=== PATIENT | male | born 1950 | race Caucasian/White ===

== ENCOUNTER 2022-10-10 13:31 | Outpatient (OUT) | payer MEDICARE, OTHER, SELFPAY ==
--- NOTE | 2022-10-10 13:36 | MR_ITS ---
The [address] [address] Patient Name: LISA LUGO MRN: [id number] date: 1950 Sex: M Assigned Patient Location: MRI Current Patient Location: MRI Accession/Order Number: [id number] Exam Date: 10/10/2022 13:50 Report Date: 10/10/2022 17:05 At the request of: JUANA GUTIERREZ Procedure: MR knee RT wo con EXAMINATION: MR knee RT wo con HISTORY: M23.91 ; chronic medial right knee pain and swelling COMPARISON: No relevant comparison available. TECHNIQUE: A complete multi-planar MRI was performed. FINDINGS: MEDIAL COMPARTMENT MEDIAL MENISCUS: No visible tear or significant degeneration. CARTILAGE: No visible defect. BONES: No marrow pathology, fracture, or significant arthropathy. MCL AND MEDIAL CAPSULE: Grade II sprain of the medial collateral ligament. LATERAL COMPARTMENT LATERAL MENISCUS: No visible tear or significant degeneration. CARTILAGE: No visible defect. BONES: No marrow pathology, fracture, or significant arthropathy. LCL/POSTEROLAT COMPLEX: Normal lateral collateral ligament, fascicles, lateral capsule and ligaments. ANTERIOR COMPARTMENT PATELLA: No marrow pathology, fracture, or significant arthropathy. CARTILAGE: Marked thinning of cartilage overlying the lateral facet. TENDONS: Normal. EFFUSION: Large joint effusion. ACL: Normal appearing ligament. PCL: Normal appearing ligament. MENISCOFEMORAL: Normal meniscofemoral ligaments. OTHER: Small Manning's cyst. IMPRESSION: 1. Grade 2-3 strain of the medial collateral ligament. 2. Large joint effusion. 3. No appreciable meniscal tear. 4. Marked thinning of the patella articular cartilage overlying the lateral facet. 5. Small Manning's cyst. Electronically authenticated by: HEBER ALMONTE Date: 10/10/2022 17:05
== END 2022-10-10 13:32 ==
LOC: MRI 13:31
PROVIDERS: PCP Internal Medicine; Visit Provider Internal Medicine
DX: M23.91 Unspecified internal derangement of right knee (principal); M71.21 Synovial cyst of popliteal space [Baker], right knee
CPT/HCPCS: 73721

== ENCOUNTER 2022-10-29 07:28 | Outpatient (OUT) | payer MEDICARE, OTHER, SELFPAY ==
[2022-10-29 07:54] LABS: Basophils Percent Auto 0.4 % (0.2-2.0); Eosinophils Percent Auto 1.2 % (0.9-7.0); Hematocrit 38.7 % (42.0-54.0); Hemoglobin 12.5 g/dL (14.0-18.0); Immature Granulocytes Abs Auto 0.01 10^3/uL (0.00-0.03); Immature Granulocytes Pct Auto 0.4 % (0.0-0.5); Lymphocytes Absolute Auto 0.9 10^3/uL (1.2-3.8); Lymphocytes Percent Auto 34.9 % (20.5-60.0); Mean Corpuscular HGB Conc 32.3 g/dL (29.9-35.2); Mean Corpuscular Hemoglobin 28.7 pg (25.9-34.0); Mean Corpuscular Volume 88.8 fL (80.0-94.0); Mean Platelet Volume 10.3 fL (9.5-13.5); Monocytes Absolute Auto 0.2 10^3/uL (0.3-0.8); Monocytes Percent Auto 8.7 % (1.7-12.0); Neutrophils Absolute Auto 1.4 10^3/uL (1.4-6.5); Neutrophils Percent Auto 54.4 % (43.0-75.0); Platelet Count 162 10^3/uL (150-450); Red Blood Count 4.36 10^6/uL (4.70-6.10); Red Cell Distribution Width 13.7 % (11.0-15.0); White Blood Count 2.5 10^3/uL (4.0-11.0)
[2022-10-29 08:10] LABS: Estimated Average Glucose 151 mg/dL; Glycohemoglobin A1C 6.9 % (4.5-6.2)
[2022-10-29 08:12] LABS: Alanine Aminotransferase 50 U/L (16-63); Anion Gap 13.1; BUN Creatinine Ratio 17.7; Carbon Dioxide 27.7 mmol/L (21.0-32.0); Chloride 105 mmol/L (98-107); Chol HDL Ratio 2.9; Cholesterol 123 mg/dL (<=200); Estimated GFR (African America >60 (>=60); Estimated GFR (Non-African Ame >60 (>=60); Glucose 112 mg/dL (74-106); HDL Cholesterol 43 mg/dL (40-60); Potassium 3.8 mmol/L (3.5-5.1); Sodium 142 mmol/L (136-145); Triglycerides 154 mg/dL (<=150); VLDL CHOLESTEROL 30.8 mg/dL
[2022-10-29 10:32] LABS: Microalbumin Urine Random 1.6 mg/dL (<=30.0)
== END 2022-10-29 07:29 | disposition home or self-care (01) ==
LOC: LAB 07:30
PROVIDERS: PCP Internal Medicine; Visit Provider Internal Medicine
DX: E11.65 Type 2 diabetes mellitus with hyperglycemia (principal); Z79.899 Other long term (current) drug therapy; I10 Essential (primary) hypertension; E78.2 Mixed hyperlipidemia
CPT/HCPCS: 36415; 80048; 80061; 82043; 83036; 84460; 85025

== ENCOUNTER 2023-04-02 07:25 | Outpatient (OUT) | payer MEDICARE, OTHER, SELFPAY ==
[2023-04-02 07:45] LABS: Basophils Percent Auto 0.6 % (0.2-2.0); Eosinophils Percent Auto 0.3 % (0.9-7.0); Hematocrit 39.5 % (42.0-54.0); Hemoglobin 12.7 g/dL (14.0-18.0); Immature Granulocytes Abs Auto 0.01 10^3/uL (0.00-0.03); Immature Granulocytes Pct Auto 0.3 % (0.0-0.5); Lymphocytes Absolute Auto 0.9 10^3/uL (1.2-3.8); Lymphocytes Percent Auto 26.9 % (20.5-60.0); Mean Corpuscular HGB Conc 32.2 g/dL (29.9-35.2); Mean Corpuscular Hemoglobin 28.8 pg (25.9-34.0); Mean Corpuscular Volume 89.6 fL (80.0-94.0); Mean Platelet Volume 10.4 fL (9.5-13.5); Monocytes Absolute Auto 0.3 10^3/uL (0.3-0.8); Monocytes Percent Auto 7.9 % (1.7-12.0); Neutrophils Absolute Auto 2.2 10^3/uL (1.4-6.5); Platelet Count 187 10^3/uL (150-450); Red Blood Count 4.41 10^6/uL (4.70-6.10); Red Cell Distribution Width 13.8 % (11.0-15.0); White Blood Count 3.4 10^3/uL (4.0-11.0)
[2023-04-02 08:33] LABS: Alanine Aminotransferase 52 U/L (16-63); BUN Creatinine Ratio 17.4; Calcium 8.9 mg/dL (8.5-10.1); Carbon Dioxide 29.9 mmol/L (21.0-32.0); Chloride 104 mmol/L (98-107); Chol HDL Ratio 2.7; Cholesterol 118 mg/dL (<=200); Estimated GFR (African America >60 (>=60); Estimated GFR (Non-African Ame >60 (>=60); Glucose 154 mg/dL (74-106); HDL Cholesterol 43 mg/dL (40-60); Potassium 3.9 mmol/L (3.5-5.1); Sodium 142 mmol/L (136-145); Triglycerides 176 mg/dL (<=150); VLDL CHOLESTEROL 35.2 mg/dL
[2023-04-02 08:54] LABS: Estimated Average Glucose 160 mg/dL; Glycohemoglobin A1C 7.2 % (4.5-6.2)
[2023-04-02 09:18] LABS: Microalbumin Urine Random 6.4 mg/dL (<=30.0)
== END 2023-04-02 07:26 | disposition home or self-care (01) ==
PROVIDERS: PCP Internal Medicine; Visit Provider Internal Medicine
DX: E78.2 Mixed hyperlipidemia (principal); Z79.899 Other long term (current) drug therapy; E11.65 Type 2 diabetes mellitus with hyperglycemia; I25.10 Atherosclerotic heart disease of native coronary artery without angina pectoris
CPT/HCPCS: 36415; 80048; 80061; 82043; 83036; 84460; 85025

== ENCOUNTER 2023-09-17 09:30 | Outpatient (OUT) | payer MEDICARE, OTHER, SELFPAY ==
--- NOTE | 2023-09-17 09:47 | US_ITS ---
[place] [id number] Patient Name: LISA LUGO MRN: [id number] date: 1950 Sex: M Assigned Patient Location: US Current Patient Location: Accession/Order Number: [id number] Exam Date: 09/17/2023 09:49 Report Date: 09/18/2023 06:06 At the request of: FRANCOISE BARONE Procedure: US renal BI EXAMINATION: US renal BI HISTORY: Gross hematuria COMPARISON: CT abdomen pelvis 11/25/2021 TECHNIQUE: Ultrasound examination was performed of the kidneys and urinary bladder. FINDINGS: RIGHT KIDNEY: No evidence of pelvocaliectasis, mass, or calculi. Slight cortical thinning, 9 mm. Normal renal cortical parenchymal echogenicity. Color Doppler demonstrates blood flow within the kidney. Kidney: 11.9 x 5.9 x 4.9 cm LEFT KIDNEY: No evidence of pelvocaliectasis, mass, or calculi. No significant cortical thinning. Normal renal cortical parenchymal echogenicity. Color Doppler demonstrates blood flow within the kidney. Kidney: 11.1 x 4.90 4.8 cm BLADDER: No visible wall thickening, mass, or calculi. Slightly heterogeneous prostate, 4.9 x 3.6 x 2.3 cm in size. US/US renal BI IMPRESSION: 1. Unremarkable kidneys and urinary bladder. 2. Slightly heterogeneous prostate. Electronically authenticated by: HEBER ALMONTE Date: 09/18/2023 06:06
--- OUTSIDE RECORDS SUMMARY | 2023-09-17 10:09 | XMS_ITS | CCD ---
Author Organization [facility] Care Team Providers Care Car Hiker Name Role Phone THERON MENDOZA Unavailable Unavailable TINO GUNDERSON Unavailable Unavailable RACHELL, MO GREGORIO Unavailable Unavailable RACHELL, MO AM Unavailable Unavailable IN Unavailable Unavailable UNKNOWN, PROVIDER Unavailable Unavailable UNKNOWN, PROVIDER Unavailable Unavailable UNKNOWN, PROVIDER Unavailable Unavailable GUIDO, THERON Unavailable Unavailable GUIDO, THERON Unavailable Unavailable PHYSICIAN, DEFAULT Unavailable Unavailable PHYSICIAN, DEFAULT Unavailable Unavailable GUIDO, THERON Unavailable Unavailable GUIDO, THERON Primary Care Physician [phone] GUIDO, DR ARIAS Primary Care Unavailable ELLIE, DR OWUSU Admitting Unavailable ARGUETA, DR OWUSU Attending Unavailable ARGUETA, DR OWUSU Consulting Unavailable SCHNEBLE, PARAS Consulting Unavailable BALL, DR ARIAS Attending Unavailable BALL, DR ARIAS Primary Care Unavailable BALL, DR ARIAS Admitting Unavailable BALL, DR ARIAS Attending Unavailable BALL, DR ARIAS Consulting Unavailable BALL, DR ARIAS Primary Care Unavailable BALL, DR ARIAS Admitting Unavailable BALL, DR ARIAS Referring Unavailable BALL, DR ARIAS Attending Unavailable BALL, DR ARIAS Consulting Unavailable BALL, DR ARIAS Primary Care Unavailable BALL, DR ARIAS Admitting Unavailable BALL, DR ARIAS Attending Unavailable BALL, DR ARIAS Consulting Unavailable BALL, DR ARIAS Primary Care Unavailable BALL, DR ARIAS Admitting Unavailable Ball, Theron Unavailable Tom ARGUETA Attending Unavailable Tom ARGUETA Attending Unavailable Allergies Allergy Classification Reported Allergen(s) Allergy Type Date of Onset Reaction(s) Facility (1 source) 71694,00; Translations: [03852,00] Propensity to adverse reactions (disorder) 9 [facility] Repository (11 sources) [facility] Drug Allergy diarrhea, Unknown [email or web address] Other (3 sources) patient allergy list reviewed by nurse or physicia Propensity to adverse reactions 8 Comment:Done [email or web address] Other (1 source) No Known Medication Allergies; Translations: [No Known Medication Allergies] Propensity to adverse reactions (disorder) [facility] Repository Medications Current Medications Medication Drug Class(es) Dates Sig (Normalized) Sig (Original) aspirin 81 mg oral tablet (9 sources) Platelet Aggregation Inhibitor, Nonsteroidal Anti-inflammatory Drug Start: 12-15-2018 take 1 tablet by mouth once daily aspirin 81 mg oral tablet 81 mg = 1 tab(s), Oral, Daily Start Date: 12/15/18 Status: Ordered take 1 tablet by luis felipe th every twenty-four hours Aspirin 81 MG 1 tablet Orally Once a day Active Aspirin Active atenolol 25 mg oral tablet (9 sources) beta-Adrenergic Cesar Start: 12-15-2018 take 1 tablet by mouth once daily atenolol 25 mg Tab 25 mg = 1 tab(s), Oral, Daily Start Date: 12/15/18 Status: Ordered atorvastatin 80 mg oral tablet (9 sources) HMG-CoA Reductase Inhibitor Start: 12-16-2018 take 1 tablet by mouth once daily atorvastatin 80 mg Tab 80 mg = 1 tab(s), Oral, Daily Start Date: 12/16/18 Status: Ordered celecoxib (8 sources) Nonsteroidal Anti-inflammatory Drug CeleBREX Not-Taking CeleBREX Active clopidogrel 75 mg oral tablet (7 sources) P2Y12 Platelet Inhibitor Start: 12-16-2018 take 1 tablet by mouth once daily Plavix 75 mg Tab 75 mg = 1 tab(s), Oral, Daily Start Date: 12/16/18 Status: Ordered glimepiride 1 mg oral tablet (1 source) Sulfonylurea Start: 03-21-2020 take 2 tablets by mouth once daily glimepiride 1 mg Tab 2 mg = 2 tab(s), Oral, Daily, Refills(s) 0 Start Date: 03/21/20 Status: Ordered 3 ml insulin glargine 100 unt/ml pen injector (6 sources) Insulin Analog Lantus SoloStar 100 UNIT/ML INJECT 50 UNITS UNDER THE SKIN DAILY Active Lantus Solostar Pen (1 source) Start: 12-15-2018 inject 50 [IU] by subcutaneous injection once daily Lantus Solostar Pen 50 unit(s), SubCutaneous, Daily Start Date: 12/15/18 Status: Ordered pantoprazole 40 mg delayed release oral tablet (9 sources) Proton Pump Inhibitor Start: 12-16-2018 take 1 tablet by mouth once daily Pantoprazole [address] Tab 40 mg = 1 tab(s), Oral, Daily Start Date: 12/16/18 Status: Ordered pioglitazone 15 mg oral tablet (7 sources) Peroxisome Proliferator Receptor alpha Agonist, Peroxisome Proliferator Receptor gamma Agonist, Thiazolidinedione Start: 04-10-2021 take 1 mg by mouth twice daily pioglitazone 15 mg Tab mg tab(s), Oral, BID, Refills(s) 0 Start Date: 04/10/21 Status: Ordered Pioglitazone HCl 15 mg TAKE 1 TABLET DAILY Active Completed/Discontinued Medications Medication Drug Class(es) Dates Sig (Normalized) Sig (Original) cephalexin 500 mg oral capsule (1 source) Cephalosporin Antibacterial Start: 11-20-2021 take 1 capsule by mouth once daily Keflex 500 mg Cap 500 mg = 1 cap(s), Oral, Daily, Take 1 tab day before procedure and 1 after procedure, # 2 cap(s), Refills(s) 0, Pharmacy: [facility]/pharmacy #[id number], 177, cm, 11/20/21 12:47:00 EDT, Height/Length Dosing, 90.3, kg, 11/20/21 12:47:00 EDT, Weight Dosing Start Date: 11/20/21 Status: Ordered Metformin & Diet Manage Prod (8 sources) Metformin & Diet Manage Prod Not-Taking Metformin & Diet Manage Prod Active Suprep Bowel Prep . (8 sources) Start: 09-18-2013 Suprep Bowel P rep . as directed Orally 1 for 1 August, Not-Taking Start: 09-18-2013 Suprep Bowel P rep . as directed Orally 1 for August, Active Problems Active Problems Problem Classification Problem Date Documented Date Episodic/Chronic Allergic reactions (3 sources) Allergic contact dermatitis due to plants, except food; Translations: [Allergic contact dermatitis due to plants, except food] Episodic Calculus of urinary tract (4 sources) History of calculus of kidney; Translations: [H/O: urinary stone] 03-21-2020 Episodic Cardiac dysrhythmias (3 sources) Palpitations; Translations: [Palpitations] Episodic Chronic kidney disease (1 source) Chronic kidney disease; Translations: [CHRONIC KIDNEY DISEASE STAGE 3A] Onset: 09-20-2021 Chronic obstructive pulmonary disease and bronchiectasis (3 sources) Simple chronic bronchitis; Translations: [Simple chronic bronchitis] Chronic Coronary atherosclerosis and other heart disease (20 sources) Atherosclerotic heart disease of [place] coronary artery with unstable angina pectoris; Translations: [Atherosclerotic heart disease of [place] coronary artery without angina pectoris] Onset: 08-25-2013 03-20-2019 Chronic Deficiency and other anemia (4 sources) Anemia; Translations: [Anemia, unspecified] 03-21-2020 Episodic Deficiency and other anemia (6 sources) Iron deficiency anemia; Translations: [Iron deficiency anemia, unspecified] Episodic Deficiency and other anemia (1 source) Anemia, unspecified Episodic Diabetes mellitus with complications (20 sources) Type 2 diabetes mellitus with hyperglycemia; Translations: [Type 2 diabetes mellitus with diabetic chronic kidney disease] Onset: 06-26-2016 Chronic Diabetes mellitus without complication (9 sources) Type 2 diabetes mellitus without complications; Translations: [Type 2 diabetes mellitus] Onset: 08-25-2013 12-15-2018 Chronic Diabetes mellitus without complication (1 source) Glycosuria 04-06-2019 Episodic Diseases of white blood cells (8 sources) Lymphocytopenia; Translations: [Lymphocytopenia] Onset: 11-30-2021 03-21-2020 Chronic Disorders of lipid metabolism (18 sources) Hyperlipidemia, unspecified; Translations: [Hyperlipidemia] Onset: 08-25-2013 12-15-2018 Chronic Esophageal disorders (8 sources) Gastro-esophageal reflux disease without esophagitis; Translations: [Gastroesophageal reflux disease] Onset: 08-25-2013 Resolved: 09-16-2019 03-20-2019 Chronic Essential hypertension (20 sources) Essential (primary) hypertension; Translations: [Benign hypertension] Onset: 08-25-2013 12-15-2018 Chronic Genitourinary symptoms and ill-defined conditions (11 sources) Blood in urine; Translations: [Gross hematuria] Onset: 11-20-2021 Episodic Hyperplasia of prostate (17 sources) Benign prostatic hypertrophy with outflow obstruction; Translations: [Benign prostatic hyperplasia with lower urinary tract symptoms] Onset: 08-25-2013 Chronic Immunizations and screening for infectious disease (3 sources) Vaccination given; Translations: [Encounter for immunization] Episodic Inflammatory conditions of male genital organs (1 source) Chronic prostatitis 03-20-2019 Chronic Joint disorders and dislocations; trauma-related (9 sources) Derangement of right knee; Translations: [Unspecified internal derangement of right knee] Chronic Osteoarthritis (3 sources) Osteoarthritis; Translations: [Polyosteoarthritis, unspecified] Onset: 09-18-2013 Chronic Other aftercare (6 sources) 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; Translations: [snf (current) use of antithrombotics/antip latelets] Onset: 04-15-2017 Episodic Other aftercare (8 sources) Long-term current use of insulin; Translations: [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] Episodic Other aftercare (1 source) Other senior living (current) drug therapy Episodic Other injuries and conditions due to external causes (3 sources) History of fall; Translations: [History of falling] Episodic Other liver diseases (6 sources) Abnormal liver function; Translations: [Abnormal liver function study] Chronic Other lower respiratory disease (1 source) Shortness of breath Episodic Other male genital disorders (1 source) Pain in testicle 03-20-2019 Episodic Other male genital disorders (1 source) Testicular mass 03-20-2019 Episodic Other nervous system disorders (2 sources) Chronic pain; Translations: [Other chronic pain] Chronic Other nervous system disorders (1 source) Other chronic pain Chronic Other non-traumatic joint disorders (1 source) Pain in right knee Episodic Other nutritional; endocrine; and metabolic disorders (3 sources) Obesity; Translations: [Obesity, unspecified] Onset: 08-25-2013 Chronic Other screening for suspected conditions (not mental disorders or infectious disease) (1 source) Encounter for screening for malignant neoplasm of prostate Episodic Other skin disorders (1 source) Actinic keratosis 12-16-2018 Episodic Other skin disorders (1 source) Epidermoid cyst of skin 03-22-2020 Episodic Other skin disorders (1 source) Epidermoid cyst of skin of neck 12-16-2018 Episodic Other skin disorders (1 source) Senile hyperkeratosis 01-30-2019 Episodic Other skin disorders (6 sources) Sebaceous cyst; Translations: [Sebaceous cyst] Onset: 11-21-2018 Episodic Substance-related disorders (3 sources) Tobacco user; Translations: [Nicotine dependence, cigarettes, in remission] Chronic Unclassified (1 source) Stenosis of coronary artery stent, initial encounter; Translations: [STENOSIS OF CORONARY ARTERY STENT, INITIAL ENCOUNTER] Onset: 04-15-2017 Unclassified (2 sources) Unknown / UNK(Unknown) Onset: 04-15-2017 Unclassified (1 source) Drug therapy finding 04-06-2019 Unclassified (1 source) Finding of sensation of bladder 03-20-2019 Past or Other Problems Problem Classification Problem Date Documented Date Episodic/Chronic Abdominal pain (3 sources) Right upper quadrant pain; Translations: [Right upper quadrant pain] Onset: 06-26-2016 Episodic Acute posthemorrhagic anemia (3 sources) Acute posthemorrhagic anemia; Translations: [Acute posthemorrhagic anemia] Onset: 04-20-2018 Episodic Bacterial infection; unspecified site (6 sources) Bacterial infectious disease; Translations: [Other bacterial infections of unspecified site] Onset: 01-27-2016 Episodic Coronary atherosclerosis and other heart disease (1 source) Presence of coronary angioplasty implant and graft; Translations: [PRESENCE OF CORONARY ANGIOPLASTY IMPLANT AND GRAFT] Onset: 04-15-2017 Episodic Inflammatory conditions of male genital organs (3 sources) Acute prostatitis; Translations: [Acute prostatitis] Onset: 04-02-2018 Episodic Joint disorders and dislocations; trauma-related (3 sources) Current tear of medial cartilage AND/OR meniscus of knee; Translations: [Other tear of cartilage or meniscus of knee, current] Onset: 02-23-2014 Episodic Malaise and fatigue (6 sources) Malaise; Translations: [Other malaise] Onset: 08-25-2013 Episodic Nausea and vomiting (3 sources) Nausea; Translations: [Nausea] Onset: 09-25-2016 Episodic Nonspecific chest pain (4 sources) Chest pain, unspecified; Translations: [CHEST PAIN, UNSPECIFIED] Onset: 04-15-2017 Episodic Other non-traumatic joint disorders (3 sources) Arthralgia of the pelvic region and thigh; Translations: [Pain in joint, pelvic region and thigh] Onset: 04-23-2018 Episodic Other non-traumatic joint disorders (3 sources) Arthralgia of the lower leg; Translations: [Pain in joint, lower leg] Onset: 02-23-2014 Episodic Screening or history of mental health and substance abuse (4 sources) Personal history of nicotine dependence; Translations: [History of tobacco use] Onset: 06-26-2016 Episodic Spondylosis; intervertebral disc disorders; other back problems (6 sources) Sciatica; Translations: [Lumbago with sciatica, left side] Onset: 09-18-2013 Episodic Unclassified (3 sources) Long-term current use of drug therapy; Translations: [Long-term (current) use of other medications] Onset: 09-25-2016 Results Test Name Value Interpretation Reference Range Facility Reminderson 08-22-2023 Reminders - From: Sade Kilgore To: [facility] - Recalls Ellie; Sent: 05/02/2022 10:13:25 EST Show up: 10/27/2022 10:13:00 EDT Subject: renal US and fu Due Date/Time: 11/19/2022 10:13:00 EDT Reminder/Recall Patient is due in November 2022 for 1 year fu with renal US From: Tonja Valadez MA ([facility] - Recalls Ellie) To: [facility] - Recalls Ellie; Sent: 11/13/2022 13:34:49 EDT Show up: 08/12/2023 13:34:00 EDT Subject: RE: renal US and fu Due Date/Time: 09/13/2023 13:34:00 EDT Pt has 1yr f/u w/PSA 09/20/23. Will schedule MINESH prior to that appt. LM on informing pt that [facility] will be reaching out to get MINESH scheduled. Appt 09/20/23 to review results. Order & demo's faxed to the [facility] CS. MINESH scheduled 09/17/23 @ [facility] Ambulatory Visit Summaryon 0 09-17-2022 Ambulatory Visit Summary LISA LUGO :1950 Visit Date:09/17/2022 Ambulatory Visit Instructions Your Diagnosis BPH with urinary obstruction Gross hematuria Tests Performed Urnls Dip Stick Auto w/o Microscopy POC 47564 Your Care Team Attending Physician - ELLIE NUÑEZ, Tom Cohen Primary Care Physician - THERON MENDOZA DO This Is Your Medications List Contact prescribing physician if questions or concerns aspirin (aspirin 81 mg oral tablet) atenolol (atenolol 25 mg Tab) atorvastatin (atorvastatin 80 mg Tab) clopidogrel (Plavix 75 mg Tab) glimepiride (glimepiride 1 mg Tab) insulin glargine (Lantus Solostar Pen) pantoprazole (Pantoprazole [address] Tab) pioglitazone (pioglitazone 15 mg Tab) Procedures Performed Cystoscopy (04/08/2018), Colonoscopy normal (04/29/2013), TURP - Transurethral resection of prostate (10/11/2011), Cystoscopy (09/14/2011), Cystoscopy (05/02/2010), Cystoscopy (04/18/2010), Laser ablation of prostate (09/07/2008), Cystoscopy (08/31/2008), Urodynamics (08/25/2008), Transrectal biopsy of prostate using ultrasound (US) guidance (08/03/2008), Arthroscopy of knee, Cardiac surgery procedure, Patient has a coronary artery stent (Peri2), Placement of stent in cardiac conduit. Discharge Vitals Heart Rate (Peripheral) 72 Respiratory Rate 16 Blood Pressure 129/81 Height 177 cm Height 70 in Weight 90 kg Weight 198 lb BMI 28.73 What to do next You Need to Schedule the Following Appointments Follow Up with ELLIE NUÑEZ, SANDRA Masters When: Where: [facility] [address], [place] [address]- Medications What How Much When Instructions Unchanged aspirin (aspirin 81 mg oral tablet) 1 Tablets By Mouth Every day Contact prescribing physician if questions or concerns Unchanged atenolol (atenolol 25 mg Tab) 1 Tablets By Mouth Every day Contact prescribing physician if questions or concerns Unchanged atorvastatin (atorvastatin 80 mg Tab) 1 Tablets By Mouth Every day Contact prescribing physician if questions or concerns Unchanged clopidogrel (Plavix 75 mg Tab) 1 Tablets By Mouth Every day Contact prescribing physician if questions or concerns Unchanged glimepiride (glimepiride 1 mg Tab) 2 Tablets By Mouth Every day Contact prescribing physician if questions or concerns Unchanged insulin glargine (Lantus Solostar Pen) 50 Units Subcutaneous Every day Contact prescribing physician if questions or concerns Unchanged pantoprazole (Pantoprazole [address] Tab) 1 Tablets By Mouth Every day Contact prescribing physician if questions or concerns Unchanged pioglitazone (pioglitazone 15 mg Tab) By Mouth 2 times a day Contact prescribing physician if questions or concerns Test Results Urnls Dip Stick Auto w/o Microscopy POC 88157 (09/17/2022) Bilirubin Urine Dipstick - Negative Blood Urine Dipstick - Negative Glucose Urine Dipstick - 2+ 500 mg/dl Ketones Urine Dipstick - Negative Leukocytes Urine Dipstick - Negative Nitrite Urine Dipstick - Negative Protein Urine Dipstick - Negative Specific [place] Urine Dipstick - 1.015 Urine Appearance Urine Dipstick - Clear Urine Color Urine Dipstick - Yellow Urobilinogen Urine Dipstick - Normal 0.2-1 EU/dl pH Urine Dipstick - 5.5 Allergies No Known Allergies No Known Medication Allergies Problems Ongoing - Any problem that you are currently receiving treatment for. Anemia Anticoagulated ASHD (arteriosclerotic heart disease) BPH - benign prostatic hyperplasia BPH with urinary obstruction CAD (coronary artery disease) Chronic prostatitis Epidermal cyst Epidermal cyst of neck Esophageal reflux Feeling of incomplete bladder emptying Glycosuria Gross hematuria History of nephrolithiasis Hyperlipidemia Hypertension Lymphocytopenia Mass of testicle Nocturia Seborrheic keratosis Solar keratosis Testicle pain Type 2 diabetes mellitus Urinary retention Historical - Any problem that you are no longer receiving treatment for. Benign hypertension BPH - benign prostatic hyperplasia Diabetes mellitus type 2 Hyperlipidemia Education Materials Benign Prostatic Hyperplasia Benign prostatic hyperplasia (BPH) is an enlarged prostate gland that is caused by the normal aging process. The prostate may get bigger as a man gets older. The condition is not caused by cancer. The prostate is a walnut-sized gland that is involved in the production of semen. It is located in front of the rectum and below the bladder. The bladder stores urine. The urethra carries stored urine out of the body. An enlarged prostate can press on the urethra. This can make it harder to pass urine. The buildup of urine in the bladder can cause infection. Back pressure and infection may progress to bladder damage and kidney (renal) failure. What are the causes? This condition is part of the normal aging process. However, not all men develop problems from this condition (more content not included)... Normal [facility] Patient Educationon 09-18-19 Patient Education Urology Benign Prostatic Hyperplasia Benign prostatic hyperplasia (BPH) is an enlarged prostate gland that is caused by the normal aging process. The prostate may get bigger as a man gets older. The condition is not caused by cancer. The prostate is a walnut-sized gland that is involved in the production of semen. It is located in front of the rectum and below the bladder. The bladder stores urine. The urethra carries stored urine out of the body. An enlarged prostate can press on the urethra. This can make it harder to pass urine. The buildup of urine in the bladder can cause infection. Back pressure and infection may progress to bladder damage and kidney (renal) failure. What are the causes? This condition is part of the normal aging process. However, not all men develop problems from this condition. If the prostate enlarges away from the urethra, urine flow will not be blocked. If it enlarges toward the urethra and compresses it, there will be problems passing urine. What increases the risk? This condition is more likely to develop in men older than 50 years. What are the signs or symptoms? Symptoms of this condition include: ? Getting up often during the night to urinate. ? Needing to urinate frequently during the day. ? Difficulty starting urine flow. ? Decrease in size and strength of your urine stream. ? Leaking (dribbling) after urinating. ? Inability to pass urine. This needs immediate treatment. ? Inability to completely empty your bladder. ? Pain when you pass urine. This is more common if there is also an infection. ? Urinary tract infection (UTI). How is this diagnosed? This condition is diagnosed based on your medical history, a physical exam, and your symptoms. Tests will also be done, such as: ? A post-void bladder scan. This measures any amount of urine that may remain in your bladder after you finish urinating. ? A digital rectal exam. In a rectal exam, your health care provider checks your prostate by putting a lubricated, gloved finger into your rectum to feel the back of your prostate gland. This exam detects the size of your gland and any abnormal lumps or growths. ? An exam of your urine (urinalysis). ? A prostate specific antigen (PSA) screening. This is a blood test used to screen for prostate cancer. ? An ultrasound. This test uses sound waves to electronically produce a picture of your prostate gland. Your health care provider may refer you to a specialist in kidney and prostate diseases (urologist). How is this treated? Once symptoms begin, your health care provider will monitor your condition (active surveillance or watchful waiting). Treatment for this condition will depend on the severity of your condition. Treatment may include: ? Observation and yearly exams. This may be the only treatment needed if your condition and symptoms are mild. ? Medicines to relieve your symptoms, including: ? Medicines to shrink the prostate. ? Medicines to relax the muscle of the prostate. ? Surgery in severe cases. Surgery may include: ? Prostatectomy. In this procedure, the prostate tissue is removed completely through an open incision or with a laparoscope or robotics. ? Transurethral resection of the prostate (TURP). In this procedure, a tool is inserted through the opening at the tip of the penis (urethra). It is used to cut away tissue of the inner core of the prostate. The pieces are removed through the same opening of the penis. This removes the blockage. ? Transurethral incision (TUIP). In this procedure, small cuts are made in the prostate. This lessens the prostate's pressure on the urethra. ? Transurethral microwave thermotherapy (TUMT). This procedure uses microwaves to create heat. The heat destroys and removes a small amount of prostate tissue. ? Transurethral needle ablation (TUNA). This procedure uses radio frequencies to destroy and remove a small amount of prostate tissue. ? Interstitial laser coagulation (ILC). This procedure uses a laser to destroy and remove a small amount of prostate tissue. ? Transurethral electrovaporization (TUVP). This procedure uses electrodes to destroy and remove a small amount of prostate tissue. ? Prostatic urethral lift. This procedure inserts an implant to push the lobes of the prostate away from the urethra. Follow these instructions at home: ? Take [id number] and prescription medicines only as told by your health care provider. ? Monitor your symptoms for any changes. Contact your health care provider with any changes. ? Avoid drinking large amounts of liquid before going to bed or out in public. ? Avoid or reduce how much caffeine or alcohol you drink. ? Give yourself time when you urinate. ? Keep all follow-up visits. This is important. Contact a health care provider if: ? You have unexplained back pain. ? Your symptoms do not get better with treatment. ? You develop side effects from the medicine (more content not included)... Normal [facility] Urology Office/Clinic Noteon 09-17-2022 Urology Office/Clinic Note Chief Complaint 10 month f/u with PSA HPI Staff 1yr PSA (scheduled from encounter on 04/10/21, then rescheduled) DX: BPH *No Urology Medications. Pt has since then been seen in our office on 11/20/21 due to gross hematuria. Cysto done 12/12/21 NEG FISH/Inconclusive Cytology done at that time. CT a/p done 11/25/21 There is a reminder in pt's chart for Renal US in November. Current PSA done 09/12/22 is 2.0 and 36.5%. Previous done 03/20/21 was 2.64. Dysuria: no Incomplete bladder emptying: no Hematuria: no Frequency: no Urgency: no Nocturia: 2x Stream: no straining or intermittency Leaking: n Post void dripping: no Wearing pads/ Depends: no Urge incontinence: no Stress incontinence: no Incontinence without Sensory Awareness: no Abdominal pain: no Flank pain: no Sexual complaints: no History of Present Illness Tests reviewed: reviewed UA, PSA. I have reviewed the previous health record information and history for this patient from Dr. Argueta. I have reviewed and verified the staff HPI to be accurate for this encounter. There have been no associated fever, chills, flank pain, or blood in the urine. Denies any urinary infections since last encounter. Review of Systems PHQ Score Initial Depression Screen Score: 0 ROS - Provider Constitutional: denies weight loss, denies hot flashes. Eyes: denies eye problems. Gastrointestinal: denies nausea, denies vomiting. Cardiovascular: denies chest pain or angina. Integumentary: no dryness Musculoskeletal: denies musculoskeletal symptoms. ENMT: denies otolaryngeal symptoms. Respiratory: no shortness of breath. Heme/Lymph: denies easy bleeding tendency, denies easy bruising tendency. Psychiatric: no confusion, no anxiety. Genitourinary: See HPI. Physical Exam Vitals & Measurements HR: 72(Peripheral) RR: 16 BP: 129/81 HT: 70 in HT: 177 cm WT: 90 kg WT: 198 lb BMI: 28.73 General Appearance: alert, no distress, well nourished, well developed male. Genitourinary: normal scrotum, normal testes, normal urethra, normal epididymis, normal vas deferens/spermatic cord. Flank Pain: none. Bladder: nonpalpable. Prostate: normal prostate, estimated weight 45 gms, no hard nodule observed. Assessment/Plan 1. BPH with urinary obstruction (N40.1: Benign prostatic hyperplasia with lower urinary tract symptoms) PSA: 03/20/21 - 2.64 09/12/22 - 2.00 & 37% UA today negative for blood and infection. PSA decreased fro prior. Will continue to monitor. Not taking any prostate meds. No urinary complaints. AYO today 45 gm, benign. Follow up 1 yr PSA or sooner if needed. Pt understands and agrees with plan. 2. Gross hematuria (R31.0: Gross hematuria) CT AP w con 11/25/21 [facility] - Enlarged, heterogeneous prostate. Circumferential bladder wall thickening is nonspecific in the setting of underdistention. Subcentimeter L superior pole hypoattenuating lesion is too small to accurately characterize, although statistically favored to represent a renal cyst. No hydro or stones. Fat-containing umbilical hernia measuring 9 mm. Cysto, FISH, cytol 12/12/21 - Cytol showed atypia, inconclusive. Cysto and FISH both neg. Reviewed neg hematuria workup with pt. Has not seen gross hematuria since prior encounter. -Reminder in chart for MINESH in Nov 2022. Follow-up With When Contact Information ELLIE NUÑZE, Tom Cohen, [facility] [address], [place] [address]- Additional Instructions: 1 yr PSA Patient Education Benign Prostatic Hyperplasia I, Trish Marcus, personally scribed for Dr. Argueta on 09/17/2022 11:36:09. . Documentation recorded by the scribe, Trish Marcus, accurately reflects the services(s) I performed and decisions made by me. Authenticated by Dr. Argueta on 09/17/2022 11:36:57. Problem List/Past Medical History Ongoing Anemia Anticoagulated ASHD (arteriosclerotic heart disease) BPH - benign prostatic hyperplasia BPH with urinary obstruction CAD (coronary artery disease) Chronic prostatitis Epidermal cyst Epidermal cyst of neck Esophageal reflux Feeling of incomplete bladder emptying Glycosuria Gross hematuria History of nephrolithiasis Hyperlipidemia Hypertension Lymphocytopenia Mass of testicle Nocturia Seborrheic keratosis Solar keratosis Testicle pain Type 2 diabetes mellitus Urinary retention Historical Benign hypertension BPH - benign prostatic hyperplasia Diabetes mellitus type 2 Hyperlipidemia Procedure/Surgical History Cystoscopy (04/08/2018), Colonoscopy normal (04/29/2013), TURP - Transurethral resection of prostate (10/11/2011), Cystoscopy (09/14/2011), Cystoscopy (05/02/2010), Cystoscopy (04/18/2010), Laser ablation of prostate (09/07/2008), Cystoscopy (08/31/2008), Urodynamics (08/25/2008), Transrectal biopsy of prostate using ultrasound (US) guidance (08/03/2008), Arthroscopy of knee, Cardiac surgery procedu (more content not included)... Normal [facility] Comment on above: Result Comment: Electronically Signed By : Tom ARGUETA MD\.br\Date and Time Signed: 09/17/22 11:37 EDT\.br\Electronically Co-Signed By: Trish Marcus\.br\Date and Time Co-Signed: 09/17/22 11:36 EDT Lab Reportson 09-13-2022 Lab Reports [id number] Normal [facility] GLYCOHEMOGLOBIN A1Con 2021 ADA RECOMMENDATION SEE BELOW Normal [facility] Comment on above: Result Comment: ADA RECOMMENDED LIMIT 4. 0 - 6.0 ADA THERAPEUTIC TARGET < 7.0 ACTION SUGGESTED > 7.0 Performed By: #### A 1C #### [facility] [address] [address] [address] Yara Chavez Glucose [Mass/Vol] 166 mg/dL Normal [facility] Comment on above: Performed By: #### A1C #### [facility] [address] [address] [address] Yara Chavez HbA1c (Bld) [Mass fraction] 7.4 % Critically high 4.5-6.2 [facility] Comment on above: Performed By: #### A1C #### [facility] [address] [address] ABD/PELV W CONon 11-27-19 CT ABD/PELV W CON EXAM: CT ABD/PELV W CON STUDY DATE: 11/25/2021 5:02 AM MDT COMPARISONS: None. INDICATION: Leonardo hematuria TECHNIQUE: Helically acquired multidetector CT of the abdomen and pelvis with the administration of 100 mL intravenous contrast. Oral contrast was also administered. Images were reconstructed in the axial plane and reformatted in coronal and sagittal planes. Dose reduction technique used: Automatic exposure control and/or adjustment of the mA and/or kV according to patient size and/or use of degenerative reconstruction technique. COMPARISON: None available. FINDINGS: Chest: Partially visualized coronary artery atherosclerotic calcifications. No pleural effusion or suspicious nodule/mass at the lung bases. Mild bibasilar atelectasis. Liver: Normal. Gallbladder and Bile Ducts: Normal. Kidney: Subcentimeter left superior pole hypoattenuating lesions. No hydronephrosis. No nephrolithiasis Adrenals: Normal. Spleen: Normal. Pancreas: Normal. Bowel and stomach: There has been transit of enteric contrast to the colon. No bowel dilation. Appendix: Incidental note is made of a normal appearing appendix. Pelvis: The prostate is enlarged and heterogeneous. Several phleboliths are noted at the pelvis. There is intramural bladder wall fat. Thickening of the bladder wall is nonspecific in the setting of underdistention. Delayed excretory phase of the bladder without evidence of intraluminal bladder mass. Mesentery/peritoneum: Unremarkable. Nodes: No pathologic lymphadenopathy. Vasculature: There is calcified and noncalcified atherosclerotic plaque of the aorta and branch vessels; no aneurysmal dilation. Bone: Multilevel degenerative changes throughout the visualized spine. Spinal canal stenosis suspected at L4-L5. Soft tissues: Fat-containing umbilical hernia measures up to 9 mm in transverse diameter. IMPRESSION: 1. Enlarged, heterogeneous prostate. Circumferential bladder wall thickening is nonspecific in the setting of underdistention. 2. Subcentimeter left superior pole hypoattenuating lesion is too small to accurately characterize, although statistically favored to represent a renal cyst. 3. No hydronephrosis or nephrolithiasis 4. Multilevel degenerative changes of the visualized spine with likely spinal canal stenosis at L4-L5. 5. Fat-containing umbilical hernia measuring 9 mm. 6. Partially visualized coronary artery atherosclerotic calcifications. Electronically authenticated by: PARAS SOMMERS Date: 2021-11-26 02:01 Normal [facility] CBC AUTO DIFFon 11-24-2021 BASO # 0.0 103/ul Normal 0.0-0.1 [facility] Comment on above: Performed By: #### CBC #### [facility] [address] [place] [address] Dr. Yara Chavez Basophils/100 WBC (Bld) 0.7 % Normal 0.2-2.0 [facility] Comment on above: Performed By: #### CBC #### [facility] [address] [place] [address] Dr. Yara hCavez EO # 0.0 103/ul Normal 0.0-0.7 [facility] Comment on above: Performed By: #### CBC #### [facility] [address] [place] [address] Dr. Yara Chavez Eosinophils/100 WBC (Bld) 1.0 % Normal 0.9-7.0 [facility] Comment on above: Performed By: #### CBC #### [facility] [address] [place] [address] Dr. Yara Chavez Erythrocyte distribution width (RBC) [Ratio] 14.7 % Normal 11.0-15.0 [facility] Comment on above: Performed By: #### CBC #### [facility] [address] [place] [address] Dr. Yraa Chavez Hematocrit (Bld) [Volume fraction] 38.7 % Critically low 42.0-54.0 [facility] Comment on above: Performed By: #### CBC #### [facility] [address] [place] [address] Dr. Yara Chavez Hemoglobin (Bld) [Mass/Vol] 12.3 g/dL Critically low 14.0-18.0 [facility] Comment on above: Performed By: #### CBC #### [facility] [address] [place] [address] Dr. Yara Chavez IG # 0.01 10e3/ul Normal 0.00-0.03 [facility] Comment on above: Performed By: #### CBC #### [facility] [address] [place] [address] Dr. Yara Chavez IG % 0.3 % Normal 0.0-0.5 [facility] Comment on above: Performed By: #### CBC #### [facility] [address] [place] [address] Dr. Yara Chavez LYMPH # 1.1 103/ul Critically low 1.2-3.8 [facility] Comment on above: Performed By: #### CBC #### [facility] [address] [place] [address] Dr. Yara Chavez Lymphocytes/100 WBC (Bld) 36.1 % Normal 20.5-60.0 [facility] Comment on above: Performed By: #### CBC #### [facility] [address] [place] [address] Dr. Yara Chavez MANUAL DIFF REQ NO Normal [facility] Comment on above: Performed By: #### CBC #### [facility] [address] [place] [address] Dr. Yara Chavez MCH (RBC) [Entitic mass] 28.0 pg Normal 25.9-34.0 [facility] Comment on above: Performed By: #### CBC #### [facility] [address] [place] [address] Dr. Yara Chavez MCHC (RBC) [Mass/Vol] 31.8 g/dL Normal 29.9-35.2 [facility] Comment on above: Performed By: #### CBC #### [facility] [address] [place] [address] Dr. Yara Chavez MCV (RBC) [Entitic vol] 88.2 fL Normal 80.0-94.0 [facility] Comment on above: Performed By: #### CBC #### [facility] [address] [place] [address] Dr. Yara Chavez MONO # 0.3 103/ul Normal 0.3-0.8 [facility] Comment on above: Performed By: #### CBC #### [facility] [address] [place] [address] Dr. Yara Chavez Monocytes/100 WBC (Bld) 9.5 % Normal 1.7-12.0 [facility] Comment on above: Performed By: #### CBC #### [facility] [address] [place] [address] Dr. Yara Chavez NEUT # 1.5 103/ul Normal 1.4-6.5 [facility] Comment on above: Performed By: #### CBC #### [facility] [address] [address] [address] Yara Chavez Neutrophils/100 WBC (Bld) 52.4 % Normal 43.0-75.0 [facility] Comment on above: Performed By: #### CBC #### [facility] [address] [address] [address] Yara Chavez Platelet mean volume (Bld) [Entitic vol] 10.1 fL Normal 9.5-13.5 [facility] Comment on above: Performed By: #### CBC #### [facility] [address] [address] [address] Yara Chavez PLT 195 103/ul Normal 150-450 [facility] Comment on above: Performed By: #### CBC #### [facility] [address] [place] [address] Dr. Yara Chavez RBC 4.39 106/ul Critically low 4.70-6.10 [facility] Comment on above: Performed By: #### CBC #### [facility] [address] [place] [address] Dr. Yara Chavez WBC 2.9 103/ul Critically low 4.0-11.0 [facility] Comment on above: Performed By: #### CBC #### [facility] [address] [place] [address] Dr. Yara Chavez LIPID PROFILEon 11-24-2021 CHOL-HDL RATIO NORM SEE BELOW Normal [facility] Comment on above: Result Comment: 3.3 - 4.4 LOW RISK 4.4 - 7.1 AVERAGE RISK 7.1 - 11.0 MODERATE RISK >11.0 HIGH RISK Performed By: #### A LT, BMP, LIPID #### [facility] [address] [place] [address] Dr. Yara Chavez Cholesterol [Mass/Vol] 124 mg/dL Normal <=200 [facility] Comment on above: Performed By: #### ALT, BMP, LIPID #### [facility] [address] [place] [address] Dr. Yara Chavez Cholesterol in HDL [Mass/Vol] 41 mg/dL Normal 40-60 [facility] Comment on above: Performed By: #### ALT, BMP, LIPID #### [facility] [address] [address] [address] Yara Chavez Cholesterol in LDL [Mass/Vol] 56.8 mg/dL Normal [facility] Comment on above: Performed By: #### ALT, BMP, LIPID #### [facility] [address] [address] [address] Yara Chavez Cholesterol.tota l/Cholesterol in HDL [Mass ratio] 3.0 {ratio} Normal [facility] Comment on above: Performed By: #### ALT, BMP, LIPID #### [facility] [address] [address] [address] Yara Chavez HDL NORMAL > or = 60 mg/dl - LO W CARDIOVASCULAR RISK <40 mg/dl - HIGH CARDIOVASCULAR RISK Normal [facility] Comment on above: Performed By: #### ALT, BMP, LIPID #### [facility] [address] [address] [address] Yara Chavez LDL CALC NORMAL SEE BELOW Normal [facility] Comment on above: Result Comment: <100 mg/dl OPTIMAL 100 - 129 mg/dl NEAR OR ABOVE OPTIMAL 130 - 159 mg/dl BORDERLINE HIGH 160 - 189 mg/dl HIGH >190 mg/dl VERY HIGH Performed By: #### A LT, BMP, LIPID #### [facility] [address] [address] [address] Yara Chavez Triglyceride [Mass/Vol] 131 mg/dL Normal <=150 [facility] Comment on above: Performed By: #### ALT, BMP, LIPID #### [facility] [address] [address] [address] Yara Chavez VLDL CALC 26.2 mg/dL Normal [facility] Comment on above: Performed By: #### ALT, BMP, LIPID #### [facility] [address] [place] [address] Dr. Yara Chavez MICROALBUMIN, RAND URon 07-2 mALB 1.4 mg/L Normal <=30.0 [facility] Comment on above: Performed By: #### MALBR #### [facility] [address] [address] [address] Yara Chavez PROF CHEM 8 (BAS METB)on Anion gap [Moles/Vol] 10.1 mmol/L Normal [facility] Comment on above: Performed By: #### ALT, BMP, LIPID #### [facility] [address] [address] [address] Yara Chavez Calcium [Mass/Vol] 9.0 mg/dL Normal 8.5-10.1 [facility] Comment on above: Performed By: #### ALT, BMP, LIPID #### [facility] [address] [address] [address] Yara Chavez Chloride [Moles/Vol] 105 mmol/L Normal 98-107 [facility] Comment on above: Performed By: #### ALT, BMP, LIPID #### [facility] [address] [address] [address] Yara Chavez CO2 [Moles/Vol] 31.3 mmol/L Normal 21.0-32.0 [facility] Comment on above: Performed By: #### ALT, BMP, LIPID #### [facility] [address] [address] [address] Yara Chavez Creatinine [Mass/Vol] 1.24 mg/dL Normal 0.70-1.30 [facility] Comment on above: Performed By: #### ALT, BMP, LIPID #### [facility] [address] [address] [address] Yara Chavez EGFR-AF GEORGIAN >60 Normal >=60 [facility] Comment on above: Performed By: #### ALT, BMP, LIPID #### [facility] [address] [address] [address] Yara Chavez EGFR-NON AF GEORGIAN 58 mL/min/1.73m2 Critically low >=60 [facility] Comment on above: Performed By: #### ALT, BMP, LIPID #### [facility] [address] [address] [address] Yara Chavez Glucose [Mass/Vol] 102 mg/dL Normal 74-106 [facility] Comment on above: Performed By: #### ALT, BMP, LIPID #### [facility] [address] [address] [address] Yara Chavez Potassium [Moles/Vol] 4.4 mmol/L Normal 3.5-5.1 [facility] Comment on above: Performed By: #### ALT, BMP, LIPID #### [facility] [address] [place] [address] Dr. Yara Chavez Sodium [Moles/Vol] 142 mmol/L Normal 136-145 [facility] Comment on above: Performed By: #### ALT, BMP, LIPID #### [facility] [address] [place] [address] Dr. Yara Chavez Urea nitrogen [Mass/Vol] 22.0 mg/dL Critically high 7.0-18.0 [facility] Comment on above: Performed By: #### ALT, BMP, LIPID #### [facility] [address] [place] [address] Dr. Yara Chavez Urea nitrogen/Creatin ine [Mass ratio] 17.7 mg/mg Normal [facility] Comment on above: Performed By: #### ALT, BMP, LIPID #### [facility] [address] [place] [address] Dr[facility] ALT [Catalytic activity/Vol] 48 U/L Normal 16-63 [facility] Comment on above: Performed By: #### ALT, BMP, LIPID #### [facility] [address] [place] [address] Dr. Yara Chavez GLYCOHEMOGLOBIN A1Con 2021 ADA RECOMMENDATION SEE BELOW Normal [facility] Comment on above: Result Comment: ADA RECOMMENDED LIMIT 4. 0 - 6.0 ADA THERAPEUTIC TARGET < 7.0 ACTION SUGGESTED > 7.0 Performed By: #### A 1C #### [facility] [address] [place] [address] Dr. Yara Chavez Glucose [Mass/Vol] 169 mg/dL Normal [facility] Comment on above: Performed By: #### A1C #### [facility] [address] [place] [address] Dr. Yara Chavez HbA1c (Bld) [Mass fraction] 7.5 % Critically high 4.5-6.2 [facility] Comment on above: Performed By: #### A1C #### [facility] [address] [address] [address] Yara Chavez PROF CHEM 8 (BAS METB)on Anion gap [Moles/Vol] 12.0 mmol/L Normal [facility] Comment on above: Performed By: #### BMP #### [facility] [address] [address] [address] Yara Chavez Calcium [Mass/Vol] 8.7 mg/dL Normal 8.5-10.1 [facility] Comment on above: Performed By: #### BMP #### [facility] [address] [place] [address] Dr. Yara Chavez Chloride [Moles/Vol] 103 mmol/L Normal 98-107 [facility] Comment on above: Performed By: #### BMP #### [facility] [address] [place] [address] Dr. Yara Chavez CO2 [Moles/Vol] 29.1 mmol/L Normal 21.0-32.0 [facility] Comment on above: Performed By: #### BMP #### [facility] [address] [place] [address] Dr. Yara Chavze Creatinine [Mass/Vol] 1.17 mg/dL Normal 0.70-1.30 [facility] Comment on above: Performed By: #### BMP #### [facility] [address] [place] [address] Dr. Yara Chavez EGFR-AF GEORGIAN >60 Normal >=60 [facility] Comment on above: Performed By: #### BMP #### [facility] [address] [address] [address] Yara Chavez EGFR-NON AF GEORGIAN >60 Normal >=60 [facility] Comment on above: Performed By: #### BMP #### [facility] [address] [address] [address] Yara Chavez Glucose [Mass/Vol] 144 mg/dL Critically high 74-106 [facility] Comment on above: Performed By: #### BMP #### [facility] [address] [address] [address] Yara Chavez Potassium [Moles/Vol] 4.1 mmol/L Normal 3.5-5.1 [facility] Comment on above: Performed By: #### BMP #### [facility] [address] [address] [address] Yara Chavez Sodium [Moles/Vol] 140 mmol/L Normal 136-145 [facility] Comment on above: Performed By: #### BMP #### [facility] [address] [address] [address] Yara Chavez Urea nitrogen [Mass/Vol] 18.0 mg/dL Normal 7.0-18.0 [facility] Comment on above: Performed By: #### BMP #### [facility] [address] [address] [address] Yara Chavez Urea nitrogen/Creatin ine [Mass ratio] 15.4 mg/mg Normal [facility] Comment on above: Performed By: #### BMP #### [facility] [address] [place] [address] Dr. Yara Gerber 04-02-2019 OVS Visit (SP) Office ([facility]) KIMBERLEELISA ROMO ([id number]) 1950 M Date Time Provider Department 04/02/19 11:15 AM FRANCIS HEBERT During your visit today, we recorded the following information about you: Temperature Pulse Respiration Blood pressure 98.1 degrees 72/minute 16/minute 131/69 Weight Height 80.5 kg 1.778 m Francis Hebert DO 04/03/2019 1:15 PM Signed PATIENT NAME: Lisa Lugo REFERRING PHYSICIAN: Theron Mendoza MD ([facility]) [address] [address] PRIMARY CARE PHYSICIAN: Theron Mendoza MD CHIEF COMPLAINT: Leukopenia, unspecified type (primary encounter diagnosis) Abnormal finding of blood chemistry, unspecified ASSESSMENT/PLAN: (D72.819) Leukopenia, unspecified type (primary encounter diagnosis) (R79.9) Abnormal finding of blood chemistry, unspecified Chronic neutropenia We have laboratory evidence that he has been mildly neutropenic since at least 2014. Most recent value was slightly lower than his baseline I will perform a cursory workup but likely we'll monitor him as he does not have any other cell line abnormalities and no systemic symptoms of hematologic malignancies such as fevers, sweats, chills, adenopathy, recurrent infections or otherwise. Visit (SP) Office on 04/02/19 - PROTEIN ELECTROPHORESIS W/INTERP - MONOCLONAL PROTEIN, SERUM (BLOOD) - KAPPA/SCHROEDER,FREE,SER *Canceled* - IMMUNOGLOBULINS SHANIA - LD LACTATE DEHYDRO - COMP METABOLIC PANEL - CBC + DIFF (FOR REMOTE [facility] USE) - IRON + TIBC - FERRITIN BLD - VITAMIN B12 BLOOD - FOLATE SERUM - METHYLMALONIC ACID - HEP REMOTE PANEL BL - SED [facility] Return labs today. f/u 6 mos. . ------ HISTORY OF PRESENT ILLNESS: This is a 68 year old male current outpatient medications include tramadol, aspirin, Plavix, atorvastatin, Lantus insulins, Flonase, atenolol, Protonix. Primary medical history includes type 2 diabetes, hyperlipidemia, BPH, elevated BMI, hypertension, COPD, recurrent renal stones. Primary patient of Dr. Mendoza. He was referred for persistent leukopenia and anemia. He also had transient thrombocytopenia about 1 year prior to initial referral in March [address] mendoza's notes. He denies any signs of recurrent infection or lymphadenopathy. A vitamin B-12 and ferritin were within normal limits in February 2019 We will we did have CBC from 03/17/19 which showed white blood cells of 2.8 with an absolute neutrophil count of 1.8. Hemoglobin of 12.7 with an MCV of 86.8 and a platelet count of 158. Previous CBC from February 2018 showed also slightly low white blood cell count of 3.7 with a hemoglobin of 9.5 and an MCV of 84.1 and platelet count 149. In 04/23/18 and again white blood cells were 3.2 and in October 2018 white blood cells were 3.6 but the hemoglobin had improved to 12.9 and the platelets have improved 151. Throughout 2014 through 2016 also white blood cells were a little bit low in the 3.2-4.0 range. At this time he was not anemic and his platelet counts were within normal limits. A single laboratory tests from 2013 also shows white blood cells were 3.5 at the time. April 02, 2019 Fighting a headcold for a few weeks but otherwise no issues. He has some fatigue but not too bad. No wt loss. He had a prostatitis and a pseudomonas last year. Vitals: BP 131/69 Pulse 72 Temp 36.7 ?C (98.1 ?F) (Oral) Resp 16 Ht 177.8 cm (5' 10 ) Wt 80.5 kg (177 lb 6.4 oz) SpO2 97% BMI 25.45 kg/m? Body mass index is 25.45 kg/m?. Body surface area is 1.99 meters squared. REVIEW OF SYSTEMS PHYSICAL EXAM ECOG PS: 0 NEGATIVES POSITIVES NEGATIVES POSITIVES GEN: fevers, sweats, chills. Overall feels well. GEN: Well appearing, alert, in no acute distress, appears stated age SKIN: lesions, rash, itching. SKIN: Normal color, texture, turgor, no rashes or lesions HEENT: significant headaches, changes in hearing, changes in vision, nose bleeds. ENT: No scleral icterus. NECK: Supple, no thyromegaly, no JVD. : dysuria, frequency or incontinence. LYMPH: No cervical, supraclavicular, axillary, inguinal adenopathy. RESP: dyspnea, cough, wheezing. LUNG: Clear to auscultation, no wheezing rales or rhonchi CARD: chest pain, leg swelling, palpitations. HEART: Regular. No murmurs, gallop, or rubs. No ectopy. GI: abdominal pain, nausea, vomiting, diarrhea, constipation, melena, hematochezia. ABDM: Soft. Non-tender. Non-distended. Bowel sounds normal. No masses. No hepatosplenomegaly. HEME: prolonged bleeding, bruising, adenopathy. EXT: No clubbing, cyanosis or edema. MUSC: joint pain or swelling. MUSC: No joint swelling, deformity, or tenderness. NEURO: syncope, seizures, peripheral numbness or tingling. BACK: No tenderness to palpation. No flank tenderness. MEDICATIONS: aspirin, enteric coated (ASPIRIN, ENTERIC COATED) 81 mg EC tablet Take 81 mg by mouth once daily. clopidogrel (PLAVIX) 75 mg tablet Take 75 mg by mouth once daily. atorvastatin (LIPITOR) 80 mg tablet Take 80 mg by mouth once daily. insulin glargine,hum.rec.anlog (LANTUS SOLOSTAR U-100 INSULIN SUBCUTANEOUS) Inject subcutaneously as directed. atenolol (TENORMIN) 25 mg tablet Take 25 mg by mouth once daily. pantoprazole DR (PROTONIX) 40 mg tablet Take 40 mg by mouth once daily. traMADol (ULTRAM) 50 mg tablet Take 50 mg by mouth twice daily. fluticasone (FLONASE ALLERGY RELIEF) 50 mcg/actuation nasal spray Use 2 Sprays in each nostril once daily. ALLERGIES: ALLERGIES No Known Allergies PAST MEDICAL HISTORY Diagnosis Date - Anemia - ASHD (arteriosclerotic heart disease) - COPD (chronic obstructive pulmonary disease) (HCC) - HTN (hypertension) - Hyperlipidemia - Leukopenia - T2DM (type 2 diabetes mellitus) (HCC) PAST SURGICAL HISTORY Procedure Laterality Date - COLONOSCOPY - SECOND STAGE TURP No family history on file. SOCIAL HISTORY: Social History Tobacco Use - Smoking status: Former Smoker - Smokeless tobacco: Never Used Substance Use Topics - Alcohol use: Yes Frequency: Monthly or less - Drug use: Not on file COUNSELING: I discussed with Lisa the natural history, treated course, and prognosis of Leukopenia, unspecified type (primary encounter diagnosis) Abnormal finding of blood chemistry, unspecified ; my impression as well as the rationale, logistics, risks, benefits, and alternatives to the management options noted above; and my recommendations listed below. The patient Lisa Lugo verbalized understanding and agreed with these recommendations and plan. I answered all questions satisfactorily.. Francois Hebert D.O. Medical Oncologist [facility] [place], [place] Referring Provider: THERON MENDOZA [[id number]] Allergies As of Date: 04/02/2019 (No Known Allergies) Date Reviewed: 04/02/2019 Reviewed by: Dorene Germain - Fully Assessed Reason for Visit: abdnormal lab [Other] Cmt: new patient consultation Primary Visit Diagnosis:Leukopenia, unspecified type [D72.819] Other Visit Diagnosis:Abnormal finding of blood chemistry, unspecified [R79.9] Order(s):PROTEIN ELECTROPHORESIS W/INTERP [SQSEPG] Order #: [id number] FUTURE MONOCLONAL PROTEIN, SERUM (BLOOD) [SQSERMPA] Order #: [id number] FUTURE IMMUNOGLOBULINS SHANIA [SQSERIMM] Order #: [id number] FUTURE LD LACTATE DEHYDRO [SQLD6] Order #: [id number] FUTURE COMP METABOLIC PANEL [SQCMP] Order #: [id number] FUTURE CBC + DIFF (FOR REMOTE [facility] USE) [SQRCBCDF] Order #: [id number] FUTURE IRON + TIBC [SQIRON] Order #: [id number] FUTURE FERRITIN BLD [SQFERR] Order #: [id number] FUTURE VITAMIN B12 BLOOD [SQB12] Order #: [id number] FUTURE FOLATE SERUM [SQSERFOL] Order #: [id number] FUTURE METHYLMALONIC ACID [SQMMA] Order #: [id number] FUTURE HEP REMOTE PANEL BL [SQHREMOP] Order #: [id number] FUTURE SED RATE WESTERGREN [SQWSR] Order #: [id number] FUTURE Disposition: Return labs today. f/u 6 mos. . Follow-up and Disposition History Recorded Prescriptions as of 04/02/2019 Sig: ASPIRIN 81 MG TABLET,DELAYED * Take 81 mg by mouth once kaity* CLOPIDOGREL 75 MG TABLET Take 75 mg by mouth once kaity* ATORVASTATIN 80 MG TABLET Take 80 mg by mouth once kaity* LANTUS SOLOSTAR U-100 INSULIN* Inject subcutaneously as dire* ATENOLOL 25 MG TABLET Take 25 mg by mouth once kaity* PANTOPRAZOLE 40 MG TABLET,DEL* Take 40 mg by mouth once kaity* TRAMADOL 50 MG TABLET Take 50 mg by mouth twice lluvia* FLUTICASONE PROPIONATE 50 MCG* Use 2 Sprays in each nostril * Problem List As Of Date: 04/02/2019 (None) Encounter Status:Closed by FRANCIS HEBERT DO on 04/03/19 Normal [facility] Comp Metabolic Panelon 04-02 Albumin [Mass/Vol] 4.4 g/dL Normal 3.9-4.9 [facility] ALP [Catalytic activity/Vol] 102 U/L Normal 38-113 [facility] ALT [Catalytic activity/Vol] 53 U/L Normal 10-54 [facility] Anion gap [Moles/Vol] 13 mmol/L Normal 9-18 [facility] AST [Catalytic activity/Vol] 31 U/L Normal 14-40 [facility] Bilirubin [Mass/Vol] 0.6 mg/dL Normal 0.2-1.3 [facility] Calcium [Mass/Vol] 9.6 mg/dL Normal 8.5-10.2 [facility] Chloride [Moles/Vol] 98 mmol/L Normal 97-105 [facility] CO2 [Moles/Vol] 24 mmol/L Normal 22-30 [facility] Creatinine [Mass/Vol] 0.94 mg/dL Normal 0.73-1.22 [facility] eGFR- Amer. >60 Normal [facility] GFR/1.73 sq M predicted among non-blacks MDRD (S/P/Bld) [Vol rate/Area] mL/min/{1.73_m2} Normal [facility] Comment on above: Result Comment: eGFR (Estimated GFR) Uni ts of measure: mL/min/1.73 meters squared eGFR is derived from the reexpressed MDRD Study equation using the following parameters: serum creatinine, age, gender and race. The creatinine assay has been calibrated to be traceable to [employer]. An eGFR <60 mL/min/1.73m2 for >3 months is consistent with chronic kidney disease. Refer to KDOQI guidelines for clinical interpretation. In patients with unstable renal function, e.g. those with acute kidney injury, the eGFR may not accurately reflect actual GFR. Glucose [Mass/Vol] 257 mg/dL High 74-99 [facility] Comment on above: Result Comment: The [place] Diabetes As sociation (ADA) provides guidance for cutoff values for fasting glucose and random glucose. The ADA defines fasting as no caloric intake for at least 8 hours. Fasting plasma glucose results between 100 to 125 mg/dL indicate increased risk for diabetes (prediabetes). Fasting plasma glucose results greater than or equal to 126 mg/dL meet the criteria for diagnosis of diabetes. In the absence of unequivocal hyperglycemia, results should be confirmed by repeat testing. In a patient with classic symptoms of hyperglycemia or hyperglycemic crisis, random plasma glucose results greater than or equal to 200 mg/dL meet the criteria for diagnosis of diabetes. Reference: Standards of Medical Care in Diabetes 2016, [place] [employer] Association. Diabetes Care. 2016.39(Suppl 1). Potassium [Moles/Vol] 4.8 mmol/L Normal 3.7-5.1 [facility] Protein [Mass/Vol] 7.4 g/dL Normal 6.3-8.0 [facility] Sodium [Moles/Vol] 135 mmol/L Low 136-144 [facility] Urea nitrogen [Mass/Vol] 19 mg/dL Normal 9-24 [facility] Ferritinon 04-02-2019 Ferritin [Mass/Vol] 279.0 ng/mL Normal 30.3-565.7 [facility] Comment on above: Performed By: #### WSR, B12, SERFOL, IRO N, FERR, SERIMM, HREMOP, SERMPA, SEPG, MMA #### [facility] [address] [address] Folate, Serumon 04-02-2019 Folate [Mass/Vol] ng/mL Normal >4.7 [facility] Comment on above: Result Comment: A result of > 20 ng/mL i s not necessarily indicative of a pathologic or treatable condition: it reflects a limitation of the test methodology. Assay reference range: 4.8 to 24.2 ng/mL. Suitable for detection of folate deficiency. Reference: Folate III (Folate III) [package insert V 2.0 Indian]. [facility], [place], [place]: February 2015. Performed By: #### W SR, B12, SERFOL, IRON, FERR, SERIMM, HREMOP, SERMPA, SEPG, MMA #### [place] [address] Hepatitis Remote Panelon HBsAg Negative Normal Negative [facility] Comment on above: Performed By: #### WSR, B12, SERFOL, IRO N, FERR, SERIMM, HREMOP, SERMPA, SEPG, MMA #### [place] [phone] Hep B Core Ab,Total Negative Normal Negative [facility] Comment on above: Performed By: #### WSR, B12, SERFOL, IRO N, FERR, SERIMM, HREMOP, SERMPA, SEPG, MMA #### [place] [phone] Hepatitis C Ab IA Negative Normal Negative [facility] Comment on above: Performed By: #### WSR, B12, SERFOL, IRO N, FERR, SERIMM, HREMOP, SERMPA, SEPG, MMA #### [place] [phone] HepB Surface Ab,Qual Negative Normal Negative [facility] Comment on above: Result Comment: NEGATIVE Performed By: #### W SR, B12, SERFOL, IRON, FERR, SERIMM, HREMOP, SERMPA, SEPG, MMA #### [place] [address] Immunoglobulins GAMon 2018 IgA [Mass/Vol] 323 mg/dL Normal 78-391 [facility] Comment on above: Performed By: #### WSR, B12, SERFOL, IRO N, FERR, SERIMM, HREMOP, SERMPA, SEPG, MMA #### [place] [address] IgG [Mass/Vol] 981 mg/dL Normal 717-1411 [facility] Comment on above: Performed By: #### WSR, B12, SERFOL, IRO N, FERR, SERIMM, HREMOP, SERMPA, SEPG, MMA #### [place] [id number] [place] [phone] IgM [Mass/Vol] 133 mg/dL Normal 53-334 [facility] Comment on above: Performed By: #### WSR, B12, SERFOL, IRO N, FERR, SERIMM, HREMOP, SERMPA, SEPG, MMA #### [place] [phone] Iron and TIBCon 04-02-2019 Iron [Mass/Vol] 80 ug/dL Normal 41-186 [facility] Comment on above: Performed By: #### WSR, B12, SERFOL, IRO N, FERR, SERIMM, HREMOP, SERMPA, SEPG, MMA #### [place] [phone] TIBC 247 ug/dL Normal 232-386 [facility] Comment on above: Performed By: #### WSR, B12, SERFOL, IRO N, FERR, SERIMM, HREMOP, SERMPA, SEPG, MMA #### [place] [phone] Transferrin Saturatn 32 % Normal 15-57 [facility] Comment on above: Performed By: #### WSR, B12, SERFOL, IRO N, FERR, SERIMM, HREMOP, SERMPA, SEPG, MMA #### [place] [id number] [place] [phone] LDon 04-02-2019 LD 131 U/L Low 135-225 [facility] Comment on above: Performed By: #### WSR, B12, SERFOL, IRO N, FERR, SERIMM, HREMOP, SERMPA, SEPG, MMA #### [facility] [address] [place], [place] [address] Methylmalonic Acidon 019 Methylmalonic Acid 232 nmol/L Normal 79-376 [facility] Comment on above: Result Comment: This test was developed and its performance characteristics determined by [facility]'s Sigifredo Mitchell [facility] [place] ([facility]). It has not been cleared or approved by the FDA. [facility] is regulated under CLIA as qualified to perform high complexity testing. This test is used for clinical purposes. It should not be regarded as investigational or for research. Performed By: #### W SR, B12, SERFOL, IRON, FERR, SERIMM, HREMOP, SERMPA, SEPG, MMA ####[facility], [place] [phone] Monclnl Protein, Seron 04-02 K/L Ratio, Serum 1.88 High 0.26-1.65 [facility] [place] Comment on above: Performed By: #### WSR, B12, SERFOL, IRO N, FERR, SERIMM, HREMOP, SERMPA, SEPG, MMA ####[facility] [place], [place] [phone] Burton, Free, Serum 47.1 mg/L High 3.30-19.40 [facility] Comment on above: Result Comment: Test performed by an imm unoturbidimetric assay on Optilite instrument from [facility]. Immunoglobulin free light chain assay results should be interpreted in conjunction with other tests and in correlation with clinical picture. Performed By: #### W SR, B12, SERFOL, IRON, FERR, SERIMM, HREMOP, SERMPA, SEPG, MMA ####[address] [address] [id number] [place], [place] [phone] Lambda, Free, Serum 25.0 mg/L Normal 5.7-26.3 [facility] Comment on above: Result Comment: Test performed by an imm unoturbidimetric assay on Optilite instrument from [facility]. Immunoglobulin free light chain assay results should be interpreted in conjunction with other tests and in correlation with clinical picture. Performed By: #### W SR, B12, SERFOL, IRON, FERR, SERIMM, HREMOP, SERMPA, SEPG, MMA ####[place] [phone] [place] [phone] MPA Serum IgA 336 mg/dL Normal 78-391 [facility] Comment on above: Performed By: #### WSR, B12, SERFOL, IRO N, FERR, SERIMM, HREMOP, SERMPA, SEPG, MMA ####[place] [address] [address] [phone] MPA Serum IgG 950 mg/dL Normal 717-1411 [facility] Comment on above: Performed By: #### WSR, B12, SERFOL, IRO N, FERR, SERIMM, HREMOP, SERMPA, SEPG, MMA ####[place] [address] [address] [phone] MPA Serum IgM 136 mg/dL Normal 53-334 [facility] Comment on above: Performed By: #### WSR, B12, SERFOL, IRO N, FERR, SERIMM, HREMOP, SERMPA, SEPG, MMA ####[place] [address] [address] [phone] Protein [Mass/Vol] No M protein is identified. Normal No M protein is identified . [facility] Comment on above: Performed By: #### WSR, B12, SERFOL, IRO N, FERR, SERIMM, HREMOP, SERMPA, SEPG, MMA ####[place] [phone] [place] [phone] Staff Review Reviewed by Chadd Ackerman MD ([id number]) Normal [facility] Comment on above: Performed By: #### WSR, B12, SERFOL, IRO N, FERR, SERIMM, HREMOP, SERMPA, SEPG, MMA ####[facility] [address] [place], [place] [phone] PROGRESSon 04-02-2019 PROGRESS HNO ID: [id number] Author: Francis Cherryame Service: ? Author Type: Physician Type: Progress Notes Filed: 04/03/2019 1:15 PM Note Text: PATIENT NAME: Lisa Lugo REFERRING PHYSICIAN: Theron Mendoza MD ([facility]) [address] [address] PRIMARY CARE PHYSICIAN: Theron Mendoza MD CHIEF COMPLAINT: Leukopenia, unspecified type (primary encounter diagnosis) Abnormal finding of blood chemistry, unspecified ASSESSMENT/PLAN: (D72.819) Leukopenia, unspecified type (primary encounter diagnosis) (R79.9) Abnormal finding of blood chemistry, unspecified Chronic neutropenia We have laboratory evidence that he has been mildly neutropenic since at least 2014. Most recent value was slightly lower than his baseline I will perform a cursory workup but likely we'll monitor him as he does not have any other cell line abnormalities and no systemic symptoms of hematologic malignancies such as fevers, sweats, chills, adenopathy, recurrent infections or otherwise. Visit (SP) Office on 04/02/19 - PROTEIN ELECTROPHORESIS W/INTERP - MONOCLONAL PROTEIN, SERUM (BLOOD) - KAPPA/SCHROEDER,FREE,SER *Canceled* - IMMUNOGLOBULINS SHNAIA - LD LACTATE DEHYDRO - COMP METABOLIC PANEL - CBC + DIFF (FOR REMOTE [facility] USE) - IRON + TIBC - FERRITIN BLD - VITAMIN B12 BLOOD - FOLATE SERUM - METHYLMALONIC ACID - HEP REMOTE PANEL BL - [facility] Return labs today. f/u 6 mos. . --------- HISTORY OF PRESENT ILLNESS: This is a 68 year old male current outpatient medications include tramadol, aspirin, Plavix, atorvastatin, Lantus insulins, Flonase, atenolol, Protonix. Primary medical history includes type 2 diabetes, hyperlipidemia, BPH, elevated BMI, hypertension, COPD, recurrent renal stones. Primary patient of Dr. Mendoza. He was referred for persistent leukopenia and anemia. He also had transient thrombocytopenia about 1 year prior to initial referral in March [address] mendoza's notes. He denies any signs of recurrent infection or lymphadenopathy. A vitamin B-12 and ferritin were within normal limits in February 2019 We will we did have CBC from 03/17/19 which showed white blood cells of 2.8 with an absolute neutrophil count of 1.8. Hemoglobin of 12.7 with an MCV of 86.8 and a platelet count of 158. Previous CBC from February 2018 showed also slightly low white blood cell count of 3.7 with a hemoglobin of 9.5 and an MCV of 84.1 and platelet count 149. In 04/23/18 and again white blood cells were 3.2 and in October 2018 white blood cells were 3.6 but the hemoglobin had improved to 12.9 and the platelets have improved 151. Throughout 2014 through 2016 also white blood cells were a little bit low in the 3.2-4.0 range. At this time he was not anemic and his platelet counts were within normal limits. A single laboratory tests from 2013 also shows white blood cells were 3.5 at the time. April 02, 2019 Fighting a headcold for a few weeks but otherwise no issues. He has some fatigue but not too bad. No wt loss. He had a prostatitis and a pseudomonas last year. Vitals: BP 131/69 Pulse 72 Temp 36.7 ?C (98.1 ?F) (Oral) Resp 16 Ht 177.8 cm (5' 10 ) Wt 80.5 kg (177 lb 6.4 oz) SpO2 97% BMI 25.45 kg/m? Body mass index is 25.45 kg/m?. Body surface area is 1.99 meters squared. REVIEW OF SYSTEMS PHYSICAL EXAM ECOG PS: 0 NEGATIVES POSITIVES NEGATIVES POSITIVES GEN: fevers, sweats, chills. Overall feels well. GEN: Well appearing, alert, in no acute distress, appears stated age SKIN: lesions, rash, itching. SKIN: Normal color, texture, turgor, no rashes or lesions HEENT: significant headaches, changes in hearing, changes in vision, nose bleeds. ENT: No scleral icterus. NECK: Supple, no thyromegaly, no JVD. : dysuria, frequency or incontinence. LYMPH: No cervical, supraclavicular, axillary, inguinal adenopathy. RESP: dyspnea, cough, wheezing. LUNG: Clear to auscultation, no wheezing rales or rhonchi CARD: chest pain, leg swelling, palpitations. HEART: Regular. No murmurs, gallop, or rubs. No ectopy. GI: abdominal pain, nausea, vomiting, diarrhea, constipation, melena, hematochezia. ABDM: Soft. Non-tender. Non-distended. Bowel sounds normal. No masses. No hepatosplenomegaly. HEME: prolonged bleeding, bruising, adenopathy. EXT: No clubbing, cyanosis or edema. MUSC: joint pain or swelling. MUSC: No joint swelling, deformity, or tenderness. NEURO: syncope, seizures, peripheral numbness or tingling. BACK: No tenderness to palpation. No flank tenderness. MEDICATIONS: aspirin, enteric coated (ASPIRIN, ENTERIC COATED) 81 mg EC tablet Take 81 mg by mouth once daily. clopidogrel (PLAVIX) 75 mg tablet Take 75 mg by mouth once daily. atorvastatin (LIPITOR) 80 mg tablet Take 80 mg by mouth once daily. insulin glargine,hum.rec.anlog (LANTUS SOLOSTAR U-100 INSULIN SUBCUTANEOUS) Inject subcutaneously as directed. atenolol (TENORMIN) 25 mg tablet Take 25 mg by mouth once daily. pantoprazole DR (PROTONIX) 40 mg tablet Take 40 mg by mouth once daily. traMADol (ULTRAM) 50 mg tablet Take 50 mg by mouth twice daily. fluticasone (FLONASE ALLERGY RELIEF) 50 mcg/actuation nasal spray Use 2 Sprays in each nostril once daily. ALLERGIES: ALLERGIES No Known Allergies PAST MEDICAL HISTORY Diagnosis Date - Anemia - ASHD (arteriosclerotic heart disease) - COPD (chronic obstructive pulmonary disease) (HCC) - HTN (hypertension) - Hyperlipidemia - Leukopenia - T2DM (type 2 diabetes mellitus) (HCC) PAST SURGICAL HISTORY Procedure Laterality Date - COLONOSCOPY - SECOND STAGE TURP No family history on file. SOCIAL HISTORY: Social History Tobacco Use - Smoking status: Former Smoker - Smokeless tobacco: Never Used Substance Use Topics - Alcohol use: Yes Frequency: Monthly or less - Drug use: Not on file COUNSELING: I discussed with Lisa the natural history, treated course, and prognosis of Leukopenia, unspecified type (primary encounter diagnosis) Abnormal finding of blood chemistry, unspecified ; my impression as well as the rationale, logistics, risks, benefits, and alternatives to the management options noted above; and my recommendations listed below. The patient Lisa Lugo verbalized understanding and agreed with these recommendations and plan. I answered all questions satisfactorily.. Francois Hebert D.O. Medical Oncologist [place], [place] Normal [facility] Protein Electrophor.on 04-02 Albumin [Mass/Vol] 3.79 g/dL Normal 3.37-4.23 [facility] Comment on above: Performed By: #### WSR, B12, SERFOL, IRO N, FERR, SERIMM, HREMOP, SERMPA, SEPG, MMA ####[address] [place], [place] [phone] Alpha 1 Globulin 0.31 gm/dL Normal 0.18-0.31 [facility] Comment on above: Performed By: #### WSR, B12, SERFOL, IRO N, FERR, SERIMM, HREMOP, SERMPA, SEPG, MMA ####[facility] [place] [address] [phone] Alpha 2 Globulin 0.96 gm/dL Normal 0.52-0.97 [facility] [place] Comment on above: Performed By: #### WSR, B12, SERFOL, IRO N, FERR, SERIMM, HREMOP, SERMPA, SEPG, MMA ####[place] [address] [place], [place] [phone] Beta Globulin 1.17 gm/dL Normal 0.84-1.36 [facility] Comment on above: Performed By: #### WSR, B12, SERFOL, IRO N, FERR, SERIMM, HREMOP, SERMPA, SEPG, MMA ####[place] [address] [address] [phone] Gamma Globulin 0.97 gm/dL Normal 0.70-1.44 [facility] Comment on above: Performed By: #### WSR, B12, SERFOL, IRO N, FERR, SERIMM, HREMOP, SERMPA, SEPG, MMA ####[place] [address] [address] [phone] Interpretation SEE COMMENT Normal [facility] Comment on above: Result Comment: No definitive M protein is identified on protein electrophoresis. Performed By: #### W SR, B12, SERFOL, IRON, FERR, SERIMM, HREMOP, SERMPA, SEPG, MMA ####[address] [phone] M Guy Concentratn 0.00 gm/dL Normal 0.00 [facility] Comment on above: Performed By: #### WSR, B12, SERFOL, IRO N, FERR, SERIMM, HREMOP, SERMPA, SEPG, MMA ####[place] [phone] Protein [Mass/Vol] 7.2 g/dL Normal 6.0-8.4 [facility] Comment on above: Performed By: #### WSR, B12, SERFOL, IRO N, FERR, SERIMM, HREMOP, SERMPA, SEPG, MMA ####[place] [address] [address] [place] [phone] Protein [Mass/Vol] N/A Normal [facility] Comment on above: Performed By: #### WSR, B12, SERFOL, IRO N, FERR, SERIMM, HREMOP, SERMPA, SEPG, MMA ####[place] [address] [address] [place] [phone] SPE Staff Review Reviewed by Chadd Ackerman MD ([id number]) Normal [facility] Comment on above: Performed By: #### WSR, B12, SERFOL, IRO N, FERR, SERIMM, HREMOP, SERMPA, SEPG, MMA ####[facility] [address] [place], [place] [phone] Remote CBCDIF (for [facility] use o nly)on 04-02-2019 Abs Baso <0.03 Normal 0.00-0.10 [facility] Abs [place] 0.48 k/uL Normal 0.00-0.86 [facility] Abs Neut 4.30 k/uL Normal 1.45-7.50 [facility] Basophils/100 WBC (Bld) 0.2 % Normal [facility] Eosinophils (Bld) [#/Vol] 0.04 10*3/uL Normal 0.00-0.45 [facility] Eosinophils/100 WBC (Bld) 0.7 % Normal [facility] Erythrocyte distribution width (RBC) [Ratio] 13.9 % Normal 11.5-15.0 [facility] Hematocrit (Bld) [Volume fraction] 39.6 % Normal 39.0-51.0 [facility] Hemoglobin (Bld) [Mass/Vol] 12.6 g/dL Low 13.0-17.0 [facility] Lymphocytes (Bld) [#/Vol] 0.84 10*3/uL Low 1.00-4.00 [facility] Lymphocytes/100 WBC (Bld) 14.8 % Normal [facility] MCH (RBC) [Entitic mass] 27.4 pG Normal 26.0-34.0 [facility] MCHC (RBC) [Mass/Vol] 31.8 g/dL Normal 30.5-36.0 [facility] MCV (RBC) [Entitic vol] 86.1 fL Normal 80.0-100.0 [facility] Monocytes/100 WBC (Bld) 8.5 % Normal [facility] Neutrophils/100 WBC (Bld) 75.8 % Normal [facility] Platelet mean volume (Bld) [Entitic vol] 9.7 fL Normal 9.0-12.7 [facility] Platelets (Bld) [#/Vol] 243 10*3/uL Normal 150-400 [facility] RBC (Bld) [#/Vol] 4.60 10*6/uL Normal 4.20-6.00 [facility] WBC (Bld) [#/Vol] 5.67 10*3/uL Normal 3.70-11.00 [facility] Sed Rate Westergrenon 2018 Sed Rate Westergren 41 mm/hr High 0-15 [facility] Comment on above: Performed By: #### WSR, B12, SERFOL, IRO N, FERR, SERIMM, HREMOP, SERMPA, SEPG, MMA #### [facility] [address] [address] Vitamin B12on 04-02-2019 Cobalamin (Vitamin B12) [Mass/Vol] 595 pg/mL Normal 232-1245 [facility] Comment on above: Performed By: #### WSR, B12, SERFOL, IRO N, FERR, SERIMM, HREMOP, SERMPA, SEPG, MMA #### [facility] [address] [address] Cardiovascular Lab Reporton 04-26-2017 Cardiovascular Lab Report [facility] Patient Name: Lisa Lugo [facility] MR #: [id number] Physician: Jenny Parsons M.D.Medicine Service Date: 04/25/2017Division of Birthdate: 2Cardiology Room #: 3CD [id number] [address] Fax Cardiovascular Laboratory ReportINDICATION: Mr. Lisa Lugo is a 66-year-old man, known to havecoronary artery disease status post multiple stenting procedures in [facility]. Recently, he presented with transient ST-segment elevation in thesetting of ongoing chest pain. He underwent cardiac catheterization anddrug-eluting stenting of the distal right coronary artery de rachel stenosisas well as drug-eluting stenting of the proximal right coronary arteryin-stent restenosis. At that time, he was found to have cwzh-jqhahcg-bggtc restenosis in the mid LAD. He is brought today for stagedpercutaneous intervention to the LAD.PROCEDURES:1. Successful rotational atherectomy and balloon angioplasty of 80% mid LAD in-stent restenoses with reduction of the stenosis to 5%.2. Administration of intracoronary nitroglycerin.3. Limited right femoral angiography.DESCRIPTION OF PROCEDURE: Procedure was explained to the patient withrisks and benefits. He signed informed consent. He was brought to cathlab in a fasting state. The right groin area was prepped and draped inusual fashion. Using micropuncture technique and ultrasound guidance, theright common femoral artery was accessed. The inner cannula of themicropuncture was advanced. Limited femoral angiography was performedfollowed by upsizing to a 6-Spanish x 11 cm sheath. Heparin wasadministered intravenously and therapeutic ACT confirmed during theprocedure. A 6-Spanish XB 3.5 guiding catheter was advanced and used toengage left main coronary ostium. Initial setup angiography was performed.An exchange length Prowater wire was advanced into the distal LAD. AFinecross catheter was used to exchange that wire to a Rota Floppy wire. A1.25 mm rotational atherectomy roland was advanced and platforming wasperformed outside of the guiding catheter at 160,000 revolutions perminute. The rotational atherectomy bur was advanced into the mid LAD andmultiple passes were performed in the mid LAD in-stent restenosis. Therotational atherectomy roland was then retracted. The Finecross catheter wasthen used to exchange the Rota Floppy wire to the Prowater wire.Angiography was performed. NC Quantum Wayne 2.5 x 15 mm noncompliantballoon was then advanced into the mid LAD and used to perform inflationsat 20 atmospheres throughout the length of the lesion. The balloon wasretracted, angiography was performed. Intracoronary nitroglycerin 50 mcgwas administered. The wire was removed. Final angiography was performedshowing reduction of the stenosis to 5%, no evidence of dissection orperforation and VILMA-3 flow in the LAD and diagonal branch. The guidingcatheter was removed. The procedure was concluded. The patient was loadedwith 300 mg of Plavix as he was maintained previously on aspirin andPlavix. He was transferred to the Cardiovascular Recovery Area. Theaccess sheath will be removed and manual compression will be applied forhemostasis when the ACT is subtherapeutic. He will be admitted forovernight observation.TOTAL FLUORO TIME: 11.05 minutes. Total air kerma 871 mGy. Totalcontrast volume 80 mL.HEMODYNAMICS: AO 105/60, mean 78.CORONARY ANGIOGRAPHY:The left anterior descending artery is a large vessel that tapers distally.It has a previously placed stent in the mid segment right after the seconddiagonal branch. There was at baseline 80% diffuse in-stent restenosis.This was reduced to 5% by rotational atherectomy and balloon angioplasty.The distal LAD has mild diffuse disease. The second diagonal branch hasmild stenosis at the ostium.RECOMMENDATIONS:1. Continue aspirin and statin therapy for life.2. Plavix therapy for a minimum of 1 year after recent ACS presentation and drug-eluting stenting and current percutaneous intervention procedure, preferably longer given his aggressive disease.3. Follow up in Cardiology Clinic.Electronically Signed by:Jenny Coppola M.D. 05/04/2017 03:22 A Jenny Coppola M.D.Date Dict: 04/25/2017/09:47 A/Jenny Coppola M.D.Date Trans: 04/26/2017 02:28 Nisha/Kehinde_JN:[id number]: Theron Mnedoza D.O. [address] [place] [id number] Normal [facility] POC GLUCOSE LABon 04-26-2017 Glucose mass conc 99 mg/dL Normal 70-100 [facility] Comment on above: Performed By: #### [id number] ####[address] [address] [place] [address], [facility] CBC COMPLETE BLOOD COUNTon 1 06-26-2016 Erythrocyte distribution width Auto Ratio (RBC) 14.3 % Normal 11.5-16.9 [facility] Comment on above: Order Comment: Yes: Add to Previous draw if able Performed By: #### 5 [id number] ####[facility] Erythrocytes (RBC) 4.16 mill/mm3 Low 4.30-5.90 [facility] Comment on above: Order Comment: Yes: Add to Previous draw if able Performed By: #### 5 [id number] ####[facility] [facility].[address] Hematocrit (HCT) 34.8 % Low 39.0-55.0 [facility] Comment on above: Order Comment: Yes: Add to Previous draw if able Performed By: #### 5 [id number] ####[facility] [facility].[address] Hemoglobin mass conc (Bld) 11.8 g/dL Low 13.9-16.3 [facility] Comment on above: Order Comment: Yes: Add to Previous draw if able Performed By: #### 5 [id number] ####[facility] [facility].[address] MCH 28.2 pg Normal 24.0-32.0 [facility] Comment on above: Order Comment: Yes: Add to Previous draw if able Performed By: #### 5 [id number] ####[facility] [facility].[address] MCHC mass conc (RBC) 33.8 g/dL Normal 32.0-36.0 [facility] Comment on above: Order Comment: Yes: Add to Previous draw if able Performed By: #### 5 [id number] ####[facility] [place] [address] MCV 83.6 fL Normal 80.0-100.0 [facility] Comment on above: Order Comment: Yes: Add to Previous draw if able Performed By: #### 5 [id number] ####[facility] [facility] [place] [address], [facility] PLAT CNT 198 Thou/mm3 Normal 100-400 [facility] Comment on above: Order Comment: Yes: Add to Previous draw if able Performed By: #### 5 0608 ####[facility] [facility].[address] WBC (Leukocytes) 3.9 Thou/mm3 Low 4.0-10.0 [facility] Comment on above: Order Comment: Yes: Add to Previous draw if able Performed By: #### 5 0608 ####[facility] [facility].[address] POC GLUCOSE LABon 04-25-2017 Glucose mass conc 232 mg/dL High 70-100 [facility] Comment on above: Performed By: #### [id number] ####[facility] [facility].[address] Glucose mass conc 281 mg/dL High 70-100 [facility] Comment on above: Performed By: #### [id number] ####[address] [facility].[address] Discharge Summaryon 04-20-20 Discharge Summary MR#: [id number] [facility] Admitted: 04/15/2017 Discharged: 04/16/2017 Date of : 1950 Physician: Mo Sanchez M.D. DISCHARGE SUMMARYDISCHARGING SERVICE: CCU.PRIMARY DIAGNOSIS: Unstable angina, status post PCI with 2 drug-elutingstents placed.SECONDARY DIAGNOSES:1. History of coronary artery disease with history of multiple stents.2. Insulin-dependent diabetes mellitus, type 2.3. Hypertension.CONSULTS: None.PROCEDURES: Left heart catheterization demonstrating severe 2-vesseldisease, 99% stenosis in the distal RCA, and 70% in-stent restenosis in theproximal RCA. For both of these lesions, the patient underwent successfulballoon dilatation and drug-eluting stenting. Other findings include apatent mid RCA stent, 50% to 60% stenosis in the ostium of the right-sidedPDA, patent previously placed mid and distal circumflex stents and 60%stenosis in the mid circumflex.HOSPITAL COURSE: A 66-year-old male with CAD history, requiring stentingin the past, presented to [facility] initially with complaints ofrecurrent chest pain at rest. Initial EKG showed minor ST-segment elevationin the inferior leads, which resolved after administration of IV heparinand nitroglycerin. [facility] and intervention. Heunderwent left heart catheterization with successful balloon dilatation andstenting of 2 lesions. The patient recovered well postprocedure with nofurther recurrence of chest pain. Right femoral access site healed well.DISCHARGE CONDITION: Stable.DISCHARGE DISPOSITION: Home.DISCHARGE MEDICATIONS: Aspirin 81 mg daily, atenolol 25 mg daily, Tbwjyjqq227 mg daily, Clopidogrel 75 mg daily, Lantus 45 units in the evening,Lipitor 40 mg daily, pantoprazole 40 mg daily.Electronically Signed by:Mo Sanchez M.D. 05/14/2017 12:05 P ____Mo Sanchez M.D. I personally saw this patient on the day of the encounter, performed thekey portion(s) of the service and participated in the management andconfirm the resident's documentation. Please note there may be anadditional personal documentation from me. Date Dict: 04/19/2017/06:17 Malick/ANIVAL Pinzonate Trans: 04/20/2017 07:36 A/samariaoDN_JN:[id number]: Theron Menodza D.O. [address] [place] [phone] Tino Gunderson M.D. [address] [facility] [address] Normal [facility] BASIC METABOLIC PANELon 12-1 Calcium 9.0 mg/dL Normal 8.6-10.3 [facility] Comment on above: Order Comment: No: Do not add to previou s draw Performed By: #### 1 69, [id number] ####[facility] [place] [address], [facility] Chloride 104 mmol/L Normal 98-107 [facility] Comment on above: Order Comment: No: Do not add to previou s draw Performed By: #### 1 69, 316[address] ####[facility] [place] [address], [facility] CO2 24 mmol/L Normal 21-31 [facility] Comment on above: Order Comment: No: Do not add to previou s draw Performed By: #### 1 69, [id number] ####[facility] [place] [address], [facility] Creatinine 0.94 mg/dL Normal 0.70-1.30 [facility] Comment on above: Order Comment: No: Do not add to previou s draw Performed By: #### 1 69, [address] ####[facility] eGFR (black) mL/min/{1.73_m2} Normal >60 [facility] Comment on above: Order Comment: No: Do not add to previou s draw Performed By: #### 1 69, [address] ####[facility] [place] [address], [facility] eGFR (non-black) mL/min/{1.73_m2} Normal >60 [facility] Comment on above: Order Comment: No: Do not add to previou s draw Performed By: #### 1 69, 994[address] ####[facility] [place] [address], [facility] Glucose mass conc 182 mg/dL High 70-100 [facility] Comment on above: Order Comment: No: Do not add to previou s draw Performed By: #### 1 69, 62539 ####[facility] [place] [address], [facility] Potassium molar conc 3.9 mmol/L Normal 3.5-5.1 [facility] Comment on above: Order Comment: No: Do not add to previou s draw Performed By: #### 1 69, 615[address] ####[facility] Sodium 138 mmol/L Normal 136-145 [facility] Comment on above: Order Comment: No: Do not add to previou s draw Performed By: #### 1 69, 00959 ####[facility] Urea nitrogen 18 mg/dL Normal 7-25 [facility] Comment on above: Order Comment: No: Do not add to previou s draw Performed By: #### 1 69, 20561 ####[facility] CBC COMPLETE BLOOD COUNTon 06-17-2016 Erythrocyte distribution width Auto Ratio (RBC) 14.7 % Normal 11.5-16.9 [facility] Comment on above: Order Comment: No: Do not add to previou s draw Performed By: #### 5 0608 ####[facility] Erythrocytes (RBC) 4.37 mill/mm3 Normal 4.30-5.90 [facility] Comment on above: Order Comment: No: Do not add to previou s draw Performed By: #### 5 0608 ####[facility] [place] [address], [facility] Hematocrit (HCT) 36.5 % Low 39.0-55.0 [facility] Comment on above: Order Comment: No: Do not add to previou s draw Performed By: #### 5 0608 ####[facility] Hemoglobin mass conc (Bld) 12.3 g/dL Low 13.9-16.3 [facility] Comment on above: Order Comment: No: Do not add to previou s draw Performed By: #### 5 0608 ####[facility] MCH 28.0 pg Normal 24.0-32.0 [facility] Comment on above: Order Comment: No: Do not add to previou s draw Performed By: #### 5 0608 ####[facility] MCHC mass conc (RBC) 33.5 g/dL Normal 32.0-36.0 [facility] Comment on above: Order Comment: No: Do not add to previou s draw Performed By: #### 5 0608 ####[facility] [facility].[address] MCV 83.5 fL Normal 80.0-100.0 [facility] Comment on above: Order Comment: No: Do not add to previou s draw Performed By: #### 5 0608 ####[facility] [facility] [address], [facility] PLAT CNT 167 Thou/mm3 Normal 100-400 [facility] Comment on above: Order Comment: No: Do not add to previou s draw Performed By: #### 5 0608 ####[facility] [facility].[address] WBC (Leukocytes) 4.7 Thou/mm3 Normal 4.0-10.0 [facility] Comment on above: Order Comment: No: Do not add to previou s draw Performed By: #### 5 0608 ####[facility] [place], [place] [address]RUST Cardiovascular Lab Reporton 04-16-2017 Cardiovascular Lab Report [facility] Patient Name: Lisa Lugo [facility] MR #: [id number] Physician: Jenny Parsons M.D.Medicine Service Date: 04/15/2017Division of Birthdate: 2Cardiology Room #: [id number] [facility]Services[facility] [place], [place] [address]Ywpqf Fax Cardiovascular Laboratory ReportINDICATION: Lisa Lugo is a 66-year-old man, known to have coronaryartery disease, status post multiple stenting procedures in the past, [facility] recurrent chest pain at rest. Heinitially had minor ST elevations in the inferior leads that resolved afteradministration of intravenous heparin and nitroglycerin. Because ofrecurrent chest pain, he was transferred emergently to our laboratory animal care veterinarian fordiagnostic angiography and intervention.PROCEDURE:1. Bilateral selective coronary angiography.2. Successful balloon dilatation and drug-eluting stenting of 99% stenosis in the distal right coronary artery, reduced to 0% by deployment of a PROMUS Premier 2.5 x 16 mm drug-eluting stent post dilated to 2.5 mm at high pressures.3. Successful balloon dilatation and drug-eluting stenting of 70% in-stent restenosis in the proximal right coronary artery using a PROMUS Premier 3.0 x 28 mm drug-eluting stent post dilated to 3.25 mm at high pressures.4. Administration of intracoronary nitroglycerin.5. Limited right femoral angiography.6. Deployment of vascular access closure device.METHODS: Procedure was explained to the patient with risks and benefits.He agreed to the procedure. An informed consent was not signed due to theemergency nature of the procedure. The patient was admitted to our cathlab, transferred via EMS services. He was placed on the laboratory animal care veterinarian table.Both groin areas were prepped and draped in usual fashion. Usingmicropuncture technique, access in the right common femoral artery wasobtained and the inner cannula was advanced. Limited femoral angiographywas performed followed by upsizing to a 6-Spanish x 11 cm sheath. Bilateralselective coronary angiography was then performed using 6-Spanish JL4 andJR4 diagnostic catheters.Heparin was administered intravenously and therapeutic ACT confirmed duringthe procedure. A 6-Spanish JR4 guiding catheter was advanced and used toengage the right coronary ostium. A Prowater wire was advanced into thedistal RCA. Balloon dilatation in the distal RCA was performed usingEmerge 2.0 x 12 mm balloon and inflated at 12 atmospheres. Angiographyrevealed suboptimal results. This was treated using a PROMUS Premier 2.5 x16 mm drug-eluting stent, deployed at 11 atmospheres and post dilated usingNC Quantum Wayne 2.5 x 8 mm noncompliant balloon inflated at 20 atmospheresthroughout the length of the stent. Angiography after administration ofintracoronary nitroglycerin showed excellent result with reduction of thestenosis to 0%. No evidence of dissection or perforation. The guidingwire was removed. Angiography of the right coronary artery was performedin multiple views. This showed evidence of a 70% proximal stenosis. Thewire was advanced into the distal RCA and balloon angioplasty in theproximal RCA in-stent restenosis was performed using NC Quantum Wayne 3.0 x8 mm noncompliant balloon inflated at 14 atmospheres followed by additionaldilatation using NC Quantum Wayne 3.0 x 12 mm noncompliant balloon inflatedat 20 atmospheres. Angiography after balloon dilatation showed evidence ofa filling defect just distal to the site of balloon dilatation. This wasthought to be possibly a thrombus related to the balloon dilatation;therefore, a suction thrombectomy Priority ONE catheter was advanced andused to perform multiple passes of suction thrombectomy. Angiographyrevealed near resolution of the filling defect. It was decided to proceedwith stenting. A PROMUS Premier 3.0 x 28 mm drug-eluting stent wasadvanced and deployed across the area of the proximal to mid stenosis at 14atmospheres and post dilated using NC Quantum Wayne 3.25 x 20 mmnoncompliant balloon inflated at 20 atmospheres throughout the length ofthe stent. Final angiography after administration of intracoronarynitroglycerin showed excellent result with reduction of the stenosis to 0%.No evidence of dissection or perforation. The guiding catheter wasremoved. The procedure was concluded. The right femoral arteriotomy wasmanaged with a 6-Spanish Perclose device with good hemostasis. The patientwas loaded with 600 mg of Plavix at the end of the procedure. He will beadmitted for further management.TOTAL FLUORO TIME: 17.41 minutes.TOTAL AIR KARMA: 1789 mGy.TOTAL CONTRAST VOLUME: 190 mL.HEMODYNAMICS: AO 122/65, mean 88.CORONARY ANGIOGRAPHY: This is a right dominant circulation.Left main: This arises from left coronary cusp. It bifurcates into leftanterior descending and circumflex vessels. Left main is free of disease.Left anterior descending: This is a large vessel, it has a previouslyplaced stent in the mid segment, that stent has 70% in-stent restenosisjust at the bifurcation of a second diagonal branch, which itself appearedto be free of disease.Circumflex vessel: This is large and nondominant vessel. It has apreviously placed stent in the mid segment, that stent is patent. Thestent location is right after the first obtuse marginal branch. Beyondthat stent, there is an area of diffuse 60% stenosis and beyond that area,there is a previously placed stent, that stent is widely patent. It jailsa second large obtuse marginal branch. The ostium of that obtuse marginalbranch appears to have 50% to 60% stenosis.Right coronary artery: This arises from the right coronary cusp. It is alarge and dominant vessel. It has a previously placed stent in theproximal segment. There is 70% stenosis in the proximal edge of the stentrepresenting in-stent restenosis. This was reduced to 0% by balloonangioplasty and drug-eluting stenting as above. The mid segment of the RCAhas a previously placed stent, that stent is widely patent. Distally,there is a 99% hazy stenosis, which was reduced to 0% by balloonangioplasty and drug-eluting stenting as above. More distally, the RCAbifurcates into PDA and PLV branches. The PLV branch has mild diffusedisease. The PDA branch has 50% stenosis at the ostium, but no obstructivelesions.LIMITED RIGHT FEMORAL ANGIOGRAPHY:This showed access to be in the right common femoral artery with noobstructive lesions noted in the femoral artery or its proximal branches.SUMMARY OF THE FINDINGS:1. Severe 2-vessel coronary artery disease.2. 70% in-stent restenosis in the proximal right coronary artery, reduced to 0% by balloon angioplasty and drug-eluting stenting with a PROMUS Premier stent.3. Patent mid right coronary artery stent.4. 99% stenosis in the distal RCA, reduced to 0% by drug-eluting stenting with a PROMUS Premier stent.5. 50% to 60% stenosis in the ostium of the right-sided PDA.6. 70% in-stent restenosis in the mid LAD.7. Patent previously placed mid and distal circumflex stents and 60% stenosis in the mid circumflex, and 50-60% stenosis in the ostium of a second obtuse marginal branch.RECOMMENDATIONS:1. Continue aspirin therapy for life.2. Statin therapy for life (the patient's current statin therapy will be intensified from atorvastatin 40 mg daily to 80 mg daily).3. Maximum control of risk factors.4. Plavix therapy for minimum of 1 year after drug-eluting stenting, preferably long-term given his aggressive disease.5. The patient will come back for a staged intervention of the mid LAD in-stent restenosis at a later date.Electronically Signed by:Jenny Coppola M.D. 04/21/2017 01:07 P Jenny Coppola M.D.Date Dict: 04/15/2017/06:14 P/Jenny Coppola M.D.Date Trans: 04/16/2017 07:04 A/OctaviaN_JN:[id number]: Theron Mendoza D.O. [address] [place] [phone] Tino Gunderson M.D. [address] [place] [address] Normal [facility] MAGNESIUM BLOODon 04-16-2017 Magnesium 1.9 mg/dL Normal 1.9-2.7 [facility] Comment on above: Order Comment: No: Do not add to previou s draw Performed By: #### 1 [id number], [id number] ####[facility] [place] [address], [facility] POC GLUCOSE LABon 04-16-2017 Glucose mass conc 173 mg/dL High 70-100 [facility] Comment on above: Performed By: #### [id number] ####[facility] [place], [place] [id number] [place] [address] Glucose mass conc 228 mg/dL High 70-100 [facility] Comment on above: Performed By: #### [id number] ####[facility] [place], [place] [address] POC GLUCOSE LABon 04-15-2017 Glucose mass conc 214 mg/dL High 70-100 [facility] Comment on above: Performed By: #### [id number] ####[facility] Vital Signs Date Time Vital Sign Value Performing Clinician Facility 04-02-2023 09:30-0500 Body height 177.8 cm Theron Ball Other [email or web address] Other 04-02-2023 09:30-0500 Body mass index (BMI) [Ratio] 25.97 kg/m2 Theorn Ball Other [facility] Other 04-02-2023 09:30-0500 Body weight 82.1 kg Theron Ball Other [email or web address] Other 04-02-2023 09:30-0500 Diastolic blood pressure 85 mm[Hg] Theron Ball Other [facility] Other 04-02-2023 09:30-0500 Respiratory rate 12 /min Theron Ball Other [email or web address] Other 04-02-2023 09:30-0500 Systolic blood pressure 135 mm[Hg] Theron Ball Other [facility] Other 11-01-2022 10:00-0400 Body height 177.8 cm Theron Ball Other [facility] Other 11-01-2022 10:00-0400 Body mass index (BMI) [Ratio] 25.77 kg/m2 Theron Ball Other [facility] Other 11-01-2022 10:00-0400 Body weight 81.47 kg Theron Ball Other [facility] Other 11-01-2022 10:00-0400 Diastolic blood pressure 71 mm[Hg] Theron Ball Other [facility] Other 11-01-2022 10:00-0400 Respiratory rate 12 /min Theron Ball Other [facility] Other 11-01-2022 10:00-0400 Systolic blood pressure 124 mm[Hg] Theron Ball Other [facility] Other 10-03-2022 13:45-0400 Body height 177.8 cm Theron Ball Other [email or web address] Other 10-03-2022 13:45-0400 Body mass index (BMI) [Ratio] 26.23 kg/m2 Theron Ball Other [facility] Other 10-03-2022 13:45-0400 Body weight 82.92 kg Theron Ball Other [facility] Other 10-03-2022 13:45-0400 Diastolic blood pressure 76 mm[Hg] Theron Ball Other [facility] Other 10-03-2022 13:45-0400 Respiratory rate 12 /min Theron Ball Other [facility] Other 10-03-2022 13:45-0400 Systolic blood pressure 160 mm[Hg] Theron Ball Other [facility] Other 11-20-2021 12:31-0400 Blood Pressure Location Tom ARGUETA [facility] 11-20-2021 12:31-0400 Diastolic blood pressure 80 mm[Hg] Tom ARGUETA [facility] 11-20-2021 12:31-0400 Heart rate 74 /min Tom ARGUETA [facility] 11-20-2021 12:31-0400 Respiratory rate 16 /min Tom ARGUETA [facility] 11-20-2021 12:31-0400 Systolic blood pressure 133 mm[Hg] Tom ARGUETA [facility] Encounters Encounter Date Encounter Type Care Provider Facility Start: 09-20-2023 ambulatory Tom ARGUETA Facili ty:[facility] Start: 04-03-2023 End: 04-03-2023 ambulatory Theron Mendoza Other [email or web address] Other Start: 04-03-2023 Telephone encounter Theron Mendoza [facility] Start: 04-02-2023 End: 04-02-2023 ambulatory Theron Guido Other [email or web address] Other Start: 04-02-2023 Office outpatient vi sit 25 minutes Theron Mendoza [facility] Start: 04-01-2023 End: 04-01-2023 ambulatory Theron Guido Other [email or web address] Other Start: 04-01-2023 Telephone encounter Theron Mendoza [facility] Start: 01-07-2023 End: 01-07-2023 ambulatory Theron Mendoza Other [email or web address] Other Start: 01-07-2023 Telephone encounter Theron Mendoza [facility] Start: 11-01-2022 End: 11-01-2022 ambulatory Theron Mendoza Other [email or web address] Other Start: 11-01-2022 Patient encounter procedure Theron Mendoza [facility] Start: 10-03-2022 End: 10-03-2022 ambulatory Theron Mendoza Other [email or web address] Other Start: 10-03-2022 Office outpatient vi sit 15 minutes Theron Mendoza [facility] Start: 10-03-2022 Telephone encounter Theron Mendoza [facility] Start: 09-17-2022 End: 09-18-2022 ambulatory Tom ARGUETA Facility:[facility] Start: 04-30-[address] THERON MENDOZA Facili ty:[facility] Start: 03-29-2022 End: 03-30-[address] THERON MENDOZA Facility:[facility] Start: 11-25-2021 End: 11-26-[address] THERON MENDOZA Facility:[facility] Start: 11-24-2021 End: 11-25-[address] THERON MENDOZA Facility:[facility] Start: 11-22-2021 Adult health examination Theron Mendoza Other [email or web address] Other Start: 11-20-2021 End: 11-20-2021 Patient encounter procedure Tom ARGUETA [facility] Start: 09-14-2021 End: 09-15-[address] THERON MENDOZA Facility:[facility] Start: 09-10-2017 End: 09-11-2017 Ambulatory DEFAULT PHYSICIAN Facility:[facility] Start: 04-25-2017 End: 04-26-2017 Ambulatory PROVIDER UNKNOWN Facility:[facility] Start: 04-15-2017 End: 04-16-2017 Evaluation and management of inpatient THERON MENDOZA Facility:[facility] Procedures Date Procedure Procedure Detail Performing Clinician Start: 04-08-2018 Cystoscopy Tom STUART Start: 04-15-2017 DILATION OF 2 COR AR T WITH 2 DRUG-ELUT, PERC APPROACH JENNY COPPOLA Start: 10-14-2015 General examination of patient Theron Mendoza Other Start: 10-14-2015 Screening for malign ant neoplasm of colon Theron Mendoza Other Start: 10-14-2015 Screening for malign ant neoplasm of prostate Theron Mendoza Other Start: 06-11-2014 Pre-surgery evaluation Theron Mendoza Other Start: 06-11-2014 Preoperative cardiov ascular examination Theron Mendoza Other Start: 04-29-2013 Colonoscopy normal (finding) Tomgiuliana ARGUETA Start: 10-11-2011 Transurethral prostatectomy Tomgiuliana ARGUETA Start: 09-14-2011 Cystoscopy Tom STUART Start: 05-02-2010 Cystoscopy Tom STUART Start: 04-18-2010 Cystoscopy Tom STUART Start: 09-07-2008 Laser ablation of prostate Tomgiuliana ARGUETA Start: 08-31-2008 Cystoscopy Tom STUART Start: 08-25-2008 Urodynamic studies Mary gusmanzak ARGUETA Start: 08-03-2008 Transrectal biopsy o f prostate using ultrasound guidance Tom ARGUETA Arthroscopy of knee Tom ARGUETA Depression screening Rasheed Mendoza Other Operation on heart Tom MARTINEZ Placement of stent i n cardiac conduit Tom ARGUETA Immunizations Immunization Date Immunization Notes Care Provider Kaden rueda 04-03-2022 influenza virus vaccine, split virus (incl. purified surface antigen) Theron Mendoza Other [email or web address] Other 04-03-2022 Prevnar 20 Theron Mendoza Other [facility] Other 03-28-2021 influenza virus vaccine, split virus (incl. purified surface antigen) Theron Mendoza Other [email or web address] Other 04-03-2018 diphtheria, tetanus toxoids and acellular pertussis vaccine, unspecified formulation Theron Mendoza Other [facility] Other pneumococcal Conjuga te, unspecified formulation; Translations: [Need for prophylactic vaccination against Streptococcus pneumoniae (pneumococcus)] Theron Mendoza Other [facility] Other Payers Date Payer Category Payer Medicare [id number] 1958 Private Health Insurance [id number] 1958 Self-pay [id number] 1950 Unknown [id number] 2.16.84 [id number] 1950 Unknown [id number] 2.16.84 [id number] 1950 Unknown [id number] 2.16.84 [id number] 1950 Unknown [id number] 2.16.84 [id number] 1950 Unknown [id number] 2.16.84 [id number] 1950 Unknown [id number] 2.16.8 [id number] 1950 Unknown [id number] 2.16.8 [id number] Medicare [id number] Unknown Social History Date Type Detail Facility Start: 04-10-2021 Tobacco smoking status Ex-smoker (fi nding) [facility] Sex Assigned At Male [facility] Medical Equipment Procedure Code Equipment Code Equipment Origin al Text Equipment Identifier Dates BD Pen Needle Sh ort U/F 31G X 8 MM Start: 01-07-2023 Functional Status Date Assessment Result Facility 11-20-2021 Functional Status N/A [facility] Clinical Notes 11-20-2021 to 04-02-2023 Note Date & Type Note Facility 04-02-2023 Evaluation note Encounter Date Diagnosis Assessment Notes Mar, ASHD (arterioscleroti c heart disease) (ICD-10 - I25.10) This patient is stable without activity related CP, dyspnea or lightheadedness. They are instructed to continue exercise and AHA diet plan. Continue secondary prevention measures. Mar, Type 2 diabetes mellitus with hyperglycemia (ICD-10 - E11.65) This patient is following a comprehensive diabetic treatment plan. They are checking their feet daily for calluses and nonhealing ulcers. They are being seen for yearly dilated eye examinations. Goals: SBP less than 130, LDL less than 100, FBS less than 140, A1C less than 7%. They are checking their BS daily, will which are reviewed at the office visit. Continue regular routine monitoring of A1C,] Microalbumin, Dilated eye exam and Foot exam Mar, Primary hypertension (ICD-10 - I10) This patient is instructed to consume a healthy, low-fat, low-salt diet. They are also encouraged to continue exercise to achieve/maintain a normal BMI. Mar, Mixed hyperlipidemia (ICD-10 - E78.2) Instructed on diet and exercise with continued statin therapy.Discussed the beneficial effects of lowering cholesterol in reducing the risk for cerebrovascular and cardiovascular disease. 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 He remains on antiplatelet therapy. He denies change in appetite or bowel habits He denies heartburn, dysphagia, melena or hematochezia Mar, Other chronic pain (ICD-10 - G89.29) Mar, Pain in right knee (ICD-10 - M25.561) Persisted since September. - examination unremarkable - no swelling, erythema or warmth: unlikely inflammatory - likely arthritic but not a TKA candidate per Orthopedics Quad exercises, ice/heat and Tylenol. Avoid squatting and kneeling. Mar, Shortness of breath (ICD-10 - R06.02) Feels shaky and dyspneic this morning. Week long cold like symptoms. Denies CP, palpitations, diaphoresis or lightheadedness He worked in yard yesterday w/o problems. Psat 98% VSS afebrile Monitor for now Home and rest, push fluids ER for increased dyspnea, CP or lightheadedness _update office tomorrow [email or web address] Other 12-04-2023 Evaluation note* Encounter Date Diagnosis Assessment Notes Treatment Notes Treatment Clinical Notes Mar, Primary hypertension (ICD-10 - I10) Mar, Type 2 diabetes mellitus with hyperglycemia (ICD-10 - E11.65) Mar, Mixed hyperlipidemia (ICD-10 - E78.2) Mar, ASHD (arteriosclerotic heart disease) (ICD-10 - I25.10) Mar, High risk medication use (ICD-10 - Z79.899) [facility] Other 09-11-2023 Evaluation note* Encounter Date Diagnosis Assessment Notes Treatment Notes Treatment Clinical Notes Dec, Type 2 diabetes mellitus with hyperglycemia (ICD-10 - E11.65) [email or web address] Other 07-06-2023 Evaluation note* Encounter Date Diagnosis Assessment Notes Treatment Notes Treatment Clinical Notes Oct, Medicare annual wellness visit, subsequent (ICD-10 - Z00.00) Personalized health advice was given to the beneficiary including a written plan for screenings discussed and provided. Advanced care planning reviewed and/or information given as requested. Additional counseling was provided here today in regards to, [ ]. The above visit was performed by [ ], under direct supervision of [ ]. Document reviewed and amended by provider signed below. Oct, ASHD (arteriosclerotic heart disease) (ICD-10 - I25.10) This patient is stable without activity related CP, dyspnea or lightheadedness. They are instructed to continue exercise and AHA diet plan. Oct, Type 2 diabetes mellitus with hyperglycemia (ICD-10 - E11.65) This patient is following a comprehensive diabetic treatment plan. They are checking their feet daily for calluses and nonhealing ulcers. They are being seen for yearly dilated eye examinations. Goals: SBP less than 130, LDL less than 100, FBS less than 140, AC and A1C less than 7%. They are checking their BS daily, will which are reviewed at the office visit. Continue regular routine monitoring of A1C,] Microalbumin, Dilated eye exam and Foot exam Oct, Mixed hyperlipidemia (ICD-10 - E78.2) Instructed on diet and exercise with continued statin therapy.Discussed the beneficial effects of lowering cholesterol in reducing the risk for cerebrovascular and cardiovascular disease. Oct, snf (current) use of insulin (ICD-10 - Z79.4) Oct, Primary hypertension (ICD-10 - I10) This patient is instructed to consume a healthy, low-fat, low-salt diet. They are also encouraged to continue exercise to achieve/maintain a normal BMI. Oct, Screening PSA (prostate specific antigen) (ICD-10 - Z12.5) Completed w/ , normal [email or web address] Other 06-07-2023 Evaluation note* Encounter Date Diagnosis Assessment Notes Treatment Notes Treatment Clinical Notes Sep, Internal derangement of right knee (ICD-10 - M23.91) Gentle ROM exercises, ice/heat and Tylenol as needed. Avoid NSAIDs due to CAD and CKD. Voltaren Gel saft to use qid. MRI and referral to Orthopedics for acute swelling and pain of right knee. Sep, Primary hypertension (ICD-10 - I10) This patient is instructed to consume a healthy, low-fat, low-salt diet. They are also encouraged to continue exercise to achieve/maintain a normal BMI. Avoid NSAIDs [facility] Other 07-25-2022 Hospital Discharge instructions Patient Education 11/20/2021 13:13:21 Hematuria, Adult Hematuria, Adult Hematuria is blood in the urine. Blood may be visible in the urine, or it may be identified with a test. This condition can be caused by infections of the bladder, urethra, kidney, or prostate. Otherpossible causes include: Kidney stones. Cancer of the urinary tract. Too much calcium in the urine. Conditions that are passed from parent to child (inherited conditions). Exercise that requires a lot of energy. Infections can usually be treated with medicine, and a kidney stone usually will pass through your urine. If neither of these is the cause of your hematuria, more tests may be needed to identify the cause of your symptoms. It is very important to tell your health care provider about any blood in your urine, even if it ispainless or the blood stops without treatment. Blood in the urine, when it happens and then stops and then happens again, can be a symptom of a very serious condition, including cancer. There is no pain in the initial stages of many urinary cancers. Follow these instructions at home: Medicines Take dmin-pax-alnpyfo and prescription medicines only as told by your health care provider. If you were prescribed an antibiotic medicine, take it as told by your health care provider. Do notstop taking the antibiotic even if you start to feel better. Eating and drinking Drink enough fluid to keep your urine clear or pale yellow. It is recommended that you drink 3 4 quarts (2.8 3.8 L) a day. If you have been diagnosed with an infection, it is recommended that you drink cranberry juice in addition to large amounts of water. Avoid caffeine, tea, and carbonated beverages. These tend to irritate the bladder. Avoid alcohol because it may irritate the prostate (men). General instructions If you have been diagnosed with a kidney stone, follow your health care provider's instructions about straining your urine to catch the stone. Empty your bladder often. Avoid holding urine for long periods of time. If you are female: ?After a bowel movement, wipe from front to back and use each piece of toilet paper only once. ?Empty your bladder before and after sex. Pay attention to any changes in your symptoms. Tell your health care provider about any changes or any new symptoms. It is your responsibility to get your test results. Ask your health care provider, or the department performing the test, when your results will be ready. Keep all follow-up visits as told by your health care provider. This is important. Contact a health care provider if: You develop back pain. You have a fever. You have nausea or vomiting. Your symptoms do not improve after 3 days. Your symptoms get worse. Get help right away if: You develop severe vomiting and are unable take medicine without vomiting. You develop severe pain in your back or abdomen even though you are taking medicine. You pass a large amount of blood in your urine. You pass blood clots in your urine. You feel very weak or like you might faint. You faint. Summary Hematuria is blood in the urine. It has many possible causes. It is very important that you tell your health care provider about any blood in your urine, even ifit is painless or the blood stops without treatment. Take cxyb-fep-ixjwmne and prescription medicines only as told by your health care provider. Drink enough fluid to keep your urine clear or pale yellow. This information is not intended to replace advice given to you by your health care provider. Make sure you discuss any questions you have with your health care provider. Document Released: 04/15/2006 Document Revised: 09/09/2019 Document Reviewed: 05/18/2017 [employer] Patient Education 2020 [employer] Follow Up Care 09/21/2021 10:23:43 With:Tom ARGUETA MD, URL Address: [facility] [address] [place] [address]- [phone] When: Unknown [facility] evaluation + Plan note Future Appointments Appointment Date:11/28/2021 08:45:00 AM Scheduled Provider: Location:[facility] Appointment Type:Urology CALL PAT Appointment Date:12/12/2021 10:30:00 AM Scheduled Provider: Location:[facility] Appointment Type:Urology FT Appointment Date:04/13/2022 10:45:00 AM Scheduled Provider:Tom ARGUETA MD Location:[facility] Appointment Type:URO Office Visit [facility] evaluation noteNo InformationNort All [employer] Other History general Narrative - Reported* Type Description Date Medical History ASHD Medical History HTN Medical History Hyperlipidemia Medical History T2DM Medical History GERD Surgical History ANGIOPLASTY Surgical History [facility] PCI/stent RCA and LAD 2007 Surgical History C PCI/stent RCA 2016 Surgical History [facility] PCI/stent OM and LCx 2016 Surgical History C PCI/stent RCA x 2 2017 Surgical History [facility] PCI/stent LAD 2017 Surgical History TURP, TRUS/bx 2009 Surgical History Arthroscopy right knee 2004, 20 14 Surgical History Arthroscopy left knee 2003 Hospitalization History see surgical history [email or web address] Other Hospital course Narrative No data available for this section [facility] [employer] progress note No data available for this section [facility] [employer] reason for referral (narrative)* Reason Referral for interna l derangement right knee Diagnosis 1 Internal derangement of right knee (M23.91) Referral Organization [facility] bhargav Referring Provider First Name Theron Referring Provider Last Name Guido Referring Provider Specialty Internal Me dicine Referred Organization Unknown Facility Referred Provider Jenny Mccabe Jr Referred Provider Specialty Orthopedic S urgery Referral Priority Routine General Notes Patient being referr ed for persistent swelling and pain of the right knee. He has undergone arthroscopy x 2 in the past. He has pain w/ any weight bearing activity. He is unable to fully extend or flex his knee. Medial joint line tenderness. Clinical Notes MRI right knee to be included [email or web address] Other Summary Purpose Family History No Family History Records FoundNo Family History Records FoundNo Family History Records FoundNo Family History Records Found Advance Directives No Advanced Directives Records FoundNo Advanced Directives Records FoundNo Advanced Directives Records FoundNo Advanced Directives Records Found Additional Source Comments (unrecognized sect ion and content) No Status Records FoundNo Status Records FoundNo Status Records FoundNo Status Records Found INFORMATION SOURCE (unrecogn ized section and content) DATE CREATED AUTHOR 10/16/[address] [facility] DATE CREATED AUTHOR AUTHOR'S ORGANIZ ATION 04/04/2019 [facility] DATE CREATED AUTHOR AUTHOR'S ORGANIZ ATION [facility]20[facility] DATE CREATED AUTHOR AUTHOR'S ORGANIZ ATION 08/24/2023 Daniel Mora [facility] Care Team (unrecognized sect ion and content) Personnel Name: THERON MENDOZA DO Address: [address] [facility] [address]- REASON FOR VISIT (unrecogniz ed section and content) Wants in [facility] InformationNo InformationBlood Work?Check UpUpdate FOR RECORDS PERTAINING TO PATIENTS WHO ARE OR HAVE BEEN ENROLLED IN A CHEMICAL DEPENDENCY/SUBSTANCEABUSE PROGRAM, SOME INFORMATION MAY BE OMITTED. This clinical summary was aggregated from multiple sources. Caution should be exercised in using it in the provision of clinical care. This summary normalizes information from multiple sources, and as a consequence, information in this document may materially change the coding, format and clinical context of patient data. In addition, data may be omitted in some cases. CLINICAL DECISIONS SHOULD BE BASED ON THE PRIMARY CLINICAL RECORDS. [employer] provides no warranty or guarantee of the accuracy or completeness of information in this document.
[2023-09-18 04:09] LABS: PSA, Free 0.78 ng/mL; Prostate Specific Ag 1.9 ng/mL (0.0-4.0)
== END 2023-09-17 09:31 | disposition home or self-care (01) ==
LOC: US 09:30
PROVIDERS: PCP Internal Medicine; Visit Provider Urology
DX: R31.0 Gross hematuria (principal); Z12.5 Encounter for screening for malignant neoplasm of prostate; N40.1 Benign prostatic hyperplasia with lower urinary tract symptoms
CPT/HCPCS: 36415; 76775; 84153; 84154

== ENCOUNTER 2023-11-05 07:18 | Outpatient (OUT) | payer MEDICARE, OTHER, SELFPAY ==
[2023-11-05 08:15] LABS: Microalbumin Urine Random 3.4 mg/dL (<=30.0)
[2023-11-05 08:18] LABS: Estimated Average Glucose 143 mg/dL; Glycohemoglobin A1C 6.6 % (4.5-6.2)
[2023-11-05 08:45] LABS: Alanine Aminotransferase 48 U/L (16-63); Albumin Globulin Ratio 1.2; Alkaline Phosphatase 74 U/L (46-116); Anion Gap 13.8; Aspartate Amino Transferase 34 U/L (15-37); BUN Creatinine Ratio 19.1; Bilirubin Total 0.9 mg/dL (0.2-1.0); Calcium 8.6 mg/dL (8.5-10.1); Carbon Dioxide 28.3 mmol/L (21.0-32.0); Chloride 103 mmol/L (98-107); Chol HDL Ratio 2.8; Cholesterol 119 mg/dL (<=200); Estimated GFR (African America >60 (>=60); Estimated GFR (Non-African Ame >60 (>=60); Globulin 3.3 g/dL; Glucose 139 mg/dL (74-106); HDL Cholesterol 42 mg/dL (40-60); Potassium 4.1 mmol/L (3.5-5.1); Sodium 141 mmol/L (136-145); Total Protein 7.3 g/dL (6.4-8.2); Triglycerides 178 mg/dL (<=150); VLDL CHOLESTEROL 35.6 mg/dL
--- NOTE | 2023-11-05 14:46 | XR_ITS ---
[place] [id number] Patient Name: LISA LUGO MRN: [id number] date: 1950 Sex: M Assigned Patient Location: LAB Current Patient Location: Accession/Order Number: [id number] Exam Date: 11/05/2023 14:50 Report Date: 11/06/2023 07:21 At the request of: JUANA GUTIERREZ Procedure: XR pelvis 1-2V EXAMINATION: XR pelvis 1-2V HISTORY: Low Back Pain COMPARISON: No relevant comparison available. FINDINGS: BOWEL GAS PATTERN: No abnormal dilation or deviation. CALCIFICATIONS: Multiple pelvic calcifications, vascular phleboliths are favored OTHER: Moderate bilateral hip osteoarthropathy with joint space narrowing and marginal osteophyte formation. Degenerative spondylosis of the spine XR/XR pelvis 1-2V IMPRESSION: Moderate bilateral hip osteoarthritis Electronically authenticated by: LISA RONQUILLO Date: 11/06/2023 07:21
--- NOTE | 2023-11-05 15:00 | XR_ITS ---
[facility] [place] [address] Patient Name: LISA LUGO MRN: [id number] date: 1950 Sex: M Assigned Patient Location: LAB Current Patient Location: Accession/Order Number: [id number] Exam Date: 11/05/2023 14:50 Report Date: 11/06/2023 07:20 At the request of: JUANA GUTIERREZ Procedure: XR lumbar spine 6V w bending EXAMINATION: XR lumbar spine 6V w bending HISTORY: Low Back Pain COMPARISON: No relevant comparison available. FINDINGS: BONES: Normal alignment with no acute fracture or spondylolisthesis. Moderate diffuse degenerative spondylosis and facet osteoarthropathy DISC SPACES: Moderate multilevel disc space narrowing most significant at L5-S1 with endplate sclerosis PARASPINOUS: Negative. No paraspinous abnormality is seen. OTHER: No transient spondylolisthesis with flexion or extension. Vascular calcifications XR/XR lumbar spine 6V w bending IMPRESSION: Moderate degenerative changes with no dynamic instability Electronically authenticated by: LISA RONQUILLO Date: 11/06/2023 07:20
[2023-11-05 15:07] LABS: Basophils Percent Auto 0.7 % (0.2-2.0); Eosinophils Percent Auto 1.4 % (0.9-7.0); Hematocrit 38.8 % (42.0-54.0); Hemoglobin 12.6 g/dL (14.0-18.0); Lymphocytes Percent Auto 35.4 % (20.5-60.0); Mean Corpuscular HGB Conc 32.5 g/dL (29.9-35.2); Mean Corpuscular Hemoglobin 29.4 pg (25.9-34.0); Mean Corpuscular Volume 90.7 fL (80.0-94.0); Mean Platelet Volume 10.7 fL (9.5-13.5); Monocytes Absolute Auto 0.3 10^3/uL (0.3-0.8); Monocytes Percent Auto 10.2 % (1.7-12.0); Neutrophils Absolute Auto 1.5 10^3/uL (1.4-6.5); Neutrophils Percent Auto 52.3 % (43.0-75.0); Platelet Count 188 10^3/uL (150-450); Red Blood Count 4.28 10^6/uL (4.70-6.10); Red Cell Distribution Width 14.3 % (11.0-15.0); White Blood Count 2.9 10^3/uL (4.0-11.0)
[2023-11-05 15:38] LABS: Percent Iron Saturation 22.2 %
== END 2023-11-05 07:19 | disposition home or self-care (01) ==
LOC: LAB 07:20
PROVIDERS: PCP Internal Medicine; Visit Provider Internal Medicine
DX: D64.9 Anemia, unspecified (principal); E11.65 Type 2 diabetes mellitus with hyperglycemia; Z79.4 Long term (current) use of insulin; E78.00 Pure hypercholesterolemia, unspecified; I10 Essential (primary) hypertension; I25.10 Atherosclerotic heart disease of native coronary artery without angina pectoris; M54.50 Low back pain, unspecified; M16.0 Bilateral primary osteoarthritis of hip
CPT/HCPCS: 36415; 72114; 72170; 80053; 80061; 82043; 82607; 82728; 83036; 83540; 83550; 85025

== ENCOUNTER 2023-11-15 09:56 | Outpatient (RCR) | payer MEDICARE, OTHER, SELFPAY | END 2023-12-18 17:06 | disposition home or self-care (01) | LOC: PT 09:56 | PROVIDERS: PCP Internal Medicine; Visit Provider Internal Medicine | DX: M54.50 Low back pain, unspecified (principal); M25.551 Pain in right hip | CPT/HCPCS: 97010; 97110; 97140; 97161; G0283 ==

== ENCOUNTER 2023-11-18 12:00 | Outpatient (OUT) | payer MEDICARE, OTHER, SELFPAY ==
--- NOTE | 2023-11-18 14:18 | P.CN_ITS ---
Consult Note: HPI Data of Consult Patient: new to practice Consult date: 11/18/23 Requesting Physician: Natali Weir MD Primary Care Provider: Theron Lora DO Consult Narrative Reason for consult: low back, bilateral lower extremity pain Narrative: 73yom who presents for evaluation. notes longstanding right hip, bilateral lower extremity pain. imaging reviewed, significant for bilateral hip osteoarthritis, as well as lumbar facet arthropathy throughout lumbar spine. no advanced imaging available. has engaged in physical therapy in past 3 months and continues in provider directed home exercises, which do not provide longstanding relief. uses primarily tylenol and OTC NSAIDs. denies adverse med side effects. cc:: CC: Natali Weir MD Review of Systems ROS Status of ROS 10 or more systems reviewed and unremark able except as noted in history and below Exam Narrative Exam Narrative: Psych-alert and oriented x 3. Attentive and appropriate, constitutionally normal, displays normal mood and affect per situation. There are no obvious deficits in memory, reasoning, or intellect.? Skin-no obvious rashes, bruising, erythema noted to the patient's area of pain.? Extremities- extremities are warm with minimal edema and palpable pulses. Lumbar-tenderness to palpation noted in the lumbar spine and paraspinal musculature. Pain is elicited with flexion, extension, and lateral rotation of the lumbar spine. Range of motion is diminished with these motions. Facet loading maneuvers are positive. Strength-noted to be unremarkable with the exception of decreased strength rated at 4 out of 5 in bilateral quadriceps femoris, anterior tibialis. Sensory-no notable sensory deficits in the bilateral lower extremities to touch or pinprick in all dermatomal distributions with the exception to decreased sensation to the bilateral L5, S1 dermatomal distribution Coordination remains intact.? Gait remains non-antalgic. Assessment and Plan Assessment and Plan (1) Lumbar stenosis with neurogenic claudication: (2) Osteoarthritis, hip, bilateral: Qualifiers: Osteoarthritis type: primary Qualified Code(s): M16.0 - Bilateral primary osteoarthritis of hip (3) Lumbar spondylosis: Plan 73yom who presents for evaluation. failed conservative measures, as noted. imaging reviewed, as noted. given symptoms and imaging, prudent to obtain lumbar mri without contrast. he is in agreement. meds reviewed, no changes. follow up after imaging.
== END 2023-11-18 12:01 | disposition home or self-care (01) ==
LOC: PM 12:02
PROVIDERS: PCP Internal Medicine; Visit Provider Anesthesiology
DX: M48.062 Spinal stenosis, lumbar region with neurogenic claudication (principal); M16.0 Bilateral primary osteoarthritis of hip; M47.816 Spondylosis without myelopathy or radiculopathy, lumbar region
CPT/HCPCS: G0463

== ENCOUNTER 2023-11-20 09:18 | Outpatient (OUT) | payer MEDICARE, OTHER, SELFPAY ==
--- NOTE | 2023-11-20 09:25 | MR_ITS ---
[address] [address] Patient Name: LISA LUGO MRN: [id number] date: 1950 Sex: M Assigned Patient Location: MRI Current Patient Location: MRI Accession/Order Number: [id number] Exam Date: 11/20/2023 10:00 Report Date: 11/20/2023 12:37 At the request of: JONO MANZANARES Procedure: MR lumbar spine wo con EXAMINATION: MR lumbar spine wo con HISTORY: Lumbar Stenosis With Neuroclaudication COMPARISON: No relevant comparison available. TECHNIQUE: A variety of imaging planes and parameters were utilized for visualization of suspected pathology. FINDINGS: For the purposes of numbering, sagittal T2 image # 8 extends from the T11 vertebral body superiorly to the S3 level inferiorly. PARASPINAL AREA: Normal with no visible mass. BONES: Normal alignment with no acute fracture or spondylolisthesis . Moderate degenerative spondylosis CORD/CAUDA EQUINA: Normal caliber, contour, and signal intensity. DISC LEVELS: 12-L1: No significant disc/facet abnormality, spinal stenosis, or foraminal stenosis. L1-L2: Early degenerative disc disease is present without focal protrusion or neural impingement. L2-L3: Mild to moderate degenerative disc disease is present without visible neural impingement. L3-L4: Mild to moderate degenerative disc disease is present without visible neural impingement. L4-L5: Disc desiccation with mild disc space narrowing. Mild diffuse disc bulge. Severe ligamentum flavum hypertrophy and facet osteoarthropathy. Severe narrowing of the central canal axial image #8 measuring 6 mm in AP dimension. No foraminal stenosis L5-S1: Moderate disc space narrowing and disc desiccation. Broad-based posterior disc herniation the protrusion type extending posteriorly up to 3.6 mm. Moderate ligamentum flavum hypertrophy and facet osteoarthropathy. Mild trefoil narrowing of the central canal. Moderate bilateral foraminal stenosis MR/MR lumbar spine wo con IMPRESSION: Degenerative changes Severe central canal stenosis at L4-L5 Bilateral foraminal stenosis at L5-S1 Electronically authenticated by: LISA RONQUILLO Date: 11/20/2023 12:37
--- OUTSIDE RECORDS SUMMARY | 2023-11-20 09:27 | XMS_ITS | CCD ---
Author Organization [facility] Care Team Providers Care Social Contact Worker Name Role Phone THERON MENDOZA Unavailable Unavailable TINO GUNDERSON Unavailable Unavailable MO SANCHEZ AM Unavailable Unavailable MO SANCHEZ AM Unavailable Unavailable [place] Unavailable Unavailable UNKNOWN, PROVIDER Unavailable Unavailable UNKNOWN, PROVIDER Unavailable Unavailable UNKNOWN, PROVIDER Unavailable Unavailable GUIDO, THERON Unavailable Unavailable GUDIO, THERON Unavailable Unavailable PHYSICIAN, DEFAULT Unavailable Unavailable PHYSICIAN, DEFAULT Unavailable Unavailable GUIDO, THERON Unavailable Unavailable GUIDO, THERON Primary Care Physician GUIDO, DR CRUMP Primary Care Unavailable LIZABETH, DR OWUSU Admitting Unavailable LIZABETH, DR OWUSU Attending Unavailable LIZABETH, DR OWUSU Consulting Unavailable SCHNEBLE, PARAS Consulting Unavailable BALL, DR CRUMP Attending Unavailable BALL, DR CRUMP Primary Care Unavailable BALL, DR CRUMP Admitting Unavailable BALL, DR CRUMP Attending Unavailable BALL, DR CRUMP Consulting Unavailable BALL, DR CRUMP Primary Care Unavailable BALL, DR CRUMP Admitting Unavailable BALL, DR CRUMP Referring Unavailable BALL, DR CRUMP Attending Unavailable BALL, DR CRUMP Consulting Unavailable BALL, DR CRUMP Primary Care Unavailable BALL, DR CRUMP Admitting Unavailable BALL, DR CRUMP Attending Unavailable BALL, DR CRUMP Consulting Unavailable BALL, DR CRUMP Primary Care Unavailable BALL, DR CRUMP Admitting Unavailable Ball, Theron Unavailable Tom ARGUETA Attending Unavailable DOMINGA PRESLEY Attending Unavailable Allergies Allergy Classification Reported Allergen(s) Allergy Type Date of Onset Reaction(s) Facility (1 source) 08292,00; Translations: [73626,00] Propensity to adverse reactions (disorder) 9 [facility] Repository (11 sources) metFORMIN Drug Allergy diarrhea, Unknown Exhbit Other (3 sources) patient allergy list reviewed by nurse or physicia Propensity to adverse reactions 8 Comment:Done Exhbit Other (1 source) No Known Medication Allergies; Translations: [No Known Medication Allergies] Propensity to adverse reactions (disorder) [facility] Repository Medications Current Medications Medication Drug Class(es) Dates Sig (Normalized) Sig (Original) aspirin 81 mg chewable tablet (11 sources) Platelet Aggregation Inhibitor, Nonsteroidal Anti-inflammatory Drug Start: 11-05-2023 take 1 tablet by mouth once daily Aspirin Active 1 TAB PO Daily November 05, 2023 12:00am FreeTextSi tablet Orally Once a day; Note: Source Status: Continue; Provider: Guido Crump ( ) Start: 12-15-2018 take 1 tablet by mouth once da colette aspirin 81 mg oral tablet 81 mg = 1 tab(s), Oral, Daily Start Date: 12/15/18 Status: Ordered take 1 tablet by luis felipe th every twenty-four hours Aspirin 81 MG 1 tablet Orally Once a day Active Aspirin Active atenolol 25 mg oral tablet (12 sources) beta-Adrenergic Cesar Start: 09-16-2023 Atenol ol Active 0 .ROUTE .COMPLEX 90 September 16, 2023 12:45pm TAKE 1 TABLET DAILY Start: 12-15-2018 End: 09-16-2023 take 25 mg by mouth once daily Atenolol Discontinued 2 5 MG PO Daily September 16, 2023 12:00am September 16, 2023 12:45pm atorvastatin 80 mg oral tablet (11 sources) HMG-CoA Reductase Inhibitor Start: 11-05-2023 take 80 mg by mouth once daily in the evening Atorvastatin Active 80 MG PO Every evening November 05, 2023 12:00am Start: 12-16-2018 take 1 tablet by luis felipe th once daily atorvastatin 80 mg Tab 80 mg = 1 tab(s), Oral, Daily Start Date: 12/16/18 Status: Ordered celecoxib 200 mg oral capsule (9 sources) Nonsteroidal Anti-inflammatory Drug Start: 11-05-2023 take 1 capsule by mouth once daily Celecoxib (Celebrex) 200 mg capsule Active 200 MG PO Daily November 05, 2023 12:00am CeleBREX Not-Jamar ing CeleBREX Active clopidogrel 75 mg oral tablet (9 sources) P2Y12 Platelet Inhibitor Start: 11-05-2023 take 75 mg by mouth once daily Clopidogrel Active 75 MG PO Daily November 05, 2023 12:00am Start: 12-16-2018 take 1 tablet by mouth once da colette Plavix 75 mg Tab 75 mg = 1 tab(s), Oral, Daily Start Date: 12/16/18 Status: Ordered glimepiride 1 mg oral tablet (1 source) Sulfonylurea Start: 03-21-2020 take 2 tablets by mouth once daily glimepiride 1 mg Tab 2 mg = 2 tab(s), Oral, Daily, Refills(s) 0 Start Date: 03/21/20 Status: Ordered 3 ml insulin glargine 100 unt/ml pen injector (7 sources) Insulin Analog Start: 11-05-2023 Insulin Glargi ne (Lantus Solostar U-100 Insulin) 100 unit/mL (3 mL) insulin pen Active 50 UNIT SUBCUT Daily November 05, 2023 12:00am Lantus SoloStar 100 UNIT/ML INJECT 50 UNITS UNDER THE SKIN DAILY Active Lantus Solostar Pen (2 sources) Start: 12-15-2018 inject 50 [IU] by subcutaneous injection once daily Lantus Solostar Pen 50 unit(s), SubCutaneous, Daily Start Date: 12/15/18 Status: Ordered pantoprazole (12 sources) Proton Pump Inhibitor Start: 07-03-2023 Pantoprazole Active 0 .ROUTE .COMPLEX 90 July 03, 2023 10:55pm TAKE 1 TABLET DAILY ON AN EMPTY STOMACH FOLLOWED IN 30 MINUTES BY BREAKFAST Start: 12-16-2018 End: 07-03-2023 take 40 mg by mouth once daily Pantoprazole Discontinu ed 40 MG PO Daily July 03, 2023 1:00am July 03, 2023 10:55pm pioglitazone 15 mg oral tablet (9 sources) Peroxisome Proliferator Receptor alpha Agonist, Peroxisome Proliferator Receptor gamma Agonist, Thiazolidinedione Start: 11-05-2023 take 15 mg by mouth once daily Pioglitazone Active 15 MG PO Daily November 05, 2023 12:00am Start: 04-10-2021 take 1 mg by mouth [...] procedure, # 2 cap(s), Refills(s) 0, Pharmacy: [facility]/pharmacy #[id number], 177, cm, 11/20/21 12:47:00 EDT, Height/Length Dosing, 90.3, kg, 11/20/21 12:47:00 EDT, Weight Dosing Start Date: 11/20/21 Status: Ordered Metformin & Diet Manage Prod (8 sources) Metformin & Diet Manage Prod Not-Taking Metformin & Diet Manage Prod Active Suprep Bowel Prep . (8 sources) Start: 09-18-2013 Suprep Bowel P rep . as directed Orally 1 for August, Not-Taking Start: 09-18-2013 Suprep Bowel P rep . as directed Orally 1 for August, Active Problems Active Problems Problem Classification Problem Date Documented Date Episodic/Chronic Allergic reactions (3 sources) Allergic contact dermatitis due to plants, except food; Translations: [Allergic contact dermatitis due to plants, except food] Episodic Calculus of urinary tract (5 sources) History of calculus of kidney; Translations: [...] disease (20 sources) Atherosclerotic heart disease of [place] coronary artery with unstable angina pectoris; Translations: [Atherosclerotic heart disease of [place] coronary artery without angina pectoris] Onset: 08-25-2013 03-20-2019 Chronic Deficiency and other anemia (6 sources) Anemia; Translations: [Anemia, unspecified] 03-21-2020 Episodic Deficiency and other anemia (6 sources) Iron deficiency anemia; Translations: [Iron deficiency anemia, unspecified] Episodic Deficiency and other anemia (2 sources) Anemia, unspecified; Translations: [Anemia, unspecified] Episodic Diabetes mellitus with complications (20 sources) Type 2 diabetes mellitus with hyperglycemia; Translations: [Type 2 diabetes mellitus with diabetic chronic kidney disease] Onset: 06-26-2016 Chronic Diabetes mellitus without complication (11 sources) Type 2 diabetes mellitus without complications; Translations: [Type 2 diabetes mellitus] Onset: 08-25-2013 12-15-2018 Chronic Diabetes mellitus without complication (4 sources) Glycosuria; Translations: [Glycosuria] Onset: 10-01-2023 04-06-2019 Episodic Diseases of white blood cells (9 sources) Lymphocytopenia; Translations: [Lymphocytopenia] Onset: 11-30-2021 03-21-2020 Chronic Disorders of lipid metabolism (20 sources) Hyperlipidemia, unspecified; Translations: [Hyperlipidemia] Onset: 08-25-2013 12-15-2018 Chronic Esophageal disorders (11 sources) Gastro-esophageal reflux disease without esophagitis; Translations: [Gastroesophageal reflux disease] Onset: 08-25-2013 Resolved: 09-16-2019 03-20-2019 Chronic Essential hypertension (20 sources) Essential (primary) hypertension; Translations: [Benign hypertension] Onset: 08-25-2013 12-15-2018 Chronic Genitourinary symptoms and ill-defined conditions (15 sources) Blood in urine; Translations: [Gross hematuria] Onset: 11-20-2021 Episodic Hyperplasia of prostate (20 sources) Benign prostatic hypertrophy with outflow obstruction; Translations: [Benign prostatic hyperplasia with lower urinary tract symptoms] Onset: 08-25-2013 Chronic Immunizations and screening for infectious disease (3 sources) Vaccination given; Translations: [Encounter for immunization] Episodic Inflammatory conditions of male genital organs (2 sources) Chronic prostatitis 03-20-2019 Chronic Joint disorders and dislocations; trauma-related (9 sources) Derangement of right knee; Translations: [Unspecified internal derangement of right knee] Chronic Osteoarthritis (3 sources) Osteoarthritis; Translations: [Polyosteoarthritis, unspecified] Onset: 09-18-2013 Chronic Other aftercare (6 sources) long-term (current) use of insulin; Translations: [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 of antithrombotics/antip latelets] Onset: 04-15-2017 Episodic Other aftercare (8 sources) Long-term current use of insulin; Translations: [long-term (current) use of insulin] Episodic Other aftercare (1 source) Other mcc (current) drug therapy Episodic Other injuries and conditions due to external causes (3 sources) History of fall; Translations: [History of falling] Episodic Other liver diseases (6 sources) Abnormal liver function; Translations: [Abnormal liver function study] Chronic Other lower respiratory disease (1 source) Shortness of breath Episodic Other male genital disorders (2 sources) Pain in testicle 03-20-2019 Episodic Other male genital disorders (2 sources) Testicular mass 03-20-2019 Episodic Other nervous system [...] conditions (not mental disorders or infectious disease) (3 sources) Encounter for screening for malignant neoplasm of prostate; Translations: [Patient encounter status] Episodic Other skin disorders (2 sources) Actinic keratosis 12-16-2018 Episodic Other skin disorders (2 sources) Epidermoid cyst of skin 03-22-2020 Episodic Other skin disorders (2 sources) Epidermoid cyst of skin of neck 12-16-2018 Episodic Other skin disorders (2 sources) Senile hyperkeratosis 01-30-2019 Episodic Other skin disorders (6 sources) Sebaceous cyst; Translations: [Sebaceous cyst] Onset: 11-21-2018 Episodic Residual codes; unclassified (1 source) H/O: Disorder; Translations: [Personal history of other specified conditions] Onset: 10-01-2023 Episodic Spondylosis; intervertebral disc disorders; other back problems (7 sources) Sciatica; Translations: [Lumbago with sciatica, left side] Onset: 09-18-2013 11-05-2023 Episodic Substance-related disorders (3 sources) Tobacco user; Translations: [Nicotine dependence, cigarettes, in remission] Chronic Unclassified (1 source) Stenosis of coronary artery stent, initial encounter; Translations: [STENOSIS OF CORONARY ARTERY STENT, INITIAL ENCOUNTER] Onset: 04-15-2017 Unclassified (2 sources) Unknown / UNK(Unknown) Onset: 04-15-2017 Unclassified (2 sources) Drug therapy finding 04-06-2019 Unclassified (2 sources) Finding of sensation of bladder 03-20-2019 Past [...] [History of tobacco use] Onset: 06-26-2016 Episodic Unclassified (3 sources) Long-term current use of drug therapy; Translations: [Long-term (current) use of other medications] Onset: 09-25-2016 Results Test Name Value Interpretation Reference Range Facility Cholesterol in LDL Calc [Mas s/Vol]on 11-05-2023 Cholesterol in LDL [Mass/Vol] 42.0 mg/dL [facility] Comment on above: <100 mg/dl [id number] mg/dl NEAR OR ABOVE [id number] mg/dl BORDERLINE [id number] mg/dl HIGH>190 mg/dl VERY HIGH Cholesterol in VLDL Calc [Ma ss/Vol]on 11-05-2023 Cholesterol in VLDL [Mass/Vol] 35.6 mg/dL [facility] Estimated glomerular filtrat ion rate (GFR) non- Americanon 11-05-2023 GFR/1.73 sq M.predicted among non-blacks MDRD (S/P/Bld) [Vol rate/Area] mL/min/{1.73_m2} >=60 [facility] Globulin Calc (S) [Mass/Vol] on 11-05-2023 Globulin (S) [Mass/Vol] 3.3 g/dL [facility] Glucose mean value [Mass/vol ume] in Blood Estimated from glycated hemoglobinon 11-05-2023 Average glucose Estimated from glycated hemoglobin (Bld) [Mass/Vol] 143 mg/dL [facility] Laboratory - Chemistry and C hemistry - challengeon 11-05-2023 Albumin [Mass/Vol] 4.0 g/dL 3.4-5.0 [facility] ALP [Catalytic activity/Vol] 74 U/L 46-116 [facility] ALT [Catalytic activity/Vol] 48 U/L 16-63 [facility] AST [Catalytic activity/Vol] 34 U/L 15-37 [facility] Bilirubin [Mass/Vol] 0.9 mg/dL 0.2-1.0 [facility] Calcium [Mass/Vol] 8.6 mg/dL 8.5-10.1 [facility] Chloride [Moles/Vol] 103 mmol/L 98-107 [facility] Cholesterol [Mass/Vol] 119 mg/dL <=200 [facility] Cholesterol in HDL [Mass/Vol] 42 mg/dL 40-60 [facility] Comment on above: > or =60 mg/dl - LOW CARDIOVASCULAR RISK <40 mg/dl - HIGH CARDIOVASCULAR RISK CO2 [Moles/Vol] 28.3 mmol/L 21.0-32.0 [facility] Creatinine [Mass/Vol] 1.10 mg/dL 0.70-1.30 [facility] GFR/1.73 sq M.predicted MDRD (S/P/Bld) [Vol rate/Area] mL/min/{1.73_m2} >=60 [facility] Glucose [Mass/Vol] 139 mg/dL High 74-106 [facility] Potassium [Moles/Vol] 4.1 mmol/L 3.5-5.1 [facility] Protein [Mass/Vol] 7.3 g/dL 6.4-8.2 [facility] Sodium [Moles/Vol] 141 mmol/L 136-145 [facility] Triglyceride [Mass/Vol] 178 mg/dL High <=150 [facility] Urea nitrogen [Mass/Vol] 21.0 mg/dL High 7.0-18.0 [facility] Urea nitrogen/Creatin ine [Mass ratio] 19.1 mg/mg [facility] Laboratory - Hematology and Cell countson 11-05-2023 HbA1c (Bld) [Mass fraction] 6.6 % High 4.5-6.2 [facility] Comment on above: ADA RECOMMENDED LIMIT 4.0 - 6.0ADA THERA PEUTIC TARGET < 7.0ACTION SUGGESTED> 7.0 Microalbumin [Mass/volume] i n Urineon 11-05-2023 Albumin DL <= 20 mg/L (U) [Mass/Vol] 3.4 mg/dL <=30.0 [facility] Serum or plasma albumin/glob ulin mass ratioon 11-05-2023 Albumin/Globulin [Mass ratio] 1.2 {ratio} [facility] Serum or plasma anion gap de terminationon 11-05-2023 Anion gap [Moles/Vol] 13.8 mmol/L [facility] Serum or plasma total choles terol/high density lipoprotein (HDL) cholesterol mass aqiules 11-05-2023 Cholesterol.tota l/Cholesterol in HDL [Mass ratio] 2.8 {ratio} [facility] Comment on above: 3.3 - 4.4 LOW RISK4.4 - 7.1 AVERAGE RISK 7.1 - 11.0 MODERATE RISK>11.0 HIGH RISK [place] 10-02-2023 Screens [id number]#[id number] Normal [facility] Screens [id number]#[id number] Normal [facility] Ambulatory Visit Summaryon 0 10-01-2023 Ambulatory Visit Summary LISA LUGO :1950 Visit Date:10/01/2023 Ambulatory Visit Instructions Your Diagnosis BPH with urinary obstruction History of gross hematuria Glucosuria Your Care Team Attending Physician - DOMINGA PRESLEY PA-C Primary Care Physician - THERON MENDOZA DO This Is Your Medications List Contact prescribing physician if questions or concerns aspirin (aspirin 81 mg oral tablet) atenolol (atenolol 25 mg Tab) atorvastatin (atorvastatin 80 mg Tab) clopidogrel (Plavix 75 mg Tab) insulin glargine (Lantus Solostar Pen) [...] (Peripheral) 72 Respiratory Rate 16 Blood Pressure 137/78 Height 177 cm Height 70 in Weight 80 kg Weight 176 lb BMI 25.54 What to do next Scheduled Follow-Up Appointments Saturday 10:15 AM EDT With: Tom ARGUETA MD Where: [facility] Patient Educationon 10-01-19 24 Patient Education Urology Benign Prostatic Hyperplasia Benign [...] Follow these instructions at home: ? Take [id number] and prescription medicines only as told by [...] the medicine (more content not included)... Normal [facility] Urology Office/Clinic Noteon 10-01-2023 Urology Office/Clinic Note Chief Complaint 1yr PSA HPI Staff 1 yr f/u w/ PSA Dx: BPH, Gross hematuria No urology meds PSA F/T 09/17/23 1.9 & 41.1% MINESH 09/17/23 *Unremarkable kidneys & bladder. Slightly heterogeneous prostate. Denies pain/burning and visible blood in urine. Denies all urinary complaints. No concerns at this time. History of Present Illness staff HPI reviewed and agree. Tests Reviewed: Reviewed UA, PSA, MINESH Review of Systems PHQ Score Initial Depression Screen Score: 0 SCORE no fever, chills, malaise, myalgia. no rash/lesions. no chest pain, palpitations, or SOB. no abdominal pain, nausea, vomiting. no unilateral calf swelling, redness, pain Physical Exam Vitals & Measurements HR: 72(Peripheral) RR: 16 BP: 137/78 HT: 70 in HT: 177 cm WT: 80 kg WT: 176 lb BMI: 25.54 General: nontoxic, NAD Mouth: moist mucosa Lungs: normal respiratory effort Cardio: regular rate, good distal perfusion Abdomen: nondistended, no suprapubic distention or tenderness, no CVA tenderness Neurologic: Grossly normal Skin: No rashes or suspicious lesions Assessment/Plan ENRIQUE 21. UA today negative for blood and infection. 1. BPH with urinary obstruction (N40.1: Benign prostatic hyperplasia with lower urinary tract symptoms) PSA: 03/20/21 - 2.64 09/12/22 - 2.00 & 37% 09/17/23 - 1.9 & 41% Not taking any BPH meds. IPSS 5. Pleased w current urinary habits. No major urologic changes in past year. PSA remains low and stable. Will cont to monitor. Follow up 1 yr with PSA or sooner if needed. Pt understands and agrees with plan. 2. History of gross hematuria (Z87.898: Personal history of other specified conditions) Hematuria workup 11/2021 neg for malignancy. MINESH 09/17/23 - Unremarkable kidneys & bladder. Slightly heterogeneous prostate. No gross hematuria since prior OV. Reviewed MINESH with pt. No additional imaging indicated at this time. 3. Glucosuria (R81: Glycosuria) UA shows 100 glucose. Pt shares A1C was a little over 7 last year. He was recommended dietary changes, he is gradually implementing these but volunteers that he could improve on his diet. Counseled pt on diet and exercise for DM management. -Tighter DM control. Exercise. Follow-up With When Contact Information SAKINA RANDALL, DOMINGA Multani, URL [address] [place] [address] Additional Instructions: 1 yr PSA Patient Education Benign Prostatic Hyperplasia Documentation recorded by the scribcourtney Marcus accurately reflects the services(s) I performed and decisions made by me. Authenticated by Dominga Presley PA-C on 10/01/2023 13:07:16. I, Trish Marcus, personally scribed for RIGO Dodge on 10/01/2023 13:03:07. . Problem List/Past Medical History Ongoing Anemia Anticoagulated ASHD (arteriosclerotic heart disease) BPH with urinary obstruction CAD (coronary artery disease) Chronic prostatitis Epidermal cyst Epidermal cyst of neck Esophageal reflux Feeling of incomplete bladder emptying Glucosuria Glycosuria Gross hematuria History of gross hematuria History of nephrolithiasis Hyperlipidemia Hypertension Lymphocytopenia [...] (Peri2), Placement of stent in cardiac conduit. Medications aspirin 81 mg oral tablet, 81 mg= 1 tab(s), Oral, Daily atenolol 25 mg Tab, 25 mg= 1 tab(s), Oral, Daily atorvastatin 80 mg Tab, 80 mg= 1 tab(s), Oral, Daily Lantus Solostar Pen, 50 unit(s), SubCutaneous, Daily Pantoprazole [address] Tab, 40 mg= 1 tab(s), Oral, Daily pioglitazone 15 mg Tab, Oral, BID Plavix 75 mg Tab, 75 mg= 1 tab(s), Oral, Daily Allergies No Known Allergies No Known Medication Allergies Social History Alcohol - Denies Alcohol Use, 12/15/2018 Substance Abuse - Denies Substance Abuse, 12/15/2018 Tobacco Former smoker, quit more than 30 days ago Tobacco Use:. Never Smokeless Tobacco Use:. Cigarettes, Household tobacco concerns: No. Yes, 10/01/2023 Former smoker, quit more than 30 days ago Tobacco Use:. Never Smokeless Tobacco Use:. Cigarettes, Stopped age [age] Years., 04/04/2020 Family History Heart disease: Father. Hyperlipidemia: Father. Hypertension: Father. Immunizations Vaccine Date Status influenza virus vaccine (more content not included)... Normal [facility] Comment on above: Result Comment: Electronically Signed By : DOMINGA PRESLEY PA-C\.br\Date and Time Signed: 10/01/23 13:08 EDT\.br\Electronically Co-Signed By: Trish Marcus\.br\Date and Time Co-Signed: 10/01/23 13:03 EDT Lab Reportson 09-18-2023 Lab Reports [id number]#[id number] [facility] RAD - Ultrasound Reporton RAD - Ultrasound Report [id number]#1.00TIFF [facility] No Panel Informationon 09-16 Free Prostate Specific Antigen 0.78 ng/mL N/A [facility] Comment on above: [place] ECLIA methodology. Prostate Specific Antigen Total 1.9 ng/mL 0.0-4.0 [facility] Comment on above: [place] ECLIA methodology.According to the [employer], Serum PSAshould decrease and remain at undetectable levels afterradical prostatectomy. The AUA defines biochemicalrecurrence as an initial PSA value 0.2 ng/mL or greaterfollowed by a subsequent confirmatory PSA value 0.2 ng/mLor greater. Values obtained with different assay methods orkits cannot be used interchangeably. Results cannot beinterpreted as absolute evidence of the presence or absenceof malignant disease. Serum or plasma free prostat e specific antigen (PSA)/total PSA ratioon 09-17-2023 Free PSA/Total PSA [Mass fraction] 41.1 % . [facility] Comment on above: The table below lists the probability of prostate cancer formen with non-suspicious AYO results and total PSA between4 and 10 ng/mL, by patient age (Luanne et al, JULISSA 1998,279:1542). % Free PSA 50-64 yr 65-75 yr 0.00-10.00% 56% 55% 10.01-15.00% 24% 35% 15.01-20.00% 17% 23% 20.01-25.00% 10% 20% >25.00% 5% 9%Please note: Luanne et al did not make specific recommendations regarding the use of percent free PSA for any other population of men.Performed at: [facility] Lab[address] [id number] Director: Guanakito Cota PhD, Phone: [phone] Reminderson 08-22-2023 Reminders - From: Sade Kilgore To: EU - Recalls Argueta; Sent: 05/02/2022 10:13:25 EST Show up: 10/27/2022 10:13:00 EDT Subject: renal US and fu Due Date/Time: 11/19/2022 10:13:00 EDT Reminder/Recall Patient is due in November 2022 for 1 year fu with renal US From: Tonja Valadez MA (EU - Recalls Argueta) To: EU - Recalls Argueta; Sent: 11/13/2022 13:34:49 EDT Show up: 08/12/2023 13:34:00 EDT Subject: RE: renal US and fu Due Date/Time: 09/13/2023 13:34:00 EDT Pt has 1yr f/u w/PSA 09/20/23. Will schedule MINESH prior to that appt. LM on VM informing pt that [facility] will be reaching out to get MINESH scheduled. Appt 09/20/23 to review results. Order & demo's faxed to the [facility] CS. MINESH scheduled 09/17/23 @ [facility] Normal [facility] GLYCOHEMOGLOBIN A1Con 2021 ADA RECOMMENDATION SEE BELOW Normal [facility] Comment on above: Result Comment: ADA RECOMMENDED LIMIT 4. 0 - 6.0 ADA THERAPEUTIC TARGET < 7.0 ACTION SUGGESTED > 7.0 Performed By: #### A 1C #### [facility] [address] [address] [address] Yara Chavez Glucose [Mass/Vol] 166 mg/dL Normal [facility] Comment on above: Performed By: #### A1C #### [facility] [address] [address] [address] Yara Chavez HbA1c (Bld) [Mass fraction] 7.4 % Critically high 4.5-6.2 [facility] Comment on above: Performed By: #### A1C #### [facility] [address] [place] [address] ABD/PELV W CONon 11-27-[address] ABD/PELV W CON EXAM: CT ABD/PELV [...] PARAS SOMMERS Date: 2021-11-26 02:01 Normal [facility] CBC AUTO DIFFon 11-24-2021 BASO # 0.0 103/ul Normal 0.0-0.1 [facility] Comment on above: Performed By: #### CBC #### [facility] [address] [place] [address] Dr. Yara Chavez Basophils/100 WBC (Bld) 0.7 % Normal 0.2-2.0 [facility] Comment on above: Performed By: #### CBC #### [facility] [address] [place] [address] Dr. Yara Chavez EO # 0.0 103/ul Normal 0.0-0.7 [facility] Comment on above: Performed By: #### CBC #### [facility] [address] [place] [address] Dr. Yara Chavez Eosinophils/100 WBC (Bld) 1.0 % Normal 0.9-7.0 [facility] Comment on above: Performed By: #### CBC #### [facility] [address] [place] [address] Dr. Yara Chavez Erythrocyte distribution width (RBC) [Ratio] 14.7 % Normal 11.0-15.0 [facility] Comment on above: Performed By: #### CBC #### [facility] [address] [place] [address] Dr. Yara Chavez Hematocrit (Bld) [Volume fraction] 38.7 % Critically low 42.0-54.0 [facility] Comment on above: Performed By: #### CBC #### [facility] [address] [place] [address] Dr. Yara Chavez Hemoglobin (Bld) [Mass/Vol] 12.3 g/dL Critically low 14.0-18.0 [facility] Comment on above: Performed By: #### CBC #### [facility] [address] [place] [address] Dr. Yara Chavez IG # 0.01 10e3/ul Normal 0.00-0.03 [facility] Comment on above: Performed By: #### CBC #### [facility] [address] [place] [address] Dr. Yara Chavez IG % 0.3 % Normal 0.0-0.5 [facility] Comment on above: Performed By: #### CBC #### [facility] [address] [place] [address] Dr. Yara Chavez LYMPH # 1.1 103/ul Critically low 1.2-3.8 [facility] Comment on above: Performed By: #### CBC #### [facility] [address] [place] [address] Dr. Yara Chavez Lymphocytes/100 WBC (Bld) 36.1 % Normal 20.5-60.0 [facility] Comment on above: Performed By: #### CBC #### [facility] [address] [place] [address] Dr. Yara Chavez MANUAL DIFF REQ NO Normal [facility] Comment on above: Performed By: #### CBC #### [facility] [address] [place] [address] Dr. Yara Chavez MCH (RBC) [Entitic mass] 28.0 pg Normal 25.9-34.0 [facility] Comment on above: Performed By: #### CBC #### [facility] [address] [address] [address] Yara Chavez MCHC (RBC) [Mass/Vol] 31.8 g/dL Normal 29.9-35.2 [facility] Comment on above: Performed By: #### CBC #### [facility] [address] [address] [address] Yara Chavez MCV (RBC) [Entitic vol] 88.2 fL Normal 80.0-94.0 [facility] Comment on above: Performed By: #### CBC #### [facility] [address] [address] [address] Yara Chavez MONO # 0.3 103/ul Normal 0.3-0.8 [facility] Comment on above: Performed By: #### CBC #### [facility] [address] [place] [address] Dr. Yara Chavez Monocytes/100 WBC (Bld) 9.5 % Normal 1.7-12.0 [facility] Comment on above: Performed By: #### CBC #### [facility] [address] [place] [address] Dr. Yara Chavez NEUT # 1.5 103/ul Normal 1.4-6.5 [facility] Comment on above: Performed By: #### CBC #### [facility] [address] [place] [address] Dr. Yara Chavez Neutrophils/100 WBC (Bld) 52.4 % Normal 43.0-75.0 [facility] Comment on above: Performed By: #### CBC #### [facility] [address] [address] [address] Yara Chavez Platelet mean volume (Bld) [Entitic vol] 10.1 fL Normal 9.5-13.5 [facility] Comment on above: Performed By: #### CBC #### [facility] [address] [place] [address] Dr. Yara Chavez PLT 195 103/ul Normal 150-450 [facility] Comment on above: Performed By: #### CBC #### [facility] [address] [address] [address] Yara Chavez RBC 4.39 106/ul Critically low 4.70-6.10 [facility] Comment on above: Performed By: #### CBC #### [facility] [address] [address] [address] Yara Chavez WBC 2.9 103/ul Critically low 4.0-11.0 [facility] Comment on above: Performed By: #### CBC #### [facility] [address] [address] [address] Yara Chvaez LIPID PROFILEon 11-24-2021 CHOL-HDL RATIO NORM SEE BELOW Normal [facility] Comment on above: Result Comment: 3.3 - 4.4 LOW RISK 4.4 - 7.1 AVERAGE RISK 7.1 - 11.0 MODERATE RISK >11.0 HIGH RISK Performed By: #### A LT, BMP, LIPID #### [facility] [address] [place] [address] Dr. Yara Chavez Cholesterol [Mass/Vol] 124 mg/dL Normal <=200 [facility] Comment on above: Performed By: #### ALT, BMP, LIPID #### [facility] [address] [place] [address] Dr. Yara Chavez Cholesterol in HDL [Mass/Vol] 41 mg/dL Normal 40-60 [facility] Comment on above: Performed By: #### ALT, BMP, LIPID #### [facility] [address] [address] [address] Yara Chavez Cholesterol in LDL [Mass/Vol] 56.8 mg/dL Normal [facility] Comment on above: Performed By: #### ALT, BMP, LIPID #### [facility] [address] [address] [address] Yara Chavez Cholesterol.tota l/Cholesterol in HDL [Mass ratio] 3.0 {ratio} Normal [facility] Comment on above: Performed By: #### ALT, BMP, LIPID #### [facility] [address] [address] [address] Yara Chavez HDL NORMAL > or = 60 mg/dl - LO W CARDIOVASCULAR RISK <40 mg/dl - HIGH CARDIOVASCULAR RISK Normal [facility] Comment on above: Performed By: #### ALT, BMP, LIPID #### [facility] [address] [address] [address] Yara Chavez LDL CALC NORMAL SEE BELOW Normal [facility] Comment on above: Result Comment: <100 mg/dl OPTIMAL 100 - 129 mg/dl NEAR OR ABOVE OPTIMAL 130 - 159 mg/dl BORDERLINE HIGH 160 - 189 mg/dl HIGH >190 mg/dl VERY HIGH Performed By: #### A LT, BMP, LIPID #### [facility] [address] [address] [address] Yara Chavez Triglyceride [Mass/Vol] 131 mg/dL Normal <=150 [facility] Comment on above: Performed By: #### ALT, BMP, LIPID #### [facility] [address] [address] [address] Yara Chavez VLDL CALC 26.2 mg/dL Normal [facility] Comment on above: Performed By: #### ALT, BMP, LIPID #### [facility] [address] [address] [address] Yara Chavez MICROALBUMIN, RAND URon 07-2 mALB 1.4 mg/L Normal <=30.0 [facility] Comment on above: Performed By: #### MALBR #### [facility] [address] [address] [address] Yara Chavez PROF CHEM 8 (BAS METB)on Anion gap [Moles/Vol] 10.1 mmol/L Normal [facility] Comment on above: Performed By: #### ALT, BMP, LIPID #### [facility] [address] [address] [address] Yara Chavez Calcium [Mass/Vol] 9.0 mg/dL Normal 8.5-10.1 [facility] Comment on above: Performed By: #### ALT, BMP, LIPID #### [facility] [address] [address] [address] Yara Chavez Chloride [Moles/Vol] 105 mmol/L Normal 98-107 [facility] Comment on above: Performed By: #### ALT, BMP, LIPID #### [facility] [address] [address] [address] Yara Chavez CO2 [Moles/Vol] 31.3 mmol/L Normal 21.0-32.0 [facility] Comment on above: Performed By: #### ALT, BMP, LIPID #### [facility] [address] [address] [address] Yara Cahvez Creatinine [Mass/Vol] 1.24 mg/dL Normal 0.70-1.30 [facility] Comment on above: Performed By: #### ALT, BMP, LIPID #### [facility] [address] [address] [address] Yara Chavez EGFR-AF WALLISIAN >60 Normal >=60 [facility] Comment on above: Performed By: #### ALT, BMP, LIPID #### [facility] [address] [address] [address] Yara Chavez EGFR-NON AF WALLISIAN 58 mL/min/1.73m2 Critically low >=60 [facility] Comment on above: Performed By: #### ALT, BMP, LIPID #### [facility] [address] [address] [address] Yara Chavez Glucose [Mass/Vol] 102 mg/dL Normal 74-106 [facility] Comment on above: Performed By: #### ALT, BMP, LIPID #### [facility] [address] [address] [address] Yara Chavez Potassium [Moles/Vol] 4.4 mmol/L Normal 3.5-5.1 [facility] Comment on above: Performed By: #### ALT, BMP, LIPID #### [facility] [address] [address] [address] Yara Chavez Sodium [Moles/Vol] 142 mmol/L Normal 136-145 [facility] Comment on above: Performed By: #### ALT, BMP, LIPID #### [facility] [address] [address] [address] Yara Chavez Urea nitrogen [Mass/Vol] 22.0 mg/dL Critically high 7.0-18.0 [facility] Comment on above: Performed By: #### ALT, BMP, LIPID #### [facility] [address] [place] [address] Dr. Yara Chavez Urea nitrogen/Creatin ine [Mass ratio] 17.7 mg/mg Normal [facility] Comment on above: Performed By: #### ALT, BMP, LIPID #### [facility] [address] [place] [address] Dr. Yara Chavez SGPTon 11-24-2021 ALT [Catalytic activity/Vol] 48 U/L Normal 16-63 [facility] Comment on above: Performed By: #### ALT, BMP, LIPID #### [facility] [address] [place] [address] Dr. Yara Chavez GLYCOHEMOGLOBIN A1Con 2021 ADA RECOMMENDATION SEE BELOW Normal [facility] Comment on above: Result Comment: ADA RECOMMENDED LIMIT 4. 0 - 6.0 ADA THERAPEUTIC TARGET < 7.0 ACTION SUGGESTED > 7.0 Performed By: #### A 1C #### [facility] [address] [place] [address] Dr. Yara Chavez Glucose [Mass/Vol] 169 mg/dL Normal [facility] Comment on above: Performed By: #### A1C #### [facility] [address] [place] [address] Dr. Yara Chavez HbA1c (Bld) [Mass fraction] 7.5 % Critically high 4.5-6.2 [facility] Comment on above: Performed By: #### A1C #### [facility] [address] [place] [address] Dr. Yara Chavez PROF CHEM 8 (BAS METB)on Anion gap [Moles/Vol] 12.0 mmol/L Normal [facility] Comment on above: Performed By: #### BMP #### [facility] [address] [place] [address] Dr. Yara Chavez Calcium [Mass/Vol] 8.7 mg/dL Normal 8.5-10.1 [facility] Comment on above: Performed By: #### BMP #### [facility] [address] [address] [address] Yara Chavez Chloride [Moles/Vol] 103 mmol/L Normal 98-107 [facility] Comment on above: Performed By: #### BMP #### [facility] [address] [address] [address] Yara Chavez CO2 [Moles/Vol] 29.1 mmol/L Normal 21.0-32.0 [facility] Comment on above: Performed By: #### BMP #### [facility] [address] [address] [address] Yara Chavez Creatinine [Mass/Vol] 1.17 mg/dL Normal 0.70-1.30 [facility] Comment on above: Performed By: #### BMP #### [facility] [address] [place] [address] Dr. Yara Chavez EGFR-AF WALLISIAN >60 Normal >=60 [facility] Comment on above: Performed By: #### BMP #### [facility] [address] [place] [address] Dr. Yara Chavez EGFR-NON AF WALLISIAN >60 Normal >=60 [facility] Comment on above: Performed By: #### BMP #### [facility] [address] [address] [address] Yara Chavez Glucose [Mass/Vol] 144 mg/dL Critically high 74-106 [facility] Comment on above: Performed By: #### BMP #### [facility] [address] [address] [address] Yara Chavez Potassium [Moles/Vol] 4.1 mmol/L Normal 3.5-5.1 [facility] Comment on above: Performed By: #### BMP #### [facility] [address] [place] [address] Dr. Yara Chavez Sodium [Moles/Vol] 140 mmol/L Normal 136-145 [facility] Comment on above: Performed By: #### BMP #### [facility] [address] [address] [address] Yara Chavez Urea nitrogen [Mass/Vol] 18.0 mg/dL Normal 7.0-18.0 [facility] Comment on above: Performed By: #### BMP #### [facility] [address] [address] [address] Yara Chavez Urea nitrogen/Creatin ine [Mass ratio] 15.4 mg/mg Normal [facility] Comment on above: Performed By: #### BMP #### [facility] [address] [address] [address] Yara Chavez CNOVSPon 04-02-2019 CNOVSP Visit (SP) Office ( [facility]) BRITTNEYLISA ([id number]) 1950 M Date Time Provider Department 04/02/19 11:15 AM FRANCIS HEBERT During your visit today, we recorded the following information about you: Temperature Pulse Respiration Blood pressure 98.1 degrees 72/minute 16/minute 131/69 Weight Height 80.5 kg 1.778 m Francis Hebert DO 04/03/2019 1:15 PM Signed PATIENT NAME: Lisa Lugo REFERRING PHYSICIAN: Theron Mendoza MD ([facility]) [address] [address] PRIMARY CARE PHYSICIAN: Theron Mendoza MD CHIEF [...] PANEL - CBC + DIFF (FOR REMOTE [facility] USE) - IRON + TIBC - FERRITIN BLD - VITAMIN B12 BLOOD - FOLATE SERUM - METHYLMALONIC ACID - HEP REMOTE PANEL BL - SED RATE WESTERGREN Return labs today. f/u 6 mos. . [...] normal limits. A single laboratory tests from 2014 also shows white blood cells were 3.5 [...] questions satisfactorily.. Francois Hebert D.O. Medical Oncologist [facility] [place], [place] Referring Provider: THERON MENDOZA [[id number]] Allergies As of Date: 04/02/2019 (No Known Allergies) Date Reviewed: 04/02/2019 Reviewed by: Dorene Germain - Fully Assessed Reason for Visit: abdnormal lab [Other] Cmt: new patient consultation Primary Visit Diagnosis:Leukopenia, unspecified type [D72.819] Other Visit Diagnosis:Abnormal finding of blood chemistry, unspecified [R79.9] Order(s):PROTEIN ELECTROPHORESIS W/INTERP [SQSEPG] Order #: [id number] FUTURE MONOCLONAL PROTEIN, SERUM (BLOOD) [SQSERMPA] Order #: [id number] FUTURE IMMUNOGLOBULINS SHANIA [SQSERIMM] Order #: [id number] FUTURE LD LACTATE DEHYDRO [SQLD6] Order #: [id number] FUTURE COMP METABOLIC PANEL [SQCMP] Order #: [id number] FUTURE CBC + DIFF (FOR REMOTE [facility] USE) [SQRCBCDF] Order #: [id number] FUTURE IRON + TIBC [SQIRON] Order #: [id number] FUTURE FERRITIN BLD [SQFERR] Order #: [id number] FUTURE VITAMIN B12 BLOOD [SQB12] Order #: [id number] FUTURE FOLATE SERUM [SQSERFOL] Order #: [id number] FUTURE METHYLMALONIC ACID [SQMMA] Order #: [id number] FUTURE HEP REMOTE PANEL BL [SQHREMOP] Order #: [id number] FUTURE SED RATE WESTERGREN [SQWSR] Order #: [id number] FUTURE Disposition: Return labs today. f/u 6 [...] by FRANCIS HEBERT DO on 04/03/19 Normal [facility] Comp Metabolic Panelon 04-02 Albumin [Mass/Vol] 4.4 g/dL Normal 3.9-4.9 [facility] ALP [Catalytic activity/Vol] 102 U/L Normal 38-113 [facility] ALT [Catalytic activity/Vol] 53 U/L Normal 10-54 [facility] Anion gap [Moles/Vol] 13 mmol/L Normal 9-18 [facility] AST [Catalytic activity/Vol] 31 U/L Normal 14-40 [facility] Bilirubin [Mass/Vol] 0.6 mg/dL Normal 0.2-1.3 [facility] Calcium [Mass/Vol] 9.6 mg/dL Normal 8.5-10.2 [facility] Chloride [Moles/Vol] 98 mmol/L Normal 97-105 [facility] CO2 [Moles/Vol] 24 mmol/L Normal 22-30 [facility] Creatinine [Mass/Vol] 0.94 mg/dL Normal 0.73-1.22 [facility] eGFR- Amer. >60 Normal [facility] GFR/1.73 sq M predicted among non-blacks MDRD (S/P/Bld) [Vol rate/Area] mL/min/{1.73_m2} Normal [facility] Comment on above: Result Comment: eGFR (Estimated GFR) Uni ts of measure: mL/min/1.73 meters squared eGFR is derived from the reexpressed MDRD Study equation using the following parameters: serum creatinine, age, gender and race. The creatinine assay has been calibrated to be traceable to IDMS. An eGFR <60 mL/min/1.73m2 for >3 months is consistent with chronic kidney disease. Refer to KDOQI guidelines for clinical interpretation. In patients with unstable renal function, e.g. those with acute kidney injury, the eGFR may not accurately reflect actual GFR. Glucose [Mass/Vol] 257 mg/dL High 74-99 [facility] Comment on above: Result Comment: The [place] Diabetes As sociation (ADA) provides guidance for [...] Standards of Medical Care in Diabetes 2016, [place] [employer] Association. Diabetes Care. 2016.39(Suppl 1). Potassium [Moles/Vol] 4.8 mmol/L Normal 3.7-5.1 [facility] Protein [Mass/Vol] 7.4 g/dL Normal 6.3-8.0 [facility] Sodium [Moles/Vol] 135 mmol/L Low 136-144 [facility] Urea nitrogen [Mass/Vol] 19 mg/dL Normal 9-24 [facility] Ferritinon 04-02-2019 Ferritin [Mass/Vol] 279.0 ng/mL Normal 30.3-565.7 [facility] Comment on above: Performed By: #### WSR, B12, SERFOL, IRO N, FERR, SERIMM, HREMOP, SERMPA, SEPG, MMA #### [facility] [address] [address] Folate, Serumon 04-02-2019 Folate [Mass/Vol] ng/mL Normal >4.7 [facility] Comment on above: Result Comment: A result of > 20 ng/mL i s not necessarily indicative of a pathologic or treatable condition: it reflects a limitation of the test methodology. Assay reference range: 4.8 to 24.2 ng/mL. Suitable for detection of folate deficiency. Reference: Folate III (Folate III) [package insert V 2.0 [place] Citizen]. [facility], [place], [place]: February 2015. Performed By: #### W SR, B12, SERFOL, IRON, FERR, SERIMM, HREMOP, SERMPA, SEPG, MMA #### [facility] [employer] [address] [address] Hepatitis Remote Panelon HBsAg Negative Normal Negative [facility] Comment on above: Performed By: #### WSR, B12, SERFOL, IRO N, FERR, SERIMM, HREMOP, SERMPA, SEPG, MMA #### [facility] [employer] [address] [address] Hep B Core Ab,Total Negative Normal Negative [facility] Comment on above: Performed By: #### WSR, B12, SERFOL, IRO N, FERR, SERIMM, HREMOP, SERMPA, SEPG, MMA #### [id number] [phone] Hepatitis C Ab IA Negative Normal Negative [facility] Comment on above: Performed By: #### WSR, B12, SERFOL, IRO N, FERR, SERIMM, HREMOP, SERMPA, SEPG, MMA #### [id number] [phone] HepB Surface Ab,Qual Negative Normal Negative [facility] Comment on above: Result Comment: NEGATIVE Performed By: #### W SR, B12, SERFOL, IRON, FERR, SERIMM, HREMOP, SERMPA, SEPG, MMA #### [address] [phone] Immunoglobulins GAMon 2018 IgA [Mass/Vol] 323 mg/dL Normal 78-391 [facility] Comment on above: Performed By: #### WSR, B12, SERFOL, IRO N, FERR, SERIMM, HREMOP, SERMPA, SEPG, MMA #### [address] [phone] IgG [Mass/Vol] 981 mg/dL Normal 717-1411 [facility] Comment on above: Performed By: #### WSR, B12, SERFOL, IRO N, FERR, SERIMM, HREMOP, SERMPA, SEPG, MMA #### [id number] [phone] IgM [Mass/Vol] 133 mg/dL Normal 53-334 [facility] Comment on above: Performed By: #### WSR, B12, SERFOL, IRO N, FERR, SERIMM, HREMOP, SERMPA, SEPG, MMA #### [id number] [phone] Iron and TIBCon 04-02-2019 Iron [Mass/Vol] 80 ug/dL Normal 41-186 [facility] Comment on above: Performed By: #### WSR, B12, SERFOL, IRO N, FERR, SERIMM, HREMOP, SERMPA, SEPG, MMA #### [id number] [phone] TIBC 247 ug/dL Normal 232-386 [facility] Comment on above: Performed By: #### WSR, B12, SERFOL, IRO N, FERR, SERIMM, HREMOP, SERMPA, SEPG, MMA #### [id number] [phone] Transferrin Saturatn 32 % Normal 15-57 [facility] Comment on above: Performed By: #### WSR, B12, SERFOL, IRO N, FERR, SERIMM, HREMOP, SERMPA, SEPG, MMA #### [address] [address] LDon 04-02-2019 LD 131 U/L Low 135-225 [facility] Comment on above: Performed By: #### WSR, B12, SERFOL, IRO N, FERR, SERIMM, HREMOP, SERMPA, SEPG, MMA #### [address] [address] Methylmalonic Acidon 019 Methylmalonic Acid 232 nmol/L Normal 79-376 [facility] Comment on above: Result Comment: This test was developed and its performance characteristics determined by [facility]'s [employer] Stephen [facility] [place] ( [facility]). It has not been cleared or approved by the FDA. [facility] is regulated under CLIA as qualified to perform high complexity testing. This test is used for clinical purposes. It should not be regarded as investigational or for research. Performed By: #### W SR, B12, SERFOL, IRON, FERR, SERIMM, HREMOP, SERMPA, SEPG, MMA ####[facility] AveCDelaplane, [place] [phone] Monclnl Protein, Seron 04-02 K/L Ratio, Serum 1.88 High 0.26-1.65 [facility] Comment on above: Performed By: #### WSR, B12, SERFOL, IRO N, FERR, SERIMM, HREMOP, SERMPA, SEPG, MMA ####[address] [address] [address] AveClevelGlenm[place], [place] [phone] [place], Free, Serum 47.1 mg/L High 3.30-19.40 [facility] Comment on above: Result Comment: Test performed by an imm unoturbidimetric assay on Optilite instrument from [employer]. Immunoglobulin free light chain assay results should be interpreted in conjunction with other tests and in correlation with clinical picture. Performed By: #### W SR, B12, SERFOL, IRON, FERR, SERIMM, HREMOP, SERMPA, SEPG, MMA ####[place] [address] [address], [place] [phone] Lambda, Free, Serum 25.0 mg/L Normal 5.7-26.3 [facility] Comment on above: Result Comment: Test performed by an imm unoturbidimetric assay on Optilite instrument from [facility]. Immunoglobulin free light chain assay results should be interpreted in conjunction with other tests and in correlation with clinical picture. Performed By: #### W SR, B12, SERFOL, IRON, FERR, SERIMM, HREMOP, SERMPA, SEPG, MMA ####[place] [id number], [place] [phone] MPA Serum IgA 336 mg/dL Normal 78-391 [facility] Comment on above: Performed By: #### WSR, B12, SERFOL, IRO N, FERR, SERIMM, HREMOP, SERMPA, SEPG, MMA ####[place] [address] AveClevelG[place], [place] [phone] MPA Serum IgG 950 mg/dL Normal 717-1411 [facility] Comment on above: Performed By: #### WSR, B12, SERFOL, IRO N, FERR, SERIMM, HREMOP, SERMPA, SEPG, MMA ####[place] [id number] [place] [address], [place] [phone] MPA Serum IgM 136 mg/dL Normal 53-334 [facility] Comment on above: Performed By: #### WSR, B12, SERFOL, IRO N, FERR, SERIMM, HREMOP, SERMPA, SEPG, MMA ####[place] [address], [place] [phone] Protein [Mass/Vol] No M protein is identified. Normal No M protein is identified . [facility] Comment on above: Performed By: #### WSR, B12, SERFOL, IRO N, FERR, SERIMM, HREMOP, SERMPA, SEPG, MMA ####[place] [address] [place], [place] [phone] Staff Review Reviewed by Chadd Ackerman MD ([id number]) Normal [facility] Comment on above: Performed By: #### WSR, B12, SERFOL, IRO N, FERR, SERIMM, HREMOP, SERMPA, SEPG, MMA ####[address] [phone] PROGRESSon 04-02-2019 PROGRESS HNO ID: [id number] Author: Francis Hebert Service: ? Author Type: Physician Type: Progress Notes Filed: 04/03/2019 1:15 PM Note Text: PATIENT NAME: Lisa Lugo REFERRING PHYSICIAN: Theron Mendoza MD ([facility]) [address] [facility] [address] PRIMARY CARE PHYSICIAN: Theron Mendoza MD CHIEF [...] PANEL - CBC + DIFF (FOR REMOTE [facility] USE) - IRON + TIBC - FERRITIN BLD - VITAMIN B12 BLOOD - FOLATE SERUM - METHYLMALONIC ACID - HEP REMOTE PANEL BL - SED RATE [facility] Return labs today. f/u 6 mos. . [...] questions satisfactorily.. Francois Hebert D.O. Medical Oncologist [place], [place] Normal [facility] Protein Electrophor.on 04-02 Albumin [Mass/Vol] 3.79 g/dL Normal 3.37-4.23 [facility] Comment on above: Performed By: #### WSR, B12, SERFOL, IRO N, FERR, SERIMM, HREMOP, SERMPA, SEPG, MMA ####[place] [id number] [place] [address]C[place] [phone] Alpha 1 Globulin 0.31 gm/dL Normal 0.18-0.31 [facility] Comment on above: Performed By: #### WSR, B12, SERFOL, IRO N, FERR, SERIMM, HREMOP, SERMPA, SEPG, MMA ####[place] [address] [address] [address] Alpha 2 Globulin 0.96 gm/dL Normal 0.52-0.97 [facility] Comment on above: Performed By: #### WSR, B12, SERFOL, IRO N, FERR, SERIMM, HREMOP, SERMPA, SEPG, MMA ####[place] [address] [address] [place] [phone] Beta Globulin 1.17 gm/dL Normal 0.84-1.36 [facility] Comment on above: Performed By: #### WSR, B12, SERFOL, IRO N, FERR, SERIMM, HREMOP, SERMPA, SEPG, MMA ####[place] [address] [address] [place] [phone] Gamma Globulin 0.97 gm/dL Normal 0.70-1.44 [facility] Comment on above: Performed By: #### WSR, B12, SERFOL, IRO N, FERR, SERIMM, HREMOP, SERMPA, SEPG, MMA ####[place] [phone]C[place] [phone] Interpretation SEE COMMENT Normal [facility] Comment on above: Result Comment: No definitive M protein is identified on protein electrophoresis. Performed By: #### W SR, B12, SERFOL, IRON, FERR, SERIMM, HREMOP, SERMPA, SEPG, MMA ####[place] [address] [address], [place] [phone] M Guy Concentratn 0.00 gm/dL Normal 0.00 [facility] Comment on above: Performed By: #### WSR, B12, SERFOL, IRO N, FERR, SERIMM, HREMOP, SERMPA, SEPG, MMA ####[place] [address] [place] [phone] Protein [Mass/Vol] 7.2 g/dL Normal 6.0-8.4 [facility] Comment on above: Performed By: #### WSR, B12, SERFOL, IRO N, FERR, SERIMM, HREMOP, SERMPA, SEPG, MMA ####[place] [address] [address] [place] [phone] Protein [Mass/Vol] N/A Normal [facility] Comment on above: Performed By: #### WSR, B12, SERFOL, IRO N, FERR, SERIMM, HREMOP, SERMPA, SEPG, MMA ####[place] [address] [place] [phone] SPE Staff Review Reviewed by Chadd Ackerman MD ([id number]) Normal [facility] Comment on above: Performed By: #### WSR, B12, SERFOL, IRO N, FERR, SERIMM, HREMOP, SERMPA, SEPG, MMA ####[place] [address] [place] [phone] Remote CBCDIF (for [facility] use o nly)on 04-02-2019 Abs Baso <0.03 Normal 0.00-0.10 [facility] Abs [place] 0.48 k/uL Normal 0.00-0.86 [facility] Abs Neut 4.30 k/uL Normal 1.45-7.50 [facility] Basophils/100 WBC (Bld) 0.2 % Normal [facility] Eosinophils (Bld) [#/Vol] 0.04 10*3/uL Normal 0.00-0.45 [facility] Eosinophils/100 WBC (Bld) 0.7 % Normal [facility] Erythrocyte distribution width (RBC) [Ratio] 13.9 % Normal 11.5-15.0 [facility] Hematocrit (Bld) [Volume fraction] 39.6 % Normal 39.0-51.0 [facility] Hemoglobin (Bld) [Mass/Vol] 12.6 g/dL Low 13.0-17.0 [facility] Lymphocytes (Bld) [#/Vol] 0.84 10*3/uL Low 1.00-4.00 [facility] Lymphocytes/100 WBC (Bld) 14.8 % Normal [facility] MCH (RBC) [Entitic mass] 27.4 pG Normal 26.0-34.0 [facility] MCHC (RBC) [Mass/Vol] 31.8 g/dL Normal 30.5-36.0 [facility] MCV (RBC) [Entitic vol] 86.1 fL Normal 80.0-100.0 [facility] Monocytes/100 WBC (Bld) 8.5 % Normal [facility] Neutrophils/100 WBC (Bld) 75.8 % Normal [facility] Platelet mean volume (Bld) [Entitic vol] 9.7 fL Normal 9.0-12.7 [facility] Platelets (Bld) [#/Vol] 243 10*3/uL Normal 150-400 [facility] RBC (Bld) [#/Vol] 4.60 10*6/uL Normal 4.20-6.00 [facility] WBC (Bld) [#/Vol] 5.67 10*3/uL Normal 3.70-11.00 [facility] Sed Rate Westergrenon 2018 Sed Rate Westergren 41 mm/hr High 0-15 [facility] Comment on above: Performed By: #### WSR, B12, SERFOL, IRO N, FERR, SERIMM, HREMOP, SERMPA, SEPG, MMA #### [facility] [address] [place], [place] [address] Vitamin B12on 04-02-2019 Cobalamin (Vitamin B12) [Mass/Vol] 595 pg/mL Normal 232-1245 [facility] Comment on above: Performed By: #### WSR, B12, SERFOL, IRO N, FERR, SERIMM, HREMOP, SERMPA, SEPG, MMA #### [facility] [address] [place], [place] [address] Cardiovascular Lab Reporton 04-26-2017 Cardiovascular Lab Report [facility] Patient Name: Lisa Lugo [facility] MR #: [id number] Physician: Jenny Parsons M.D.Medicine Service Date: 04/25/2017Division of Birthdate: 2Cardiology Room #: 3CD [id number] CardiovascularSerMichael [place] [phone] [place], [place] [address]Azjjz Fax Cardiovascular Laboratory ReportINDICATION: Mr. Lisa Lugo is a 66-year-old man, known to havecoronary artery disease status post multiple stenting procedures in [facility]. Recently, he presented with transient ST-segment elevation in thesetting of ongoing chest pain. He underwent cardiac catheterization anddrug-eluting stenting of the distal right coronary artery de rachel stenosisas well as drug-eluting stenting of the proximal right coronary arteryin-stent restenosis. At that time, he was found to have muad-snwhbab-pkrmx restenosis in the mid LAD. He is [...] angiography was performedfollowed by upsizing to a 6-Sammarinese x 11 cm sheath. Heparin wasadministered intravenously and therapeutic ACT confirmed during theprocedure. A 6-Sammarinese XB 3.5 guiding catheter was advanced and [...] to the Prowater wire.Angiography was performed. NC GL 2ours [place] 2.5 x 15 mm noncompliantballoon was then [...] 04/25/2017/09:47 A/Jenny Coppola M.D.Date Trans: 04/26/2017 02:28 A/[id number]: Theron Mendoza D.O. [address] [place] [phone] Normal [facility] POC GLUCOSE LABon 04-26-2017 Glucose mass conc 99 mg/dL Normal 70-100 [facility] Comment on above: Performed By: #### [id number] ####[facility] CBC COMPLETE BLOOD COUNTon 1 06-26-2016 Erythrocyte distribution width Auto Ratio (RBC) 14.3 % Normal 11.5-16.9 [facility] Comment on above: Order Comment: Yes: Add to Previous draw if able Performed By: #### 5 0608 ####[facility] [facility].[address] Erythrocytes (RBC) 4.16 mill/mm3 Low 4.30-5.90 [facility] Comment on above: Order Comment: Yes: Add to Previous draw if able Performed By: #### 5 0608 ####[facility] [facility].[address] Hematocrit (HCT) 34.8 % Low 39.0-55.0 [facility] Comment on above: Order Comment: Yes: Add to Previous draw if able Performed By: #### 5 0608 ####[facility] Hemoglobin mass conc (Bld) 11.8 g/dL Low 13.9-16.3 [facility] Comment on above: Order Comment: Yes: Add to Previous draw if able Performed By: #### 5 0608 ####[facility] MCH 28.2 pg Normal 24.0-32.0 [facility] Comment on above: Order Comment: Yes: Add to Previous draw if able Performed By: #### 5 0608 ####[address] MCHC mass conc (RBC) 33.8 g/dL Normal 32.0-36.0 [facility] Comment on above: Order Comment: Yes: Add to Previous draw if able Performed By: #### 5 0608 ####[address] MCV 83.6 fL Normal 80.0-100.0 [facility] Comment on above: Order Comment: Yes: Add to Previous draw if able Performed By: #### 5 0608 ####[address] PLAT CNT 198 Thou/mm3 Normal 100-400 [facility] Comment on above: Order Comment: Yes: Add to Previous draw if able Performed By: #### 5 0608 ####[address] WBC (Leukocytes) 3.9 Thou/mm3 Low 4.0-10.0 [facility] Comment on above: Order Comment: Yes: Add to Previous draw if able Performed By: #### 5 0608 ####[facility] POC GLUCOSE LABon 04-25-2017 Glucose mass conc 232 mg/dL High 70-100 [facility] Comment on above: Performed By: #### [id number] ####[facility] [place] [address], [facility] Glucose mass conc 281 mg/dL High 70-100 [facility] Comment on above: Performed By: #### 117[address] ####[facility] Discharge Summaryon 04-20-20 17 Discharge Summary MR#: [id number] Admitted: 04/15/2017 Discharged: [...] history, requiring stentingin the past, presented to [facility] [place] initially with complaints ofrecurrent chest pain at rest. Initial EKG showed minor ST-segment elevationin the inferior leads, which resolved after administration of IV heparinand nitroglycerin. [facility]. Heunderwent left heart catheterization with successful balloon dilatation andstenting of 2 lesions. The patient recovered well postprocedure with nofurther recurrence of chest pain. Right femoral access site healed well.DISCHARGE CONDITION: Stable.DISCHARGE DISPOSITION: Home.DISCHARGE MEDICATIONS: Aspirin 81 mg daily, atenolol 25 mg daily, Njzgytiv204 mg daily, Clopidogrel 75 mg daily, Lantus [...] personal documentation from me. Date Dict: 04/19/2017/06:17 P/Arely Campos, ANIVALate Trans: 04/20/2017 07:36 A/Kehinde_[id number]: Theron Mendoza D.O. [address] [place] [phone] Tino Gunderson M.D. [facility]5 [place] [phone] Normal [facility] BASIC METABOLIC PANELon 12- Calcium 9.0 mg/dL Normal 8.6-10.3 [facility] Comment on above: Order Comment: No: Do not add to previou s draw Performed By: #### 1 69, 46525 ####[facility] [place] [address], [facility] Chloride 104 mmol/L Normal 98-107 [facility] Comment on above: Order Comment: No: Do not add to previou s draw Performed By: #### 1 69, 44461 ####[facility] [place] [address], [facility] CO2 24 mmol/L Normal 21-31 [facility] Comment on above: Order Comment: No: Do not add to previou s draw Performed By: #### 1 69, ####[facility] [place] [address], [facility] Creatinine 0.94 mg/dL Normal 0.70-1.30 [facility] Comment on above: Order Comment: No: Do not add to previou s draw Performed By: #### 1 69, 724[address] ####[facility] [place] [address], [facility] eGFR (black) mL/min/{1.73_m2} Normal >60 [facility] Comment on above: Order Comment: No: Do not add to previou s draw Performed By: #### 1 69, ####[facility] [facility] [place] [address], [facility] eGFR (non-black) mL/min/{1.73_m2} Normal >60 [facility] Comment on above: Order Comment: No: Do not add to previou s draw Performed By: #### 1 69, ####[facility] [facility] [address], [facility] Glucose mass conc 182 mg/dL High 70-100 [facility] Comment on above: Order Comment: No: Do not add to previou s draw Performed By: #### 1 69, ####[facility] [facility] [place] [address], [facility] Potassium molar conc 3.9 mmol/L Normal 3.5-5.1 [facility] Comment on above: Order Comment: No: Do not add to previou s draw Performed By: #### 1 69, 31255 ####[facility] [facility] [place] [address], [facility] Sodium 138 mmol/L Normal 136-145 [facility] Comment on above: Order Comment: No: Do not add to previou s draw Performed By: #### 1 69, 82648 ####[facility] Urea nitrogen 18 mg/dL Normal 7-25 [facility] Comment on above: Order Comment: No: Do not add to previou s draw Performed By: #### 1 0070, 23165 ####[facility] CBC COMPLETE BLOOD COUNTon 06-17-2016 Erythrocyte distribution width Auto Ratio (RBC) 14.7 % Normal 11.5-16.9 [facility] Comment on above: Order Comment: No: Do not add to previou s draw Performed By: #### 5 0608 ####[facility] Erythrocytes (RBC) 4.37 mill/mm3 Normal 4.30-5.90 [facility] Comment on above: Order Comment: No: Do not add to previou s draw Performed By: #### 5 0608 ####[facility] Hematocrit (HCT) 36.5 % Low 39.0-55.0 [facility] Comment on above: Order Comment: No: Do not add to previou s draw Performed By: #### 5 0608 ####[facility] Hemoglobin mass conc (Bld) 12.3 g/dL Low 13.9-16.3 [facility] Comment on above: Order Comment: No: Do not add to previou s draw Performed By: #### 5 0608 ####[facility] MCH 28.0 pg Normal 24.0-32.0 [facility] Comment on above: Order Comment: No: Do not add to previou s draw Performed By: #### 5 0608 ####[facility] MCHC mass conc (RBC) 33.5 g/dL Normal 32.0-36.0 [facility] Comment on above: Order Comment: No: Do not add to previou s draw Performed By: #### 5 0608 ####[address] MCV 83.5 fL Normal 80.0-100.0 [facility] Comment on above: Order Comment: No: Do not add to previou s draw Performed By: #### 5 0608 ####[place] [address]70 [address] PLAT CNT 167 Thou/mm3 Normal 100-400 [facility] Comment on above: Order Comment: No: Do not add to previou s draw Performed By: #### 5 0608 ####[address] WBC (Leukocytes) 4.7 Thou/mm3 Normal 4.0-10.0 [facility] Comment on above: Order Comment: No: Do not add to previou s draw Performed By: #### 5 0608 ####[address] Cardiovascular Lab Reporton 04-16-2017 Cardiovascular Lab Report [facility] Patient Name: Lisa Lugo [facility] MR #: [id number] Physician: Jenny Parsons M.D.Medicine Service Date: 04/15/2017Division of Birthdate: 2Cardiology Room #: 3AB [id number] CardiovascularServicesLevi [place] [address]Phone Fax Cardiovascular Laboratory ReportINDICATION: Lisa Lugo is a 66-year-old man, known to have coronaryartery disease, status post multiple stenting procedures in the past, whop[facility]ed to the [facility] [place] with recurrent chest pain at rest. Heinitially had minor ST elevations in the inferior leads that resolved afteradministration of intravenous heparin and nitroglycerin. Because ofrecurrent chest pain, he was transferred emergently to our [facility] fordiagnostic angiography and intervention.PROCEDURE:1. Bilateral selective coronary [...] EMS services. He was placed on the [facility] table.Both groin areas were prepped and draped in usual fashion. Usingmicropuncture technique, access in the right common femoral artery wasobtained and the inner cannula was advanced. Limited femoral angiographywas performed followed by upsizing to a 6-Sammarinese x 11 cm sheath. Bilateralselective coronary angiography was then performed using 6-Sammarinese JL4 andJR4 diagnostic catheters.Heparin was administered intravenously and therapeutic ACT confirmed duringthe procedure. A 6-Sammarinese JR4 guiding catheter was advanced and used toengage the right coronary ostium. A Prowater wire was advanced into thedistal RCA. Balloon dilatation in the distal RCA was performed usingEmerge 2.0 x 12 mm balloon and inflated at 12 atmospheres. Angiographyrevealed suboptimal results. This was treated using a PROMUS Premier 2.5 x16 mm drug-eluting stent, deployed at 11 atmospheres and post dilated usingNC Quantum [place] 2.5 x 8 mm noncompliant balloon inflated [...] in-stent restenosis was performed using NC Quantum [place] 3.0 x8 mm noncompliant balloon inflated at 14 atmospheres followed by additionaldilatation using NC Quantum [place] 3.0 x 12 mm noncompliant balloon inflatedat [...] 14atmospheres and post dilated using NC Quantum [place] 3.25 x 20 mmnoncompliant balloon inflated at 20 atmospheres throughout the length ofthe stent. Final angiography after administration of intracoronarynitroglycerin showed excellent result with reduction of the stenosis to 0%.No evidence of dissection or perforation. The guiding catheter wasremoved. The procedure was concluded. The right femoral arteriotomy wasmanaged with a 6-Sammarinese Perclose device with good hemostasis. The patientwas [...] 04/15/2017/06:14 P/Jenny Coppola M.D.Date Trans: 04/16/2017 07:04 A/[id number]: Theron Mendoza D.O. [address] [place] [phone] Tino Gunderson M.D. [facility]5 [facility] [address] Normal [facility] MAGNESIUM BLOODon 04-16-2017 Magnesium 1.9 mg/dL Normal 1.9-2.7 [facility] Comment on above: Order Comment: No: Do not add to previou s draw Performed By: #### 1 0070, 59175 ####[facility] [place] [address], [facility] POC GLUCOSE LABon 04-16-2017 Glucose mass conc 173 mg/dL High 70-100 [facility] Comment on above: Performed By: #### 677[address] ####[facility]3000 [facility] [place] [address], [facility] Glucose mass conc 228 mg/dL High 70-100 [facility] Comment on above: Performed By: #### 695[address] ####[facility] [facility] [place] [address], [facility] POC GLUCOSE LABon 04-15-2017 Glucose mass conc 214 mg/dL High 70-100 [facility] Comment on above: Performed By: #### 00880 ####[facility] Vital Signs Date Time Vital Sign Value Performing Clinician Facility 11-05-2023 13:43-0400 Body height 177.8 cm [facility] 11-05-2023 13:43-0400 Body mass index (BMI) [Ratio] 25.7 kg/m2 [facility] 11-05-2023 13:43-0400 Body weight 81.24 kg [facility] 11-05-2023 13:43-0400 Diastolic blood pressure 71 mm[Hg] [facility] 11-05-2023 13:43-0400 Heart rate 71 /min [facility] 11-05-2023 13:43-0400 Respiratory rate 12 /min [facility] 11-05-2023 13:43-0400 Systolic blood pressure 121 mm[Hg] [facility] 10-01-2023 12:35-0400 Blood Pressure Location DOMINGA SAK[facility] 10-01-2023 12:35-0400 Diastolic blood pressure 78 mm[Hg] DOMINGA SAKINA [facility] 10-01-2023 12:35-0400 Heart rate 72 /min DOMINGA SAKINA [facility] 10-01-2023 12:35-0400 Respiratory rate 16 /min DOMINGA SAK[facility] 10-01-2023 12:35-0400 Systolic blood pressure 137 mm[Hg] DOMINGA SAKINA [facility] 04-02-2023 09:30-0500 Body height 177.8 cm Theron Mendoza Other [employer] [facility] [employer] Other 04-02-2023 09:30-0500 Body mass index (BMI) [Ratio] 25.97 kg/m2 Theron Mendoza Other [employer] Other 04-02-2023 09:30-0500 Body weight 82.1 kg Theron Ball Other [employer] Other 04-02-2023 09:30-0500 Diastolic blood pressure 85 mm[Hg] Theron Ball Other [employer] Other 04-02-2023 09:30-0500 Respiratory rate 12 /min Theron Ball Other [employer] Other 04-02-2023 09:30-0500 Systolic blood pressure 135 mm[Hg] Theron Ball Other [employer] Other 11-01-2022 10:00-0400 Body height 177.8 cm Theron Ball Other [employer] Other 11-01-2022 10:00-0400 Body mass index (BMI) [Ratio] 25.77 kg/m2 Theron Ball Other [employer] Other 11-01-2022 10:00-0400 Body weight 81.47 kg Theron Ball Other [employer] Other 11-01-2022 10:00-0400 Diastolic blood pressure 71 mm[Hg] Theron Ball Other [facility] Other 11-01-2022 10:00-0400 Respiratory rate 12 /min Theron Ball Other [facility] Other 11-01-2022 10:00-0400 Systolic blood pressure 124 mm[Hg] Theron Ball Other [facility] Other 10-03-2022 13:45-0400 Body height 177.8 cm Theron Ball Other [facility] Other 10-03-2022 13:45-0400 Body mass index (BMI) [Ratio] 26.23 kg/m2 Theron Ball Other [facility] Other 10-03-2022 13:45-0400 Body weight 82.92 kg Theron Ball Other [facility] Other 10-03-2022 13:45-0400 Diastolic blood pressure 76 mm[Hg] Theron Ball Other [facility] Other 10-03-2022 13:45-0400 Respiratory rate 12 /min Theron Ball Other [facility] Other 10-03-2022 13:45-0400 Systolic blood pressure 160 mm[Hg] Theron Ball Other [facility] Other 11-20-2021 12:31-0400 Blood Pressure Location Tom [employer] [facility] 11-20-2021 12:31-0400 Diastolic blood pressure 80 mm[Hg] Tom ARGUETA [facility] 11-20-2021 12:31-0400 Heart rate 74 /min Tom ARGUETA [facility] 11-20-2021 12:31-0400 Respiratory rate 16 /min Tom ARGUETA [facility] 11-20-2021 12:31-0400 Systolic blood pressure 133 mm[Hg] Tom ARGUETA [facility] Encounters Encounter Date Encounter Type Care Provider Facility Start: 10-02-2024 ambulatory Tom ARGUETA Facili ty: [facility] Start: 11-05-2023 End: 11-05-2023 ambulatory [facility] Work Phone: Start: 11-05-2023 End: 11-05-2023 Patient encounter procedure [facility] Work Phone: Start: 11-05-2023 Non-patient / Non-visit [facility] Work Phone: Start: 10-01-2023 End: 10-01-2023 ambulatory DOMINGA PRESLEY Facility:[facility] Start: 10-01-2023 End: 10-01-2023 Patient encounter procedure DOMINGA PRESLEY [facility] Start: 09-17-2023 Non-patient / Non-visit [facility] Work Phone: Start: 04-03-2023 End: 04-03-2023 ambulatory Theron Mendoza Other [facility] Other Start: 04-03-2023 Telephone encounter Theron FERGUSON [facility] Start: 04-02-2023 End: 04-02-2023 ambulatory Theron Ball Other [facility] Other Start: 04-02-2023 Office outpatient vi sit 25 minutes Theron Ball [facility] Start: 04-01-2023 End: 04-01-2023 ambulatory Theron Ball Other [facility] Other Start: 04-01-2023 Telephone encounter Theron Guido FP [facility] Start: 01-07-2023 End: 01-07-2023 ambulatory Theron Ball Other [facility] Other Start: 01-07-2023 Telephone encounter Theron Mendoza [facility] Start: 11-01-2022 End: 11-01-2022 ambulatory Theron Mendoza Other [facility] Other Start: 11-01-2022 Patient encounter procedure Theron Mendoza [facility] Start: 10-03-2022 End: 10-03-2022 ambulatory Theron Mendoza Other [facility] Other Start: 10-03-2022 Office outpatient vi sit 15 minutes Theron Mendoza [facility] Start: 10-03-2022 Telephone encounter Theron FERGUSON [facility] Start: 04-30-[address] THERON MENDOZA Facili ty:[facility] Start: 03-29-2022 End: 03-30-[address] THERON MENDOZA Facility:[facility] Start: 11-25-2021 End: 11-26-[address] THERON MENDOZA Facility:[facility] Start: 11-24-2021 End: 11-25-[address] THERON MENDOZA Facility:[facility] Start: 11-22-2021 Adult health examination Theron Mendoza Other [facility] Other Start: 11-20-2021 End: 11-20-2021 Patient encounter procedure Tom ARGUETA [facility] Start: 09-14-2021 End: 09-15-[address] THERON MENDOZA Facility:[facility] Start: 09-10-2017 End: 09-11-2017 Ambulatory DEFAULT PHYSICIAN Facility:[facility] Start: 04-25-2017 End: 04-26-2017 Ambulatory PROVIDER UNKNOWN Facility:[facility] Start: 04-15-2017 End: 04-16-2017 Evaluation and management of inpatient THERON MENDOZA Facility:[facility] Procedures Date Procedure Procedure Detail Performing [...] Mendoza Other Start: 04-29-2013 Colonoscopy normal (finding) Tom ARGUETA Start: 10-11-2011 Transurethral prostatectomy Tomgiuliana ARGUETA Start: 09-14-2011 Cystoscopy Tom STUART Start: 05-02-2010 Cystoscopy Tom JEFF SANDOVALShahnaz Start: 04-18-2010 Cystoscopy Tom AGUILAR JAIMEShahnaz Start: 09-07-2008 Laser ablation of prostate Tomgiuliana ARGUETA Start: 08-31-2008 Cystoscopy Tom AGUILAR JAIMEShahnaz Start: 08-25-2008 Urodynamic studies Mary ARGUETA Start: 08-03-2008 Transrectal biopsy o f prostate using ultrasound guidance Tom ARGUETA Arthroscopy of knee Tom ARGUETA Depression screening Rasheed Mendoza Other Operation on heart Tom MARTINEZ Placement of stent i n cardiac conduit Tom ARGUETA Plan of Treatment Date Care Activity Detail Author XR Lumbar spine Views [facility] XR Pelvis [address] [facility] Immunizations Immunization Date Immunization Notes Care Provider Kaden rueda 04-03-2022 influenza virus vaccine, split virus (incl. purified surface antigen) Theron Mendoza Other [facility] Other 04-03-2022 influenza virus vaccine, unspecified formulation [facility] 04-03-2022 Prevnar 20 Theron Mendoza Other [facility] 03-28-2021 influenza virus vaccine, split virus (incl. purified surface antigen) Theron Mendoza Other [facility] Other 03-28-2021 influenza virus vaccine, unspecified formulation DOMINGA PRESLEY [facility] 04-03-2018 diphtheria, tetanus toxoids and acellular pertussis vaccine, unspecified formulation Theron Mendoza Other [facility] pneumococcal Conjuga te, unspecified formulation; Translations: [Need for prophylactic vaccination against Streptococcus pneumoniae (pneumococcus)] Theron Mendoza Other [facility] Other Payers Date Payer Category Payer Medicare [id number] 1958 Private Health Insurance [id number] 1958 Self-pay [id number] 1950 Unknown [id number] 2.16.84 [id number] 1950 Unknown [id number] 2.16.84 [id number] 1950 Unknown [id number] 2.16.84 [id number] 1950 Unknown [id number] 2.16.84 [id number] 1950 Unknown [id number] 2.16.84 [id number] 1950 Unknown [id number] 2.16.8 [id number] 1950 Unknown [id number] 2.16.8 [id number] Medicare [id number] Unknown Social History Date Type Detail Facility Start: 04-10-2021 End: 10-01-2023 Tobacco smoking status Ex-smoker (finding) [facility] Sex Assigned At Male [facility] Tobacco smoking status Never [facility] Start: 11-05-2023 Tobacco smoking stat [facility] Never smoked tobacco (finding) [facility] Start: 1950 Sex Assigned At Male [facility] Medical Equipment Procedure Code Equipment Code Equipment Origin al Text Equipment Identifier Dates BD Pen Needle Sh ort U/F 31G X 8 MM Start: 01-07-2023 Functional Status Date Assessment Result Facility 10-01-2023 Functional Status N/A [facility] 11-20-2021 Functional Status N/A [facility] Clinical Notes 11-20-2021 to 10-01-2023 Note Date & Type Note Facility 10-01-2023 Hospital Discharge instructions Patient Education 10/01/2023 11:40:57 Benign Prostatic Hyperplasia Benign Prostatic Hyperplasia Benign prostatic hyperplasia (BPH) [...] or symptoms? Symptoms of this condition include: Getting up often during the night to urinate. Needing to urinate frequently during the day. Difficulty starting urine flow. Decrease in size and strength of your urine stream. Leaking (dribbling) after urinating. Inability to pass urine. This needs immediate treatment. Inability to completely empty your bladder. Pain when you pass urine. This is more common if there is also an infection. Urinary tract infection (UTI). How is this diagnosed? This condition is diagnosed based on your medical history, a physical exam, and your symptoms. Tests will also be done, such as: A post-void bladder scan. This measures any amount of urine that may remain in your bladder after you finish urinating. A digital rectal exam. In a rectal exam, your health care provider checks your prostate by putting a lubricated, gloved finger into your rectum to feel the back of your prostate gland. This exam detects the size of your gland and any abnormal lumps or growths. An exam of your urine (urinalysis). A prostate specific antigen (PSA) screening. This is a blood test used to screen for prostate cancer. An ultrasound. This test uses sound waves [...] severity of your condition. Treatment may include: Observation and yearly exams. This may be the only treatment needed if your condition and symptoms are mild. Medicines to relieve your symptoms, including: ?Medicines to shrink the prostate. ?Medicines to relax the muscle of the prostate. Surgery in severe cases. Surgery may include: ?Prostatectomy. In this procedure, the prostate tissue is removed completely through an open incision or with a laparoscope or robotics. ?Transurethral resection of the prostate (TURP). In this procedure, a tool is inserted through the opening at the tip of the penis (urethra). It is used to cut away tissue of the inner core of the prostate. The pieces are removed through the same opening of the penis. This removes the blockage. ?Transurethral incision (TUIP). In this procedure, small cuts are made in the prostate. This lessens the prostate's pressure on the urethra. ?Transurethral microwave thermotherapy (TUMT). This procedure uses microwaves to create heat. The heat destroys and removes a small amount of prostate tissue. ?Transurethral needle ablation (TUNA). This procedure uses radio frequencies to destroy and remove a small amount of prostate tissue. ?Interstitial laser coagulation (ILC). This procedure uses a laser to destroy and remove a small amount of prostate tissue. ?Transurethral electrovaporization (TUVP). This procedure uses electrodes to destroy and remove a small amount of prostate tissue. ?Prostatic urethral lift. This procedure inserts an implant to push the lobes of the prostate away from the urethra. Follow these instructions at home: Take xgft-zro-jorfzky and prescription medicines only as told by your health care provider. Monitor your symptoms for any changes. Contact your health care provider with any changes. Avoid drinking large amounts of liquid before going to bed or out in public. Avoid or reduce how much caffeine or alcohol you drink. Give yourself time when you urinate. Keep all follow-up visits. This is important. Contact a health care provider if: You have unexplained back pain. Your symptoms do not get better with treatment. You develop side effects from the medicine you are taking. Your urine becomes very dark or has a bad smell. Your lower abdomen becomes distended and you have trouble passing urine. Get help right away if: You have a fever or chills. You suddenly cannot urinate. You feel light-headed or very dizzy, or you faint. There are large amounts of blood or clots in your urine. Your urinary problems become hard to manage. You develop moderate to severe low back or flank pain. The flank is the side of your body between the ribs and the hip. These symptoms may be an emergency. Get help right away. Call 911. Do not wait to see if the symptoms will go away. Do not drive yourself to the hospital. Summary Benign prostatic hyperplasia (BPH) is an enlarged prostate that is caused by the normal aging process. It is not caused by cancer. An enlarged prostate can press on the urethra. This can make it hard to pass urine. This condition is more likely to develop in men older than 50 years. Get help right away if you suddenly cannot urinate. This information is not intended to replace advice given to you by your health care provider. Make sure you discuss any questions you have with your health care provider. Document Revised: 11/01/2021 Document Reviewed: 11/01/2021 Fluid Patient Education 2022 amprice. Follow Up Care 09/17/2022 11:39:15 With:SAKINA RANDALL, DOMINGA Multani, URL Address: [address] [place] [address] When: Unknown [facility] 04-02-2023 Evaluation note Encounter Date Diagnosis Assessment [...] risk for cerebrovascular and cardiovascular disease. 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) [...] dyspnea, CP or lightheadedness _update office tomorrow [facility] Other 12-04-2023 Evaluation note* Encounter Date Diagnosis Assessment Notes Treatment Notes Treatment Clinical Notes Mar, Primary hypertension (ICD-10 - I10) Mar, Type 2 diabetes mellitus with hyperglycemia (ICD-10 - E11.65) Mar, Mixed hyperlipidemia (ICD-10 - E78.2) Mar, ASHD (arteriosclerotic heart disease) (ICD-10 - I25.10) Mar, High risk medication use (ICD-10 - Z79.899) [facility] Other 09-11-2023 Evaluation note* Encounter Date Diagnosis Assessment Notes Treatment Notes Treatment Clinical Notes Dec, Type 2 diabetes mellitus with hyperglycemia (ICD-10 - E11.65) [facility] Other 07-06-2023 Evaluation note* Encounter Date Diagnosis [...] risk for cerebrovascular and cardiovascular disease. 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 They are also encouraged to continue exercise to achieve/maintain a normal BMI. Oct, Screening PSA (prostate specific antigen) (ICD-10 - Z12.5) Completed w/ , normal [facility] Other 06-07-2023 Evaluation note* Encounter Date Diagnosis [...] to achieve/maintain a normal BMI. Avoid NSAIDs [facility] Other 07-25-2022 Hospital Discharge instructions Patient Education [...] Follow these instructions at home: Medicines Take fjeu-uww-xzyiziw and prescription medicines only as told by [...] or the blood stops without treatment. Take kxro-tlk-nhtimnz and prescription medicines only as told by your health care provider. Drink enough fluid to keep your urine clear or pale yellow. This information is not intended to replace advice given to you by your health care provider. Make sure you discuss any questions you have with your health care provider. Document Released: 04/15/2006 Document Revised: 09/09/2019 Document Reviewed: 05/18/2017 Fluid Patient Education 2020 amprice. Follow Up Care 09/21/2021 10:23:43 With:LIZABETH NUÑEZ, Tom Cohen, URL Address: [facility] [address], [place] [phone] When: Unknown [facility] evaluation + Plan note Future Appointments Appointment Date:11/28/2021 08:45:00 AM Scheduled Provider: Location:[facility] Appointment Type:Urology CALL PAT FT Appointment Date:12/12/2021 10:30:00 AM Scheduled Provider: Location:[facility] Appointment Type:Urology FT Appointment Date:04/13/2022 10:45:00 AM Scheduled Provider:Tom ARGUETA MD Location:[facility] Appointment Type:URO Office Visit [facility] evaluation + Plan note Future Appointments Appointment Date:10/02/2024 10:15:00 AM Scheduled Provider:Tom ARGUETA MD Location:[facility] Appointment Type:URO Office Visit Diagnostic Tests Pending * PSA Total 10/01/23 [facility] evaluation noteNo InformationNort [employer] Other Evaluation note* Diagnosis Onset Date Resolution Status Anemia acute ASHD (arteriosclerotic heart disease) acute GERD (gastroesophageal reflux disease) acute Hypercholesterolemia acute Hypertension acute Type 2 diabetes mellitus with hyperglycemia acute Medicare annual wellness visit, subsequent noneactive Screening for colon cancer n oneactive [facility] Work Phone: History general Narrative - Reported* Type Description Date Medical History ASHD Medical History HTN Medical History Hyperlipidemia Medical History T2DM Medical History GERD Surgical History ANGIOPLASTY Surgical History LHC PCI/stent RCA and LAD 2007 Surgical History LHC PCI/stent RCA 2016 Surgical History LHC PCI/stent OM and LCx 2016 Surgical History LHC PCI/stent RCA x 2 2017 Surgical History LHC PCI/stent LAD 2017 Surgical History TURP, TRUS/bx 2009 Surgical History Arthroscopy right knee 2005, 20 14 Surgical History Arthroscopy left knee 2004 Hospitalization History see surgical history [facility] Other Hospital course Narrative No data available for this section [facility] progress note No data available for this section [facility] reason for referral (narrative)* Reason Referral for interna l derangement right knee Diagnosis 1 Internal derangement of right knee (M23.91) Referral Organization [facility] Moustapha durant Referring Provider First Name Theron Referring Provider [...] Notes MRI right knee to be included [facility] Other Summary Purpose Family History Relationship Condition Age at Onset Recorded Date/T [place] father Unknown mother Unknown Advance Directives Advance Directive Response Recorded Date/ Time Advance Directives No November 04 1:27pm Chief Complaint and Reason for Visit Chief Complaint wellness Reason for Visit Anemia ASHD (arteriosclerotic heart disease) GERD (gastroesophageal reflux disease) Hypercholesterolemia Hypertension Type 2 diabetes mellitus with hyperglycemia Medicare annual wellness visit, subsequent Screening for colon cancer Additional Source Comments (unrecognized sect ion and content) No Status Records FoundNo Status Records FoundNo Status Records FoundNo Status Records Found INFORMATION SOURCE (unrecogn ized section and content) DATE CREATED AUTHOR 10/16/2017 [facility] DATE CREATED AUTHOR AUTHOR'S ORGANIZ ATION 04/04/2019 [facility] DATE CREATED AUTHOR AUTHOR'S ORGANIZ ATION 04/30/2022 [facility] DATE CREATED AUTHOR AUTHOR'S ORGANIZ ATION 10/02/2023 [facility] Care Team (unrecognized sect ion and content) Team Status: Active Member Role Status Dates Theron Mendoza , DO Primary Care Provider Active Team Status: Active Member Role Status Dates Theron Mendoza DO Primary Care Provider Active Start: September 17, 2023 Tom Argueta MD Attending Provider Active St art: September 17, 2023 Team Status: Active Member Role Status Dates Theron Mendoza DO Primary Care Provide r, Attending Provider Active Start: November 05, 2023 Team Status: Inactive Member Role Status Dates Theron Mendoza , DO Primary Care Provide r, Attending Provider Active Start: November 05, 2023 End: November 05, 2023 REASON FOR VISIT (unrecogniz ed section and content) Wants in [facility] [place] InformationNo InformationBlood Work?Check UpUpdate Goals (unrecognized section and content) Goals may be documented in a n alternate section FOR RECORDS PERTAINING TO PATIENTS WHO ARE [...] BE BASED ON THE PRIMARY CLINICAL RECORDS. [facility] [employer] [facility]. provides no warranty or guarantee of the accuracy or completeness of information in this document.
== END 2023-11-20 09:19 | disposition home or self-care (01) ==
LOC: MRI 09:19
PROVIDERS: PCP Internal Medicine; Visit Provider Anesthesiology
DX: M48.062 Spinal stenosis, lumbar region with neurogenic claudication (principal); M51.36 Other intervertebral disc degeneration, lumbar region
CPT/HCPCS: 72148

== ENCOUNTER 2023-12-02 13:36 | Outpatient (OUT) | payer MEDICARE, OTHER, SELFPAY ==
--- NOTE | 2023-12-02 15:05 | P.CN_ITS ---
Consult Note: HPI Data of Consult Patient: known to practice within the last 3 years Consult date: 12/02/23 Requesting Physician: Natali Weir MD Primary Care Provider: Theron Lora DO Consult Narrative Reason for consult: low back, bilateral leg pain Narrative: 73yom who presents for assessment. persistent pain that radiates into bilateral lower extremities. imaging reviewed, which is significant for moderate to severe stenosis at l4-5 and l5-s1. continues in physical therapy and provider directed home exercises, without lasting benefit. uses tylenol as needed. denies adverse med side effects. cc:: CC: Natali Weir MD Review of Systems ROS Status of ROS 10 or more systems reviewed and unremark able except as noted in history and below Meds Home Medications and Allergies Home Medications ?Medication ?Instructions ?Recorded ?Confirmed ?Type acetaminophen 650 mg 650 mg PO Q8H PRN pain 11/18/23 11/18/23 History tablet,extended release (8 Hour Pain Reliever) aspirin 81 mg capsule 81 mg PO DAILY 11/18/23 11/18/23 History atenolol 25 mg tablet mg 11/18/23 History atorvastatin 80 mg tablet mg 11/18/23 History clopidogrel 75 mg tablet mg 11/18/23 History insulin glargine 100 unit/mL (3 50 unit subcut 11/18/23 History mL) subcutaneous pen (Lantus Solostar U-100 Insulin) pantoprazole 40 mg tablet,delayed mg PO 11/18/23 History release pioglitazone 15 mg tablet mg 11/18/23 History Allergies Allergy/AdvReac Type Severity Reaction Status Date / Time No Known Drug Allergies Allergy Verified 11/18/23 15:28 Exam Narrative Exam Narrative: Psych-alert and oriented x 3. Attentive and appropriate, constitutionally normal, displays normal mood and affect per situation. There are no obvious deficits in memory, reasoning, or intellect.? Skin-no obvious rashes, bruising, erythema noted to the patient's area of pain.? Extremities- extremities are warm with minimal edema and palpable pulses. Lumbar-tenderness to palpation noted in the lumbar spine and paraspinal musculature. Pain is elicited with flexion, extension, and lateral rotation of the lumbar spine. Range of motion is diminished with these motions. Facet loading maneuvers are positive. Strength-noted to be unremarkable with the exception of decreased strength rated at 4 out of 5 in bilateral quadriceps femoris, anterior tibialis. Sensory-no notable sensory deficits in the bilateral lower extremities to touch or pinprick in all dermatomal distributions with the exception to decreased sensation to the bilateral L4, 5 dermatomal distribution Coordination remains intact.? Gait remains non-antalgic. Assessment and Plan Assessment and Plan (1) Lumbar stenosis with neurogenic claudication: Plan 73yom who presents for assessment. failed conservative measures, as noted. imaging reviewed, as noted. given symptoms and imaging, prudent to attempt bilateral l4-5 tfesi under fluoroscopic guidance. depending on response, may even benefit from bilateral l5-s1 tfesi under fluoroscopic guidance. she is in agreement. meds reviewed, no changes. follow up after procedure.
== END 2023-12-02 13:37 | disposition home or self-care (01) ==
LOC: PM 13:39
PROVIDERS: PCP Internal Medicine; Visit Provider Anesthesiology
DX: M48.062 Spinal stenosis, lumbar region with neurogenic claudication (principal)
CPT/HCPCS: G0463

== ENCOUNTER 2023-12-16 09:06 | Day surgery (SDC) | payer MEDICARE, OTHER, SELFPAY ==
[2023-12-16 09:52] VITALS: BP 134/77; PULSE 63; TEMP 36.3; O2SAT 97
[2023-12-16 10:06] LABS: Glucometer 236 mg/dL (74-106)
[2023-12-16 10:06] LABS: Glucometer 267 mg/dL (74-106)
[2023-12-16 10:28] VITALS: BP 155/71; PULSE 65; O2SAT 98
[2023-12-16] MEDS: IOHEXOL 240 MG/ML - 10 ML VIAL INJ (10:29)
[2023-12-16] MEDS: 0.9 % SODIUM CHLORIDE 10 ML SYRINGE - SALINE FLUSH INJ (10:29)
[2023-12-16] MEDS: BUPIVACAINE HCL 0.25% PF 25 MG/10 ML VIAL 2 ML INJ (10:29)
[2023-12-16] MEDS: LIDOCAINE HCL 2% 400 MG/20 ML MDV 3 ML INJ (10:30)
[2023-12-16] MEDS: TRIAMCINOLONE ACETONIDE 40 MG/ML VIAL 80 MG INJ (10:30)
[2023-12-16 10:33] VITALS: BP 132/63; PULSE 63; O2SAT 98
--- NOTE | 2023-12-16 10:35 | W.PM.PROCNOT ---
Date of procedure: 12/16/23 Pre-op diagnosis: Pain due to lumbar stenosis with neurogenic claudication Post-op diagnosis: same as pre-op Procedure: Procedure: Bilateral L4-5 transforaminal epidural steroid injection Medications: Bupivacaine 0.25% 2cc, lidocaine 2% 1cc, kenalog 80mg The patient was seen and examined in the preoperative holding area.? Informed consent was obtained and placed on the chart.? Patient was brought to the medical procedure unit and placed in the prone position where a timeout was completed verifying the correct patient, procedure site, position, and planned special equipment using sterile aseptic technique.? Under direct fluoroscopic visualization a 25-gauge Quincke tipped spinal needle was advanced at level left L4-5 to the designated neural foramen where contrast dye was injected to show adequate spread.? There was no evidence of vascular or adverse uptake.? Epidural spread was appreciated.? The above-mentioned injectate was then placed in a 1.5 mL aliquot preceded by negative aspiration.? The needle was removed. The same procedure, at the same level, was completed on the opposite side. ? Patient was taken to the postprocedural recovery area and monitored for an appropriate length of time before found suitable for discharge in the accompaniment of a responsible adult. Anesthesia: Local Surgeon: Natali Weir Pathology: none sent Condition: stable Disposition: no change
== END 2023-12-16 10:34 | disposition home or self-care (01) ==
LOC: SURGOUT 09:07
PROVIDERS: PCP Internal Medicine; Visit Provider Anesthesiology
DX: M48.062 Spinal stenosis, lumbar region with neurogenic claudication (principal); Z79.4 Long term (current) use of insulin; Z79.84 Long term (current) use of oral hypoglycemic drugs
CPT/HCPCS: 36415; 64483; 82948; J0665; J3301; Q9966

== ENCOUNTER 2023-12-24 13:10 | Outpatient (OUT) | payer MEDICARE, OTHER, SELFPAY ==
--- OUTSIDE RECORDS SUMMARY | 2023-12-24 13:35 | XMS_ITS | CCD ---
Author Organization [facility] Care Team Providers Care Surveillance Camera Technician Name Role Phone THERON MENDOZA Unavailable Unavailable TINO GUNDERSON Unavailable Unavailable MO SANCHEZ AM Unavailable Unavailable MO SANCHEZ AM Unavailable Unavailable SD Unavailable Unavailable UNKNOWN, PROVIDER Unavailable Unavailable UNKNOWN, PROVIDER Unavailable Unavailable UNKNOWN, PROVIDER Unavailable Unavailable MATT, THERON Unavailable Unavailable MATT, THERON Unavailable Unavailable PHYSICIAN, DEFAULT Unavailable Unavailable PHYSICIAN, DEFAULT Unavailable Unavailable MATT, THERON Unavailable Unavailable MATT, THERON Primary Care Physician [phone] MATT, DR CRUMP Primary Care Unavailable LIZABETH, DR OWUSU Admitting Unavailable ARGUETA, DR OWUSU Attending Unavailable ARGUETA, DR OWUSU Consulting Unavailable SCHNEBLEPARAS Consulting Unavailable BALL, DR CRUMP Attending Unavailable [...] Care Unavailable BALL, DR CRUMP Admitting Unavailable Matt, Theron Unavailable Tom ARGUETA Attending Unavailable DOMINGA PRESLEY Attending Unavailable NILChadd Landeros Attending Unavailable Carmella NUÑEZ, Natali Luo Attending Unavailable Carmella NUÑEZ, Natali Luo Attending Unavailable Allergies Allergy Classification Reported Allergen(s) Allergy Type Date of Onset Reaction(s) Facility (1 source) 18885,00; Translations: [53410,00] Propensity to adverse reactions (disorder) 9 [facility] Repository (12 sources) metFORMIN; Translations: [metFORMIN] Drug Allergy diarrhea, Unknown [facility] Repository (3 sources) patient allergy list reviewed by nurse or physicia Propensity to adverse reactions 8 Comment:Done [facility] Other (1 source) No Known Medication Allergies; Translations: [No Known Medication Allergies] Propensity to adverse reactions (disorder) [facility] Repository Medications Current Medications Medication Drug Class(es) Dates Sig (Normalized) Sig (Original) aspirin 81 mg chewable tablet (12 sources) Platelet Aggregation Inhibitor, Nonsteroidal Anti-inflammatory Drug Start: 11-05-2023 take 1 tablet by mouth once daily Aspirin Active 1 TAB PO Daily November 05, 2023 12:00am FreeTextSi tablet Orally Once a day; Note: Source Status: Continue; Provider: Matt Crump ( ) Start: 12-15-2018 take 1 tablet by mouth once da colette aspirin 81 mg oral tablet 81 mg = 1 tab(s), Oral, Daily Start Date: 12/15/18 Status: Ordered take 1 tablet by luis felipe th every twenty-four hours Aspirin 81 MG 1 tablet Orally Once a day Active Aspirin Active atenolol 25 mg oral tablet (13 sources) beta-Adrenergic Cesar Start: 09-16-2023 Atenol ol Active 0 .ROUTE .COMPLEX 90 September 16, 2023 12:45pm TAKE 1 TABLET DAILY Start: 12-15-2018 End: 09-16-2023 take 1 tablet by mouth once daily atenolol 25 mg Tab 2 5 mg = 1 tab(s), Oral, Daily Start Date: 12/15/18 Status: Ordered atorvastatin 80 mg oral tablet (12 sources) HMG-CoA Reductase Inhibitor Start: 12-16-2018 take 80 mg by mouth once daily in the evening Atorvastatin Active 80 MG PO Every evening November 05, 2023 12:00am celecoxib 200 mg oral capsule (9 sources) Nonsteroidal Anti-inflammatory Drug Start: 11-05-2023 take 1 capsule by mouth once daily Celecoxib (Celebrex) 200 mg capsule Active 200 MG PO Daily November 05, 2023 12:00am CeleBREX Not-Jamar ing CeleBREX Active clopidogrel 75 mg oral tablet (10 sources) P2Y12 Platelet Inhibitor Start: 12-16-2018 take 75 mg by mouth once daily Clopidogrel Active 75 MG PO Daily November 05, 2023 12:00am glimepiride 1 mg oral tablet (1 source) [...] THE SKIN DAILY Active Lantus Solostar Pen (3 sources) Start: 12-15-2018 inject 50 [IU] by subcutaneous injection once daily Lantus Solostar Pen 50 unit(s), SubCutaneous, Daily Start Date: 12/15/18 Status: Ordered pantoprazole (13 sources) Proton Pump Inhibitor Start: 07-03-2023 Pantoprazole Active 0 .ROUTE .COMPLEX 90 July 03, 2023 10:55pm TAKE 1 TABLET DAILY ON AN EMPTY STOMACH FOLLOWED IN 30 MINUTES BY BREAKFAST Start: 12-16-2018 End: 07-03-2023 take 1 tablet by mouth once daily Pantoprazole [address] Tab 40 mg = 1 tab(s), Oral, Daily Start Date: 12/16/18 Status: Ordered pioglitazone 15 mg oral tablet (10 sources) Peroxisome Proliferator Receptor alpha Agonist, Peroxisome Proliferator Receptor gamma Agonist, Thiazolidinedione Start: 04-10-2021 take 15 mg by mouth once daily Pioglitazone Active 15 MG PO Daily November 05, 2023 12:00am Start: 04-10-2021 take 1 mg by mouth twice daily pioglitazone 15 mg Tab mg tab(s), Oral, BID, Refills(s) 0 Start Date: 04/10/21 Status: Ordered Completed/Discontinued Medications Medication Drug Class(es) Dates Sig (Normalized) Sig (Original) cephalexin 500 mg oral capsule (1 source) Cephalosporin Antibacterial Start: 11-20-2021 take 1 capsule by mouth once daily Keflex 500 mg Cap 500 mg = 1 cap(s), Oral, Daily, Take 1 tab day before procedure and 1 after procedure, # 2 cap(s), Refills(s) 0, Pharmacy: [facility]/pharmacy #[id number], 177, cm, 11/20/21 12:47:00 EDT, [...] Active Problems Problem Classification Problem Date Documented Da te Episodic/Chronic Allergic reactions (3 sources) Allergic contact dermatitis due to plants, except food; Translations: [Allergic contact dermatitis due to plants, except food] Episodic Calculus of urinary tract (6 sources) History of calculus of kidney; Translations: [...] disease (20 sources) Atherosclerotic heart disease of [place] coronary artery with unstable angina pectoris; Translations: [Atherosclerotic heart disease of [place] coronary artery without angina pectoris] Onset: 08-25-2013 03-20-2019 Chronic Deficiency and other anemia (7 sources) Anemia; Translations: [Anemia, unspecified] 03-21-2020 Episodic Deficiency and other anemia (6 sources) Iron deficiency anemia; Translations: [Iron deficiency anemia, unspecified] Episodic Deficiency and other anemia (2 sources) Anemia, unspecified; Translations: [Anemia, unspecified] Episodic Diabetes mellitus with complications (20 sources) Type 2 diabetes mellitus with hyperglycemia; Translations: [Type 2 diabetes mellitus with diabetic chronic kidney disease] Onset: 06-26-2016 Chronic Diabetes mellitus without complication (13 sources) Type 2 diabetes mellitus without complications; Translations: [Type 2 diabetes mellitus] Onset: 08-25-2013 12-15-2018 Chronic Diabetes mellitus without complication (5 sources) Glycosuria; Translations: [Glycosuria] Onset: 10-01-2023 04-06-2019 Episodic Diseases of white blood cells (10 sources) Lymphocytopenia; Translations: [Lymphocytopenia] Onset: 11-30-2021 03-21-2020 Chronic Disorders of lipid metabolism (20 sources) Hyperlipidemia, unspecified; Translations: [Hyperlipidemia] Onset: 08-25-2013 12-15-2018 Chronic Esophageal disorders (13 sources) Gastro-esophageal reflux disease without esophagitis; Translations: [Gastroesophageal reflux disease] Onset: 08-25-2013 Resolved: 12-06-2023 03-20-2019 Chronic Essential hypertension (20 sources) Essential (primary) hypertension; Translations: [Benign hypertension] Onset: 08-25-2013 12-15-2018 Chronic Genitourinary symptoms and ill-defined conditions (18 sources) Blood in urine; Translations: [Gross hematuria] Onset: 11-20-2021 Episodic Hyperplasia of prostate (20 sources) Benign prostatic hypertrophy with outflow obstruction; Translations: [Benign prostatic hyperplasia with lower urinary tract symptoms] Onset: 08-25-2013 Chronic Immunizations and screening for infectious disease (3 sources) Vaccination given; Translations: [Encounter for immunization] Episodic Inflammatory conditions of male genital organs (3 sources) Chronic prostatitis 03-20-2019 Chronic Joint disorders and dislocations; trauma-related (9 sources) Derangement of right knee; Translations: [Unspecified internal derangement of right knee] Chronic Osteoarthritis (3 sources) Osteoarthritis; Translations: [Polyosteoarthritis, unspecified] Onset: 09-18-2013 Chronic Other aftercare (6 sources) long-term (current) use of insulin; Translations: [manager long term care (current) use of antithrombotics/antip latelets] Onset: 04-15-2017 Episodic Other aftercare (8 sources) Long-term current use of insulin; Translations: [long-term (current) use of insulin] Episodic Other aftercare (1 source) Other senior living (current) drug therapy Episodic Other gastrointestinal disorders (1 source) Abnormal feces; Translations: [Other fecal abnormalities] Onset: 12-18-2023 Episodic Other injuries and conditions due to external causes (3 sources) History of fall; Translations: [History of falling] Episodic Other liver diseases (6 sources) Abnormal liver function; Translations: [Abnormal liver function study] Chronic Other lower respiratory disease (1 source) Shortness of breath Episodic Other male genital disorders (3 sources) Pain in testicle 03-20-2019 Episodic Other male genital disorders (3 sources) Testicular mass 03-20-2019 Episodic Other nervous system disorders (2 sources) Chronic pain; Translations: [Other chronic pain] Chronic Other nervous system disorders (1 source) Other chronic pain Chronic Other non-traumatic joint disorders (1 source) Pain in right knee Episodic Other nutritional; endocrine; and metabolic disorders (3 sources) Obesity; Translations: [Obesity, unspecified] Onset: 08-25-2013 Chronic Other nutritional; endocrine; and metabolic disorders (1 source) Overweight 12-18-2023 Episodic Other nutritional; endocrine; and metabolic disorders (1 source) Overweight in adulthood with body mass index of 25 or more but less than 30 12-18-2023 Episodic Other screening for suspected conditions (not mental disorders or infectious disease) (4 sources) Encounter for screening for malignant neoplasm of prostate; Translations: [Patient encounter status] Episodic Other skin disorders (3 sources) Actinic keratosis 12-16-2018 Episodic Other skin disorders (3 sources) Epidermoid cyst of skin 03-22-2020 Episodic Other skin disorders (3 sources) Epidermoid cyst of skin of neck 12-16-2018 Episodic Other skin disorders (3 sources) Senile hyperkeratosis 01-30-2019 Episodic Other skin disorders (6 sources) Sebaceous cyst; Translations: [Sebaceous cyst] Onset: 11-21-2018 Episodic Residual codes; unclassified (1 source) H/O: Disorder; Translations: [Personal history of other specified conditions] Onset: 10-01-2023 Episodic Spondylosis; intervertebral disc disorders; other back problems (1 source) Lumbar spondylosis Onset: 11-18-2023 12-06-2023 Chronic Spondylosis; intervertebral disc disorders; other back problems (7 sources) Sciatica; Translations: [Lumbago with sciatica, left side] Onset: 09-18-2013 11-05-2023 Episodic Substance-related disorders (3 sources) Tobacco user; Translations: [Nicotine dependence, cigarettes, in remission] Chronic Unclassified (1 source) Stenosis of coronary artery stent, initial encounter; Translations: [STENOSIS OF CORONARY ARTERY STENT, INITIAL ENCOUNTER] Onset: 04-15-2017 Unclassified (2 sources) Unknown / UNK(Unknown) Onset: 04-15-2017 Unclassified (3 sources) Drug therapy finding 04-06-2019 Unclassified (3 sources) Finding of sensation of bladder 03-20-2019 [...] Test Name Value Interpretation Reference Range Facility Ambulatory Visit Summaryon 0 12-18-2023 Ambulatory Visit Summary Ambulatory Visit Summary LISA LUGO :1950 Visit Date:12/18/2023 Ambulatory Visit Instructions Your Care Team Attending Physician - ANGLE NUÑEZ, Chadd Cohen Primary Care Physician - THERON MENDOZA DO This Is Your Medications List Contact prescribing physician if questions or concerns aspirin (aspirin 81 mg oral tablet) atenolol (atenolol 25 mg Tab) atorvastatin (atorvastatin 80 mg Tab) clopidogrel (Plavix 75 mg Tab) insulin glargine (Lantus Solostar Pen) pantoprazole (Pantoprazole [address] Tab) pioglitazone (pioglitazone 15 mg Tab) Procedures Performed Cystoscopy (04/08/2018), Colonoscopy (10/07/2013), TURP - Transurethral resection of prostate (10/11/2011), Cystoscopy (09/14/2011), Cystoscopy (05/02/2010), Cystoscopy (04/18/2010), Laser ablation of prostate (09/07/2008), Cystoscopy (08/31/2008), Urodynamics (08/25/2008), Transrectal biopsy of prostate using ultrasound (US) guidance (08/03/2008), Arthroscopy of knee, Cardiac catheterization, Patient has a coronary artery stent (Peri2), Placement of stent in coronary artery. Discharge Vitals Heart Rate (Peripheral) 70 Respiratory Rate 16 Blood Pressure 126/74 Height 177 cm Height 70 in Weight 81 kg Weight 178.2 lb BMI 25.85 What to do next Scheduled Follow-Up Appointments Saturday 10:15 AM EDT With: LIZABETH NUÑEZ, Tom Cohen Where: [facility] [id number] Medications What How Much When Instructions Unchanged [...] pioglitazone (pioglitazone 15 mg Tab) By Mouth Every day Contact prescribing physician if questions or concerns Allergies No Known Allergies No Known Medication Allergies metFORMIN (Diarrhea) Problems Ongoing - Any problem that you are currently receiving treatment for. Anemia Anticoagulated ASHD (arteriosclerotic heart disease) BMI 25.0-25.9,adult BPH with urinary obstruction CAD (coronary artery disease) Chronic prostatitis Epidermal cyst Epidermal cyst of neck Feeling of incomplete bladder emptying GERD (gastroesophageal reflux disease) Glycosuria History of gross hematuria History of nephrolithiasis Hyperlipidemia Hypertension Lumbar spondylosis Lymphocytopenia Mass of testicle Nocturia Overweight Positive colorectal cancer screening using Cologuard test Seborrheic keratosis Solar keratosis Testicle pain Type 2 diabetes mellitus Urinary retention Historical - Any problem that you are no longer receiving treatment for. Benign hypertension BPH - benign prostatic hyperplasia Diabetes mellitus type 2 Gastroesophageal reflux disease Hyperlipidemia Patient Survey You may receive a survey via text or e-mail asking about your office visit. Please share your experience with us by completing your survey. We appreciate your feedback and thank you for choosing us for your care. Normal [facility] Cholesterol in LDL Calc [Mas s/Vol]on 11-05-2023 Cholesterol in LDL [Mass/Vol] 42.0 mg/dL [facility] Comment on above: <100 mg/dl [id number] mg/dl NEAR OR ABOVE [id number] mg/dl BORDERLINE [id number] mg/dl HIGH>190 mg/dl VERY HIGH Cholesterol in VLDL Calc [Ma ss/Vol]on 11-05-2023 Cholesterol in VLDL [Mass/Vol] 35.6 mg/dL [facility] Estimated glomerular filtrat ion rate (GFR) non- Americanon 11-05-2023 GFR/1.73 sq M.predicted among non-blacks MDRD (S/P/Bld) [Vol rate/Area] mL/min/{1.73_m2} >=60 [facility] Globulin Calc (S) [Mass/Vol] on 11-05-2023 Globulin (S) [Mass/Vol] 3.3 g/dL [facility] Glucose mean value [Mass/vol ume] in Blood Estimated from glycated hemoglobinon 11-05-2023 Average glucose Estimated from glycated hemoglobin (Bld) [Mass/Vol] 143 mg/dL [facility] Laboratory - Chemistry and C hemistry - challengeon 11-05-2023 Albumin [Mass/Vol] 4.0 g/dL 3.4-5.0 [facility] ALP [Catalytic activity/Vol] 74 U/L 46-116 [facility] ALT [Catalytic activity/Vol] 48 U/L 16-63 [facility] AST [Catalytic activity/Vol] 34 U/L 15-37 [facility] Bilirubin [Mass/Vol] 0.9 mg/dL 0.2-1.0 [facility] Calcium [Mass/Vol] 8.6 mg/dL 8.5-10.1 [facility] Chloride [Moles/Vol] 103 mmol/L 98-107 [facility] Cholesterol [Mass/Vol] 119 mg/dL <=200 [facility] Cholesterol in HDL [Mass/Vol] 42 mg/dL 40-60 [facility] Comment on above: > or =60 mg/dl - LOW CARDIOVASCULAR RISK <40 mg/dl - HIGH CARDIOVASCULAR RISK CO2 [Moles/Vol] 28.3 mmol/L 21.0-32.0 [facility] Creatinine [Mass/Vol] 1.10 mg/dL 0.70-1.30 [facility] GFR/1.73 sq M.predicted MDRD (S/P/Bld) [Vol rate/Area] mL/min/{1.73_m2} >=60 [facility] Glucose [Mass/Vol] 139 mg/dL High 74-106 [facility] Potassium [Moles/Vol] 4.1 mmol/L 3.5-5.1 [facility] Protein [Mass/Vol] 7.3 g/dL 6.4-8.2 [facility] Sodium [Moles/Vol] 141 mmol/L 136-145 [facility] Triglyceride [Mass/Vol] 178 mg/dL High <=150 [facility] Urea nitrogen [Mass/Vol] 21.0 mg/dL High 7.0-18.0 [facility] Urea nitrogen/Creatin ine [Mass ratio] 19.1 mg/mg [facility] Laboratory - Hematology and Cell countson 11-05-2023 HbA1c (Bld) [Mass fraction] 6.6 % High 4.5-6.2 [facility] Comment on above: ADA RECOMMENDED LIMIT 4.0 - 6.0ADA THERA PEUTIC TARGET < 7.0ACTION SUGGESTED> 7.0 Microalbumin [Mass/volume] i n Urineon 11-05-2023 Albumin DL <= 20 mg/L (U) [Mass/Vol] 3.4 mg/dL <=30.0 [facility] Serum or plasma albumin/glob ulin mass ratioon 11-05-2023 Albumin/Globulin [Mass ratio] 1.2 {ratio} [facility] Serum or plasma anion gap de terminationon 11-05-2023 Anion gap [Moles/Vol] 13.8 mmol/L [facility] Serum or plasma total choles terol/high density lipoprotein (HDL) cholesterol mass aquiles 11-05-2023 Cholesterol.tota l/Cholesterol in HDL [Mass ratio] 2.8 {ratio} [facility] Comment on above: 3.3 - 4.4 LOW RISK4.4 - 7.1 AVERAGE RISK 7.1 - 11.0 MODERATE RISK>11.0 HIGH RISK Screenson 10-02-2023 Screens [id number] Normal [facility] Screens [id number]#[id number] Normal [facility] Ambulatory Visit Summaryon 0 10-01-2023 Ambulatory Visit Summary KIMBERLEEDEMETRIUSLISA :1950 Visit Date:10/01/2023 Ambulatory Visit Instructions Your [...] Follow-Up Appointments Saturday 10:15 AM EDT With: LIZABETH NUÑEZ, Tom Cohen Where: [facility] Patient Educationon 10-01-19 Patient Education Urology Benign Prostatic Hyperplasia Benign [...] Follow these instructions at home: ? Take xamc-vbd-nueiigg and prescription medicines only as told by [...] the medicine (more content not included)... Normal [facility] Urology Office/Clinic Noteon 10-01-2023 Urology Office/Clinic Note [...] Contact Information SAKINA RANDALL, DOMINGA Multani, URL [address] [place] [address] Additional Instructions: 1 yr PSA Patient Education Benign Prostatic Hyperplasia Documentation recorded by the scribcourtney Marcus accurately reflects the services(s) I performed and decisions made by me. Authenticated by Dominga Presley PA-C on 10/01/2023 13:07:16. Trish Borden, personally scribed for RIGO Dodge on 10/01/2023 [...] virus vaccine (more content not included)... Normal [facility] Comment on above: Result Comment: Electronically Signed By : DOMINGA PRESLEY PA-C\.br\Date and Time Signed: 10/01/23 13:08 EDT\.br\Electronically Co-Signed By: Trish Marcus\.br\Date and Time Co-Signed: 10/01/23 13:03 EDT Lab Reportson 09-18-2023 Lab Reports [id number]#[id number] Normal [facility] RAD - Ultrasound Reporton RAD - Ultrasound Report [id number]#1.00TIFF Normal [facility] No Panel Informationon 09-16 Free Prostate Specific Antigen 0.78 ng/mL N/A [facility] Comment on above: [place] ECLIA methodology. Prostate Specific Antigen Total 1.9 ng/mL 0.0-4.0 [facility] Comment on above: [place] ECLIA methodology.According to the [place] [employer], Serum PSAshould decrease and remain [...] PSA/Total PSA [Mass fraction] 41.1 % . [facility] Comment on above: The table below lists [...] for any other population of men.Performed at: - [address] [id number] Director: Guanakito Cota PhD, Phone: [phone] Reminderson 08-22-2023 Reminders - From: Sade Kilgore [...] appt. LM on VM informing pt that [facility] will be reaching out to get MINESH scheduled. Appt 09/20/23 to review results. Order & demo's faxed to the [facility] CS. MINESH scheduled 09/17/23 @ [facility] Normal [facility] GLYCOHEMOGLOBIN A1Con 2021 ADA RECOMMENDATION SEE BELOW Normal [facility] Comment on above: Result Comment: ADA RECOMMENDED LIMIT 4. 0 - 6.0 ADA THERAPEUTIC TARGET < 7.0 ACTION SUGGESTED > 7.0 Performed By: #### A 1C #### [facility] [address] [place] [address] Dr. Yara Chavez Glucose [Mass/Vol] 166 mg/dL Normal [facility] Comment on above: Performed By: #### A1C #### [facility] [address] [place], [place] [address] Dr. Yara Chavez HbA1c (Bld) [Mass fraction] 7.4 % Critically high 4.5-6.2 [facility] Comment on above: Performed By: #### A1C #### [facility] [address] [place], [place] [address] ABD/PELV W CONon [...] PARAS SOMMERS Date: 2021-11-26 02:01 Normal [facility] CBC AUTO DIFFon 11-24-2021 BASO # 0.0 103/ul Normal 0.0-0.1 [facility] Comment on above: Performed By: #### CBC #### [facility] [address] [place] [address] [address] Yara Chavez Basophils/100 WBC (Bld) 0.7 % Normal 0.2-2.0 [facility] Comment on above: Performed By: #### CBC #### [facility] [address] [place] [address] [address] Yara Chavez EO # 0.0 103/ul Normal 0.0-0.7 [facility] Comment on above: Performed By: #### CBC #### [facility] [address] [place] [address] [address] Yara Chavez Eosinophils/100 WBC (Bld) 1.0 % Normal 0.9-7.0 [facility] Comment on above: Performed By: #### CBC #### [facility] [address] [place] [address] [address] Yara Chavez Erythrocyte distribution width (RBC) [Ratio] 14.7 % Normal 11.0-15.0 [facility] Comment on above: Performed By: #### CBC #### [facility] [address] [place] [address] [address] Yara Chavez Hematocrit (Bld) [Volume fraction] 38.7 % Critically low 42.0-54.0 [facility] Comment on above: Performed By: #### CBC #### [facility] [address] [place] [address] [address] Yara Chavez Hemoglobin (Bld) [Mass/Vol] 12.3 g/dL Critically low 14.0-18.0 [facility] Comment on above: Performed By: #### CBC #### [facility] [address] [place] [address] Dr. Yara Chavez IG # 0.01 10e3/ul Normal 0.00-0.03 [facility] Comment on above: Performed By: #### CBC #### [facility] [address] [place] [address] Dr. Yara Chavez IG % 0.3 % Normal 0.0-0.5 [facility] Comment on above: Performed By: #### CBC #### [facility] [address] [place] [address] Dr. Yara Chavez LYMPH # 1.1 103/ul Critically low 1.2-3.8 [facility] Comment on above: Performed By: #### CBC #### [facility] [address] [place] [address] Dr. Yara Chavez Lymphocytes/100 WBC (Bld) 36.1 % Normal 20.5-60.0 [facility] Comment on above: Performed By: #### CBC #### [facility] [address] [place] [address] Dr. Yara Chavez MANUAL DIFF REQ NO Normal [facility] Comment on above: Performed By: #### CBC #### [facility] Laboratory [address] [place] [address] Dr. Yara Chavez MCH (RBC) [Entitic mass] 28.0 pg Normal 25.9-34.0 [facility] Comment on above: Performed By: #### CBC #### [facility] [address] [place] [address] Dr. Yara Chavez MCHC (RBC) [Mass/Vol] 31.8 g/dL Normal 29.9-35.2 [facility] Comment on above: Performed By: #### CBC #### [facility] [address] [place] [address] Dr. Yara Chavez MCV (RBC) [Entitic vol] 88.2 fL Normal 80.0-94.0 [facility] Comment on above: Performed By: #### CBC #### [facility] [address] [place] [address] Dr. Yara Chavez MONO # 0.3 103/ul Normal 0.3-0.8 [facility] Comment on above: Performed By: #### CBC #### [facility] [address] [place] [address] Dr. Yara Chavez Monocytes/100 WBC (Bld) 9.5 % Normal 1.7-12.0 [facility] Comment on above: Performed By: #### CBC #### [facility] [address] [place] [address] Dr. Yara Chavez NEUT # 1.5 103/ul Normal 1.4-6.5 [facility] Comment on above: Performed By: #### CBC #### [facility] [address] [place] [address] Dr. Yara Chavez Neutrophils/100 WBC (Bld) 52.4 % Normal 43.0-75.0 [facility] Comment on above: Performed By: #### CBC #### [facility] [address] [place] [address] Dr. Yara Chavez Platelet mean volume (Bld) [Entitic vol] 10.1 fL Normal 9.5-13.5 [facility] Comment on above: Performed By: #### CBC #### [facility] [address] [place] [address] Dr. Yara Chavez PLT 195 103/ul Normal 150-450 [facility] Comment on above: Performed By: #### CBC #### [facility] [address] [place] [address] Dr. Yara Chavez RBC 4.39 106/ul Critically low 4.70-6.10 [facility] Comment on above: Performed By: #### CBC #### [facility] [address] [place] [address] Dr. Yara Chavez WBC 2.9 103/ul Critically low 4.0-11.0 [facility] Comment on above: Performed By: #### CBC #### [facility] [address] [place] [address] Dr. Yara Chavez LIPID PROFILEon 11-24-2021 CHOL-HDL RATIO NORM SEE BELOW Normal [facility] Comment on above: Result Comment: 3.3 - 4.4 LOW RISK 4.4 - 7.1 AVERAGE RISK 7.1 - 11.0 MODERATE RISK >11.0 HIGH RISK Performed By: #### A LT, BMP, LIPID #### [facility] [address] [place], [place] [address] Dr. Yara Chavez Cholesterol [Mass/Vol] 124 mg/dL Normal <=200 [facility] Comment on above: Performed By: #### ALT, BMP, LIPID #### [facility] [address] [place] [address] [address] Yara Chavez Cholesterol in HDL [Mass/Vol] 41 mg/dL Normal 40-60 [facility] Comment on above: Performed By: #### ALT, BMP, LIPID #### [facility] [address] [place] [address] [address] Yara Chavez Cholesterol in LDL [Mass/Vol] 56.8 mg/dL Normal [facility] Comment on above: Performed By: #### ALT, BMP, LIPID #### [facility] [address] [address] [address] Yara Chavez Cholesterol.tota l/Cholesterol in HDL [Mass ratio] 3.0 {ratio} Normal [facility] Comment on above: Performed By: #### ALT, BMP, LIPID #### [facility] [address] [address] [address] Yara Chavez HDL NORMAL > or = 60 mg/dl - LO W CARDIOVASCULAR RISK <40 mg/dl - HIGH CARDIOVASCULAR RISK Normal [facility] Comment on above: Performed By: #### ALT, BMP, LIPID #### [facility] [address] [place] [id number] Yara Chavez LDL CALC NORMAL SEE BELOW Normal [facility] Comment on above: Result Comment: <100 mg/dl OPTIMAL 100 - 129 mg/dl NEAR OR ABOVE OPTIMAL 130 - 159 mg/dl BORDERLINE HIGH 160 - 189 mg/dl HIGH >190 mg/dl VERY HIGH Performed By: #### A LT, BMP, LIPID #### [facility] [address] [place] [address] [address] Yara Chavez Triglyceride [Mass/Vol] 131 mg/dL Normal <=150 [facility] Comment on above: Performed By: #### ALT, BMP, LIPID #### [facility] [address] [place] [address] Dr. Yara Chavez VLDL CALC 26.2 mg/dL Normal [facility] Comment on above: Performed By: #### ALT, BMP, LIPID #### [facility] [address] [place] [address] [address] Yara Chavez MICROALBUMIN, RAND URon 07- mALB 1.4 mg/L Normal <=30.0 [facility] Comment on above: Performed By: #### MALBR #### [facility] [address] [place] [address] Dr. Yara Chavez PROF CHEM 8 (BAS METB)on Anion gap [Moles/Vol] 10.1 mmol/L Normal [facility] Comment on above: Performed By: #### ALT, BMP, LIPID #### [facility] [address] [place] [address] Dr. Yara Chavez Calcium [Mass/Vol] 9.0 mg/dL Normal 8.5-10.1 [facility] Comment on above: Performed By: #### ALT, BMP, LIPID #### [facility] [address] [place] [address] Dr. Yara Chavez Chloride [Moles/Vol] 105 mmol/L Normal 98-107 [facility] Comment on above: Performed By: #### ALT, BMP, LIPID #### [facility] [address] [place] [address] Dr. Yara Chavez CO2 [Moles/Vol] 31.3 mmol/L Normal 21.0-32.0 [facility] Comment on above: Performed By: #### ALT, BMP, LIPID #### [facility] [address] [place] [address] Dr. Yara Chavez Creatinine [Mass/Vol] 1.24 mg/dL Normal 0.70-1.30 [facility] Comment on above: Performed By: #### ALT, BMP, LIPID #### [facility] [address] [place] [address] [address] Yara Chavez EGFR-AF BERMUDIAN >60 Normal >=60 [facility] Comment on above: Performed By: #### ALT, BMP, LIPID #### [facility] [address] [place] [address] [address] Yara Chavez EGFR-NON AF BERMUDIAN 58 mL/min/1.73m2 Critically low >=60 [facility] Comment on above: Performed By: #### ALT, BMP, LIPID #### [facility] [address] [place] [address] [address] Yara Chavez Glucose [Mass/Vol] 102 mg/dL Normal 74-106 [facility] Comment on above: Performed By: #### ALT, BMP, LIPID #### [facility] [address] [place] [address] [address] Yara Chavez Potassium [Moles/Vol] 4.4 mmol/L Normal 3.5-5.1 [facility] Comment on above: Performed By: #### ALT, BMP, LIPID #### [facility] [address] [place] [address] [address] Yara Chavez Sodium [Moles/Vol] 142 mmol/L Normal 136-145 [facility] Comment on above: Performed By: #### ALT, BMP, LIPID #### [facility] [address] [place] [address] [address] Yara Chavez Urea nitrogen [Mass/Vol] 22.0 mg/dL Critically high 7.0-18.0 [facility] Comment on above: Performed By: #### ALT, BMP, LIPID #### [facility] [address] [place] [address] [address] Yara Chavez Urea nitrogen/Creatin ine [Mass ratio] 17.7 mg/mg Normal [facility] Comment on above: Performed By: #### ALT, BMP, LIPID #### [facility] [address] [place] [address] [address] Yara Chavez SGPTon 11-24-2021 ALT [Catalytic activity/Vol] 48 U/L Normal 16-63 [facility] Comment on above: Performed By: #### ALT, BMP, LIPID #### [facility] [address] [address] [address] Yara Chavez GLYCOHEMOGLOBIN A1Con 2021 ADA RECOMMENDATION SEE BELOW Normal [facility] Comment on above: Result Comment: ADA RECOMMENDED LIMIT 4. 0 - 6.0 ADA THERAPEUTIC TARGET < 7.0 ACTION SUGGESTED > 7.0 Performed By: #### A 1C #### [facility] [address] [place] [address] [address] Yara Chavez Glucose [Mass/Vol] 169 mg/dL Normal [facility] Comment on above: Performed By: #### A1C #### [facility] [address] [place] [address] Dr. Yara Chavez HbA1c (Bld) [Mass fraction] 7.5 % Critically high 4.5-6.2 [facility] Comment on above: Performed By: #### A1C #### [facility] [address] [place] [address] Dr. Yara Chavez PROF CHEM 8 (BAS METB)on Anion gap [Moles/Vol] 12.0 mmol/L Normal [facility] Comment on above: Performed By: #### BMP #### [facility] [address] [place] [address] Dr. Yara Chavez Calcium [Mass/Vol] 8.7 mg/dL Normal 8.5-10.1 [facility] Comment on above: Performed By: #### BMP #### [facility] [address] [place] [address] Dr. Yara Chavez Chloride [Moles/Vol] 103 mmol/L Normal 98-107 [facility] Comment on above: Performed By: #### BMP #### [facility] [address] [place] [address] Dr. Yara Chavez CO2 [Moles/Vol] 29.1 mmol/L Normal 21.0-32.0 [facility] Comment on above: Performed By: #### BMP #### [facility] [address] [place] [address] Dr. Yara Chavez Creatinine [Mass/Vol] 1.17 mg/dL Normal 0.70-1.30 [facility] Comment on above: Performed By: #### BMP #### [facility] [address] [place] [address] [address] Yara Chavez EGFR-AF BERMUDIAN >60 Normal >=60 [facility] Comment on above: Performed By: #### BMP #### [facility] [address] [place] [address] [address] Yara Chavez EGFR-NON AF BERMUDIAN >60 Normal >=60 [facility] Comment on above: Performed By: #### BMP #### [facility] [address] [place] [address] [address] Yara Chavez Glucose [Mass/Vol] 144 mg/dL Critically high 74-106 [facility] Comment on above: Performed By: #### BMP #### [facility] [address] [place] [address] Dr. Yara Chavez Potassium [Moles/Vol] 4.1 mmol/L Normal 3.5-5.1 [facility] Comment on above: Performed By: #### BMP #### [facility] [address] [place] [address] [address] Yara Chavez Sodium [Moles/Vol] 140 mmol/L Normal 136-145 [facility] Comment on above: Performed By: #### BMP #### [facility] [address] [place] [address] Dr. Yara Chavez Urea nitrogen [Mass/Vol] 18.0 mg/dL Normal 7.0-18.0 [facility] Comment on above: Performed By: #### BMP #### [facility] [address] [place] [address] Dr. Yara Chavez Urea nitrogen/Creatin ine [Mass ratio] 15.4 mg/mg Normal [facility] Comment on above: Performed By: #### BMP #### [facility] [address] [place] [address] Dr. Yara Chavez CNOVSPon 04-02-2019 CNOVSP Visit (SP) Office ([facility]) LISA LUGO ([id number]) 1950 M Date Time Provider Department 04/02/19 11:15 AM THAIS HEBERT During your visit today, we recorded the following information about you: Temperature Pulse Respiration Blood pressure 98.1 degrees 72/minute 16/minute 131/69 Weight Height 80.5 kg 1.778 m Thais Hebert DO 04/03/2019 1:15 PM Signed PATIENT NAME: Lisa Lugo REFERRING PHYSICIAN: Theron Mendoza MD ([facility]) [address] [address] PRIMARY CARE PHYSICIAN: Theron Mendoza MD CHIEF [...] PANEL - CBC + DIFF (FOR REMOTE [facility] USE) - IRON + TIBC - FERRITIN BLD - VITAMIN B12 BLOOD - FOLATE SERUM - METHYLMALONIC ACID - HEP REMOTE PANEL BL - SED [facility] Return labs today. f/u 6 mos. . [...] questions satisfactorily.. Francois Hebert D.O. Medical Oncologist [place], [place] Referring Provider: THERON MENDOZA [[id number]] Allergies As of Date: 04/02/2019 (No Known Allergies) Date Reviewed: 04/02/2019 Reviewed by: Dorene Germain - Fully Assessed Reason for Visit: abdnormal lab [Other] Cmt: new patient consultation Primary Visit Diagnosis:Leukopenia, unspecified type [D72.819] Other Visit Diagnosis:Abnormal finding of blood chemistry, unspecified [R79.9] Order(s):PROTEIN ELECTROPHORESIS W/INTERP [SQSEPG] Order #: [id number] FUTURE MONOCLONAL PROTEIN, SERUM (BLOOD) [SQSERMPA] Order #: [id number] FUTURE IMMUNOGLOBULINS SHANIA [SQSERIMM] Order #: [id number] FUTURE LD LACTATE DEHYDRO [SQLD6] Order #: [id number] FUTURE COMP METABOLIC PANEL [SQCMP] Order #: [id number] FUTURE CBC + DIFF (FOR REMOTE [facility] USE) [SQRCBCDF] Order #: [id number] FUTURE IRON + TIBC [SQIRON] Order #: [id number] FUTURE FERRITIN BLD [SQFERR] Order #: [id number] FUTURE VITAMIN B12 BLOOD [SQB12] Order #: [id number] FUTURE FOLATE SERUM [SQSERFOL] Order #: [id number] FUTURE METHYLMALONIC ACID [SQMMA] Order #: [id number] FUTURE HEP REMOTE PANEL BL [SQHREMOP] Order #: [id number] FUTURE SED RATE WESTERGREN [SQWSR] Order #: [id number] FUTURE Disposition: Return labs today. f/u 6 [...] Of Date: 04/02/2019 (None) Encounter Status:Closed by THAIS HEBERT DO on 04/03/19 Normal [facility] Comp Metabolic Panelon 04-02 Albumin [Mass/Vol] 4.4 g/dL Normal 3.9-4.9 [facility] ALP [Catalytic activity/Vol] 102 U/L Normal 38-113 [facility] ALT [Catalytic activity/Vol] 53 U/L Normal 10-54 [facility] Anion gap [Moles/Vol] 13 mmol/L Normal 9-18 [facility] AST [Catalytic activity/Vol] 31 U/L Normal 14-40 [facility] Bilirubin [Mass/Vol] 0.6 mg/dL Normal 0.2-1.3 [facility] Calcium [Mass/Vol] 9.6 mg/dL Normal 8.5-10.2 [facility] Chloride [Moles/Vol] 98 mmol/L Normal 97-105 [facility] CO2 [Moles/Vol] 24 mmol/L Normal 22-30 [facility] Creatinine [Mass/Vol] 0.94 mg/dL Normal 0.73-1.22 [facility] eGFR- Amer. >60 Normal [facility] GFR/1.73 sq M predicted among non-blacks MDRD (S/P/Bld) [Vol rate/Area] mL/min/{1.73_m2} Normal [facility] Comment on above: Result Comment: eGFR [...] GFR. Glucose [Mass/Vol] 257 mg/dL High 74-99 [facility] Comment on above: Result Comment: The [place] Diabetes As sociation (ADA) provides guidance for [...] Standards of Medical Care in Diabetes 2016, [place] [employer] Association. Diabetes Care. 2016.39(Suppl 1). Potassium [Moles/Vol] 4.8 mmol/L Normal 3.7-5.1 [facility] Protein [Mass/Vol] 7.4 g/dL Normal 6.3-8.0 [facility] Sodium [Moles/Vol] 135 mmol/L Low 136-144 [facility] Urea nitrogen [Mass/Vol] 19 mg/dL Normal 9-24 [facility] Ferritinon 04-02-2019 Ferritin [Mass/Vol] 279.0 ng/mL Normal 30.3-565.7 [facility] Comment on above: Performed By: #### WSR, B12, SERFOL, IRO N, FERR, SERIMM, HREMOP, SERMPA, SEPG, MMA #### [place] [phone] Folate, Serumon 04-02-2019 Folate [Mass/Vol] ng/mL Normal >4.7 [facility] Comment on above: Result Comment: A result of > 20 ng/mL i s not necessarily indicative of a pathologic or treatable condition: it reflects a limitation of the test methodology. Assay reference range: 4.8 to 24.2 ng/mL. Suitable for detection of folate deficiency. Reference: Folate III (Folate III) [package insert V 2.0 Khmer]. [facility], [place], [place]: February 2015. Performed By: #### W SR, B12, SERFOL, IRON, FERR, SERIMM, HREMOP, SERMPA, SEPG, MMA #### [place] [phone] Hepatitis Remote Panelon HBsAg Negative Normal Negative [facility] Comment on above: Performed By: #### WSR, B12, SERFOL, IRO N, FERR, SERIMM, HREMOP, SERMPA, SEPG, MMA #### [place] [phone] Hep B Core Ab,Total Negative Normal Negative [facility] Comment on above: Performed By: #### WSR, B12, SERFOL, IRO N, FERR, SERIMM, HREMOP, SERMPA, SEPG, MMA #### [place] [phone] Hepatitis C Ab IA Negative Normal Negative [facility] Comment on above: Performed By: #### WSR, B12, SERFOL, IRO N, FERR, SERIMM, HREMOP, SERMPA, SEPG, MMA #### [place] [phone] HepB Surface Ab,Qual Negative Normal Negative [facility] Comment on above: Result Comment: NEGATIVE Performed By: #### W SR, B12, SERFOL, IRON, FERR, SERIMM, HREMOP, SERMPA, SEPG, MMA #### [place] [phone] [place] [address] Immunoglobulins GAMon 2018 IgA [Mass/Vol] 323 mg/dL Normal 78-391 [facility] Comment on above: Performed By: #### WSR, B12, SERFOL, IRO N, FERR, SERIMM, HREMOP, SERMPA, SEPG, MMA #### [place] [phone] IgG [Mass/Vol] 981 mg/dL Normal 717-1411 [facility] Comment on above: Performed By: #### WSR, B12, SERFOL, IRO N, FERR, SERIMM, HREMOP, SERMPA, SEPG, MMA #### [place] [phone] IgM [Mass/Vol] 133 mg/dL Normal 53-334 [facility] Comment on above: Performed By: #### WSR, B12, SERFOL, IRO N, FERR, SERIMM, HREMOP, SERMPA, SEPG, MMA #### [place] [phone] Iron and TIBCon 04-02-2019 Iron [Mass/Vol] 80 ug/dL Normal 41-186 [facility] Comment on above: Performed By: #### WSR, B12, SERFOL, IRO N, FERR, SERIMM, HREMOP, SERMPA, SEPG, MMA #### [place] [phone] [place] [phone] TIBC 247 ug/dL Normal 232-386 [facility] Comment on above: Performed By: #### WSR, B12, SERFOL, IRO N, FERR, SERIMM, HREMOP, SERMPA, SEPG, MMA #### [place] [address] [place] [address] Transferrin Saturatn 32 % Normal 15-57 [facility] Comment on above: Performed By: #### WSR, B12, SERFOL, IRO N, FERR, SERIMM, HREMOP, SERMPA, SEPG, MMA #### [place] [address] [place] [address] LDon 04-02-2019 LD 131 U/L Low 135-225 [facility] Comment on above: Performed By: #### WSR, B12, SERFOL, IRO N, FERR, SERIMM, HREMOP, SERMPA, SEPG, MMA #### [place] [address] [place] [address] Methylmalonic Acidon 019 Methylmalonic Acid 232 nmol/L Normal 79-376 [facility] Comment on above: Result Comment: This test was developed and its performance characteristics determined by [facility]'s [facility] Pathology and Laboratory Medicine Siler ([facility]). It has not been cleared or approved by the FDA. [facility] is regulated under CLIA as qualified to perform high complexity testing. This test is used for clinical purposes. It should not be regarded as investigational or for research. Performed By: #### W SR, B12, SERFOL, IRON, FERR, SERIMM, HREMOP, SERMPA, SEPG, MMA ####[place] [phone] Monclnl Protein, Seron 04-02 K/L Ratio, Serum 1.88 High 0.26-1.[address] [facility] Comment on above: Performed By: #### WSR, B12, SERFOL, IRO N, FERR, SERIMM, HREMOP, SERMPA, SEPG, MMA ####[address] [phone] [place], Free, Serum 47.1 mg/L High 3.30-19.40 [facility] Comment on above: Result Comment: Test performed by an imm unoturbidimetric assay on Optilite instrument from [facility]. Immunoglobulin free light chain assay results should be interpreted in conjunction with other tests and in correlation with clinical picture. Performed By: #### W SR, B12, SERFOL, IRON, FERR, SERIMM, HREMOP, SERMPA, SEPG, MMA ####[place] [address] [phone] Lambda, Free, Serum 25.0 mg/L Normal 5.7-26.3 [facility] Comment on above: Result Comment: Test performed by an imm unoturbidimetric assay on Optilite instrument from [employer]. Immunoglobulin free light chain assay results should be interpreted in conjunction with other tests and in correlation with clinical picture. Performed By: #### W SR, B12, SERFOL, IRON, FERR, SERIMM, HREMOP, SERMPA, SEPG, MMA ####[place] [address] [phone] MPA Serum IgA 336 mg/dL Normal 78-391 [facility] Comment on above: Performed By: #### WSR, B12, SERFOL, IRO N, FERR, SERIMM, HREMOP, SERMPA, SEPG, MMA ####[place] [address] [phone] MPA Serum IgG 950 mg/dL Normal 717-1411 [facility] Comment on above: Performed By: #### WSR, B12, SERFOL, IRO N, FERR, SERIMM, HREMOP, SERMPA, SEPG, MMA ####[place] [address] [phone] MPA Serum IgM 136 mg/dL Normal 53-334 [facility] Comment on above: Performed By: #### WSR, B12, SERFOL, IRO N, FERR, SERIMM, HREMOP, SERMPA, SEPG, MMA ####[place] [address] [place], [place] [phone] Protein [Mass/Vol] No M protein is identified. Normal No M protein is identified . [facility] Comment on above: Performed By: #### WSR, B12, SERFOL, IRO N, FERR, SERIMM, HREMOP, SERMPA, SEPG, MMA ####[facility] [place], [place] [phone] Staff Review Reviewed by Chadd Ackerman MD ([id number]) Normal [facility] Comment on above: Performed By: #### WSR, B12, SERFOL, IRO N, FERR, SERIMM, HREMOP, SERMPA, SEPG, MMA ####[facility] [place], [place] [phone] PROGRESSon 04-02-2019 PROGRESS HNO ID: [id number] Author: Thais Hebert Service: ? Author Type: Physician Type: Progress Notes Filed: 04/03/2019 1:15 PM Note Text: PATIENT NAME: Lisa Lugo REFERRING PHYSICIAN: Theron Mendoza MD ([facility]) [facility] [address] PRIMARY CARE PHYSICIAN: Theron Mendoza MD CHIEF [...] PANEL - CBC + DIFF (FOR REMOTE [facility] USE) - IRON + TIBC - FERRITIN BLD - VITAMIN B12 BLOOD - FOLATE SERUM - METHYLMALONIC ACID - HEP REMOTE PANEL BL - SED RATE DIMASREN Return labs today. f/u 6 mos. . [...] questions satisfactorily.. Francois Hebert D.O. Medical Oncologist [place], [place] Normal [facility] Protein Electrophor.on 04-02 Albumin [Mass/Vol] 3.79 g/dL Normal 3.37-4.23 [facility] Comment on above: Performed By: #### WSR, B12, SERFOL, IRO N, FERR, SERIMM, HREMOP, SERMPA, SEPG, MMA ####[facility] [place], [place] [phone] Alpha 1 Globulin 0.31 gm/dL Normal 0.18-0.[address] [facility] Comment on above: Performed By: #### WSR, B12, SERFOL, IRO N, FERR, SERIMM, HREMOP, SERMPA, SEPG, MMA ####[place] [address] [address] [phone] Alpha 2 Globulin 0.96 gm/dL Normal 0.52-0.[address] [facility] Comment on above: Performed By: #### WSR, B12, SERFOL, IRO N, FERR, SERIMM, HREMOP, SERMPA, SEPG, MMA ####[place] [address] [phone] Beta Globulin 1.17 gm/dL Normal 0.84-1.36 [facility] Comment on above: Performed By: #### WSR, B12, SERFOL, IRO N, FERR, SERIMM, HREMOP, SERMPA, SEPG, MMA ####[place] [address] [phone] Gamma Globulin 0.97 gm/dL Normal 0.70-1.44 [facility] Comment on above: Performed By: #### WSR, B12, SERFOL, IRO N, FERR, SERIMM, HREMOP, SERMPA, SEPG, MMA ####[address] [phone] Interpretation SEE COMMENT Normal [facility] Comment on above: Result Comment: No definitive M protein is identified on protein electrophoresis. Performed By: #### W SR, B12, SERFOL, IRON, FERR, SERIMM, HREMOP, SERMPA, SEPG, MMA ####[place] [address] [phone] M Guy Concentratn 0.00 gm/dL Normal 0.00 [facility] Comment on above: Performed By: #### WSR, B12, SERFOL, IRO N, FERR, SERIMM, HREMOP, SERMPA, SEPG, MMA ####[address]CShannon [place] [phone] Protein [Mass/Vol] 7.2 g/dL Normal 6.0-8.4 [facility] Comment on above: Performed By: #### WSR, B12, SERFOL, IRO N, FERR, SERIMM, HREMOP, SERMPA, SEPG, MMA ####[facility] [address]CWinche[address], [place] [phone] Protein [Mass/Vol] N/A Normal [facility] Comment on above: Performed By: #### WSR, B12, SERFOL, IRO N, FERR, SERIMM, HREMOP, SERMPA, SEPG, MMA ####[facility]CWinche[address], [place] [phone] SPE Staff Review Reviewed by Chadd Ackerman MD ([id number]) Normal [facility] Comment on above: Performed By: #### WSR, B12, SERFOL, IRO N, FERR, SERIMM, HREMOP, SERMPA, SEPG, MMA ####[facility]CW[address], [place] [phone] Remote CBCDIF (for [facility] use o nly)on 04-02-2019 Abs Baso <0.03 Normal 0.00-0.10 [facility] Abs Poquoson 0.48 k/uL Normal 0.00-0.86 [facility] Abs Neut 4.30 k/uL Normal 1.45-7.50 [facility] Basophils/100 WBC (Bld) 0.2 % Normal [facility] Eosinophils (Bld) [#/Vol] 0.04 10*3/uL Normal 0.00-0.45 [facility] Eosinophils/100 WBC (Bld) 0.7 % Normal [facility] Erythrocyte distribution width (RBC) [Ratio] 13.9 % Normal 11.5-15.0 [facility] Hematocrit (Bld) [Volume fraction] 39.6 % Normal 39.0-51.0 [facility] Hemoglobin (Bld) [Mass/Vol] 12.6 g/dL Low 13.0-17.0 [facility] Lymphocytes (Bld) [#/Vol] 0.84 10*3/uL Low 1.00-4.00 [facility] Lymphocytes/100 WBC (Bld) 14.8 % Normal [facility] MCH (RBC) [Entitic mass] 27.4 pG Normal 26.0-34.0 [facility] MCHC (RBC) [Mass/Vol] 31.8 g/dL Normal 30.5-36.0 [facility] MCV (RBC) [Entitic vol] 86.1 fL Normal 80.0-100.0 [facility] Monocytes/100 WBC (Bld) 8.5 % Normal [facility] Neutrophils/100 WBC (Bld) 75.8 % Normal [facility] Platelet mean volume (Bld) [Entitic vol] 9.7 fL Normal 9.0-12.7 [facility] Platelets (Bld) [#/Vol] 243 10*3/uL Normal 150-400 [facility] RBC (Bld) [#/Vol] 4.60 10*6/uL Normal 4.20-6.00 [facility] WBC (Bld) [#/Vol] 5.67 10*3/uL Normal 3.70-11.00 [facility] Sed Rate Westergrenon 2018 Sed Rate Westergren 41 mm/hr High 0-15 [facility] Comment on above: Performed By: #### WSR, B12, SERFOL, IRO N, FERR, SERIMM, HREMOP, SERMPA, SEPG, MMA #### [facility] [address] [place] [address] Vitamin B12on 04-02-2019 Cobalamin (Vitamin B12) [Mass/Vol] 595 pg/mL Normal 232-1245 [facility] Comment on above: Performed By: #### WSR, B12, SERFOL, IRO N, FERR, SERIMM, HREMOP, SERMPA, SEPG, MMA #### [facility] [address] [place] [address] Cardiovascular Lab Reporton 04-26-2017 Cardiovascular Lab Report [facility] Patient Name: Lisa Lugo [facility] MR #: [id number] Physician: Jenny Parsons M.D.Medicine Service Date: 04/25/2017Division of Birthdate: 2Cardiology Room #: 3CD [id number] [place] [phone] Fax Cardiovascular Laboratory ReportINDICATION: Mr. Lisa Lugo is a 66-year-old man, known to havecoronary artery disease status [place]. Recently, he presented with transient ST-segment elevation in thesetting of ongoing chest pain. He underwent cardiac catheterization anddrug-eluting stenting of the distal right coronary artery de rachel stenosisas well as drug-eluting stenting of the proximal right coronary arteryin-stent restenosis. At that time, he was found to have [id number] restenosis in the mid LAD. He is [...] angiography was performedfollowed by upsizing to a 6-[place] Islander x 11 cm sheath. Heparin wasadministered intravenously and therapeutic ACT confirmed during theprocedure. A 6-[place] Islander XB 3.5 guiding catheter was advanced and [...] the [place] wire.Angiography was performed. [place] Quantum [place] 2.5 x 15 mm noncompliantballoon was then [...] 04/25/2017/09:47 A/Jenny Coppola M.D.Date Trans: 04/26/2017 02:28 A/[id number]: Theron Mendoza D.O. [address] [place] [address] A [facility] [phone] Normal [facility] POC GLUCOSE LABon 04-26-2017 Glucose mass conc 99 mg/dL Normal 70-100 [facility] Comment on above: Performed By: #### [id number] ####[facility]3000 [facility].[address] CBC COMPLETE BLOOD COUNTon 1 06-26-2016 Erythrocyte distribution width Auto Ratio (RBC) 14.3 % Normal 11.5-16.9 [facility] Comment on above: Order Comment: Yes: Add to Previous draw if able Performed By: #### 5 [id number] ####[facility]3000 [facility].[address] Erythrocytes (RBC) 4.16 mill/mm3 Low 4.30-5.90 [facility] Comment on above: Order Comment: Yes: Add to Previous draw if able Performed By: #### 5 0608 ####[facility]3000 [facility].[address] Hematocrit (HCT) 34.8 % Low 39.0-55.0 [facility] Comment on above: Order Comment: Yes: Add to Previous draw if able Performed By: #### 5 0608 ####[facility] [facility] [place] [place] [address], [facility] Hemoglobin mass conc (Bld) 11.8 g/dL Low 13.9-16.3 [facility] Comment on above: Order Comment: Yes: Add to Previous draw if able Performed By: #### 5 0608 ####[facility] [facility] [place] [address], [facility] MCH 28.2 pg Normal 24.0-32.0 [facility] Comment on above: Order Comment: Yes: Add to Previous draw if able Performed By: #### 5 0608 ####[facility] [place] [address], [facility] MCHC mass conc (RBC) 33.8 g/dL Normal 32.0-36.0 [facility] Comment on above: Order Comment: Yes: Add to Previous draw if able Performed By: #### 5 0608 ####[facility] [place] [address], [facility] MCV 83.6 fL Normal 80.0-100.0 [facility] Comment on above: Order Comment: Yes: Add to Previous draw if able Performed By: #### 5 0608 ####[facility] [place] [address], [facility] PLAT CNT 198 Thou/mm3 Normal 100-400 [facility] Comment on above: Order Comment: Yes: Add to Previous draw if able Performed By: #### 5 0608 ####[facility] [place] [address], [facility] WBC (Leukocytes) 3.9 Thou/mm3 Low 4.0-10.0 [facility] Comment on above: Order Comment: Yes: Add to Previous draw if able Performed By: #### 5 0608 ####[facility] POC GLUCOSE LABon 04-25-2017 Glucose mass conc 232 mg/dL High 70-100 [facility] Comment on above: Performed By: #### [id number] ####[facility] Glucose mass conc 281 mg/dL High 70-100 [facility] Comment on above: Performed By: #### [id number] ####[facility] [place] [address], [facility] Discharge Summaryon 04-20-20 17 Discharge Summary MR[id number] Admitted: 04/15/2017 [...] history, requiring stentingin the past, presented to [facility] initially with complaints ofrecurrent chest pain at rest. Initial EKG showed minor ST-segment elevationin the inferior leads, which resolved after administration of IV heparinand nitroglycerin. [facility] and intervention. Heunderwent left heart catheterization with successful balloon dilatation andstenting of 2 lesions. The patient recovered well postprocedure with nofurther recurrence of chest pain. Right femoral access site healed well.DISCHARGE CONDITION: Stable.DISCHARGE DISPOSITION: Home.DISCHARGE MEDICATIONS: Aspirin 81 mg daily, atenolol 25 mg daily, Tagvikxc073 mg daily, Clopidogrel 75 mg daily, Lantus [...] personal documentation from me. Date Dict: 04/19/2017/06:17 P/Rosemary Pinzon Trans: 04/20/2017 07:36 A/[id number]: Theron Mendoza D.O. [facility]5 [facility] A [facility] [phone] Tino Gunderson M.D. [address] [facility] [address] Normal [facility] BASIC METABOLIC PANELon 03-29 Calcium 9.0 mg/dL Normal 8.6-10.3 [facility] Comment on above: Order Comment: No: Do not add to previou s draw Performed By: #### 1 0, 70480 ####[facility]3000 [facility].[address] Chloride 104 mmol/L Normal 98-107 [facility] Comment on above: Order Comment: No: Do not add to previou s draw Performed By: #### 1 0070, 60686 ####[facility] [facility] [place] [place] [address], [facility] CO2 24 mmol/L Normal 21-31 [facility] Comment on above: Order Comment: No: Do not add to previou s draw Performed By: #### 1 0070, 56004 ####[facility] [facility] [place] [place] [address], [facility] Creatinine 0.94 mg/dL Normal 0.70-1.30 [facility] Comment on above: Order Comment: No: Do not add to previou s draw Performed By: #### 1 0, 43177 ####[facility] eGFR (black) mL/min/{1.73_m2} Normal >60 [facility] Comment on above: Order Comment: No: Do not add to previou s draw Performed By: #### 1 69, 53474 ####[facility] eGFR (non-black) mL/min/{1.73_m2} Normal >60 [facility] Comment on above: Order Comment: No: Do not add to previou s draw Performed By: #### 1 69, 07755 ####[facility] Glucose mass conc 182 mg/dL High 70-100 [facility] Comment on above: Order Comment: No: Do not add to previou s draw Performed By: #### 1 69, [address] ####[facility]3000 [facility] Potassium molar conc 3.9 mmol/L Normal 3.5-5.1 [facility] Comment on above: Order Comment: No: Do not add to previou s draw Performed By: #### 1 69, 00762 ####[facility] Sodium 138 mmol/L Normal 136-145 [facility] Comment on above: Order Comment: No: Do not add to previou s draw Performed By: #### 1 69, 35389 ####[facility] Urea nitrogen 18 mg/dL Normal 7-25 [facility] Comment on above: Order Comment: No: Do not add to previou s draw Performed By: #### 1 69, 50711 ####[facility] [facility] CBC COMPLETE BLOOD COUNTon 06-17-2016 Erythrocyte distribution width Auto Ratio (RBC) 14.7 % Normal 11.5-16.9 [facility] Comment on above: Order Comment: No: Do not add to previou s draw Performed By: #### 5 0608 ####[facility] Erythrocytes (RBC) 4.37 mill/mm3 Normal 4.30-5.90 [facility] Comment on above: Order Comment: No: Do not add to previou s draw Performed By: #### 5 0608 ####[facility]3000 [facility].[address] Hematocrit (HCT) 36.5 % Low 39.0-55.0 [facility] Comment on above: Order Comment: No: Do not add to previou s draw Performed By: #### 5 0608 ####[facility]3000 [facility].[address] Hemoglobin mass conc (Bld) 12.3 g/dL Low 13.9-16.3 [facility] Comment on above: Order Comment: No: Do not add to previou s draw Performed By: #### 5 0608 ####[facility] [facility].[address] MCH 28.0 pg Normal 24.0-32.0 [facility] Comment on above: Order Comment: No: Do not add to previou s draw Performed By: #### 5 0608 ####[facility]3000 [facility].[address] MCHC mass conc (RBC) 33.5 g/dL Normal 32.0-36.0 [facility] Comment on above: Order Comment: No: Do not add to previou s draw Performed By: #### 5 0608 ####[facility] MCV 83.5 fL Normal 80.0-100.0 [facility] Comment on above: Order Comment: No: Do not add to previou s draw Performed By: #### 5 0608 ####[facility] PLAT CNT 167 Thou/mm3 Normal 100-400 [facility] Comment on above: Order Comment: No: Do not add to previou s draw Performed By: #### 5 0608 ####[place] [id number] [address] WBC (Leukocytes) 4.7 Thou/mm3 Normal 4.0-10.0 [facility] Comment on above: Order Comment: No: Do not add to previou s draw Performed By: #### 5 0608 ####[facility] Cardiovascular Lab Reporton 04-16-2017 Cardiovascular Lab Report [facility] Patient Name: Lisa Lugo [facility] MR #: [id number] Physician: Jenny Parsons M.D.Medicine Service Date: 04/15/2017Division of Birthdate: 2Cardiology Room #: 3AB [id number] CardiovascularServicCatherine [place] [phone] Fax Cardiovascular Laboratory ReportINDICATION: Lisa Lugo is a 66-year-old man, known to have coronaryartery disease, status post multiple stenting procedures in the past, [facility] with recurrent chest pain at rest. Heinitially had minor ST elevations in the inferior leads that resolved afteradministration of intravenous heparin and nitroglycerin. Because ofrecurrent chest pain, he was transferred emergently to our [facility] course laborer fordiagnostic angiography and intervention.PROCEDURE:1. Bilateral selective coronary [...] EMS services. He was placed on the golf course laborer table.Both groin areas were prepped and draped in usual fashion. Usingmicropuncture technique, access in the right common femoral artery wasobtained and the inner cannula was advanced. Limited femoral angiographywas performed followed by upsizing to a 6-[place]er x 11 cm sheath. Bilateralselective coronary angiography was then performed using 6-[place]er JL4 andJR4 diagnostic catheters.Heparin was administered intravenously and therapeutic ACT confirmed duringthe procedure. A 6-[place] JR4 guiding catheter was advanced and used toengage the right coronary ostium. A Sentence Labwater wire was advanced into thedistal RCA. Balloon dilatation in the distal RCA was performed usingEmerge 2.0 x 12 mm balloon and inflated at 12 atmospheres. Angiographyrevealed suboptimal results. This was treated using a PROMUS Premier 2.5 x16 mm drug-eluting stent, deployed at 11 atmospheres and post dilated usingNC Quantum [place] 2.5 x 8 mm noncompliant balloon inflated [...] in-stent restenosis was performed using [place] Quantum [place] 3.0 x8 mm noncompliant balloon inflated at 14 atmospheres followed by additionaldilatation using [place] Quantum [place] 3.0 x 12 mm noncompliant balloon inflatedat [...] 14atmospheres and post dilated using [place] Quantum [place] 3.25 x 20 mmnoncompliant balloon inflated at 20 atmospheres throughout the length ofthe stent. Final angiography after administration of intracoronarynitroglycerin showed excellent result with reduction of the stenosis to 0%.No evidence of dissection or perforation. The guiding catheter wasremoved. The procedure was concluded. The right femoral arteriotomy wasmanaged with a 6-[place] Islander Perclose device with good hemostasis. The patientwas [...] 04/15/2017/06:14 P/Jenny Coppola M.D.Date Trans: 04/16/2017 07:04 A/Kehinde_[id number]: Theron Mendoza D.O. [address] [place] [address] A [facility] [address] Tino Gunderson M.D. [facility]5 [facility] [address] Normal [facility] MAGNESIUM BLOODon 04-16-2017 Magnesium 1.9 mg/dL Normal 1.9-2.7 [facility] Comment on above: Order Comment: No: Do not add to previou s draw Performed By: #### 1 0070, [id number] ####[facility] [place] [address], [facility] POC GLUCOSE LABon 04-16-2017 Glucose mass conc 173 mg/dL High 70-100 [facility] Comment on above: Performed By: #### [id number] ####[facility] Glucose mass conc 228 mg/dL High 70-100 [facility] Comment on above: Performed By: #### [id number] ####[facility] [place] [address], [facility] POC GLUCOSE LABon 04-15-2017 Glucose mass conc 214 mg/dL High 70-100 [facility] Comment on above: Performed By: #### [id number] ####[facility] Vital Signs Date Time Vital Sign Value Performing Clinician Facility 12-18-2023 13:53-0400 Blood Pressure Location Chadd BARBOUR [facility] 12-18-2023 13:53-0400 Diastolic blood pressure 74 mm[Hg] Chadd BARBOUR [facility] 12-18-2023 13:53-0400 Heart rate 70 /min Chadd BARBOUR [facility] 12-18-2023 13:53-0400 Respiratory rate 16 /min Chadd GUERRALeti [facility] 12-18-2023 13:53-0400 Systolic blood pressure 126 mm[Hg] Chadd GUERRAL [facility] 11-05-2023 13:43-0400 Body height 177.[address] [facility] 11-05-2023 13:43-0400 Body mass index (BMI) [Ratio] 25.7 kg/m2 [facility] 11-05-2023 13:43-0400 Body weight 81.[address] [facility] 11-05-2023 13:43-0400 Diastolic blood pressure 71 mm[Hg] [facility] 11-05-2023 13:43-0400 Heart rate 71 /min [facility] 11-05-2023 13:43-0400 Respiratory rate 12 /min [facility] 11-05-2023 13:43-0400 Systolic blood pressure 121 mm[Hg] [facility] 10-01-2023 12:35-0400 Blood Pressure Location DOMINGA SAKINA [facility] 10-01-2023 12:35-0400 Diastolic blood pressure 78 mm[Hg] DOMINGA SAKINA [facility] 10-01-2023 12:35-0400 Heart rate 72 /min DOMINGA SAKINA [facility] 10-01-2023 12:35-0400 Respiratory rate 16 /min DOMINGA SAKINA [facility] 10-01-2023 12:35-0400 Systolic blood pressure 137 mm[Hg] DOMINGA SAKINA [facility] 04-02-2023 09:30-0500 Body height 177.8 cm Theron Ball Other [facility] Other 04-02-2023 09:30-0500 Body mass index (BMI) [Ratio] 25.97 kg/m2 Theron Ball Other [facility] Other 04-02-2023 09:30-0500 Body weight 82.1 kg Theron Ball Other [facility] Other 04-02-2023 09:30-0500 Diastolic blood pressure 85 mm[Hg] Theron Ball Other [facility] Other 04-02-2023 09:30-0500 Respiratory rate 12 /min Theron Ball Other [facility] Other 04-02-2023 09:30-0500 Systolic blood pressure 135 mm[Hg] Theron Ball Other [facility] Other 11-01-2022 10:00-0400 Body height 177.8 cm Theron Ball Other [facility] Other 11-01-2022 10:00-0400 Body mass index (BMI) [Ratio] 25.77 kg/m2 Theron Ball Other [facility] Other 11-01-2022 10:00-0400 Body weight 81.47 kg Theron Ball Other [facility] Other 11-01-2022 10:00-0400 Diastolic blood pressure 71 mm[Hg] Theron Ball Other [facility] Other 11-01-2022 10:00-0400 Respiratory rate 12 /min Theron Ball Other [facility] Other 11-01-2022 10:00-0400 Systolic blood pressure 124 mm[Hg] Theron Ball Other [facility] Other 10-03-2022 13:45-0400 Body height 177.8 cm Theron Ball Other [facility] Other 10-03-2022 13:45-0400 Body mass index (BMI) [Ratio] 26.23 kg/m2 Theron Ball Other [facility] Other 10-03-2022 13:45-0400 Body weight 82.92 kg Theron Ball Other [facility] Other 10-03-2022 13:45-0400 Diastolic blood pressure 76 mm[Hg] Theron Ball Other [facility] Other 10-03-2022 13:45-0400 Respiratory rate 12 /min Theron Ball Other [facility] Other 10-03-2022 13:45-0400 Systolic blood pressure 160 mm[Hg] Theron Ball Other [facility] Other 11-20-2021 12:31-0400 Blood Pressure Location Tom [id number]-labs [facility] 11-20-2021 12:31-0400 Diastolic blood pressure 80 mm[Hg] Tom ARGUETA [facility] 11-20-2021 12:31-0400 Heart rate 74 /min Tom ARGUETA [facility] 11-20-2021 12:31-0400 Respiratory rate 16 /min Tom LIZABETH [facility] 11-20-2021 12:31-0400 Systolic blood pressure 133 mm[Hg] [facility] Encounter Date Encounter Type Care Provider Facility Start: 12-18-2023 End: 12-18-2023 ambulatory Chadd BARBOUR Facility: [facility] Start: 12-18-2023 End: 12-18-2023 Patient encounter procedure [facility]add [facility] Start: 12-02-2023 End: 12-02-2023 ambulatory Natali Weir MD Facility:[facility] Start: 11-18-2023 End: 11-18-2023 ambulatory Natali Weir MD Facility: [facility] Start: 11-05-2023 End: 11-05-2023 ambulatory [facility] Work Phone: Start: 11-05-2023 End: 11-05-2023 Patient encounter procedure [facility] Physician [facility] Work Phone: Start: 11-05-2023 Non-patient / Non-visit [facility] Physician [facility] Work Phone: Start: 10-01-2023 End: 10-01-2023 ambulatory DOMINGA PRESLEY Facility:[facility] Start: 10-01-2023 End: 10-01-2023 Patient encounter procedure DOMINGA PRESLEY [facility] Start: 09-17-2023 Non-patient / Non-visit [facility] Physician [facility] Work Phone: Start: 04-03-2023 End: 04-03-2023 ambulatory [facility] Other [facility] Other Start: 04-03-2023 Telephone encounter Theron Mendoza [facility] Start: 04-02-2023 End: 04-02-2023 ambulatory Theron Matt Other [facility] Other Start: 04-02-2023 Office outpatient vi sit 25 minutes Theron Mendoza [facility] Start: 04-01-2023 End: 04-01-2023 ambulatory Theron Mendoza Other [facility] Other Start: 04-01-2023 Telephone encounter Theron Mendoza [facility] Start: 01-07-2023 End: 01-07-2023 ambulatory Theron Mendoza Other [facility] Other Start: 01-07-2023 Telephone encounter Theron Mendoza [facility] Start: 11-01-2022 End: 11-01-2022 ambulatory Theron Mendoza Other [facility] Other Start: 11-01-2022 Patient encounter procedure Theron Mendoza [facility] Start: 10-03-2022 End: 10-03-2022 ambulatory Theron Mendoza Other [facility] Other Start: 10-03-2022 Office outpatient vi sit 15 minutes Theron Mendoza [facility] Start: 10-03-2022 Telephone encounter Theron Mendoza [facility] Start: 04-30-[address] THERON MENDOZA Facili ty:[facility]1 Start: 03-29-2022 End: 03-30-[address] THERON MENDOZA Facility:[facility] Start: 11-25-2021 End: 11-26-[address] THERON MENDOZA Facility:[facility] Start: 11-24-2021 End: 11-25-[address] THERON MENDOZA Facility:[facility] Start: 11-22-2021 Adult health examination Theron Mendoza Other [facility] Other Start: 11-20-2021 End: 11-20-2021 Patient encounter procedure Tom ARGUETA [facility] Start: 09-14-2021 End: 09-15-2021 ambulatory THERON MENDOZA Facility: Start: 09-10-2017 End: 09-11-2017 Ambulatory DEFAULT PHYSICIAN Facility:[facility] Start: 04-25-2017 End: 04-26-2017 Ambulatory PROVIDER UNKNOWN Facility:[facility] Start: 04-15-2017 End: 04-16-2017 Evaluation and management of inpatient THERON MENDOZA Facility:[facility] Procedures Date Procedure Procedure Detail Performing Clinician [...] cardiov ascular examination Theron Mendoza Other Start: 10-07-2013 Colonoscopy Chadd BENITEZ Start: 04-29-2013 Colonoscopy normal (finding) Tom ARGUETA Start: 10-11-2011 Transurethral prostatectomy Tom ARGUETA Start: 09-14-2011 Cystoscopy Tom STUART Start: 05-02-2010 Cystoscopy Tom STUART Start: 04-18-2010 Cystoscopy Tom STUART Start: 09-07-2008 Laser ablation of prostate Tom ARGUETA Start: 08-31-2008 Cystoscopy Tom STUART Start: 08-25-2008 Urodynamic studies Mary ARGUETA Start: 08-03-2008 Transrectal biopsy o f prostate using ultrasound guidance Tom ARGUETA Arthroscopy of knee Tom ARGUETA Cardiac catheterization Andrew BARBOUR Depression screening Rebeccaeh dandre Mendoza Other Operation on heart Tom MARTINEZ Placement of stent i n cardiac conduit Tom ARGUETA Placement of stent i n coronary artery Chadd BARBOUR Plan of Treatment Date Care Activity Detail Author Start: 10-02-2024 ambulatory Ambulatory Facility:[facility] [place] XR Lumbar spine Views [facility] XR Pelvis 1 or 2 Views [facility] Immunizations Immunization Date Immunization Notes Care Provider Fa [facility] 04-03-2022 influenza virus vaccine, split virus (incl. purified surface antigen) Theron Mendoza Other [facility] Other 04-03-2022 influenza virus vaccine, unspecified formulation [facility] 04-03-2022 Prevnar 20 Theron Mendoza Other [facility] 03-28-2021 influenza virus vaccine, split virus (incl. purified surface antigen) Theron Mendoza Other [facility] [employer] Other 03-28-2021 influenza virus vaccine, unspecified formulation DOMINGA PRESLEY [facility] 04-03-2018 diphtheria, tetanus toxoids and acellular pertussis vaccine, unspecified formulation Theron Mendoza Other [facility] pneumococcal Conjuga te, unspecified formulation; Translations: [Need for prophylactic vaccination against Streptococcus pneumoniae (pneumococcus)] Theron Mendoza Other [facility] [employer] Other Payers Date Payer Category Payer Private Health Insurance 2016 Unknown 1958 Medicare [id number] 1959 Private Health Insurance [id number] 1959 Self-pay [id number] 1950 Unknown [id number] 2.16.84 [id number] 1950 Unknown [id number] 2.16.84 [id number] 1950 Unknown [id number] 2.16.84 [id number] 1950 Unknown [id number] 2.16.84 [id number] 1950 Unknown [id number] 2.16.84 [id number] 1950 Unknown [id number] 2.16.8 [id number] 1950 Unknown [id number] 2.16.8 [id number] 1950 Unknown [id number] 2.16.8 [id number] 1950 Unknown [id number] 2.16. [id number] 1950 Unknown [id number] 2.16. [id number] Medicare [id number] Social History Date Type Detail Facility Start: 04-10-2021 End: 12-18-2023 Tobacco smoking status Ex-smoker (finding) [facility] [employer] Sex Assigned At Male [facility] Tobacco smoking status Never [facility] Start: 11-05-2023 Tobacco smoking stat us NHIS Never smoked tobacco (finding) [facility] Start: 1950 Sex Assigned At Male [facility] Medical Equipment Procedure Code Equipment Code Equipment Origin al Text Equipment Identifier Dates BD Pen Needle Sh ort U/F 31G X 8 MM Start: 01-07-2023 Functional Status Date Assessment Result Facility 12-18-2023 Functional Status N/A [facility] General [facility] [place] 10-01-2023 Functional Status N/A [facility] 11-20-2021 Functional Status N/A [facility] Clinical Notes 11-20-2021 to 12-18-2023 Note Date & Type Note Facility 12-18-2023 Note General Surgery Offi ce/Clinic Note Chief Complaint consultation for positive Cologuard HPI Staff 73 year old male presents on consultation from Dr. Mendoza for positive Cologuard. Denies abdominal or rectal pain. No rectal bleeding or change in bowel habits. Denies nausea or vomiting. No unexplained weight loss. Last colonoscopy completed 09/2013- normal. No known family history of colon cancer. On Plavix. History of Present Illness 73 yo male with h/o CAD, DMII, htn, hyperlipidemia, GERD, BPH, referred for positive Cologuard; denies change in bms or blood in stools, no abd complaints; no abd operations, last colonoscopy 2013, wnl; on Plavix and baby asa, no NSAID use; no tobacco use; no fmhx of GI malignancy or IBD. Review of Systems PHQ Score Initial Depression Screen Score: 0 SCORE ROS - Provider Constitutional: no fever, no sweats, no weight loss. Eyes: yes glasses, no blurred vision, no visual loss. ENMT: no dentures, no hoarseness, no swallowing difficulties, no hearing loss, no ear infection(s), no nose bleeds. Cardiovascular: normal blood pressure, no chest pain, regular heartbeat, no heart murmur. Respiratory: no shortness of breath, no cough, no asthma, no wheezing. Gastrointestinal: no nausea, no vomiting, no diarrhea, no constipation, no blood in stool, no change in bowel habits, no abdominal pain, no hepatitis. Genitourinary: no kidney stones, no urine infection, no dysuria. Musculoskeletal: no pain, no weakness. Skin: no changing moles, no rash, no skin lumps. Neurologic: no seizures, no epilepsy, no headache. Psychiatric: no emotional or psychiatric problem. Heme/Lymph: no bleeding problems, no anemia, no blood clots, no transfusions. Allergy/Immunologic: no swollen lymph nodes/glands, no IV drug abuse. Other: Additional ROS info: Except as noted in the above Review of Systems and in the History of Present Illness, all other systems have been reviewed and are negative or noncontributory. Physical Exam Vitals & Measurements HR: 70(Peripheral) RR: 16 BP: 126/74 HT: 70 in HT: 177 cm WT: 81 kg WT: 178.2 lb BMI: 25.85 HEENT: normal conjunctiva, sclera clear, no scleral icterus, EOM intact, PERRLA, oral mucosa moist without lesions. Neck: trachea midline, no mass, symmetric, no thyromegaly or nodules, no adenopathy Respiratory: lungs CTA, respirations non labored. Cardiovascular: regular rate and rhythm, no murmur, no pedal edema or varicosities. Gastrointestinal: soft, non distended, no tenderness, no masses, no palpable hernias, diastasis recti no, no hepatosplenomegaly; normal bs Lymphatic: no cervical adenopathy, no supraclavicular adenopathy. Musculoskeletal: normal gait, digits and nails without infection, nodes, cyanosis, clubbing. Skin: no rashes, no lesions, no ulcers, no subcutaneous nodules, induration. Psychiatric/Neuro: oriented to time, place, person, judgement normal, affect appropriate for age, insight intact, no focal deficits. Tests: labs reviewed, review of old records completed , Discussed surgical options, risks, and possible complications with patient. Assessment/Plan 1. Positive colorectal cancer screening using Cologuard test (R19.5: Other fecal abnormalities) plan colonoscopy under anesthesia, informed consent obtained. Follow-up No qualifying data available Problem List/Past Medical History Ongoing Anemia Anticoagulated ASHD (arteriosclerotic heart disease) BMI 25.0-25.9,adult BPH with urinary obstruction CAD (coronary artery disease) Chronic prostatitis Epidermal cyst Epidermal cyst of neck Feeling of incomplete bladder emptying GERD (gastroesophageal reflux disease) Glycosuria History of gross hematuria History of nephrolithiasis Hyperlipidemia Hypertension Lumbar spondylosis Lymphocytopenia Mass of testicle Nocturia Overweight Positive colorectal cancer screening using Cologuard test Seborrheic keratosis Solar keratosis Testicle pain Type 2 diabetes mellitus Urinary retention Historical Benign hypertension BPH - benign prostatic hyperplasia Diabetes mellitus type 2 Gastroesophageal reflux disease Hyperlipidemia Procedure/Surgical History Cystoscopy (04/08/2018), Colonoscopy (10/07/2013), TURP - Transurethral resection of prostate (10/11/2011), Cystoscopy (09/14/2011), Cystoscopy (05/02/2010), Cystoscopy (04/18/2010), Laser ablation of prostate (09/07/2008), Cystoscopy (08/31/2008), Urodynamics (08/25/2008), Transrectal biopsy of prostate using ultrasound (US) guidance (08/03/2008), Arthroscopy of knee, Cardiac catheterization, Patient has a coronary artery stent (Peri2), Placement of stent in coronary artery. Medications aspirin 81 mg oral tablet, 81 mg= 1 tab(s), Oral, Daily atenolol 25 mg Tab, 25 mg= 1 tab(s), Oral, Daily atorvastatin 80 mg Tab, 80 mg= 1 tab(s), Oral, Daily Lantus Solostar Pen, 50 unit(s), SubCutaneous, Daily Pantoprazole [address] Tab, 40 mg= 1 tab(s), Oral, Daily pioglitazone 1 (more content not included)... [facility] Comment on above: Result Comment: Elec tronically Signed By: ANGLE NUÑEZ, Chadd Turner\Date and Time Signed: 12/18/23 16:28 EDT 10-01-2023 Hospital Discharge instructions Patient Education 10/01/2023 [...] urethra. Follow these instructions at home: Take rild-keq-fydxegi and prescription medicines only as told by [...] provider. Document Revised: 11/01/2021 Document Reviewed: 11/01/2021 [email or web address] Patient Education 2022 [employer]. Follow Up Care 09/17/2022 11:39:15 With:DOMINGA PRESLEY PA-C, URL Address: [address] [place] [address] [place] [address] When: Unknown [facility] 04-02-2023 Evaluation note Encounter Date Diagnosis Assessment [...] risk for cerebrovascular and cardiovascular disease. Mar, manager long term care (current) use of insulin (ICD-10 - Z79.4) [...] dyspnea, CP or lightheadedness _update office tomorrow [facility] Other 12-04-2023 Evaluation note* Encounter Date Diagnosis Assessment Notes Treatment Notes Treatment Clinical Notes Mar, Primary hypertension (ICD-10 - I10) Mar, Type 2 diabetes mellitus with hyperglycemia (ICD-10 - E11.65) Mar, Mixed hyperlipidemia (ICD-10 - E78.2) Mar, ASHD (arteriosclerotic heart disease) (ICD-10 - I25.10) Mar, High risk medication use (ICD-10 - Z79.899) [facility] Other 09-11-2023 Evaluation note* Encounter Date Diagnosis Assessment Notes Treatment Notes Treatment Clinical Notes Dec, Type 2 diabetes mellitus with hyperglycemia (ICD-10 - E11.65) [facility] Other 07-06-2023 Evaluation note* Encounter Date Diagnosis [...] risk for cerebrovascular and cardiovascular disease. Oct, long-term (current) use of insulin (ICD-10 - Z79.4) Oct, Primary hypertension (ICD-10 - I10) This patient is instructed to consume a healthy, low-fat, low-salt diet. They are also encouraged to continue exercise to achieve/maintain a normal BMI. Oct, Screening PSA (prostate specific antigen) (ICD-10 - Z12.5) Completed w/ , normal [facility] Other 06-07-2023 Evaluation note* Encounter Date Diagnosis [...] to achieve/maintain a normal BMI. Avoid NSAIDs [facility] Other 07-25-2022 Hospital Discharge instructions Patient Education [...] Follow these instructions at home: Medicines Take hifk-kam-urscwjh and prescription medicines only as told by [...] or the blood stops without treatment. Take avfu-ekh-mpztjzj and prescription medicines only as told by your health care provider. Drink enough fluid to keep your urine clear or pale yellow. This information is not intended to replace advice given to you by your health care provider. Make sure you discuss any questions you have with your health care provider. Document Released: 04/15/2006 Document Revised: 09/09/2019 Document Reviewed: 05/18/2017 [email or web address] Patient Education 2019 [employer]. Follow Up Care 09/21/2021 10:23:43 With:LIZABETH NUÑEZ, Tom Cohen, URL Address: [facility] [address] [place] [address]- [phone] When: Unknown [facility] evaluation + Plan note Future Appointments Appointment Date:11/28/2021 08:45:00 AM Scheduled Provider: Location:[facility] Appointment Type:Urology CALL PAT FT Appointment Date:12/12/2021 10:30:00 AM Scheduled Provider: Location:[facility] Appointment Type:Urology FT Appointment Date:04/13/2022 10:45:00 AM Scheduled Provider:Tom ARGUETA MD Location:[facility] Appointment Type:URO Office Visit [facility] evaluation + Plan note Future Appointments Appointment Date:10/02/2024 10:15:00 AM Scheduled Provider:Tom ARGUETA MD Location:[facility] Appointment Type:URO Office Visit Diagnostic Tests Pending * PSA Total 10/01/23 [facility] evaluation + Plan note Future Appointments Appointment Date:10/02/2024 10:15:00 AM Scheduled Provider:Tom ARGUETA MD Location:[facility] Appointment Type:URO Office Visit [facility] Evaluation noteNo InformationHouston [employer] Other Evaluation note* Diagnosis Onset Date Resolution Status Anemia acute ASHD (arteriosclerotic heart disease) acute GERD (gastroesophageal reflux disease) acute Hypercholesterolemia acute Hypertension acute Type 2 diabetes mellitus with hyperglycemia acute Medicare annual wellness visit, subsequent noneactive Screening for colon cancer n oneactive [facility] Work Phone: [employer] general Narrative - Reported* Type Description Date Medical History ASHD Medical History HTN Medical History Hyperlipidemia Medical History T2DM Medical History GERD Surgical History ANGIOPLASTY Surgical History [facility] PCI/stent RCA and LAD 2006 Surgical History [facility] PCI/stent RCA 2016 Surgical History [facility] PCI/stent OM and LCx 2016 Surgical History C PCI/stent RCA x 2 2017 Surgical History [facility] PCI/stent LAD 2017 Surgical History TURP, TRUS/bx 2009 Surgical History Arthroscopy right knee 2005, 20 14 Surgical History Arthroscopy left knee 2004 Hospitalization History see surgical history [facility] Other Hospital course Narrative No data available for this section [facility] Hospital Discharge instructions No data available for this section [facility] Progress note No data available for this section [facility] [place] reason for referral (narrative)* Reason Referral for interna l derangement right knee Diagnosis 1 Internal derangement of right knee (M23.91) Referral Organization [facility] bhargav Referring Provider First Name Theron Referring Provider Last Name Matt Referring Provider Specialty Internal Me dicine Referred [...] Notes MRI right knee to be included [facility] Other Summary Purpose Family History No Family History Records Found Relationship Condition Age at Onset Recorded Date/T [place] father Unknown mother Unknown Advance Directives No Advanced Directives Records Found Advance Directive Response Recorded Date/ Time Advance [...] section and content) DATE CREATED AUTHOR 10/16/2017 [facility] DATE CREATED AUTHOR AUTHOR'S ORGANIZ ATION 04/04/2019 [facility] DATE CREATED AUTHOR AUTHOR'S ORGANIZ ATION 04/30/2022 [facility] DATE CREATED AUTHOR AUTHOR'S ORGANIZ ATION 12/20/2023 [facility] DATE CREATED AUTHOR AUTHOR'S ORGANIZ ATION 12/21/2023 [facility] Care Team (unrecognized sect ion and content) Team Status: Active Member Role Status Dates Theron Mendoza DO Primary Care Provider Active Team Status: [...] (unrecogniz ed section and content) Wants in Todayjemison Daria MACHADOTwyla InformationNo InformationBlood Work?Check UpUpdate Goals (unrecognized section [...] BE BASED ON THE PRIMARY CLINICAL RECORDS. [employer] provides no warranty or guarantee of the accuracy or completeness of information in this document.
== END 2023-12-24 13:11 | disposition home or self-care (01) ==
LOC: PST 13:11
PROVIDERS: PCP Internal Medicine; Visit Provider Surgery
DX: Z01.818 Encounter for other preprocedural examination (principal); R19.5 Other fecal abnormalities

== ENCOUNTER 2024-01-01 07:22 | Day surgery (SDC) | payer MEDICARE, OTHER, SELFPAY ==
--- NOTE | 2024-01-01 | OP_ITS ---
OPERATION DATE: 01/01/2024 PREOPERATIVE DIAGNOSIS: Positive Cologuard. POSTOPERATIVE DIAGNOSIS: Normal colonoscopy to cecum. PROCEDURE: Colonoscopy to cecum. SURGEON: Chadd Russell M.D. ANESTHESIA: Monitored anesthesia care. ESTIMATED BLOOD LOSS: Zero. INDICATIONS AND CONSENT: Patient is a 73-year-old male presents for evaluation of positive Cologuard. Indications, risks, benefits, alternatives of proceeding with colonoscopy were explained extensively to the patient, including the risks of bleeding, colon perforation or anesthetic complications. All of his questions were answered. Informed consent was obtained. PROCEDURE: Patient was brought to the operating room, placed in the left lateral decubitus position. Monitored anesthesia care was provided. Rectal exam was performed which showed no masses or blood. The scope was inserted into the anal canal. Under direct visualization was advanced. It was advanced to the cecum where cecal markings were clearly identified. Upon withdrawal of the scope, mucosal surfaces were carefully examined. There were no mass lesions or polyps. No inflammatory changes or ulcerations. There were rare sigmoid diverticula without inflammatory changes or scarring. The scope was retroflexed in the anal canal. There was no significant hemorrhoidal disease. Scope was then withdrawn. Patient tolerated procedure well, was sent to recovery room in good condition.f/u screening colonoscopy should be in 10 years. CC: Dr. Tommy MOON
--- OUTSIDE RECORDS SUMMARY | 2024-01-01 07:26 | XMS_ITS | CCD ---
Author Organization [facility] Care Team Providers Care Talent Development Specialist Name Role Phone THERON MENDOZA Unavailable Unavailable TINO GUNDERSON Unavailable Unavailable MO SANCHEZ AM Unavailable Unavailable MO SANCHEZ AM Unavailable Unavailable [place] Unavailable Unavailable UNKNOWN, PROVIDER Unavailable Unavailable UNKNOWN, PROVIDER Unavailable Unavailable UNKNOWN, PROVIDER Unavailable Unavailable GUIDO, THERON Unavailable Unavailable GUIDO, THERON Unavailable Unavailable PHYSICIAN, DEFAULT Unavailable Unavailable PHYSICIAN, DEFAULT Unavailable Unavailable GUIDO, THERON Unavailable Unavailable GUIDO, THERON Primary Care Physician GUIDO, DR CRUMP Primary Care Unavailable LIZABETH, DR OWUSU Admitting Unavailable LIZABETH, DR OWUSU Attending Unavailable ARGUETA, DR OWUSU [...] Care Unavailable BALL, DR CRUMP Admitting Unavailable Guido, Theron Unavailable Tom ARGUETA Attending Unavailable DOMINGA PRESLEY Attending Unavailable NILChadd Landeros Attending Unavailable Carmella NUÑEZ, Natali Luo Attending Unavailable Carmella NUÑEZ, Natali Luo Attending Unavailable Carmella NUÑEZ, Natali Luo Attending Unavailable Allergies Allergy Classification Reported Allergen(s) Allergy Type Date of Onset Reaction(s) Facility (1 source) 85520,00; Translations: [12309,00] Propensity to adverse reactions (disorder) 11200 9 [facility] Repository (12 sources) metFORMIN; Translations: [metFORMIN] Drug Allergy diarrhea, Unknown [facility] Repository (3 sources) patient allergy list reviewed by nurse or physicia Propensity to adverse reactions 8 Comment:Done [employer] Other (1 source) No Known Medication Allergies; Translations: [No Known Medication Allergies] Propensity to adverse reactions (disorder) [facility] Repository Medications Current Medications Medication [...] Ordered take 1 tablet by luis felipe every twenty-four hours Aspirin 81 MG 1 [...] procedure, # 2 cap(s), Refills(s) 0, Pharmacy: [facility]/pharmacy #[id number], 177, cm, 11/20/21 12:47:00 EDT, Height/Length [...] as directed Orally 1 for 1 August, Active Problems Active Problems Problem Classification [...] disease (20 sources) Atherosclerotic heart disease of [place] coronary artery with unstable angina pectoris; Translations: [Atherosclerotic heart disease of [place] coronary artery without angina pectoris] Onset: 08-25-2013 [...] Onset: 09-18-2013 Chronic Other aftercare (6 sources) 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; Translations: [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 Normal [facility] Cholesterol in LDL Calc [Mas s/Vol]on 11-05-2023 Cholesterol in LDL [Mass/Vol] 42.0 mg/dL [facility] Comment on above: <100 mg/dl [id number] mg/dl NEAR OR ABOVE [id number] mg/dl BORDERLINE [id number] mg/dl HIGH>190 mg/dl VERY HIGH Cholesterol in VLDL Calc [Ma ss/Vol]on 11-05-2023 Cholesterol in VLDL [Mass/Vol] 35.6 mg/dL [facility] Estimated glomerular filtrat ion rate (GFR) non- Americanon 11-05-2023 GFR/1.73 sq M.predicted among non-blacks MDRD (S/P/Bld) [Vol rate/Area] mL/min/{1.73_m2} >=60 [facility] Globulin Calc (S) [Mass/Vol] on 11-05-2023 Globulin (S) [Mass/Vol] 3.3 g/dL [facility] Glucose mean value [Mass/vol ume] in Blood Estimated from glycated hemoglobinon 11-05-2023 Average glucose Estimated from glycated hemoglobin (Bld) [Mass/Vol] 143 mg/dL [facility] Laboratory - Chemistry and C hemistry - challengeon 11-05-2023 Albumin [Mass/Vol] 4.0 g/dL 3.4-5.0 [facility] ALP [Catalytic activity/Vol] 74 U/L 46-116 [facility] ALT [Catalytic activity/Vol] 48 U/L 16-63 [facility] AST [Catalytic activity/Vol] 34 U/L 15-37 [facility] Bilirubin [Mass/Vol] 0.9 mg/dL 0.2-1.0 [facility] Calcium [Mass/Vol] 8.6 mg/dL 8.5-10.1 [facility] Chloride [Moles/Vol] 103 mmol/L 98-107 [facility] Cholesterol [Mass/Vol] 119 mg/dL <=200 [facility] Cholesterol in HDL [Mass/Vol] 42 mg/dL 40-60 [facility] Comment on above: > or =60 mg/dl - LOW CARDIOVASCULAR RISK <40 mg/dl - HIGH CARDIOVASCULAR RISK CO2 [Moles/Vol] 28.3 mmol/L 21.0-32.0 [facility] Creatinine [Mass/Vol] 1.10 mg/dL 0.70-1.30 [facility] GFR/1.73 sq M.predicted MDRD (S/P/Bld) [Vol rate/Area] mL/min/{1.73_m2} >=60 [facility] Glucose [Mass/Vol] 139 mg/dL High 74-106 [facility] Potassium [Moles/Vol] 4.1 mmol/L 3.5-5.1 [facility] Protein [Mass/Vol] 7.3 g/dL 6.4-8.2 [facility] Sodium [Moles/Vol] 141 mmol/L 136-145 [facility] Triglyceride [Mass/Vol] 178 mg/dL High <=150 [facility] Urea nitrogen [Mass/Vol] 21.0 mg/dL High 7.0-18.0 [facility] Urea nitrogen/Creatin ine [Mass ratio] 19.1 mg/mg [facility] Laboratory - Hematology and Cell countson 11-05-2023 HbA1c (Bld) [Mass fraction] 6.6 % High 4.5-6.2 [facility] Comment on above: ADA RECOMMENDED LIMIT 4.0 - 6.0ADA THERA PEUTIC TARGET < 7.0ACTION SUGGESTED> 7.0 Microalbumin [Mass/volume] i n Urineon 11-05-2023 Albumin DL <= 20 mg/L (U) [Mass/Vol] 3.4 mg/dL <=30.0 [facility] Serum or plasma albumin/glob ulin mass ratioon 11-05-2023 Albumin/Globulin [Mass ratio] 1.2 {ratio} [facility] Serum or plasma anion gap de terminationon 11-05-2023 Anion gap [Moles/Vol] 13.8 mmol/L [facility] Serum or plasma total choles terol/high density lipoprotein (HDL) cholesterol mass aquiles 11-05-2023 Cholesterol.tota l/Cholesterol in HDL [Mass ratio] 2.8 {ratio} [facility] Comment on above: 3.3 - 4.4 LOW RISK4.4 - 7.1 AVERAGE RISK 7.1 - 11.0 MODERATE RISK>11.0 HIGH RISK Screenson 10-02-2023 Screens [id number] Normal [facility] Screens [id number] Normal [facility] Ambulatory Visit Summaryon 0 10-01-2023 Ambulatory Visit [...] NUÑEZ, Tom Cohen Where: [facility] Patient Educationon 10-01-19 Patient Education Urology Benign [...] Follow these instructions at home: ? Take iwol-oej-iefritj and prescription medicines only as told by [...] the medicine (more content not included)... Normal [facility] Urology Office/Clinic Noteon 10-01-2023 Urology Office/Clinic Note [...] Contact Information SAKINA RANDALL, DOMINGA Multani, URL [address] [place] [address] Additional Instructions: 1 yr PSA Patient Education Benign Prostatic Hyperplasia Documentation recorded by the scrnatasha Marcus accurately reflects the services(s) I performed [...] virus vaccine (more content not included)... Normal [facility] Comment on above: Result Comment: Electronically Signed By : DOMINGA PRESLEY PA-C\.br\Date and Time Signed: 10/01/23 13:08 EDT\.br\Electronically Co-Signed By: Trish Marcus\.br\Date and Time Co-Signed: 10/01/23 13:03 EDT Lab Reportson 09-18-2023 Lab Reports [id number] Normal [facility] RAD - Ultrasound Reporton RAD - Ultrasound Report [id number]#[id number] Normal [facility] No Panel Informationon 09-16 Free Prostate Specific Antigen 0.78 ng/mL N/A [facility] Comment on above: Augustina ECLIA methodology. Prostate Specific Antigen Total 1.9 ng/mL 0.0-4.0 [facility] Comment on above: Augustina ECLIA methodology.According to the [employer] [employer], Serum PSAshould decrease and remain [...] PSA/Total PSA [Mass fraction] 41.1 % . [facility] Comment on above: The table below [...] any other population of men.Performed at: - [facility] [place], [place] [id number] Director: Guanakito Cota PhD, Phone: [phone] Reminderson 08-22-2023 Reminders - From: Sade Kilgore [...] that appt. LM on informing pt that [facility] will be reaching out to get MINESH scheduled. Appt 09/20/23 to review results. Order & demo's faxed to the [facility] CS. MINESH scheduled 09/17/23 @ [facility] Normal [facility] GLYCOHEMOGLOBIN A1Con 2021 ADA RECOMMENDATION SEE BELOW Normal [facility] Comment on above: Result Comment: ADA RECOMMENDED LIMIT 4. 0 - 6.0 ADA THERAPEUTIC TARGET < 7.0 ACTION SUGGESTED > 7.0 Performed By: #### A 1C #### [facility] [address] [place] [address] Dr. Yara Chavez Glucose [Mass/Vol] 166 mg/dL Normal [facility] Comment on above: Performed By: #### A1C #### [facility] [address] [place], [place] [address] Dr. Yara Chavez HbA1c (Bld) [Mass fraction] 7.4 % Critically high 4.5-6.2 [facility] Comment on above: Performed By: #### A1C #### [facility] [address] [place], [place] [address] ABD/PELV W CONon [...] PARAS SOMMERS Date: 2021-11-26 02:01 Normal [facility] CBC AUTO DIFFon 11-24-2021 BASO # 0.0 103/ul Normal 0.0-0.1 [facility] Comment on above: Performed By: #### CBC #### [facility] [address] [place] [address] Dr. Yara Chavez Basophils/100 WBC (Bld) 0.7 % Normal 0.2-2.0 [facility] Comment on above: Performed By: #### CBC #### [facility] [address] [place] [address] Dr. Yara Chavez EO # 0.0 103/ul Normal 0.0-0.7 [facility] Comment on above: Performed By: #### CBC #### [facility] [address] [place] [address] Dr. Yara Chavez Eosinophils/100 WBC (Bld) 1.0 % Normal 0.9-7.0 [facility] Comment on above: Performed By: #### CBC #### [facility] [address] [place] [address] [address] Yara Chavez Erythrocyte distribution width (RBC) [Ratio] 14.7 % Normal 11.0-15.0 [facility] Comment on above: Performed By: #### CBC #### [facility] [address] [place] [address] Dr. Yara Chavez Hematocrit (Bld) [Volume fraction] 38.7 % Critically low 42.0-54.0 [facility] Comment on above: Performed By: #### CBC #### [facility] [address] [place] [address] Dr. Yara Chavez Hemoglobin (Bld) [Mass/Vol] 12.3 g/dL Critically low 14.0-18.0 [facility] Comment on above: Performed By: #### CBC #### [facility] [address] [place] [address] Dr. Yara Chavez IG # 0.01 10e3/ul Normal 0.00-0.03 [facility] Comment on above: Performed By: #### CBC #### [facility] [address] [place] [address] Dr. Yara Chavez IG % 0.3 % Normal 0.0-0.5 [facility] Comment on above: Performed By: #### CBC #### [facility] [address] [place] [address] Dr. Yara Chavez LYMPH # 1.1 103/ul Critically low 1.2-3.8 [facility] Comment on above: Performed By: #### CBC #### [facility] [address] [place] [address] Dr. Yara Chavez Lymphocytes/100 WBC (Bld) 36.1 % Normal 20.5-60.0 [facility] Comment on above: Performed By: #### CBC #### [facility] [address] [place] [address] Dr. Yara Chavez MANUAL DIFF REQ NO Normal [facility] Comment on above: Performed By: #### CBC #### [facility] [address] [place] [address] Dr. Yara Chavez MCH (RBC) [Entitic mass] 28.0 pg Normal 25.9-34.0 [facility] Comment on above: Performed By: #### CBC #### [facility] [address] [place] [address] Dr. Yara Chavez MCHC (RBC) [Mass/Vol] 31.8 g/dL Normal 29.9-35.2 [facility] Comment on above: Performed By: #### CBC #### [facility] [address] [place] [address] Dr. Yara Chavez MCV (RBC) [Entitic vol] 88.2 fL Normal 80.0-94.0 [facility] Comment on above: Performed By: #### CBC #### [facility] [address] [place] [address] Dr. Yara Chavez MONO # 0.3 103/ul Normal 0.3-0.8 [facility] Comment on above: Performed By: #### CBC #### [facility] [address] [place] [address] Dr. Yara Chavez Monocytes/100 WBC (Bld) 9.5 % Normal 1.7-12.0 [facility] Comment on above: Performed By: #### CBC #### [facility] [address] [place] [address] Dr. Yara Chavez NEUT # 1.5 103/ul Normal 1.4-6.5 [facility] Comment on above: Performed By: #### CBC #### [facility] [address] [place] [address] Dr. Yara Chavez Neutrophils/100 WBC (Bld) 52.4 % Normal 43.0-75.0 [facility] Comment on above: Performed By: #### CBC #### [facility] [address] [place] [address] Dr. Yara Chavez Platelet mean volume (Bld) [Entitic vol] 10.1 fL Normal 9.5-13.5 [facility] Comment on above: Performed By: #### CBC #### [facility] [address] [place] [address] Dr. Yara Chavez PLT 195 103/ul Normal 150-450 [facility] Comment on above: Performed By: #### CBC #### [facility] [address] [place] [address] Dr. Yara Chavez RBC 4.39 106/ul Critically low 4.70-6.10 [facility] Comment on above: Performed By: #### CBC #### [facility] [address] [place] [address] Dr. Yara Chavez WBC 2.9 103/ul Critically low 4.0-11.0 [facility] Comment on above: Performed By: #### CBC #### [facility] [address] [address] [address] Yara Chavez LIPID PROFILEon 11-24-2021 CHOL-HDL RATIO NORM SEE BELOW Normal [facility] Comment on above: Result Comment: 3.3 - 4.4 LOW RISK 4.4 - 7.1 AVERAGE RISK 7.1 - 11.0 MODERATE RISK >11.0 HIGH RISK Performed By: #### A LT, BMP, LIPID #### [facility] [address] [address] [address] Yara Chavez Cholesterol [Mass/Vol] 124 mg/dL Normal <=200 [facility] Comment on above: Performed By: #### ALT, BMP, LIPID #### [facility] [address] [address] [address] Yara Chavez Cholesterol in HDL [Mass/Vol] 41 mg/dL Normal 40-60 [facility] Comment on above: Performed By: #### ALT, BMP, LIPID #### [facility] [address] [address] [address] Yara Chavez Cholesterol in LDL [Mass/Vol] 56.8 mg/dL Normal [facility] Comment on above: Performed By: #### ALT, BMP, LIPID #### [facility] [address] [place] [address] Dr. Yara Chavez Cholesterol.tota l/Cholesterol in HDL [Mass ratio] 3.0 {ratio} Normal [facility] Comment on above: Performed By: #### ALT, BMP, LIPID #### [facility] [address] [address] [address] Yara Chavez HDL NORMAL > or = 60 mg/dl - LO W CARDIOVASCULAR RISK <40 mg/dl - HIGH CARDIOVASCULAR RISK Normal [facility] Comment on above: Performed By: #### ALT, BMP, LIPID #### [facility] [address] [place] [address] Dr. Yara Chavez LDL CALC NORMAL SEE BELOW Normal [facility] Comment on above: Result Comment: <100 mg/dl OPTIMAL 100 - 129 mg/dl NEAR OR ABOVE OPTIMAL 130 - 159 mg/dl BORDERLINE HIGH 160 - 189 mg/dl HIGH >190 mg/dl VERY HIGH Performed By: #### A LT, BMP, LIPID #### [facility] [address] [address] [address] Yara Chavez Triglyceride [Mass/Vol] 131 mg/dL Normal <=150 [facility] Comment on above: Performed By: #### ALT, BMP, LIPID #### [facility] [address] [address] [address] Yara Chavez VLDL CALC 26.2 mg/dL Normal [facility] Comment on above: Performed By: #### ALT, BMP, LIPID #### [facility] [address] [address] [address] Yara Chavez MICROALBUMIN, RAND URon 10-28 mALB 1.4 mg/L Normal <=30.0 [facility] Comment on above: Performed By: #### MALBR #### [facility] [address] [place] [address] Dr. Yara Chavez PROF CHEM 8 (BAS METB)on Anion gap [Moles/Vol] 10.1 mmol/L Normal [facility] Comment on above: Performed By: #### ALT, BMP, LIPID #### [facility] [address] [address] [address] Yara Chavez Calcium [Mass/Vol] 9.0 mg/dL Normal 8.5-10.1 [facility] Comment on above: Performed By: #### ALT, BMP, LIPID #### [facility] [address] [address] [address] Yara Chavez Chloride [Moles/Vol] 105 mmol/L Normal 98-107 [facility] Comment on above: Performed By: #### ALT, BMP, LIPID #### [facility] [address] [address] [address] Yara Chavez CO2 [Moles/Vol] 31.3 mmol/L Normal 21.0-32.0 [facility] Comment on above: Performed By: #### ALT, BMP, LIPID #### [facility] [address] [address] [address] Yara Chavez Creatinine [Mass/Vol] 1.24 mg/dL Normal 0.70-1.30 [facility] Comment on above: Performed By: #### ALT, BMP, LIPID #### [facility] [address] [address] [address] Yara Chavez EGFR-AF KYRGYZ >60 Normal >=60 [facility] Comment on above: Performed By: #### ALT, BMP, LIPID #### [facility] [address] [address] [address] Yara Chavez EGFR-NON AF KYRGYZ 58 mL/min/1.73m2 Critically low >=60 [facility] Comment on above: Performed By: #### ALT, BMP, LIPID #### [facility] [address] [address] [address] Yara Chavez Glucose [Mass/Vol] 102 mg/dL Normal 74-106 [facility] Comment on above: Performed By: #### ALT, BMP, LIPID #### [facility] [address] [address] [address] Yara Chavez Potassium [Moles/Vol] 4.4 mmol/L Normal 3.5-5.1 [facility] Comment on above: Performed By: #### ALT, BMP, LIPID #### [facility] [address] [address] [address] Yara Chavez Sodium [Moles/Vol] 142 mmol/L Normal 136-145 [facility] Comment on above: Performed By: #### ALT, BMP, LIPID #### [facility] [address] [address] [address] Yara Chavez Urea nitrogen [Mass/Vol] 22.0 mg/dL Critically high 7.0-18.0 [facility] Comment on above: Performed By: #### ALT, BMP, LIPID #### [facility] [address] [address] [address] Yara Chavez Urea nitrogen/Creatin ine [Mass ratio] 17.7 mg/mg Normal [facility] Comment on above: Performed By: #### ALT, BMP, LIPID #### [facility] [address] [address] [address] Yara Chavez [facility] 11-24-2021 ALT [Catalytic activity/Vol] 48 U/L Normal 16-63 [facility] Comment on above: Performed By: #### ALT, BMP, LIPID #### [facility] [address] [address] [address] Yara Chavez GLYCOHEMOGLOBIN A1Con 2021 ADA RECOMMENDATION SEE BELOW Normal [facility] Comment on above: Result Comment: ADA RECOMMENDED LIMIT 4. 0 - 6.0 ADA THERAPEUTIC TARGET < 7.0 ACTION SUGGESTED > 7.0 Performed By: #### A 1C #### [facility] [address] [address] [address] Yara Chavez Glucose [Mass/Vol] 169 mg/dL Normal [facility] Comment on above: Performed By: #### A1C #### [facility] [address] [place] [address] Dr. Yara Chavez HbA1c (Bld) [Mass fraction] 7.5 % Critically high 4.5-6.2 [facility] Comment on above: Performed By: #### A1C #### [facility] [address] [place] [address] Dr. Yara Chavez PROF CHEM 8 (BAS METB)on Anion gap [Moles/Vol] 12.0 mmol/L Normal [facility] Comment on above: Performed By: #### BMP #### [facility] [address] [place] [address] Dr. Yara Chavez Calcium [Mass/Vol] 8.7 mg/dL Normal 8.5-10.1 [facility] Comment on above: Performed By: #### BMP #### [facility] [address] [place] [address] Dr. Yara Chavez Chloride [Moles/Vol] 103 mmol/L Normal 98-107 [facility] Comment on above: Performed By: #### BMP #### [facility] [address] [address] [address] Yara Chavez CO2 [Moles/Vol] 29.1 mmol/L Normal 21.0-32.0 [facility] Comment on above: Performed By: #### BMP #### [facility] [address] [place] [address] Dr. Yara Chavez Creatinine [Mass/Vol] 1.17 mg/dL Normal 0.70-1.30 [facility] Comment on above: Performed By: #### BMP #### [facility] [address] [place] [address] Dr. Yara Chavez EGFR-AF KYRGYZ >60 Normal >=60 [facility] Comment on above: Performed By: #### BMP #### [facility] [address] [place] [address] Dr. Yara Chavez EGFR-NON AF KYRGYZ >60 Normal >=60 [facility] Comment on above: Performed By: #### BMP #### [facility] [address] [place] [address] Dr. Yara Chavez Glucose [Mass/Vol] 144 mg/dL Critically high 74-106 [facility] Comment on above: Performed By: #### BMP #### [facility] [address] [place] [address] Dr. Yara Chavez Potassium [Moles/Vol] 4.1 mmol/L Normal 3.5-5.1 [facility] Comment on above: Performed By: #### BMP #### [facility] [address] [place] [address] Dr. Yara Chavez Sodium [Moles/Vol] 140 mmol/L Normal 136-145 [facility] Comment on above: Performed By: #### BMP #### [facility] [address] [place] [address] Dr. Yara Chavez Urea nitrogen [Mass/Vol] 18.0 mg/dL Normal 7.0-18.0 [facility] Comment on above: Performed By: #### BMP #### [facility] [address] [place] [address] Dr. Yara Chavez Urea nitrogen/Creatin ine [Mass ratio] 15.4 mg/mg Normal [facility] Comment on above: Performed By: #### BMP #### [facility] [address] [place] [address] Dr. Yara Chavez CNOVSPon 04-02-2019 CNOVSP Visit (SP) Office (H EMASA) LISA LUGO ([id number]) 1950 M Date Time Provider Department 04/02/19 11:15 AM FRANCIS HEBERT During your visit today, we recorded the following information about you: Temperature Pulse Respiration Blood pressure 98.1 degrees 72/minute 16/minute 131/69 Weight Height 80.5 kg 1.778 m Francis Hebert DO 04/03/2019 1:15 PM Signed PATIENT NAME: Lisa Lugo REFERRING PHYSICIAN: Theron Mendoza MD ([facility]) [address] [place] [address] PRIMARY CARE PHYSICIAN: Theron Mendoza MD CHIEF [...] PANEL - CBC + DIFF (FOR REMOTE [facility] USE) - IRON + TIBC - FERRITIN [...] questions satisfactorily.. Francois Hebert D.O. Medical Oncologist [place], [place] Referring Provider: THERON MENDOZA [[id number]] Allergies As of Date: 04/02/2019 (No Known Allergies) Date Reviewed: 04/02/2019 Reviewed by: Dorene Germain - Fully Assessed Reason for Visit: abdnormal lab [Other] Cmt: new patient consultation Primary Visit Diagnosis:Leukopenia, unspecified type [D72.819] Other Visit Diagnosis:Abnormal finding of blood chemistry, unspecified [R79.9] Order(s):PROTEIN ELECTROPHORESIS W/INTERP [SQSEPG] Order #: [id number] FUTURE MONOCLONAL PROTEIN, SERUM (BLOOD) [SQSERMPA] Order #: [id number] FUTURE IMMUNOGLOBULINS SHANIA [SQSERIMM] Order #: [id number] FUTURE LD LACTATE DEHYDRO [SQLD6] Order #: [id number] FUTURE COMP METABOLIC PANEL [SQCMP] Order #: [id number] FUTURE CBC + DIFF (FOR REMOTE [facility] USE) [SQRCBCDF] Order #: [id number] FUTURE IRON + TIBC [SQIRON] Order #: [id number] FUTURE FERRITIN BLD [SQFERR] Order #: [id number] FUTURE VITAMIN B12 BLOOD [SQB12] Order #: [id number] FUTURE FOLATE SERUM [SQSERFOL] Order #: [id number] FUTURE METHYLMALONIC ACID [SQMMA] Order #: [id number] FUTURE HEP REMOTE PANEL BL [SQHREMOP] Order #: [id number] FUTURE SED RATE WESTERGREN [SQWSR] Order #: [id number] FUTURE Disposition: Return labs today. f/u 6 [...] by FRANCIS HEBERT DO on 04/03/19 Normal [facility] Comp Metabolic Panelon 04-02 Albumin [Mass/Vol] 4.4 g/dL Normal 3.9-4.9 [facility] ALP [Catalytic activity/Vol] 102 U/L Normal 38-113 [facility] ALT [Catalytic activity/Vol] 53 U/L Normal 10-54 [facility] Anion gap [Moles/Vol] 13 mmol/L Normal 9-18 [facility] AST [Catalytic activity/Vol] 31 U/L Normal 14-40 [facility] Bilirubin [Mass/Vol] 0.6 mg/dL Normal 0.2-1.3 [facility] Calcium [Mass/Vol] 9.6 mg/dL Normal 8.5-10.2 [facility] Chloride [Moles/Vol] 98 mmol/L Normal 97-105 [facility] CO2 [Moles/Vol] 24 mmol/L Normal 22-30 [facility] Creatinine [Mass/Vol] 0.94 mg/dL Normal 0.73-1.22 [facility] eGFR- Amer. >60 Normal [facility] GFR/1.73 sq M predicted among non-blacks MDRD (S/P/Bld) [Vol rate/Area] mL/min/{1.73_m2} Normal [facility] Comment on above: Result Comment: eGFR [...] GFR. Glucose [Mass/Vol] 257 mg/dL High 74-99 [facility] Comment on above: Result Comment: The [place] Diabetes As sociation (ADA) provides guidance for [...] Standards of Medical Care in Diabetes 2016, [place] [employer]. Diabetes Care. 2016.39(Suppl 1). Potassium [Moles/Vol] 4.8 mmol/L Normal 3.7-5.1 [facility] Protein [Mass/Vol] 7.4 g/dL Normal 6.3-8.0 [facility] Sodium [Moles/Vol] 135 mmol/L Low 136-144 [facility] Urea nitrogen [Mass/Vol] 19 mg/dL Normal 9-24 [facility] Ferritinon 04-02-2019 Ferritin [Mass/Vol] 279.0 ng/mL Normal 30.3-565.7 [facility] Comment on above: Performed By: #### WSR, B12, SERFOL, IRO N, FERR, SERIMM, HREMOP, SERMPA, SEPG, MMA #### [place] [phone] Folate, Serumon 04-02-2019 Folate [Mass/Vol] ng/mL Normal >4.7 [facility] Comment on above: Result Comment: A result of > 20 ng/mL i s not necessarily indicative of a pathologic or treatable condition: it reflects a limitation of the test methodology. Assay reference range: 4.8 to 24.2 ng/mL. Suitable for detection of folate deficiency. Reference: Folate III (Folate III) [package insert V 2.0 Bangladeshi]. [facility], [place], [place]: February 2015. Performed By: #### W SR, B12, SERFOL, IRON, FERR, SERIMM, HREMOP, SERMPA, SEPG, MMA #### [place] [phone] Hepatitis Remote Panelon HBsAg Negative Normal Negative [facility] Comment on above: Performed By: #### WSR, B12, SERFOL, IRO N, FERR, SERIMM, HREMOP, SERMPA, SEPG, MMA #### [place] [phone] Hep B Core Ab,Total Negative Normal Negative [facility] Comment on above: Performed By: #### WSR, B12, SERFOL, IRO N, FERR, SERIMM, HREMOP, SERMPA, SEPG, MMA #### [place] [phone] Hepatitis C Ab [place] Negative Normal Negative [facility] Comment on above: Performed By: #### WSR, B12, SERFOL, IRO N, FERR, SERIMM, HREMOP, SERMPA, SEPG, MMA #### [place] [phone] HepB Surface Ab,Qual Negative Normal Negative [facility] Comment on above: Result Comment: NEGATIVE Performed By: #### W SR, B12, SERFOL, IRON, FERR, SERIMM, HREMOP, SERMPA, SEPG, MMA #### [place] [address] [place] [address] Immunoglobulins GAMon 2018 IgA [Mass/Vol] 323 mg/dL Normal 78-391 [facility] Comment on above: Performed By: #### WSR, B12, SERFOL, IRO N, FERR, SERIMM, HREMOP, SERMPA, SEPG, MMA #### [place] [phone] IgG [Mass/Vol] 981 mg/dL Normal 717-1411 [facility] Comment on above: Performed By: #### WSR, B12, SERFOL, IRO N, FERR, SERIMM, HREMOP, SERMPA, SEPG, MMA #### [place] [phone] IgM [Mass/Vol] 133 mg/dL Normal 53-334 [facility] Comment on above: Performed By: #### WSR, B12, SERFOL, IRO N, FERR, SERIMM, HREMOP, SERMPA, SEPG, MMA #### [place] [phone] Iron and TIBCon 04-02-2019 Iron [Mass/Vol] 80 ug/dL Normal 41-186 [facility] Comment on above: Performed By: #### WSR, B12, SERFOL, IRO N, FERR, SERIMM, HREMOP, SERMPA, SEPG, MMA #### [place] [phone] TIBC 247 ug/dL Normal 232-386 [facility] Comment on above: Performed By: #### WSR, B12, SERFOL, IRO N, FERR, SERIMM, HREMOP, SERMPA, SEPG, MMA #### [place] [address] [place] [address] Transferrin Saturatn 32 % Normal 15-57 [facility] Comment on above: Performed By: #### WSR, B12, SERFOL, IRO N, FERR, SERIMM, HREMOP, SERMPA, SEPG, MMA #### [place] [address] [place] [address] LDon 04-02-2019 LD 131 U/L Low 135-225 [facility] Comment on above: Performed By: #### WSR, B12, SERFOL, IRO N, FERR, SERIMM, HREMOP, SERMPA, SEPG, MMA #### [place] [address] [place] [address] Methylmalonic Acidon 019 Methylmalonic Acid 232 nmol/L Normal 79-376 [facility] Comment on above: Result Comment: This test was developed and its performance characteristics determined by [facility] ([facility]). It has not been cleared or approved by the FDA. [facility] is regulated under CLIA as qualified to perform high complexity testing. This test is used for clinical purposes. It should not be regarded as investigational or for research. Performed By: #### W SR, B12, SERFOL, IRON, FERR, SERIMM, HREMOP, SERMPA, SEPG, MMA ####[address] [phone] Monclnl Protein, Seron 04-02 K/L Ratio, Serum 1.88 High 0.26-1.65 [facility] Comment on above: Performed By: #### WSR, B12, SERFOL, IRO N, FERR, SERIMM, HREMOP, SERMPA, SEPG, MMA ####[address] [phone] Rembert, Free, Serum 47.1 mg/L High 3.30-19.40 [facility] Comment on above: Result Comment: Test performed by an imm unoturbidimetric assay on Optilite instrument from [facility]. Immunoglobulin free light chain assay results should be interpreted in conjunction with other tests and in correlation with clinical picture. Performed By: #### W SR, B12, SERFOL, IRON, FERR, SERIMM, HREMOP, SERMPA, SEPG, MMA ####[place] [address] [address] [place] [phone] Lambda, Free, Serum 25.0 mg/L Normal 5.7-26.3 [facility] Comment on above: Result Comment: Test performed by an imm unoturbidimetric assay on Optilite instrument from [employer]. Immunoglobulin free light chain assay results should be interpreted in conjunction with other tests and in correlation with clinical picture. Performed By: #### W SR, B12, SERFOL, IRON, FERR, SERIMM, HREMOP, SERMPA, SEPG, MMA ####[place] [address] [address]ich[address] [place] [phone] MPA Serum IgA 336 mg/dL Normal 78-391 [facility] Comment on above: Performed By: #### WSR, B12, SERFOL, IRO N, FERR, SERIMM, HREMOP, SERMPA, SEPG, MMA ####[address]ich[address] [place] [phone] MPA Serum IgG 950 mg/dL Normal 717-1411 [facility] Comment on above: Performed By: #### WSR, B12, SERFOL, IRO N, FERR, SERIMM, HREMOP, SERMPA, SEPG, MMA ####[place] [address] [address] [phone] MPA Serum IgM 136 mg/dL Normal 53-334 [facility] Comment on above: Performed By: #### WSR, B12, SERFOL, IRO N, FERR, SERIMM, HREMOP, SERMPA, SEPG, MMA ####[facility] [place], [place] [phone] Protein [Mass/Vol] No M protein is identified. Normal No M protein is identified . [facility] Comment on above: Performed By: #### WSR, B12, SERFOL, IRO N, FERR, SERIMM, HREMOP, SERMPA, SEPG, MMA ####[facility] [place], [place] [phone] Staff Review Reviewed by Chadd Ackerman MD ([id number]) Normal [facility] Comment on above: Performed By: #### WSR, B12, SERFOL, IRO N, FERR, SERIMM, HREMOP, SERMPA, SEPG, MMA ####[place] [address] [place], [place] [phone] PROGRESSon 04-02-2019 PROGRESS HNO ID: [id number] Author: Francis Hebert Service: ? Author Type: Physician Type: Progress Notes Filed: 04/03/2019 1:15 PM Note Text: PATIENT NAME: Lisa Lugo REFERRING PHYSICIAN: Theron Mendoza MD ([facility]) [facility] [place] [address] PRIMARY CARE PHYSICIAN: Theron Mendoza MD CHIEF [...] PANEL - CBC + DIFF (FOR REMOTE [facility] USE) - IRON + TIBC - FERRITIN [...] initial referral in March [address] mendoaz's notes. He denies any signs of recurrent [...] questions satisfactorily.. Francois Hebert D.O. Medical Oncologist [place], [place] Normal [facility] Protein Electrophor.on 04-02 Albumin [Mass/Vol] 3.79 g/dL Normal 3.37-4.23 [facility] Comment on above: Performed By: #### WSR, B12, SERFOL, IRO N, FERR, SERIMM, HREMOP, SERMPA, SEPG, MMA ####[facility] [place], [place] [phone] Alpha 1 Globulin 0.31 gm/dL Normal 0.18-0.31 [facility] Comment on above: Performed By: #### WSR, B12, SERFOL, IRO N, FERR, SERIMM, HREMOP, SERMPA, SEPG, MMA ####[place] [address] [address]leveland[address] [place] [phone] Alpha 2 Globulin 0.96 gm/dL Normal 0.52-0.97 [facility] Comment on above: Performed By: #### WSR, B12, SERFOL, IRO N, FERR, SERIMM, HREMOP, SERMPA, SEPG, MMA ####[place] [address] [address] [place] [phone] Beta Globulin 1.17 gm/dL Normal 0.84-1.36 [facility] Comment on above: Performed By: #### WSR, B12, SERFOL, IRO N, FERR, SERIMM, HREMOP, SERMPA, SEPG, MMA ####[address] AveCRichard Ville [phone] Gamma Globulin 0.97 gm/dL Normal 0.70-1.44 [facility] Comment on above: Performed By: #### WSR, B12, SERFOL, IRO N, FERR, SERIMM, HREMOP, SERMPA, SEPG, MMA ####[address] AveCLaura [place]ille [phone] Interpretation SEE COMMENT Normal [facility] Comment on above: Result Comment: No definitive M protein is identified on protein electrophoresis. Performed By: #### W SR, B12, SERFOL, IRON, FERR, SERIMM, HREMOP, SERMPA, SEPG, MMA ####[place] [address] [address] AveCLinda [place] [phone] M Guy Concentratn 0.00 gm/dL Normal 0.00 [facility] Comment on above: Performed By: #### WSR, B12, SERFOL, IRO N, FERR, SERIMM, HREMOP, SERMPA, SEPG, MMA ####[address]CJess[address] [place] [phone] Protein [Mass/Vol] 7.2 g/dL Normal 6.0-8.4 [facility] Comment on above: Performed By: #### WSR, B12, SERFOL, IRO N, FERR, SERIMM, HREMOP, SERMPA, SEPG, MMA ####[facility] [place], [place] [phone] Protein [Mass/Vol] N/A Normal [facility] Comment on above: Performed By: #### WSR, B12, SERFOL, IRO N, FERR, SERIMM, HREMOP, SERMPA, SEPG, MMA ####[facility] [place], [place] [phone] SPE Staff Review Reviewed by Chadd Ackerman MD ([id number]) Normal [facility] Comment on above: Performed By: #### WSR, B12, SERFOL, IRO N, FERR, SERIMM, HREMOP, SERMPA, SEPG, MMA ####[place] [address] [place], [place] [phone] Remote CBCDIF (for [facility] use only)on 04-02-2019 Abs Baso <0.03 Normal 0.00-0.10 [facility] Abs Mariposa 0.48 k/uL Normal 0.00-0.86 [facility] Abs Neut 4.30 k/uL Normal 1.45-7.50 [facility] Basophils/100 WBC (Bld) 0.2 % Normal [facility] Eosinophils (Bld) [#/Vol] 0.04 10*3/uL Normal 0.00-0.45 [facility] Eosinophils/100 WBC (Bld) 0.7 % Normal [facility] Erythrocyte distribution width (RBC) [Ratio] 13.9 % Normal 11.5-15.0 [facility] Hematocrit (Bld) [Volume fraction] 39.6 % Normal 39.0-51.0 [facility] Hemoglobin (Bld) [Mass/Vol] 12.6 g/dL Low 13.0-17.0 [facility] Lymphocytes (Bld) [#/Vol] 0.84 10*3/uL Low 1.00-4.00 [facility] Lymphocytes/100 WBC (Bld) 14.8 % Normal [facility] MCH (RBC) [Entitic mass] 27.4 pG Normal 26.0-34.0 [facility] MCHC (RBC) [Mass/Vol] 31.8 g/dL Normal 30.5-36.0 [facility] MCV (RBC) [Entitic vol] 86.1 fL Normal 80.0-100.0 [facility] Monocytes/100 WBC (Bld) 8.5 % Normal [facility] Neutrophils/100 WBC (Bld) 75.8 % Normal [facility] Platelet mean volume (Bld) [Entitic vol] 9.7 fL Normal 9.0-12.7 [facility] Platelets (Bld) [#/Vol] 243 10*3/uL Normal 150-400 [facility] RBC (Bld) [#/Vol] 4.60 10*6/uL Normal 4.20-6.00 [facility] WBC (Bld) [#/Vol] 5.67 10*3/uL Normal 3.70-11.00 [facility] Sed Rate Westergrenon 2018 Sed Rate Westergren 41 mm/hr High 0-15 [facility] Comment on above: Performed By: #### WSR, B12, SERFOL, IRO N, FERR, SERIMM, HREMOP, SERMPA, SEPG, MMA #### [facility] [employer] [address] [place] [address] Vitamin B12on 04-02-2019 Cobalamin (Vitamin B12) [Mass/Vol] 595 pg/mL Normal 232-1245 [facility] Comment on above: Performed By: #### WSR, B12, SERFOL, IRO N, FERR, SERIMM, HREMOP, SERMPA, SEPG, MMA #### [facility] [employer] [address] [place] [address] Cardiovascular Lab Reporton 04-26-2017 Cardiovascular Lab Report [facility] Patient Name: Lisa Lugo [facility] MR #: [id number] Physician: Jenny Parsons M.D.Medicine Service Date: 04/25/2017Division of Birthdate: 2Cardiology Room #: 3CD [id number] CardiovascularJamie [place] [address] [place] [phone] Fax Cardiovascular Laboratory ReportINDICATION: Mr. Lisa Lugo is a 66-year-old man, known to havecoronary artery disease status [facility] Recently, he presented with transient ST-segment elevation in thesetting of ongoing chest pain. He underwent cardiac catheterization anddrug-eluting stenting of the distal right coronary artery de rachel stenosisas well as drug-eluting stenting of the proximal right coronary arteryin-stent restenosis. At that time, he was found to have brvv-qxelnsr-otlsf restenosis in the mid LAD. He is [...] angiography was performedfollowed by upsizing to a 6-Maldivian x 11 cm sheath. Heparin wasadministered intravenously and therapeutic ACT confirmed during theprocedure. A 6-Maldivian XB 3.5 guiding catheter was advanced and [...] the Prowater wire.Angiography was performed. [place] [employer] [place] 2.5 x 15 mm noncompliantballoon was then [...] Follow up in Cardiology Clinic.Electronically Signed by:Jenny Foster M.D. 05/04/2017 03:22 A Jenny Foster M.D.Date Dict: 04/25/2017/09:47 A/Jenny Foster M.D.Date Trans: 04/26/2017 02:28 A/Kehinde_JN:[id number]: Theron Mendoza D.O. [address] [place] [phone] Normal [facility] POC GLUCOSE LABon 04-26-2017 Glucose mass conc 99 mg/dL Normal 70-100 [facility] Comment on above: Performed By: #### [id number] ####[facility] [place] [address], [facility] CBC COMPLETE BLOOD COUNTon 1 06-26-2016 Erythrocyte distribution width Auto Ratio (RBC) 14.3 % Normal 11.5-16.9 [facility] Comment on above: Order Comment: Yes: Add to Previous draw if able Performed By: #### 5 0608 ####[facility] [place] [address], [facility] Erythrocytes (RBC) 4.16 mill/mm3 Low 4.30-5.90 [facility] Comment on above: Order Comment: Yes: Add to Previous draw if able Performed By: #### 5 0608 ####[facility] [place] [address], [facility] Hematocrit (HCT) 34.8 % Low 39.0-55.0 [facility] Comment on above: Order Comment: Yes: Add to Previous draw if able Performed By: #### 5 0608 ####[facility] [place] [address], [facility] Hemoglobin mass conc (Bld) 11.8 g/dL Low 13.9-16.3 [facility] Comment on above: Order Comment: Yes: Add to Previous draw if able Performed By: #### 5 0608 ####[facility] [place] [address], [facility] MCH 28.2 pg Normal 24.0-32.0 [facility] Comment on above: Order Comment: Yes: Add to Previous draw if able Performed By: #### 5 0608 ####[facility] MCHC mass conc (RBC) 33.8 g/dL Normal 32.0-36.0 [facility] Comment on above: Order Comment: Yes: Add to Previous draw if able Performed By: #### 5 0608 ####[facility] [place] [address], [facility] MCV 83.6 fL Normal 80.0-100.0 [facility] Comment on above: Order Comment: Yes: Add to Previous draw if able Performed By: #### 5 0608 ####[facility] PLAT CNT 198 Thou/mm3 Normal 100-400 [facility] Comment on above: Order Comment: Yes: Add to Previous draw if able Performed By: #### 5 0608 ####[facility] WBC (Leukocytes) 3.9 Thou/mm3 Low 4.0-10.0 [facility] Comment on above: Order Comment: Yes: Add to Previous draw if able Performed By: #### 5 0608 ####[facility] POC GLUCOSE LABon 04-25-2017 Glucose mass conc 232 mg/dL High 70-100 [facility] Comment on above: Performed By: #### [id number] ####[facility] [place] [address], [facility] Glucose mass conc 281 mg/dL High 70-100 [facility] Comment on above: Performed By: #### 976[address] ####[facility] [place] [address], [facility] Discharge Summaryon 04-20-20 Discharge Summary MR#: [id number] [facility] Pt. Name: Lisa Lugo Admitted: 04/15/2017 [...] history, requiring stentingin the past, presented to [facility] initially with complaints ofrecurrent chest pain at rest. Initial EKG showed minor ST-segment elevationin the inferior leads, which resolved after administration of IV heparinand nitroglycerin. [facility] and intervention. Heunderwent left heart catheterization with successful balloon dilatation andstenting of 2 lesions. The patient recovered well postprocedure with nofurther recurrence of chest pain. Right femoral access site healed well.DISCHARGE CONDITION: Stable.DISCHARGE DISPOSITION: Home.DISCHARGE MEDICATIONS: Aspirin 81 mg daily, atenolol 25 mg daily, Iwzmjwtr175 mg daily, Clopidogrel 75 mg daily, Lantus [...] personal documentation from me. Date Dict: 04/19/2017/06:17 P/ANIVAL Pinzonate Trans: 04/20/2017 07:36 A/[id number]: Theron Mendoza D.O. [address] [place] [phone] Tino Gunderson M.D. [address] [facility] [address] Normal [facility] BASIC METABOLIC PANELon 12- Calcium 9.0 mg/dL Normal 8.6-10.3 [facility] Comment on above: Order Comment: No: Do not add to previou s draw Performed By: #### 1 0070, [id number] ####[facility] [facility] [place] [address], [facility] Chloride 104 mmol/L Normal 98-107 [facility] Comment on above: Order Comment: No: Do not add to previou s draw Performed By: #### 1 69, 72784 ####[facility] [place] [address], [facility] CO2 24 mmol/L Normal 21-31 [facility] Comment on above: Order Comment: No: Do not add to previou s draw Performed By: #### 1 69, 22470 ####[facility] [place] [address], [facility] Creatinine 0.94 mg/dL Normal 0.70-1.30 [facility] Comment on above: Order Comment: No: Do not add to previou s draw Performed By: #### 1 69, 78972 ####[facility] [place] [address], [facility] eGFR (black) mL/min/{1.73_m2} Normal >60 [facility] Comment on above: Order Comment: No: Do not add to previou s draw Performed By: #### 1 69, 59377 ####[facility] eGFR (non-black) mL/min/{1.73_m2} Normal >60 [facility] Comment on above: Order Comment: No: Do not add to previou s draw Performed By: #### 1 69, 67683 ####[facility] Glucose mass conc 182 mg/dL High 70-100 [facility] Comment on above: Order Comment: No: Do not add to previou s draw Performed By: #### 1 69, 04251 ####[facility] Potassium molar conc 3.9 mmol/L Normal 3.5-5.1 [facility] Comment on above: Order Comment: No: Do not add to previou s draw Performed By: #### 1 69, 77264 ####[facility] Sodium 138 mmol/L Normal 136-145 [facility] Comment on above: Order Comment: No: Do not add to previou s draw Performed By: #### 1 69, 29062 ####[facility] [place] [address], [facility] Urea nitrogen 18 mg/dL Normal 7-25 [facility] Comment on above: Order Comment: No: Do not add to previou s draw Performed By: #### 1 69, [address] ####[facility] CBC COMPLETE BLOOD COUNTon 06-17-2016 Erythrocyte distribution width Auto Ratio (RBC) 14.7 % Normal 11.5-16.9 [facility] Comment on above: Order Comment: No: Do not add to previou s draw Performed By: #### 5 0608 ####[facility] Erythrocytes (RBC) 4.37 mill/mm3 Normal 4.30-5.90 [facility] Comment on above: Order Comment: No: Do not add to previou s draw Performed By: #### 5 [id number] ####[facility] Hematocrit (HCT) 36.5 % Low 39.0-55.0 [facility] Comment on above: Order Comment: No: Do not add to previou s draw Performed By: #### 5 [id number] ####[facility] Hemoglobin mass conc (Bld) 12.3 g/dL Low 13.9-16.3 [facility] Comment on above: Order Comment: No: Do not add to previou s draw Performed By: #### 5 [id number] ####[facility] MCH 28.0 pg Normal 24.0-32.0 [facility] Comment on above: Order Comment: No: Do not add to previou s draw Performed By: #### 5 [id number] ####[facility] MCHC mass conc (RBC) 33.5 g/dL Normal 32.0-36.0 [facility] Comment on above: Order Comment: No: Do not add to previou s draw Performed By: #### 5 [id number] ####[facility] MCV 83.5 fL Normal 80.0-100.0 [facility] Comment on above: Order Comment: No: Do not add to previou s draw Performed By: #### 5 [id number] ####[place] [id number] [address] PLAT CNT 167 Thou/mm3 Normal 100-400 [facility] Comment on above: Order Comment: No: Do not add to previou s draw Performed By: #### 5 [id number] ####[address] WBC (Leukocytes) 4.7 Thou/mm3 Normal 4.0-10.0 [facility] Comment on above: Order Comment: No: Do not add to previou s draw Performed By: #### 5 [id number] ####[address] Cardiovascular Lab Reporton 04-16-2017 Cardiovascular Lab Report [facility] Patient Name: Lisa Lugo [facility] MR #: [id number] Physician: Jenny Parsons M.D.Medicine Service Date: 04/15/2017Division of Birthdate: 2Cardiology Room #: 3AB [id number] CardiovascularServices[place] [address]Phone Fax Cardiovascular Laboratory ReportINDICATION: Lisa Lugo is a 66-year-old man, known to have coronaryartery disease, status post multiple stenting procedures in the past, [facility] with recurrent chest pain at rest. Heinitially had minor ST elevations in the inferior leads that resolved afteradministration of intravenous heparin and nitroglycerin. Because ofrecurrent chest pain, he was transferred emergently to our pharmacy laboratory technician fordiagnostic angiography and intervention.PROCEDURE:1. Bilateral selective coronary [...] EMS services. He was placed on the pharmacy laboratory technician table.Both groin areas were prepped and draped in usual fashion. Usingmicropuncture technique, access in the right common femoral artery wasobtained and the inner cannula was advanced. Limited femoral angiographywas performed followed by upsizing to a 6-Maldivian x 11 cm sheath. Bilateralselective coronary angiography was then performed using 6-Maldivian JL4 andJR4 diagnostic catheters.Heparin was administered intravenously and therapeutic ACT confirmed duringthe procedure. A 6-Maldivian JR4 guiding catheter was advanced and used toengage the right coronary ostium. A Prowater wire was advanced into thedistal RCA. Balloon dilatation in the distal RCA was performed usingEmerge 2.0 x 12 mm balloon and inflated at 12 atmospheres. Angiographyrevealed suboptimal results. This was treated using a PROMUS Premier 2.5 x16 mm drug-eluting stent, deployed at 11 atmospheres and post dilated usingNC Quantum Secaucus 2.5 x 8 mm noncompliant balloon inflated [...] in-stent restenosis was performed using NC Quantum Secaucus 3.0 x8 mm noncompliant balloon inflated at 14 atmospheres followed by additionaldilatation using NC Quantum Secaucus 3.0 x 12 mm noncompliant balloon inflatedat [...] 14atmospheres and post dilated using NC Quantum Secaucus 3.25 x 20 mmnoncompliant balloon inflated at 20 atmospheres throughout the length ofthe stent. Final angiography after administration of intracoronarynitroglycerin showed excellent result with reduction of the stenosis to 0%.No evidence of dissection or perforation. The guiding catheter wasremoved. The procedure was concluded. The right femoral arteriotomy wasmanaged with a 6-Maldivian Perclose device with good hemostasis. The patientwas [...] restenosis at a later date.Electronically Signed by:Jenny Foster M.D. 04/21/2017 01:07 P Jenny Foster M.D.Date Dict: 04/15/2017/06:14 P/Jenny Fostre M.D.Date Trans: 04/16/2017 07:04 A/[id number]: Theron Mendoza D.O. [address] [place] [id number] Tino Gunderson M.D. [address] [facility] [address] Normal [facility] MAGNESIUM BLOODon 04-16-2017 Magnesium 1.9 mg/dL Normal 1.9-2.7 [facility] Comment on above: Order Comment: No: Do not add to previou s draw Performed By: #### 1 0070, [id number] ####[facility] POC GLUCOSE LABon 04-16-2017 Glucose mass conc 173 mg/dL High 70-100 [facility] Comment on above: Performed By: #### [id number] ####[facility] Glucose mass conc 228 mg/dL High 70-100 [facility] Comment on above: Performed By: #### [id number] ####[facility] POC GLUCOSE LABon 04-15-2017 Glucose mass conc 214 mg/dL High 70-100 [facility] Comment on above: Performed By: #### [id number] ####[facility] Vital Signs Date Time Vital Sign Value Performing Clinician Facility 12-18-2023 13:53-0400 Blood Pressure Location Chadd BARBOUR [facility] 12-18-2023 13:53-0400 Diastolic blood pressure 74 mm[Hg] Chadd BARBOUR [facility] 12-18-2023 13:53-0400 Heart rate 70 /min Chadd BARBOUR [facility] 12-18-2023 13:53-0400 Respiratory rate 16 /min Chadd GUERRALeti [facility] 12-18-2023 13:53-0400 Systolic blood pressure 126 mm[Hg] Chadd GUERRALeti [facility] 11-05-2023 13:43-0400 Body height 177.8 cm [facility] 11-05-2023 13:43-0400 Body mass index (BMI) [Ratio] 25.7 kg/m2 [facility] 11-05-2023 13:43-0400 Body weight 81.24 kg [facility] 11-05-2023 13:43-0400 Diastolic blood pressure 71 mm[Hg] [facility] 11-05-2023 13:43-0400 Heart rate 71 /min [facility] 11-05-2023 13:43-0400 Respiratory rate 12 /min [facility] 11-05-2023 13:43-0400 Systolic blood pressure 121 mm[Hg] [facility] 10-01-2023 12:35-0400 Blood Pressure Location DOMINGA SAKINA [facility] 10-01-2023 12:35-0400 Diastolic blood pressure 78 mm[Hg] DOMINGA SAKINA [facility] 10-01-2023 12:35-0400 Heart rate 72 /min DOMINGA SAKINA [facility] 10-01-2023 12:35-0400 Respiratory rate 16 /min DOMINGA SAKINA [facility] 10-01-2023 12:35-0400 Systolic blood pressure 137 mm[Hg] DOMINGA SAKINA [facility] 04-02-2023 09:30-0500 Body height 177.8 cm Theron Ball Other [facility] Other 04-02-2023 09:30-0500 Body mass index (BMI) [Ratio] 25.97 kg/m2 Theron Ball Other [facility] Other 04-02-2023 09:30-0500 Body weight 82.1 kg Theron Ball Other [facility] Other 04-02-2023 09:30-0500 Diastolic blood pressure 85 mm[Hg] Theron Ball Other [facility] Other 04-02-2023 09:30-0500 Respiratory rate 12 /min Theron Ball Other [facility] Other 04-02-2023 09:30-0500 Systolic blood pressure 135 mm[Hg] Theron Ball Other [facility] Other 11-01-2022 10:00-0400 Body height 177.8 cm Theron Ball Other [facility] Other 11-01-2022 10:00-0400 Body mass index (BMI) [Ratio] 25.77 kg/m2 Theron Ball Other [facility] Other 11-01-2022 10:00-0400 Body weight 81.47 kg Theron Ball Other [facility] Other 11-01-2022 10:00-0400 Diastolic blood pressure 71 mm[Hg] Theron Ball Other [facility] Other 11-01-2022 10:00-0400 Respiratory rate 12 /min Theron Ball Other [facility] Other 11-01-2022 10:00-0400 Systolic blood pressure 124 mm[Hg] Theron Ball Other [facility] Other 10-03-2022 13:45-0400 Body height 177.8 cm Theron Ball Other [facility] Other 10-03-2022 13:45-0400 Body mass index (BMI) [Ratio] 26.23 kg/m2 Theron Ball Other [facility] Other 10-03-2022 13:45-0400 Body weight 82.92 kg Theron Ball Other [facility] Other 10-03-2022 13:45-0400 Diastolic blood pressure 76 mm[Hg] Theron Ball Other [facility] Other 10-03-2022 13:45-0400 Respiratory rate 12 /min Theron Ball Other [facility] Other 10-03-2022 13:45-0400 Systolic blood pressure 160 mm[Hg] Theron Ball Other [facility] Other 11-20-2021 12:31-0400 Blood Pressure Location Tom ARGUETA [facility] 11-20-2021 12:31-0400 Diastolic blood pressure 80 mm[Hg] Tom ARGUETA [facility] 11-20-2021 12:31-0400 Heart rate 74 /min Tom ARGUETA [facility] 11-20-2021 12:31-0400 Respiratory rate 16 /min Tom [facility] 11-20-2021 12:31-0400 Systolic blood pressure 133 mm[Hg] Tom ARGUETA [facility] Encounters Encounter Date Encounter Type Care Provider Facility Start: 12-18-2023 End: 12-18-2023 ambulatory Chadd BARBOUR Facility: Ann Start: 12-18-2023 End: 12-18-2023 Patient encounter procedure Chadd BARBOUR [facility] Start: 12-16-2023 End: 12-16-2023 ambulatory Natali Weir MD Facility: [facility] Start: 12-02-2023 End: 12-02-2023 ambulatory Natali Weir MD Facility: [facility] Start: 11-18-2023 End: 11-18-2023 ambulatory Natali Weir MD Facility: [facility] Start: 11-05-2023 End: 11-05-2023 ambulatory [facility] Work Phone: Start: 11-05-2023 End: 11-05-2023 Patient encounter procedure [facility] Physician [facility] Work Phone: Start: 11-05-2023 Non-patient / Non-visit [facility] Physician [facility] Work Phone: Start: 10-01-2023 End: 10-01-2023 ambulatory DOMINGA PRESLEY Facility: Ann Start: 10-01-2023 End: 10-01-2023 Patient encounter procedure DOMINGA PRESLEY [facility] Start: 09-17-2023 Non-patient / Non-visit [facility] Work Phone: Start: 04-03-2023 End: 04-03-2023 ambulatory Theron Mendoza Other [facility] Other Start: 04-03-2023 Telephone encounter Theron Mendoza [facility] Start: 04-02-2023 End: 04-02-2023 ambulatory Theron Mendoza Other [facility] Other Start: 04-02-2023 Office outpatient vi sit 25 minutes Theron Mendoza [facility] Start: 04-01-2023 End: 04-01-2023 ambulatory Theron Mendoza Other [facility] Other Start: 04-01-2023 Telephone encounter Theron Mendoza [facility] Start: 01-07-2023 End: 01-07-2023 ambulatory Theron Mendoza Other [facility] Other Start: 01-07-2023 Telephone encounter Theron Mendoza [facility] Start: 11-01-2022 End: 11-01-2022 ambulatory Theron Mendoza Other [facility] Other Start: 11-01-2022 Patient encounter procedure Theron Mendoza [facility] Start: 10-03-2022 End: 10-03-2022 ambulatory Theron Mendoza Other [facility] Other Start: 10-03-2022 Office outpatient vi sit 15 minutes Theron Mendoza [facility] Start: 10-03-2022 Telephone encounter Theron Mendoza [facility] Start: 04-30-[address] THERON MENDOZA Facili ty:H1 Start: 03-29-2022 End: 03-30-[address] THERON MENDOZA Facility:[facility] Start: 11-25-2021 End: 11-26-[address] THERON MENDOZA Facility:[facility] Start: 11-24-2021 End: 07-30-[address] THERON MENDOZA Facility:[facility] Start: 11-22-2021 Adult health examination Theron Mendoza Other [facility] Other Start: 11-20-2021 End: 11-20-2021 Patient encounter procedure Tom ARGUETA [facility] Start: 09-14-2021 End: 09-15-[address] THERON MENDOZA Facility: Start: 09-10-2017 End: 09-11-2017 Ambulatory DEFAULT PHYSICIAN Facility:[facility] Start: 04-25-2017 End: 04-26-2017 Ambulatory PROVIDER UNKNOWN Facility:[facility] Start: 04-15-2017 End: 04-16-2017 Evaluation and management of inpatient THERON MENDOZA Facility:[facility] Procedures Date Procedure Procedure Detail Performing Clinician Start: 04-08-2018 Cystoscopy Tom STUART Start: 04-15-2017 DILATION OF 2 COR AR T WITH 2 DRUG-ELUT, PERC APPROACH JENNY V ABDON Start: 10-14-2015 General examination of patient Theron [...] of knee Tom ARGUETA Cardiac catheterization Andrew magaly BARBOUR Depression screening Rasheed Mendoza Other Operation on heart Tom MARTINEZ Placement of stent i n cardiac conduit Tom ARGUETA Placement of stent i n coronary artery Chadd ANGLE Plan of Treatment Date Care Activity Detail Author Start: 10-02-2024 ambulatory Ambulatory Facility:[facility] XR Lumbar spine Views [facility] XR Pelvis 1 or 2 Views [facility] Immunizations Immunization Date Immunization Notes Care Provider Kaden rueda 04-03-2022 influenza virus vaccine, split virus (incl. purified surface antigen) Theron Mendoza Other [facility] [employer] Other 04-03-2022 influenza virus vaccine, unspecified formulation [facility] 04-03-2022 Prevnar 20 Theron Mendoza Other [facility] 03-28-2021 influenza virus vaccine, split virus (incl. purified surface antigen) Theron Mendoza Other [facility] [employer] Other 03-28-2021 influenza virus vaccine, unspecified formulation DOMINGA PRESLEY [facility] 04-03-2018 diphtheria, tetanus toxoids and acellular pertussis vaccine, unspecified formulation Theron Mendoza Other [facility] pneumococcal Conjuga te, unspecified formulation; Translations: [Need for prophylactic vaccination against Streptococcus pneumoniae (pneumococcus)] Theron Mendoza Other [place] [employer] Other Payers Date Payer Category Payer Private Health Insurance 2016 Unknown 1959 Medicare [id number] 1959 Private Health Insurance [id number] 1959 Self-pay [id number] 1950 Unknown [id number] 2.16.84 [id number] 1950 Unknown [id number] 2.16.84 [id number] 1950 Unknown [id number] 2.16.84 [id number] 1950 Unknown [id number] 2.16.84 [id number] 1951 Unknown [id number] 2.16.84 [id number] 1950 Unknown [id number] 2.16.8 [id number] 1950 Unknown [id number] 2.16.8 [id number] 1951 Unknown [id number] 2.16.8 [id number] 1951 Unknown [id number] 2.16. [id number] 1950 Unknown [id number] 2.16. [id number] 1950 Unknown [id number] 2.16. [id number] Medicare [id number] Social History Date Type Detail Facility Start: 04-10-2021 End: 12-18-2023 Tobacco smoking status Ex-smoker (finding) [facility] Sex Assigned At Male [facility] Tobacco smoking status Never [facility] Start: 11-05-2023 Tobacco smoking stat us NEIS Never smoked tobacco (finding) [facility] Start: 1950 Sex Assigned At Male F [facility] Medical Equipment Procedure Code Equipment Code Equipment Origin al Text Equipment Identifier Dates BD Pen Needle Sh ort U/F 31G X 8 MM Start: 01-07-2023 Functional Status Date Assessment Result Facility 12-18-2023 Functional Status N/A [facility] 10-01-2023 Functional Status N/A [facility] 11-20-2021 Functional Status N/A [facility] Clinical Notes 11-20-2021 to 12-18-2023 Note Date [...] Daily pioglitazone 1 (more content not included)... [facility] Comment on above: Result Comment: Elec tronically [...] urethra. Follow these instructions at home: Take twuu-lbd-gdigonm and prescription medicines only as told by [...] provider. Document Revised: 11/01/2021 Document Reviewed: 11/01/2021 [employer] Patient Education 2022 [employer]. Follow Up Care 09/17/2022 11:39:15 With:DOMINGA PRESLEY PA-C, URL Address: [address] [place] [address] When: Unknown [facility] 04-02-2023 Evaluation note Encounter Date Diagnosis Assessment [...] risk for cerebrovascular and cardiovascular disease. Mar, senior living (current) use of insulin (ICD-10 - Z79.4) [...] dyspnea, CP or lightheadedness _update office tomorrow [facility] Other 12-04-2023 Evaluation note* Encounter Date Diagnosis Assessment Notes Treatment Notes Treatment Clinical Notes Mar, Primary hypertension (ICD-10 - I10) Mar, Type 2 diabetes mellitus with hyperglycemia (ICD-10 - E11.65) Mar, Mixed hyperlipidemia (ICD-10 - E78.2) Mar, ASHD (arteriosclerotic heart disease) (ICD-10 - I25.10) Mar, High risk medication use (ICD-10 - Z79.899) [facility] Other 09-11-2023 Evaluation note* Encounter Date Diagnosis Assessment Notes Treatment Notes Treatment Clinical Notes Dec, Type 2 diabetes mellitus with hyperglycemia (ICD-10 - E11.65) [facility] Other 07-06-2023 Evaluation note* Encounter Date Diagnosis [...] risk for cerebrovascular and cardiovascular disease. 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 They are also encouraged to continue exercise to achieve/maintain a normal BMI. Oct, Screening PSA (prostate specific antigen) (ICD-10 - Z12.5) Completed w/ , normal [facility] Other 06-07-2023 Evaluation note* Encounter Date Diagnosis [...] to achieve/maintain a normal BMI. Avoid NSAIDs [facility] Other 07-25-2022 Hospital Discharge instructions Patient Education [...] Follow these instructions at home: Medicines Take yjke-tjy-dqczjmz and prescription medicines only as told by [...] or the blood stops without treatment. Take zngr-jae-cdczosc and prescription medicines only as told by your health care provider. Drink enough fluid to keep your urine clear or pale yellow. This information is not intended to replace advice given to you by your health care provider. Make sure you discuss any questions you have with your health care provider. Document Released: 04/15/2006 Document Revised: 09/09/2019 Document Reviewed: 05/18/2017 [employer] Patient Education 2020 [employer] Follow Up Care 09/21/2021 10:23:43 With:LIZABETH NUÑEZ, Tom Cohen, URL Address: [facility] [address] , [place] [phone] When: Unknown [facility] evaluation + Plan note Future Appointments Appointment Date:11/28/2021 08:45:00 AM Scheduled Provider: Location:[facility] Appointment Type:Urology CALL PAT FT Appointment Date:12/12/2021 10:30:00 AM Scheduled Provider: Location:[facility] Appointment Type:Urology FT Appointment Date:04/13/2022 10:45:00 AM Scheduled Provider:Tom ARGUETA MD Location:[facility] Appointment Type:URO Office Visit [facility] evaluation + Plan note Future Appointments Appointment Date:10/02/2024 10:15:00 AM Scheduled Provider:Tom ARGUETA MD Location:[facility] Appointment Type:URO Office Visit Diagnostic Tests Pending * PSA Total 10/01/23 [facility] evaluation + Plan note Future Appointments Appointment Date:10/02/2024 10:15:00 AM Scheduled Provider:Tom ARGUETA MD Location:[facility] Appointment Type:URO Office Visit [facility] Evaluation [facility] [employer] Other Evaluation note* Diagnosis Onset Date Resolution Status Anemia acute ASHD (arteriosclerotic heart disease) acute GERD (gastroesophageal reflux disease) acute Hypercholesterolemia acute Hypertension acute Type 2 diabetes mellitus with hyperglycemia acute Medicare annual wellness visit, subsequent noneactive Screening for colon cancer n [facility] Work Phone: [employer]ish[employer] general Narrative - Reported* Type Description Date Medical History ASHD Medical History HTN Medical History Hyperlipidemia Medical History T2DM Medical History GERD Surgical History ANGIOPLASTY Surgical History LHC PCI/stent RCA and LAD 2006 Surgical History LHC PCI/stent RCA 2016 Surgical History LHC PCI/stent OM and LCx 2016 Surgical History C PCI/stent RCA x 2 2017 Surgical History C PCI/stent LAD 2017 Surgical History TURP, TRUS/bx 2009 Surgical History Arthroscopy right knee 2005, 20 14 Surgical History Arthroscopy left knee 2004 Hospitalization History see surgical history [facility] Other Hospital course Narrative No data available for this section [facility] Dis[facility] instructions No data available for this section [facility] Surgery [place] note No data available for this section [facility] [employer] reason for referral (narrative)* Reason Referral for interna l derangement right knee Diagnosis 1 Internal derangement of right knee (M23.91) Referral Organization [facility] bhargav Referring Provider [...] Notes MRI right knee to be included [facility] Other Summary Purpose Family History No Family [...] section and content) DATE CREATED AUTHOR 10/16/2017 [facility] DATE CREATED AUTHOR AUTHOR'S ORGANIZ ATION 04/04/2019 [facility] DATE CREATED AUTHOR AUTHOR'S ORGANIZ ATION 04/30/2022 [facility] DATE CREATED AUTHOR AUTHOR'S ORGANIZ ATION 12/20/2023 [facility] DATE CREATED AUTHOR AUTHOR'S ORGANOBI ATION 12/27/2023 [facility] Care Team (unrecognized sect ion and content) Team Status: Active Member Role Status Dates Theron Mendoza , DO Primary Care Provider Active Team Status: Active Member Role Status Dates Theron Mendoza , DO Primary Care Provider Active Start: September [...] (unrecogniz ed section and content) Wants in [facility] [place] InformationNo InformationBlood Work?Check UpUpdate Goals [...] BE BASED ON THE PRIMARY CLINICAL RECORDS. [employer] provides no warranty or guarantee of the accuracy or completeness of information in this document.
[2024-01-01 07:30] VITALS: BP 144/85; PULSE 75; TEMP 36.2; O2SAT 99; BMI 24.3
[2024-01-01 07:35] LABS: Glucometer 142 mg/dL (74-106)
[2024-01-01] MEDS: LACTATED RINGER'S SOLUTION 1,000 ML 50 ML IV (07:47)
[2024-01-01 09:02] VITALS: BP 118/68; PULSE 65; TEMP 36.8; O2SAT 96
[2024-01-01 09:17] VITALS: BP 141/81; PULSE 64; O2SAT 100
[2024-01-01 09:31] VITALS: BP 158/93; PULSE 61; O2SAT 99
== END 2024-01-01 09:32 | disposition home or self-care (01) ==
PROVIDERS: PCP Internal Medicine; Visit Provider Surgery
PROC: (CPT 45378; principal; 2024-01-01 08:30)
DX: R19.5 Other fecal abnormalities (principal); I25.10 Atherosclerotic heart disease of native coronary artery without angina pectoris; E11.9 Type 2 diabetes mellitus without complications; I10 Essential (primary) hypertension; E78.5 Hyperlipidemia, unspecified; K21.9 Gastro-esophageal reflux disease without esophagitis; N40.0 Benign prostatic hyperplasia without lower urinary tract symptoms; Z79.02 Long term (current) use of antithrombotics/antiplatelets; Z79.82 Long term (current) use of aspirin; Z87.891 Personal history of nicotine dependence; Z95.5 Presence of coronary angioplasty implant and graft; Z79.4 Long term (current) use of insulin
CPT/HCPCS: 45378; 36415; 82948; J2704

== ENCOUNTER 2024-01-06 07:42 | Day surgery (SDC) | payer MEDICARE, OTHER, SELFPAY ==
[2024-01-06 08:18] VITALS: BP 119/71; PULSE 68; TEMP 36.8; O2SAT 97
[2024-01-06 08:33] LABS: Glucometer 249 mg/dL (74-106)
[2024-01-06 08:51] VITALS: BP 151/72; BP 155/72; PULSE 65; PULSE 68; O2SAT 97; O2SAT 98
--- NOTE | 2024-01-06 08:55 | W.PM.PROCNOT ---
Date of procedure: 01/06/24 Pre-op diagnosis: Pain due to lumbar stenosis with neurogenic claudication Post-op diagnosis: same as pre-op Procedure: Procedure: Bilateral L5-S1 transforaminal epidural steroid injection Medications: Bupivacaine 0.25% 2cc, lidocaine 2% 1cc, kenalog 80mg The patient was seen and examined in the preoperative holding area.? Informed consent was obtained and placed on the chart.? Patient was brought to the medical procedure unit and placed in the prone position where a timeout was completed verifying the correct patient, procedure site, position, and planned special equipment using sterile aseptic technique.? Under direct fluoroscopic visualization a 25-gauge Quincke tipped spinal needle was advanced at level left L5-S1 to the designated neural foramen where contrast dye was injected to show adequate spread.? There was no evidence of vascular or adverse uptake.? Epidural spread was appreciated.? The above-mentioned injectate was then placed in a 1.5 mL aliquot preceded by negative aspiration.? The needle was removed. The same procedure, at the same level, was completed on the opposite side. ? Patient was taken to the postprocedural recovery area and monitored for an appropriate length of time before found suitable for discharge in the accompaniment of a responsible adult. Anesthesia: Local Surgeon: Natali Weir Pathology: none sent Condition: stable Disposition: no change
[2024-01-06] MEDS: 0.9 % SODIUM CHLORIDE 10 ML SYRINGE - SALINE FLUSH INJ (08:56)
[2024-01-06] MEDS: LIDOCAINE HCL 2% 400 MG/20 ML MDV INJ (08:56)
[2024-01-06] MEDS: IOHEXOL 240 MG/ML - 10 ML VIAL 12 MG INJ (08:56)
[2024-01-06] MEDS: BUPIVACAINE HCL 0.25% PF 25 MG/10 ML VIAL INJ (08:56)
[2024-01-06] MEDS: TRIAMCINOLONE ACETONIDE 40 MG/ML VIAL 80 MG INJ (08:57)
== END 2024-01-06 09:00 | disposition home or self-care (01) ==
LOC: SURGOUT 07:42
PROVIDERS: PCP Internal Medicine; Visit Provider Anesthesiology
DX: M48.062 Spinal stenosis, lumbar region with neurogenic claudication (principal); Z79.4 Long term (current) use of insulin; Z79.84 Long term (current) use of oral hypoglycemic drugs
CPT/HCPCS: 36415; 64483; 82948; J0665; J3301; Q9966

== ENCOUNTER 2024-03-18 08:58 | Outpatient (OUT) | payer MEDICARE, OTHER, SELFPAY ==
--- OUTSIDE RECORDS SUMMARY | 2024-03-18 09:05 | XMS_ITS | CCD ---
Author Organization [facility] Care Team Providers Care Sample Maker Hand Name Role Phone THERON MENDOZA Unavailable Unavailable TINO GUNDERSON Unavailable Unavailable RACHELL, MO GREGORIO Unavailable Unavailable RACHELL, MO AM Unavailable Unavailable MO Unavailable Unavailable UNKNOWN, PROVIDER Unavailable Unavailable UNKNOWN, PROVIDER Unavailable Unavailable UNKNOWN, PROVIDER Unavailable Unavailable MATT, THERON Unavailable Unavailable MATT, THERON Unavailable Unavailable PHYSICIAN, DEFAULT Unavailable Unavailable PHYSICIAN, DEFAULT Unavailable Unavailable MATT, THERON Unavailable Unavailable MATT, THERON Primary Care Physician [phone] MATT, DR CRUMP Primary Care Unavailable LIZABETH, [...] DR CRUMP Admitting Unavailable Matt, Theron Unavailable DOMINGA PRESLEY Attending Unavailable NILL, Chadd Cohen Attending Unavailable NILL, Chadd Cohen Attending Unavailable NILL, Chadd Cohen Attending Unavailable ARGUETA, Tom Cohen Attending Unavailable Giedmackenzie NUÑEZ, Natali Luo Attending Unavailable Gijojo NUÑEZ, Natali Luo Attending Unavailable Gijojo NUÑEZ, Andrius Valerio Attending Unavailable Gijojo NUÑEZ, Andbishnu Luo Attending Unavailable Allergies Allergy Classification Reported Allergen(s) Allergy Type Date of Onset Reaction(s) Facility (1 source) 89539,00; Translations: [09433,00] Propensity to adverse reactions (disorder) 9 [facility] Repository (12 sources) metFORMIN; Translations: [metFORMIN] Drug Allergy diarrhea, Unknown [facility] Repository (3 sources) patient allergy list reviewed by nurse or physicia Propensity to adverse reactions 8 Comment:Done [employer] Other (1 source) No Known Medication Allergies; Translations: [No Known Medication Allergies] Propensity to adverse reactions (disorder) [facility] Repository Medications Current Medications Medication Drug [...] procedure, # 2 cap(s), Refills(s) 0, Pharmacy: [facility]/pharmacy #[id number], 177, cm, 11/20/21 12:47:00 EDT, [...] disease (20 sources) Atherosclerotic heart disease of [place] coronary artery with unstable angina pectoris; Translations: [Atherosclerotic heart disease of [place] coronary artery without angina pectoris] Onset: 08-25-2013 [...] Onset: 09-18-2013 Chronic Other aftercare (6 sources) correction (current) use of insulin; Translations: [correction (current) use of antithrombotics/antip latelets] Onset: 04-15-2017 Episodic Other aftercare (8 sources) Long-term current use of insulin; Translations: [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 Normal [facility] Cholesterol in LDL Calc [Mas s/Vol]on 11-05-2023 Cholesterol in LDL [Mass/Vol] 42.0 mg/dL [facility] Comment on above: <100 mg/dl [id number] mg/dl NEAR OR ABOVE [id number] mg/dl BORDERLINE [id number] mg/dl HIGH>190 mg/dl VERY HIGH Cholesterol in VLDL Calc [Ma ss/Vol]on 11-05-2023 Cholesterol in VLDL [Mass/Vol] 35.6 mg/dL [facility] Estimated glomerular filtrat ion rate (GFR) non- Americanon 11-05-2023 GFR/1.73 sq M.predicted among non-blacks MDRD (S/P/Bld) [Vol rate/Area] mL/min/{1.73_m2} >=60 [facility] Globulin Calc (S) [Mass/Vol] on 11-05-2023 Globulin (S) [Mass/Vol] 3.3 g/dL [facility] Glucose mean value [Mass/vol ume] in Blood Estimated from glycated hemoglobinon 11-05-2023 Average glucose Estimated from glycated hemoglobin (Bld) [Mass/Vol] 143 mg/dL [facility] Laboratory - Chemistry and C hemistry - challengeon 11-05-2023 Albumin [Mass/Vol] 4.0 g/dL 3.4-5.0 [facility] ALP [Catalytic activity/Vol] 74 U/L 46-116 [facility] ALT [Catalytic activity/Vol] 48 U/L 16-63 [facility] AST [Catalytic activity/Vol] 34 U/L 15-37 [facility] Bilirubin [Mass/Vol] 0.9 mg/dL 0.2-1.0 [facility] Calcium [Mass/Vol] 8.6 mg/dL 8.5-10.1 [facility] Chloride [Moles/Vol] 103 mmol/L 98-107 [facility] Cholesterol [Mass/Vol] 119 mg/dL <=200 [facility] Cholesterol in HDL [Mass/Vol] 42 mg/dL 40-60 [facility] Comment on above: > or =60 mg/dl - LOW CARDIOVASCULAR RISK <40 mg/dl - HIGH CARDIOVASCULAR RISK CO2 [Moles/Vol] 28.3 mmol/L 21.0-32.0 [facility] Creatinine [Mass/Vol] 1.10 mg/dL 0.70-1.30 [facility] GFR/1.73 sq M.predicted MDRD (S/P/Bld) [Vol rate/Area] mL/min/{1.73_m2} >=60 [facility] Glucose [Mass/Vol] 139 mg/dL High 74-106 [facility] Potassium [Moles/Vol] 4.1 mmol/L 3.5-5.1 [facility] Protein [Mass/Vol] 7.3 g/dL 6.4-8.2 [facility] Sodium [Moles/Vol] 141 mmol/L 136-145 [facility] Triglyceride [Mass/Vol] 178 mg/dL High <=150 [facility] Urea nitrogen [Mass/Vol] 21.0 mg/dL High 7.0-18.0 [facility] Urea nitrogen/Creatin ine [Mass ratio] 19.1 mg/mg [facility] Laboratory - Hematology and Cell countson 11-05-2023 HbA1c (Bld) [Mass fraction] 6.6 % High 4.5-6.2 [facility] Comment on above: ADA RECOMMENDED LIMIT 4.0 - 6.0ADA THERA PEUTIC TARGET < 7.0ACTION SUGGESTED> 7.0 Microalbumin [Mass/volume] i n Urineon 11-05-2023 Albumin DL <= 20 mg/L (U) [Mass/Vol] 3.4 mg/dL <=30.0 [facility] Serum or plasma albumin/glob ulin mass ratioon 11-05-2023 Albumin/Globulin [Mass ratio] 1.2 {ratio} [facility] Serum or plasma anion gap de terminationon 11-05-2023 Anion gap [Moles/Vol] 13.8 mmol/L [facility] Serum or plasma total choles terol/high density lipoprotein (HDL) cholesterol mass aquiles 11-05-2023 Cholesterol.tota l/Cholesterol in HDL [Mass ratio] 2.8 {ratio} [facility] Comment on above: 3.3 - 4.4 LOW RISK4.4 - 7.1 AVERAGE RISK 7.1 - 11.0 MODERATE RISK>11.0 HIGH RISK Screenson 10-02-2023 Screens [id number] Normal [facility] Screens [id number] Normal [facility] Ambulatory Visit Summaryon 0 10-01-2023 Ambulatory Visit Summary LISA LUGO :1950 Visit Date:10/01/2023 Ambulatory Visit Instructions Your Diagnosis BPH with urinary obstruction History of gross hematuria Glucosuria Your Care Team Attending Physician - SAKINA RANDALL, DOMINGA Multani Primary Care Physician - THERON MENDOZA DO [...] NUÑEZ, Tom Cohen Where: [facility] Patient Educationon 10-01-19 Patient Education [...] Follow these instructions at home: ? Take nysb-xht-bolducp and prescription medicines only as told by [...] the medicine (more content not included)... Normal [facility] Urology Office/Clinic Noteon 10-01-2023 Urology Office/Clinic [...] Contact Information SAKINA RANDALL, DOMINGA Multani, URL [address] [place] [address] Additional Instructions: 1 yr PSA Patient Education [...] virus vaccine (more content not included)... Normal [facility] Comment on above: Result Comment: Electronically Signed By : DOMINGA PRESLEY PA-C\.br\Date and Time Signed: 10/01/23 13:08 EDT\.br\Electronically Co-Signed By: Trish Marcus\.br\Date and Time Co-Signed: 10/01/23 13:03 EDT Lab Reportson 09-18-2023 Lab Reports [id number]#[id number] [facility] RAD - Ultrasound Reporton RAD - Ultrasound Report [id number]#[id number] [facility] No Panel Informationon 09-16 Free Prostate Specific Antigen 0.78 ng/mL N/A [facility] Comment on above: [facility] ECLIA methodology. Prostate Specific Antigen Total 1.9 ng/mL 0.0-4.0 [facility] Comment on above: [facility] ECLIA methodology.According [...] PSA/Total PSA [Mass fraction] 41.1 % . [facility] Comment on above: The table below [...] any other population of men.Performed at: - [facility] [id number] Director: Guanakito Cota PhD, Phone: [phone] Reminderson 08-22-2023 Reminders - From: Sade Kilgore To: EU - Recalls Lizabeth; Sent: 05/02/2022 10:13:25 EST Show up: 10/27/2022 10:13:00 EDT Subject: renal US and fu Due Date/Time: 11/19/2022 10:13:00 EDT Reminder/Recall Patient is due in November 2022 for 1 year fu with renal US From: Tonja Valadez MA (EU - Recalls Lizabeth) To: EU - Recalls Lizabeth; Sent: 11/13/2022 13:34:49 EDT Show up: 08/12/2023 13:34:00 EDT Subject: RE: renal US and fu Due Date/Time: 09/13/2023 13:34:00 EDT Pt has 1yr f/u w/PSA 09/20/23. Will schedule MINESH prior to that appt. LM on VM informing pt that [facility] will be reaching out to get MINESH scheduled. Appt 09/20/23 to review results. Order & demo's faxed to the [facility] CS. MINESH scheduled 09/17/23 @ [facility] Normal [facility] GLYCOHEMOGLOBIN A1Con 2021 ADA RECOMMENDATION SEE BELOW Normal [facility] Comment on above: Result Comment: ADA RECOMMENDED LIMIT 4. 0 - 6.0 ADA THERAPEUTIC TARGET < 7.0 ACTION SUGGESTED > 7.0 Performed By: #### A 1C #### [facility] [address], [place] [address] Dr. Yara Chavez Glucose [Mass/Vol] 166 mg/dL Normal [facility] Comment on above: Performed By: #### A1C #### [facility] [address] [place], [place] [address] Dr. Yara Chavez HbA1c (Bld) [Mass fraction] 7.4 % Critically high 4.5-6.2 [facility] Comment on above: Performed By: #### A1C #### [facility] [address] [place], [place] [address] ABD/PELV W CONon [...] PARAS SOMMERS Date: 2021-11-26 02:01 Normal [facility] CBC AUTO DIFFon 11-24-2021 BASO # 0.0 103/ul Normal 0.0-0.1 [facility] Comment on above: Performed By: #### CBC #### [facility] [address] [place] [address] Dr. Yara Chavez Basophils/100 WBC (Bld) 0.7 % Normal 0.2-2.0 [facility] Comment on above: Performed By: #### CBC #### [facility] [address] [place] [address] [address] Yara Chavez EO # 0.0 103/ul Normal 0.0-0.7 [facility] Comment on above: Performed By: #### CBC #### [facility] [address] [address] [address] Yara Chavez Eosinophils/100 WBC (Bld) 1.0 % Normal 0.9-7.0 [facility] Comment on above: Performed By: #### CBC #### [facility] [address] [address] [address] Yara Chavez Erythrocyte distribution width (RBC) [Ratio] 14.7 % Normal 11.0-15.0 [facility] Comment on above: Performed By: #### CBC #### [facility] [address] [address] [address] Yara Chavez Hematocrit (Bld) [Volume fraction] 38.7 % Critically low 42.0-54.0 [facility] Comment on above: Performed By: #### CBC #### [facility] [address] [place] [address] Dr. Yara Chavez Hemoglobin (Bld) [Mass/Vol] 12.3 g/dL Critically low 14.0-18.0 [facility] Comment on above: Performed By: #### CBC #### [facility] [address] [place] [address] Dr. Yara Chavez IG # 0.01 10e3/ul Normal 0.00-0.03 [facility] Comment on above: Performed By: #### CBC #### [facility] [address] [place] [address] Dr. Yara Chavez IG % 0.3 % Normal 0.0-0.5 [facility] Comment on above: Performed By: #### CBC #### [facility] [address] [place] [address] Dr. Yara Chavez LYMPH # 1.1 103/ul Critically low 1.2-3.8 [facility] Comment on above: Performed By: #### CBC #### [facility] [address] [place] [address] Dr. Yara Chavez Lymphocytes/100 WBC (Bld) 36.1 % Normal 20.5-60.0 [facility] Comment on above: Performed By: #### CBC #### [facility] [address] [place] [address] Dr. Yara Chavez MANUAL DIFF REQ NO Normal [facility] Comment on above: Performed By: #### CBC #### [facility] [address] [place] [address] Dr. aYra Chavez MCH (RBC) [Entitic mass] 28.0 pg Normal 25.9-34.0 [facility] Comment on above: Performed By: #### CBC #### [facility] [address] [place] [address] Dr. Yara Chavez MCHC (RBC) [Mass/Vol] 31.8 g/dL Normal 29.9-35.2 [facility] Comment on above: Performed By: #### CBC #### [facility] [address] [place] [address] Dr. Yara Chavez MCV (RBC) [Entitic vol] 88.2 fL Normal 80.0-94.0 [facility] Comment on above: Performed By: #### CBC #### [facility] [address] [place] [address] Dr. Yara Chavez MONO # 0.3 103/ul Normal 0.3-0.8 [facility] Comment on above: Performed By: #### CBC #### [facility] [address] [place] [address] Dr. Yara Chavez Monocytes/100 WBC (Bld) 9.5 % Normal 1.7-12.0 [facility] Comment on above: Performed By: #### CBC #### [facility] [address] [place] [address] Dr. Yara Chavez NEUT # 1.5 103/ul Normal 1.4-6.5 [facility] Comment on above: Performed By: #### CBC #### [facility] [address] [place] [address] Dr. Yara Chavez Neutrophils/100 WBC (Bld) 52.4 % Normal 43.0-75.0 [facility] Comment on above: Performed By: #### CBC #### [facility] [address] [place] [address] Dr. Yara Chavez Platelet mean volume (Bld) [Entitic vol] 10.1 fL Normal 9.5-13.5 [facility] Comment on above: Performed By: #### CBC #### [facility] [address] [place] [address] Dr. Yara Chavez PLT 195 103/ul Normal 150-450 [facility] Comment on above: Performed By: #### CBC #### [facility] [address] [place] [address] Dr. Yara Chavez RBC 4.39 106/ul Critically low 4.70-6.10 [facility] Comment on above: Performed By: #### CBC #### [facility] [address] [place] [address] Dr. Yara Chavez WBC 2.9 103/ul Critically low 4.0-11.0 [facility] Comment on above: Performed By: #### CBC #### [facility] [address] [address] [address] Yara Chavez LIPID PROFILEon 11-24-2021 CHOL-HDL RATIO NORM SEE BELOW Normal [facility] Comment on above: Result Comment: 3.3 - 4.4 LOW RISK 4.4 - 7.1 AVERAGE RISK 7.1 - 11.0 MODERATE RISK >11.0 HIGH RISK Performed By: #### A LT, BMP, LIPID #### [facility] [address] [place], [place] [address] Dr. Yara Chavez Cholesterol [Mass/Vol] 124 mg/dL Normal <=200 [facility] Comment on above: Performed By: #### ALT, BMP, LIPID #### [facility] [address] [address] [address] Yara Chavez Cholesterol in HDL [Mass/Vol] 41 mg/dL Normal 40-60 [facility] Comment on above: Performed By: #### ALT, BMP, LIPID #### [facility] [address] [address] [address] Yara Chavez Cholesterol in LDL [Mass/Vol] 56.8 mg/dL Normal [facility] Comment on above: Performed By: #### ALT, BMP, LIPID #### [facility] [address] [place], [place] [address] Dr. Yara Chavez Cholesterol.tota l/Cholesterol in HDL [Mass ratio] 3.0 {ratio} Normal [facility] Comment on above: Performed By: #### ALT, BMP, LIPID #### [facility] [address] [place], [place] [address] Dr. Yara Chavez HDL NORMAL > or = 60 mg/dl - LO W CARDIOVASCULAR RISK <40 mg/dl - HIGH CARDIOVASCULAR RISK Normal [facility] Comment on above: Performed By: #### ALT, BMP, LIPID #### [facility] [address] [place], [place] [address] Dr. Yara Chavez LDL CALC NORMAL SEE BELOW Normal [facility] Comment on above: Result Comment: <100 mg/dl OPTIMAL 100 - 129 mg/dl NEAR OR ABOVE OPTIMAL 130 - 159 mg/dl BORDERLINE HIGH 160 - 189 mg/dl HIGH >190 mg/dl VERY HIGH Performed By: #### A LT, BMP, LIPID #### [facility] [address] [address] [address] Yara Chavez Triglyceride [Mass/Vol] 131 mg/dL Normal <=150 [facility] Comment on above: Performed By: #### ALT, BMP, LIPID #### [facility] [address] [address] [address] Yara Chavez VLDL CALC 26.2 mg/dL Normal [facility] Comment on above: Performed By: #### ALT, BMP, LIPID #### [facility] [address] [place] [address] Dr. Yara Chavez MICROALBUMIN, RAND URon 07- mALB 1.4 mg/L Normal <=30.0 [facility] Comment on above: Performed By: #### MALBR #### [facility] [address] [place] [address] Dr. Yara Chavez PROF CHEM 8 (BAS METB)on Anion gap [Moles/Vol] 10.1 mmol/L Normal [facility] Comment on above: Performed By: #### ALT, BMP, LIPID #### [facility] [address] [place] [address] Dr. Yara Chavez Calcium [Mass/Vol] 9.0 mg/dL Normal 8.5-10.1 [facility] Comment on above: Performed By: #### ALT, BMP, LIPID #### [facility] [address] [place] [address] Dr. Yara Chavez Chloride [Moles/Vol] 105 mmol/L Normal 98-107 [facility] Comment on above: Performed By: #### ALT, BMP, LIPID #### [facility] [address] [place] [address] Dr. Yara Chavez CO2 [Moles/Vol] 31.3 mmol/L Normal 21.0-32.0 [facility] Comment on above: Performed By: #### ALT, BMP, LIPID #### [facility] [address] [address] [address] Yara Chavez Creatinine [Mass/Vol] 1.24 mg/dL Normal 0.70-1.30 [facility] Comment on above: Performed By: #### ALT, BMP, LIPID #### [facility] [address] [address] [address] Yara Chavez EGFR-AF UGANDAN >60 Normal >=60 [facility] Comment on above: Performed By: #### ALT, BMP, LIPID #### [facility] [address] [address] [address] Yara Chavez EGFR-NON AF UGANDAN 58 mL/min/1.73m2 Critically low >=60 [facility] Comment on above: Performed By: #### ALT, BMP, LIPID #### [facility] [address] [address] [address] Yara Chavez Glucose [Mass/Vol] 102 mg/dL Normal 74-106 [facility] Comment on above: Performed By: #### ALT, BMP, LIPID #### [facility] [address] [address] [address] Yara Chavez Potassium [Moles/Vol] 4.4 mmol/L Normal 3.5-5.1 [facility] Comment on above: Performed By: #### ALT, BMP, LIPID #### [facility] [address] [address] [address] Yara Chavez Sodium [Moles/Vol] 142 mmol/L Normal 136-145 [facility] Comment on above: Performed By: #### ALT, BMP, LIPID #### [facility] [address] [address] [address] Yara Chavez Urea nitrogen [Mass/Vol] 22.0 mg/dL Critically high 7.0-18.0 [facility] Comment on above: Performed By: #### ALT, BMP, LIPID #### [facility] [address] [address] [address] Yara Chavez Urea nitrogen/Creatin ine [Mass ratio] 17.7 mg/mg Normal [facility] Comment on above: Performed By: #### ALT, BMP, LIPID #### [facility] [address] [address] [address] Yara Chavez SGPTon 11-24-2021 ALT [Catalytic activity/Vol] 48 U/L Normal 16-63 [facility] Comment on above: Performed By: #### ALT, BMP, LIPID #### [facility] [address] [place] [address] Dr. Yara Chavez GLYCOHEMOGLOBIN A1Con 2021 ADA RECOMMENDATION SEE BELOW Normal [facility] Comment on above: Result Comment: ADA RECOMMENDED LIMIT 4. 0 - 6.0 ADA THERAPEUTIC TARGET < 7.0 ACTION SUGGESTED > 7.0 Performed By: #### A 1C #### [facility] [address] [place] [address] Dr. Yara Chavez Glucose [Mass/Vol] 169 mg/dL Normal [facility] Comment on above: Performed By: #### A1C #### [facility] [address] [place] [address] Dr. Yara Chavez HbA1c (Bld) [Mass fraction] 7.5 % Critically high 4.5-6.2 [facility] Comment on above: Performed By: #### A1C #### [facility] [address] [place] [address] Dr. Yara Chavez PROF CHEM 8 (BAS METB)on Anion gap [Moles/Vol] 12.0 mmol/L Normal [facility] Comment on above: Performed By: #### BMP #### [facility] [address] [place] [address] Dr. Yara Chavez Calcium [Mass/Vol] 8.7 mg/dL Normal 8.5-10.1 [facility] Comment on above: Performed By: #### BMP #### [facility] [address] [place] [address] Dr. Yara Chavez Chloride [Moles/Vol] 103 mmol/L Normal 98-107 [facility] Comment on above: Performed By: #### BMP #### [facility] [address] [place] [address] Dr. Yara Chavez CO2 [Moles/Vol] 29.1 mmol/L Normal 21.0-32.0 [facility] Comment on above: Performed By: #### BMP #### [facility] [address] [address] [address] Yara Chavez Creatinine [Mass/Vol] 1.17 mg/dL Normal 0.70-1.30 [facility] Comment on above: Performed By: #### BMP #### [facility] [address] [address] [address] Yara Chavez EGFR-AF UGANDAN >60 Normal >=60 [facility] Comment on above: Performed By: #### BMP #### [facility] [address] [address] [address] Yara Chavez EGFR-NON AF UGANDAN >60 Normal >=60 [facility] Comment on above: Performed By: #### BMP #### [facility] [address] [place] [address] Dr. Yara Chavez Glucose [Mass/Vol] 144 mg/dL Critically high 74-106 [facility] Comment on above: Performed By: #### BMP #### [facility] [address] [place] [address] Dr. Yara Chavez Potassium [Moles/Vol] 4.1 mmol/L Normal 3.5-5.1 [facility] Comment on above: Performed By: #### BMP #### [facility] [address] [place] [address] Dr. Yara Chavez Sodium [Moles/Vol] 140 mmol/L Normal 136-145 [facility] Comment on above: Performed By: #### BMP #### [facility] [address] [place] [address] Dr. Yara Chavez Urea nitrogen [Mass/Vol] 18.0 mg/dL Normal 7.0-18.0 [facility] Comment on above: Performed By: #### BMP #### [facility] [address] [place] [address] Dr. Yara Chavez Urea nitrogen/Creatin ine [Mass ratio] 15.4 mg/mg Normal [facility] Comment on above: Performed By: #### BMP #### [facility] [address] [address] [address] Yara Chavez CNOVSPon 04-02-2019 CNOVSP Visit (SP) Office (H EMASA) KIMBERLEELISA ROMO ([id number]) 1950 M Date Time Provider Department 04/02/19 11:15 AM THAIS HEBERT During your visit today, we recorded the following information about you: Temperature Pulse Respiration Blood pressure 98.1 degrees 72/minute 16/minute 131/69 Weight Height 80.5 kg 1.778 m Thais Hebert DO 04/03/2019 1:15 PM Signed PATIENT NAME: Lisa Lugo REFERRING PHYSICIAN: Theron Mendoza MD ([facility]) [address] [place] [address] PRIMARY CARE PHYSICIAN: Theron Mendoza MD CHIEF [...] PANEL - CBC + DIFF (FOR REMOTE [facility] USE) - IRON + TIBC - FERRITIN BLD - VITAMIN B12 BLOOD - FOLATE SERUM - METHYLMALONIC ACID - HEP REMOTE PANEL BL - SED RATE [facility] Return labs today. f/u 6 mos. [...] questions satisfactorily.. Francois Hebert D.O. Medical Oncologist [facility] [place], [place] Referring Provider: THERON MENDOZA [[id number]] Allergies As of Date: 04/02/2019 (No Known Allergies) Date Reviewed: 04/02/2019 Reviewed by: Dorene Germain - Fully Assessed Reason for Visit: abdnormal lab [Other] Cmt: new patient consultation Primary Visit Diagnosis:Leukopenia, unspecified type [D72.819] Other Visit Diagnosis:Abnormal finding of blood chemistry, unspecified [R79.9] Order(s):PROTEIN ELECTROPHORESIS W/INTERP [SQSEPG] Order #: [id number] FUTURE MONOCLONAL PROTEIN, SERUM (BLOOD) [SQSERMPA] Order #: [id number] FUTURE IMMUNOGLOBULINS SHANIA [SQSERIMM] Order #: [id number] FUTURE LD LACTATE DEHYDRO [SQLD6] Order #: [id number] FUTURE COMP METABOLIC PANEL [SQCMP] Order #: [id number] FUTURE CBC + DIFF (FOR REMOTE [facility] USE) [SQRCBCDF] Order #: [id number] FUTURE IRON + TIBC [SQIRON] Order #: [id number] FUTURE FERRITIN BLD [SQFERR] Order #: [id number] FUTURE VITAMIN B12 BLOOD [SQB12] Order #: [id number] FUTURE FOLATE SERUM [SQSERFOL] Order #: [id number] FUTURE METHYLMALONIC ACID [SQMMA] Order #: [id number] FUTURE HEP REMOTE PANEL BL [SQHREMOP] Order #: [id number] FUTURE SED RATE WESTERGREN [SQWSR] Order #: [id number] FUTURE Disposition: Return labs today. f/u 6 [...] by THAIS HEBERT DO on 04/03/19 Normal [facility] Comp Metabolic Panelon 04-02 Albumin [Mass/Vol] 4.4 g/dL Normal 3.9-4.9 [facility] ALP [Catalytic activity/Vol] 102 U/L Normal 38-113 [facility] ALT [Catalytic activity/Vol] 53 U/L Normal 10-54 [facility] Anion gap [Moles/Vol] 13 mmol/L Normal 9-18 [facility] AST [Catalytic activity/Vol] 31 U/L Normal 14-40 [facility] Bilirubin [Mass/Vol] 0.6 mg/dL Normal 0.2-1.3 [facility] Calcium [Mass/Vol] 9.6 mg/dL Normal 8.5-10.2 [facility] Chloride [Moles/Vol] 98 mmol/L Normal 97-105 [facility] CO2 [Moles/Vol] 24 mmol/L Normal 22-30 [facility] Creatinine [Mass/Vol] 0.94 mg/dL Normal 0.73-1.22 [facility] eGFR- Amer. >60 Normal [facility] GFR/1.73 sq M predicted among non-blacks MDRD (S/P/Bld) [Vol rate/Area] mL/min/{1.73_m2} Normal [facility] Comment on above: Result Comment: eGFR (Estimated [...] GFR. Glucose [Mass/Vol] 257 mg/dL High 74-99 [facility] Comment on above: Result Comment: The Taiwanese [...] 1). Potassium [Moles/Vol] 4.8 mmol/L Normal 3.7-5.1 [facility] Protein [Mass/Vol] 7.4 g/dL Normal 6.3-8.0 [facility] Sodium [Moles/Vol] 135 mmol/L Low 136-144 [facility] Urea nitrogen [Mass/Vol] 19 mg/dL Normal 9-24 [facility] Ferritinon 04-02-2019 Ferritin [Mass/Vol] 279.0 ng/mL Normal 30.3-565.7 [facility] Comment on above: Performed By: #### WSR, B12, SERFOL, IRO N, FERR, SERIMM, HREMOP, SERMPA, SEPG, MMA #### [place] [phone] Folate, Serumon 04-02-2019 Folate [Mass/Vol] ng/mL Normal >4.7 [facility] Comment on above: Result Comment: A result of > 20 ng/mL i s not necessarily indicative of a pathologic or treatable condition: it reflects a limitation of the test methodology. Assay reference range: 4.8 to 24.2 ng/mL. Suitable for detection of folate deficiency. Reference: Folate III (Folate III) [package insert V 2.0 Norwegian]. Augustina Valcon, [place], [place]: February 2015. Performed By: #### W SR, B12, SERFOL, IRON, FERR, SERIMM, HREMOP, SERMPA, SEPG, MMA #### [place] [phone] Hepatitis Remote Panelon HBsAg Negative Normal Negative [facility] Comment on above: Performed By: #### WSR, B12, SERFOL, IRO N, FERR, SERIMM, HREMOP, SERMPA, SEPG, MMA #### [place] [phone] Hep B Core Ab,Total Negative Normal Negative [facility] Comment on above: Performed By: #### WSR, B12, SERFOL, IRO N, FERR, SERIMM, HREMOP, SERMPA, SEPG, MMA #### [place] [phone] Hepatitis C Ab IA Negative Normal Negative [facility] Comment on above: Performed By: #### WSR, B12, SERFOL, IRO N, FERR, SERIMM, HREMOP, SERMPA, SEPG, MMA #### [place] [address] HepB Surface Ab,Qual Negative Normal Negative [facility] Comment on above: Result Comment: NEGATIVE Performed By: #### W SR, B12, SERFOL, IRON, FERR, SERIMM, HREMOP, SERMPA, SEPG, MMA #### [place] [address] Immunoglobulins GAMon 2018 IgA [Mass/Vol] 323 mg/dL Normal 78-391 [facility] Comment on above: Performed By: #### WSR, B12, SERFOL, IRO N, FERR, SERIMM, HREMOP, SERMPA, SEPG, MMA #### [place] [address] IgG [Mass/Vol] 981 mg/dL Normal 717-1411 [facility] Comment on above: Performed By: #### WSR, B12, SERFOL, IRO N, FERR, SERIMM, HREMOP, SERMPA, SEPG, MMA #### [place] [address] IgM [Mass/Vol] 133 mg/dL Normal 53-334 [facility] Comment on above: Performed By: #### WSR, B12, SERFOL, IRO N, FERR, SERIMM, HREMOP, SERMPA, SEPG, MMA #### [place] [address] Iron and TIBCon 04-02-2019 Iron [Mass/Vol] 80 ug/dL Normal 41-186 [facility] Comment on above: Performed By: #### WSR, B12, SERFOL, IRO N, FERR, SERIMM, HREMOP, SERMPA, SEPG, MMA #### [place] [address] TIBC 247 ug/dL Normal 232-386 [facility] Comment on above: Performed By: #### WSR, B12, SERFOL, IRO N, FERR, SERIMM, HREMOP, SERMPA, SEPG, MMA #### [place] [phone] [place] [address] Transferrin Saturatn 32 % Normal 15-57 [facility] Comment on above: Performed By: #### WSR, B12, SERFOL, IRO N, FERR, SERIMM, HREMOP, SERMPA, SEPG, MMA #### [place] [address] LDon 04-02-2019 LD 131 U/L Low 135-225 [facility] Comment on above: Performed By: #### WSR, B12, SERFOL, IRO N, FERR, SERIMM, HREMOP, SERMPA, SEPG, MMA #### [place] [address] Methylmalonic Acidon 019 Methylmalonic Acid 232 nmol/L Normal 79-376 [facility] Comment on above: Result Comment: This test was developed and its performance characteristics determined by [facility] [place] [facility] It has not been cleared or approved by the FDA. [facility] is regulated under CLIA as qualified to perform high complexity testing. This test is used for clinical purposes. It should not be regarded as investigational or for research. Performed By: #### W SR, B12, SERFOL, IRON, FERR, SERIMM, HREMOP, SERMPA, SEPG, MMA ####[place] [phone] Monclnl Protein, Seron 04-02 K/L Ratio, Serum 1.88 High 0.26-1.65 [facility] [place] [facility] Comment on above: Performed By: #### WSR, B12, SERFOL, IRO N, FERR, SERIMM, HREMOP, SERMPA, SEPG, MMA ####[facility]ClevelandKaylee [place] [phone] [place], Free, Serum 47.1 mg/L High 3.30-19.40 [facility] Comment on above: Result Comment: Test performed by an imm unoturbidimetric assay on Optilite instrument from [facility]. Immunoglobulin free light chain assay results should be interpreted in conjunction with other tests and in correlation with clinical picture. Performed By: #### W SR, B12, SERFOL, IRON, FERR, SERIMM, HREMOP, SERMPA, SEPG, MMA ####[place] [id number] AveClevelChad [place]ille [phone] Lambda, Free, Serum 25.0 mg/L Normal 5.7-26.3 [facility] Comment on above: Result Comment: Test performed by an imm unoturbidimetric assay on Optilite instrument from [facility]. Immunoglobulin free light chain assay results should be interpreted in conjunction with other tests and in correlation with clinical picture. Performed By: #### W SR, B12, SERFOL, IRON, FERR, SERIMM, HREMOP, SERMPA, SEPG, MMA ####[place] [id number] AveClevelChad [place]ille [phone] MPA Serum IgA 336 mg/dL Normal 78-391 [facility] Comment on above: Performed By: #### WSR, B12, SERFOL, IRO N, FERR, SERIMM, HREMOP, SERMPA, SEPG, MMA ####[facility] AveClevelandKaylee [place] [phone] MPA Serum IgG 950 mg/dL Normal 717-1411 [facility] Comment on above: Performed By: #### WSR, B12, SERFOL, IRO N, FERR, SERIMM, HREMOP, SERMPA, SEPG, MMA ####[facility]ClevelandKaylee [place] [phone] MPA Serum IgM 136 mg/dL Normal 53-334 [facility] Comment on above: Performed By: #### WSR, B12, SERFOL, IRO N, FERR, SERIMM, HREMOP, SERMPA, SEPG, MMA ####[place] [id number] [place], [place] [phone] Protein [Mass/Vol] No M protein is identified. Normal No M protein is identified . [facility] Comment on above: Performed By: #### WSR, B12, SERFOL, IRO N, FERR, SERIMM, HREMOP, SERMPA, SEPG, MMA ####[place] [id number] [place], [place] [phone] Staff Review Reviewed by Chadd Ackerman MD ([id number]) Normal [facility] Comment on above: Performed By: #### WSR, B12, SERFOL, IRO N, FERR, SERIMM, HREMOP, SERMPA, SEPG, MMA ####[place] [address] [place], [place] [phone] PROGRESSon 04-02-2019 PROGRESS HNO ID: [id number] Author: Thais Hebert Service: ? Author Type: Physician Type: Progress Notes Filed: 04/03/2019 1:15 PM Note Text: PATIENT NAME: Lisa Lugo REFERRING PHYSICIAN: Theron Mendoza MD ([facility]) [address] [place] [address] PRIMARY CARE PHYSICIAN: Theron Mendoza MD CHIEF [...] PANEL - CBC + DIFF (FOR REMOTE [facility] USE) - IRON + TIBC - FERRITIN [...] questions satisfactorily.. Francois Hebert D.O. Medical Oncologist [place], [place] Normal [facility] Protein Electrophor.on 04-02 Albumin [Mass/Vol] 3.79 g/dL Normal 3.37-4.23 [facility] Comment on above: Performed By: #### WSR, B12, SERFOL, IRO N, FERR, SERIMM, HREMOP, SERMPA, SEPG, MMA ####[facility] [place], [place] [phone] Alpha 1 Globulin 0.31 gm/dL Normal 0.18-0.31 [facility] [place] [facility] Comment on above: Performed By: #### WSR, B12, SERFOL, IRO N, FERR, SERIMM, HREMOP, SERMPA, SEPG, MMA ####[place] [id number] AveCAaron [place] [phone] Alpha 2 Globulin 0.96 gm/dL Normal 0.52-0.97 [facility] [place] [facility] Comment on above: Performed By: #### WSR, B12, SERFOL, IRO N, FERR, SERIMM, HREMOP, SERMPA, SEPG, MMA ####[place] [address] [address] Ave[address] [place] [address] Beta Globulin 1.17 gm/dL Normal 0.84-1.36 [facility] Comment on above: Performed By: #### WSR, B12, SERFOL, IRO N, FERR, SERIMM, HREMOP, SERMPA, SEPG, MMA ####[place] [address] [address] [place] [phone] Gamma Globulin 0.97 gm/dL Normal 0.70-1.44 [facility] Comment on above: Performed By: #### WSR, B12, SERFOL, IRO N, FERR, SERIMM, HREMOP, SERMPA, SEPG, MMA ####[address] [place]ille [phone] Interpretation SEE COMMENT Normal [facility] Comment on above: Result Comment: No definitive M protein is identified on protein electrophoresis. Performed By: #### W SR, B12, SERFOL, IRON, FERR, SERIMM, HREMOP, SERMPA, SEPG, MMA ####[place] [address] [address] AveCEddie [place] [phone] M Guy Concentratn 0.00 gm/dL Normal 0.00 [facility] Comment on above: Performed By: #### WSR, B12, SERFOL, IRO N, FERR, SERIMM, HREMOP, SERMPA, SEPG, MMA ####[place] [address] [address] AveCHenryetta, [place] [phone] Protein [Mass/Vol] 7.2 g/dL Normal 6.0-8.4 [facility] Comment on above: Performed By: #### WSR, B12, SERFOL, IRO N, FERR, SERIMM, HREMOP, SERMPA, SEPG, MMA ####[place] [address] AveCHenryetta, [place] [phone] Protein [Mass/Vol] N/A Normal [facility] Comment on above: Performed By: #### WSR, B12, SERFOL, IRO N, FERR, SERIMM, HREMOP, SERMPA, SEPG, MMA ####[place] [address] AveCHenryetta, [place] [phone] SPE Staff Review Reviewed by Chadd Ackerman MD ([id number]) Normal [facility] Comment on above: Performed By: #### WSR, B12, SERFOL, IRO N, FERR, SERIMM, HREMOP, SERMPA, SEPG, MMA ####[place] [address] AveCHenryetta, [place] [phone] Remote CBCDIF (for [facility] use o nly)on 04-02-2019 Abs Baso <0.03 Normal 0.00-0.10 [facility] Abs Grand 0.48 k/uL Normal 0.00-0.86 [facility] Abs Neut 4.30 k/uL Normal 1.45-7.50 [facility] Basophils/100 WBC (Bld) 0.2 % Normal [facility] Eosinophils (Bld) [#/Vol] 0.04 10*3/uL Normal 0.00-0.45 [facility] Eosinophils/100 WBC (Bld) 0.7 % Normal [facility] Erythrocyte distribution width (RBC) [Ratio] 13.9 % Normal 11.5-15.0 [facility] Hematocrit (Bld) [Volume fraction] 39.6 % Normal 39.0-51.0 [facility] Hemoglobin (Bld) [Mass/Vol] 12.6 g/dL Low 13.0-17.0 [facility] Lymphocytes (Bld) [#/Vol] 0.84 10*3/uL Low 1.00-4.00 [facility] Lymphocytes/100 WBC (Bld) 14.8 % Normal [facility] MCH (RBC) [Entitic mass] 27.4 pG Normal 26.0-34.0 [facility] MCHC (RBC) [Mass/Vol] 31.8 g/dL Normal 30.5-36.0 [facility] MCV (RBC) [Entitic vol] 86.1 fL Normal 80.0-100.0 [facility] Monocytes/100 WBC (Bld) 8.5 % Normal [facility] Neutrophils/100 WBC (Bld) 75.8 % Normal [facility] Platelet mean volume (Bld) [Entitic vol] 9.7 fL Normal 9.0-12.7 [facility] Platelets (Bld) [#/Vol] 243 10*3/uL Normal 150-400 [facility] RBC (Bld) [#/Vol] 4.60 10*6/uL Normal 4.20-6.00 [facility] WBC (Bld) [#/Vol] 5.67 10*3/uL Normal 3.70-11.00 [facility] Sed Rate Westergrenon 2018 Sed Rate Westergren 41 mm/hr High 0-15 [facility] Comment on above: Performed By: #### WSR, B12, SERFOL, IRO N, FERR, SERIMM, HREMOP, SERMPA, SEPG, MMA #### [facility] [address] [place], [place] [address] Vitamin B12on 04-02-2019 Cobalamin (Vitamin B12) [Mass/Vol] 595 pg/mL Normal 232-1245 [facility] Comment on above: Performed By: #### WSR, B12, SERFOL, IRO N, FERR, SERIMM, HREMOP, SERMPA, SEPG, MMA #### [facility] [address] [place], [place] [address] Cardiovascular Lab Reporton 04-26-[address] [facility] Patient Name: Lisa Lugo [facility] MR #: [id number] Physician: Jenny Parsons M.D.Medicine Service Date: 04/25/2017Division of Birthdate: 2Cardiology Room #: 3CD [id number] [facility] [facility].[place], [place] [address]Hjcfp Fax Cardiovascular Laboratory ReportINDICATION: Mr. Lisa Lugo is a 66-year-old man, known to havecoronary artery disease status post multiple stenting procedures [place] [facility]. Recently, he presented with transient ST-segment elevation in thesetting of ongoing chest pain. He underwent cardiac catheterization anddrug-eluting stenting of the distal right coronary artery de rachel stenosisas well as drug-eluting stenting of the proximal right coronary arteryin-stent restenosis. At that time, he was found to have dsml-vygexht-qzxdz restenosis in the mid LAD. He is [...] angiography was performedfollowed by upsizing to a 6-Egyptian x 11 cm sheath. Heparin wasadministered intravenously and therapeutic ACT confirmed during theprocedure. A 6-Egyptian XB 3.5 guiding catheter was advanced and [...] to the Prowater wire.Angiography was performed. [place] MePlease Belcher 2.5 x 15 mm noncompliantballoon was then [...] 04/25/2017/09:47 A/Jenny Coppola M.D.Date Trans: 04/26/2017 02:28 A/[id number]: Theron Mendoza D.O. [address] [place] [phone] Normal [facility] POC GLUCOSE LABon 04-26-2017 Glucose mass conc 99 mg/dL Normal 70-100 [facility] Comment on above: Performed By: #### [id number] ####[facility] [facility] CBC COMPLETE BLOOD COUNTon 1 06-26-2016 Erythrocyte distribution width Auto Ratio (RBC) 14.3 % Normal 11.5-16.9 [facility] Comment on above: Order Comment: Yes: Add to Previous draw if able Performed By: #### 5 0608 ####[facility] Erythrocytes (RBC) 4.16 mill/mm3 Low 4.30-5.90 [facility] Comment on above: Order Comment: Yes: Add to Previous draw if able Performed By: #### 5 0608 ####[facility] Hematocrit (HCT) 34.8 % Low 39.0-55.0 [facility] Comment on above: Order Comment: Yes: Add to Previous draw if able Performed By: #### 5 0608 ####[facility] Hemoglobin mass conc (Bld) 11.8 g/dL Low 13.9-16.3 [facility] Comment on above: Order Comment: Yes: Add to Previous draw if able Performed By: #### 5 0608 ####[facility] [place] [address], [facility] MCH 28.2 pg Normal 24.0-32.0 [facility] Comment on above: Order Comment: Yes: Add to Previous draw if able Performed By: #### 5 0608 ####[facility] [place] [address], [facility] MCHC mass conc (RBC) 33.8 g/dL Normal 32.0-36.0 [facility] Comment on above: Order Comment: Yes: Add to Previous draw if able Performed By: #### 5 0608 ####[facility] [facility] [place] [address], [facility] MCV 83.6 fL Normal 80.0-100.0 [facility] Comment on above: Order Comment: Yes: Add to Previous draw if able Performed By: #### 5 0608 ####[facility] [place] [address], [facility] PLAT CNT 198 Thou/mm3 Normal 100-400 [facility] Comment on above: Order Comment: Yes: Add to Previous draw if able Performed By: #### 5 0608 ####[facility] [place], [place] [address]E.[place] [address], [facility] WBC (Leukocytes) 3.9 Thou/mm3 Low 4.0-10.0 [facility] Comment on above: Order Comment: Yes: Add to Previous draw if able Performed By: #### 5 0608 ####[facility] [place] [address], [facility] POC GLUCOSE LABon 04-25-2017 Glucose mass conc 232 mg/dL High 70-100 [facility] Comment on above: Performed By: #### [address] ####[facility] [place] [address], [facility] Glucose mass conc 281 mg/dL High 70-100 [facility] Comment on above: Performed By: #### [address] ####[facility] Discharge Summaryon 04-20-20 Discharge Summary MR#: [id number] Admitted: 04/15/2017 Discharged: [...] history, requiring stentingin the past, presented to [facility] initially with complaints ofrecurrent chest pain at rest. Initial EKG showed minor ST-segment elevationin the inferior leads, which resolved after administration of IV heparinand nitroglycerin. [facility] and [facility]. Heunderwent left heart catheterization with successful balloon dilatation andstenting of 2 lesions. The patient recovered well postprocedure with nofurther recurrence of chest pain. Right femoral access site healed well.DISCHARGE CONDITION: Stable.DISCHARGE DISPOSITION: Home.DISCHARGE MEDICATIONS: Aspirin 81 mg daily, atenolol 25 mg daily, Enymtomd845 mg daily, Clopidogrel 75 mg daily, Lantus [...] from me. Date Dict: 04/19/2017/06:17 P/Arely Campos, MDDate Trans: 04/20/2017 07:36 A/[id number]: Theron Mendoza D.O. [address] [place] [phone] Tino Gunderson M.D. [facility]5 [facility] [address] Normal [facility] BASIC METABOLIC PANELon 12- Calcium 9.0 mg/dL Normal 8.6-10.3 [facility] Comment on above: Order Comment: No: Do not add to previou s draw Performed By: #### 1 69, [id number] ####[facility] [place] [address], [facility] Chloride 104 mmol/L Normal 98-107 [facility] Comment on above: Order Comment: No: Do not add to previou s draw Performed By: #### 1 69, [address] ####[facility] [place] [address], [facility] CO2 24 mmol/L Normal 21-31 [facility] Comment on above: Order Comment: No: Do not add to previou s draw Performed By: #### 1 0, 17[address] ####[facility] [place] [address], [facility] Creatinine 0.94 mg/dL Normal 0.70-1.30 [facility] Comment on above: Order Comment: No: Do not add to previou s draw Performed By: #### 1 007, [id number] ####[facility] [place] [address], [facility] eGFR (black) mL/min/{1.73_m2} Normal >60 [facility] Comment on above: Order Comment: No: Do not add to previou s draw Performed By: #### 1 69, 88721 ####[facility] [place] [address], [facility] eGFR (non-black) mL/min/{1.73_m2} Normal >60 [facility] Comment on above: Order Comment: No: Do not add to previou s draw Performed By: #### 1 69, 11159 ####[facility] [place] [address], [facility] Glucose mass conc 182 mg/dL High 70-100 [facility] Comment on above: Order Comment: No: Do not add to previou s draw Performed By: #### 1 69, 22567 ####[facility] [place] [address], [facility] Potassium molar conc 3.9 mmol/L Normal 3.5-5.1 [facility] Comment on above: Order Comment: No: Do not add to previou s draw Performed By: #### 1 69, 54749 ####[facility] [place] [address], [facility] Sodium 138 mmol/L Normal 136-145 [facility] Comment on above: Order Comment: No: Do not add to previou s draw Performed By: #### 1 69, 84205 ####[facility] [place] [address], [facility] Urea nitrogen 18 mg/dL Normal 7-25 [facility] Comment on above: Order Comment: No: Do not add to previou s draw Performed By: #### 1 69, 92878 ####[facility] CBC COMPLETE BLOOD COUNTon 1 06-17-2016 Erythrocyte distribution width Auto Ratio (RBC) 14.7 % Normal 11.5-16.9 [facility] Comment on above: Order Comment: No: Do not add to previou s draw Performed By: #### 5 0608 ####[facility] Erythrocytes (RBC) 4.37 mill/mm3 Normal 4.30-5.90 [facility] Comment on above: Order Comment: No: Do not add to previou s draw Performed By: #### 5 0608 ####[facility] Hematocrit (HCT) 36.5 % Low 39.0-55.0 [facility] Comment on above: Order Comment: No: Do not add to previou s draw Performed By: #### 5 0608 ####[facility] Hemoglobin mass conc (Bld) 12.3 g/dL Low 13.9-16.3 [facility] Comment on above: Order Comment: No: Do not add to previou s draw Performed By: #### 5 0608 ####[facility] MCH 28.0 pg Normal 24.0-32.0 [facility] Comment on above: Order Comment: No: Do not add to previou s draw Performed By: #### 5 0608 ####[facility] MCHC mass conc (RBC) 33.5 g/dL Normal 32.0-36.0 [facility] Comment on above: Order Comment: No: Do not add to previou s draw Performed By: #### 5 0608 ####[facility] MCV 83.5 fL Normal 80.0-100.0 [facility] Comment on above: Order Comment: No: Do not add to previou s draw Performed By: #### 5 0608 ####[address] PLAT CNT 167 Thou/mm3 Normal 100-400 [facility] Comment on above: Order Comment: No: Do not add to previou s draw Performed By: #### 5 0608 ####[address] WBC (Leukocytes) 4.7 Thou/mm3 Normal 4.0-10.0 [facility] Comment on above: Order Comment: No: Do not add to previou s draw Performed By: #### 5 0608 ####[address] Cardiovascular Lab Reporton 04-16-[address] [facility] Patient Name: Lisa Lugo [facility] MR #: [id number] Physician: Jenny Parsons M.D.Medicine Service Date: 04/15/2017Division of Birthdate: 2Cardiology Room #: 3AB [id number] CardiovascularServices[place] [address]Phone Fax Cardiovascular Laboratory ReportINDICATION: Lisa Lugo is a 66-year-old man, known to have coronaryartery disease, status post multiple stenting procedures in the past, [facility] with recurrent chest pain at rest. Heinitially had minor ST elevations in the inferior leads that resolved afteradministration of intravenous heparin and nitroglycerin. Because ofrecurrent chest pain, he was transferred emergently to our general labor fordiagnostic angiography and intervention.PROCEDURE:1. Bilateral selective coronary [...] EMS services. He was placed on the general labor table.Both groin areas were prepped and draped in usual fashion. Usingmicropuncture technique, access in the right common femoral artery wasobtained and the inner cannula was advanced. Limited femoral angiographywas performed followed by upsizing to a 6-Egyptian x 11 cm sheath. Bilateralselective coronary angiography was then performed using 6-Egyptian JL4 andJR4 diagnostic catheters.Heparin was administered intravenously and therapeutic ACT confirmed duringthe procedure. A 6-Egyptian JR4 guiding catheter was advanced and used toengage the right coronary ostium. A Get Me Listedwater wire was advanced into thedistal RCA. Balloon dilatation in the distal RCA was performed usingEmerge 2.0 x 12 mm balloon and inflated at 12 atmospheres. Angiographyrevealed suboptimal results. This was treated using a PROMUS Premier 2.5 x16 mm drug-eluting stent, deployed at 11 atmospheres and post dilated usingNC Quantum Belcher 2.5 x 8 mm noncompliant balloon inflated [...] in-stent restenosis was performed using NC Quantum Belcher 3.0 x8 mm noncompliant balloon inflated at 14 atmospheres followed by additionaldilatation using NC Quantum Belcher 3.0 x 12 mm noncompliant balloon inflatedat [...] 14atmospheres and post dilated using NC Quantum Belcher 3.25 x 20 mmnoncompliant balloon inflated at 20 atmospheres throughout the length ofthe stent. Final angiography after administration of intracoronarynitroglycerin showed excellent result with reduction of the stenosis to 0%.No evidence of dissection or perforation. The guiding catheter wasremoved. The procedure was concluded. The right femoral arteriotomy wasmanaged with a 6-Egyptian Perclose device with good hemostasis. The patientwas [...] in-stent restenosis at a later date.Electronically Signed by:eJnny Coppola M.D. 04/21/2017 01:07 P Jenny Coppola M.D.Date Dict: 04/15/2017/06:14 P/Jneny Coppola M.D.Date Trans: 04/16/2017 07:04 [id number]: Theron Mendoza D.O. [address] [place] [address] A [facility] [id number] Tino Gunderson M.D. [address] [place] [address] Normal [facility] MAGNESIUM BLOODon 04-16-2017 Magnesium 1.9 mg/dL Normal 1.9-2.7 [facility] Comment on above: Order Comment: No: Do not add to previou s draw Performed By: #### 1 0070, 58991 ####[facility] [place] [address], [facility] POC GLUCOSE LABon 04-16-2017 Glucose mass conc 173 mg/dL High 70-100 [facility] Comment on above: Performed By: #### [id number] ####[facility] [facility] [place] [address], [facility] Glucose mass conc 228 mg/dL High 70-100 [facility] Comment on above: Performed By: #### [id number] ####[facility] [facility] [place] [address], [facility] POC GLUCOSE LABon 04-15-2017 Glucose mass conc 214 mg/dL High 70-100 [facility] Comment on above: Performed By: #### [id number] ####[facility] [place] [address], [facility] Vital Signs Date Time Vital Sign Value Performing Clinician Facility 12-18-2023 13:53-0400 Blood Pressure Location Chadd BARBOUR [facility] 12-18-2023 13:53-0400 Diastolic blood pressure 74 mm[Hg] Chadd BARBOUR [facility] 12-18-2023 13:53-0400 Heart rate 70 /min Chadd GUERRAL [facility] 12-18-2023 13:53-0400 Respiratory rate 16 /min Chadd GUERRAL [facility] 12-18-2023 13:53-0400 Systolic blood pressure 126 mm[Hg] Chadd GUERRAL [facility] 11-05-2023 13:43-0400 Body height 177.8 cm [facility] 11-05-2023 13:43-0400 Body mass index (BMI) [Ratio] 25.7 kg/m2 [facility] 11-05-2023 13:43-0400 Body weight 81.24 kg [facility] 11-05-2023 13:43-0400 Diastolic blood pressure 71 mm[Hg] [facility] 11-05-2023 13:43-0400 Heart rate 71 /min [facility] 11-05-2023 13:43-0400 Respiratory rate 12 /min [facility] 11-05-2023 13:43-0400 Systolic blood pressure 121 mm[Hg] [facility] 10-01-2023 12:35-0400 Blood Pressure Location DOMINGA PRESLEY [facility] 10-01-2023 12:35-0400 Diastolic blood pressure 78 mm[Hg] DOMINGA SAKINA [facility] 10-01-2023 12:35-0400 Heart rate 72 /min DOMINGA SAKINA [facility] 10-01-2023 12:35-0400 Respiratory rate 16 /min DOMINGA SAKINA [facility] 10-01-2023 12:35-0400 Systolic blood pressure 137 mm[Hg] DOMINGA PRESLEY [facility] 04-02-2023 09:30-0500 Body height 177.8 cm Theron Ball Other [facility] Other 04-02-2023 09:30-0500 Body mass index (BMI) [Ratio] 25.97 kg/m2 Theron Ball Other [facility] Other 04-02-2023 09:30-0500 Body weight 82.1 kg Theron Ball Other [facility] Other 04-02-2023 09:30-0500 Diastolic blood pressure 85 mm[Hg] Theron Ball Other [facility] Other 04-02-2023 09:30-0500 Respiratory rate 12 /min Theron Ball Other [facility] Other 04-02-2023 09:30-0500 Systolic blood pressure 135 mm[Hg] Theron Ball Other [facility] Other 11-01-2022 10:00-0400 Body height 177.8 cm Theron Ball Other [facility] Other 11-01-2022 10:00-0400 Body mass index (BMI) [Ratio] 25.77 kg/m2 Theron Ball Other [facility] Other 11-01-2022 10:00-0400 Body weight 81.47 kg Theron Ball Other [facility] Other 11-01-2022 10:00-0400 Diastolic blood pressure 71 mm[Hg] Theron Ball Other [facility] Other 11-01-2022 10:00-0400 Respiratory rate 12 /min Theron Ball Other [facility] Other 11-01-2022 10:00-0400 Systolic blood pressure 124 mm[Hg] Theron Ball Other [facility] Other 10-03-2022 13:45-0400 Body height 177.8 cm Theron Ball Other [facility] Other 10-03-2022 13:45-0400 Body mass index (BMI) [Ratio] 26.23 kg/m2 Theron Ball Other [facility] Other 10-03-2022 13:45-0400 Body weight 82.92 kg Theron Ball Other [facility] Other 10-03-2022 13:45-0400 Diastolic blood pressure 76 mm[Hg] Theron Ball Other [facility] Other 10-03-2022 13:45-0400 Respiratory rate 12 /min Theron Ball Other [facility] Other 10-03-2022 13:45-0400 Systolic blood pressure 160 mm[Hg] Theron Ball Other [facility] Other 11-20-2021 12:31-0400 Blood Pressure Location Tom ARGUETA [facility] 11-20-2021 12:31-0400 Diastolic blood pressure 80 mm[Hg] Tom ARGUETA [facility] 11-20-2021 12:31-0400 Heart rate 74 /min Tom ARGUETA [facility] 11-20-2021 12:31-0400 Respiratory rate 16 /min Tom LIZABETH [facility] 11-20-2021 12:31-0400 Systolic blood pressure 133 mm[Hg] [facility] En[facility]ters Encounter Date Encounter Type Care Provider Facility Start: 01-08-2024 ambulatory Chadd BARBOUR Facility : [facility] Start: 01-06-2024 End: 01-06-2024 ambulatory Natali Weir MD Facility: [facility] Start: 01-01-2024 End: 01-01-2024 ambulatory Chadd BARBOUR Facility:CD:[id number] Start: 12-18-2023 End: 12-18-2023 ambulatory Chadd BARBOUR Facility: [facility] Start: 12-18-2023 End: 12-18-2023 [facility] Start: 12-16-2023 End: 12-16-2023 ambulatory Natali Weir MD Facility: [facility] Start: 12-02-2023 End: 12-02-2023 ambulatory Natali Weir MD Facility: [facility] Start: 11-18-2023 End: 11-18-2023 ambulatory Natali Weir MD Facility:[facility] Start: 11-05-2023 End: 11-05-2023 ambulatory [facility] Work Phone: Start: 11-05-2023 End: 11-05-2023 Patient encounter procedure [facility] Work Phone: Start: 11-05-2023 Non-patient / Non-visit [facility] Work Phone: Start: 10-01-2023 End: 10-01-2023 ambulatory DOMINGAJEANNETTE PRESLEY Facility:[facility] Start: 10-01-2023 End: 10-01-2023 Patient encounter procedure DOMINGA PRESLEY [facility] Start: 09-17-2023 Non-patient / Non-visit [facility] Work Phone: Start: 04-03-2023 End: 04-03-2023 ambulatory Theron Ball Other [facility] Other Start: 04-03-2023 Telephone encounter Theron Ball [facility] Start: 04-02-2023 End: 04-02-2023 ambulatory Theron Ball Other [facility] Other Start: 04-02-2023 Office outpatient vi sit 25 minutes Theron Ball [facility] Start: 04-01-2023 End: 04-01-2023 ambulatory Theron Ball Other [facility] Other Start: 04-01-2023 Telephone encounter Theron Ball [facility] Start: 01-07-2023 End: 01-07-2023 ambulatory Theron Ball Other [facility] Other Start: 01-07-2023 Telephone encounter Theron Ball [facility] Start: 11-01-2022 End: 11-01-2022 ambulatory Theron Ball Other [facility] Other Start: 11-01-2022 Patient encounter procedure Theron Ball [facility] Start: 10-03-2022 End: 10-03-2022 ambulatory Theron Ball Other [facility] Other Start: 10-03-2022 Office outpatient vi sit 15 minutes Theron Mendoza [facility] Start: 10-03-2022 Telephone encounter Theron Matt [facility] Start: 04-30-[address] THERON MENDOZA Facili ty:[facility] Start: 03-29-2022 End: 03-30-[address] THERON MENDOZA Facility:[facility] Start: 11-25-2021 End: 11-26-[address] THERON MENDOZA Facility:[facility] Start: 11-24-2021 End: 11-25-[address] THERON MENDOZA Facility:[facility] Start: 11-22-2021 Adult health examination Theron Matt Other [facility] Other Start: 11-20-2021 End: 11-20-2021 Patient encounter procedure Tom ARGUETA [facility] Start: 09-14-2021 End: 09-15-[address] THERON MENDOZA Facility:[facility] Start: 09-10-2017 End: 09-11-2017 Ambulatory DEFAULT PHYSICIAN Facility:[facility] Start: 04-25-2017 End: 04-26-2017 Ambulatory PROVIDER UNKNOWN Facility:[facility] Start: 04-15-2017 End: 04-16-2017 Evaluation and management of inpatient THERON MENDOZA Facility:[facility] Procedures Date Procedure Procedure Detail Performing [...] Theron Mendoza Other Start: 10-07-2013 Colonoscopy Chadd BANUELOS EMMANUEL Start: 04-29-2013 Colonoscopy normal (finding) Tom ARGUETA [...] of knee Tom ARGUETA Cardiac catheterization Andrew mckenzie ANGLE Depression screening Rasheed Mendoza Other Operation on heart Tom MARTINEZ Placement of stent i n cardiac conduit Tom ARGUETA Placement of stent i n coronary artery Chadd GUERRALeti Plan of Treatment Date Care Activity Detail Author Start: 10-02-2024 ambulatory Ambulatory Facility:[facility]R Lumbar spine Views [facility] XR Pelvis 1 or 2 Views [facility] Immunizations Immunization Date Immunization Notes Care Provider Kaden rueda 04-03-2022 influenza virus vaccine, split virus (incl. purified surface antigen) Theron Mendoza Other [facility] Other 04-03-2022 influenza virus vaccine, unspecified formulation [facility] 04-03-2022 Prevnar 20 Theron Mendoza Other [facility] 03-28-2021 influenza virus vaccine, split virus (incl. purified surface antigen) Theron Mendoza Other [facility] Other 03-28-2021 influenza virus vaccine, unspecified formulation DOMINGA PRESLEY [facility] 04-03-2018 diphtheria, tetanus toxoids and acellular pertussis vaccine, unspecified formulation Theron Matt Other [facility] pneumococcal Conjuga te, unspecified formulation; Translations: [Need for prophylactic vaccination against Streptococcus pneumoniae (pneumococcus)] Theron Mendoza Other [facility] Other Payers Date Payer Category Payer Private Health Insurance 2016 Unknown 1959 Medicare [id number] 1959 Private Health Insurance [id number] 1959 Self-pay [id number] 1950 Unknown [id number] 2.16.84 [id number] 1951 Unknown [id number] 2.16.84 [id number] 1951 Unknown [id number] 2.16.84 [id number] 1951 Unknown [id number] 2.16.84 0.1.104932.3.579.2.593 1951 Unknown [id number] 2.16.84 0.1.634129.3.579.2.593 1951 Unknown [id number] 2.16.8 40.1.561253.3.579.2.727 1951 Unknown [id number] 2.16.8 40.1.022980.3.579.2.727 1951 Unknown [id number] 2.16.8 40.1.362400.3.579.2.727 1951 Unknown [id number] 2.16.8 40.1.426508.3.579.2.727 1951 Unknown [id number] 2.16.8 40.1.375877.3.579.2.727 1951 Unknown [id number] 2.16. [id number] 1950 Unknown [id number] 2.16. 840.1.753930.3.579.2.196 1950 Unknown [id number] 2.16. [id number] 1950 Unknown [id number] 2.16. [id number] Medicare [id number] Social History Date Type Detail Facility Start: 04-10-2021 End: 12-18-2023 Tobacco smoking status Ex-smoker (finding) [facility] Sex Assigned At Male [facility] Tobacco smoking status Never [facility] Start: 11-05-2023 Tobacco smoking stat [facility] Never smoked tobacco (finding) [facility] Start: 1950 Sex Assigned At Male [facility] Medical Equipment Procedure Code Equipment Code Equipment Origin al Text Equipment Identifier Dates BD Pen Needle Sh ort U/F 31G X 8 MM Start: 01-07-2023 Functional Status Date Assessment Result Facility 12-18-2023 Functional Status N/A [facility] 10-01-2023 Functional Status N/A [facility] 11-20-2021 Functional Status N/A [facility] Clinical Notes 11-20-2021 to 12-18-2023 Note Date [...] Daily pioglitazone 1 (more content not included)... [facility] Comment on above: Result Comment: Elec [...] urethra. Follow these instructions at home: Take yxlk-kvx-vmdmqeb and prescription medicines only as told by [...] provider. Document Revised: 11/01/2021 Document Reviewed: 11/01/2021 [employer] Patient Education 2022 [employer]apest[employer]. Follow Up Care 09/17/2022 11:39:15 With:DOMINGA PRESLEY PA-C, URL Address: [address] [place] [address] When: Unknown [facility] 04-02-2023 Evaluation note Encounter Date Diagnosis Assessment [...] risk for cerebrovascular and cardiovascular disease. Mar, correction (current) use of insulin (ICD-10 - Z79.4) [...] dyspnea, CP or lightheadedness _update office tomorrow [facility] Other 12-04-2023 Evaluation note* Encounter Date Diagnosis Assessment Notes Treatment Notes Treatment Clinical Notes Mar, Primary hypertension (ICD-10 - I10) Mar, Type 2 diabetes mellitus with hyperglycemia (ICD-10 - E11.65) Mar, Mixed hyperlipidemia (ICD-10 - E78.2) Mar, ASHD (arteriosclerotic heart disease) (ICD-10 - I25.10) Mar, High risk medication use (ICD-10 - Z79.899) [facility] Other 09-11-2023 Evaluation note* Encounter Date Diagnosis Assessment Notes Treatment Notes Treatment Clinical Notes Dec, Type 2 diabetes mellitus with hyperglycemia (ICD-10 - E11.65) [facility] Other 07-06-2023 Evaluation note* Encounter Date Diagnosis [...] risk for cerebrovascular and cardiovascular disease. 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 They are also encouraged to continue exercise to achieve/maintain a normal BMI. Oct, Screening PSA (prostate specific antigen) (ICD-10 - Z12.5) Completed w/ , normal [facility] Other 06-07-2023 Evaluation note* Encounter Date Diagnosis [...] to achieve/maintain a normal BMI. Avoid NSAIDs [facility] Other 07-25-2022 Hospital Discharge instructions Patient Education [...] Follow these instructions at home: Medicines Take oqmf-fjm-wybssuv and prescription medicines only as told by [...] or the blood stops without treatment. Take ghls-tls-wrsbcwr and prescription medicines only as told by your health care provider. Drink enough fluid to keep your urine clear or pale yellow. This information is not intended to replace advice given to you by your health care provider. Make sure you discuss any questions you have with your health care provider. Document Released: 04/15/2006 Document Revised: 09/09/2019 Document Reviewed: 05/18/2017 [employer] Patient Education 2020 eTapestry. Follow Up Care 09/21/2021 10:23:43 With:Tom ARGUETA MD, URL Address: [facility] [address], [place] [address] [phone] When: Unknown [facility] evaluation + Plan note Future Appointments Appointment Date:11/28/2021 08:45:00 AM Scheduled Provider: Location:[facility] Appointment Type:Urology CALL PAT FT Appointment Date:12/12/2021 10:30:00 AM Scheduled Provider: Location:[facility] Appointment Type:Urology FT Appointment Date:04/13/2022 10:45:00 AM Scheduled Provider:Tom ARGUETA MD Location:[facility] Appointment Type:URO Office Visit [facility] evaluation + Plan note Future Appointments Appointment Date:10/02/2024 10:15:00 AM Scheduled Provider:Tom ARGUETA MD Location:[facility] Appointment Type:URO Office Visit Diagnostic Tests Pending * PSA Total 10/01/23 [facility] evaluation + Plan note Future Appointments Appointment Date:10/02/2024 10:15:00 AM Scheduled Provider:Tom ARGUETA MD Location:[facility] Appointment Type:URO Office Visit [facility] Evaluation noteNo InformationNort [employer] Other Evaluation note* Diagnosis Onset Date Resolution Status Anemia acute ASHD (arteriosclerotic heart disease) acute GERD (gastroesophageal reflux disease) acute Hypercholesterolemia acute Hypertension acute Type 2 diabetes mellitus with hyperglycemia acute Medicare annual wellness visit, subsequent noneactive Screening for colon cancer n oneactive [facility] Work Phone: History general Narrative - Reported* Type Description Date Medical History ASHD Medical History HTN Medical History Hyperlipidemia Medical History T2DM Medical History GERD Surgical History ANGIOPLASTY Surgical History [facility] PCI/stent RCA and LAD [address] [facility] PCI/stent RCA [address] [facility] PCI/stent OM and LCx [address] [facility] PCI/stent RCA x [address] [facility] PCI/stent LAD 2017 Surgical History TURP, TRUS/bx 2009 Surgical History Arthroscopy right knee 2005, 20 14 Surgical History Arthroscopy left knee 2003 Hospitalization History see surgical history [facility] Other Hospital course Narrative No data available for this section [facility] Hospital Discharge instructions No data available for this section [facility] [employer] Progress note No data available for this section [facility] reason for referral (narrative)* Reason Referral for interna l derangement right knee Diagnosis 1 Internal derangement of right knee (M23.91) Referral Organization [facility] Margy durant Referring Provider First Name Theron Referring [...] Notes MRI right knee to be included [employer] Other Summary Purpose Family History No Family [...] section and content) DATE CREATED AUTHOR 10/16/2017 [facility] DATE CREATED AUTHOR AUTHOR'S ORGANIZ ATION 04/04/2019 [facility] DATE CREATED AUTHOR AUTHOR'S ORGANIZ ATION 04/30/2022 [facility] DATE CREATED AUTHOR AUTHOR'S ORGANIZ ATION 01/08/2024 [facility] DATE CREATED AUTHOR AUTHOR'S ORGANIZ ATION 01/12/2024 [facility] Care Team (unrecognized sect ion and content) [...] (unrecogniz ed section and content) Wants in [place] InformationNo InformationBlood Work?Check UpUpdate Goals (unrecognized [...] BE BASED ON THE PRIMARY CLINICAL RECORDS. [facility] [employer] [facility] provides no warranty or guarantee of the accuracy or completeness of information in this document.
--- NOTE | 2024-03-18 09:26 | P.CN_ITS ---
Consult Note: HPI Data of Consult Patient: known to practice within the last 3 years Consult date: 12/02/23 Requesting Physician: Lisa Barcenas NP Primary Care Provider: Theron Lora DO Consult Narrative Reason for consult: low back pain Narrative: 73yom who presents for assessment. persistent pain that radiates into bilateral lower extremities. imaging reviewed, which is significant for moderate to severe spondylosis and stenosis at l4-5 and l5-s1. continues in physical therapy and provider directed home exercises, without lasting benefit. uses tylenol as needed. denies adverse med side effects. previous bilateral l4-5 TFESI and L5-S1 TFESI providing >50% improvement ongoing, noticing increase in bilateral low back hip pain, feels like a deep ache and stiffness. cc:: CC: Lisa Barcenas NP Review of Systems ROS Status of ROS 10 or more systems reviewed and unremark able except as noted in history and below Musculoskeletal Reports: back pain and joint pain; Denies: extremity pain or extremity swelling PFSH [facility] Medical History (Updated 03/18/24 @ 09:27 by Lisa Barcenas NP) Lymphocytopenia ?D72.810 - Lymphocytopenia (ICD-10) Lumbar spondylolysis ?M43.06 - Spondylolysis, lumbar region (ICD-10) History of nephrolithiasis ?Z87.442 - Personal history of urinary calculi (ICD-10) Epidermal cyst of neck ?L72.0 - Epidermal cyst (ICD-10) Chronic prostatitis ?N41.1 - Chronic prostatitis (ICD-10) BPH with urinary obstruction ?N40.1 - Benign prostatic hyperplasia with lower urinary tract symptoms (ICD- 10) ?N13.8 - Other obstructive and reflux uropathy (ICD-10) Anemia ?D64.9 - Anemia, unspecified (ICD-10) Coronary artery disease ?I25.10 - Atherosclerotic heart disease of [place] coronary artery without angina pectoris (ICD-10) Osteoarthritis ?M19.90 - Unspecified osteoarthritis, unspecified site (ICD-10) Acid reflux ?K21.9 - Gastro-esophageal reflux disease without esophagitis (ICD-10) Diabetes ?E11.9 - Type 2 diabetes mellitus without complications (ICD-10) High cholesterol ?E78.00 - Pure hypercholesterolemia, unspecified (ICD-10) HTN (hypertension) ?I10 - Essential (primary) hypertension (ICD-10) Myocardial infarct ?I21.9 - Acute myocardial infarction, unspecified (ICD-10) Surgical History History of arthroscopy of knee ?Z98.890 - Other specified postprocedural states (ICD-10) History of cardiac catheterization ?Z98.890 - Other specified postprocedural states (ICD-10) History of prostate biopsy ?Z98.890 - Other specified postprocedural states (ICD-10) History of transurethral resection of prostate ?Z98.890 - Other specified postprocedural states (ICD-10) ?Z90.79 - Acquired absence of other genital organ(s) (ICD-10) History of colonoscopy ?Z98.890 - Other specified postprocedural states (ICD-10) History of cystoscopy ?Z98.890 - Other specified postprocedural states (ICD-10) History of heart artery stent ?Z95.5 - Presence of coronary angioplasty implant and graft (ICD-10) Family History Other Family history of hypertension Heart disease Social History Within the past year, how often did you have a drink containing alcohol: monthly or less Smoking status: Former smoker Non-prescribed substance use: denies use 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 Highest level of school completed/degree received: some college, no degree Meds Home Medications and Allergies Home Medications ?Medication ?Instructions ?Recorded ?Confirmed ?Type aspirin 81 mg capsule 81 mg PO DAILY 11/18/23 01/06/24 History atenolol 25 mg tablet 25 mg PO Q24H 11/18/23 01/06/24 History atorvastatin 80 mg tablet 80 mg PO DAILY 11/18/23 01/06/24 History clopidogrel 75 mg tablet 75 mg PO DAILY 11/18/23 01/06/24 History insulin glargine 100 unit/mL (3 50 unit subcut DAILY 11/18/23 01/06/24 History mL) subcutaneous pen (Lantus Solostar U-100 Insulin) pantoprazole 40 mg tablet,delayed 40 mg PO DAILY 11/18/23 01/06/24 History release pioglitazone 15 mg tablet 15 mg PO DAILY 11/18/23 01/06/24 History Allergies Allergy/AdvReac Type Severity Reaction Status Date / Time metformin AdvReac Diarrhea Verified 12/24/23 13:00 Exam Narrative Exam Narrative: Psych-alert and oriented x 3. Attentive and appropriate, constitutionally normal, displays normal mood and affect per situation. There are no obvious deficits in memory, reasoning, or intellect.? Skin-no obvious rashes, bruising, erythema noted to the patient's area of pain.? Extremities- extremities are warm with minimal edema and palpable pulses. Lumbar-tenderness to palpation noted in the lumbar spine and paraspinal musculature. Pain is elicited with flexion, extension, and lateral rotation of the lumbar spine. Range of motion is diminished with these motions. Facet loading maneuvers are positive. Strength-noted to be unremarkable Sensory-no notable sensory deficits in the bilateral lower extremities to touch or pinprick in all dermatomal distributions Coordination remains intact.? Gait remains non-antalgic. Assessment and Plan Assessment and Plan (1) Lumbar spondylosis: (2) Lumbar stenosis with neurogenic claudication: (3) Myalgia: Plan bilateral L4-5 L5-S1 MBB x2 working towards RFA continue HEP as tolerated start baclofen 5-10mg TID PRN pain/spasms f/u after each injection
== END 2024-03-18 08:59 | disposition home or self-care (01) ==
LOC: PM 08:58
PROVIDERS: PCP Internal Medicine; Visit Provider Nurse Practitioner
DX: M47.816 Spondylosis without myelopathy or radiculopathy, lumbar region (principal); M48.062 Spinal stenosis, lumbar region with neurogenic claudication; M79.18 Myalgia, other site
CPT/HCPCS: G0463

== ENCOUNTER 2024-03-23 10:05 | Day surgery (SDC) | payer MEDICARE, OTHER, SELFPAY ==
--- OUTSIDE RECORDS SUMMARY | 2024-03-23 10:26 | XMS_ITS | CCD ---
Author Organization [facility] Care Team Providers Care Affiliate Manager Name Role Phone THERON MENDOZA Unavailable Unavailable TINO GUNDERSON Unavailable Unavailable RACHELL, [place] GREGORIO Unavailable Unavailable RACHELL, MO AM Unavailable Unavailable NM Unavailable Unavailable UNKNOWN, PROVIDER Unavailable Unavailable UNKNOWN, PROVIDER Unavailable Unavailable UNKNOWN, PROVIDER Unavailable Unavailable MATT, THERON Unavailable Unavailable MATT, THERON Unavailable Unavailable PHYSICIAN, DEFAULT Unavailable Unavailable PHYSICIAN, DEFAULT Unavailable Unavailable MATT, THERON Unavailable Unavailable MATT, THERON Primary Care Physician MATT, DR CRUMP Primary Care Unavailable LIZABETH, [...] Date of Onset Reaction(s) Facility (1 source) 41130,00; Translations: [90763,00] Propensity to adverse reactions (disorder) 9 [facility] Repository (12 sources) metFORMIN; Translations: [metFORMIN] Drug Allergy diarrhea, Unknown [facility] Repository (3 sources) patient allergy list reviewed by nurse or physicia Propensity to adverse reactions 8 Comment:Done [employer] Other (1 source) No Known Medication Allergies; Translations: [No Known Medication Allergies] Propensity to adverse reactions (disorder) [facility] Repository Medications Current Medications Medication [...] procedure, # 2 cap(s), Refills(s) 0, Pharmacy: [facility]/pharmacy #[id number], 177, cm, 11/20/21 12:47:00 EDT, [...] disease (20 sources) 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; Translations: [Atherosclerotic heart disease of false pass coronary artery without angina pectoris] Onset: 08-25-2013 [...] Onset: 09-18-2013 Chronic Other aftercare (6 sources) group home (current) use of insulin; Translations: [group home (current) use of antithrombotics/antip latelets] Onset: 04-15-2017 Episodic Other aftercare (8 sources) Long-term current use of insulin; 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 Normal [facility] Cholesterol in LDL Calc [Mas s/Vol]on 11-05-2023 Cholesterol in LDL [Mass/Vol] 42.0 mg/dL [facility] Comment on above: <100 mg/dl [id number] mg/dl NEAR OR ABOVE [id number] mg/dl BORDERLINE [id number] mg/dl HIGH>190 mg/dl VERY HIGH Cholesterol in VLDL Calc [Ma ss/Vol]on 11-05-2023 Cholesterol in VLDL [Mass/Vol] 35.6 mg/dL [facility] Estimated glomerular filtrat ion rate (GFR) non- Americanon 11-05-2023 GFR/1.73 sq M.predicted among non-blacks MDRD (S/P/Bld) [Vol rate/Area] mL/min/{1.73_m2} >=60 [facility] Globulin Calc (S) [Mass/Vol] on 11-05-2023 Globulin (S) [Mass/Vol] 3.3 g/dL [facility] Glucose mean value [Mass/vol ume] in Blood Estimated from glycated hemoglobinon 11-05-2023 Average glucose Estimated from glycated hemoglobin (Bld) [Mass/Vol] 143 mg/dL [facility] Laboratory - Chemistry and C hemistry - challengeon 11-05-2023 Albumin [Mass/Vol] 4.0 g/dL 3.4-5.0 [facility] ALP [Catalytic activity/Vol] 74 U/L 46-116 [facility] ALT [Catalytic activity/Vol] 48 U/L 16-63 [facility] AST [Catalytic activity/Vol] 34 U/L 15-37 [facility] Bilirubin [Mass/Vol] 0.9 mg/dL 0.2-1.0 [facility] Calcium [Mass/Vol] 8.6 mg/dL 8.5-10.1 [facility] Chloride [Moles/Vol] 103 mmol/L 98-107 [facility] Cholesterol [Mass/Vol] 119 mg/dL <=200 [facility] Cholesterol in HDL [Mass/Vol] 42 mg/dL 40-60 [facility] Comment on above: > or =60 mg/dl - LOW CARDIOVASCULAR RISK <40 mg/dl - HIGH CARDIOVASCULAR RISK CO2 [Moles/Vol] 28.3 mmol/L 21.0-32.0 [facility] Creatinine [Mass/Vol] 1.10 mg/dL 0.70-1.30 [facility] GFR/1.73 sq M.predicted MDRD (S/P/Bld) [Vol rate/Area] mL/min/{1.73_m2} >=60 [facility] Glucose [Mass/Vol] 139 mg/dL High 74-106 [facility] Potassium [Moles/Vol] 4.1 mmol/L 3.5-5.1 [facility] Protein [Mass/Vol] 7.3 g/dL 6.4-8.2 [facility] Sodium [Moles/Vol] 141 mmol/L 136-145 [facility] Triglyceride [Mass/Vol] 178 mg/dL High <=150 [facility] Urea nitrogen [Mass/Vol] 21.0 mg/dL High 7.0-18.0 [facility] Urea nitrogen/Creatin ine [Mass ratio] 19.1 mg/mg [facility] Laboratory - Hematology and Cell countson 11-05-2023 HbA1c (Bld) [Mass fraction] 6.6 % High 4.5-6.2 [facility] Comment on above: ADA RECOMMENDED LIMIT 4.0 - 6.0ADA THERA PEUTIC TARGET < 7.0ACTION SUGGESTED> 7.0 Microalbumin [Mass/volume] i n Urineon 11-05-2023 Albumin DL <= 20 mg/L (U) [Mass/Vol] 3.4 mg/dL <=30.0 [facility] Serum or plasma albumin/glob ulin mass ratioon 11-05-2023 Albumin/Globulin [Mass ratio] 1.2 {ratio} [facility] Serum or plasma anion gap de terminationon 11-05-2023 Anion gap [Moles/Vol] 13.8 mmol/L [facility] Serum or plasma total choles terol/high density lipoprotein (HDL) cholesterol mass aquiles 11-05-2023 Cholesterol.tota l/Cholesterol in HDL [Mass ratio] 2.8 {ratio} [facility] Comment on above: 3.3 - 4.4 LOW RISK4.4 - 7.1 AVERAGE RISK 7.1 - 11.0 MODERATE RISK>11.0 HIGH RISK Screenson 10-02-2023 Screens [id number] Normal [facility] Screens [id number] Normal [facility] Ambulatory Visit Summaryon 0 10-01-2023 [...] NUÑEZ, Tom Cohen Where: [facility] Patient Educationon 10-01-19 Patient Education Urology [...] Follow these instructions at home: ? Take xmrb-ncy-nyvqigh and prescription medicines only as told by [...] the medicine (more content not included)... Normal [facility] Urology Office/Clinic Noteon 10-01-2023 Urology [...] Contact Information SAKINA RANDALL, DOMINGA Multani, URL [address] [place] [address] Additional Instructions: 1 yr PSA Patient Education Benign Prostatic Hyperplasia Documentation recorded by the scribcourtney Marcus accurately reflects the services(s) I performed and decisions made by me. Authenticated by Dominga Presley PA-C on 10/01/2023 13:07:16. Trish Bordne, personally scribed for RIGO [employer] on 10/01/2023 [...] virus vaccine (more content not included)... Normal [facility] Comment on above: Result Comment: Electronically Signed By : DOMINGA PRESLEY PA-C\.br\Date and Time Signed: 10/01/23 13:08 EDT\.br\Electronically Co-Signed By: Trish Marcus\.br\Date and Time Co-Signed: 10/01/23 13:03 EDT Lab Reportson 09-18-2023 Lab Reports [id number]#[id number] [facility] RAD - Ultrasound Reporton RAD - Ultrasound Report [id number] [facility] No Panel Informationon 09-16 Free Prostate Specific Antigen 0.78 ng/mL N/A [facility] Comment on above: Augustina ECLIA methodology. Prostate Specific Antigen Total 1.9 ng/mL 0.0-4.0 [facility] Comment on above: Augustina ECLIA methodology.According to the [place] [employer], Serum PSAshould decrease and remain [...] PSA/Total PSA [Mass fraction] 41.1 % . [facility] Comment on above: The table below lists [...] any other population of men.Performed at: - [address] [id number] Director: Guanakito Cota PhD, Phone: [phone] Reminderson 08-22-2023 Reminders - From: Sade Kilgore [...] appt. LM on VM informing pt that [facility] will be reaching out to get MINESH scheduled. Appt 09/20/23 to review results. Order & demo's faxed to the [facility] CS. MINESH scheduled 09/17/23 @ [facility] Normal [facility] GLYCOHEMOGLOBIN A1Con 2021 ADA RECOMMENDATION SEE BELOW Normal [facility] Comment on above: Result Comment: ADA RECOMMENDED LIMIT 4. 0 - 6.0 ADA THERAPEUTIC TARGET < 7.0 ACTION SUGGESTED > 7.0 Performed By: #### A 1C #### [facility] [address], [place] [address] Dr. Yara Chavez Glucose [Mass/Vol] 166 mg/dL Normal [facility] Comment on above: Performed By: #### A1C #### [facility] [address] [place], [place] [address] Dr. Yara Chavez HbA1c (Bld) [Mass fraction] 7.4 % Critically high 4.5-6.2 [facility] Comment on above: Performed By: #### A1C #### [facility] [address] [place], [place] [address] ABD/PELV W CONon [...] PARAS SOMMERS Date: 2021-11-26 02:01 Normal [facility] CBC AUTO DIFFon 11-24-2021 BASO # 0.0 103/ul Normal 0.0-0.1 [facility] Comment on above: Performed By: #### CBC #### [facility] [address] [place] [address] Dr. Yara Chavez Basophils/100 WBC (Bld) 0.7 % Normal 0.2-2.0 [facility] Comment on above: Performed By: #### CBC #### [facility] [address] [place] [address] [address] Yara Chavez EO # 0.0 103/ul Normal 0.0-0.7 [facility] Comment on above: Performed By: #### CBC #### [facility] [address] [address] [address] Yara Chavez Eosinophils/100 WBC (Bld) 1.0 % Normal 0.9-7.0 [facility] Comment on above: Performed By: #### CBC #### [facility] [address] [address] [address] Yara Chavez Erythrocyte distribution width (RBC) [Ratio] 14.7 % Normal 11.0-15.0 [facility] Comment on above: Performed By: #### CBC #### [facility] [address] [address] [address] Yara Chavez Hematocrit (Bld) [Volume fraction] 38.7 % Critically low 42.0-54.0 [facility] Comment on above: Performed By: #### CBC #### [facility] [address] [place] [address] Dr. Yara Chavez Hemoglobin (Bld) [Mass/Vol] 12.3 g/dL Critically low 14.0-18.0 [facility] Comment on above: Performed By: #### CBC #### [facility] [address] [place] [address] Dr. Yara Chavez IG # 0.01 10e3/ul Normal 0.00-0.03 [facility] Comment on above: Performed By: #### CBC #### [facility] [address] [place] [address] Dr. Yara Chavez IG % 0.3 % Normal 0.0-0.5 [facility] Comment on above: Performed By: #### CBC #### [facility] [address] [place] [address] Dr. Yara Chavez LYMPH # 1.1 103/ul Critically low 1.2-3.8 [facility] Comment on above: Performed By: #### CBC #### [facility] [address] [place] [address] Dr. Yara Chavez Lymphocytes/100 WBC (Bld) 36.1 % Normal 20.5-60.0 [facility] Comment on above: Performed By: #### CBC #### [facility] [address] [place] [address] Dr. Yara Chavez MANUAL DIFF REQ NO Normal [facility] Comment on above: Performed By: #### CBC #### [facility] [address] [place] [address] Dr. Yara Chavez MCH (RBC) [Entitic mass] 28.0 pg Normal 25.9-34.0 [facility] Comment on above: Performed By: #### CBC #### [facility] [address] [place] [address] Dr. Yara Chavez MCHC (RBC) [Mass/Vol] 31.8 g/dL Normal 29.9-35.2 [facility] Comment on above: Performed By: #### CBC #### [facility] [address] [place] [address] Dr. Yara Chavez MCV (RBC) [Entitic vol] 88.2 fL Normal 80.0-94.0 [facility] Comment on above: Performed By: #### CBC #### [facility] [address] [place] [address] Dr. Yara Chavez MONO # 0.3 103/ul Normal 0.3-0.8 [facility] Comment on above: Performed By: #### CBC #### [facility] [address] [place] [address] Dr. Yara Chavez Monocytes/100 WBC (Bld) 9.5 % Normal 1.7-12.0 [facility] Comment on above: Performed By: #### CBC #### [facility] [address] [place] [address] Dr. Yara Chavez NEUT # 1.5 103/ul Normal 1.4-6.5 [facility] Comment on above: Performed By: #### CBC #### [facility] [address] [place] [address] Dr. Yara Chavez Neutrophils/100 WBC (Bld) 52.4 % Normal 43.0-75.0 [facility] Comment on above: Performed By: #### CBC #### [facility] [address] [place] [address] Dr. Yara Chavez Platelet mean volume (Bld) [Entitic vol] 10.1 fL Normal 9.5-13.5 [facility] Comment on above: Performed By: #### CBC #### [facility] [address] [place] [address] Dr. Yara Chavez PLT 195 103/ul Normal 150-450 [facility] Comment on above: Performed By: #### CBC #### [facility] [address] [place] [address] Dr. Yara Chavez RBC 4.39 106/ul Critically low 4.70-6.10 [facility] Comment on above: Performed By: #### CBC #### [facility] [address] [place] [address] Dr. Yara Chavez WBC 2.9 103/ul Critically low 4.0-11.0 [facility] Comment on above: Performed By: #### CBC #### [facility] [address] [place] [address] [address] Yara Chavez LIPID PROFILEon 11-24-2021 CHOL-HDL RATIO NORM SEE BELOW Normal [facility] Comment on above: Result Comment: 3.3 - 4.4 LOW RISK 4.4 - 7.1 AVERAGE RISK 7.1 - 11.0 MODERATE RISK >11.0 HIGH RISK Performed By: #### A LT, BMP, LIPID #### [facility] [address] [place], [place] [address] Dr. Yara Chavez Cholesterol [Mass/Vol] 124 mg/dL Normal <=200 [facility] Comment on above: Performed By: #### ALT, BMP, LIPID #### [facility] [address] [address] [address] Yara Chavez Cholesterol in HDL [Mass/Vol] 41 mg/dL Normal 40-60 [facility] Comment on above: Performed By: #### ALT, BMP, LIPID #### [facility] [address] [address] [address] Yara Chavez Cholesterol in LDL [Mass/Vol] 56.8 mg/dL Normal [facility] Comment on above: Performed By: #### ALT, BMP, LIPID #### [facility] [address] [place], [place] [address] Dr. Yara Chavez Cholesterol.tota l/Cholesterol in HDL [Mass ratio] 3.0 {ratio} Normal [facility] Comment on above: Performed By: #### ALT, BMP, LIPID #### [facility] [address] [place], [place] [address] Dr. Yara Chavez HDL NORMAL > or = 60 mg/dl - LO W CARDIOVASCULAR RISK <40 mg/dl - HIGH CARDIOVASCULAR RISK Normal [facility] Comment on above: Performed By: #### ALT, BMP, LIPID #### [facility] [address] [place], [place] [address] Dr. Yara Chavez LDL CALC NORMAL SEE BELOW Normal [facility] Comment on above: Result Comment: <100 mg/dl OPTIMAL 100 - 129 mg/dl NEAR OR ABOVE OPTIMAL 130 - 159 mg/dl BORDERLINE HIGH 160 - 189 mg/dl HIGH >190 mg/dl VERY HIGH Performed By: #### A LT, BMP, LIPID #### [facility] [address] [address] [address] Yara Chavez Triglyceride [Mass/Vol] 131 mg/dL Normal <=150 [facility] Comment on above: Performed By: #### ALT, BMP, LIPID #### [facility] [address] [address] [address] Yara Chavez VLDL CALC 26.2 mg/dL Normal [facility] Comment on above: Performed By: #### ALT, BMP, LIPID #### [facility] [address] [place] [address] Dr. Yara Chavez MICROALBUMIN, RAND URon 07- mALB 1.4 mg/L Normal <=30.0 [facility] Comment on above: Performed By: #### MALBR #### [facility] [address] [place] [address] Dr. Yara Chavez PROF CHEM 8 (BAS METB)on Anion gap [Moles/Vol] 10.1 mmol/L Normal [facility] Comment on above: Performed By: #### ALT, BMP, LIPID #### [facility] [address] [place] [address] Dr. Yara Chavez Calcium [Mass/Vol] 9.0 mg/dL Normal 8.5-10.1 [facility] Comment on above: Performed By: #### ALT, BMP, LIPID #### [facility] [address] [place] [address] Dr. Yara Chavez Chloride [Moles/Vol] 105 mmol/L Normal 98-107 [facility] Comment on above: Performed By: #### ALT, BMP, LIPID #### [facility] [address] [place] [address] Dr. Yara Chavez CO2 [Moles/Vol] 31.3 mmol/L Normal 21.0-32.0 [facility] Comment on above: Performed By: #### ALT, BMP, LIPID #### [facility] [address] [address] [address] Yara Chavez Creatinine [Mass/Vol] 1.24 mg/dL Normal 0.70-1.30 [facility] Comment on above: Performed By: #### ALT, BMP, LIPID #### [facility] [address] [address] [address] Yara Chavez EGFR-AF CHILEAN >60 Normal >=60 [facility] Comment on above: Performed By: #### ALT, BMP, LIPID #### [facility] [address] [address] [address] Yara Chavez EGFR-NON AF CHILEAN 58 mL/min/1.73m2 Critically low >=60 [facility] Comment on above: Performed By: #### ALT, BMP, LIPID #### [facility] [address] [address] [address] Yara Chavez Glucose [Mass/Vol] 102 mg/dL Normal 74-106 [facility] Comment on above: Performed By: #### ALT, BMP, LIPID #### [facility] [address] [address] [address] Yara Chavez Potassium [Moles/Vol] 4.4 mmol/L Normal 3.5-5.1 [facility] Comment on above: Performed By: #### ALT, BMP, LIPID #### [facility] [address] [address] [address] Yara Chavez Sodium [Moles/Vol] 142 mmol/L Normal 136-145 [facility] Comment on above: Performed By: #### ALT, BMP, LIPID #### [facility] [address] [address] [address] Yara Chavez Urea nitrogen [Mass/Vol] 22.0 mg/dL Critically high 7.0-18.0 [facility] Comment on above: Performed By: #### ALT, BMP, LIPID #### [facility] [address] [address] [address] Yara Chavez Urea nitrogen/Creatin ine [Mass ratio] 17.7 mg/mg Normal [facility] Comment on above: Performed By: #### ALT, BMP, LIPID #### [facility] [address] [address] [address] Yara Chavez SGPTon 11-24-2021 ALT [Catalytic activity/Vol] 48 U/L Normal 16-63 [facility] Comment on above: Performed By: #### ALT, BMP, LIPID #### [facility] [address] [place] [address] Dr. Yara Chavez GLYCOHEMOGLOBIN A1Con 2021 ADA RECOMMENDATION SEE BELOW Normal [facility] Comment on above: Result Comment: ADA RECOMMENDED LIMIT 4. 0 - 6.0 ADA THERAPEUTIC TARGET < 7.0 ACTION SUGGESTED > 7.0 Performed By: #### A 1C #### [facility] [address] [place] [address] Dr. Yara Chavez Glucose [Mass/Vol] 169 mg/dL Normal [facility] Comment on above: Performed By: #### A1C #### [facility] [address] [place] [address] Dr. Yara Chavez HbA1c (Bld) [Mass fraction] 7.5 % Critically high 4.5-6.2 [facility] Comment on above: Performed By: #### A1C #### [facility] [address] [place] [address] Dr. Yara Chavez PROF CHEM 8 (BAS METB)on Anion gap [Moles/Vol] 12.0 mmol/L Normal [facility] Comment on above: Performed By: #### BMP #### [facility] [address] [place] [address] Dr. Yara Chavez Calcium [Mass/Vol] 8.7 mg/dL Normal 8.5-10.1 [facility] Comment on above: Performed By: #### BMP #### [facility] [address] [place] [address] Dr. Yraa Chavez Chloride [Moles/Vol] 103 mmol/L Normal 98-107 [facility] Comment on above: Performed By: #### BMP #### [facility] [address] [place] [address] Dr. Yara Chavez CO2 [Moles/Vol] 29.1 mmol/L Normal 21.0-32.0 [facility] Comment on above: Performed By: #### BMP #### [facility] [address] [place] [address] [address] Yara Chavez Creatinine [Mass/Vol] 1.17 mg/dL Normal 0.70-1.30 [facility] Comment on above: Performed By: #### BMP #### [facility] [address] [address] [address] Yara Chavez EGFR-AF CHILEAN >60 Normal >=60 [facility] Comment on above: Performed By: #### BMP #### [facility] [address] [address] [address] Yara Chavez EGFR-NON AF CHILEAN >60 Normal >=60 [facility] Comment on above: Performed By: #### BMP #### [facility] [address] [place] [address] Dr. Yara Chavez Glucose [Mass/Vol] 144 mg/dL Critically high 74-106 [facility] Comment on above: Performed By: #### BMP #### [facility] [address] [place] [address] Dr. Yara Chavez Potassium [Moles/Vol] 4.1 mmol/L Normal 3.5-5.1 [facility] Comment on above: Performed By: #### BMP #### [facility] [address] [place] [address] Dr. Yara Chavez Sodium [Moles/Vol] 140 mmol/L Normal 136-145 [facility] Comment on above: Performed By: #### BMP #### [facility] [address] [place] [address] Dr. Yara Chavez Urea nitrogen [Mass/Vol] 18.0 mg/dL Normal 7.0-18.0 [facility] Comment on above: Performed By: #### BMP #### [facility] [address] [place] [address] Dr. Yara Chavez Urea nitrogen/Creatin ine [Mass ratio] 15.4 mg/mg Normal [facility] Comment on above: Performed By: #### BMP #### [facility] [address] [address] [address] Yara Chavez CNOVSPon 04-02-2019 CNOVSP Visit (SP) Office (H EMASA) KIMBERLEELISA ROMO ([id number]) 1950 M Date Time Provider Department 04/02/19 11:15 AM THAIS HEBERT During your visit today, we recorded the following information about you: Temperature Pulse Respiration Blood pressure 98.1 degrees 72/minute 16/minute 131/69 Weight Height 80.5 kg 1.778 m Thais Hebert DO 04/03/2019 1:15 PM Signed PATIENT NAME: Lisa Lugo REFERRING PHYSICIAN: Theron Mendoza MD ([facility]) [address] [place] [address] PRIMARY CARE PHYSICIAN: Theron Mendoza MD CHIEF [...] - CBC + DIFF (FOR REMOTE [facility] USE) - IRON + TIBC - FERRITIN BLD - VITAMIN B12 BLOOD - FOLATE SERUM - METHYLMALONIC ACID - HEP REMOTE PANEL BL - SED RATE [facility] Return labs today. f/u 6 mos. . [...] questions satisfactorily.. Francois Hebert D.O. Medical Oncologist [facility] [place], [place] Referring Provider: THERON MENDOZA [[id number]] Allergies As of Date: 04/02/2019 (No Known Allergies) Date Reviewed: 04/02/2019 Reviewed by: Dorene Germain - Fully Assessed Reason for Visit: abdnormal lab [Other] Cmt: new patient consultation Primary Visit Diagnosis:Leukopenia, unspecified type [D72.819] Other Visit Diagnosis:Abnormal finding of blood chemistry, unspecified [R79.9] Order(s):PROTEIN ELECTROPHORESIS W/INTERP [SQSEPG] Order #: [id number] FUTURE MONOCLONAL PROTEIN, SERUM (BLOOD) [SQSERMPA] Order #: [id number] FUTURE IMMUNOGLOBULINS SHANIA [SQSERIMM] Order #: [id number] FUTURE LD LACTATE DEHYDRO [SQLD6] Order #: [id number] FUTURE COMP METABOLIC PANEL [SQCMP] Order #: [id number] FUTURE CBC + DIFF (FOR REMOTE [facility] USE) [SQRCBCDF] Order #: [id number] FUTURE IRON + TIBC [SQIRON] Order #: [id number] FUTURE FERRITIN BLD [SQFERR] Order #: [id number] FUTURE VITAMIN B12 BLOOD [SQB12] Order #: [id number] FUTURE FOLATE SERUM [SQSERFOL] Order #: [id number] FUTURE METHYLMALONIC ACID [SQMMA] Order #: [id number] FUTURE HEP REMOTE PANEL BL [SQHREMOP] Order #: [id number] FUTURE SED RATE WESTERGREN [SQWSR] Order #: [id number] FUTURE Disposition: Return labs today. f/u 6 [...] by THAIS HEBERT DO on 04/03/19 Normal [facility] Comp Metabolic Panelon 04-02 Albumin [Mass/Vol] 4.4 g/dL Normal 3.9-4.9 [facility] ALP [Catalytic activity/Vol] 102 U/L Normal 38-113 [facility] ALT [Catalytic activity/Vol] 53 U/L Normal 10-54 [facility] Anion gap [Moles/Vol] 13 mmol/L Normal 9-18 [facility] AST [Catalytic activity/Vol] 31 U/L Normal 14-40 [facility] Bilirubin [Mass/Vol] 0.6 mg/dL Normal 0.2-1.3 [facility] Calcium [Mass/Vol] 9.6 mg/dL Normal 8.5-10.2 [facility] Chloride [Moles/Vol] 98 mmol/L Normal 97-105 [facility] CO2 [Moles/Vol] 24 mmol/L Normal 22-30 [facility] Creatinine [Mass/Vol] 0.94 mg/dL Normal 0.73-1.22 [facility] eGFR- Amer. >60 Normal [facility] GFR/1.73 sq M predicted among non-blacks MDRD (S/P/Bld) [Vol rate/Area] mL/min/{1.73_m2} Normal [facility] Comment on above: Result Comment: [...] GFR. Glucose [Mass/Vol] 257 mg/dL High 74-99 [facility] Comment on above: Result Comment: The [place] Diabetes As sociation (ADA) provides guidance for [...] Standards of Medical Care in Diabetes 2016, [place] [employer] Association. Diabetes Care. 2016.39(Suppl 1). Potassium [Moles/Vol] 4.8 mmol/L Normal 3.7-5.1 [facility] Protein [Mass/Vol] 7.4 g/dL Normal 6.3-8.0 [facility] Sodium [Moles/Vol] 135 mmol/L Low 136-144 [facility] Urea nitrogen [Mass/Vol] 19 mg/dL Normal 9-24 [facility] Ferritinon 04-02-2019 Ferritin [Mass/Vol] 279.0 ng/mL Normal 30.3-565.7 [facility] Comment on above: Performed By: #### WSR, B12, SERFOL, IRO N, FERR, SERIMM, HREMOP, SERMPA, SEPG, MMA #### [place] [phone] Folate, Serumon 04-02-2019 Folate [Mass/Vol] ng/mL Normal >4.7 [facility] Comment on above: Result Comment: A result of > 20 ng/mL i s not necessarily indicative of a pathologic or treatable condition: it reflects a limitation of the test methodology. Assay reference range: 4.8 to 24.2 ng/mL. Suitable for detection of folate deficiency. Reference: Folate III (Folate III) [package insert V 2.0 [place]]. [employer], [place], [place]: February 2015. Performed By: #### W SR, B12, SERFOL, IRON, FERR, SERIMM, HREMOP, SERMPA, SEPG, MMA #### [place] [phone] Hepatitis Remote Panelon HBsAg Negative Normal Negative [facility] Comment on above: Performed By: #### WSR, B12, SERFOL, IRO N, FERR, SERIMM, HREMOP, SERMPA, SEPG, MMA #### [place] [phone] Hep B Core Ab,Total Negative Normal Negative [facility] Comment on above: Performed By: #### WSR, B12, SERFOL, IRO N, FERR, SERIMM, HREMOP, SERMPA, SEPG, MMA #### [place] [phone] Hepatitis C Ab [place] Negative Normal Negative [facility] Comment on above: Performed By: #### WSR, B12, SERFOL, IRO N, FERR, SERIMM, HREMOP, SERMPA, SEPG, MMA #### [place] [address] HepB Surface Ab,Qual Negative Normal Negative [facility] Comment on above: Result Comment: NEGATIVE Performed By: #### W SR, B12, SERFOL, IRON, FERR, SERIMM, HREMOP, SERMPA, SEPG, MMA #### [place] [address] Immunoglobulins GAMon 2018 IgA [Mass/Vol] 323 mg/dL Normal 78-391 [facility] Comment on above: Performed By: #### WSR, B12, SERFOL, IRO N, FERR, SERIMM, HREMOP, SERMPA, SEPG, MMA #### [place] [address] IgG [Mass/Vol] 981 mg/dL Normal 717-1411 [facility] Comment on above: Performed By: #### WSR, B12, SERFOL, IRO N, FERR, SERIMM, HREMOP, SERMPA, SEPG, MMA #### [place] [address] IgM [Mass/Vol] 133 mg/dL Normal 53-334 [facility] Comment on above: Performed By: #### WSR, B12, SERFOL, IRO N, FERR, SERIMM, HREMOP, SERMPA, SEPG, MMA #### [place] [address] Iron and TIBCon 04-02-2019 Iron [Mass/Vol] 80 ug/dL Normal 41-186 [facility] Comment on above: Performed By: #### WSR, B12, SERFOL, IRO N, FERR, SERIMM, HREMOP, SERMPA, SEPG, MMA #### [place] [address] TIBC 247 ug/dL Normal 232-386 [facility] Comment on above: Performed By: #### WSR, B12, SERFOL, IRO N, FERR, SERIMM, HREMOP, SERMPA, SEPG, MMA #### [place] [phone] [place] [address] Transferrin Saturatn 32 % Normal 15-57 [facility] Comment on above: Performed By: #### WSR, B12, SERFOL, IRO N, FERR, SERIMM, HREMOP, SERMPA, SEPG, MMA #### [place] [address] LDon 04-02-2019 LD 131 U/L Low 135-225 [facility] Comment on above: Performed By: #### WSR, B12, SERFOL, IRO N, FERR, SERIMM, HREMOP, SERMPA, SEPG, MMA #### [place] [address] Methylmalonic Acidon 019 Methylmalonic Acid 232 nmol/L Normal 79-376 [facility] Comment on above: Result Comment: This test was developed and its performance characteristics determined by [facility]'s [facility] [place] ([facility]). It has not been cleared or approved by the FDA. [facility] is regulated under CLIA as qualified to perform high complexity testing. This test is used for clinical purposes. It should not be regarded as investigational or for research. Performed By: #### W SR, B12, SERFOL, IRON, FERR, SERIMM, HREMOP, SERMPA, SEPG, MMA ####[place] [phone] Monclnl Protein, Seron 04-02 K/L Ratio, Serum 1.88 High 0.26-1.65 [facility] Comment on above: Performed By: #### WSR, B12, SERFOL, IRO N, FERR, SERIMM, HREMOP, SERMPA, SEPG, MMA ####[facility]ClevelandBrian [place] [phone] [place], Free, Serum 47.1 mg/L High 3.30-19.40 [facility] Comment on above: Result Comment: Test performed by an imm unoturbidimetric assay on Optilite instrument from [facility]. Immunoglobulin free light chain assay results should be interpreted in conjunction with other tests and in correlation with clinical picture. Performed By: #### W SR, B12, SERFOL, IRON, FERR, SERIMM, HREMOP, SERMPA, SEPG, MMA ####[place] [address] AveClevelHannah [place] [phone] Lambda, Free, Serum 25.0 mg/L Normal 5.7-26.3 [facility] Comment on above: Result Comment: Test performed by an imm unoturbidimetric assay on Optilite instrument from [facility]. Immunoglobulin free light chain assay results should be interpreted in conjunction with other tests and in correlation with clinical picture. Performed By: #### W SR, B12, SERFOL, IRON, FERR, SERIMM, HREMOP, SERMPA, SEPG, MMA ####[place] [address] AveClevelHannah [place] [phone] MPA Serum IgA 336 mg/dL Normal 78-391 [facility] Comment on above: Performed By: #### WSR, B12, SERFOL, IRO N, FERR, SERIMM, HREMOP, SERMPA, SEPG, MMA ####[facility]ClevelandBrian [place] [phone] MPA Serum IgG 950 mg/dL Normal 717-1411 [facility] Comment on above: Performed By: #### WSR, B12, SERFOL, IRO N, FERR, SERIMM, HREMOP, SERMPA, SEPG, MMA ####[facility]ClevelandBrian [place] [phone] MPA Serum IgM 136 mg/dL Normal 53-334 [facility] Comment on above: Performed By: #### WSR, B12, SERFOL, IRO N, FERR, SERIMM, HREMOP, SERMPA, SEPG, MMA ####[place] [address] [place], [place] [phone] Protein [Mass/Vol] No M protein is identified. Normal No M protein is identified . [facility] Comment on above: Performed By: #### WSR, B12, SERFOL, IRO N, FERR, SERIMM, HREMOP, SERMPA, SEPG, MMA ####[place] [address] [place], [place] [phone] Staff Review Reviewed by Chadd Ackerman MD ([id number]) Normal [facility] Comment on above: Performed By: #### WSR, B12, SERFOL, IRO N, FERR, SERIMM, HREMOP, SERMPA, SEPG, MMA ####[place] [address] [place], [place] [phone] PROGRESSon 04-02-2019 PROGRESS HNO ID: [id number] Author: Thais Hebert Service: ? Author Type: Physician Type: Progress Notes Filed: 04/03/2019 1:15 PM Note Text: PATIENT NAME: Lisa Lugo REFERRING PHYSICIAN: Theron Mendoza MD ([facility]) [address] [place] [address] PRIMARY CARE PHYSICIAN: Theron Mendoza MD CHIEF [...] - CBC + DIFF (FOR REMOTE [facility] USE) - IRON + TIBC - FERRITIN [...] questions satisfactorily.. Francois Hebert D.O. Medical Oncologist [place], [place] Normal [facility] Protein Electrophor.on 04-02 Albumin [Mass/Vol] 3.79 g/dL Normal 3.37-4.23 [facility] Comment on above: Performed By: #### WSR, B12, SERFOL, IRO N, FERR, SERIMM, HREMOP, SERMPA, SEPG, MMA ####[facility] [place], [place] [phone] Alpha 1 Globulin 0.31 gm/dL Normal 0.18-0.31 [facility] Comment on above: Performed By: #### WSR, B12, SERFOL, IRO N, FERR, SERIMM, HREMOP, SERMPA, SEPG, MMA ####[place] [address] AveCBobby [place] [phone] Alpha 2 Globulin 0.96 gm/dL Normal 0.52-0.97 [facility] Comment on above: Performed By: #### WSR, B12, SERFOL, IRO N, FERR, SERIMM, HREMOP, SERMPA, SEPG, MMA ####[place] [address] AveCSarah [place] [address] Beta Globulin 1.17 gm/dL Normal 0.84-1.36 [facility] Comment on above: Performed By: #### WSR, B12, SERFOL, IRO N, FERR, SERIMM, HREMOP, SERMPA, SEPG, MMA ####[place] [address] AveCBobby [place] [phone] Gamma Globulin 0.97 gm/dL Normal 0.70-1.44 [facility] Comment on above: Performed By: #### WSR, B12, SERFOL, IRO N, FERR, SERIMM, HREMOP, SERMPA, SEPG, MMA ####[address]CBobby Ville [phone] Interpretation SEE COMMENT Normal [facility] Comment on above: Result Comment: No definitive M protein is identified on protein electrophoresis. Performed By: #### W SR, B12, SERFOL, IRON, FERR, SERIMM, HREMOP, SERMPA, SEPG, MMA ####[place] [address] [address] AveCHannah [place] [phone] M Guy Concentratn 0.00 gm/dL Normal 0.00 [facility] Comment on above: Performed By: #### WSR, B12, SERFOL, IRO N, FERR, SERIMM, HREMOP, SERMPA, SEPG, MMA ####[place] [address] AveCChign[place], [place] [phone] Protein [Mass/Vol] 7.2 g/dL Normal 6.0-8.4 [facility] Comment on above: Performed By: #### WSR, B12, SERFOL, IRO N, FERR, SERIMM, HREMOP, SERMPA, SEPG, MMA ####[place] [address]CCh[address], [place] [phone] Protein [Mass/Vol] N/A Normal [facility] Comment on above: Performed By: #### WSR, B12, SERFOL, IRO N, FERR, SERIMM, HREMOP, SERMPA, SEPG, MMA ####[place] [address], [place] [phone] SPE Staff Review Reviewed by Chadd Ackerman MD ([id number]) Normal [facility] Comment on above: Performed By: #### WSR, B12, SERFOL, IRO N, FERR, SERIMM, HREMOP, SERMPA, SEPG, MMA ####[place] [address]CCh[address], [place] [phone] Remote CBCDIF (for [facility] use o nly)on 04-02-2019 Abs Baso <0.03 Normal 0.00-0.10 [facility] Abs Burt 0.48 k/uL Normal 0.00-0.86 [facility] Abs Neut 4.30 k/uL Normal 1.45-7.50 [facility] Basophils/100 WBC (Bld) 0.2 % Normal [facility] Eosinophils (Bld) [#/Vol] 0.04 10*3/uL Normal 0.00-0.45 [facility] Eosinophils/100 WBC (Bld) 0.7 % Normal [facility] Erythrocyte distribution width (RBC) [Ratio] 13.9 % Normal 11.5-15.0 [facility] Hematocrit (Bld) [Volume fraction] 39.6 % Normal 39.0-51.0 [facility] Hemoglobin (Bld) [Mass/Vol] 12.6 g/dL Low 13.0-17.0 [facility] Lymphocytes (Bld) [#/Vol] 0.84 10*3/uL Low 1.00-4.00 [facility] Lymphocytes/100 WBC (Bld) 14.8 % Normal [facility] MCH (RBC) [Entitic mass] 27.4 pG Normal 26.0-34.0 [facility] MCHC (RBC) [Mass/Vol] 31.8 g/dL Normal 30.5-36.0 [facility] MCV (RBC) [Entitic vol] 86.1 fL Normal 80.0-100.0 [facility] Monocytes/100 WBC (Bld) 8.5 % Normal [facility] Neutrophils/100 WBC (Bld) 75.8 % Normal [facility] Platelet mean volume (Bld) [Entitic vol] 9.7 fL Normal 9.0-12.7 [facility] Platelets (Bld) [#/Vol] 243 10*3/uL Normal 150-400 [facility] RBC (Bld) [#/Vol] 4.60 10*6/uL Normal 4.20-6.00 [facility] WBC (Bld) [#/Vol] 5.67 10*3/uL Normal 3.70-11.00 [facility] Sed Rate Westergrenon 2018 Sed Rate Westergren 41 mm/hr High 0-15 [facility] Comment on above: Performed By: #### WSR, B12, SERFOL, IRO N, FERR, SERIMM, HREMOP, SERMPA, SEPG, MMA #### [facility] [address] [place], [place] [address] Vitamin B12on 04-02-2019 Cobalamin (Vitamin B12) [Mass/Vol] 595 pg/mL Normal 232-1245 [facility] Comment on above: Performed By: #### WSR, B12, SERFOL, IRO N, FERR, SERIMM, HREMOP, SERMPA, SEPG, MMA #### [facility] [address] [place], [place] [address] Cardiovascular Lab Reporton 04-26-2017 Cardiovascular Lab Report [facility] Patient Name: [facility] MR #: [id number] Physician: Jenny Parsons M.D.Medicine Service Date: 04/25/2017Division of Birthdate: 2Cardiology Room #: 3CD [id number] [facility].[place], [place] [address]Sxthy Fax Cardiovascular Laboratory ReportINDICATION: Mr. Lisa Lugo is a 66-year-old man, known to havecoronary artery disease status post multiple stenting procedures in [facility]. Recently, he presented with transient ST-segment elevation in thesetting of ongoing chest pain. He underwent cardiac catheterization anddrug-eluting stenting of the distal right coronary artery de rachel stenosisas well as drug-eluting stenting of the proximal right coronary arteryin-stent restenosis. At that time, he was found to have zvyw-npbuuib-kaeom restenosis in the mid LAD. He is [...] angiography was performedfollowed by upsizing to a 6-Canadian x 11 cm sheath. Heparin wasadministered intravenously and therapeutic ACT confirmed during theprocedure. A 6-Canadian XB 3.5 guiding catheter was advanced and [...] to the [place] wire.Angiography was performed. [place] 2.5 x 15 mm noncompliantballoon was then [...] 04/25/2017/09:47 A/Jenny Coppola M.D.Date Trans: 04/26/2017 02:28 A/mmoDN_JN:[id number]: Theron Mendoza D.O. [address] [place] [phone] Normal [facility] POC GLUCOSE LABon 04-26-2017 Glucose mass conc 99 mg/dL Normal 70-100 [facility] Comment on above: Performed By: #### [id number] ####[facility] [facility].[address] CBC COMPLETE BLOOD COUNTon 1 06-26-2016 Erythrocyte distribution width Auto Ratio (RBC) 14.3 % Normal 11.5-16.9 [facility] Comment on above: Order Comment: Yes: Add to Previous draw if able Performed By: #### 5 0608 ####[facility] Erythrocytes (RBC) 4.16 mill/mm3 Low 4.30-5.90 [facility] Comment on above: Order Comment: Yes: Add to Previous draw if able Performed By: #### 5 0608 ####[facility] Hematocrit (HCT) 34.8 % Low 39.0-55.0 [facility] Comment on above: Order Comment: Yes: Add to Previous draw if able Performed By: #### 5 0608 ####[facility] Hemoglobin mass conc (Bld) 11.8 g/dL Low 13.9-16.3 [facility] Comment on above: Order Comment: Yes: Add to Previous draw if able Performed By: #### 5 0608 ####[facility] [place] [address], [facility] MCH 28.2 pg Normal 24.0-32.0 [facility] Comment on above: Order Comment: Yes: Add to Previous draw if able Performed By: #### 5 0608 ####[facility] [place] [address], [facility] MCHC mass conc (RBC) 33.8 g/dL Normal 32.0-36.0 [facility] Comment on above: Order Comment: Yes: Add to Previous draw if able Performed By: #### 5 0608 ####[facility] [facility] [place] [address], [facility] MCV 83.6 fL Normal 80.0-100.0 [facility] Comment on above: Order Comment: Yes: Add to Previous draw if able Performed By: #### 5 0608 ####[facility] [place] [address], [facility] PLAT CNT 198 Thou/mm3 Normal 100-400 [facility] Comment on above: Order Comment: Yes: Add to Previous draw if able Performed By: #### 5 0608 ####[facility] [place], [place] [address]E.[place] [address], [facility] WBC (Leukocytes) 3.9 Thou/mm3 Low 4.0-10.0 [facility] Comment on above: Order Comment: Yes: Add to Previous draw if able Performed By: #### 5 0608 ####[facility] [place] [address], [facility] POC GLUCOSE LABon 04-25-2017 Glucose mass conc 232 mg/dL High 70-100 [facility] Comment on above: Performed By: #### [id number] ####[facility] [place] [address], [facility] Glucose mass conc 281 mg/dL High 70-100 [facility] Comment on above: Performed By: #### 147[address] ####[facility] Discharge Summaryon 04-20-20 Discharge Summary MR#: [id number] Admitted: 04/15/2017 [...] history, requiring stentingin the past, presented to [facility] initially with complaints ofrecurrent chest pain at rest. Initial EKG showed minor ST-segment elevationin the inferior leads, which resolved after administration of IV heparinand nitroglycerin. The patient [facility] angiography and intervention. Heunderwent left heart catheterization with successful balloon dilatation andstenting of 2 lesions. The patient recovered well postprocedure with nofurther recurrence of chest pain. Right femoral access site healed well.DISCHARGE CONDITION: Stable.DISCHARGE DISPOSITION: Home.DISCHARGE MEDICATIONS: Aspirin 81 mg daily, atenolol 25 mg daily, Qayzdgao730 mg daily, Clopidogrel 75 mg daily, Lantus [...] 04/19/2017/06:17 P/Arely Campos, MDDate Trans: 04/20/2017 07:36 A/mmoDN_JN:[id number]: Theron Mendoza D.O. [address] [place] [phone] Tino Gunderson M.D. [facility]5 [facility] [address] Normal [facility] BASIC METABOLIC PANELon 12- Calcium 9.0 mg/dL Normal 8.6-10.3 [facility] Comment on above: Order Comment: No: Do not add to previou s draw Performed By: #### 1 69, 07469 ####[facility] [place] [address], [facility] Chloride 104 mmol/L Normal 98-107 [facility] Comment on above: Order Comment: No: Do not add to previou s draw Performed By: #### 1 69, 44774 ####[facility] [place] [address], [facility] CO2 24 mmol/L Normal 21-31 [facility] Comment on above: Order Comment: No: Do not add to previou s draw Performed By: #### 1 0, 81301 ####[facility] [place] [address], [facility] Creatinine 0.94 mg/dL Normal 0.70-1.30 [facility] Comment on above: Order Comment: No: Do not add to previou s draw Performed By: #### 1 007, 45505 ####[facility] [place] [address], [facility] eGFR (black) mL/min/{1.73_m2} Normal >60 [facility] Comment on above: Order Comment: No: Do not add to previou s draw Performed By: #### 1 69, 94128 ####[facility] [place] [address], [facility] eGFR (non-black) mL/min/{1.73_m2} Normal >60 Th e [facility] Comment on above: Order Comment: No: Do not add to previou s draw Performed By: #### 1 69, 86688 ####[facility] [place] [address], [facility] Glucose mass conc 182 mg/dL High 70-100 [facility] Comment on above: Order Comment: No: Do not add to previou s draw Performed By: #### 1 69, 42126 ####[facility] [place] [address], [facility] Potassium molar conc 3.9 mmol/L Normal 3.5-5.1 [facility] Comment on above: Order Comment: No: Do not add to previou s draw Performed By: #### 1 69, 24124 ####[facility] [place] [address], [facility] Sodium 138 mmol/L Normal 136-145 [facility] Comment on above: Order Comment: No: Do not add to previou s draw Performed By: #### 1 69, 23721 ####[facility] [place] [address], [facility] Urea nitrogen 18 mg/dL Normal 7-25 [facility] Comment on above: Order Comment: No: Do not add to previou s draw Performed By: #### 1 69, 55653 ####[facility] CBC COMPLETE BLOOD COUNTon 1 06-17-2016 Erythrocyte distribution width Auto Ratio (RBC) 14.7 % Normal 11.5-16.9 [facility] Comment on above: Order Comment: No: Do not add to previou s draw Performed By: #### 5 0608 ####[facility] Erythrocytes (RBC) 4.37 mill/mm3 Normal 4.30-5.90 [facility] Comment on above: Order Comment: No: Do not add to previou s draw Performed By: #### 5 0608 ####[facility] Hematocrit (HCT) 36.5 % Low 39.0-55.0 [facility] Comment on above: Order Comment: No: Do not add to previou s draw Performed By: #### 5 0608 ####[facility] Hemoglobin mass conc (Bld) 12.3 g/dL Low 13.9-16.3 [facility] Comment on above: Order Comment: No: Do not add to previou s draw Performed By: #### 5 0608 ####[facility] MCH 28.0 pg Normal 24.0-32.0 [facility] Comment on above: Order Comment: No: Do not add to previou s draw Performed By: #### 5 0608 ####[facility] MCHC mass conc (RBC) 33.5 g/dL Normal 32.0-36.0 [facility] [facility] Comment on above: Order Comment: No: Do not add to previou s draw Performed By: #### 5 [id number] ####[facility] MCV 83.5 fL Normal 80.0-100.0 [facility] Comment on above: Order Comment: No: Do not add to previou s draw Performed By: #### 5 [id number] ####[address] PLAT CNT 167 Thou/mm3 Normal 100-400 [facility] Comment on above: Order Comment: No: Do not add to previou s draw Performed By: #### 5 [id number] ####[address] WBC (Leukocytes) 4.7 Thou/mm3 Normal 4.0-10.0 [facility] Comment on above: Order Comment: No: Do not add to previou s draw Performed By: #### 5 [id number] ####[address] Cardiovascular Lab Reporton 04-16-2017 Cardiovascular Lab Report [facility] Patient Name: Lisa Lugo [facility] MR #: [id number] Physician: eJnny Parsons M.D.Medicine Service Date: 04/15/2017Division of Birthdate: 2Cardiology Room #: 3AB [id number] CardiovascularServices[place] [address]Phone Fax Cardiovascular Laboratory ReportINDICATION: Lisa Lugo is a 66-year-old man, known to have coronaryartery disease, status post multiple stenting procedures in the past, [facility] with recurrent chest pain at rest. Heinitially had minor ST elevations in the inferior leads that resolved afteradministration of intravenous heparin and nitroglycerin. Because ofrecurrent chest pain, he was transferred emergently to our foundry laborer coreroom fordiagnostic angiography and intervention.PROCEDURE:1. Bilateral selective coronary [...] EMS services. He was placed on the foundry laborer coreroom table.Both groin areas were prepped and draped in usual fashion. Usingmicropuncture technique, access in the right common femoral artery wasobtained and the inner cannula was advanced. Limited femoral angiographywas performed followed by upsizing to a 6-Canadian x 11 cm sheath. Bilateralselective coronary angiography was then performed using 6-Canadian JL4 andJR4 diagnostic catheters.Heparin was administered intravenously and therapeutic ACT confirmed duringthe procedure. A 6-Canadian JR4 guiding catheter was advanced and used toengage the right coronary ostium. A optionsXpresswater wire was advanced into thedistal RCA. Balloon dilatation in the distal RCA was performed usingEmerge 2.0 x 12 mm balloon and inflated at 12 atmospheres. Angiographyrevealed suboptimal results. This was treated using a PROMUS Premier 2.5 x16 mm drug-eluting stent, deployed at 11 atmospheres and post dilated usingNC Quantum [place] 2.5 x 8 mm noncompliant balloon inflated [...] in-stent restenosis was performed using NC [employer] [place] 3.0 x8 mm noncompliant balloon inflated at 14 atmospheres followed by additionaldilatation using NC Quantum [place] 3.0 x 12 mm noncompliant balloon inflatedat [...] 14atmospheres and post dilated using NC Quantum [place] 3.25 x 20 mmnoncompliant balloon inflated at 20 atmospheres throughout the length ofthe stent. Final angiography after administration of intracoronarynitroglycerin showed excellent result with reduction of the stenosis to 0%.No evidence of dissection or perforation. The guiding catheter wasremoved. The procedure was concluded. The right femoral arteriotomy wasmanaged with a 6-Canadian Perclose device with good hemostasis. The patientwas [...] 04/15/2017/06:14 P/Jenny Coppola M.D.Date Trans: 04/16/2017 07:04 A/[id number]: Theron Mendoza D.O. [address] [place] [address] A [facility] [id number] Tino Gunderson M.D. [address] [place] [address] Normal [facility] MAGNESIUM BLOODon 04-16-2017 Magnesium 1.9 mg/dL Normal 1.9-2.7 [facility] Comment on above: Order Comment: No: Do not add to previou s draw Performed By: #### 1 [id number], [id number] ####[facility] [place] [address], [facility] POC GLUCOSE LABon 04-16-2017 Glucose mass conc 173 mg/dL High 70-100 [facility] Comment on above: Performed By: #### [id number] ####[facility] [place] [address], [facility] Glucose mass conc 228 mg/dL High 70-100 [facility] Comment on above: Performed By: #### [id number] ####[facility] [place] [address], [facility] POC GLUCOSE LABon 04-15-2017 Glucose mass conc 214 mg/dL High 70-100 [facility] Comment on above: Performed By: #### [id number] ####[facility] [place] [address], [facility] Vital Signs Date Time Vital Sign Value Performing Clinician Facility 12-18-2023 13:53-0400 Blood Pressure Location Chadd BARBOUR [facility] 12-18-2023 13:53-0400 Diastolic blood pressure 74 mm[Hg] Chadd BARBOUR [facility] 12-18-2023 13:53-0400 Heart rate 70 /min Chadd GUERRAL [facility] 12-18-2023 13:53-0400 Respiratory rate 16 /min Chadd GUERRAL [facility] 12-18-2023 13:53-0400 Systolic blood pressure 126 mm[Hg] Chadd GUERRAL [facility] 11-05-2023 13:43-0400 Body height 177.8 cm [facility] 11-05-2023 13:43-0400 Body mass index (BMI) [Ratio] 25.7 kg/m2 [facility] 11-05-2023 13:43-0400 Body weight 81.24 kg [facility] 11-05-2023 13:43-0400 Diastolic blood pressure 71 mm[Hg] [facility] 11-05-2023 13:43-0400 Heart rate 71 /min [facility] 11-05-2023 13:43-0400 Respiratory rate 12 /min [facility] 11-05-2023 13:43-0400 Systolic blood pressure 121 mm[Hg] [facility] 10-01-2023 12:35-0400 Blood Pressure Location DOMINGA PRESLEY [facility] 10-01-2023 12:35-0400 Diastolic blood pressure 78 mm[Hg] DOMINGA SAKINA [facility] 10-01-2023 12:35-0400 Heart rate 72 /min DOMINGA SAKINA [facility] 10-01-2023 12:35-0400 Respiratory rate 16 /min DOMINGA SAKINA [facility] 10-01-2023 12:35-0400 Systolic blood pressure 137 mm[Hg] DOMINGA PRESLEY [facility] 04-02-2023 09:30-0500 Body height 177.8 cm Theron Ball Other [employer] Other 04-02-2023 09:30-0500 Body mass index (BMI) [Ratio] 25.97 kg/m2 Theron Ball Other [employer] Other 04-02-2023 09:30-0500 Body weight 82.1 kg Theron Ball Other [employer] Other 04-02-2023 09:30-0500 Diastolic blood pressure 85 mm[Hg] Theron Ball Other [employer] Other 04-02-2023 09:30-0500 Respiratory rate 12 /min Theron Ball Other [employer] Other 04-02-2023 09:30-0500 Systolic blood pressure 135 mm[Hg] Theron Ball Other [employer] Other 11-01-2022 10:00-0400 Body height 177.8 cm Theron Ball Other [employer] Other 11-01-2022 10:00-0400 Body mass index (BMI) [Ratio] 25.77 kg/m2 Theron Ball Other [employer] Other 11-01-2022 10:00-0400 Body weight 81.47 kg Theron Ball Other [employer] Other 11-01-2022 10:00-0400 Diastolic blood pressure 71 mm[Hg] Theron Ball Other [employer] Other 11-01-2022 10:00-0400 Respiratory rate 12 /min Theron Ball Other [employer] Other 11-01-2022 10:00-0400 Systolic blood pressure 124 mm[Hg] Theron Ball Other [employer] Other 10-03-2022 13:45-0400 Body height 177.8 cm Theron Ball Other [employer] Other 10-03-2022 13:45-0400 Body mass index (BMI) [Ratio] 26.23 kg/m2 Theron Ball Other [employer] Other 10-03-2022 13:45-0400 Body weight 82.92 kg Theron Ball Other [employer] Other 10-03-2022 13:45-0400 Diastolic blood pressure 76 mm[Hg] Theron Ball Other [employer] Other 10-03-2022 13:45-0400 Respiratory rate 12 /min Theron Ball Other [employer] Other 10-03-2022 13:45-0400 Systolic blood pressure 160 mm[Hg] Theron Ball Other [employer] Other 11-20-2021 12:31-0400 Blood Pressure Location Tom ARGUETA [facility] 11-20-2021 12:31-0400 Diastolic blood pressure 80 mm[Hg] Tom ARGUETA [facility] 11-20-2021 12:31-0400 Heart rate 74 /min Tom ARGUETA [facility] [place] 11-20-2021 12:31-0400 Respiratory rate 16 /min Tom LIZABETH [facility] [place] 11-20-2021 12:31-0400 Systolic blood pressure 133 mm[Hg] Tom [facility]ETA [facility] En[facility]ters Encounter Date Encounter Type Care Provider Facility Start: 01-08-2024 ambulatory Chadd BARBOUR Facility : [facility] Start: 01-06-2024 End: 01-06-2024 ambulatory Natali Weir MD Facility: [place] Start: 01-01-2024 End: 01-01-2024 ambulatory Chadd BARBOUR Facility:CD:[id number] Start: 12-18-2023 End: 12-18-2023 ambulatory Chadd BARBOUR Facility: [place] Start: 12-18-2023 End: 12-18-2023 [facility] Start: 12-16-2023 End: 12-16-2023 ambulatory Natali Weir MD Facility: [place] Start: 12-02-2023 End: 12-02-2023 ambulatory Natali Weir MD Facility: [facility] Start: 11-18-2023 End: 11-18-2023 ambulatory Natali Weir MD Facility:[facility] [place] Start: 11-05-2023 End: 11-05-2023 ambulatory [facility] Work Phone: Start: 11-05-2023 End: 11-05-2023 Patient encounter procedure [facility] Work Phone: Start: 11-05-2023 Non-patient / [facility]-visit [facility] Work Phone: Start: 10-01-2023 End: 10-01-2023 ambulatory DOMINGAJEANNETTE PRESLEY Facility:[facility] Start: 10-01-2023 End: 10-01-2023 Patient encounter procedure DOMINGA PRESLEY [facility] Start: 09-17-2023 Non-patient / Non-visit [facility] Work Phone: Start: 04-03-2023 End: 04-03-2023 ambulatory Theron Ball Other [employer] Other Start: 04-03-2023 Telephone encounter Theron Ball [facility] Start: 04-02-2023 End: 04-02-2023 ambulatory Theron Ball Other [employer] Other Start: 04-02-2023 Office outpatient vi sit 25 minutes Theron Ball [facility] Start: 04-01-2023 End: 04-01-2023 ambulatory Theron Ball Other [employer] Other Start: 04-01-2023 Telephone encounter Theron Ball [facility] Start: 01-07-2023 End: 01-07-2023 ambulatory Theron Ball Other [employer] Other Start: 01-07-2023 Telephone encounter Theron Ball [facility] Start: 11-01-2022 End: 11-01-2022 ambulatory Theron Ball Other [employer] Other Start: 11-01-2022 Patient encounter procedure Theron Ball [facility] Start: 10-03-2022 End: 10-03-2022 ambulatory Theron Ball Other [employer] Other Start: 10-03-2022 Office outpatient vi sit 15 minutes Theron Mendoza [facility] Start: 10-03-2022 Telephone encounter Theron Matt [facility] Start: 04-30-[address] THERON MENDOZA Facili ty:[facility] Start: 03-29-2022 End: 03-30-[address] THERON MENDOZA Facility:[facility] Start: 11-25-2021 End: 11-26-[address] THERON MENDOZA Facility:[facility] Start: 11-24-2021 End: 11-25-[address] THERON MENDOZA Facility:[facility] Start: 11-22-2021 Adult health examination Theron Matt Other [employer] Other Start: 11-20-2021 End: 11-20-2021 Patient encounter procedure Tom ARGUETA [facility] Start: 09-14-2021 End: 09-15-[address] THERON MEDNOZA Facility:[facility] Start: 09-10-2017 End: 09-11-2017 Ambulatory DEFAULT PHYSICIAN Facility:[facility] Start: 04-25-2017 End: 04-26-2017 Ambulatory PROVIDER UNKNOWN Facility:[facility] Start: 04-15-2017 End: 04-16-2017 Evaluation and management of inpatient THERON MENDOZA Facility:[facility] Procedures Date Procedure Procedure Detail [...] Facility:[facility] XR Lumbar spine Views [facility] XR Pelvis 1 or 2 Views [facility] Immunizations Immunization Date Immunization Notes Care Provider Kaden rueda 04-03-2022 influenza virus vaccine, split virus (incl. purified surface antigen) Therno Mendoza Other [employer] Other 04-03-2022 influenza virus vaccine, unspecified formulation [facility] 04-03-2022 Prevnar 20 Theron Mendoza Other [facility] 03-28-2021 influenza virus vaccine, split virus (incl. purified surface antigen) Theron Mendoza Other [employer] Other 03-28-2021 influenza virus vaccine, unspecified formulation DOMINGA PRESLEY [facility] 04-03-2018 diphtheria, tetanus toxoids and acellular pertussis vaccine, unspecified formulation Theron Matt Other [facility] pneumococcal Conjuga te, unspecified formulation; Translations: [Need for prophylactic vaccination against Streptococcus pneumoniae (pneumococcus)] Theron Mendoza Other [employer] Other Payers Date Payer Category Payer Private Health Insurance 2016 Unknown 1958 Medicare [id number] 1959 Private Health Insurance [id number] 1959 Self-pay [id number] 1950 Unknown [id number] 2.16.84 [id number] 1950 Unknown [id number] 2.16.84 [id number] 1951 Unknown [id number] 2.16.84 [id number] 1951 Unknown [id number] 2.16.84 0.1.256723.3.579.2.593 1951 Unknown [id number] 2.16.84 0.1.757295.3.579.2.593 1951 Unknown [id number] 2.16.8 40.1.336823.3.579.2.727 1950 Unknown [id number] 2.16.8 40.1.746587.3.579.2.727 1951 Unknown [id number] 2.16.8 40.1.062790.3.579.2.727 1951 Unknown [id number] 2.16.8 40.1.063376.3.579.2.727 1951 Unknown [id number] 2.16.8 40.1.830781.3.579.2.727 1951 Unknown [id number] 2.16. 840.1.239601.3.579.2.196 1951 Unknown [id number] 2.16. 840.1.375640.3.579.2.196 1950 Unknown [id number] 2.16. [id number] 1950 Unknown [id number] 2.16. [id number] Medicare [id number] Social History Date Type Detail Facility Start: 04-10-2021 End: 12-18-2023 Tobacco smoking status Ex-smoker (finding) [facility] Sex Assigned At Male [facility] Tobacco smoking status Never [facility] Start: 11-05-[address] [facility] Never smoked tobacco (finding) [facility] Start: 1950 Sex Assigned At Male [facility] Medical Equipment Procedure Code Equipment Code Equipment Origin al Text Equipment Identifier Dates BD Pen Needle Sh ort U/F 31G X 8 MM Start: 01-07-2023 Functional Status Date Assessment Result Facility 12-18-2023 Functional Status N/A [facility] [place] 10-01-2023 Functional Status N/A [facility] 11-20-2021 Functional Status N/A [facility] Clinical Notes 11-20-2021 to 12-18-2023 Note [...] Daily pioglitazone 1 (more content not included)... [facility] Comment on above: Result [...] urethra. Follow these instructions at home: Take eewy-uda-jfbxvry and prescription medicines only as told by [...] provider. Document Revised: 11/01/2021 Document Reviewed: 11/01/2021 [employer] Patient Education 2022 [employer]. Follow Up Care 09/17/2022 11:39:15 With:DOMINGA PRESLEY PA-C, URL Address: [address] [place] [place] [address] When: Unknown [facility] [place] 04-02-2023 Evaluation note Encounter Date Diagnosis Assessment [...] risk for cerebrovascular and cardiovascular disease. Mar, group home (current) use of insulin (ICD-10 - Z79.4) [...] dyspnea, CP or lightheadedness _update office tomorrow [employer] Other 12-04-2023 Evaluation note* Encounter Date Diagnosis Assessment Notes Treatment Notes Treatment Clinical Notes Mar, Primary hypertension (ICD-10 - I10) Mar, Type 2 diabetes mellitus with hyperglycemia (ICD-10 - E11.65) Mar, Mixed hyperlipidemia (ICD-10 - E78.2) Mar, ASHD (arteriosclerotic heart disease) (ICD-10 - I25.10) Mar, High risk medication use (ICD-10 - Z79.899) [employer] Other 09-11-2023 Evaluation note* Encounter Date Diagnosis Assessment Notes Treatment Notes Treatment Clinical Notes Dec, Type 2 diabetes mellitus with hyperglycemia (ICD-10 - E11.65) [employer] Other 07-06-2023 Evaluation note* Encounter Date Diagnosis [...] risk for cerebrovascular and cardiovascular disease. 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 They are also encouraged to continue exercise to achieve/maintain a normal BMI. Oct, Screening PSA (prostate specific antigen) (ICD-10 - Z12.5) Completed w/ , normal [employer] Other 06-07-2023 Evaluation note* Encounter Date Diagnosis [...] to achieve/maintain a normal BMI. Avoid NSAIDs [employer] Other 07-25-2022 Hospital Discharge instructions Patient Education [...] Follow these instructions at home: Medicines Take kbco-bap-lkpdbez and prescription medicines only as told by [...] or the blood stops without treatment. Take jxmm-cak-obuxyfe and prescription medicines only as told by your health care provider. Drink enough fluid to keep your urine clear or pale yellow. This information is not intended to replace advice given to you by your health care provider. Make sure you discuss any questions you have with your health care provider. Document Released: 04/15/2006 Document Revised: 09/09/2019 Document Reviewed: 05/18/2017 [employer] Patient Education 2020 [employer]. Follow Up Care 09/21/2021 10:23:43 With:Tom ARGUETA MD, URL Address: [facility] [address], [place] [address]- [phone] When: Unknown [facility] evaluation + Plan note Future Appointments Appointment Date:11/28/2021 08:45:00 AM Scheduled Provider: Location:[facility] Appointment Type:Urology CALL PAT FT Appointment Date:12/12/2021 10:30:00 AM Scheduled Provider: Location:[facility] Appointment Type:Urology FT Appointment Date:04/13/2022 10:45:00 AM Scheduled Provider:Tom ARGUETA MD Location:[facility] Appointment Type:URO Office Visit [facility] evaluation + Plan note Future Appointments Appointment Date:10/02/2024 10:15:00 AM Scheduled Provider:Tom ARGUETA MD Location:[facility] Appointment Type:URO Office Visit Diagnostic Tests Pending * PSA Total 10/01/23 [facility] evaluation + Plan note Future Appointments Appointment Date:10/02/2024 10:15:00 AM Scheduled Provider:Tom ARGUETA MD Location:[facility] Appointment Type:URO Office Visit [facility] Evaluation noteNo InformationNort [employer] Other Evaluation note* Diagnosis Onset Date Resolution Status Anemia acute ASHD (arteriosclerotic heart disease) acute GERD (gastroesophageal reflux disease) acute Hypercholesterolemia acute Hypertension acute Type 2 diabetes mellitus with hyperglycemia acute Medicare annual wellness visit, subsequent noneactive Screening for colon cancer n oneactive [facility] Work Phone: History general Narrative - Reported* Type Description Date Medical History ASHD Medical History HTN Medical History Hyperlipidemia Medical History T2DM Medical History GERD Surgical History ANGIOPLASTY Surgical History [facility] PCI/stent RCA and LAD 2006 Surgical History [facility] PCI/stent RCA 2016 Surgical History [facility] PCI/stent OM and LCx 2016 Surgical History [facility] PCI/stent RCA x 2 2017 Surgical History [facility] PCI/stent LAD 2017 Surgical History TURP, TRUS/bx 2009 Surgical History Arthroscopy right knee 2005, 20 14 Surgical History Arthroscopy left knee 2003 Hospitalization History see surgical history [employer] Other Hospital course Narrative No data available for this section [facility] Hospital Discharge instructions No data available for this section [facility] [employer] Progress note No data available for this section [facility] reason for referral (narrative)* Reason Referral for interna l derangement right knee Diagnosis 1 Internal derangement of right knee (M23.91) Referral Organization [facility] Margy durant Referring Provider First Name [...] Notes MRI right knee to be included [employer] Other Summary Purpose Family History No Family [...] DATE CREATED AUTHOR 10/16/[address] [facility] DATE CREATED AUTHOR AUTHOR'S ORGANIZ ATION 04/04/2019 [facility] DATE CREATED AUTHOR AUTHOR'S ORGANIZ ATION 04/30/2022 [facility] DATE CREATED AUTHOR AUTHOR'S ORGANIZ ATION 01/08/2024 [facility] DATE CREATED AUTHOR AUTHOR'S ORGANIZ ATION 01/12/2024 [facility] Care Team (unrecognized sect ion and content) [...] BE BASED ON THE PRIMARY CLINICAL RECORDS. [facility] [employer] [facility]. provides no warranty or guarantee of the accuracy or completeness of information in this document.
[2024-03-23 10:41] VITALS: BP 134/81; PULSE 66; TEMP 36.8; O2SAT 98
[2024-03-23 10:43] LABS: Glucometer 300 mg/dL (74-106)
[2024-03-23 11:16] VITALS: BP 163/77; BP 174/79; PULSE 70; O2SAT 98
--- NOTE | 2024-03-23 11:16 | W.PM.PROCNOT ---
Date of procedure: 03/23/24 Pre-op diagnosis: Pain due to lumbar spondylosis without myelopathy Post-op diagnosis: same as pre-op Procedure: Procedure: Bilateral L4-5, L5-S1 medial branch block Medications: Bupivacaine 0.25% 6cc The patient was seen and examined in the preoperative holding area.? An informed consent was obtained and placed on the chart.? The patient was brought to the medical procedure unit and placed in the prone position.? A timeout was completed verifying correct patient, procedure site, positioning, plan, and special equipment.? Using aseptic technique, the needle was placed at left L4. Under direct fluoroscopic visualization a Quincke-tipped spinal needle was advanced to the junction of the superior articulating process with the transverse process at the designated medial branch segment.? Preceded by negative aspiration, the above-mentioned injectate was placed in 1 mL aliquots.? The procedure was repeated at left L5, S1.? The needle was removed and insertion site was covered. The same procedure, at the same levels, was completed on the right side. The patient was taken to the postprocedural recovery area and monitored for an appropriate length of time before found suitable for discharge in the company of a responsible adult. Anesthesia: Local Surgeon: Natali Weir Pathology: none sent Condition: stable Disposition: no change
[2024-03-23] MEDS: LIDOCAINE HCL 2% 400 MG/20 ML MDV INJ (11:18)
[2024-03-23] MEDS: BUPIVACAINE HCL 0.25% PF 25 MG/10 ML VIAL 8 ML INJ (11:18)
== END 2024-03-23 11:19 | disposition home or self-care (01) ==
LOC: SURGOUT 10:06
PROVIDERS: PCP Internal Medicine; Visit Provider Anesthesiology
DX: M47.816 Spondylosis without myelopathy or radiculopathy, lumbar region (principal); E11.9 Type 2 diabetes mellitus without complications
CPT/HCPCS: 36415; 64635; 64636; 82948; J0665

== ENCOUNTER 2024-04-02 09:59 | Outpatient (OUT) | payer MEDICARE, OTHER, SELFPAY ==
--- OUTSIDE RECORDS SUMMARY | 2024-04-02 10:06 | XMS_ITS | CCD ---
Author Organization [facility] Care Team Providers Care Desk Officer Name Role Phone THERON MENDOZA Unavailable Unavailable TINO GUNDERSON Unavailable Unavailable RACHELL, [place] GREGORIO Unavailable Unavailable RACHELL, [place] AM Unavailable Unavailable [place] Unavailable Unavailable UNKNOWN, PROVIDER Unavailable Unavailable UNKNOWN, [...] Attending Unavailable ARGUETA, Tom Cohen Attending Unavailable Gieditis , Natali Luo Attending Unavailable Giedmackenzie NUÑEZ, Andrius Vmurphy Attending Unavailable Gijojo NUÑEZ, Andrius Vytlisa Attending Unavailable Giedmackenzie NUÑEZ, Andrius Vytautas Attending Unavailable Gieditis , Andrius Vytlisa Attending Unavailable Allergies Allergy Classification Reported Allergen(s) Allergy Type Date of Onset Reaction(s) Facility (1 source) 71615,00; Translations: [31506,00] Propensity to adverse reactions (disorder) 9 [facility] Repository (12 sources) metFORMIN; Translations: [metFORMIN] Drug Allergy diarrhea, Unknown [facility] Repository (3 sources) patient allergy list reviewed by nurse or physicia Propensity to adverse reactions Comment:Done [email or web address] Other (1 source) No Known Medication Allergies; Translations: [No Known Medication Allergies] Propensity to adverse reactions (disorder) [facility] Repository Medications Current Medications Medication Drug [...] disease (20 sources) Atherosclerotic heart disease of [place] coronary artery with unstable angina pectoris; Translations: [Atherosclerotic heart disease of [place] coronary artery without angina pectoris] Onset: 08-25-2013 [...] Onset: 09-18-2013 Chronic Other aftercare (6 sources) care home (current) use of insulin; Translations: [care home (current) use of antithrombotics/antip latelets] Onset: 04-15-2017 Episodic Other aftercare (8 sources) Long-term current use of insulin; Translations: [intermediate manager (current) use of insulin] Episodic Other aftercare (1 source) Other fpc (current) drug therapy Episodic Other gastrointestinal disorders [...] NUÑEZ, Tom Cohen Where: [facility] [address] [address]- Medications What How Much When Instructions Unchanged [...] us for your care. Normal [facility] Cholesterol in LDL Calc [Mas s/Vol]on 11-05-2023 Cholesterol in LDL [Mass/Vol] 42.0 mg/dL [facility] Comment on above: <100 mg/dl [id number] mg/dl NEAR OR ABOVE [id number] mg/dl BORDERLINE [id number] mg/dl HIGH>190 mg/dl VERY HIGH Cholesterol in VLDL Calc [Ma ss/Vol]on 11-05-2023 Cholesterol in VLDL [Mass/Vol] 35.6 mg/dL [facility] Estimated glomerular filtrat ion rate (GFR) non- Americanon 11-05-2023 GFR/1.73 sq M.predicted among non-blacks MDRD (S/P/Bld) [Vol rate/Area] mL/min/{1.73_m2} >=60 [facility] Globulin Calc (S) [Mass/Vol] on 11-05-2023 Globulin (S) [Mass/Vol] 3.3 g/dL [facility] Glucose mean value [Mass/vol ume] in Blood Estimated from glycated hemoglobinon 11-05-2023 Average glucose Estimated from glycated hemoglobin (Bld) [Mass/Vol] 143 mg/dL [facility] Laboratory - Chemistry and C hemistry - challengeon 11-05-2023 Albumin [Mass/Vol] 4.0 g/dL 3.4-5.0 [facility] ALP [Catalytic activity/Vol] 74 U/L 46-116 [facility] ALT [Catalytic activity/Vol] 48 U/L 16-63 [facility] AST [Catalytic activity/Vol] 34 U/L 15-37 [facility] Bilirubin [Mass/Vol] 0.9 mg/dL 0.2-1.0 [facility] Calcium [Mass/Vol] 8.6 mg/dL 8.5-10.1 [facility] Chloride [Moles/Vol] 103 mmol/L 98-107 [facility] Cholesterol [Mass/Vol] 119 mg/dL <=200 [facility] Cholesterol in HDL [Mass/Vol] 42 mg/dL 40-60 [facility] Comment on above: > or =60 mg/dl - LOW CARDIOVASCULAR RISK <40 mg/dl - HIGH CARDIOVASCULAR RISK CO2 [Moles/Vol] 28.3 mmol/L 21.0-32.0 [facility] Creatinine [Mass/Vol] 1.10 mg/dL 0.70-1.30 [facility] GFR/1.73 sq M.predicted MDRD (S/P/Bld) [Vol rate/Area] mL/min/{1.73_m2} >=60 [facility] Glucose [Mass/Vol] 139 mg/dL High 74-106 [facility] Potassium [Moles/Vol] 4.1 mmol/L 3.5-5.1 [facility] Protein [Mass/Vol] 7.3 g/dL 6.4-8.2 [facility] Sodium [Moles/Vol] 141 mmol/L 136-145 [facility] Triglyceride [Mass/Vol] 178 mg/dL High <=150 [facility] Urea nitrogen [Mass/Vol] 21.0 mg/dL High 7.0-18.0 [facility] Urea nitrogen/Creatin ine [Mass ratio] 19.1 mg/mg [facility] Laboratory - Hematology and Cell countson 11-05-2023 HbA1c (Bld) [Mass fraction] 6.6 % High 4.5-6.2 [facility] Comment on above: ADA RECOMMENDED LIMIT 4.0 - 6.0ADA THERA PEUTIC TARGET < 7.0ACTION SUGGESTED> 7.0 Microalbumin [Mass/volume] i n Urineon 11-05-2023 Albumin DL <= 20 mg/L (U) [Mass/Vol] 3.4 mg/dL <=30.0 [facility] Serum or plasma albumin/glob ulin mass ratioon 11-05-2023 Albumin/Globulin [Mass ratio] 1.2 {ratio} [facility] Serum or plasma anion gap de terminationon 11-05-2023 Anion gap [Moles/Vol] 13.8 mmol/L [facility] Serum or plasma total choles terol/high density lipoprotein (HDL) cholesterol mass aquiles 11-05-2023 Cholesterol.tota l/Cholesterol in HDL [Mass ratio] 2.8 {ratio} [facility] Comment on above: 3.3 - 4.4 LOW RISK4.4 - 7.1 AVERAGE RISK 7.1 - 11.0 MODERATE RISK>11.0 HIGH RISK Screenson 10-02-2023 Screens [id number] Normal [facility] Screens [id number] Normal [facility] Ambulatory Visit Summaryon 0 10-01-2023 Ambulatory [...] NUÑEZ, Tom Cohen Where: [facility] Patient Educationon 10-01-19 Patient Education Urology Benign [...] Follow these instructions at home: ? Take cqhy-xhl-bmwlioz and prescription medicines only as told by [...] (more content not included)... Normal [facility] Urology Office/Clinic Noteon 10-01-2023 Urology Office/Clinic [...] Contact Information SAKINA RANDALL, DOMINGA Multani, URL [address] [place] [address] Additional Instructions: 1 yr PSA Patient Education Benign Prostatic Hyperplasia Documentation recorded by the scribe Trish Marcus accurately reflects the services(s) I performed [...] (more content not included)... Normal [facility] Comment on above: Result Comment: Electronically Signed By : DOMINGA PRESLEY PA-C\.br\Date and Time Signed: 10/01/23 13:08 EDT\.br\Electronically Co-Signed By: Trish Marcus\.br\Date and Time Co-Signed: 10/01/23 13:03 EDT Lab Reportson 09-18-2023 Lab Reports [id number] [facility] RAD - Ultrasound Reporton RAD - Ultrasound Report [id number] Normal [facility] No Panel Informationon 09-16 Free Prostate Specific Antigen 0.78 ng/mL N/A [facility] Comment on above: Augustina ECLIA methodology. Prostate Specific Antigen Total 1.9 ng/mL 0.0-4.0 [facility] Comment on above: Augustina ECLIA methodology.According to the [place] [employer], Serum PSAshould decrease and remain [...] PSA/Total PSA [Mass fraction] 41.1 % . [facility] Comment on above: The table below lists [...] any other population of men.Performed at: - Lab[address] [id number] Director: Guanakito Cota PhD, Phone: [phone] Reminderson 08-22-2023 Reminders - From: Sade Kilgore [...] appt. LM on VM informing pt that [facility] will be reaching out to get MINESH scheduled. Appt 09/20/23 to review results. Order & demo's faxed to the [facility] CS. MINESH scheduled 09/17/23 @ [facility] Normal [facility] GLYCOHEMOGLOBIN A1Con 2021 ADA RECOMMENDATION SEE BELOW Normal [facility] Comment on above: Result Comment: ADA RECOMMENDED LIMIT 4. 0 - 6.0 ADA THERAPEUTIC TARGET < 7.0 ACTION SUGGESTED > 7.0 Performed By: #### A 1C #### [facility] [address] [place], [place] [address] Dr. Yara Chavez Glucose [Mass/Vol] 166 mg/dL Normal [facility] Comment on above: Performed By: #### A1C #### [facility] [address] [place], [place] [address] Dr. Yara Chavez HbA1c (Bld) [Mass fraction] 7.4 % Critically high 4.5-6.2 [facility] Comment on above: Performed By: #### A1C #### [facility] [address] [place], [place] [address] ABD/PELV W CONon [...] PARAS SOMMERS Date: 2021-11-26 02:01 Normal [facility] CBC AUTO DIFFon 11-24-2021 BASO # 0.0 103/ul Normal 0.0-0.1 [facility] Comment on above: Performed By: #### CBC #### [facility] [address] [place] [address] Dr. Yara Chavez Basophils/100 WBC (Bld) 0.7 % Normal 0.2-2.0 [facility] Comment on above: Performed By: #### CBC #### [facility] [address] [place] [address] Dr. Yara Chavez EO # 0.0 103/ul Normal 0.0-0.7 [facility] Comment on above: Performed By: #### CBC #### [facility] [address] [place] [address] [address] Yara Chavez Eosinophils/100 WBC (Bld) 1.0 % Normal 0.9-7.0 [facility] Comment on above: Performed By: #### CBC #### [facility] [address] [place] [address] [address] Yara Chavez Erythrocyte distribution width (RBC) [Ratio] 14.7 % Normal 11.0-15.0 [facility] Comment on above: Performed By: #### CBC #### [facility] [address] [place] [address] Dr. Yara Chavez Hematocrit (Bld) [Volume fraction] 38.7 % Critically low 42.0-54.0 [facility] Comment on above: Performed By: #### CBC #### [facility] [address] [place] [address] Dr. Yara Chavez Hemoglobin (Bld) [Mass/Vol] 12.3 g/dL Critically low 14.0-18.0 [facility] Comment on above: Performed By: #### CBC #### [facility] [address] [place] [address] Dr. Yara Chavez IG # 0.01 10e3/ul Normal 0.00-0.03 [facility] Comment on above: Performed By: #### CBC #### [facility] [address] [place] [address] Dr. Yara Chavez IG % 0.3 % Normal 0.0-0.5 [facility] Comment on above: Performed By: #### CBC #### [facility] [address] [place] [address] Dr. Yara Chavez LYMPH # 1.1 103/ul Critically low 1.2-3.8 [facility] Comment on above: Performed By: #### CBC #### [facility] [address] [place] [address] Dr. Yara Chavez Lymphocytes/100 WBC (Bld) 36.1 % Normal 20.5-60.0 [facility] Comment on above: Performed By: #### CBC #### [facility] [address] [place] [address] Dr. Yara Chavez MANUAL DIFF REQ NO Normal [facility] Comment on above: Performed By: #### CBC #### [facility] [address] [place] [address] Dr. Yara Chavez MCH (RBC) [Entitic mass] 28.0 pg Normal 25.9-34.0 [facility] Comment on above: Performed By: #### CBC #### [facility] [address] [place] [address] Dr. Yara Chavez MCHC (RBC) [Mass/Vol] 31.8 g/dL Normal 29.9-35.2 [facility] Comment on above: Performed By: #### CBC #### [facility] [address] [place] [address] [address] Yara Chavez MCV (RBC) [Entitic vol] 88.2 fL Normal 80.0-94.0 [facility] Comment on above: Performed By: #### CBC #### [facility] [address] [place] [address] [address] Yara Chavez MONO # 0.3 103/ul Normal 0.3-0.8 [facility] Comment on above: Performed By: #### CBC #### [facility] [address] [place] [address] [address] Yara Chavez Monocytes/100 WBC (Bld) 9.5 % Normal 1.7-12.0 [facility] Comment on above: Performed By: #### CBC #### [facility] [address] [place] [address] Dr. Yara Chavez NEUT # 1.5 103/ul Normal 1.4-6.5 [facility] Comment on above: Performed By: #### CBC #### [facility] [address] [place] [address] Dr. Yara Chavez Neutrophils/100 WBC (Bld) 52.4 % Normal 43.0-75.0 [facility] Comment on above: Performed By: #### CBC #### [facility] [address] [place] [address] Dr. Yara Chavez Platelet mean volume (Bld) [Entitic vol] 10.1 fL Normal 9.5-13.5 [facility] Comment on above: Performed By: #### CBC #### [facility] [address] [place] [address] Dr. Yara Chavez PLT 195 103/ul Normal 150-450 [facility] Comment on above: Performed By: #### CBC #### [facility] [address] [place] [address] Dr. Yara Chavez RBC 4.39 106/ul Critically low 4.70-6.10 [facility] Comment on above: Performed By: #### CBC #### [facility] [address] [place] [address] Dr. Yara Chavez WBC 2.9 103/ul Critically low 4.0-11.0 [facility] Comment on above: Performed By: #### CBC #### [facility] [address] [place] [address] [address] Yara Chavez LIPID PROFILEon 11-24-2021 CHOL-HDL RATIO NORM SEE BELOW Normal [facility] Comment on above: Result Comment: 3.3 - 4.4 LOW RISK 4.4 - 7.1 AVERAGE RISK 7.1 - 11.0 MODERATE RISK >11.0 HIGH RISK Performed By: #### A LT, BMP, LIPID #### [facility] [address] [place] [address] [address] Yara Chavez Cholesterol [Mass/Vol] 124 mg/dL Normal <=200 [facility] Comment on above: Performed By: #### ALT, BMP, LIPID #### [facility] [address] [place] [address] [address] Yara Chavez Cholesterol in HDL [Mass/Vol] 41 mg/dL Normal 40-60 [facility] Comment on above: Performed By: #### ALT, BMP, LIPID #### [facility] [address] [place] [address] [address] Yara Chavez Cholesterol in LDL [Mass/Vol] 56.8 mg/dL Normal [facility] Comment on above: Performed By: #### ALT, BMP, LIPID #### [facility] [address] [place] [address] [address] Yara Chavez Cholesterol.tota l/Cholesterol in HDL [Mass ratio] 3.0 {ratio} Normal [facility] Comment on above: Performed By: #### ALT, BMP, LIPID #### [facility] [address] [place] [address] [address] Yara Chavez HDL NORMAL > or = 60 mg/dl - LO W CARDIOVASCULAR RISK <40 mg/dl - HIGH CARDIOVASCULAR RISK Normal [facility] Comment on above: Performed By: #### ALT, BMP, LIPID #### [facility] [address] [place] [address] [address] Yara Chavez LDL CALC NORMAL SEE BELOW Normal [facility] Comment on above: Result Comment: <100 mg/dl OPTIMAL 100 - 129 mg/dl NEAR OR ABOVE OPTIMAL 130 - 159 mg/dl BORDERLINE HIGH 160 - 189 mg/dl HIGH >190 mg/dl VERY HIGH Performed By: #### A LT, BMP, LIPID #### [facility] [address] [place] [address] Dr. Yara Chavez Triglyceride [Mass/Vol] 131 mg/dL Normal <=150 [facility] Comment on above: Performed By: #### ALT, BMP, LIPID #### [facility] [address] [place] [address] Dr. Yara Chaevz VLDL CALC 26.2 mg/dL Normal [facility] Comment on above: Performed By: #### ALT, BMP, LIPID #### [facility] [address] [place] [address] Dr. Yara Chavez MICROALBUMIN, RAND URon 07- mALB 1.4 mg/L Normal <=30.0 [facility] Comment on above: Performed By: #### MALBR #### [facility] [address] [place] [address] Dr. Yara Chavez PROF CHEM 8 (BAS METB)on Anion gap [Moles/Vol] 10.1 mmol/L Normal [facility] Comment on above: Performed By: #### ALT, BMP, LIPID #### [facility] [address] [place] [address] Dr. Yara Chavez Calcium [Mass/Vol] 9.0 mg/dL Normal 8.5-10.1 [facility] Comment on above: Performed By: #### ALT, BMP, LIPID #### [facility] [address] [place] [address] Dr. Yara Chavez Chloride [Moles/Vol] 105 mmol/L Normal 98-107 [facility] Comment on above: Performed By: #### ALT, BMP, LIPID #### [facility] [address] [place] [address] Dr. Yara Chavez CO2 [Moles/Vol] 31.3 mmol/L Normal 21.0-32.0 [facility] Comment on above: Performed By: #### ALT, BMP, LIPID #### [facility] [address] [place] [address] [address] Yara Chavez Creatinine [Mass/Vol] 1.24 mg/dL Normal 0.70-1.30 [facility] Comment on above: Performed By: #### ALT, BMP, LIPID #### [facility] [address] [place] [address] [address] Yara Chavez EGFR-AF GHANAIAN >60 Normal >=60 [facility] Comment on above: Performed By: #### ALT, BMP, LIPID #### [facility] [address] [place] [address] [address] Yara Chavez EGFR-NON AF GHANAIAN 58 mL/min/1.73m2 Critically low >=60 [facility] Comment on above: Performed By: #### ALT, BMP, LIPID #### [facility] [address] [place] [address] [address] Yara Chavez Glucose [Mass/Vol] 102 mg/dL Normal 74-106 [facility] Comment on above: Performed By: #### ALT, BMP, LIPID #### [facility] [address] [place] [address] [address] Yara Chavez Potassium [Moles/Vol] 4.4 mmol/L Normal 3.5-5.1 [facility] Comment on above: Performed By: #### ALT, BMP, LIPID #### [facility] [address] [place] [address] [address] Yara Chavez Sodium [Moles/Vol] 142 mmol/L Normal 136-145 [facility] Comment on above: Performed By: #### ALT, BMP, LIPID #### [facility] [address] [place] [address] [address] Yara Chavez Urea nitrogen [Mass/Vol] 22.0 mg/dL Critically high 7.0-18.0 [facility] Comment on above: Performed By: #### ALT, BMP, LIPID #### [facility] [address] [place] [address] [address] Yara Chavez Urea nitrogen/Creatin ine [Mass ratio] 17.7 mg/mg Normal [facility] Comment on above: Performed By: #### ALT, BMP, LIPID #### [facility] [address] [place] [address] Dr. Yara Chavez SGPTon 11-24-2021 ALT [Catalytic activity/Vol] 48 U/L Normal 16-63 [facility] Comment on above: Performed By: #### ALT, BMP, LIPID #### [facility] [address] [place] [address] Dr. Yara Chavez GLYCOHEMOGLOBIN A1Con 2021 ADA RECOMMENDATION SEE BELOW Normal [facility] Comment on above: Result Comment: ADA RECOMMENDED LIMIT 4. 0 - 6.0 ADA THERAPEUTIC TARGET < 7.0 ACTION SUGGESTED > 7.0 Performed By: #### A 1C #### [facility] [address] [place] [address] Dr. Yara Chavez Glucose [Mass/Vol] 169 mg/dL Normal [facility] Comment on above: Performed By: #### A1C #### [facility] [address] [place] [address] Dr. Yara Chavez HbA1c (Bld) [Mass fraction] 7.5 % Critically high 4.5-6.2 [facility] Comment on above: Performed By: #### A1C #### [facility] [address] [place] [address] Dr. Yara Chavez PROF CHEM 8 (BAS METB)on Anion gap [Moles/Vol] 12.0 mmol/L Normal [facility] Comment on above: Performed By: #### BMP #### [facility] [address] [place] [address] Dr. Yara Chavez Calcium [Mass/Vol] 8.7 mg/dL Normal 8.5-10.1 [facility] Comment on above: Performed By: #### BMP #### [facility] [address] [place] [address] Dr. Yara Chavez Chloride [Moles/Vol] 103 mmol/L Normal 98-107 [facility] Comment on above: Performed By: #### BMP #### [facility] [address] [place] [address] Dr. Yara Chavez CO2 [Moles/Vol] 29.1 mmol/L Normal 21.0-32.0 [facility] Comment on above: Performed By: #### BMP #### [facility] [address] [place] [address] [address] Yara Chavez Creatinine [Mass/Vol] 1.17 mg/dL Normal 0.70-1.30 [facility] Comment on above: Performed By: #### BMP #### [facility] [address] [place] [address] [address] Yara Chavez EGFR-AF GHANAIAN >60 Normal >=60 [facility] Comment on above: Performed By: #### BMP #### [facility] [address] [place] [address] Dr. Yara Chavez EGFR-NON AF GHANAIAN >60 Normal >=60 [facility] Comment on above: Performed By: #### BMP #### [facility] [address] [place] [address] Dr. Yara Chavez Glucose [Mass/Vol] 144 mg/dL Critically high 74-106 [facility] Comment on above: Performed By: #### BMP #### [facility] [address] [place] [address] [address] Yara Chavez Potassium [Moles/Vol] 4.1 mmol/L Normal 3.5-5.1 [facility] Comment on above: Performed By: #### BMP #### [facility] [address] [place] [address] Dr. Yara Chavez Sodium [Moles/Vol] 140 mmol/L Normal 136-145 [facility] Comment on above: Performed By: #### BMP #### [facility] [address] [place] [address] Dr. Yara Chavez Urea nitrogen [Mass/Vol] 18.0 mg/dL Normal 7.0-18.0 [facility] Comment on above: Performed By: #### BMP #### [facility] [address] [place] [address] [address] Yara Chavez Urea nitrogen/Creatin ine [Mass ratio] 15.4 mg/mg Normal [facility] Comment on above: Performed By: #### BMP #### [facility] [address] [place] [address] Dr. Yara Chavez CNOVSPon 04-02-2019 CNOVSP Visit (SP) Office ( [facility]) DUKELISA CORONA ([id number]) 1950 M Date Time Provider Department 04/02/19 11:15 AM THAIS HEBERT During your visit today, we recorded the following information about you: Temperature Pulse Respiration Blood pressure 98.1 degrees 72/minute 16/minute 131/69 Weight Height 80.5 kg 1.778 m Thais Hebert DO 04/03/2019 1:15 PM Signed PATIENT NAME: Lisa Lugo REFERRING PHYSICIAN: Theron Mendoza MD ([facility]) [address] [place] [address] PRIMARY CARE PHYSICIAN: Theron Mendoza MD CHIEF [...] - CBC + DIFF (FOR REMOTE [facility] [facility] USE) - IRON + TIBC - FERRITIN BLD - VITAMIN B12 BLOOD - FOLATE SERUM - METHYLMALONIC ACID - HEP REMOTE PANEL BL - SED RATE [facility] Return labs today. f/u 6 mos. . [...] mg by mouth once daily. pantoprazole DR AveryPROTONIX) 40 mg tablet Take 40 mg by [...] questions satisfactorily.. Francois Hebert D.O. Medical Oncologist [facility] [place], [place] Referring Provider: THERON MENDOZA [[id number]] Allergies As of Date: 04/02/2019 (No Known Allergies) Date Reviewed: 04/02/2019 Reviewed by: Dorene Germain - Fully Assessed Reason for Visit: abdnormal lab [Other] Cmt: new patient consultation Primary Visit Diagnosis:Leukopenia, unspecified type [D72.819] Other Visit Diagnosis:Abnormal finding of blood chemistry, unspecified [R79.9] Order(s):PROTEIN ELECTROPHORESIS W/INTERP [SQSEPG] Order #: [id number] FUTURE MONOCLONAL PROTEIN, SERUM (BLOOD) [SQSERMPA] Order #: [id number] FUTURE IMMUNOGLOBULINS SHANIA [SQSERIMM] Order #: [id number] FUTURE LD LACTATE DEHYDRO [SQLD6] Order #: [id number] FUTURE COMP METABOLIC PANEL [SQCMP] Order #: [id number] FUTURE CBC + DIFF (FOR REMOTE C USE) [SQRCBCDF] Order #: [id number] FUTURE IRON + TIBC [SQIRON] Order #: [id number] FUTURE FERRITIN BLD [SQFERR] Order #: [id number] FUTURE VITAMIN B12 BLOOD [SQB12] Order #: [id number] FUTURE FOLATE SERUM [SQSERFOL] Order #: [id number] FUTURE METHYLMALONIC ACID [SQMMA] Order #: [id number] FUTURE HEP REMOTE PANEL BL [SQHREMOP] Order #: [id number] FUTURE SED RATE WESTERGREN [SQWSR] Order #: [id number] FUTURE Disposition: Return labs today. f/u 6 [...] by THAIS HEBERT DO on 04/03/19 Normal [facility] Comp Metabolic Panelon 04-02 Albumin [Mass/Vol] 4.4 g/dL Normal 3.9-4.9 [facility] ALP [Catalytic activity/Vol] 102 U/L Normal 38-113 [facility] ALT [Catalytic activity/Vol] 53 U/L Normal 10-54 [facility] Anion gap [Moles/Vol] 13 mmol/L Normal 9-18 [facility] AST [Catalytic activity/Vol] 31 U/L Normal 14-40 [facility] Bilirubin [Mass/Vol] 0.6 mg/dL Normal 0.2-1.3 [facility] Calcium [Mass/Vol] 9.6 mg/dL Normal 8.5-10.2 [facility] Chloride [Moles/Vol] 98 mmol/L Normal 97-105 [facility] CO2 [Moles/Vol] 24 mmol/L Normal 22-30 [facility] Creatinine [Mass/Vol] 0.94 mg/dL Normal 0.73-1.22 [facility] eGFR- Amer. >60 Normal [facility] GFR/1.73 sq M predicted among non-blacks MDRD (S/P/Bld) [Vol rate/Area] mL/min/{1.73_m2} Normal [facility] Comment on above: Result Comment: eGFR (Estimated [...] GFR. Glucose [Mass/Vol] 257 mg/dL High 74-99 [facility] Comment on above: Result Comment: The [place] Diabetes As sociation (ADA) provides guidance for [...] Standards of Medical Care in Diabetes 2016, [place] [employer] Association. Diabetes Care. 2016.39(Suppl 1). Potassium [Moles/Vol] 4.8 mmol/L Normal 3.7-5.1 [facility] Protein [Mass/Vol] 7.4 g/dL Normal 6.3-8.0 [facility] Sodium [Moles/Vol] 135 mmol/L Low 136-144 [facility] Urea nitrogen [Mass/Vol] 19 mg/dL Normal 9-24 [facility] Ferritinon 04-02-2019 Ferritin [Mass/Vol] 279.0 ng/mL Normal 30.3-565.7 [facility] Comment on above: Performed By: #### WSR, B12, SERFOL, IRO N, FERR, SERIMM, HREMOP, SERMPA, SEPG, MMA #### [place] [phone] Folate, Serumon 04-02-2019 Folate [Mass/Vol] ng/mL Normal >4.7 [facility] Comment on above: Result Comment: A result of > 20 ng/mL i s not necessarily indicative of a pathologic or treatable condition: it reflects a limitation of the test methodology. Assay reference range: 4.8 to 24.2 ng/mL. Suitable for detection of folate deficiency. Reference: Folate III (Folate III) [package insert V 2.0 Kazakh]. [facility], [place], [place]: February 2015. Performed By: #### W SR, B12, SERFOL, IRON, FERR, SERIMM, HREMOP, SERMPA, SEPG, MMA #### [place] [phone] Hepatitis Remote Panelon HBsAg Negative Normal Negative [facility] Comment on above: Performed By: #### WSR, B12, SERFOL, IRO N, FERR, SERIMM, HREMOP, SERMPA, SEPG, MMA #### [place] [phone] Hep B Core Ab,Total Negative Normal Negative [facility] Comment on above: Performed By: #### WSR, B12, SERFOL, IRO N, FERR, SERIMM, HREMOP, SERMPA, SEPG, MMA #### [place] [phone] Hepatitis C Ab IA Negative Normal Negative [facility] Comment on above: Performed By: #### WSR, B12, SERFOL, IRO N, FERR, SERIMM, HREMOP, SERMPA, SEPG, MMA #### [place] [phone] HepB Surface Ab,Qual Negative Normal Negative [facility] Comment on above: Result Comment: NEGATIVE Performed By: #### W SR, B12, SERFOL, IRON, FERR, SERIMM, HREMOP, SERMPA, SEPG, MMA #### [place] [phone] Immunoglobulins GAMon 2018 IgA [Mass/Vol] 323 mg/dL Normal 78-391 [facility] Comment on above: Performed By: #### WSR, B12, SERFOL, IRO N, FERR, SERIMM, HREMOP, SERMPA, SEPG, MMA #### [place] [phone] IgG [Mass/Vol] 981 mg/dL Normal 717-1411 [facility] Comment on above: Performed By: #### WSR, B12, SERFOL, IRO N, FERR, SERIMM, HREMOP, SERMPA, SEPG, MMA #### [place] [phone] IgM [Mass/Vol] 133 mg/dL Normal 53-334 [facility] Comment on above: Performed By: #### WSR, B12, SERFOL, IRO N, FERR, SERIMM, HREMOP, SERMPA, SEPG, MMA #### [place] [phone] Iron and TIBCon 04-02-2019 Iron [Mass/Vol] 80 ug/dL Normal 41-186 [facility] Comment on above: Performed By: #### WSR, B12, SERFOL, IRO N, FERR, SERIMM, HREMOP, SERMPA, SEPG, MMA #### [place] [phone] TIBC 247 ug/dL Normal 232-386 [facility] Comment on above: Performed By: #### WSR, B12, SERFOL, IRO N, FERR, SERIMM, HREMOP, SERMPA, SEPG, MMA #### [facility] [address] [place] [address] Transferrin Saturatn 32 % Normal 15-57 [facility] Comment on above: Performed By: #### WSR, B12, SERFOL, IRO N, FERR, SERIMM, HREMOP, SERMPA, SEPG, MMA #### [place] [address] LDon 04-02-2019 LD 131 U/L Low 135-225 [facility] Comment on above: Performed By: #### WSR, B12, SERFOL, IRO N, FERR, SERIMM, HREMOP, SERMPA, SEPG, MMA #### [place] [address] Methylmalonic Acidon 019 Methylmalonic Acid 232 nmol/L Normal 79-376 [facility] Comment on above: Result Comment: This test was developed and its performance characteristics determined by [facility] [place] ([facility]). It has not been cleared or approved by the FDA. [facility] is regulated under CLIA as qualified to perform high complexity testing. This test is used for clinical purposes. It should not be regarded as investigational or for research. Performed By: #### W SR, B12, SERFOL, IRON, FERR, SERIMM, HREMOP, SERMPA, SEPG, MMA ####[place] [phone] Monclnl Protein, Seron 04-02 K/L Ratio, Serum 1.88 High 0.26-1.65 [facility] Comment on above: Performed By: #### WSR, B12, SERFOL, IRO N, FERR, SERIMM, HREMOP, SERMPA, SEPG, MMA ####[place] [address] [address] [phone] [place], Free, Serum 47.1 mg/L High 3.30-19.40 [facility] Comment on above: Result Comment: Test performed by an imm unoturbidimetric assay on Optilite instrument from [facility]. Immunoglobulin free light chain assay results should be interpreted in conjunction with other tests and in correlation with clinical picture. Performed By: #### W SR, B12, SERFOL, IRON, FERR, SERIMM, HREMOP, SERMPA, SEPG, MMA ####[place] [address] [address] [place] [phone] Lambda, Free, Serum 25.0 mg/L Normal 5.7-26.3 [facility] Comment on above: Result Comment: Test performed by an imm unoturbidimetric assay on Optilite instrument from [facility]. Immunoglobulin free light chain assay results should be interpreted in conjunction with other tests and in correlation with clinical picture. Performed By: #### W SR, B12, SERFOL, IRON, FERR, SERIMM, HREMOP, SERMPA, SEPG, MMA ####[place] [address] [address] [place] [phone] MPA Serum IgA 336 mg/dL Normal 78-391 [facility] Comment on above: Performed By: #### WSR, B12, SERFOL, IRO N, FERR, SERIMM, HREMOP, SERMPA, SEPG, MMA ####[place] [phone] Ave[place] [phone] MPA Serum IgG 950 mg/dL Normal 717-1411 [facility] Comment on above: Performed By: #### WSR, B12, SERFOL, IRO N, FERR, SERIMM, HREMOP, SERMPA, SEPG, MMA ####[place] [address] [address] [place] [phone] MPA Serum IgM 136 mg/dL Normal 53-334 [facility] Comment on above: Performed By: #### WSR, B12, SERFOL, IRO N, FERR, SERIMM, HREMOP, SERMPA, SEPG, MMA ####[facility] [place], [place] [phone] Protein [Mass/Vol] No M protein is identified. Normal No M protein is identified . [facility] Comment on above: Performed By: #### WSR, B12, SERFOL, IRO N, FERR, SERIMM, HREMOP, SERMPA, SEPG, MMA ####[place] [phone] [place], [place] [phone] Staff Review Reviewed by Chadd Ackerman MD ([id number]) Normal [facility] Comment on above: Performed By: #### WSR, B12, SERFOL, IRO N, FERR, SERIMM, HREMOP, SERMPA, SEPG, MMA ####[address] [phone] PROGRESSon 04-02-2019 PROGRESS HNO ID: [id number] Author: Thais Hebert Service: ? Author Type: Physician Type: Progress Notes Filed: 04/03/2019 1:15 PM Note Text: PATIENT NAME: Lisa Lugo REFERRING PHYSICIAN: Theron Mendoza MD ([facility]) [address] [facility] [place] [facility] [address] PRIMARY CARE PHYSICIAN: Theron Mendoza MD CHIEF [...] - CBC + DIFF (FOR REMOTE [facility] USE) - IRON + TIBC [...] questions satisfactorily.. Francois Hebert D.O. Medical Oncologist [facility] [place], [place] Normal [facility] Protein Electrophor.on 04-02 Albumin [Mass/Vol] 3.79 g/dL Normal 3.37-4.23 [facility] Comment on above: Performed By: #### WSR, B12, SERFOL, IRO N, FERR, SERIMM, HREMOP, SERMPA, SEPG, MMA ####[facility] [address] [place], [place] [phone] Alpha 1 Globulin 0.31 gm/dL Normal 0.18-0.31 [facility] Comment on above: Performed By: #### WSR, B12, SERFOL, IRO N, FERR, SERIMM, HREMOP, SERMPA, SEPG, MMA ####[place] [phone] [place] [phone] Alpha 2 Globulin 0.96 gm/dL Normal 0.52-0.97 [facility] Comment on above: Performed By: #### WSR, B12, SERFOL, IRO N, FERR, SERIMM, HREMOP, SERMPA, SEPG, MMA ####[place] [address] [address] [place] [phone] Beta Globulin 1.17 gm/dL Normal 0.84-1.36 [facility] Comment on above: Performed By: #### WSR, B12, SERFOL, IRO N, FERR, SERIMM, HREMOP, SERMPA, SEPG, MMA ####[place] [address] [address] [place] [phone] Gamma Globulin 0.97 gm/dL Normal 0.70-1.44 [facility] Comment on above: Performed By: #### WSR, B12, SERFOL, IRO N, FERR, SERIMM, HREMOP, SERMPA, SEPG, MMA ####[place] [address] [address] [place] [phone] Interpretation SEE COMMENT Normal [facility] Comment on above: Result Comment: No definitive M protein is identified on protein electrophoresis. Performed By: #### W SR, B12, SERFOL, IRON, FERR, SERIMM, HREMOP, SERMPA, SEPG, MMA ####[place] [address] [place] [phone] M Guy Concentratn 0.00 gm/dL Normal 0.00 [facility] Comment on above: Performed By: #### WSR, B12, SERFOL, IRO N, FERR, SERIMM, HREMOP, SERMPA, SEPG, MMA ####[place] [address] [place], [place] [phone] Protein [Mass/Vol] 7.2 g/dL Normal 6.0-8.4 [facility] Comment on above: Performed By: #### WSR, B12, SERFOL, IRO N, FERR, SERIMM, HREMOP, SERMPA, SEPG, MMA ####[place] [address] Ave[address]ugar [place], [place] [phone] Protein [Mass/Vol] N/A Normal [facility] Comment on above: Performed By: #### WSR, B12, SERFOL, IRO N, FERR, SERIMM, HREMOP, SERMPA, SEPG, MMA ####[place] [address] [address] [place], [place] [phone] SPE Staff Review Reviewed by Chadd Ackerman MD ([id number]) Normal [facility] Comment on above: Performed By: #### WSR, B12, SERFOL, IRO N, FERR, SERIMM, HREMOP, SERMPA, SEPG, MMA ####[place] [address] [address] [place], [place] [phone] Remote CBCDIF (for [facility] use o nly)on 04-02-2019 Abs Baso <0.03 Normal 0.00-0.10 [facility] Abs [place] 0.48 k/uL Normal 0.00-0.86 [facility] Abs Neut 4.30 k/uL Normal 1.45-7.50 [facility] Basophils/100 WBC (Bld) 0.2 % Normal [facility] Eosinophils (Bld) [#/Vol] 0.04 10*3/uL Normal 0.00-0.45 [facility] Eosinophils/100 WBC (Bld) 0.7 % Normal [facility] Erythrocyte distribution width (RBC) [Ratio] 13.9 % Normal 11.5-15.0 [facility] Hematocrit (Bld) [Volume fraction] 39.6 % Normal 39.0-51.0 [facility] Hemoglobin (Bld) [Mass/Vol] 12.6 g/dL Low 13.0-17.0 [facility] Lymphocytes (Bld) [#/Vol] 0.84 10*3/uL Low 1.00-4.00 [facility] Lymphocytes/100 WBC (Bld) 14.8 % Normal [facility] MCH (RBC) [Entitic mass] 27.4 pG Normal 26.0-34.0 [facility] MCHC (RBC) [Mass/Vol] 31.8 g/dL Normal 30.5-36.0 [facility] MCV (RBC) [Entitic vol] 86.1 fL Normal 80.0-100.0 [facility] Monocytes/100 WBC (Bld) 8.5 % Normal [facility] Neutrophils/100 WBC (Bld) 75.8 % Normal [facility] Platelet mean volume (Bld) [Entitic vol] 9.7 fL Normal 9.0-12.7 [facility] Platelets (Bld) [#/Vol] 243 10*3/uL Normal 150-400 [facility] RBC (Bld) [#/Vol] 4.60 10*6/uL Normal 4.20-6.00 [facility] WBC (Bld) [#/Vol] 5.67 10*3/uL Normal 3.70-11.00 [facility] Sed Rate Westergrenon 2018 Sed Rate Westergren 41 mm/hr High 0-15 [facility] Comment on above: Performed By: #### WSR, B12, SERFOL, IRO N, FERR, SERIMM, HREMOP, SERMPA, SEPG, MMA #### [facility] [address] [place], [place] [address] Vitamin B12on 04-02-2019 Cobalamin (Vitamin B12) [Mass/Vol] 595 pg/mL Normal 232-1245 [facility] Comment on above: Performed By: #### WSR, B12, SERFOL, IRO N, FERR, SERIMM, HREMOP, SERMPA, SEPG, MMA #### [facility] [address] [place], [place] [address] Cardiovascular Lab Reporton 04-26-2017 Cardiovascular Lab Report [facility] Patient Name: Lisa Lugo [facility] MR #: [id number] Physician: Jenny Parsons M.D.Medicine Service Date: 04/25/2017Division of Birthdate: 2Cardiology Room #: 3CD [id number] [facility]ovascularServicMem[facility] [place], [place] [address]Gmvnt Fax Cardiovascular Laboratory ReportINDICATION: Mr. Lisa Lugo is a 66-year-old man, known to havecoronary artery disease status post multiple stenting procedures in [facility]. Recently, he presented with transient ST-segment elevation in thesetting of ongoing chest pain. He underwent cardiac catheterization anddrug-eluting stenting of the distal right coronary artery de rachel stenosisas well as drug-eluting stenting of the proximal right coronary arteryin-stent restenosis. At that time, he was found to have ycln-olwyrhi-trpao restenosis in the mid LAD. He is [...] angiography was performedfollowed by upsizing to a 6-Chilean x 11 cm sheath. Heparin wasadministered intravenously and therapeutic ACT confirmed during theprocedure. A 6-Chilean XB 3.5 guiding catheter was advanced and [...] to the [place] wire.Angiography was performed. [place] [email or web address] [place] 2.5 x 15 mm noncompliantballoon was then [...] 04/25/2017/09:47 A/Jenny Coppola M.D.Date Trans: 04/26/2017 02:28 A/[id number]_[id number]: Theron Mendoza D.O. [address] [place] [address] A [facility] [phone] Normal [facility] POC GLUCOSE LABon 04-26-2017 Glucose mass conc 99 mg/dL Normal 70-100 [facility] Comment on above: Performed By: #### [address] ####[facility] [facility].[address] CBC COMPLETE BLOOD COUNTon 1 06-26-2016 Erythrocyte distribution width Auto Ratio (RBC) 14.3 % Normal 11.5-16.9 [facility] Comment on above: Order Comment: Yes: Add to Previous draw if able Performed By: #### 5 0608 ####[facility] [facility].[address] Erythrocytes (RBC) 4.16 mill/mm3 Low 4.30-5.90 [facility] Comment on above: Order Comment: Yes: Add to Previous draw if able Performed By: #### 5 0608 ####[facility] [facility].[address] Hematocrit (HCT) 34.8 % Low 39.0-55.0 [facility] Comment on above: Order Comment: Yes: Add to Previous draw if able Performed By: #### 5 0608 ####[place] [id number] [facility].[address] Hemoglobin mass conc (Bld) 11.8 g/dL Low 13.9-16.3 [facility] Comment on above: Order Comment: Yes: Add to Previous draw if able Performed By: #### 5 0608 ####[facility] MCH 28.2 pg Normal 24.0-32.0 [facility] Comment on above: Order Comment: Yes: Add to Previous draw if able Performed By: #### 5 0608 ####[facility] MCHC mass conc (RBC) 33.8 g/dL Normal 32.0-36.0 [facility] Comment on above: Order Comment: Yes: Add to Previous draw if able Performed By: #### 5 0608 ####[facility] [facility].[address] MCV 83.6 fL Normal 80.0-100.0 [facility] Comment on above: Order Comment: Yes: Add to Previous draw if able Performed By: #### 5 0608 ####[facility] [facility].[address] PLAT CNT 198 Thou/mm3 Normal 100-400 [facility] Comment on above: Order Comment: Yes: Add to Previous draw if able Performed By: #### 5 0608 ####[facility] [facility].[address] WBC (Leukocytes) 3.9 Thou/mm3 Low 4.0-10.0 [facility] Comment on above: Order Comment: Yes: Add to Previous draw if able Performed By: #### 5 0608 ####[facility] [facility].[address] POC GLUCOSE LABon 04-25-2017 Glucose mass conc 232 mg/dL High 70-100 [facility] Comment on above: Performed By: #### [address] ####[facility] Glucose mass conc 281 mg/dL High 70-100 [facility] Comment on above: Performed By: #### [address] ####[facility] Discharge Summaryon 04-20-20 Discharge Summary MR#: [id number] [facility]o Admitted: 04/15/2017 [...] history, requiring stentingin the past, presented to [facility] initially with complaints ofrecurrent chest pain at rest. Initial EKG showed minor ST-segment elevationin the inferior leads, which resolved after administration of IV heparinand nitroglycerin. [facility] and intervention. Heunderwent left heart catheterization with successful balloon dilatation andstenting of 2 lesions. The patient recovered well postprocedure with nofurther recurrence of chest pain. Right femoral access site healed well.DISCHARGE CONDITION: Stable.DISCHARGE DISPOSITION: Home.DISCHARGE MEDICATIONS: Aspirin 81 mg daily, atenolol 25 mg daily, Jamqaszu965 mg daily, Clopidogrel 75 mg daily, Lantus [...] 04/19/2017/06:17 P/Arely Campos, MDDate Trans: 04/20/2017 07:36 A/[id number]: Theron Mendoza D.O. [address] [place] [phone] Tino Gunderson M.D. [address] [facility] [address] Normal [facility] BASIC METABOLIC PANELon 12- Calcium 9.0 mg/dL Normal 8.6-10.3 [facility] Comment on above: Order Comment: No: Do not add to previou s draw Performed By: #### 1 69, [address] ####[facility] [place] [address], [facility] Chloride 104 mmol/L Normal 98-107 [facility] Comment on above: Order Comment: No: Do not add to previou s draw Performed By: #### 1 0, [address] ####[facility] [place] [address], [facility] CO2 24 mmol/L Normal 21-31 [facility] Comment on above: Order Comment: No: Do not add to previou s draw Performed By: #### 1 0, [address] ####[facility] [place] [address], [facility] Creatinine 0.94 mg/dL Normal 0.70-1.30 [facility] Comment on above: Order Comment: No: Do not add to previou s draw Performed By: #### 1 69, [address] ####[facility] [place] [address], [facility] eGFR (black) mL/min/{1.73_m2} Normal >60 [facility] Comment on above: Order Comment: No: Do not add to previou s draw Performed By: #### 1 69, 21367 ####[facility] [place] [address], [facility] eGFR (non-black) mL/min/{1.73_m2} Normal >60 Th e [facility] Comment on above: Order Comment: No: Do not add to previou s draw Performed By: #### 1 69, [address] ####[facility] [place] [address], [facility] Glucose mass conc 182 mg/dL High 70-100 [facility] Comment on above: Order Comment: No: Do not add to previou s draw Performed By: #### 1 69, ####[facility] [place] [address], [facility] Potassium molar conc 3.9 mmol/L Normal 3.5-5.1 [facility] Comment on above: Order Comment: No: Do not add to previou s draw Performed By: #### 1 69, ####[facility] [place] [address], [facility] Sodium 138 mmol/L Normal 136-145 [facility] Comment on above: Order Comment: No: Do not add to previou s draw Performed By: #### 1 69, 55550 ####[facility] [place] [address], [facility] Urea nitrogen 18 mg/dL Normal 7-25 [facility] Comment on above: Order Comment: No: Do not add to previou s draw Performed By: #### 1 69, [address] ####[facility] [facility].[address] CBC COMPLETE BLOOD COUNTon 06-17-2016 Erythrocyte distribution width Auto Ratio (RBC) 14.7 % Normal 11.5-16.9 [facility] Comment on above: Order Comment: No: Do not add to previou s draw Performed By: #### 5 0608 ####[facility] Erythrocytes (RBC) 4.37 mill/mm3 Normal 4.30-5.90 [facility] Comment on above: Order Comment: No: Do not add to previou s draw Performed By: #### 5 0608 ####[facility] Hematocrit (HCT) 36.5 % Low 39.0-55.0 [facility] [facility] Comment on above: Order Comment: No: Do not add to previou s draw Performed By: #### 5 [id number] ####[facility].[address] Hemoglobin mass conc (Bld) 12.3 g/dL Low 13.9-16.3 [facility] Comment on above: Order Comment: No: Do not add to previou s draw Performed By: #### 5 [id number] ####[facility].[address] MCH 28.0 pg Normal 24.0-32.0 [facility] Comment on above: Order Comment: No: Do not add to previou s draw Performed By: #### 5 [id number] ####[facility].[address] MCHC mass conc (RBC) 33.5 g/dL Normal 32.0-36.0 [facility] Comment on above: Order Comment: No: Do not add to previou s draw Performed By: #### 5 [id number] ####[facility].[address] MCV 83.5 fL Normal 80.0-100.0 [facility] Comment on above: Order Comment: No: Do not add to previou s draw Performed By: #### 5 [id number] ####[facility].[place], [place] [id number] [place] [address] PLAT CNT 167 Thou/mm3 Normal 100-400 [facility] Comment on above: Order Comment: No: Do not add to previou s draw Performed By: #### 5 [id number] ####[facility] WBC (Leukocytes) 4.7 Thou/mm3 Normal 4.0-10.0 [facility] Comment on above: Order Comment: No: Do not add to previou s draw Performed By: #### 5 [id number] ####[facility] [address] Cardiovascular Lab Reporton 04-16-2017 Cardiovascular Lab Report [facility] Patient Name: Lisa Lugo [facility] MR #: [id number] Physician: Jenny Parsons M.D.Medicine Service Date: 04/15/2017Division of Birthdate: 2Cardiology Room #: 3AB [id number] [place] [address]Phone Fax Cardiovascular Laboratory ReportINDICATION: Lisa Lugo is a 66-year-old man, known to have coronaryartery disease, status post multiple stenting procedures in the past, [facility] with recurrent chest pain at rest. Heinitially had minor ST elevations in the inferior leads that resolved afteradministration of intravenous heparin and nitroglycerin. Because ofrecurrent chest pain, he was transferred emergently to our helper animal laboratory fordiagnostic angiography and intervention.PROCEDURE:1. Bilateral selective coronary [...] EMS services. He was placed on the helper animal laboratory table.Both groin areas were prepped and draped in usual fashion. Usingmicropuncture technique, access in the right common femoral artery wasobtained and the inner cannula was advanced. Limited femoral angiographywas performed followed by upsizing to a 6-Chilean x 11 cm sheath. Bilateralselective coronary angiography was then performed using 6-Chilean JL4 andJR4 diagnostic catheters.Heparin was administered intravenously and therapeutic ACT confirmed duringthe procedure. A 6-Chilean JR4 guiding catheter was advanced and used toengage the right coronary ostium. A Prowater wire was advanced into thedistal RCA. Balloon dilatation in the distal RCA was performed usingEmerge 2.0 x 12 mm balloon and inflated at 12 atmospheres. Angiographyrevealed suboptimal results. This was treated using a PROMUS Premier 2.5 x16 mm drug-eluting stent, deployed at 11 atmospheres and post dilated usingNC Quantum [place] 2.5 x 8 mm noncompliant balloon inflated [...] in-stent restenosis was performed using NC [employer] [place] 3.0 x8 mm noncompliant balloon inflated at 14 atmospheres followed by additionaldilatation using NC [employer] [place] 3.0 x 12 mm noncompliant balloon inflatedat [...] 14atmospheres and post dilated using NC [employer] [place] 3.25 x 20 mmnoncompliant balloon inflated at 20 atmospheres throughout the length ofthe stent. Final angiography after administration of intracoronarynitroglycerin showed excellent result with reduction of the stenosis to 0%.No evidence of dissection or perforation. The guiding catheter wasremoved. The procedure was concluded. The right femoral arteriotomy wasmanaged with a 6-Chilean Perclose device with good hemostasis. The patientwas [...] 04/15/2017/06:14 P/Jenny Coppola M.D.Date Trans: 04/16/2017 07:04 A/[id number]: Theron Mendoza D.O. [address] [place] [id number] Tino Gunderson M.D. [address] [place] [id number] Normal [facility] MAGNESIUM BLOODon 04-16-2017 Magnesium 1.9 mg/dL Normal 1.9-2.7 [facility] Comment on above: Order Comment: No: Do not add to previou s draw Performed By: #### 1 0070, [id number] ####[facility] [address] POC GLUCOSE LABon 04-16-2017 Glucose mass conc 173 mg/dL High 70-100 [facility] Comment on above: Performed By: #### [id number] ####[facility] Glucose mass conc 228 mg/dL High 70-100 [facility] Comment on above: Performed By: #### [id number] ####[facility].[address] POC GLUCOSE LABon 04-15-2017 Glucose mass conc 214 mg/dL High 70-100 [facility] Comment on above: Performed By: #### [id number] ####[facility] [address] Vital Signs Date Time Vital Sign Value Performing Clinician Facility 12-18-2023 13:53-0400 Blood Pressure Location Chadd BARBOUR [facility] 12-18-2023 13:53-0400 Diastolic blood pressure 74 mm[Hg] Chadd NILL [facility] 12-18-2023 13:53-0400 Heart rate 70 /min Chadd NILL [facility] 12-18-2023 13:53-0400 Respiratory rate 16 /min Chadd NILL [facility] 12-18-2023 13:53-0400 Systolic blood pressure 126 mm[Hg] Chadd NILL [facility] 11-05-2023 13:43-0400 Body height 177.8 cm [facility] 11-05-2023 13:43-0400 Body mass index (BMI) [Ratio] 25.7 kg/m2 [facility] 11-05-2023 13:43-0400 Body weight 81.24 kg [facility] 11-05-2023 13:43-0400 Diastolic blood pressure 71 mm[Hg] [facility] 11-05-2023 13:43-0400 Heart rate 71 /min [facility] 11-05-2023 13:43-0400 Respiratory rate 12 /min [facility] 11-05-2023 13:43-0400 Systolic blood pressure 121 mm[Hg] [facility] 10-01-2023 12:35-0400 Blood Pressure Location DOMINGA PRESLEY [facility] 10-01-2023 12:35-0400 Diastolic blood pressure 78 mm[Hg] DOMINGA SAKINA [facility] 10-01-2023 12:35-0400 Heart rate 72 /min DOMINGA SAKINA [facility] 10-01-2023 12:35-0400 Respiratory rate 16 /min DOMINGA SAKINA [facility] 10-01-2023 12:35-0400 Systolic blood pressure 137 mm[Hg] DOMINGA PRESLEY [facility] 04-02-2023 09:30-0500 Body height 177.8 cm Theron Ball Other [email or web address] Other 04-02-2023 09:30-0500 Body mass index (BMI) [Ratio] 25.97 kg/m2 Theron Ball Other [email or web address] Other 04-02-2023 09:30-0500 Body weight 82.1 kg Theron Ball Other [email or web address] Other 04-02-2023 09:30-0500 Diastolic blood pressure 85 mm[Hg] Theron Ball Other [email or web address] Other 04-02-2023 09:30-0500 Respiratory rate 12 /min Theron Ball Other [email or web address] Other 04-02-2023 09:30-0500 Systolic blood pressure 135 mm[Hg] Theron Ball Other [email or web address] Other 11-01-2022 10:00-0400 Body height 177.8 cm Theron Ball Other [email or web address] Other 11-01-2022 10:00-0400 Body mass index (BMI) [Ratio] 25.77 kg/m2 Theron Ball Other [email or web address] Other 11-01-2022 10:00-0400 Body weight 81.47 kg Theron Ball Other [email or web address] Other 11-01-2022 10:00-0400 Diastolic blood pressure 71 mm[Hg] Theron Ball Other [email or web address] Other 11-01-2022 10:00-0400 Respiratory rate 12 /min Theron Ball Other [email or web address] Other 11-01-2022 10:00-0400 Systolic blood pressure 124 mm[Hg] Theron Ball Other [email or web address] Other 10-03-2022 13:45-0400 Body height 177.8 cm Theron Ball Other [email or web address] Other 10-03-2022 13:45-0400 Body mass index (BMI) [Ratio] 26.23 kg/m2 Theron Ball Other [email or web address] Other 10-03-2022 13:45-0400 Body weight 82.92 kg Theron Ball Other [email or web address] Other 10-03-2022 13:45-0400 Diastolic blood pressure 76 mm[Hg] Theron Ball Other [email or web address] Other 10-03-2022 13:45-0400 Respiratory rate 12 /min Theron Ball Other [email or web address] Other 10-03-2022 13:45-0400 Systolic blood pressure 160 mm[Hg] Theron Ball Other [email or web address] Other 11-20-2021 12:31-0400 Blood Pressure Location Tom ARGUETA [facility] 11-20-2021 12:31-0400 Diastolic blood pressure 80 mm[Hg] Tom ARGUETA [facility] 11-20-2021 12:31-0400 Heart rate 74 /min Tom ARGUETA [facility] 11-20-2021 12:31-0400 Respiratory rate 16 /min Tom ARGUETA [facility] 11-20-2021 12:31-0400 Systolic blood pressure 133 mm[Hg] Tom ARGUETA [facility] Encounters Encounter Date Encounter Type Care Provider Facility Start: 03-23-2024 End: 03-23-2024 ambulatory Natali Weir MD Facility: [facility] Start: 01-08-2024 ambulatory Chadd BARBOUR Facility : [facility] Start: 01-06-2024 End: 01-06-2024 ambulatory Natali Weir MD Facility: [facility] Start: 01-01-2024 End: 01-01-2024 ambulatory Chadd BARBOUR Facility:CD:[id number] Start: 12-18-2023 End: 12-18-2023 ambulatory Chadd BARBOUR Facility: [facility] Start: 12-18-2023 End: 12-18-2023 Patient encounter procedure Chadd BARBOUR [facility] Start: 12-16-2023 End: 12-16-2023 ambulatory Natali Weir MD Facility: [facility] Start: 12-02-2023 End: 12-02-2023 ambulatory Natali Weir MD Facility: [facility] Start: 11-18-2023 End: 11-18-2023 ambulatory Natali Weir MD Facility: [facility] Start: 11-05-2023 End: 11-05-2023 ambulatory [facility] Work Phone: Start: 11-05-2023 End: 11-05-2023 Patient encounter procedure [facility] Physician [facility] Work Phone: Start: 11-05-2023 Non-patient / Non-visit [facility] Work Phone: Start: 10-01-2023 End: 10-01-2023 ambulatory DOMINGAJEN PRESLEY Facility:[facility] Start: 10-01-2023 End: 10-01-2023 Patient encounter procedure DOMINGA PRESLEY [facility] Start: 09-17-2023 Non-patient / Non-visit [facility] Physician [facility] Work Phone: Start: 04-03-2023 End: 04-03-2023 ambulatory Theron Mendoza Other [email or web address] Other Start: 04-03-2023 Telephone encounter Theron Ball [facility] Start: 04-02-2023 End: 04-02-2023 ambulatory Theron Matt Other [email or web address] Other Start: 04-02-2023 Office outpatient vi sit 25 minutes Theron Matt [facility] Start: 04-01-2023 End: 04-01-2023 ambulatory Theron Ball Other [email or web address] Other Start: 04-01-2023 Telephone encounter Theron Ball [facility] Start: 01-07-2023 End: 01-07-2023 ambulatory Theron Ball Other [email or web address] Other Start: 01-07-2023 Telephone encounter Theron Ball [facility] Start: 11-01-2022 End: 11-01-2022 ambulatory Theron Ball Other [email or web address] Other Start: 11-01-2022 Patient encounter procedure Theron Mendoza [facility] Start: 10-03-2022 End: 10-03-2022 ambulatory Theron Mendoza Other [email or web address] Other Start: 10-03-2022 Office outpatient vi sit 15 minutes Theron Matt [facility] Start: 10-03-2022 Telephone encounter Theron Mendoza [facility] Start: 04-30-[address] THERON MENDOZA Facili ty:[facility] Start: 03-29-2022 End: 03-30-[address] THERON MENDOZA Facility:[facility] Start: 11-25-2021 End: 11-26-[address] THERON MENDOZA Facility:[facility] Start: 11-24-2021 End: 11-25-[address] THERON MENDOZA Facility:[facility] Start: 11-22-2021 Adult health examination Theron Matt Other [email or web address] Other Start: 11-20-2021 End: 11-20-2021 Patient encounter procedure Tom ARGUETA [facility] Start: 09-14-2021 End: 09-15-[address] THERON MENDOZA Facility:[facility] Start: 09-10-2017 End: 09-11-2017 Ambulatory DEFAULT PHYSICIAN Facility:[facility] Start: 04-25-2017 End: 04-26-2017 Ambulatory PROVIDER UNKNOWN Facility:[facility] Start: 04-15-2017 End: 04-16-2017 Evaluation and management of inpatient THERON MENDOZA Facility:[facility] Procedures Date Procedure Procedure Detail [...] of knee Tom ARGUETA Cardiac catheterization Andrew leilasantosh CHARLIESantosh Depression screening Rasheed Mendoza Other Operation on heart Tom Kianna MARTINEZ Placement of stent i n cardiac conduit Tom ARGUETA Placement of stent i n coronary artery Chadd BARBOUR Plan of Treatment Date Care Activity Detail Author Start: 10-02-2024 ambulatory Ambulatory Facility:[facility] X[facility] Lumbar spine Views [facility] XR Pelvis 1 or 2 Views [facility] Immunizations Immunization Date Immunization Notes Care Provider Fa marybeth 04-03-2022 influenza virus vaccine, split virus (incl. purified surface antigen) Theron Mendoza Other [facility] [employer] Other 04-03-2022 influenza virus vaccine, unspecified formulation [facility] 04-03-2022 Prevnar 20 Theron Mendoza Other [facility] 03-28-2021 influenza virus vaccine, split virus (incl. purified surface antigen) Theron Mendoza Other [facility] [employer] Other 03-28-2021 influenza virus vaccine, unspecified formulation DOMINGA PRESLEY [facility] 04-03-2018 diphtheria, tetanus toxoids and acellular pertussis vaccine, unspecified formulation Theron Mendoza Other [facility] pneumococcal Conjuga te, unspecified formulation; Translations: [Need for prophylactic vaccination against Streptococcus pneumoniae (pneumococcus)] Theron Mendoza Other [facility] [employer] Other Payers Date Payer Category Payer Private Health Insurance 2016 Unknown 1959 Medicare [id number] 1959 Private Health Insurance [id number] 1959 Self-pay [id number] 1950 Unknown [id number] 2.16.84 [id number] 1950 Unknown [id number] 2.16.84 0.1.480470.3.579.2.593 1951 Unknown [id number] 2.16.84 0.1.351217.3.579.2.593 1951 Unknown [id number] 2.16.84 0.1.421965.3.579.2.593 1951 Unknown [id number] 2.16.84 0.1.331138.3.579.2.593 1951 Unknown [id number] 2.16.8 40.1.845927.3.579.2.727 1950 Unknown [id number] 2.16.8 40.1.370855.3.579.2.727 1951 Unknown [id number] 2.16.8 40.1.133148.3.579.2.727 1951 Unknown [id number] 2.16.8 40.1.984738.3.579.2.727 1951 Unknown [id number] 2.16.8 40.1.808436.3.579.2.727 1951 Unknown [id number] 2.16. 840.1.962250.3.579.2.196 1950 Unknown [id number] 2.16. 840.1.357585.3.579.2.196 1951 Unknown [id number] 2.16. 840.1.987399.3.579.2.196 1950 Unknown [id number] 2.16. 840.1.230903.3.579.2.196 1950 Unknown [id number] 2.16. [id number] Medicare [id number] Social History Date Type Detail Facility Start: 04-10-2021 End: 12-18-2023 Tobacco smoking status Ex-smoker (finding) [facility] Sex Assigned At Male [facility] Tobacco smoking status Never [facility] Start: 11-05-2023 Tobacco smoking stat us WAIS Never smoked tobacco (finding) [facility] Start: 1950 Sex Assigned At Male F [facility] Medical Equipment Procedure Code Equipment Code Equipment Origin al Text Equipment Identifier Dates BD Pen Needle Sh ort U/F 31G X 8 MM Start: 01-07-2023 Functional Status Date Assessment Result Facility 12-18-2023 Functional Status N/A [facility] 10-01-2023 Functional Status N/A [facility] 11-20-2021 Functional Status N/A [facility] Clinical Notes 11-20-2021 to 12-18-2023 Note [...] 1 (more content not included)... [facility] Comment on above: Result Comment: Elec tronically Signed By: ANGLE NUÑEZ, Chadd Flor.br\Date and Time Signed: 12/18/23 16:28 EDT 10-01-2023 [...] urethra. Follow these instructions at home: Take ceav-irs-zeexzlk and prescription medicines only as told by [...] provider. Document Revised: 11/01/2021 Document Reviewed: 11/01/2021 [employer] Patient Education 2022 reMail. Follow Up Care 09/17/2022 11:39:15 With:DOMINGA PRESLEY PA-C, URL Address: [address] [place] [address] When: Unknown [facility] Evaluation note Encounter Date Diagnosis Assessment [...] risk for cerebrovascular and cardiovascular disease. 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 (ICD-10 - [...] dyspnea, CP or lightheadedness _update office tomorrow [email or web address] Other 12-04-2023 Evaluation note* Encounter Date Diagnosis Assessment Notes Treatment Notes Treatment Clinical Notes Mar, Primary hypertension (ICD-10 - I10) Mar, Type 2 diabetes mellitus with hyperglycemia (ICD-10 - E11.65) Mar, Mixed hyperlipidemia (ICD-10 - E78.2) Mar, ASHD (arteriosclerotic heart disease) (ICD-10 - I25.10) Mar, High risk medication use (ICD-10 - Z79.899) [email or web address] Other 09-11-2023 Evaluation note* Encounter Date Diagnosis Assessment Notes Treatment Notes Treatment Clinical Notes Dec, Type 2 diabetes mellitus with hyperglycemia (ICD-10 - E11.65) [email or web address] Other 07-06-2023 Evaluation note* Encounter Date Diagnosis [...] risk for cerebrovascular and cardiovascular disease. Oct, care home (current) use of insulin (ICD-10 - Z79.4) Oct, Primary hypertension (ICD-10 - I10) This patient is instructed to consume a healthy, low-fat, low-salt diet. They are also encouraged to continue exercise to achieve/maintain a normal BMI. Oct, Screening PSA (prostate specific antigen) (ICD-10 - Z12.5) Completed w/ , normal [email or web address] Other 06-07-2023 Evaluation note* Encounter Date Diagnosis [...] to achieve/maintain a normal BMI. Avoid NSAIDs [email or web address] Other 07-25-2022 Hospital Discharge instructions Patient Education [...] Follow these instructions at home: Medicines Take vxdi-mhq-yhqqeys and prescription medicines only as told by [...] or the blood stops without treatment. Take tykc-tag-muvthxx and prescription medicines only as told by your health care provider. Drink enough fluid to keep your urine clear or pale yellow. This information is not intended to replace advice given to you by your health care provider. Make sure you discuss any questions you have with your health care provider. Document Released: 04/15/2006 Document Revised: 09/09/2019 Document Reviewed: 05/18/2017 [employer] Patient Education 2020 reMail. Follow Up Care 09/21/2021 10:23:43 With:Tom ARGUETA MD, URL Address: [facility] [address], [place] [address]- [phone] When: Unknown [facility] evaluation + Plan note Future Appointments Appointment Date:11/28/2021 08:45:00 AM Scheduled Provider: Location:[facility] Appointment Type:Urology CALL PAT FT Appointment Date:12/12/2021 10:30:00 AM Scheduled Provider: Location:[facility] Appointment Type:Urology FT Appointment Date:04/13/2022 10:45:00 AM Scheduled Provider:Tom ARGUETA MD Location:[facility] Appointment Type:URO Office Visit [facility] evaluation + Plan note Future Appointments Appointment Date:10/02/2024 10:15:00 AM Scheduled Provider:Tom ARGUETA MD Location:[facility] Appointment Type:URO Office Visit Diagnostic Tests Pending * PSA Total 10/01/23 [facility] evaluation + Plan note Future Appointments Appointment Date:10/02/2024 10:15:00 AM Scheduled Provider:Tom ARGUETA MD Location:[facility] Appointment Type:URO Office Visit [facility] [employer] Other Evaluation note* Diagnosis Onset Date Resolution Status Anemia acute ASHD (arteriosclerotic heart disease) acute GERD (gastroesophageal reflux disease) acute Hypercholesterolemia acute Hypertension acute Type 2 diabetes mellitus with hyperglycemia acute Medicare annual wellness visit, subsequent noneactive Screening for colon cancer n oneactive [facility] Work Phone: History general Narrative - Reported* Type Description Date Medical History ASHD Medical History HTN Medical History Hyperlipidemia Medical History T2DM Medical History GERD Surgical History ANGIOPLASTY Surgical History [facility] PCI/stent RCA and LAD 2007 Surgical History [facility] PCI/stent RCA 2016 Surgical History C PCI/stent OM and LCx 2016 Surgical History C PCI/stent RCA x 2 2017 Surgical History [facility] PCI/stent LAD 2017 Surgical History TURP, TRUS/bx 2009 Surgical History Arthroscopy right knee 2005, 20 14 Surgical History Arthroscopy left knee 2004 Hospitalization History see surgical history [place] [facility] Other Hospital course Narrative No data available for this section [facility] Hospital Discharge instructions No data available for this section [facility] Progress note No data available for this section [facility] reason for referral (narrative)* Reason Referral for interna l derangement right knee Diagnosis 1 Internal derangement of right knee (M23.91) Referral Organization [facility] bhargav Referring Provider First Name Theron Referring [...] Notes MRI right knee to be included [email or web address] Other Summary Purpose Family History No Family [...] content) DATE CREATED AUTHOR 10/16/2017 [facility] DATE CREATED AUTHOR AUTHOR'S ORGANIZ ATION 04/04/2019 [facility] DATE CREATED AUTHOR AUTHOR'S ORGANIZ ATION 04/30/2022 [facility] DATE CREATED AUTHOR AUTHOR'S ORGANIZ ATION 01/08/2024 [facility] DATE CREATED AUTHOR AUTHOR'S ORGANIZ ATION 03/29/2024 [facility] Care Team (unrecognized sect ion and content) [...] Inactive Member Role Status Dates Theron Mendoza DO Primary Care Provide r, Attending Provider Active Start: November 05, 2023 End: November 05, 2023 REASON FOR VISIT (unrecogniz ed section and content) Wants in [facility] [place] InformationNo InformationBlood Work?Check UpUpdate Goals [...] BE BASED ON THE PRIMARY CLINICAL RECORDS. [facility] [employer] [facility]. provides no warranty or guarantee of the accuracy or completeness of information in this document.
--- NOTE | 2024-04-02 10:20 | P.CN_ITS ---
Consult Note: HPI Data of Consult Patient: known to practice within the last 3 years Consult date: 12/02/23 Requesting Physician: Lisa Barcenas NP Primary Care Provider: Theron Lora DO Consult Narrative Reason for consult: low back pain Narrative: 73yom who presents for assessment. persistent pain that radiates into bilateral lower extremities. imaging reviewed, which is significant for moderate to severe spondylosis and stenosis at l4-5 and l5-s1. continues in physical therapy and provider directed home exercises, without lasting benefit. uses tylenol as needed. denies adverse med side effects. previous bilateral l4-5 TFESI and L5-S1 TFESI providing >50% improvement ongoing, noticing increase in bilateral low back hip pain, feels like a deep ache and stiffness. recently underwent bilateral L4/5 L5/S1 MBB #1 with 90% improvement in pain and functional ability immediately following and hours after. cc:: CC: Lisa Barcenas NP Review of Systems ROS Status of ROS 10 or more systems reviewed and unremark able except as noted in history and below Musculoskeletal Reports: back pain PFSH PFSH Medical History (Updated 03/18/24 @ 09:27 by Lisa Barcenas NP) Lymphocytopenia ?D72.810 - Lymphocytopenia (ICD-10) Lumbar spondylolysis ?M43.06 - Spondylolysis, lumbar region (ICD-10) History of nephrolithiasis ?Z87.442 - Personal history of urinary calculi (ICD-10) Epidermal cyst of neck ?L72.0 - Epidermal cyst (ICD-10) Chronic prostatitis ?N41.1 - Chronic prostatitis (ICD-10) BPH with urinary obstruction ?N40.1 - Benign prostatic hyperplasia with lower urinary tract symptoms (ICD- 10) ?N13.8 - Other obstructive and reflux uropathy (ICD-10) Anemia ?D64.9 - Anemia, unspecified (ICD-10) Coronary artery disease ?I25.10 - Atherosclerotic heart disease of [place] coronary artery without angina pectoris (ICD-10) Osteoarthritis ?M19.90 - Unspecified osteoarthritis, unspecified site (ICD-10) Acid reflux ?K21.9 - Gastro-esophageal reflux disease without esophagitis (ICD-10) Diabetes ?E11.9 - Type 2 diabetes mellitus without complications (ICD-10) High cholesterol ?E78.00 - Pure hypercholesterolemia, unspecified (ICD-10) HTN (hypertension) ?I10 - Essential (primary) hypertension (ICD-10) Myocardial infarct ?I21.9 - Acute myocardial infarction, unspecified (ICD-10) Surgical History History of arthroscopy of knee ?Z98.890 - Other specified postprocedural states (ICD-10) History of cardiac catheterization ?Z98.890 - Other specified postprocedural states (ICD-10) History of prostate biopsy ?Z98.890 - Other specified postprocedural states (ICD-10) History of transurethral resection of prostate ?Z98.890 - Other specified postprocedural states (ICD-10) ?Z90.79 - Acquired absence of other genital organ(s) (ICD-10) History of colonoscopy ?Z98.890 - Other specified postprocedural states (ICD-10) History of cystoscopy ?Z98.890 - Other specified postprocedural states (ICD-10) History of heart artery stent ?Z95.5 - Presence of coronary angioplasty implant and graft (ICD-10) Family History Other Family history of hypertension Heart disease Social History Within the past year, how often did you have a drink containing alcohol: monthly or less Smoking status: Former smoker Non-prescribed substance use: denies use 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 Highest level of school completed/degree received: some college, no degree Meds Home Medications and Allergies Home Medications ?Medication ?Instructions ?Recorded ?Confirmed ?Type aspirin 81 mg capsule 81 mg PO DAILY 11/18/23 03/23/24 History atenolol 25 mg tablet 25 mg PO Q24H 11/18/23 03/23/24 History atorvastatin 80 mg tablet 80 mg PO DAILY 11/18/23 03/23/24 History clopidogrel 75 mg tablet 75 mg PO DAILY 11/18/23 03/23/24 History insulin glargine 100 unit/mL (3 50 unit subcut DAILY 11/18/23 03/23/24 History mL) subcutaneous pen (Lantus Solostar U-100 Insulin) pantoprazole 40 mg tablet,delayed 40 mg PO DAILY 11/18/23 03/23/24 History release pioglitazone 15 mg tablet 15 mg PO DAILY 11/18/23 03/23/24 History baclofen 10 mg tablet 10 mg PO TID 03/18/24 03/23/24 History Allergies Allergy/AdvReac Type Severity Reaction Status Date / Time metformin AdvReac Diarrhea Verified 03/23/24 10:42 Exam Narrative Exam Narrative: Psych-alert and oriented x 3. Attentive and appropriate, constitutionally normal, displays normal mood and affect per situation. There are no obvious deficits in memory, reasoning, or intellect.? Skin-no obvious rashes, bruising, erythema noted to the patient's area of pain.? Extremities- extremities are warm with minimal edema and palpable pulses. Lumbar-tenderness to palpation noted in the lumbar spine and paraspinal musculature. Pain is elicited with flexion, extension, and lateral rotation of the lumbar spine. Range of motion is diminished with these motions. Facet loading maneuvers are positive. Strength-noted to be unremarkable Sensory-no notable sensory deficits in the bilateral lower extremities to touch or pinprick in all dermatomal distributions Coordination remains intact.? Gait remains non-antalgic. Results Additional Findings Additional findings: If on a controlled substance or opioids, I have checked an [place] report on this patient and there are no aberrancies noted in the prescribing history.??If on a controlled substance or opioid a drug screen was completed and reviewed within the last year, and if there has not been a drug screen completed we ordered one today to monitor higher risk, state monitored pain medication use. As part of providing excellent, safe, comprehensive care, the following was completed at our patient's visit: 1. A medication reconciliation and review to ensure accurate knowledge of current/active medications, including asking our patients to inform us about any [id number] medications or herbal remedies/nutritional suppleme nts/alternative remedies. 2. A review to specifically ensure our patients have had annual screening for screening for depression, screening for tobacco use, and screening for unhealthy alcohol use. For concerning screenings had a discussion with the patient, provided patient education, and recommended follow-up with primary care provider when appropriate. If patient noted with a risk of falling, they received education on strength, gait, and balance training to prevent future risk of falling. Assessment and Plan Assessment and Plan (1) Lumbar spondylosis: (2) Lumbar stenosis with neurogenic claudication: (3) Myalgia: Plan bilateral L4-5 L5-S1 MBB x2 working towards RFA continue HEP as tolerated continue baclofen 5-10mg TID PRN pain/spasms f/u after each injection
== END 2024-04-02 10:00 | disposition home or self-care (01) ==
LOC: PM 09:59
PROVIDERS: PCP Internal Medicine; Visit Provider Nurse Practitioner
DX: M47.816 Spondylosis without myelopathy or radiculopathy, lumbar region (principal); M48.062 Spinal stenosis, lumbar region with neurogenic claudication; M79.18 Myalgia, other site
CPT/HCPCS: G0463

== ENCOUNTER 2024-04-08 07:13 | Outpatient (OUT) | payer MEDICARE, OTHER, SELFPAY ==
--- OUTSIDE RECORDS SUMMARY | 2024-04-08 07:17 | XMS_ITS | CCD ---
Author Organization [facility] Care Team Providers Care Interactive Producer Name Role Phone THERON MENDOZA Unavailable Unavailable TINO GUNDERSON Unavailable Unavailable RACHELL, [place] GREGORIO Unavailable Unavailable [place], [place] AM Unavailable Unavailable [facility] Unavailable Unavailable UNKNOWN, PROVIDER Unavailable Unavailable UNKNOWN, [...] Date of Onset Reaction(s) Facility (1 source) 26039,00; Translations: [98032,00] Propensity to adverse reactions (disorder) 9 [facility] Repository (12 sources) metFORMIN; Translations: [metFORMIN] Drug Allergy diarrhea, Unknown [facility] Repository (3 sources) patient allergy list reviewed by nurse or physicia Propensity to adverse reactions Comment:Done XDC Other (1 source) No Known Medication Allergies; Translations: [No Known Medication Allergies] Propensity to adverse reactions (disorder) [facility] Repository Medications Current Medications Medication Drug Class(es) [...] procedure, # 2 cap(s), Refills(s) 0, Pharmacy: [facility]/pharmacy #[id number], 177, cm, 11/20/21 [...] disease (20 sources) Atherosclerotic heart disease of [place] coronary artery with unstable angina pectoris; Translations: [Atherosclerotic heart disease of [place] coronary artery without angina pectoris] Onset: 08-25-2013 [...] Onset: 09-18-2013 Chronic Other aftercare (6 sources) senior care (current) use of insulin; Translations: [senior care (current) use of antithrombotics/antip latelets] Onset: 04-15-2017 Episodic Other aftercare (8 sources) Long-term current use of insulin; Translations: [senior care (current) use of insulin] Episodic Other aftercare (1 source) Other family resource specialist (current) drug therapy Episodic Other gastrointestinal disorders [...] NUÑEZ, Tom Cohen Where: [facility] [address] [address]- Medications What How Much When Instructions Unchanged [...] us for your care. Normal [facility] Cholesterol in LDL Calc [Mas s/Vol]on 11-05-2023 Cholesterol in LDL [Mass/Vol] 42.0 mg/dL [facility] Comment on above: <100 mg/dl [id number] mg/dl NEAR OR ABOVE [id number] mg/dl BORDERLINE [id number] mg/dl HIGH>190 mg/dl VERY HIGH Cholesterol in VLDL Calc [Ma ss/Vol]on 11-05-2023 Cholesterol in VLDL [Mass/Vol] 35.6 mg/dL [facility] Estimated glomerular filtrat ion rate (GFR) non- Americanon 11-05-2023 GFR/1.73 sq M.predicted among non-blacks MDRD (S/P/Bld) [Vol rate/Area] mL/min/{1.73_m2} >=60 [facility] Globulin Calc (S) [Mass/Vol] on 11-05-2023 Globulin (S) [Mass/Vol] 3.3 g/dL [facility] Glucose mean value [Mass/vol ume] in Blood Estimated from glycated hemoglobinon 11-05-2023 Average glucose Estimated from glycated hemoglobin (Bld) [Mass/Vol] 143 mg/dL [facility] Laboratory - Chemistry and C hemistry - challengeon 11-05-2023 Albumin [Mass/Vol] 4.0 g/dL 3.4-5.0 [facility] ALP [Catalytic activity/Vol] 74 U/L 46-116 [facility] ALT [Catalytic activity/Vol] 48 U/L 16-63 [facility] AST [Catalytic activity/Vol] 34 U/L 15-37 [facility] Bilirubin [Mass/Vol] 0.9 mg/dL 0.2-1.0 [facility] Calcium [Mass/Vol] 8.6 mg/dL 8.5-10.1 [facility] Chloride [Moles/Vol] 103 mmol/L 98-107 [facility] Cholesterol [Mass/Vol] 119 mg/dL <=200 [facility] Cholesterol in HDL [Mass/Vol] 42 mg/dL 40-60 [facility] Comment on above: > or =60 mg/dl - LOW CARDIOVASCULAR RISK <40 mg/dl - HIGH CARDIOVASCULAR RISK CO2 [Moles/Vol] 28.3 mmol/L 21.0-32.0 [facility] Creatinine [Mass/Vol] 1.10 mg/dL 0.70-1.30 [facility] GFR/1.73 sq M.predicted MDRD (S/P/Bld) [Vol rate/Area] mL/min/{1.73_m2} >=60 [facility] Glucose [Mass/Vol] 139 mg/dL High 74-106 [facility] Potassium [Moles/Vol] 4.1 mmol/L 3.5-5.1 [facility] Protein [Mass/Vol] 7.3 g/dL 6.4-8.2 [facility] Sodium [Moles/Vol] 141 mmol/L 136-145 [facility] Triglyceride [Mass/Vol] 178 mg/dL High <=150 [facility] Urea nitrogen [Mass/Vol] 21.0 mg/dL High 7.0-18.0 [facility] Urea nitrogen/Creatin ine [Mass ratio] 19.1 mg/mg [facility] Laboratory - Hematology and Cell countson 11-05-2023 HbA1c (Bld) [Mass fraction] 6.6 % High 4.5-6.2 [facility] Comment on above: ADA RECOMMENDED LIMIT 4.0 - 6.0ADA THERA PEUTIC TARGET < 7.0ACTION SUGGESTED> 7.0 Microalbumin [Mass/volume] i n Urineon 11-05-2023 Albumin DL <= 20 mg/L (U) [Mass/Vol] 3.4 mg/dL <=30.0 [facility] Serum or plasma albumin/glob ulin mass ratioon 11-05-2023 Albumin/Globulin [Mass ratio] 1.2 {ratio} [facility] Serum or plasma anion gap de terminationon 11-05-2023 Anion gap [Moles/Vol] 13.8 mmol/L [facility] Serum or plasma total choles terol/high density lipoprotein (HDL) cholesterol mass aquiles 11-05-2023 Cholesterol.tota l/Cholesterol in HDL [Mass ratio] 2.8 {ratio} [facility] Comment on above: 3.3 - 4.4 LOW RISK4.4 - 7.1 AVERAGE RISK 7.1 - 11.0 MODERATE RISK>11.0 HIGH RISK Screenson 10-02-2023 Screens [id number]#1.00TIFF Normal [facility] Screens [id number]#[id number] Normal [facility] Ambulatory Visit Summaryon 0 10-01-2023 Ambulatory Visit [...] NUÑEZ, Tom Cohen Where: [facility] Patient Educationon 10-01-19 Patient Education [...] Follow these instructions at home: ? Take qzmm-zpy-oejbzhc and prescription medicines only as told by [...] (more content not included)... Normal [facility] Urology Office/Clinic Noteon 10-01-2023 Urology Office/Clinic Note [...] Contact Information SAKINA RANDALL, DOMINGA Multani, URL [address] [place] [address] Additional Instructions: 1 yr PSA Patient Education [...] (more content not included)... Normal [facility] Comment on above: Result Comment: Electronically Signed By : DOMINGA PRESLEY PA-C\.br\Date and Time Signed: 10/01/23 13:08 EDT\.br\Electronically Co-Signed By: Trish Marcus\.br\Date and Time Co-Signed: 10/01/23 13:03 EDT Lab Reportson 09-18-2023 Lab Reports [id number]#1.00TIFF [facility] RAD - Ultrasound Reporton RAD - Ultrasound Report [id number]#1.00TIFF Normal [facility] No Panel Informationon 09-16 Free Prostate Specific Antigen 0.78 ng/mL N/A [facility] Comment on above: [place] ECLIA methodology. Prostate Specific Antigen Total 1.9 ng/mL 0.0-4.0 [facility] Comment on above: [place] ECLIA methodology.According to the [place] [employer], Serum PSAshould decrease and remain [...] PSA/Total PSA [Mass fraction] 41.1 % . [facility] Comment on above: The table [...] any other population of men.Performed at: - Lab[address] [id number] Director: Guanakito Cota PhD, Phone: [phone] Reminderson 08-22-2023 Reminders - From: Sade Kilgore [...] appt. LM on VM informing pt that [facility] will be reaching out to get MINESH scheduled. Appt 09/20/23 to review results. Order & demo's faxed to the [facility] CS. MINESH scheduled 09/17/23 @ [facility] Normal [facility] GLYCOHEMOGLOBIN A1Con 2021 ADA RECOMMENDATION SEE BELOW Normal [facility] Comment on above: Result Comment: ADA RECOMMENDED LIMIT 4. 0 - 6.0 ADA THERAPEUTIC TARGET < 7.0 ACTION SUGGESTED > 7.0 Performed By: #### A 1C #### [facility] [address] [place], [place] [address] Dr. Yara Chavez Glucose [Mass/Vol] 166 mg/dL Normal [facility] Comment on above: Performed By: #### A1C #### [facility] [address] [place], [place] [address] Dr. Yara Chavez HbA1c (Bld) [Mass fraction] 7.4 % Critically high 4.5-6.2 [facility] Comment on above: Performed By: #### A1C #### [facility] [address] [place], [place] [address] ABD/PELV W CONon [...] PARAS SOMMERS Date: 2021-11-26 02:01 Normal [facility] CBC AUTO DIFFon 11-24-2021 BASO # 0.0 103/ul Normal 0.0-0.1 [facility] Comment on above: Performed By: #### CBC #### [facility] [address] [place] [address] Dr. Yara Chavez Basophils/100 WBC (Bld) 0.7 % Normal 0.2-2.0 [facility] Comment on above: Performed By: #### CBC #### [facility] [address] [place] [address] Dr. Yara Chavez EO # 0.0 103/ul Normal 0.0-0.7 [facility] Comment on above: Performed By: #### CBC #### [facility] [address] [place] [address] [address] Yara Chavez Eosinophils/100 WBC (Bld) 1.0 % Normal 0.9-7.0 [facility] Comment on above: Performed By: #### CBC #### [facility] [address] [place] [address] [address] Yara Chavez Erythrocyte distribution width (RBC) [Ratio] 14.7 % Normal 11.0-15.0 [facility] Comment on above: Performed By: #### CBC #### [facility] [address] [place] [address] Dr. Yara Chavez Hematocrit (Bld) [Volume fraction] 38.7 % Critically low 42.0-54.0 [facility] Comment on above: Performed By: #### CBC #### [facility] [address] [place] [address] Dr. Yara Chavez Hemoglobin (Bld) [Mass/Vol] 12.3 g/dL Critically low 14.0-18.0 [facility] Comment on above: Performed By: #### CBC #### [facility] [address] [place] [address] Dr. Yara Chavez IG # 0.01 10e3/ul Normal 0.00-0.03 [facility] Comment on above: Performed By: #### CBC #### [facility] [address] [place] [address] Dr. Yara Chavez IG % 0.3 % Normal 0.0-0.5 [facility] Comment on above: Performed By: #### CBC #### [facility] [address] [place] [address] Dr. Yara Chavez LYMPH # 1.1 103/ul Critically low 1.2-3.8 [facility] Comment on above: Performed By: #### CBC #### [facility] [address] [place] [address] Dr. Yara Chavez Lymphocytes/100 WBC (Bld) 36.1 % Normal 20.5-60.0 [facility] Comment on above: Performed By: #### CBC #### [facility] [address] [place] [address] Dr. Yara Chavez MANUAL DIFF REQ NO Normal [facility] Comment on above: Performed By: #### CBC #### [facility] [address] [place] [address] Dr. Yara Chavez MCH (RBC) [Entitic mass] 28.0 pg Normal 25.9-34.0 [facility] Comment on above: Performed By: #### CBC #### [facility] [address] [place] [address] Dr. Yara Chavez MCHC (RBC) [Mass/Vol] 31.8 g/dL Normal 29.9-35.2 [facility] Comment on above: Performed By: #### CBC #### [facility] [address] [place] [address] [address] Yara Chavez MCV (RBC) [Entitic vol] 88.2 fL Normal 80.0-94.0 [facility] Comment on above: Performed By: #### CBC #### [facility] [address] [place] [address] [address] Yara Chavez MONO # 0.3 103/ul Normal 0.3-0.8 [facility] Comment on above: Performed By: #### CBC #### [facility] [address] [place] [address] [address] Yara Chavez Monocytes/100 WBC (Bld) 9.5 % Normal 1.7-12.0 [facility] Comment on above: Performed By: #### CBC #### [facility] [address] [place] [address] Dr. Yara Chavez NEUT # 1.5 103/ul Normal 1.4-6.5 [facility] Comment on above: Performed By: #### CBC #### [facility] [address] [place] [address] Dr. Yara Chavez Neutrophils/100 WBC (Bld) 52.4 % Normal 43.0-75.0 [facility] Comment on above: Performed By: #### CBC #### [facility] [address] [place] [address] Dr. Yara Chavez Platelet mean volume (Bld) [Entitic vol] 10.1 fL Normal 9.5-13.5 [facility] Comment on above: Performed By: #### CBC #### [facility] [address] [place] [address] Dr. Yara Chavez PLT 195 103/ul Normal 150-450 [facility] Comment on above: Performed By: #### CBC #### [facility] [address] [place] [address] Dr. Yara Chavez RBC 4.39 106/ul Critically low 4.70-6.10 [facility] Comment on above: Performed By: #### CBC #### [facility] [address] [place] [address] Dr. Yara Chavez WBC 2.9 103/ul Critically low 4.0-11.0 [facility] Comment on above: Performed By: #### CBC #### [facility] [address] [place] [address] [address] Yara Chavez LIPID PROFILEon 11-24-2021 CHOL-HDL RATIO NORM SEE BELOW Normal [facility] Comment on above: Result Comment: 3.3 - 4.4 LOW RISK 4.4 - 7.1 AVERAGE RISK 7.1 - 11.0 MODERATE RISK >11.0 HIGH RISK Performed By: #### A LT, BMP, LIPID #### [facility] [address] [place] [address] [address] Yara Chavez Cholesterol [Mass/Vol] 124 mg/dL Normal <=200 [facility] Comment on above: Performed By: #### ALT, BMP, LIPID #### [facility] [address] [place] [address] [address] Yara Chavez Cholesterol in HDL [Mass/Vol] 41 mg/dL Normal 40-60 [facility] Comment on above: Performed By: #### ALT, BMP, LIPID #### [facility] [address] [place] [address] [address] Yara Chavez Cholesterol in LDL [Mass/Vol] 56.8 mg/dL Normal [facility] Comment on above: Performed By: #### ALT, BMP, LIPID #### [facility] [address] [place] [address] [address] Yara Chavez Cholesterol.tota l/Cholesterol in HDL [Mass ratio] 3.0 {ratio} Normal [facility] Comment on above: Performed By: #### ALT, BMP, LIPID #### [facility] [address] [place] [address] [address] Yara Chavez HDL NORMAL > or = 60 mg/dl - LO W CARDIOVASCULAR RISK <40 mg/dl - HIGH CARDIOVASCULAR RISK Normal [facility] Comment on above: Performed By: #### ALT, BMP, LIPID #### [facility] [address] [place] [address] [address] Yara Chavez LDL CALC NORMAL SEE BELOW Normal [facility] Comment on above: Result Comment: <100 mg/dl OPTIMAL 100 - 129 mg/dl NEAR OR ABOVE OPTIMAL 130 - 159 mg/dl BORDERLINE HIGH 160 - 189 mg/dl HIGH >190 mg/dl VERY HIGH Performed By: #### A LT, BMP, LIPID #### [facility] [address] [place] [address] Dr. Yara Chavez Triglyceride [Mass/Vol] 131 mg/dL Normal <=150 [facility] Comment on above: Performed By: #### ALT, BMP, LIPID #### [facility] [address] [place] [address] Dr. Yara Chavez VLDL CALC 26.2 mg/dL Normal [facility] Comment on above: Performed By: #### ALT, BMP, LIPID #### [facility] [address] [place] [address] Dr. Yara Chavez MICROALBUMIN, RAND URon 07- mALB 1.4 mg/L Normal <=30.0 [facility] Comment on above: Performed By: #### MALBR #### [facility] [address] [place] [address] Dr. Yara Chavez PROF CHEM 8 (BAS METB)on Anion gap [Moles/Vol] 10.1 mmol/L Normal [facility] Comment on above: Performed By: #### ALT, BMP, LIPID #### [facility] [address] [place] [address] Dr. Yara Chavez Calcium [Mass/Vol] 9.0 mg/dL Normal 8.5-10.1 [facility] Comment on above: Performed By: #### ALT, BMP, LIPID #### [facility] [address] [place] [address] Dr. Yara Chavez Chloride [Moles/Vol] 105 mmol/L Normal 98-107 [facility] Comment on above: Performed By: #### ALT, BMP, LIPID #### [facility] [address] [place] [address] Dr. Yara Chavez CO2 [Moles/Vol] 31.3 mmol/L Normal 21.0-32.0 [facility] Comment on above: Performed By: #### ALT, BMP, LIPID #### [facility] [address] [place] [address] [address] Yara Chavez Creatinine [Mass/Vol] 1.24 mg/dL Normal 0.70-1.30 [facility] Comment on above: Performed By: #### ALT, BMP, LIPID #### [facility] [address] [place] [address] [address] Yara Chavez EGFR-AF TANZANIAN >60 Normal >=60 [facility] Comment on above: Performed By: #### ALT, BMP, LIPID #### [facility] [address] [place] [address] [address] Yara Chavez EGFR-NON AF TANZANIAN 58 mL/min/1.73m2 Critically low >=60 [facility] Comment on above: Performed By: #### ALT, BMP, LIPID #### [facility] [address] [place] [address] [address] Yara Chavez Glucose [Mass/Vol] 102 mg/dL Normal 74-106 [facility] Comment on above: Performed By: #### ALT, BMP, LIPID #### [facility] [address] [place] [address] [address] Yara Chavez Potassium [Moles/Vol] 4.4 mmol/L Normal 3.5-5.1 [facility] Comment on above: Performed By: #### ALT, BMP, LIPID #### [facility] [address] [place] [address] [address] Yara Chavez Sodium [Moles/Vol] 142 mmol/L Normal 136-145 [facility] Comment on above: Performed By: #### ALT, BMP, LIPID #### [facility] [address] [place] [address] [address] Yara Chavez Urea nitrogen [Mass/Vol] 22.0 mg/dL Critically high 7.0-18.0 [facility] Comment on above: Performed By: #### ALT, BMP, LIPID #### [facility] [address] [place] [address] [address] Yara Chavez Urea nitrogen/Creatin ine [Mass ratio] 17.7 mg/mg Normal [facility] Comment on above: Performed By: #### ALT, BMP, LIPID #### [facility] [address] [place] [address] Dr. Yara Chavez SGPTon 11-24-2021 ALT [Catalytic activity/Vol] 48 U/L Normal 16-63 [facility] Comment on above: Performed By: #### ALT, BMP, LIPID #### [facility] [address] [place] [address] Dr. Yara Chavez GLYCOHEMOGLOBIN A1Con 2021 ADA RECOMMENDATION SEE BELOW Normal [facility] Comment on above: Result Comment: ADA RECOMMENDED LIMIT 4. 0 - 6.0 ADA THERAPEUTIC TARGET < 7.0 ACTION SUGGESTED > 7.0 Performed By: #### A 1C #### [facility] [address] [place] [address] Dr. Yara Chavez Glucose [Mass/Vol] 169 mg/dL Normal [facility] Comment on above: Performed By: #### A1C #### [facility] [address] [place] [address] Dr. Yara Chavez HbA1c (Bld) [Mass fraction] 7.5 % Critically high 4.5-6.2 [facility] Comment on above: Performed By: #### A1C #### [facility] [address] [place] [address] Dr. Yara Chavez PROF CHEM 8 (BAS METB)on Anion gap [Moles/Vol] 12.0 mmol/L Normal [facility] Comment on above: Performed By: #### BMP #### [facility] [address] [place] [address] Dr. Yara Chavez Calcium [Mass/Vol] 8.7 mg/dL Normal 8.5-10.1 [facility] Comment on above: Performed By: #### BMP #### [facility] [address] [place] [address] Dr. Yara Chavez Chloride [Moles/Vol] 103 mmol/L Normal 98-107 [facility] Comment on above: Performed By: #### BMP #### [facility] [address] [place] [address] Dr. Yara Chavez CO2 [Moles/Vol] 29.1 mmol/L Normal 21.0-32.0 [facility] Comment on above: Performed By: #### BMP #### [facility] [address] [place] [address] [address] Yara Chavez Creatinine [Mass/Vol] 1.17 mg/dL Normal 0.70-1.30 [facility] Comment on above: Performed By: #### BMP #### [facility] [address] [place] [address] [address] Yara Chavez EGFR-AF TANZANIAN >60 Normal >=60 [facility] Comment on above: Performed By: #### BMP #### [facility] [address] [place] [address] Dr. Yara Chavez EGFR-NON AF TANZANIAN >60 Normal >=60 [facility] Comment on above: Performed By: #### BMP #### [facility] [address] [place] [address] Dr. Yara Chavez Glucose [Mass/Vol] 144 mg/dL Critically high 74-106 [facility] Comment on above: Performed By: #### BMP #### [facility] [address] [place] [address] [address] Yara Chavez Potassium [Moles/Vol] 4.1 mmol/L Normal 3.5-5.1 [facility] Comment on above: Performed By: #### BMP #### [facility] [address] [place] [address] Dr. Yara Chavez Sodium [Moles/Vol] 140 mmol/L Normal 136-145 [facility] Comment on above: Performed By: #### BMP #### [facility] [address] [place] [address] Dr. Yara Chavez Urea nitrogen [Mass/Vol] 18.0 mg/dL Normal 7.0-18.0 [facility] Comment on above: Performed By: #### BMP #### [facility] [address] [place] [address] [address] Yara Chavez Urea nitrogen/Creatin ine [Mass ratio] 15.4 mg/mg Normal [facility] Comment on above: Performed By: #### BMP #### [facility] [address] [place] [address] Dr. Yara Chavez CNOVSPon 04-02-2019 CNOVSP Visit (SP) Office ( [facility]) DUKELISA CORONA ([id number]) 1950 M Date Time Provider Department 04/02/19 11:15 AM THAIS HEBERT During your visit today, we recorded the following information about you: Temperature Pulse Respiration Blood pressure 98.1 degrees 72/minute 16/minute 131/69 Weight Height 80.5 kg 1.778 m Thais Hebert DO 04/03/2019 1:15 PM Signed PATIENT NAME: Lisa Lugo REFERRING PHYSICIAN: Theron Mendoza MD ([facility]) [address] [place] [address] PRIMARY CARE PHYSICIAN: Theron Mendoza MD CHIEF [...] PANEL - CBC + DIFF (FOR REMOTE [facility] USE) - IRON + TIBC - FERRITIN BLD - VITAMIN B12 BLOOD - FOLATE SERUM - METHYLMALONIC ACID - HEP REMOTE PANEL BL - SED RATE [facility] Return labs today. f/u 6 mos. . [...] questions satisfactorily.. Francois Hebert D.O. Medical Oncologist [facility] [place], [place] Referring Provider: THERON MENDOZA [[id number]] Allergies As of Date: 04/02/2019 (No Known Allergies) Date Reviewed: 04/02/2019 Reviewed by: Dorene Germain - Fully Assessed Reason for Visit: abdnormal lab [Other] Cmt: new patient consultation Primary Visit Diagnosis:Leukopenia, unspecified type [D72.819] Other Visit Diagnosis:Abnormal finding of blood chemistry, unspecified [R79.9] Order(s):PROTEIN ELECTROPHORESIS W/INTERP [SQSEPG] Order #: [id number] FUTURE MONOCLONAL PROTEIN, SERUM (BLOOD) [SQSERMPA] Order #: [id number] FUTURE IMMUNOGLOBULINS SHANIA [SQSERIMM] Order #: [id number] FUTURE LD LACTATE DEHYDRO [SQLD6] Order #: [id number] FUTURE COMP METABOLIC PANEL [SQCMP] Order #: [id number] FUTURE CBC + DIFF (FOR REMOTE C USE) [SQRCBCDF] Order #: [id number] FUTURE IRON + TIBC [SQIRON] Order #: [id number] FUTURE FERRITIN BLD [SQFERR] Order #: [id number] FUTURE VITAMIN B12 BLOOD [SQB12] Order #: [id number] FUTURE FOLATE SERUM [SQSERFOL] Order #: [id number] FUTURE METHYLMALONIC ACID [SQMMA] Order #: [id number] FUTURE HEP REMOTE PANEL BL [SQHREMOP] Order #: [id number] FUTURE SED RATE WESTERGREN [SQWSR] Order #: [id number] FUTURE Disposition: Return labs today. f/u 6 [...] HEBERT DO on 04/03/19 Normal [facility] Comp Metabolic Panelon 04-02 Albumin [Mass/Vol] 4.4 g/dL Normal 3.9-4.9 [facility] ALP [Catalytic activity/Vol] 102 U/L Normal 38-113 [facility] ALT [Catalytic activity/Vol] 53 U/L Normal 10-54 [facility] Anion gap [Moles/Vol] 13 mmol/L Normal 9-18 [facility] AST [Catalytic activity/Vol] 31 U/L Normal 14-40 [facility] Bilirubin [Mass/Vol] 0.6 mg/dL Normal 0.2-1.3 [facility] Calcium [Mass/Vol] 9.6 mg/dL Normal 8.5-10.2 [facility] Chloride [Moles/Vol] 98 mmol/L Normal 97-105 [facility] CO2 [Moles/Vol] 24 mmol/L Normal 22-30 [facility] Creatinine [Mass/Vol] 0.94 mg/dL Normal 0.73-1.22 [facility] eGFR- Amer. >60 Normal [facility] GFR/1.73 sq M predicted among non-blacks MDRD (S/P/Bld) [Vol rate/Area] mL/min/{1.73_m2} Normal [facility] Comment on above: Result Comment: eGFR [...] [Mass/Vol] 257 mg/dL High 74-99 [facility] Comment on above: Result Comment: The [place] Diabetes As sociation (ADA) provides guidance for [...] Standards of Medical Care in Diabetes 2016, [place] [employer] Association. Diabetes Care. 2016.39(Suppl 1). Potassium [Moles/Vol] 4.8 mmol/L Normal 3.7-5.1 [facility] Protein [Mass/Vol] 7.4 g/dL Normal 6.3-8.0 [facility] Sodium [Moles/Vol] 135 mmol/L Low 136-144 [facility] Urea nitrogen [Mass/Vol] 19 mg/dL Normal 9-24 [facility] Ferritinon 04-02-2019 Ferritin [Mass/Vol] 279.0 ng/mL Normal 30.3-565.7 [facility] Comment on above: Performed By: #### WSR, B12, SERFOL, IRO N, FERR, SERIMM, HREMOP, SERMPA, SEPG, MMA #### [place] [phone] Folate, Serumon 04-02-2019 Folate [Mass/Vol] ng/mL Normal >4.7 [facility] Comment on above: Result Comment: A result of > 20 ng/mL i s not necessarily indicative of a pathologic or treatable condition: it reflects a limitation of the test methodology. Assay reference range: 4.8 to 24.2 ng/mL. Suitable for detection of folate deficiency. Reference: Folate III (Folate III) [package insert V 2.0 Korean]. [facility], [place], [place]: February 2015. Performed By: #### W SR, B12, SERFOL, IRON, FERR, SERIMM, HREMOP, SERMPA, SEPG, MMA #### [place] [phone] Hepatitis Remote Panelon HBsAg Negative Normal Negative [facility] Comment on above: Performed By: #### WSR, B12, SERFOL, IRO N, FERR, SERIMM, HREMOP, SERMPA, SEPG, MMA #### [place] [phone] Hep B Core Ab,Total Negative Normal Negative [facility] Comment on above: Performed By: #### WSR, B12, SERFOL, IRO N, FERR, SERIMM, HREMOP, SERMPA, SEPG, MMA #### [place] [phone] Hepatitis C Ab [place] Negative Normal Negative [facility] Comment on above: Performed By: #### WSR, B12, SERFOL, IRO N, FERR, SERIMM, HREMOP, SERMPA, SEPG, MMA #### [place] [phone] HepB Surface Ab,Qual Negative Normal Negative [facility] Comment on above: Result Comment: NEGATIVE Performed By: #### W SR, B12, SERFOL, IRON, FERR, SERIMM, HREMOP, SERMPA, SEPG, MMA #### [place] [phone] Immunoglobulins GAMon 2018 IgA [Mass/Vol] 323 mg/dL Normal 78-391 [facility] Comment on above: Performed By: #### WSR, B12, SERFOL, IRO N, FERR, SERIMM, HREMOP, SERMPA, SEPG, MMA #### [place] [phone] IgG [Mass/Vol] 981 mg/dL Normal 717-1411 [facility] Comment on above: Performed By: #### WSR, B12, SERFOL, IRO N, FERR, SERIMM, HREMOP, SERMPA, SEPG, MMA #### [place] [phone] IgM [Mass/Vol] 133 mg/dL Normal 53-334 [facility] Comment on above: Performed By: #### WSR, B12, SERFOL, IRO N, FERR, SERIMM, HREMOP, SERMPA, SEPG, MMA #### [place] [phone] Iron and TIBCon 04-02-2019 Iron [Mass/Vol] 80 ug/dL Normal 41-186 [facility] Comment on above: Performed By: #### WSR, B12, SERFOL, IRO N, FERR, SERIMM, HREMOP, SERMPA, SEPG, MMA #### [place] [phone] TIBC 247 ug/dL Normal 232-386 [facility] Comment on above: Performed By: #### WSR, B12, SERFOL, IRO N, FERR, SERIMM, HREMOP, SERMPA, SEPG, MMA #### [facility] [address] [place] [address] Transferrin Saturatn 32 % Normal 15-57 [facility] Comment on above: Performed By: #### WSR, B12, SERFOL, IRO N, FERR, SERIMM, HREMOP, SERMPA, SEPG, MMA #### [place] [address] LDon 04-02-2019 LD 131 U/L Low 135-225 [facility] Comment on above: Performed By: #### WSR, B12, SERFOL, IRO N, FERR, SERIMM, HREMOP, SERMPA, SEPG, MMA #### [place] [address] Methylmalonic Acidon 019 Methylmalonic Acid 232 nmol/L Normal 79-376 [facility] Comment on above: Result Comment: This test was developed and its performance characteristics determined by [facility] [place] ([facility]). It has not been cleared or approved by the FDA. [facility] is regulated under CLIA as qualified to perform high complexity testing. This test is used for clinical purposes. It should not be regarded as investigational or for research. Performed By: #### W SR, B12, SERFOL, IRON, FERR, SERIMM, HREMOP, SERMPA, SEPG, MMA ####[place] [phone] Monclnl Protein, Seron 04-02 K/L Ratio, Serum 1.88 High 0.26-1.65 [facility] Comment on above: Performed By: #### WSR, B12, SERFOL, IRO N, FERR, SERIMM, HREMOP, SERMPA, SEPG, MMA ####[place] [address] [address] [phone] Roberta, Free, Serum 47.1 mg/L High 3.30-19.40 [facility] Comment on above: Result Comment: Test performed by an imm unoturbidimetric assay on Optilite instrument from [facility]. Immunoglobulin free light chain assay results should be interpreted in conjunction with other tests and in correlation with clinical picture. Performed By: #### W SR, B12, SERFOL, IRON, FERR, SERIMM, HREMOP, SERMPA, SEPG, MMA ####[place] [address] [address] [place] [phone] Lambda, Free, Serum 25.0 mg/L Normal 5.7-26.3 [facility] Comment on above: Result Comment: Test performed by an imm unoturbidimetric assay on Optilite instrument from [facility]. Immunoglobulin free light chain assay results should be interpreted in conjunction with other tests and in correlation with clinical picture. Performed By: #### W SR, B12, SERFOL, IRON, FERR, SERIMM, HREMOP, SERMPA, SEPG, MMA ####[place] [address] [address] [place] [phone] MPA Serum IgA 336 mg/dL Normal 78-391 [facility] Comment on above: Performed By: #### WSR, B12, SERFOL, IRO N, FERR, SERIMM, HREMOP, SERMPA, SEPG, MMA ####[place] [phone] [phone] MPA Serum IgG 950 mg/dL Normal 717-1411 [facility] Comment on above: Performed By: #### WSR, B12, SERFOL, IRO N, FERR, SERIMM, HREMOP, SERMPA, SEPG, MMA ####[place] [address] [address] [place] [phone] MPA Serum IgM 136 mg/dL Normal 53-334 [facility] Comment on above: Performed By: #### WSR, B12, SERFOL, IRO N, FERR, SERIMM, HREMOP, SERMPA, SEPG, MMA ####[facility] [place], [place] [phone] Protein [Mass/Vol] No M protein is identified. Normal No M protein is identified . [facility] Comment on above: Performed By: #### WSR, B12, SERFOL, IRO N, FERR, SERIMM, HREMOP, SERMPA, SEPG, MMA ####[place] [phone] [place], [place] [phone] Staff Review Reviewed by Chadd Ackerman MD ([id number]) Normal [facility] Comment on above: Performed By: #### WSR, B12, SERFOL, IRO N, FERR, SERIMM, HREMOP, SERMPA, SEPG, MMA ####[address] [phone] PROGRESSon 04-02-2019 PROGRESS HNO ID: [id number] Author: Thais Hebert Service: ? Author Type: Physician Type: Progress Notes Filed: 04/03/2019 1:15 PM Note Text: PATIENT NAME: Lisa Lugo REFERRING PHYSICIAN: Theron Mendoza MD ([facility]) [address] [facility] [address] PRIMARY CARE PHYSICIAN: Theron Mendoza MD CHIEF [...] PANEL - CBC + DIFF (FOR REMOTE [facility] USE) - IRON + TIBC - FERRITIN [...] questions satisfactorily.. Francois Hebert D.O. Medical Oncologist [facility] [place], [place] Normal [facility] Protein Electrophor.on 04-02 Albumin [Mass/Vol] 3.79 g/dL Normal 3.37-4.23 [facility] Comment on above: Performed By: #### WSR, B12, SERFOL, IRO N, FERR, SERIMM, HREMOP, SERMPA, SEPG, MMA ####[facility] [address] [place], [place] [phone] Alpha 1 Globulin 0.31 gm/dL Normal 0.18-0.31 [facility] Comment on above: Performed By: #### WSR, B12, SERFOL, IRO N, FERR, SERIMM, HREMOP, SERMPA, SEPG, MMA ####[place] [phone] [place] [phone] Alpha 2 Globulin 0.96 gm/dL Normal 0.52-0.97 [facility] Comment on above: Performed By: #### WSR, B12, SERFOL, IRO N, FERR, SERIMM, HREMOP, SERMPA, SEPG, MMA ####[place] [address] [address] [place] [phone] Beta Globulin 1.17 gm/dL Normal 0.84-1.36 [facility] Comment on above: Performed By: #### WSR, B12, SERFOL, IRO N, FERR, SERIMM, HREMOP, SERMPA, SEPG, MMA ####[place] [address] [address] [place] [phone] Gamma Globulin 0.97 gm/dL Normal 0.70-1.44 [facility] Comment on above: Performed By: #### WSR, B12, SERFOL, IRO N, FERR, SERIMM, HREMOP, SERMPA, SEPG, MMA ####[place] [address] [address] [place] [phone] Interpretation SEE COMMENT Normal [facility] Comment on above: Result Comment: No definitive M protein is identified on protein electrophoresis. Performed By: #### W SR, B12, SERFOL, IRON, FERR, SERIMM, HREMOP, SERMPA, SEPG, MMA ####[place] [phone] AveCEv[address] [place] [phone] M Guy Concentratn 0.00 gm/dL Normal 0.00 [facility] Comment on above: Performed By: #### WSR, B12, SERFOL, IRO N, FERR, SERIMM, HREMOP, SERMPA, SEPG, MMA ####[place] [phone], [place] [phone] Protein [Mass/Vol] 7.2 g/dL Normal 6.0-8.4 [facility] Comment on above: Performed By: #### WSR, B12, SERFOL, IRO N, FERR, SERIMM, HREMOP, SERMPA, SEPG, MMA ####[place] [phone], [place] [phone] Protein [Mass/Vol] N/A Normal [facility] Comment on above: Performed By: #### WSR, B12, SERFOL, IRO N, FERR, SERIMM, HREMOP, SERMPA, SEPG, MMA ####[place] [address] [address], [place] [phone] SPE Staff Review Reviewed by Chadd Ackerman MD ([id number]) Normal [facility] Comment on above: Performed By: #### WSR, B12, SERFOL, IRO N, FERR, SERIMM, HREMOP, SERMPA, SEPG, MMA ####[place] [address] [address], [place] [phone] Remote CBCDIF (for [facility] use o nly)on 04-02-2019 Abs Baso <0.03 Normal 0.00-0.10 [facility] Abs [place] 0.48 k/uL Normal 0.00-0.86 [facility] Abs Neut 4.30 k/uL Normal 1.45-7.50 [facility] Basophils/100 WBC (Bld) 0.2 % Normal [facility] Eosinophils (Bld) [#/Vol] 0.04 10*3/uL Normal 0.00-0.45 [facility] Eosinophils/100 WBC (Bld) 0.7 % Normal [facility] Erythrocyte distribution width (RBC) [Ratio] 13.9 % Normal 11.5-15.0 [facility] Hematocrit (Bld) [Volume fraction] 39.6 % Normal 39.0-51.0 [facility] Hemoglobin (Bld) [Mass/Vol] 12.6 g/dL Low 13.0-17.0 [facility] Lymphocytes (Bld) [#/Vol] 0.84 10*3/uL Low 1.00-4.00 [facility] Lymphocytes/100 WBC (Bld) 14.8 % Normal [facility] MCH (RBC) [Entitic mass] 27.4 pG Normal 26.0-34.0 [facility] MCHC (RBC) [Mass/Vol] 31.8 g/dL Normal 30.5-36.0 [facility] MCV (RBC) [Entitic vol] 86.1 fL Normal 80.0-100.0 [facility] Monocytes/100 WBC (Bld) 8.5 % Normal [facility] Neutrophils/100 WBC (Bld) 75.8 % Normal [facility] Platelet mean volume (Bld) [Entitic vol] 9.7 fL Normal 9.0-12.7 [facility] Platelets (Bld) [#/Vol] 243 10*3/uL Normal 150-400 [facility] RBC (Bld) [#/Vol] 4.60 10*6/uL Normal 4.20-6.00 [facility] WBC (Bld) [#/Vol] 5.67 10*3/uL Normal 3.70-11.00 [facility] Sed Rate Westergrenon 2018 Sed Rate Westergren 41 mm/hr High 0-15 [facility] Comment on above: Performed By: #### WSR, B12, SERFOL, IRO N, FERR, SERIMM, HREMOP, SERMPA, SEPG, MMA #### [facility] [employer] [address] [place], [place] [address] Vitamin B12on 04-02-2019 Cobalamin (Vitamin B12) [Mass/Vol] 595 pg/mL Normal 232-1245 [facility] Comment on above: Performed By: #### WSR, B12, SERFOL, IRO N, FERR, SERIMM, HREMOP, SERMPA, SEPG, MMA #### [facility] [address] [place], [place] [address] Cardiovascular Lab Reporton 04-26-2017 Cardiovascular Lab Report [facility] Patient Name: Lisa Lugo [facility] MR #: [id number] Physician: Jenny Parsons M.D.Medicine Service Date: 04/25/2017Division of Birthdate: 2Cardiology Room #: 3CD [id number] [facility] [place], [place] [address]Ntypg Fax Cardiovascular Laboratory ReportINDICATION: Mr. Lisa Lugo is a 66-year-old man, known to havecoronary artery disease status post multiple stenting procedures in [facility]. Recently, he presented with transient ST-segment elevation in thesetting of ongoing chest pain. He underwent cardiac catheterization anddrug-eluting stenting of the distal right coronary artery de rachel stenosisas well as drug-eluting stenting of the proximal right coronary arteryin-stent restenosis. At that time, he was found to have eeje-bcjpert-uowus restenosis in the mid LAD. He is [...] angiography was performedfollowed by upsizing to a 6-Dutch x 11 cm sheath. Heparin wasadministered intravenously and therapeutic ACT confirmed during theprocedure. A 6-Dutch XB 3.5 guiding catheter was advanced and [...] to the [place] wire.Angiography was performed. [place] [employer] [place] 2.5 x 15 mm noncompliantballoon was then [...] 04/25/2017/09:47 A/Jenny Coppola M.D.Date Trans: 04/26/2017 02:28 A/[id number]: Theron Mendoza D.O. [address] [place] [address] A [facility] [phone] Normal [facility] POC GLUCOSE LABon 04-26-2017 Glucose mass conc 99 mg/dL Normal 70-100 [facility] Comment on above: Performed By: #### [id number] ####[facility] [facility].[address] CBC COMPLETE BLOOD COUNTon 1 06-26-2016 Erythrocyte distribution width Auto Ratio (RBC) 14.3 % Normal 11.5-16.9 [facility] Comment on above: Order Comment: Yes: Add to Previous draw if able Performed By: #### 5 0608 ####[facility] [facility].[address] Erythrocytes (RBC) 4.16 mill/mm3 Low 4.30-5.90 [facility] Comment on above: Order Comment: Yes: Add to Previous draw if able Performed By: #### 5 0608 ####[facility] [facility].[address] Hematocrit (HCT) 34.8 % Low 39.0-55.0 [facility] Comment on above: Order Comment: Yes: Add to Previous draw if able Performed By: #### 5 0608 ####[place] [address] [facility].[address] Hemoglobin mass conc (Bld) 11.8 g/dL Low 13.9-16.3 [facility] Comment on above: Order Comment: Yes: Add to Previous draw if able Performed By: #### 5 0608 ####[facility] MCH 28.2 pg Normal 24.0-32.0 [facility] Comment on above: Order Comment: Yes: Add to Previous draw if able Performed By: #### 5 0608 ####[facility] MCHC mass conc (RBC) 33.8 g/dL Normal 32.0-36.0 [facility] Comment on above: Order Comment: Yes: Add to Previous draw if able Performed By: #### 5 0608 ####[facility] [facility].[address] MCV 83.6 fL Normal 80.0-100.0 [facility] Comment on above: Order Comment: Yes: Add to Previous draw if able Performed By: #### 5 0608 ####[facility] [facility].[address] PLAT CNT 198 Thou/mm3 Normal 100-400 [facility] Comment on above: Order Comment: Yes: Add to Previous draw if able Performed By: #### 5 0608 ####[facility] [facility].[address] WBC (Leukocytes) 3.9 Thou/mm3 Low 4.0-10.0 [facility] Comment on above: Order Comment: Yes: Add to Previous draw if able Performed By: #### 5 0608 ####[facility] [facility] POC GLUCOSE LABon 04-25-2017 Glucose mass conc 232 mg/dL High 70-100 [facility] Comment on above: Performed By: #### [address] ####[facility] Glucose mass conc 281 mg/dL High 70-100 [facility] Comment on above: Performed By: #### [address] ####[facility] Discharge Summaryon 04-20-20 Discharge Summary MR#: [id number] [facility]o Admitted: 04/15/2017 [...] history, requiring stentingin the past, presented to [facility] initially with complaints ofrecurrent chest pain at rest. Initial EKG showed minor ST-segment elevationin the inferior leads, which resolved after administration of IV heparinand nitroglycerin. [facility]. Heunderwent left heart catheterization with successful balloon dilatation andstenting of 2 lesions. The patient recovered well postprocedure with nofurther recurrence of chest pain. Right femoral access site healed well.DISCHARGE CONDITION: Stable.DISCHARGE DISPOSITION: Home.DISCHARGE MEDICATIONS: Aspirin 81 mg daily, atenolol 25 mg daily, Jruckuvl285 mg daily, Clopidogrel 75 mg daily, Lantus [...] 04/19/2017/06:17 P/Arely Campos, MDDate Trans: 04/20/2017 07:36 A/[id number]: Theron Mendoza D.O. [address] [place] [phone] Tino Gunderson M.D. [address] [facility] [address] Normal [facility] BASIC METABOLIC PANELon 12- Calcium 9.0 mg/dL Normal 8.6-10.3 [facility] Comment on above: Order Comment: No: Do not add to previou s draw Performed By: #### 1 69, [address] ####[facility] [place] [address], [facility] Chloride 104 mmol/L Normal 98-107 [facility] Comment on above: Order Comment: No: Do not add to previou s draw Performed By: #### 1 0, [address] ####[facility] [place] [address], [facility] CO2 24 mmol/L Normal 21-31 [facility] Comment on above: Order Comment: No: Do not add to previou s draw Performed By: #### 1 0, 98703 ####[facility] [place] [address], [facility] Creatinine 0.94 mg/dL Normal 0.70-1.30 [facility] Comment on above: Order Comment: No: Do not add to previou s draw Performed By: #### 1 69, 713[address] ####[facility] [place] [address], [facility] eGFR (black) mL/min/{1.73_m2} Normal >60 [facility] Comment on above: Order Comment: No: Do not add to previou s draw Performed By: #### 1 69, 392[address] ####[facility] [place] [address], [facility] eGFR (non-black) mL/min/{1.73_m2} Normal >60 Th e [facility] Comment on above: Order Comment: No: Do not add to previou s draw Performed By: #### 1 69, 790[address] ####[facility] [place] [address], [facility] Glucose mass conc 182 mg/dL High 70-100 [facility] Comment on above: Order Comment: No: Do not add to previou s draw Performed By: #### 1 69, ####[facility] [place] [address], [facility] Potassium molar conc 3.9 mmol/L Normal 3.5-5.1 The [facility] Comment on above: Order Comment: No: Do not add to previou s draw Performed By: #### 1 69, ####[facility] [address] [place] [address], [facility] Sodium 138 mmol/L Normal 136-145 [facility] Comment on above: Order Comment: No: Do not add to previou s draw Performed By: #### 1 69, [id number] ####[facility] [place] [place] [address], [facility] Urea nitrogen 18 mg/dL Normal 7-25 [facility] Comment on above: Order Comment: No: Do not add to previou s draw Performed By: #### 1 69, [id number] ####[facility] [place] [facility].[address] CBC COMPLETE BLOOD COUNTon 06-17-2016 Erythrocyte distribution width Auto Ratio (RBC) 14.7 % Normal 11.5-16.9 [facility] Comment on above: Order Comment: No: Do not add to previou s draw Performed By: #### 5 0608 ####[facility] [place] Erythrocytes (RBC) 4.37 mill/mm3 Normal 4.30-5.90 [facility] Comment on above: Order Comment: No: Do not add to previou s draw Performed By: #### 5 0608 ####[facility] [place] Hematocrit (HCT) 36.5 % Low 39.0-55.0 [facility] Comment on above: Order Comment: No: Do not add to previou s draw Performed By: #### 5 0608 ####[facility] [place] [facility].[address] Hemoglobin mass conc (Bld) 12.3 g/dL Low 13.9-16.3 [facility] Comment on above: Order Comment: No: Do not add to previou s draw Performed By: #### 5 0608 ####[facility] [place] [facility].[address] MCH 28.0 pg Normal 24.0-32.0 [facility] Comment on above: Order Comment: No: Do not add to previou s draw Performed By: #### 5 0608 ####[facility] [place] [facility] MCHC mass conc (RBC) 33.5 g/dL Normal 32.0-36.0 [facility] Comment on above: Order Comment: No: Do not add to previou s draw Performed By: #### 5 0608 ####[facility] [place] [facility].[address] MCV 83.5 fL Normal 80.0-100.0 [facility] Comment on above: Order Comment: No: Do not add to previou s draw Performed By: #### 5 0608 ####[facility] [place] [facility].[place], [place] [id number] [place] [address] PLAT CNT 167 Thou/mm3 Normal 100-400 [facility] Comment on above: Order Comment: No: Do not add to previou s draw Performed By: #### 5 0608 ####[facility] [place] WBC (Leukocytes) 4.7 Thou/mm3 Normal 4.0-10.0 [facility] Comment on above: Order Comment: No: Do not add to previou s draw Performed By: #### 5 0608 ####[facility] [place] Cardiovascular Lab Reporton 04-16-2017 Cardiovascular Lab Report [facility] Patient Name: Lisa Lugo [facility] MR #: [id number] Physician: Jenny Parsons M.D.Medicine Service Date: 04/15/2017Division of Birthdate: 2Cardiology Room #: 3AB [id number] [facility] [address]Phone Fax Cardiovascular Laboratory ReportINDICATION: Lisa Lugo is a 66-year-old man, known to have coronaryartery disease, status post multiple stenting procedures in the past, [facility] pain at rest. Heinitially had minor ST elevations in the inferior leads that resolved afteradministration of intravenous heparin and nitroglycerin. Because ofrecurrent chest pain, he was transferred emergently to our incinerator plant laborer fordiagnostic angiography and intervention.PROCEDURE:1. Bilateral selective [...] EMS services. He was placed on the incinerator plant laborer table.Both groin areas were prepped and draped in usual fashion. Usingmicropuncture technique, access in the right common femoral artery wasobtained and the inner cannula was advanced. Limited femoral angiographywas performed followed by upsizing to a 6-Dutch x 11 cm sheath. Bilateralselective coronary angiography was then performed using 6-Dutch JL4 andJR4 diagnostic catheters.Heparin was administered intravenously and therapeutic ACT confirmed duringthe procedure. A 6-Dutch JR4 guiding catheter was advanced and used toengage the right coronary ostium. A Prowater wire was advanced into thedistal RCA. Balloon dilatation in the distal RCA was performed usingEmerge 2.0 x 12 mm balloon and inflated at 12 atmospheres. Angiographyrevealed suboptimal results. This was treated using a PROMUS Premier 2.5 x16 mm drug-eluting stent, deployed at 11 atmospheres and post dilated usingNC Quantum Salem 2.5 x 8 mm noncompliant balloon inflated [...] in-stent restenosis was performed using NC Quantum [place] 3.0 x8 mm noncompliant balloon inflated at 14 atmospheres followed by additionaldilatation using NC Quantum [place] 3.0 x 12 mm noncompliant balloon inflatedat [...] 14atmospheres and post dilated using NC Quantum Salem 3.25 x 20 mmnoncompliant balloon inflated at 20 atmospheres throughout the length ofthe stent. Final angiography after administration of intracoronarynitroglycerin showed excellent result with reduction of the stenosis to 0%.No evidence of dissection or perforation. The guiding catheter wasremoved. The procedure was concluded. The right femoral arteriotomy wasmanaged with a 6-Dutch Perclose device with good hemostasis. The patientwas [...] 04/15/2017/06:14 P/Jenny Coppola M.D.Date Trans: 04/16/2017 07:04 A/mmoDN_JN:[id number]: Theron Mendoza D.O. [address] [place] [id number] Tino Gunderson M.D. [address] [place] [id number] Normal [facility] MAGNESIUM BLOODon 04-16-2017 Magnesium 1.9 mg/dL Normal 1.9-2.7 [facility] Comment on above: Order Comment: No: Do not add to previou s draw Performed By: #### 1 0070, [id number] ####[facility] [place] POC GLUCOSE LABon 04-16-2017 Glucose mass conc 173 mg/dL High 70-100 [facility] Comment on above: Performed By: #### [id number] ####[facility] [place] Glucose mass conc 228 mg/dL High 70-100 [facility] Comment on above: Performed By: #### [id number] ####[facility] [place] [facility].[address] POC GLUCOSE LABon 04-15-2017 Glucose mass conc 214 mg/dL High 70-100 [facility] Comment on above: Performed By: #### [id number] ####[facility] [place] Vital Signs Date Time Vital Sign Value Performing Clinician Facility 12-18-2023 13:53-0400 Blood Pressure Location Chadd BARBOUR [facility] 12-18-2023 13:53-0400 Diastolic blood pressure 74 mm[Hg] Chadd NILL [facility] 12-18-2023 13:53-0400 Heart rate 70 /min Chadd NILL [facility] 12-18-2023 13:53-0400 Respiratory rate 16 /min Chadd NILL [facility] 12-18-2023 13:53-0400 Systolic blood pressure 126 mm[Hg] Chadd NILL [facility] 11-05-2023 13:43-0400 Body height 177.8 cm [facility] 11-05-2023 13:43-0400 Body mass index (BMI) [Ratio] 25.7 kg/m2 [facility] 11-05-2023 13:43-0400 Body weight 81.24 kg [facility] 11-05-2023 13:43-0400 Diastolic blood pressure 71 mm[Hg] [facility] 11-05-2023 13:43-0400 Heart rate 71 /min [facility] 11-05-2023 13:43-0400 Respiratory rate 12 /min [facility] 11-05-2023 13:43-0400 Systolic blood pressure 121 mm[Hg] [facility] 10-01-2023 12:35-0400 Blood Pressure Location DOMINGA PRESLEY [facility] 10-01-2023 12:35-0400 Diastolic blood pressure 78 mm[Hg] DOMINGA SAKINA [facility] 10-01-2023 12:35-0400 Heart rate 72 /min DOMINGA SAKINA [facility] 10-01-2023 12:35-0400 Respiratory rate 16 /min DOMINGA SAKINA [facility] 10-01-2023 12:35-0400 Systolic blood pressure 137 mm[Hg] DOMINGA PRESLEY [facility] 04-02-2023 09:30-0500 Body height 177.8 cm Theron Ball Other [facility] Other 04-02-2023 09:30-0500 Body mass index (BMI) [Ratio] 25.97 kg/m2 Theron Ball Other [facility] Other 04-02-2023 09:30-0500 Body weight 82.1 kg Theron Ball Other [facility] Other 04-02-2023 09:30-0500 Diastolic blood pressure 85 mm[Hg] Theron Ball Other [facility] Other 04-02-2023 09:30-0500 Respiratory rate 12 /min Theron Ball Other [facility] Other 04-02-2023 09:30-0500 Systolic blood pressure 135 mm[Hg] Theron Ball Other [facility] Other 11-01-2022 10:00-0400 Body height 177.8 cm Theron Ball Other [facility] Other 11-01-2022 10:00-0400 Body mass index (BMI) [Ratio] 25.77 kg/m2 Theron Ball Other [facility] Other 11-01-2022 10:00-0400 Body weight 81.47 kg Theron Ball Other [facility] Other 11-01-2022 10:00-0400 Diastolic blood pressure 71 mm[Hg] Theron Ball Other [facility] Other 11-01-2022 10:00-0400 Respiratory rate 12 /min Theron Ball Other [facility] Other 11-01-2022 10:00-0400 Systolic blood pressure 124 mm[Hg] Theron Ball Other [facility] Other 10-03-2022 13:45-0400 Body height 177.8 cm Theron Ball Other [facility] Other 10-03-2022 13:45-0400 Body mass index (BMI) [Ratio] 26.23 kg/m2 Theron Ball Other [facility] Other 10-03-2022 13:45-0400 Body weight 82.92 kg Theron Ball Other [facility] Other 10-03-2022 13:45-0400 Diastolic blood pressure 76 mm[Hg] Theron Ball Other [facility] Other 10-03-2022 13:45-0400 Respiratory rate 12 /min Theron Ball Other [facility] Other 10-03-2022 13:45-0400 Systolic blood pressure 160 mm[Hg] Theron Ball Other [facility] Other 11-20-2021 12:31-0400 Blood Pressure Location Tom ARGUETA [facility] 11-20-2021 12:31-0400 Diastolic blood pressure 80 mm[Hg] Tom ARGUETA [facility] 11-20-2021 12:31-0400 Heart rate 74 /min Tom ARGUETA [facility] 11-20-2021 12:31-0400 Respiratory rate 16 /min Tom ARGUETA [facility] 11-20-2021 12:31-0400 Systolic blood pressure 133 mm[Hg] Tom ARGUETA [facility] Encounters Encounter Date Encounter Type Care Provider Facility Start: 03-23-2024 End: 03-23-2024 ambulatory Natali Weir MD Facility: [facility] Start: 01-08-2024 ambulatory Chadd BARBOUR Facility : [facility] Start: 01-06-2024 End: 01-06-2024 ambulatory Natali Weir MD Facility: [facility] Start: 01-01-2024 End: 01-01-2024 ambulatory Chadd BARBOUR Facility:CD:[id number] Start: 12-18-2023 End: 12-18-2023 ambulatory Chadd BARBOUR Facility: [facility] Start: 12-18-2023 End: 12-18-2023 Patient encounter procedure Chadd BARBOUR [facility] Start: 12-16-2023 End: 12-16-2023 ambulatory Natali Weir MD Facility: [facility] Start: 12-02-2023 End: 12-02-2023 ambulatory Natali Weir MD Facility: [facility] Start: 11-18-2023 End: 11-18-2023 ambulatory Natali Weir MD Facility: [facility] Start: 11-05-2023 End: 11-05-2023 ambulatory [facility] Work Phone: Start: 11-05-2023 End: 11-05-2023 Patient encounter procedure [facility] Physician [facility] Work Phone: Start: 11-05-2023 Non-patient / Non-visit [facility] Work Phone: Start: 10-01-2023 End: 10-01-2023 ambulatory DOMINGAJEN PRESLEY Facility:[facility] Start: 10-01-2023 End: 10-01-2023 Patient encounter procedure DOMINGA PRESLEY [facility] Start: 09-17-2023 Non-patient / Non-visit [facility] Physician [facility] Work Phone: Start: 04-03-2023 End: 04-03-2023 ambulatory Theron Mendoza Other [facility] Other Start: 04-03-2023 Telephone encounter Theron Ball [facility] Start: 04-02-2023 End: 04-02-2023 ambulatory Theron Matt Other [facility] Other Start: 04-02-2023 Office outpatient vi sit 25 minutes Theron Matt [facility] Start: 04-01-2023 End: 04-01-2023 ambulatory Theron Ball Other [facility] Other Start: 04-01-2023 Telephone encounter Theron Ball [facility] Start: 01-07-2023 End: 01-07-2023 ambulatory Theron Ball Other [facility] Other Start: 01-07-2023 Telephone encounter Theron Ball [facility] Start: 11-01-2022 End: 11-01-2022 ambulatory Theron Ball Other [facility] Other Start: 11-01-2022 Patient encounter procedure Theron Mendoza [facility] Start: 10-03-2022 End: 10-03-2022 ambulatory Theron Mendoza Other [facility] Other Start: 10-03-2022 Office outpatient vi sit 15 minutes Theron Matt [facility] Start: 10-03-2022 Telephone encounter Theron Mendoza [facility] Start: 04-30-[address] THERON MENDOZA Facili ty:[facility]1 Start: 03-29-2022 End: 03-30-[address] THERON MENDOZA Facility:[facility] Start: 11-25-2021 End: 11-26-[address] THERON MENDOZA Facility:[facility] Start: 11-24-2021 End: 11-25-[address] THERON MENDOZA Facility:[facility] Start: 11-22-2021 Adult health examination Theron Matt Other [facility] Other Start: 11-20-2021 End: 11-20-2021 Patient encounter procedure Tom ARGUETA [facility] Start: 09-14-2021 End: 09-15-[address] THERON MENDOZA Facility:[facility] Start: 09-10-2017 End: 09-11-2017 Ambulatory DEFAULT PHYSICIAN Facility:[facility] Start: 04-25-2017 End: 04-26-2017 Ambulatory PROVIDER UNKNOWN Facility:[facility] Start: 04-15-2017 End: 04-16-2017 Evaluation and management of inpatient THERON MENDOZA Facility:[facility] Procedures Date Procedure Procedure Detail Performing [...] catheterization Andrew leilasantosh CHARLIESantosh Depression screening Rasheed Mednoza Other Operation on heart Tom Kianna MARTINEZ Placement of stent i n cardiac conduit Tom ARGUETA Placement of stent i n coronary artery Chadd BARBOUR Plan of Treatment Date Care Activity Detail Author Start: 10-02-2024 ambulatory Ambulatory Facility:[facility] XR Lumbar spine Views [facility] XR Pelvis 1 or 2 Views [facility] Immunizations Immunization Date Immunization Notes Care Provider Fa marybeth 04-03-2022 influenza virus vaccine, split virus (incl. purified surface antigen) Theron Mendoza Other [facility] Other 04-03-2022 influenza virus vaccine, unspecified formulation [facility] 04-03-2022 Prevnar 20 Theron Mendoza Other [facility] 03-28-2021 influenza virus vaccine, split virus (incl. purified surface antigen) Theron Mendoza Other [facility] Other 03-28-2021 influenza virus vaccine, unspecified formulation DOMINGA PRESLEY [facility] 04-03-2018 diphtheria, tetanus toxoids and acellular pertussis vaccine, unspecified formulation Theron Mendoza Other [facility] pneumococcal Conjuga te, unspecified formulation; Translations: [Need for prophylactic vaccination against Streptococcus pneumoniae (pneumococcus)] Theron Mendoza Other [facility] Other Payers Date Payer Category Payer Private Health Insurance 2016 Unknown 1958 Medicare [id number] 1959 Private Health Insurance [id number] 1959 Self-pay [id number] 1951 Unknown [id number] 2.16.84 [id number] 1950 Unknown [id number] 2.16.84 [id number] 1951 Unknown [id number] 2.16.84 [id number] 1951 Unknown [id number] 2.16.84 0.1.262846.3.579.2.593 1951 Unknown [id number] 2.16.84 0.1.628881.3.579.2.593 1951 Unknown [id number] 2.16.8 40.1.017143.3.579.2.727 1951 Unknown [id number] 2.16.8 40.1.918483.3.579.2.727 1951 Unknown [id number] 2.16.8 40.1.216822.3.579.2.727 1951 Unknown [id number] 2.16.8 40.1.168904.3.579.2.727 1951 Unknown [id number] 2.16.8 40.1.266684.3.579.2.727 1951 Unknown [id number] 2.16. 840.1.686170.3.579.2.196 1951 Unknown [id number] 2.16. 840.1.761420.3.579.2.196 1951 Unknown [id number] 2.16. 840.1.885262.3.579.2.196 1951 Unknown [id number] 2.16. 840.1.200111.3.579.2.196 1950 Unknown [id number] 2.16. [id number] Medicare [id number] Social History Date Type Detail Facility Start: 04-10-2021 End: 12-18-2023 Tobacco smoking status Ex-smoker (finding) [facility] Sex Assigned At Male [facility] Tobacco smoking status Never [facility] Start: 11-05-2023 Tobacco smoking stat us ARIS Never smoked tobacco (finding) [facility] Start: 1950 Sex Assigned At Male F [facility] Medical Equipment Procedure Code Equipment Code Equipment Origin al Text Equipment Identifier Dates BD Pen Needle Sh ort U/F 31G X 8 MM Start: 01-07-2023 Functional Status Date Assessment Result Facility 12-18-2023 Functional Status N/A [facility] 10-01-2023 Functional Status N/A [facility] 11-20-2021 Functional Status N/A [facility] Clinical Notes 11-20-2021 to 12-18-2023 Note [...] 1 (more content not included)... [facility] Comment on above: Result Comment: Elec tronically [...] urethra. Follow these instructions at home: Take xhle-naw-gytvyyi and prescription medicines only as told by [...] provider. Document Revised: 11/01/2021 Document Reviewed: 11/01/2021 [employer] Patient Education 2022 WebNotes. Follow Up Care 09/17/2022 11:39:15 With:DOMINGA PRESLEY PA-C, URL Address: [address] [place] [address] When: Unknown [facility] Evaluation note Encounter Date Diagnosis [...] for cerebrovascular and cardiovascular disease. Mar, senior care (current) use of insulin (ICD-10 - [...] dyspnea, CP or lightheadedness _update office tomorrow [facility] Other 12-04-2023 Evaluation note* Encounter Date Diagnosis Assessment Notes Treatment Notes Treatment Clinical Notes Mar, Primary hypertension (ICD-10 - I10) Mar, Type 2 diabetes mellitus with hyperglycemia (ICD-10 - E11.65) Mar, Mixed hyperlipidemia (ICD-10 - E78.2) Mar, ASHD (arteriosclerotic heart disease) (ICD-10 - I25.10) Mar, High risk medication use (ICD-10 - Z79.899) [facility] Other 09-11-2023 Evaluation note* Encounter Date Diagnosis Assessment Notes Treatment Notes Treatment Clinical Notes Dec, Type 2 diabetes mellitus with hyperglycemia (ICD-10 - E11.65) [facility] Other 07-06-2023 Evaluation note* Encounter Date Diagnosis [...] risk for cerebrovascular and cardiovascular disease. 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 They are also encouraged to continue exercise to achieve/maintain a normal BMI. Oct, Screening PSA (prostate specific antigen) (ICD-10 - Z12.5) Completed w/ , normal [facility] Other 06-07-2023 Evaluation note* Encounter Date Diagnosis [...] to achieve/maintain a normal BMI. Avoid NSAIDs [facility] Other 07-25-2022 Hospital Discharge instructions Patient Education [...] Follow these instructions at home: Medicines Take bytj-nuo-evbfule and prescription medicines only as told by [...] or the blood stops without treatment. Take tklt-fep-ijnrbeb and prescription medicines only as told by your health care provider. Drink enough fluid to keep your urine clear or pale yellow. This information is not intended to replace advice given to you by your health care provider. Make sure you discuss any questions you have with your health care provider. Document Released: 04/15/2006 Document Revised: 09/09/2019 Document Reviewed: 05/18/2017 [employer] Patient Education 2020 WebNotes. Follow Up Care 09/21/2021 10:23:43 With:Tom ARGUETA MD, URL Address: [facility] [address], [place] [address]- [phone] When: Unknown [facility] evaluation + Plan note Future Appointments Appointment Date:11/28/2021 08:45:00 AM Scheduled Provider: Location:[facility] Appointment Type:Urology CALL PAT FT Appointment Date:12/12/2021 10:30:00 AM Scheduled Provider: Location:[facility] Appointment Type:Urology FT Appointment Date:04/13/2022 10:45:00 AM Scheduled Provider:Tom ARGUETA MD Location:[facility] Appointment Type:URO Office Visit [facility] evaluation + Plan note Future Appointments Appointment Date:10/02/2024 10:15:00 AM Scheduled Provider:Tom ARGUETA MD Location:[facility] Appointment Type:URO Office Visit Diagnostic Tests Pending * PSA Total 10/01/23 [facility] evaluation + Plan note Future Appointments Appointment Date:10/02/2024 10:15:00 AM Scheduled Provider:Tom ARGUETA MD Location:[facility] Appointment Type:URO Office Visit [facility] Evaluation noteNo [facility]No[facility] Other Evaluation note* Diagnosis Onset Date Resolution Status Anemia acute ASHD (arteriosclerotic heart disease) acute GERD (gastroesophageal reflux disease) acute Hypercholesterolemia acute Hypertension acute Type 2 diabetes mellitus with hyperglycemia acute Medicare annual wellness visit, subsequent noneactive Screening for colon cancer n oneactive [facility] Work Phone: History general Narrative - Reported* Type Description Date Medical History ASHD Medical History HTN Medical History Hyperlipidemia Medical History T2DM Medical History GERD Surgical History ANGIOPLASTY Surgical History [facility] PCI/stent RCA and LAD 2007 Surgical History [facility] PCI/stent RCA 2016 Surgical History C PCI/stent OM and LCx 2016 Surgical History C PCI/stent RCA x 2 2017 Surgical History [facility] PCI/stent LAD 2017 Surgical History TURP, TRUS/bx 2009 Surgical History Arthroscopy right knee 2005, 20 14 Surgical History Arthroscopy left knee 2004 Hospitalization History see surgical history [facility] [place] [employer] Other Hospital course Narrative No data available for this section [facility] Hospital Discharge instructions No data available for this section [facility] Progress note No data available for this section [facility] reason for referral (narrative)* Reason Referral for interna l derangement right knee Diagnosis 1 Internal derangement of right knee (M23.91) Referral Organization [facility] bhargav Referring Provider First Name Theron [...] Notes MRI right knee to be included [facility] Other Summary Purpose Family History No Family [...] section and content) DATE CREATED AUTHOR 10/16/2017 [facility] [facility] DATE CREATED AUTHOR AUTHOR'S ORGANIZ ATION 04/04/2019 [facility] DATE CREATED AUTHOR AUTHOR'S ORGANIZ ATION 04/30/2022 [facility] DATE CREATED AUTHOR AUTHOR'S ORGANIZ ATION 01/08/2024 [facility] DATE CREATED AUTHOR AUTHOR'S ORGANIZ ATION 03/29/2024 [facility] Care Team (unrecognized sect ion and [...] content) Wants in [facility] [place] InformationNo InformationBlood Work?Check UpUpdate Goals [...] BE BASED ON THE PRIMARY CLINICAL RECORDS. [facility] leemail [facility]. provides no warranty or guarantee of the accuracy or completeness of information in this document.
[2024-04-08 07:59] LABS: Thyroid Stimulating Hormone 1.651 uIU/mL (0.358-3.740)
[2024-04-08 08:38] LABS: Estimated Average Glucose 163 mg/dL; Glycohemoglobin A1C 7.3 % (4.5-6.2)
== END 2024-04-08 07:14 | disposition home or self-care (01) ==
LOC: LAB 07:15
PROVIDERS: PCP Internal Medicine; Visit Provider Internal Medicine
DX: R63.4 Abnormal weight loss (principal); E11.65 Type 2 diabetes mellitus with hyperglycemia; Z79.4 Long term (current) use of insulin
CPT/HCPCS: 36415; 83036; 84443

== ENCOUNTER 2024-04-13 07:56 | Day surgery (SDC) | payer MEDICARE, OTHER, SELFPAY ==
[2024-04-13 08:30] VITALS: BP 145/79; PULSE 69; TEMP 36.2; O2SAT 99
[2024-04-13 08:38] LABS: Glucometer 262 mg/dL (74-106)
[2024-04-13 08:55] VITALS: BP 158/74; PULSE 68; O2SAT 97
[2024-04-13 08:57] VITALS: BP 160/74; PULSE 66; O2SAT 97
[2024-04-13] MEDS: LIDOCAINE HCL 2% 400 MG/20 ML MDV 8 ML INJ (08:58)
[2024-04-13] MEDS: BUPIVACAINE HCL 0.25% PF 25 MG/10 ML VIAL 2 ML INJ (08:58)
--- NOTE | 2024-04-13 08:58 | W.PM.PROCNOT ---
Date of procedure: 04/13/24 Pre-op diagnosis: Pain due to lumbar spondylosis without myelopathy Post-op diagnosis: same as pre-op Procedure: Procedure: Bilateral L4-5, L5-S1 medial branch block Medications: Bupivacaine 0.25% 6cc The patient was seen and examined in the preoperative holding area.? An informed consent was obtained and placed on the chart.? The patient was brought to the medical procedure unit and placed in the prone position.? A timeout was completed verifying correct patient, procedure site, positioning, plan, and special equipment.? Using aseptic technique, the needle was placed at left L4. Under direct fluoroscopic visualization a Quincke-tipped spinal needle was advanced to the junction of the superior articulating process with the transverse process at the designated medial branch segment.? Preceded by negative aspiration, the above-mentioned injectate was placed in 1 mL aliquots.? The procedure was repeated at left L5, S1.? The needle was removed and insertion site was covered. The same procedure, at the same levels, was completed on the right side. The patient was taken to the postprocedural recovery area and monitored for an appropriate length of time before found suitable for discharge in the company of a responsible adult. Anesthesia: Local Surgeon: Natali Weir Pathology: none sent Condition: stable Disposition: no change
== END 2024-04-13 09:02 | disposition home or self-care (01) ==
LOC: SURGOUT 07:57
PROVIDERS: PCP Internal Medicine; Visit Provider Anesthesiology
DX: M47.816 Spondylosis without myelopathy or radiculopathy, lumbar region (principal); E11.9 Type 2 diabetes mellitus without complications; Z79.4 Long term (current) use of insulin; Z79.84 Long term (current) use of oral hypoglycemic drugs
CPT/HCPCS: 36415; 64493; 64494; 82948; J0665

== ENCOUNTER 2024-04-16 10:02 | Outpatient (OUT) | payer MEDICARE, OTHER, SELFPAY ==
--- OUTSIDE RECORDS SUMMARY | 2024-04-16 10:21 | XMS_ITS | CCD ---
Author Organization [facility] Care Team Providers Care Theater Manager Name Role Phone THERON MENDOZA Unavailable Unavailable TINO GUNDERSON Unavailable Unavailable [place], [place] GREGORIO Unavailable Unavailable [place], [place] AM Unavailable Unavailable CT Unavailable Unavailable UNKNOWN, PROVIDER Unavailable Unavailable UNKNOWN, [...] DR CRUMP Primary Care Unavailable BALL, DR CRMUP Admitting Unavailable BALL, DR CRUMP Attending Unavailable [...] Date of Onset Reaction(s) Facility (1 source) 87220,00; Translations: [59740,00] Propensity to adverse reactions (disorder) [address] [facility] Repository (12 sources) metFORMIN; Translations: [metFORMIN] Drug Allergy diarrhea, Unknown [facility] Repository (3 sources) patient allergy list reviewed by nurse or physicia Propensity to adverse reactions Comment:Done Interactive TKO Other (1 source) No Known Medication Allergies; Translations: [No Known Medication Allergies] Propensity to adverse reactions (disorder) [facility] Repository Medications Current Medications Medication Drug Class(es) [...] procedure, # 2 cap(s), Refills(s) 0, Pharmacy: [facility]/pharmacy #[id number], 177, cm, 11/20/21 12:47:00 EDT, [...] disease (20 sources) Atherosclerotic heart disease of [place] coronary artery with unstable angina pectoris; Translations: [Atherosclerotic heart disease of [place] coronary artery without angina pectoris] Onset: 08-25-2013 [...] Onset: 09-18-2013 Chronic Other aftercare (6 sources) half-way (current) use of insulin; Translations: [half-way (current) use of antithrombotics/antip latelets] Onset: 04-15-2017 Episodic Other aftercare (8 sources) Long-term current use of insulin; Translations: [half-way (current) use of insulin] Episodic Other aftercare (1 source) 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 Normal [facility] Cholesterol in LDL Calc [Mas s/Vol]on 11-05-2023 Cholesterol in LDL [Mass/Vol] 42.0 mg/dL [facility] Comment on above: <100 mg/dl [id number] mg/dl NEAR OR ABOVE [id number] mg/dl BORDERLINE [id number] mg/dl HIGH>190 mg/dl VERY HIGH Cholesterol in VLDL Calc [Ma ss/Vol]on 11-05-2023 Cholesterol in VLDL [Mass/Vol] 35.6 mg/dL [facility] Estimated glomerular filtrat ion rate (GFR) non- Americanon 11-05-2023 GFR/1.73 sq M.predicted among non-blacks MDRD (S/P/Bld) [Vol rate/Area] mL/min/{1.73_m2} >=60 [facility] Globulin Calc (S) [Mass/Vol] on 11-05-2023 Globulin (S) [Mass/Vol] 3.3 g/dL [facility] Glucose mean value [Mass/vol ume] in Blood Estimated from glycated hemoglobinon 11-05-2023 Average glucose Estimated from glycated hemoglobin (Bld) [Mass/Vol] 143 mg/dL [facility] Laboratory - Chemistry and C hemistry - challengeon 11-05-2023 Albumin [Mass/Vol] 4.0 g/dL 3.4-5.0 [facility] ALP [Catalytic activity/Vol] 74 U/L 46-116 [facility] ALT [Catalytic activity/Vol] 48 U/L 16-63 [facility] AST [Catalytic activity/Vol] 34 U/L 15-37 [facility] Bilirubin [Mass/Vol] 0.9 mg/dL 0.2-1.0 [facility] Calcium [Mass/Vol] 8.6 mg/dL 8.5-10.1 [facility] Chloride [Moles/Vol] 103 mmol/L 98-107 [facility] Cholesterol [Mass/Vol] 119 mg/dL <=200 [facility] Cholesterol in HDL [Mass/Vol] 42 mg/dL 40-60 [facility] Comment on above: > or =60 mg/dl - LOW CARDIOVASCULAR RISK <40 mg/dl - HIGH CARDIOVASCULAR RISK CO2 [Moles/Vol] 28.3 mmol/L 21.0-32.0 [facility] Creatinine [Mass/Vol] 1.10 mg/dL 0.70-1.30 [facility] GFR/1.73 sq M.predicted MDRD (S/P/Bld) [Vol rate/Area] mL/min/{1.73_m2} >=60 [facility] Glucose [Mass/Vol] 139 mg/dL High 74-106 [facility] Potassium [Moles/Vol] 4.1 mmol/L 3.5-5.1 [facility] Protein [Mass/Vol] 7.3 g/dL 6.4-8.2 [facility] Sodium [Moles/Vol] 141 mmol/L 136-145 [facility] Triglyceride [Mass/Vol] 178 mg/dL High <=150 [facility] Urea nitrogen [Mass/Vol] 21.0 mg/dL High 7.0-18.0 [facility] Urea nitrogen/Creatin ine [Mass ratio] 19.1 mg/mg [facility] Laboratory - Hematology and Cell countson 11-05-2023 HbA1c (Bld) [Mass fraction] 6.6 % High 4.5-6.2 [facility] Comment on above: ADA RECOMMENDED LIMIT 4.0 - 6.0ADA THERA PEUTIC TARGET < 7.0ACTION SUGGESTED> 7.0 Microalbumin [Mass/volume] i n Urineon 11-05-2023 Albumin DL <= 20 mg/L (U) [Mass/Vol] 3.4 mg/dL <=30.0 [facility] Serum or plasma albumin/glob ulin mass ratioon 11-05-2023 Albumin/Globulin [Mass ratio] 1.2 {ratio} [facility] Serum or plasma anion gap de terminationon 11-05-2023 Anion gap [Moles/Vol] 13.8 mmol/L [facility] Serum or plasma total choles terol/high density lipoprotein (HDL) cholesterol mass aquiles 11-05-2023 Cholesterol.tota l/Cholesterol in HDL [Mass ratio] 2.8 {ratio} [facility] Comment on above: 3.3 - 4.4 LOW RISK4.4 - 7.1 AVERAGE RISK 7.1 - 11.0 MODERATE RISK>11.0 HIGH RISK Screenson 10-02-2023 Screens [id number] Normal [facility] Screens [id number]#[id number] Normal [facility] Ambulatory Visit Summaryon 0 10-01-2023 Ambulatory Visit [...] NUÑEZ, Tom Cohen Where: [facility] Patient Educationon 10-01-19 Patient Education [...] Follow these instructions at home: ? Take qfev-fet-cyjkwky and prescription medicines only as told by [...] the medicine (more content not included)... Normal [facility] Urology Office/Clinic Noteon 10-01-2023 Urology Office/Clinic Note [...] Contact Information SAKINA RANDALL, DOMINGA Multani, URL [address] [place] [address] Additional Instructions: 1 yr PSA Patient Education [...] virus vaccine (more content not included)... Normal [facility] Comment on above: Result Comment: Electronically Signed By : DOMINGA PRESLEY PA-C\.br\Date and Time Signed: 10/01/23 13:08 EDT\.br\Electronically Co-Signed By: Trish Marcus\.br\Date and Time Co-Signed: 10/01/23 13:03 EDT Lab Reportson 09-18-2023 Lab Reports [id number]#[id number] [facility] RAD - Ultrasound Reporton RAD - Ultrasound Report [id number]#[id number] Normal [facility] No Panel Informationon 09-16 Free Prostate Specific Antigen 0.78 ng/mL N/A [facility] Comment on above: [place] ECLIA methodology. Prostate Specific Antigen Total 1.9 ng/mL 0.0-4.0 [facility] Comment on above: [place] ECLIA methodology.According to the [place] [employer], Serum PSAshould decrease and remain [...] [Mass fraction] 41.1 % . [facility] Comment on above: The table [...] any other population of men.Performed at: - [address] [id number] Director: Guanakito Cota PhD, Phone: [phone] Reminderson 08-22-2023 Reminders - From: Sade Kilgore [...] appt. LM on VM informing pt that [facility] will be reaching out to get MINESH scheduled. Appt 09/20/23 to review results. Order & demo's faxed to the [facility] CS. MINESH scheduled 09/17/23 @ [facility] Normal [facility] GLYCOHEMOGLOBIN A1Con 2021 ADA RECOMMENDATION SEE BELOW Normal [facility] Comment on above: Result Comment: ADA RECOMMENDED LIMIT 4. 0 - 6.0 ADA THERAPEUTIC TARGET < 7.0 ACTION SUGGESTED > 7.0 Performed By: #### A 1C #### [facility] [address] [place], [place] [address] Dr. Yara Chavez Glucose [Mass/Vol] 166 mg/dL Normal [facility] Comment on above: Performed By: #### A1C #### [facility] [address] [place], [place] [address] Dr. Yara Chavez HbA1c (Bld) [Mass fraction] 7.4 % Critically high 4.5-6.2 [facility] Comment on above: Performed By: #### A1C #### [facility] [address] [place], [place] [address] ABD/PELV W CONon [...] PARAS SOMMERS Date: 2021-11-26 02:01 Normal [facility] CBC AUTO DIFFon 11-24-2021 BASO # 0.0 103/ul Normal 0.0-0.1 [facility] Comment on above: Performed By: #### CBC #### [facility] [address] [place] [address] Dr. Yara Chavez Basophils/100 WBC (Bld) 0.7 % Normal 0.2-2.0 [facility] Comment on above: Performed By: #### CBC #### [facility] [address] [place] [address] Dr. Yara Chavez EO # 0.0 103/ul Normal 0.0-0.7 [facility] Comment on above: Performed By: #### CBC #### [facility] [address] [place] [address] [address] Yara Chavez Eosinophils/100 WBC (Bld) 1.0 % Normal 0.9-7.0 [facility] Comment on above: Performed By: #### CBC #### [facility] [address] [address] [address] Yara Chavez Erythrocyte distribution width (RBC) [Ratio] 14.7 % Normal 11.0-15.0 [facility] Comment on above: Performed By: #### CBC #### [facility] [address] [place] [address] Dr. Yara Chavez Hematocrit (Bld) [Volume fraction] 38.7 % Critically low 42.0-54.0 [facility] Comment on above: Performed By: #### CBC #### [facility] [address] [place] [address] Dr. Yara Chavez Hemoglobin (Bld) [Mass/Vol] 12.3 g/dL Critically low 14.0-18.0 [facility] Comment on above: Performed By: #### CBC #### [facility] [address] [place] [address] Dr. Yara Chavez IG # 0.01 10e3/ul Normal 0.00-0.03 [facility] Comment on above: Performed By: #### CBC #### [facility] [address] [place] [address] Dr. Yara Chavez IG % 0.3 % Normal 0.0-0.5 [facility] Comment on above: Performed By: #### CBC #### [facility] [address] [place] [address] Dr. Yara Chavez LYMPH # 1.1 103/ul Critically low 1.2-3.8 [facility] Comment on above: Performed By: #### CBC #### [facility] [address] [place] [address] Dr. Yara Chavez Lymphocytes/100 WBC (Bld) 36.1 % Normal 20.5-60.0 [facility] Comment on above: Performed By: #### CBC #### [facility] [address] [place] [address] Dr. Yara Chavez MANUAL DIFF REQ NO Normal [facility] Comment on above: Performed By: #### CBC #### [facility] [address] [place] [address] Dr. Yara Chavez MCH (RBC) [Entitic mass] 28.0 pg Normal 25.9-34.0 [facility] Comment on above: Performed By: #### CBC #### [facility] [address] [place] [address] Dr. Yara Chavez MCHC (RBC) [Mass/Vol] 31.8 g/dL Normal 29.9-35.2 [facility] Comment on above: Performed By: #### CBC #### [facility] [address] [address] [address] Yara Chavez MCV (RBC) [Entitic vol] 88.2 fL Normal 80.0-94.0 [facility] Comment on above: Performed By: #### CBC #### [facility] [address] [address] [address] Yara Chavez MONO # 0.3 103/ul Normal 0.3-0.8 [facility] Comment on above: Performed By: #### CBC #### [facility] [address] [address] [address] Yara Chavez Monocytes/100 WBC (Bld) 9.5 % Normal 1.7-12.0 [facility] Comment on above: Performed By: #### CBC #### [facility] [address] [place] [address] Dr. Yara Chavez NEUT # 1.5 103/ul Normal 1.4-6.5 [facility] Comment on above: Performed By: #### CBC #### [facility] [address] [place] [address] Dr. Yara Chavez Neutrophils/100 WBC (Bld) 52.4 % Normal 43.0-75.0 [facility] Comment on above: Performed By: #### CBC #### [facility] [address] [place] [address] Dr. Yara Chavez Platelet mean volume (Bld) [Entitic vol] 10.1 fL Normal 9.5-13.5 [facility] Comment on above: Performed By: #### CBC #### [facility] [address] [place] [address] Dr. Yara Chavez PLT 195 103/ul Normal 150-450 [facility] Comment on above: Performed By: #### CBC #### [facility] [address] [place] [address] Dr. Yara Chavez RBC 4.39 106/ul Critically low 4.70-6.10 [facility] Comment on above: Performed By: #### CBC #### [facility] [address] [place] [address] Dr. Yara Chavez WBC 2.9 103/ul Critically low 4.0-11.0 [facility] Comment on above: Performed By: #### CBC #### [facility] [address] [address] [address] Yara Chavez LIPID PROFILEon 11-24-2021 CHOL-HDL RATIO NORM SEE BELOW Normal [facility] Comment on above: Result Comment: 3.3 - 4.4 LOW RISK 4.4 - 7.1 AVERAGE RISK 7.1 - 11.0 MODERATE RISK >11.0 HIGH RISK Performed By: #### A LT, BMP, LIPID #### [facility] [address] [address] [address] Yara Chavez Cholesterol [Mass/Vol] 124 mg/dL Normal <=200 [facility] Comment on above: Performed By: #### ALT, BMP, LIPID #### [facility] [address] [address] [address] Yara Chavez Cholesterol in HDL [Mass/Vol] 41 mg/dL Normal 40-60 [facility] Comment on above: Performed By: #### ALT, BMP, LIPID #### [facility] [address] [address] [address] Yara Chavez Cholesterol in LDL [Mass/Vol] 56.8 mg/dL Normal [facility] Comment on above: Performed By: #### ALT, BMP, LIPID #### [facility] [address] [address] [address] Yara Chavez Cholesterol.tota l/Cholesterol in HDL [Mass ratio] 3.0 {ratio} Normal [facility] Comment on above: Performed By: #### ALT, BMP, LIPID #### [facility] [address] [address] [address] Yara Chavez HDL NORMAL > or = 60 mg/dl - LO W CARDIOVASCULAR RISK <40 mg/dl - HIGH CARDIOVASCULAR RISK Normal [facility] Comment on above: Performed By: #### ALT, BMP, LIPID #### [facility] [address] [address] [address] Yara Chavez LDL CALC NORMAL SEE BELOW Normal [facility] Comment on above: Result Comment: <100 mg/dl OPTIMAL 100 - 129 mg/dl NEAR OR ABOVE OPTIMAL 130 - 159 mg/dl BORDERLINE HIGH 160 - 189 mg/dl HIGH >190 mg/dl VERY HIGH Performed By: #### A LT, BMP, LIPID #### [facility] [address] [place] [address] Dr. Yara Chavez Triglyceride [Mass/Vol] 131 mg/dL Normal <=150 [facility] Comment on above: Performed By: #### ALT, BMP, LIPID #### [facility] [address] [place] [address] Dr. Yara Chavez VLDL CALC 26.2 mg/dL Normal [facility] Comment on above: Performed By: #### ALT, BMP, LIPID #### [facility] [address] [place] [address] Dr. Yara Chavez MICROALBUMIN, RAND URon 07- mALB 1.4 mg/L Normal <=30.0 [facility] Comment on above: Performed By: #### MALBR #### [facility] [address] [place] [address] Dr. Yara Chavez PROF CHEM 8 (BAS METB)on Anion gap [Moles/Vol] 10.1 mmol/L Normal [facility] Comment on above: Performed By: #### ALT, BMP, LIPID #### [facility] [address] [place] [address] Dr. Yara Chavez Calcium [Mass/Vol] 9.0 mg/dL Normal 8.5-10.1 [facility] Comment on above: Performed By: #### ALT, BMP, LIPID #### [facility] [address] [place] [address] Dr. Yara Chavez Chloride [Moles/Vol] 105 mmol/L Normal 98-107 [facility] Comment on above: Performed By: #### ALT, BMP, LIPID #### [facility] [address] [place] [address] Dr. Yara Chavez CO2 [Moles/Vol] 31.3 mmol/L Normal 21.0-32.0 [facility] Comment on above: Performed By: #### ALT, BMP, LIPID #### [facility] [address] [address] [address] Yara Chavez Creatinine [Mass/Vol] 1.24 mg/dL Normal 0.70-1.30 [facility] Comment on above: Performed By: #### ALT, BMP, LIPID #### [facility] [address] [place] [address] [address] Yara Chavez EGFR-AF CYMRO >60 Normal >=60 [facility] Comment on above: Performed By: #### ALT, BMP, LIPID #### [facility] [address] [place] [address] [address] Yara Chavez EGFR-NON AF CYMRO 58 mL/min/1.73m2 Critically low >=60 [facility] Comment on above: Performed By: #### ALT, BMP, LIPID #### [facility] [address] [address] [address] Yara Chavez Glucose [Mass/Vol] 102 mg/dL Normal 74-106 [facility] Comment on above: Performed By: #### ALT, BMP, LIPID #### [facility] [address] [address] [address] Yara Chavez Potassium [Moles/Vol] 4.4 mmol/L Normal 3.5-5.1 [facility] Comment on above: Performed By: #### ALT, BMP, LIPID #### [facility] [address] [address] [address] Yara Chavez Sodium [Moles/Vol] 142 mmol/L Normal 136-145 [facility] Comment on above: Performed By: #### ALT, BMP, LIPID #### [facility] [address] [address] [address] Yara Chavez Urea nitrogen [Mass/Vol] 22.0 mg/dL Critically high 7.0-18.0 [facility] Comment on above: Performed By: #### ALT, BMP, LIPID #### [facility] [address] [address] [address] Yara Chavez Urea nitrogen/Creatin ine [Mass ratio] 17.7 mg/mg Normal [facility] Comment on above: Performed By: #### ALT, BMP, LIPID #### [facility] [address] [place] [address] Dr. Yara Chavez SGPTon 11-24-2021 ALT [Catalytic activity/Vol] 48 U/L Normal 16-63 [facility] Comment on above: Performed By: #### ALT, BMP, LIPID #### [facility] [address] [place] [address] Dr. Yara Chavez GLYCOHEMOGLOBIN A1Con 2021 ADA RECOMMENDATION SEE BELOW Normal [facility] Comment on above: Result Comment: ADA RECOMMENDED LIMIT 4. 0 - 6.0 ADA THERAPEUTIC TARGET < 7.0 ACTION SUGGESTED > 7.0 Performed By: #### A 1C #### [facility] [address] [place] [address] Dr. Yara Chavez Glucose [Mass/Vol] 169 mg/dL Normal [facility] Comment on above: Performed By: #### A1C #### [facility] [address] [place] [address] Dr. Yara Chavez HbA1c (Bld) [Mass fraction] 7.5 % Critically high 4.5-6.2 [facility] Comment on above: Performed By: #### A1C #### [facility] [address] [place] [address] Dr. Yara Chavez PROF CHEM 8 (BAS METB)on Anion gap [Moles/Vol] 12.0 mmol/L Normal [facility] Comment on above: Performed By: #### BMP #### [facility] [address] [place] [address] Dr. Yara Chavez Calcium [Mass/Vol] 8.7 mg/dL Normal 8.5-10.1 [facility] Comment on above: Performed By: #### BMP #### [facility] [address] [place] [address] Dr. Yara Chavez Chloride [Moles/Vol] 103 mmol/L Normal 98-107 [facility] Comment on above: Performed By: #### BMP #### [facility] [address] [place] [address] Dr. Yara Chavez CO2 [Moles/Vol] 29.1 mmol/L Normal 21.0-32.0 [facility] Comment on above: Performed By: #### BMP #### [facility] [address] [place] [address] [address] Yara Chavez Creatinine [Mass/Vol] 1.17 mg/dL Normal 0.70-1.30 [facility] Comment on above: Performed By: #### BMP #### [facility] [address] [address] [address] Yara Chavez EGFR-AF CYMRO >60 Normal >=60 [facility] Comment on above: Performed By: #### BMP #### [facility] [address] [place] [address] Dr. Yara Chavez EGFR-NON AF CYMRO >60 Normal >=60 [facility] Comment on above: Performed By: #### BMP #### [facility] [address] [place] [address] Dr. Yara Chavez Glucose [Mass/Vol] 144 mg/dL Critically high 74-106 [facility] Comment on above: Performed By: #### BMP #### [facility] [address] [address] [address] Yara Chavez Potassium [Moles/Vol] 4.1 mmol/L Normal 3.5-5.1 [facility] Comment on above: Performed By: #### BMP #### [facility] [address] [place] [address] Dr. Yara Chavez Sodium [Moles/Vol] 140 mmol/L Normal 136-145 [facility] Comment on above: Performed By: #### BMP #### [facility] [address] [place] [address] Dr. Yara Chavez Urea nitrogen [Mass/Vol] 18.0 mg/dL Normal 7.0-18.0 [facility] Comment on above: Performed By: #### BMP #### [facility] [address] [address] [address] Yara Chavez Urea nitrogen/Creatin ine [Mass ratio] 15.4 mg/mg Normal [facility] Comment on above: Performed By: #### BMP #### [facility] [address] [place] [address] Dr. Yara Chavez CNOVSPon 04-02-2019 CNOVSP Visit (SP) Office ( [facility]) DUKELISA CORONA ([id number]) 1950 M Date Time Provider Department 04/02/19 11:15 AM THAIS HEBERT During your visit today, we recorded the following information about you: Temperature Pulse Respiration Blood pressure 98.1 degrees 72/minute 16/minute 131/69 Weight Height 80.5 kg 1.778 m Thais Hebert DO 04/03/2019 1:15 PM Signed PATIENT NAME: Lisa Lugo REFERRING PHYSICIAN: Theron Mendoza MD ([facility] [place]) [address] [place] [address] PRIMARY CARE PHYSICIAN: Theron Mendoza MD CHIEF [...] PANEL - CBC + DIFF (FOR REMOTE [facility] USE) - IRON + TIBC - FERRITIN BLD - VITAMIN B12 BLOOD - FOLATE SERUM - METHYLMALONIC ACID - HEP REMOTE PANEL BL - SED RATE [facility] Return labs today. f/u 6 mos. [...] questions satisfactorily.. Francois Hebert D.O. Medical Oncologist [facility] [place], [place] Referring Provider: THERON MENDOZA [[id number]] Allergies As of Date: 04/02/2019 (No Known Allergies) Date Reviewed: 04/02/2019 Reviewed by: Dorene Germain - Fully Assessed Reason for Visit: abdnormal lab [Other] Cmt: new patient consultation Primary Visit Diagnosis:Leukopenia, unspecified type [D72.819] Other Visit Diagnosis:Abnormal finding of blood chemistry, unspecified [R79.9] Order(s):PROTEIN ELECTROPHORESIS W/INTERP [SQSEPG] Order #: [id number] FUTURE MONOCLONAL PROTEIN, SERUM (BLOOD) [SQSERMPA] Order #: [id number] FUTURE IMMUNOGLOBULINS SHANIA [SQSERIMM] Order #: [id number] FUTURE LD LACTATE DEHYDRO [SQLD6] Order #: [id number] FUTURE COMP METABOLIC PANEL [SQCMP] Order #: [id number] FUTURE CBC + DIFF (FOR REMOTE C USE) [SQRCBCDF] Order #: [id number] FUTURE IRON + TIBC [SQIRON] Order #: [id number] FUTURE FERRITIN BLD [SQFERR] Order #: [id number] FUTURE VITAMIN B12 BLOOD [SQB12] Order #: [id number] FUTURE FOLATE SERUM [SQSERFOL] Order #: [id number] FUTURE METHYLMALONIC ACID [SQMMA] Order #: [id number] FUTURE HEP REMOTE PANEL BL [SQHREMOP] Order #: [id number] FUTURE SED RATE WESTERGREN [SQWSR] Order #: [id number] FUTURE Disposition: Return labs today. f/u 6 [...] THAIS HEBERT DO on 04/03/19 Normal [facility] Comp Metabolic Panelon 04-02 Albumin [Mass/Vol] 4.4 g/dL Normal 3.9-4.9 [facility] ALP [Catalytic activity/Vol] 102 U/L Normal 38-113 [facility] ALT [Catalytic activity/Vol] 53 U/L Normal 10-54 [facility] Anion gap [Moles/Vol] 13 mmol/L Normal 9-18 [facility] AST [Catalytic activity/Vol] 31 U/L Normal 14-40 [facility] Bilirubin [Mass/Vol] 0.6 mg/dL Normal 0.2-1.3 [facility] Calcium [Mass/Vol] 9.6 mg/dL Normal 8.5-10.2 [facility] Chloride [Moles/Vol] 98 mmol/L Normal 97-105 [facility] CO2 [Moles/Vol] 24 mmol/L Normal 22-30 [facility] Creatinine [Mass/Vol] 0.94 mg/dL Normal 0.73-1.22 [facility] eGFR- Amer. >60 Normal [facility] GFR/1.73 sq M predicted among non-blacks MDRD (S/P/Bld) [Vol rate/Area] mL/min/{1.73_m2} Normal [facility] Comment on above: Result Comment: eGFR [...] Glucose [Mass/Vol] 257 mg/dL High 74-99 [facility] Comment on above: Result Comment: The [place] Diabetes As sociation (ADA) provides guidance for [...] Standards of Medical Care in Diabetes 2016, [place] [employer] Association. Diabetes Care. 2016.39(Suppl 1). Potassium [Moles/Vol] 4.8 mmol/L Normal 3.7-5.1 [facility] Protein [Mass/Vol] 7.4 g/dL Normal 6.3-8.0 [facility] Sodium [Moles/Vol] 135 mmol/L Low 136-144 [facility] Urea nitrogen [Mass/Vol] 19 mg/dL Normal 9-24 [facility] Ferritinon 04-02-2019 Ferritin [Mass/Vol] 279.0 ng/mL Normal 30.3-565.7 [facility] Comment on above: Performed By: #### WSR, B12, SERFOL, IRO N, FERR, SERIMM, HREMOP, SERMPA, SEPG, MMA #### [place] [phone] Folate, Serumon 04-02-2019 Folate [Mass/Vol] ng/mL Normal >4.7 [facility] Comment on above: Result Comment: A result of > 20 ng/mL i s not necessarily indicative of a pathologic or treatable condition: it reflects a limitation of the test methodology. Assay reference range: 4.8 to 24.2 ng/mL. Suitable for detection of folate deficiency. Reference: Folate III (Folate III) [package insert V 2.0 Romanian]. [facility], [place], [place]: February 2015. Performed By: #### W SR, B12, SERFOL, IRON, FERR, SERIMM, HREMOP, SERMPA, SEPG, MMA #### [place] [phone] Hepatitis Remote Panelon HBsAg Negative Normal Negative [facility] Comment on above: Performed By: #### WSR, B12, SERFOL, IRO N, FERR, SERIMM, HREMOP, SERMPA, SEPG, MMA #### [place] [phone] Hep B Core Ab,Total Negative Normal Negative [facility] Comment on above: Performed By: #### WSR, B12, SERFOL, IRO N, FERR, SERIMM, HREMOP, SERMPA, SEPG, MMA #### [place] [phone] Hepatitis C Ab IA Negative Normal Negative [facility] Comment on above: Performed By: #### WSR, B12, SERFOL, IRO N, FERR, SERIMM, HREMOP, SERMPA, SEPG, MMA #### [place] [phone] HepB Surface Ab,Qual Negative Normal Negative [facility] Comment on above: Result Comment: NEGATIVE Performed By: #### W SR, B12, SERFOL, IRON, FERR, SERIMM, HREMOP, SERMPA, SEPG, MMA #### [place] [phone] Immunoglobulins GAMon 2018 IgA [Mass/Vol] 323 mg/dL Normal 78-391 [facility] Comment on above: Performed By: #### WSR, B12, SERFOL, IRO N, FERR, SERIMM, HREMOP, SERMPA, SEPG, MMA #### [place] [phone] IgG [Mass/Vol] 981 mg/dL Normal 717-1411 [facility] Comment on above: Performed By: #### WSR, B12, SERFOL, IRO N, FERR, SERIMM, HREMOP, SERMPA, SEPG, MMA #### [place] [phone] IgM [Mass/Vol] 133 mg/dL Normal 53-334 [facility] Comment on above: Performed By: #### WSR, B12, SERFOL, IRO N, FERR, SERIMM, HREMOP, SERMPA, SEPG, MMA #### [place] [phone] Iron and TIBCon 04-02-2019 Iron [Mass/Vol] 80 ug/dL Normal 41-186 [facility] Comment on above: Performed By: #### WSR, B12, SERFOL, IRO N, FERR, SERIMM, HREMOP, SERMPA, SEPG, MMA #### [place] [phone] TIBC 247 ug/dL Normal 232-386 [facility] Comment on above: Performed By: #### WSR, B12, SERFOL, IRO N, FERR, SERIMM, HREMOP, SERMPA, SEPG, MMA #### [facility] [address] [place] [address] Transferrin Saturatn 32 % Normal 15-57 [facility] Comment on above: Performed By: #### WSR, B12, SERFOL, IRO N, FERR, SERIMM, HREMOP, SERMPA, SEPG, MMA #### [place] [address] LDon 04-02-2019 LD 131 U/L Low 135-225 [facility] Comment on above: Performed By: #### WSR, B12, SERFOL, IRO N, FERR, SERIMM, HREMOP, SERMPA, SEPG, MMA #### [place] [address] Methylmalonic Acidon 019 Methylmalonic Acid 232 nmol/L Normal 79-376 [facility] Comment on above: Result Comment: This test was developed and its performance characteristics determined by [facility] [place] ([facility]). It has not been cleared or approved by the FDA. [facility] is regulated under CLIA as qualified to perform high complexity testing. This test is used for clinical purposes. It should not be regarded as investigational or for research. Performed By: #### W SR, B12, SERFOL, IRON, FERR, SERIMM, HREMOP, SERMPA, SEPG, MMA ####[place] [phone] Monclnl Protein, Seron 04-02 K/L Ratio, Serum 1.88 High 0.26-1.65 [facility] Comment on above: Performed By: #### WSR, B12, SERFOL, IRO N, FERR, SERIMM, HREMOP, SERMPA, SEPG, MMA ####[place] [address] [address] [place] [phone] Coggon, Free, Serum 47.1 mg/L High 3.30-19.40 [facility] Comment on above: Result Comment: Test performed by an imm unoturbidimetric assay on Optilite instrument from [facility]. Immunoglobulin free light chain assay results should be interpreted in conjunction with other tests and in correlation with clinical picture. Performed By: #### W SR, B12, SERFOL, IRON, FERR, SERIMM, HREMOP, SERMPA, SEPG, MMA ####[place] [address] [address] [place] [phone] Lambda, Free, Serum 25.0 mg/L Normal 5.7-26.3 [facility] Comment on above: Result Comment: Test performed by an imm unoturbidimetric assay on Optilite instrument from [facility]. Immunoglobulin free light chain assay results should be interpreted in conjunction with other tests and in correlation with clinical picture. Performed By: #### W SR, B12, SERFOL, IRON, FERR, SERIMM, HREMOP, SERMPA, SEPG, MMA ####[place] [address] [address] [place] [phone] MPA Serum IgA 336 mg/dL Normal 78-391 [facility] Comment on above: Performed By: #### WSR, B12, SERFOL, IRO N, FERR, SERIMM, HREMOP, SERMPA, SEPG, MMA ####[place] [phone] [place] [phone] MPA Serum IgG 950 mg/dL Normal 717-1411 [facility] Comment on above: Performed By: #### WSR, B12, SERFOL, IRO N, FERR, SERIMM, HREMOP, SERMPA, SEPG, MMA ####[place] [address] [address] [place] [phone] MPA Serum IgM 136 mg/dL Normal 53-334 [facility] Comment on above: Performed By: #### WSR, B12, SERFOL, IRO N, FERR, SERIMM, HREMOP, SERMPA, SEPG, MMA ####[facility] [place], [place] [phone] Protein [Mass/Vol] No M protein is identified. Normal No M protein is identified . [facility] Comment on above: Performed By: #### WSR, B12, SERFOL, IRO N, FERR, SERIMM, HREMOP, SERMPA, SEPG, MMA ####[place] [phone] [place], [place] [phone] Staff Review Reviewed by Chadd Ackerman MD ([id number]) Normal [facility] Comment on above: Performed By: #### WSR, B12, SERFOL, IRO N, FERR, SERIMM, HREMOP, SERMPA, SEPG, MMA ####[address] [phone] PROGRESSon 04-02-2019 PROGRESS HNO ID: [id number] Author: Thais Hebert Service: ? Author Type: Physician Type: Progress Notes Filed: 04/03/2019 1:15 PM Note Text: PATIENT NAME: Lisa Lugo REFERRING PHYSICIAN: Theron Mendoza MD ([facility], [place]) [address] [facility] [address] PRIMARY CARE PHYSICIAN: Theron Mendoza MD CHIEF [...] PANEL - CBC + DIFF (FOR REMOTE [facility] USE) - IRON + TIBC - [...] questions satisfactorily.. Francois Hebert D.O. Medical Oncologist [facility] [place], [place] Normal [facility] Protein Electrophor.on 04-02 Albumin [Mass/Vol] 3.79 g/dL Normal 3.37-4.23 [facility] Comment on above: Performed By: #### WSR, B12, SERFOL, IRO N, FERR, SERIMM, HREMOP, SERMPA, SEPG, MMA ####[facility] [address] [place], [place] [phone] Alpha 1 Globulin 0.31 gm/dL Normal 0.18-0.31 [facility] Comment on above: Performed By: #### WSR, B12, SERFOL, IRO N, FERR, SERIMM, HREMOP, SERMPA, SEPG, MMA ####[place] [phone] [place] [phone] Alpha 2 Globulin 0.96 gm/dL Normal 0.52-0.97 [facility] Comment on above: Performed By: #### WSR, B12, SERFOL, IRO N, FERR, SERIMM, HREMOP, SERMPA, SEPG, MMA ####[place] [address] [address] [place] [phone] Beta Globulin 1.17 gm/dL Normal 0.84-1.36 [facility] Comment on above: Performed By: #### WSR, B12, SERFOL, IRO N, FERR, SERIMM, HREMOP, SERMPA, SEPG, MMA ####[place] [address] [address] [place] [phone] Gamma Globulin 0.97 gm/dL Normal 0.70-1.44 [facility] Comment on above: Performed By: #### WSR, B12, SERFOL, IRO N, FERR, SERIMM, HREMOP, SERMPA, SEPG, MMA ####[place] [address] [address] [place] [phone] Interpretation SEE COMMENT Normal [facility] Comment on above: Result Comment: No definitive M protein is identified on protein electrophoresis. Performed By: #### W SR, B12, SERFOL, IRON, FERR, SERIMM, HREMOP, SERMPA, SEPG, MMA ####[place] [phone] AveCDav[address] [place] [phone] M Guy Concentratn 0.00 gm/dL Normal 0.00 [facility] Comment on above: Performed By: #### WSR, B12, SERFOL, IRO N, FERR, SERIMM, HREMOP, SERMPA, SEPG, MMA ####[place] [phone], [place] [phone] Protein [Mass/Vol] 7.2 g/dL Normal 6.0-8.4 [facility] Comment on above: Performed By: #### WSR, B12, SERFOL, IRO N, FERR, SERIMM, HREMOP, SERMPA, SEPG, MMA ####[place] [phone], [place] [phone] Protein [Mass/Vol] N/A Normal [facility] Comment on above: Performed By: #### WSR, B12, SERFOL, IRO N, FERR, SERIMM, HREMOP, SERMPA, SEPG, MMA ####[place] [address] [address], [place] [phone] SPE Staff Review Reviewed by Chadd Ackerman MD ([id number]) Normal [facility] Comment on above: Performed By: #### WSR, B12, SERFOL, IRO N, FERR, SERIMM, HREMOP, SERMPA, SEPG, MMA ####[place] [address] [address], [place] [phone] Remote CBCDIF (for [facility] use o nly)on 04-02-2019 Abs Baso <0.03 Normal 0.00-0.10 [facility] Abs Bracken 0.48 k/uL Normal 0.00-0.86 [facility] Abs Neut 4.30 k/uL Normal 1.45-7.50 [facility] Basophils/100 WBC (Bld) 0.2 % Normal [facility] Eosinophils (Bld) [#/Vol] 0.04 10*3/uL Normal 0.00-0.45 [facility] Eosinophils/100 WBC (Bld) 0.7 % Normal [facility] Erythrocyte distribution width (RBC) [Ratio] 13.9 % Normal 11.5-15.0 [facility] Hematocrit (Bld) [Volume fraction] 39.6 % Normal 39.0-51.0 [facility] Hemoglobin (Bld) [Mass/Vol] 12.6 g/dL Low 13.0-17.0 [facility] Lymphocytes (Bld) [#/Vol] 0.84 10*3/uL Low 1.00-4.00 [facility] Lymphocytes/100 WBC (Bld) 14.8 % Normal [facility] MCH (RBC) [Entitic mass] 27.4 pG Normal 26.0-34.0 [facility] MCHC (RBC) [Mass/Vol] 31.8 g/dL Normal 30.5-36.0 [facility] MCV (RBC) [Entitic vol] 86.1 fL Normal 80.0-100.0 [facility] Monocytes/100 WBC (Bld) 8.5 % Normal [facility] Neutrophils/100 WBC (Bld) 75.8 % Normal [facility] Platelet mean volume (Bld) [Entitic vol] 9.7 fL Normal 9.0-12.7 [facility] Platelets (Bld) [#/Vol] 243 10*3/uL Normal 150-400 [facility] RBC (Bld) [#/Vol] 4.60 10*6/uL Normal 4.20-6.00 [facility] WBC (Bld) [#/Vol] 5.67 10*3/uL Normal 3.70-11.00 [facility] Sed Rate Westergrenon 2018 Sed Rate Westergren 41 mm/hr High 0-15 [facility] Comment on above: Performed By: #### WSR, B12, SERFOL, IRO N, FERR, SERIMM, HREMOP, SERMPA, SEPG, MMA #### [facility] [employer] [address] [place], [place] [address] Vitamin B12on 04-02-2019 Cobalamin (Vitamin B12) [Mass/Vol] 595 pg/mL Normal 232-1245 [facility] Comment on above: Performed By: #### WSR, B12, SERFOL, IRO N, FERR, SERIMM, HREMOP, SERMPA, SEPG, MMA #### [facility] [address] [place], [place] [address] Cardiovascular Lab Reporton 04-26-2017 Cardiovascular Lab Report [facility] Patient Name: Lisa Lugo [facility] MR #: [id number] Physician: Jenny Parsons M.D.Medicine Service Date: 04/25/2017Division of Birthdate: 2Cardiology Room #: 3CD [id number] [facility]Serv[facility] [place], [place] [address]Ncstg Fax Cardiovascular Laboratory ReportINDICATION: Mr. Lisa Lugo is a 66-year-old man, known to havecoronary artery disease status post multiple stenting procedures in [facility]. Recently, he presented with transient ST-segment elevation in thesetting of ongoing chest pain. He underwent cardiac catheterization anddrug-eluting stenting of the distal right coronary artery de rachel stenosisas well as drug-eluting stenting of the proximal right coronary arteryin-stent restenosis. At that time, he was found to have jbon-qnnndzv-ntmqh restenosis in the mid LAD. He is [...] angiography was performedfollowed by upsizing to a 6-Malaysian x 11 cm sheath. Heparin wasadministered intravenously and therapeutic ACT confirmed during theprocedure. A 6-Malaysian XB 3.5 guiding catheter was advanced and [...] to the [place]row[place] wire.Angiography was performed. [place] Glimpse [place] 2.5 x 15 mm noncompliantballoon was then [...] 04/25/2017/09:47 A/Jenny Coppola M.D.Date Trans: 04/26/2017 02:28 A/[id number]_JN:[id number]: Theron Mendoza D.O. [address] [place] [address] A [facility] [address] [facility] POC GLUCOSE LABon 04-26-2017 Glucose mass conc 99 mg/dL Normal 70-[address] [facility] Comment on above: Performed By: #### [id number] ####[facility] [facility].[address] CBC COMPLETE BLOOD COUNTon 1 06-26-2016 Erythrocyte distribution width Auto Ratio (RBC) 14.3 % Normal 11.5-16.[address] [facility] Comment on above: Order Comment: Yes: Add to Previous draw if able Performed By: #### 5 0608 ####[facility] [facility].[address] Erythrocytes (RBC) 4.16 mill/mm3 Low 4.30-5.[address] [facility] Comment on above: Order Comment: Yes: Add to Previous draw if able Performed By: #### 5 0608 ####[facility] [facility].[address] Hematocrit (HCT) 34.8 % Low 39.0-55.[address] [facility] Comment on above: Order Comment: Yes: Add to Previous draw if able Performed By: #### 5 0608 ####[place] [address] [facility].[address] Hemoglobin mass conc (Bld) 11.8 g/dL Low 13.9-16.[address] [facility] Comment on above: Order Comment: Yes: Add to Previous draw if able Performed By: #### 5 0608 ####[facility] MCH 28.2 pg Normal 24.0-32.[address] [facility] Comment on above: Order Comment: Yes: Add to Previous draw if able Performed By: #### 5 0608 ####[facility] MCHC mass conc (RBC) 33.8 g/dL Normal 32.0-36.[address] [facility] Comment on above: Order Comment: Yes: Add to Previous draw if able Performed By: #### 5 0608 ####[facility] [facility].[address] MCV 83.6 fL Normal 80.0-100.[address] [facility] Comment on above: Order Comment: Yes: Add to Previous draw if able Performed By: #### 5 0608 ####[facility] [facility].[address] PLAT CNT 198 Thou/mm3 Normal 100-[address] [facility] Comment on above: Order Comment: Yes: Add to Previous draw if able Performed By: #### 5 0608 ####[facility] [facility].[address] WBC (Leukocytes) 3.9 Thou/mm3 Low 4.0-10.[address] [facility] Comment on above: Order Comment: Yes: Add to Previous draw if able Performed By: #### 5 0608 ####[facility] [facility] POC GLUCOSE LABon 04-25-2017 Glucose mass conc 232 mg/dL High 70-[address] [facility] Comment on above: Performed By: #### [id number] ####[facility] Glucose mass conc 281 mg/dL High 70-[address] [facility] Comment on above: Performed By: #### [address] ####[facility] Discharge Summaryon 04-20-20 Discharge Summary MR#: [id number] [facility] Lisa [facility]o Admitted: 04/15/2017 [...] history, requiring stentingin the past, presented to [facility] initially with complaints ofrecurrent chest pain at rest. Initial EKG showed minor ST-segment elevationin the inferior leads, which resolved after administration of IV heparinand nitroglycerin. [facility] and intervention. Heunderwent left heart catheterization with successful balloon dilatation andstenting of 2 lesions. The patient recovered well postprocedure with nofurther recurrence of chest pain. Right femoral access site healed well.DISCHARGE CONDITION: Stable.DISCHARGE DISPOSITION: Home.DISCHARGE MEDICATIONS: Aspirin 81 mg daily, atenolol 25 mg daily, [id number] mg daily, Clopidogrel 75 mg daily, Lantus [...] 04/19/2017/06:17 P/Arely Campos, MDDate Trans: 04/20/2017 07:36 A/[id number]_[id number]: Theron Mendoza D.O. [address] [place] [address] Tino Gunderson M.D. [address] [facility] [address] [facility] BASIC METABOLIC PANELon 12- Calcium 9.0 mg/dL Normal 8.6-10.[address] [facility] Comment on above: Order Comment: No: Do not add to previou s draw Performed By: #### 1 69, [address] ####[facility] [place] [address], [facility] Chloride 104 mmol/L Normal 98-[address] [facility] Comment on above: Order Comment: No: Do not add to previou s draw Performed By: #### 1 0, 0[address] ####[facility] [place] [address], [facility] CO2 24 mmol/L Normal 21-[address] [facility] Comment on above: Order Comment: No: Do not add to previou s draw Performed By: #### 1 0, 633[address] ####[facility] [place] [address], [facility] Creatinine 0.94 mg/dL Normal 0.70-1.[address] [facility] Comment on above: Order Comment: No: Do not add to previou s draw Performed By: #### 1 69, 425[address] ####[facility] [place] [address], [facility] eGFR (black) mL/min/{1.73_m2} Normal >[address] [facility] Comment on above: Order Comment: No: Do not add to previou s draw Performed By: #### 1 69, 23573 ####[facility] [place] [address], [facility] eGFR (non-black) mL/min/{1.73_m2} Normal >[address] [facility] Comment on above: Order Comment: No: Do not add to previou s draw Performed By: #### 1 69, [address] ####[facility] [place] [address], [facility] Glucose mass conc 182 mg/dL High 70-[address] [facility] Comment on above: Order Comment: No: Do not add to previou s draw Performed By: #### 1 69, ####[facility] [place] [address], [facility] Potassium molar conc 3.9 mmol/L Normal 3.5-5.[address] [facility] Comment on above: Order Comment: No: Do not add to previou s draw Performed By: #### 1 69, ####[facility] [place] [address], [facility] Sodium 138 mmol/L Normal 136-[address] [facility] Comment on above: Order Comment: No: Do not add to previou s draw Performed By: #### 1 69, 10632 ####[facility] [place] [address], [facility] Urea nitrogen 18 mg/dL Normal 7-[address] [facility] Comment on above: Order Comment: No: Do not add to previou s draw Performed By: #### 1 69, [address] ####[facility] [facility].[address] CBC COMPLETE BLOOD COUNTon 06-17-2016 Erythrocyte distribution width Auto Ratio (RBC) 14.7 % Normal 11.5-16.[address] [facility] Comment on above: Order Comment: No: Do not add to previou s draw Performed By: #### 5 0608 ####[facility] Erythrocytes (RBC) 4.37 mill/mm3 Normal 4.30-5.[address] [facility] Comment on above: Order Comment: No: Do not add to previou s draw Performed By: #### 5 0608 ####[facility] Hematocrit (HCT) 36.5 % Low 39.0-55.[address] [facility] Comment on above: Order Comment: No: Do not add to previou s draw Performed By: #### 5 0608 ####[facility] [facility].[address] Hemoglobin mass conc (Bld) 12.3 g/dL Low 13.9-16.[address] [facility] Comment on above: Order Comment: No: Do not add to previou s draw Performed By: #### 5 0608 ####[facility] [facility].[address] MCH 28.0 pg Normal 24.0-32.[address] [facility] Comment on above: Order Comment: No: Do not add to previou s draw Performed By: #### 5 0608 ####[facility] [facility] MCHC mass conc (RBC) 33.5 g/dL Normal 32.0-36.[address] [facility] Comment on above: Order Comment: No: Do not add to previou s draw Performed By: #### 5 0608 ####[facility] [facility].[address] MCV 83.5 fL Normal 80.0-100.[address] [facility] Comment on above: Order Comment: No: Do not add to previou s draw Performed By: #### 5 0608 ####[facility] [facility] [facility].[place], [place] [id number] [place] [address] PLAT CNT 167 Thou/mm3 Normal 100-[address] [facility] Comment on above: Order Comment: No: Do not add to previou s draw Performed By: #### 5 [id number] ####[facility] WBC (Leukocytes) 4.7 Thou/mm3 Normal 4.0-10.[address] [facility] Comment on above: Order Comment: No: Do not add to previou s draw Performed By: #### [id number] ####[facility] [address] Cardiovascular Lab Reporton 04-16-2017 Cardiovascular Lab Report [facility] Patient Name: Lisa Lugo [facility] MR #: [id number] Physician: Jenny Parsons M.D.Medicine Service Date: 04/15/2017Division of Birthdate: 2Cardiology Room #: 3AB [id number] [place] [address]Phone Fax Cardiovascular Laboratory ReportINDICATION: Lisa Lugo is a 66-year-old man, known to have coronaryartery disease, status post multiple stenting procedures in the past, [facility] with recurrent chest pain at rest. Heinitially had minor ST elevations in the inferior leads that resolved afteradministration of intravenous heparin and nitroglycerin. Because ofrecurrent chest pain, he was transferred emergently to our label paster fordiagnostic angiography and intervention.PROCEDURE:1. Bilateral selective coronary [...] EMS services. He was placed on the label paster table.Both groin areas were prepped and draped in usual fashion. Usingmicropuncture technique, access in the right common femoral artery wasobtained and the inner cannula was advanced. Limited femoral angiographywas performed followed by upsizing to a 6-Malaysian x 11 cm sheath. Bilateralselective coronary angiography was then performed using 6-Malaysian JL4 andJR4 diagnostic catheters.Heparin was administered intravenously and therapeutic ACT confirmed duringthe procedure. A 6-Malaysian JR4 guiding catheter was advanced and used toengage the right coronary ostium. A Prowater wire was advanced into thedistal RCA. Balloon dilatation in the distal RCA was performed usingEmerge 2.0 x 12 mm balloon and inflated at 12 atmospheres. Angiographyrevealed suboptimal results. This was treated using a PROMUS Premier 2.5 x16 mm drug-eluting stent, deployed at 11 atmospheres and post dilated usingNC Quantum Elgin 2.5 x 8 mm noncompliant balloon inflated [...] in-stent restenosis was performed using NC Quantum Elgin 3.0 x8 mm noncompliant balloon inflated at 14 atmospheres followed by additionaldilatation using NC Quantum Elgin 3.0 x 12 mm noncompliant balloon inflatedat [...] 14atmospheres and post dilated using NC Quantum Elgin 3.25 x 20 mmnoncompliant balloon inflated at 20 atmospheres throughout the length ofthe stent. Final angiography after administration of intracoronarynitroglycerin showed excellent result with reduction of the stenosis to 0%.No evidence of dissection or perforation. The guiding catheter wasremoved. The procedure was concluded. The right femoral arteriotomy wasmanaged with a 6-Malaysian Perclose device with good hemostasis. The patientwas [...] 04/15/2017/06:14 P/Jenny Coppola M.D.Date Trans: 04/16/2017 07:04 A/[id number]: Theron Mendoza D.O. [address] [place] [id number] Tino Gunderson M.D. [address] [place] [address] [facility] MAGNESIUM BLOODon 04-16-2017 Magnesium 1.9 mg/dL Normal 1.9-2.[address] [facility] Comment on above: Order Comment: No: Do not add to previou s draw Performed By: #### 1 [id number], [id number] ####[facility] [address] POC GLUCOSE LABon 04-16-2017 Glucose mass conc 173 mg/dL High 70-[address] [facility] Comment on above: Performed By: #### [id number] ####[facility] Glucose mass conc 228 mg/dL High 70-[address] [facility] Comment on above: Performed By: #### [id number] ####[facility].[address] POC GLUCOSE LABon 04-15-2017 Glucose mass conc 214 mg/dL High 70-[address] [facility] Comment on above: Performed By: #### [id number] ####[facility] Vital Signs Date Time Vital Sign Value Performing Clinician Facility 12-18-2023 13:53-0400 Blood Pressure Location Chadd BARBOUR [facility] [place] 12-18-2023 13:53-0400 Diastolic blood pressure 74 mm[Hg] Chadd NILL [facility] 12-18-2023 13:53-0400 Heart rate 70 /min Chadd NILL [facility] 12-18-2023 13:53-0400 Respiratory rate 16 /min Chadd NILL [facility] 12-18-2023 13:53-0400 Systolic blood pressure 126 mm[Hg] Chadd NILL [facility] 11-05-2023 13:43-0400 Body height 177.8 cm [facility] 11-05-2023 13:43-0400 Body mass index (BMI) [Ratio] 25.7 kg/m2 [facility] 11-05-2023 13:43-0400 Body weight 81.24 kg [facility] 11-05-2023 13:43-0400 Diastolic blood pressure 71 mm[Hg] [facility] 11-05-2023 13:43-0400 Heart rate 71 /min [facility] 11-05-2023 13:43-0400 Respiratory rate 12 /min [facility] 11-05-2023 13:43-0400 Systolic blood pressure 121 mm[Hg] [facility] 10-01-2023 12:35-0400 Blood Pressure Location DOMINGA PRESLEY [facility] 10-01-2023 12:35-0400 Diastolic blood pressure 78 mm[Hg] DOMINGA SAKINA [facility] 10-01-2023 12:35-0400 Heart rate 72 /min DOMINGA SAKINA [facility] 10-01-2023 12:35-0400 Respiratory rate 16 /min DOMINGA SAKINA [facility] 10-01-2023 12:35-0400 Systolic blood pressure 137 mm[Hg] DOMINGA PRESLEY [facility] 04-02-2023 09:30-0500 Body height 177.8 cm Theron Ball Other [facility] Other 04-02-2023 09:30-0500 Body mass index (BMI) [Ratio] 25.97 kg/m2 Theron Ball Other [facility] Other 04-02-2023 09:30-0500 Body weight 82.1 kg Theron Ball Other [facility] Other 04-02-2023 09:30-0500 Diastolic blood pressure 85 mm[Hg] Theron Ball Other [facility] Other 04-02-2023 09:30-0500 Respiratory rate 12 /min Theron Ball Other [facility] Other 04-02-2023 09:30-0500 Systolic blood pressure 135 mm[Hg] Theron Ball Other [facility] Other 11-01-2022 10:00-0400 Body height 177.8 cm Theron Ball Other [facility] Other 11-01-2022 10:00-0400 Body mass index (BMI) [Ratio] 25.77 kg/m2 Theron Ball Other [facility] Other 11-01-2022 10:00-0400 Body weight 81.47 kg Theron Ball Other [facility] Other 11-01-2022 10:00-0400 Diastolic blood pressure 71 mm[Hg] Theron Ball Other [facility] Other 11-01-2022 10:00-0400 Respiratory rate 12 /min Theron Ball Other [facility] Other 11-01-2022 10:00-0400 Systolic blood pressure 124 mm[Hg] Theron Ball Other [facility] Other 10-03-2022 13:45-0400 Body height 177.8 cm Theron Ball Other [facility] Other 10-03-2022 13:45-0400 Body mass index (BMI) [Ratio] 26.23 kg/m2 Theron Ball Other [facility] Other 10-03-2022 13:45-0400 Body weight 82.92 kg Theron Ball Other [facility] Other 10-03-2022 13:45-0400 Diastolic blood pressure 76 mm[Hg] Theron Ball Other [facility] Other 10-03-2022 13:45-0400 Respiratory rate 12 /min Theron Ball Other [facility] Other 10-03-2022 13:45-0400 Systolic blood pressure 160 mm[Hg] Theron Ball Other [facility] Other 11-20-2021 12:31-0400 Blood Pressure Location Tom ARGUETA [facility] 11-20-2021 12:31-0400 Diastolic blood pressure 80 mm[Hg] Tom ARGUETA [facility] 11-20-2021 12:31-0400 Heart rate 74 /min Tom ARGUETA [facility] 11-20-2021 12:31-0400 Respiratory rate 16 /min Tom ARGUETA [facility] 11-20-2021 12:31-0400 Systolic blood pressure 133 mm[Hg] Tom ARGUETA [facility] [place] Encounters Encounter Date Encounter Type Care Provider Facility Start: 03-23-2024 End: 03-23-2024 ambulatory Natali Weir MD Facility: [facility] Start: 01-08-2024 ambulatory Chadd BARBOUR Facility : [place] Start: 01-06-2024 End: 01-06-2024 ambulatory Natali Weir MD Facility: [facility] Start: 01-01-2024 End: 01-01-2024 ambulatory Chadd BARBOUR Facility:CD:[id number] Start: 12-18-2023 End: 12-18-2023 ambulatory Chadd BARBOUR Facility: [place] Start: 12-18-2023 End: 12-18-2023 Patient encounter procedure Chadd BARBOUR [facility] [place] Start: 12-16-2023 End: 12-16-2023 ambulatory Natali Weir MD Facility: [facility] Start: 12-02-2023 End: 12-02-2023 ambulatory Natali Weir MD Facility: [place] Start: 11-18-2023 End: 11-18-2023 ambulatory Natali Weir MD Facility: [place] Start: 11-05-2023 End: 11-05-2023 ambulatory [facility] Work Phone: Start: 11-05-2023 End: 11-05-2023 Patient encounter procedure [facility] Physician [facility] Work Phone: Start: 11-05-2023 Non-patient / Non-visit [facility] Work Phone: Start: 10-01-2023 End: 10-01-2023 ambulatory DOMINGAJEN PRESLEY Facility:[facility] Start: 10-01-2023 End: 10-01-2023 Patient encounter procedure DOMINGA PRESLEY [facility] Start: 09-17-2023 Non-patient / Non-visit [facility] Physician [facility] Work Phone: Start: 04-03-2023 End: 04-03-2023 ambulatory Theron Mendoza Other [facility] Other Start: 04-03-2023 Telephone encounter Theron Ball [facility] Start: 04-02-2023 End: 04-02-2023 ambulatory Theron Matt Other [facility] Other Start: 04-02-2023 Office outpatient vi sit 25 minutes Theron Matt [facility] Start: 04-01-2023 End: 04-01-2023 ambulatory Theron Ball Other [facility] Other Start: 04-01-2023 Telephone encounter Theron Ball [facility] Start: 01-07-2023 End: 01-07-2023 ambulatory Theron Ball Other [facility] Other Start: 01-07-2023 Telephone encounter Theron Ball [facility] Start: 11-01-2022 End: 11-01-2022 ambulatory Theron Ball Other [facility] Other Start: 11-01-2022 Patient encounter procedure Theron Mendoza [facility] Start: 10-03-2022 End: 10-03-2022 ambulatory Theron Mendoza Other [facility] Other Start: 10-03-2022 Office outpatient vi sit 15 minutes Theron Matt [facility] Start: 10-03-2022 Telephone encounter Theron Mendoza [facility] Start: 04-30-[address] THERON MENDOZA Facili ty:[facility]1 Start: 03-29-2022 End: 03-30-[address] THERON MENDOZA Facility:[facility] Start: 11-25-2021 End: 11-26-[address] THERON MENDOZA Facility:[facility] Start: 11-24-2021 End: 11-25-[address] THERON MENDOZA Facility:[facility] Start: 11-22-2021 Adult health examination Theron Matt Other [facility] Other Start: 11-20-2021 End: 11-20-2021 Patient encounter procedure Tom ARGUETA [facility] Start: 09-14-2021 End: 09-15-[address] THERON MENDOZA Facility:[facility] Start: 09-10-2017 End: 09-11-2017 Ambulatory DEFAULT PHYSICIAN Facility:[facility] Start: 04-25-2017 End: 04-26-2017 Ambulatory PROVIDER UNKNOWN Facility:[facility] Start: 04-15-2017 End: 04-16-2017 Evaluation and management of inpatient THERON MENDOZA Facility:[facility] Procedures Date Procedure Procedure Detail Performing Clinician Start: 04-08-2018 Cystoscopy Tom STUART Start: 04-15-2017 DILATION OF 2 COR AR T WITH 2 DRUG-ELUT, PERC APPROACH JENNY COPPOLA Start: 10-14-2015 General examination of patient Theron Mendoza Other Start: 10-14-2015 Screening for malign ant neoplasm of colon Tehron Mendoza Other Start: 10-14-2015 Screening for malign [...] Arthroscopy of knee Tom ARGUETA Cardiac catheterization Anderw leilasantosh CHARLIESantosh Depression screening Rasheed Mendoza Other Operation on heart Tom Kianna MARTINEZ Placement of stent i n cardiac conduit Tom ARGUETA Placement of stent i n coronary artery Chadd BARBOUR Plan of Treatment Date Care Activity Detail Author Start: 10-02-2024 ambulatory Ambulatory Facility:[facility] [place] XR Lumbar spine Views [facility] XR Pelvis 1 or 2 Views [facility] Immunizations Immunization Date Immunization Notes Care Provider Fa marybeth 04-03-2022 influenza virus vaccine, split virus (incl. purified surface antigen) Theron Mednoza Other [facility] Other 04-03-2022 influenza virus vaccine, unspecified formulation [facility] 04-03-2022 Prevnar 20 Theron Mendoza Other [facility] 03-28-2021 influenza virus vaccine, split virus (incl. purified surface antigen) Theron Mendoza Other [facility] Other 03-28-2021 influenza virus vaccine, unspecified formulation DOMINGA PRESLEY [facility] 04-03-2018 diphtheria, tetanus toxoids and acellular pertussis vaccine, unspecified formulation Theron Mendoza Other [facility] pneumococcal Conjuga te, unspecified formulation; Translations: [Need for prophylactic vaccination against Streptococcus pneumoniae (pneumococcus)] Theron Mendoza Other [facility] Other Payers Date Payer Category Payer Private Health Insurance 2016 Unknown 1958 Medicare [id number] 1959 Private Health Insurance [id number] 1959 Self-pay [id number] 1950 Unknown [id number] 2.16.84 [id number] 1950 Unknown [id number] 2.16.84 0.1.787855.3.579.2.593 1950 Unknown [id number] 2.16.84 0.1.451518.3.579.2.593 1951 Unknown [id number] 2.16.84 0.1.453877.3.579.2.593 1951 Unknown [id number] 2.16.84 0.1.627322.3.579.2.593 1951 Unknown [id number] 2.16.8 40.1.322795.3.579.2.727 1950 Unknown [id number] 2.16.8 40.1.660239.3.579.2.727 1951 Unknown [id number] 2.16.8 40.1.203445.3.579.2.727 1951 Unknown [id number] 2.16.8 40.1.348390.3.579.2.727 1951 Unknown [id number] 2.16.8 40.1.141401.3.579.2.727 1951 Unknown [id number] 2.16. 840.1.384705.3.579.2.196 1950 Unknown [id number] 2.16. 840.1.231214.3.579.2.196 1951 Unknown [id number] 2.16. 840.1.776949.3.579.2.196 1950 Unknown [id number] 2.16. 840.1.892990.3.579.2.196 1950 Unknown [id number] 2.16. [id number] Medicare [id number] Social History Date Type Detail Facility Start: 04-10-2021 End: 12-18-2023 Tobacco smoking status Ex-smoker (finding) [facility] Sex Assigned At Male [facility] Tobacco smoking status Never [facility] Start: 11-05-2023 Tobacco smoking stat us WAIS Never smoked tobacco (finding) [facility] Start: 1950 Sex Assigned At Male [facility] Medical Equipment Procedure Code Equipment Code Equipment Origin al Text Equipment Identifier Dates BD Pen Needle Sh ort U/F 31G X 8 MM Start: 01-07-2023 Functional Status Date Assessment Result Facility 12-18-2023 Functional Status N/A [facility] [place] 10-01-2023 Functional Status N/A [facility] 11-20-2021 Functional Status N/A [facility] Clinical Notes 11-20-2021 to 12-18-2023 Note [...] Daily pioglitazone 1 (more content not included)... [facility] Comment on above: Result Comment: Elec tronically [...] urethra. Follow these instructions at home: Take etdp-flz-apemmqj and prescription medicines only as told by [...] provider. Document Revised: 11/01/2021 Document Reviewed: 11/01/2021 [employer] Patient Education 2022 [employer] Follow Up Care 09/17/2022 11:39:15 With:DOMINGA PRESLEY PA-C, URL Address: [address] [place] [address] When: Unknown [facility] 04-02-2023 Evaluation note Encounter Date Diagnosis Assessment [...] risk for cerebrovascular and cardiovascular disease. Mar, half-way (current) use of insulin (ICD-10 - Z79.4) [...] dyspnea, CP or lightheadedness _update office tomorrow [facility] Other 12-04-2023 Evaluation note* Encounter Date Diagnosis Assessment Notes Treatment Notes Treatment Clinical Notes Mar, Primary hypertension (ICD-10 - I10) Mar, Type 2 diabetes mellitus with hyperglycemia (ICD-10 - E11.65) Mar, Mixed hyperlipidemia (ICD-10 - E78.2) Mar, ASHD (arteriosclerotic heart disease) (ICD-10 - I25.10) Mar, High risk medication use (ICD-10 - Z79.899) [facility] Other 09-11-2023 Evaluation note* Encounter Date Diagnosis Assessment Notes Treatment Notes Treatment Clinical Notes Dec, Type 2 diabetes mellitus with hyperglycemia (ICD-10 - E11.65) [facility] Other 07-06-2023 Evaluation note* Encounter Date Diagnosis [...] risk for cerebrovascular and cardiovascular disease. 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 They are also encouraged to continue exercise to achieve/maintain a normal BMI. Oct, Screening PSA (prostate specific antigen) (ICD-10 - Z12.5) Completed w/ , normal [facility] Other 06-07-2023 Evaluation note* Encounter Date Diagnosis [...] to achieve/maintain a normal BMI. Avoid NSAIDs [facility] Other 07-25-2022 Hospital Discharge instructions Patient Education [...] Follow these instructions at home: Medicines Take yhzq-nyb-xicqlem and prescription medicines only as told by [...] or the blood stops without treatment. Take vprg-nzh-zlrcohg and prescription medicines only as told by your health care provider. Drink enough fluid to keep your urine clear or pale yellow. This information is not intended to replace advice given to you by your health care provider. Make sure you discuss any questions you have with your health care provider. Document Released: 04/15/2006 Document Revised: 09/09/2019 Document Reviewed: 05/18/2017 [employer] Patient Education 2020 [employer] Follow Up Care 09/21/2021 10:23:43 With:Tom ARGUETA MD, URL Address: [facility] [address], [place] [phone] When: Unknown [facility] evaluation + Plan note Future Appointments Appointment Date:11/28/2021 08:45:00 AM Scheduled Provider: Location:[facility] Appointment Type:Urology CALL PAT FT Appointment Date:12/12/2021 10:30:00 AM Scheduled Provider: Location:[facility] Appointment Type:Urology FT Appointment Date:04/13/2022 10:45:00 AM Scheduled Provider:Tom ARGUETA MD Location:[facility] Appointment Type:URO Office Visit [facility] evaluation + Plan note Future Appointments Appointment Date:10/02/2024 10:15:00 AM Scheduled Provider:Tom ARGUETA MD Location:[facility] Appointment Type:URO Office Visit Diagnostic Tests Pending * PSA Total 10/01/23 [facility] evaluation + Plan note Future Appointments Appointment Date:10/02/2024 10:15:00 AM Scheduled Provider:Tom ARGUETA MD Location:[facility] Appointment Type:URO Office Visit [facility] Other Evaluation note* Diagnosis Onset Date Resolution Status Anemia acute ASHD (arteriosclerotic heart disease) acute GERD (gastroesophageal reflux disease) acute Hypercholesterolemia acute Hypertension acute Type 2 diabetes mellitus with hyperglycemia acute Medicare annual wellness visit, subsequent noneactive Screening for colon cancer n oneactive [facility] Work Phone: History general Narrative - Reported* Type Description Date Medical History ASHD Medical History HTN Medical History Hyperlipidemia Medical History T2DM Medical History GERD Surgical History ANGIOPLASTY Surgical History [facility] PCI/stent RCA and LAD 2007 Surgical History [facility] PCI/stent RCA 2016 Surgical History C PCI/stent OM and LCx 2016 Surgical History C PCI/stent RCA x 2 2017 Surgical History [facility] PCI/stent LAD 2017 Surgical History TURP, TRUS/bx 2009 Surgical History Arthroscopy right knee 2005, 20 14 Surgical History Arthroscopy left knee 2004 Hospitalization History see surgical history [facility] Other Hospital course Narrative No data available for this section [facility] Hospital Discharge instructions No data available for this section [facility] Progress note No data available for this section [facility] reason for referral (narrative)* Reason Referral for interna l derangement right knee Diagnosis 1 Internal derangement of right knee (M23.91) Referral Organization [facility] bhargav Referring Provider First Name Theron Referring Provider Last Name Matt Referring Provider Specialty Internal Me dicine Referred Organization Unknown Facility Referred Provider Jenny Mccbae Jr Referred Provider Specialty Orthopedic S urgery [...] Notes MRI right knee to be included [facility] Other Summary Purpose Family History No Family [...] section and content) DATE CREATED AUTHOR 10/16/2017 [facility] DATE CREATED AUTHOR AUTHOR'S ORGANIZ ATION 04/04/2019 [facility] DATE CREATED AUTHOR AUTHOR'S ORGANIZ ATION 04/30/2022 [facility] DATE CREATED AUTHOR AUTHOR'S ORGANIZ ATION 01/08/[address] [facility] DATE CREATED AUTHOR AUTHOR'S ORGANIZ ATION 03/29/2024 [facility] Care Team (unrecognized sect ion and [...] (unrecogniz ed section and content) Wants in [facility] [place] InformationNo InformationBlood Work?Check UpUpdate [...] BE BASED ON THE PRIMARY CLINICAL RECORDS. [facility] [employer] [facility]. provides no warranty or guarantee of the accuracy or completeness of information in this document.
--- NOTE | 2024-04-16 10:26 | P.CN_ITS ---
Consult Note: HPI Data of Consult Patient: known to practice within the last 3 years Consult date: 12/02/23 Requesting Physician: Lisa Barcenas NP Primary Care Provider: Theron Lora DO Consult Narrative Reason for consult: low back pain Narrative: 73yom who presents for assessment. imaging reviewed, which is significant for moderate to severe spondylosis and stenosis at l4-5 and l5-s1. continues in physical therapy and provider directed home exercises, without lasting benefit. uses tylenol as needed. denies adverse med side effects. previous bilateral l4-5 TFESI and L5-S1 TFESI providing >50% improvement ongoing, noticing increase in bilateral low back hip pain, feels like a deep ache and stiffness. recently underwent bilateral L4/5 L5/S1 MBB #1 and #2 with 90% improvement in pain and functional ability immediately following and hours after. pain today 2/10 stabbing in low back, increasing to 8/10 with standing and walking. cc:: CC: Lisa Barcenas NP Review of Systems ROS Status of ROS 10 or more systems reviewed and unremark able except as noted in history and below Musculoskeletal Reports: back pain PFSH PFSH Medical History (Updated 03/18/24 @ 09:27 by Lisa Barcenas NP) Lymphocytopenia ?D72.810 - Lymphocytopenia (ICD-10) Lumbar spondylolysis ?M43.06 - Spondylolysis, lumbar region (ICD-10) History of nephrolithiasis ?Z87.442 - Personal history of urinary calculi (ICD-10) Epidermal cyst of neck ?L72.0 - Epidermal cyst (ICD-10) Chronic prostatitis ?N41.1 - Chronic prostatitis (ICD-10) BPH with urinary obstruction ?N40.1 - Benign prostatic hyperplasia with lower urinary tract symptoms (ICD- 10) ?N13.8 - Other obstructive and reflux uropathy (ICD-10) Anemia ?D64.9 - Anemia, unspecified (ICD-10) Coronary artery disease ?I25.10 - Atherosclerotic heart disease of [place] coronary artery without angina pectoris (ICD-10) Osteoarthritis ?M19.90 - Unspecified osteoarthritis, unspecified site (ICD-10) Acid reflux ?K21.9 - Gastro-esophageal reflux disease without esophagitis (ICD-10) Diabetes ?E11.9 - Type 2 diabetes mellitus without complications (ICD-10) High cholesterol ?E78.00 - Pure hypercholesterolemia, unspecified (ICD-10) HTN (hypertension) ?I10 - Essential (primary) hypertension (ICD-10) Myocardial infarct ?I21.9 - Acute myocardial infarction, unspecified (ICD-10) Surgical History History of arthroscopy of knee ?Z98.890 - Other specified postprocedural states (ICD-10) History of cardiac catheterization ?Z98.890 - Other specified postprocedural states (ICD-10) History of prostate biopsy ?Z98.890 - Other specified postprocedural states (ICD-10) History of transurethral resection of prostate ?Z98.890 - Other specified postprocedural states (ICD-10) ?Z90.79 - Acquired absence of other genital organ(s) (ICD-10) History of colonoscopy ?Z98.890 - Other specified postprocedural states (ICD-10) History of cystoscopy ?Z98.890 - Other specified postprocedural states (ICD-10) History of heart artery stent ?Z95.5 - Presence of coronary angioplasty implant and graft (ICD-10) Family History Other Family history of hypertension Heart disease Social History Within the past year, how often did you have a drink containing alcohol: monthly or less Smoking status: Former smoker Non-prescribed substance use: denies use 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 Highest level of school completed/degree received: some college, no degree Meds Home Medications and Allergies Home Medications ?Medication ?Instructions ?Recorded ?Confirmed ?Type aspirin 81 mg capsule 81 mg PO DAILY 11/18/23 04/13/24 History atenolol 25 mg tablet 25 mg PO Q24H 11/18/23 04/13/24 History atorvastatin 80 mg tablet 80 mg PO DAILY 11/18/23 04/13/24 History clopidogrel 75 mg tablet 75 mg PO DAILY 11/18/23 04/13/24 History insulin glargine 100 unit/mL (3 50 unit subcut DAILY 11/18/23 04/13/24 History mL) subcutaneous pen (Lantus Solostar U-100 Insulin) pantoprazole 40 mg tablet,delayed 40 mg PO DAILY 11/18/23 04/13/24 History release pioglitazone 15 mg tablet 15 mg PO DAILY 11/18/23 04/13/24 History baclofen 10 mg tablet 10 mg PO TID 03/18/24 04/13/24 History Allergies Allergy/AdvReac Type Severity Reaction Status Date / Time metformin AdvReac Diarrhea Verified 04/13/24 08:40 Exam Narrative Exam Narrative: Psych-alert and oriented x 3. Attentive and appropriate, constitutionally normal, displays normal mood and affect per situation. There are no obvious deficits in memory, reasoning, or intellect.? Skin-no obvious rashes, bruising, erythema noted to the patient's area of pain.? Extremities- extremities are warm with minimal edema and palpable pulses. Lumbar-tenderness to palpation noted in the lumbar spine and paraspinal musculature. Pain is elicited with flexion, extension, and lateral rotation of the lumbar spine. Range of motion is diminished with these motions. Facet loading maneuvers are positive. Strength-noted to be unremarkable Sensory-no notable sensory deficits in the bilateral lower extremities to touch or pinprick in all dermatomal distributions Coordination remains intact.? Gait remains non-antalgic. Results Additional Findings Additional findings: If on a controlled substance or opioids, I have checked an [place] report on this patient and there are no aberrancies noted in the prescribing history.??If on a controlled substance or opioid a drug screen was completed and reviewed within the last year, and if there has not been a drug screen completed we ordered one today to monitor higher risk, state monitored pain medication use. As part of providing excellent, safe, comprehensive care, the following was completed at our patient's visit: 1. A medication reconciliation and review to ensure accurate knowledge of current/active medications, including asking our patients to inform us about any [id number] medications or herbal remedies/nutritional supplements/alternative remedies. 2. A review to specifically ensure our patients have had annual screening for screening for depression, screening for tobacco use, and screening for unhealthy alcohol use. For concerning screenings had a discussion with the patient, provided patient education, and recommended follow-up with primary care provider when appropriate. If patient noted with a risk of falling, they received education on strength, gait, and balance training to prevent future risk of falling. Assessment and Plan Assessment and Plan (1) Lumbar spondylosis: (2) Lumbar stenosis with neurogenic claudication: (3) Myalgia: Plan bilateral L4-5 L5-S1 facet RFA under fluoroscopy, risks vs benefits reviewed continue HEP as tolerated continue baclofen 5-10mg TID PRN pain/spasms f/u 1 month after RFAs
== END 2024-04-16 10:03 | disposition home or self-care (01) ==
LOC: PM 10:02
PROVIDERS: PCP Internal Medicine; Visit Provider Nurse Practitioner
DX: M47.816 Spondylosis without myelopathy or radiculopathy, lumbar region (principal); M48.062 Spinal stenosis, lumbar region with neurogenic claudication; M79.18 Myalgia, other site
CPT/HCPCS: G0463

== ENCOUNTER 2024-04-27 09:21 | Day surgery (SDC) | payer MEDICARE, OTHER, SELFPAY ==
[2024-04-27 10:26] VITALS: BP 144/81; PULSE 64; TEMP 36.4; O2SAT 97
[2024-04-27 10:28] LABS: Glucometer 160 mg/dL (74-106)
[2024-04-27 10:59] VITALS: BP 189/78; PULSE 70; O2SAT 98
[2024-04-27 11:00] VITALS: BP 171/77; PULSE 68; O2SAT 99
[2024-04-27] MEDS: LIDOCAINE HCL 2% 400 MG/20 ML MDV 16 ML INJ (11:15)
[2024-04-27] MEDS: METHYLPREDNISOLONE ACETATE 40 MG/ML VIAL 80 MG INJ (11:15)
[2024-04-27] MEDS: BUPIVACAINE HCL 0.25% PF 25 MG/10 ML VIAL 4 ML INJ (11:15)
--- NOTE | 2024-04-27 11:16 | P.ON_ITS ---
Date of procedure: 04/27/24 Pre-op diagnosis: Pain due to lumbar spondylosis without myelopathy Post-op diagnosis: same as pre-op Procedure: Procedure: Bilateral L4-5, L5-S1 radiofrequency ablation Medications: Bupivacaine 0.25% 6cc, lidocaine 2% 6cc, depomedrol 80mg The patient was seen and examined in the preoperative holding area.? The site was marked.? Written informed consent was obtained and placed on the chart.? The patient was brought to the medical procedure unit and placed in the prone position.? A timeout was completed verifying correct patient, procedure, positioning, and special requirements.? The skin overlying the target points, the designated medial branch, were prepped and draped in the usual sterile fashion.? The target point was achieved with a 20-gauge 15 cm with a 10 mm curved active tip radiofrequency cannula under direct fluoroscopic visualizati on.? The needle was inserted at level L4 on the right side. Needle tip position was confirmed with lateral fluoroscopic position.? Motor stimulation was carried out at 2 Hz up to 5 volts with the absence of extremity activity.? This was repeated at level L5, S1 on right side.?? Sensory stimulation was carried out.? Concordant pain was realized at the above- mentioned sites.? Then radiofrequency lesioning was carried out times 90 seconds at 80 degrees times 2 lesions at each level.? The radiofrequency probe was removed prior to cannula removal.? The above-mentioned injectate was placed in 1 mL increments.? The needle was removed. The same procedure, with the same steps, was then completed on the left side at the same levels. Insertion sites were covered.? The patient was taken to the postoperative recovery area and monitored for an appropriate length of time before being found suitable for discharge in the company of a responsible adult. Anesthesia: Local Surgeon: Natali Weir Pathology: none sent Condition: stable Disposition: no change
== END 2024-04-27 11:35 | disposition home or self-care (01) ==
LOC: SURGOUT 09:21
PROVIDERS: PCP Internal Medicine; Visit Provider Anesthesiology
DX: M47.816 Spondylosis without myelopathy or radiculopathy, lumbar region (principal); E11.9 Type 2 diabetes mellitus without complications; Z79.4 Long term (current) use of insulin
CPT/HCPCS: 36415; 64635; 64636; 82948; J0665; J1010

== ENCOUNTER 2024-09-25 07:28 | Outpatient (OUT) | payer MEDICARE, OTHER, SELFPAY ==
--- OUTSIDE RECORDS SUMMARY | 2024-09-25 07:31 | XMS_ITS | Clinical Summary ---
Author Organization [facility] Address [address] [place] [address] Care Team Providers Care Crust Sorter Name Role Phone Theron Lora Primary Care Provider [phone] Allergies No known active allergies Medications pioglitazone (Actos) 15 MG tablet 10/30/2022 Active pantoprazole (ProtoNix) 40 MG EC tablet Take 40 mg by mouth in the morning. Active Lantus SoloStar 100 UNIT/ML pen Acti ve atorvastatin (Lipitor) 80 MG tablet Take 1 tablet every day by oral route for 90 days. Active atenolol (Tenormin) 25 MG tablet Take 25 mg by mouth in the morning. Active Family History Medical History Relation Name Comments Diabetes Father Heart disease Father Hypertension Father Relation Name Status Comments Father Mother Social History Tobacco Use Types Packs/Day Years Used Date Smoking Tobacco: Former Cigarettes Smokeless Tobacco: Never Tobacco Cessation:Counseling Given: Not Answered Alcohol Use Standard Drinks/Week Comments Not Currently 0 (1 standard drink = 0.6 oz pur e alcohol) Sex and Gender Information Value Date Recorded Sex Assigned at Not on file Legal Sex Male 8:28 PM EDT Gender Identity Not on file Sexual Orientation Not on file Last Filed Vital Signs Vital Sign Reading Time Taken Comments Blood Pressure - - Pulse - - Temperature - - Respiratory Rate - - Oxygen Saturation - - Inhaled Oxygen Concentration - - Weight 81.6 kg (180 lb) 2022 12:04 PM EDT Height 177.8 cm (5' 10 ) 2022 12:04 PM EDT Body Mass Index 25.83 2022 12:04 PM EDT Plan of Treatment Not on [place] [address] [facility] Care Teams Crust Sorter Relationship Specialty Start Date End Date Theron Lora DO PCP - General Internal Medicine 10/16/22
--- OUTSIDE RECORDS SUMMARY | 2024-09-25 07:31 | XMS_ITS | Clinical Summary ---
Author Organization [facility] Address [address] [place], [place] [id number] Care Team Providers Care Library Media Specialist Name Role Phone Theron Lora DO Primary Care Provider [phone] Allergies No known active allergies Medications traMADol (ULTRAM) 50 mg tablet Take 50 mg by mouth twice daily. Active aspirin, enteric coated (ASPIRIN, ENTERIC COATED) 81 mg EC tablet Take 81 mg by mouth once daily. Active clopidogrel (PLAVIX) 75 mg tablet Take 75 mg by mouth once daily. Active atorvastatin (LIPITOR) 80 mg tablet Take 80 mg by mouth once daily. Active insulin glargine,hum.r ec.anlog (LANTUS SOLOSTAR U-100 INSULIN SUBCUTANEOUS) Inject subcutaneously as directed. Active atenolol (TENORMIN) 25 mg tablet Take 25 mg by mouth once daily. Active pantoprazole DR (PROTONIX) 40 mg tablet Take 40 mg by mouth once daily. Active fluticasone (FLONASE ALLERGY RELIEF) 50 mcg/actuation nasal spray Use 2 Sprays in each nostril once daily. Active Social History Tobacco Use Types Packs/Day Years Used Date Smoking Tobacco: Former Smokeless Tobacco: Never Alcohol Use Standard Drinks/Week Comments Yes 0 (1 standard drink = 0.6 oz pur e alcohol) AUDIT-C Answer Date Recorded Q1: How often do you have a drink containing alc ohol? Monthly or less 04/02/2019 Average Number of Drinks Not on file 019 Frequency of Binge Drinking Not on file 08/2018 Area Deprivation Index Answer Date Ed rded National Score (1-100), lower number is lower ri sk Not on file 04/05/2020 State Score (1-10), lower number is lower risk N ot on file 04/05/2020 Data from: https://www.neighborhoodatlas.[place]/. Last address used for calculation Not on file 04/05/2020 Sex and Gender Information Value Date Recorded Sex Assigned at Not on file Legal Sex Male 2:19 PM EST Gender Identity Not on file Sexual Orientation Not on file Last Filed Vital Signs Vital Sign Reading Time Taken Comments Blood Pressure 131/69 04/02/2019 11:16 AM EST Pulse 72 04/02/2019 11:16 AM EST Temperature 36.7 C (98.1 F) 04/02/2019 11:16 AM EST Respiratory Rate 16 04/02/2019 11:16 AM EST Oxygen Saturation 97% 04/02/2019 11:16 AM EST Inhaled Oxygen Concentration - - Weight 80.5 kg (177 lb 6.4 oz) 04/02/2019 11:16 AM EST Height 177.8 cm (5' 10 ) 04/02/2019 11:16 AM EST verified Body Mass Index 25.45 04/02/2019 11:16 AM EST Plan of Treatment Health Maintenance Due Date Last Done Comments Abdominal Aortic Aneurysm Screening 1950 Anxiety Screening 11/13/1969 Depression Screening 11/13/1969 DTaP,Tdap,Td Vaccine (1 - Tdap) 11/13/1970 Lipid Screening 11/13/1986 CT Colonography 11/13/1996 Cologuard (FIT-DNA) 11/13/1996 Colonoscopy 11/13/1996 Colorectal Cancer Screening 11/13/1996 Fecal Occult Blood 11/13/1996 Sigmoidoscopy 11/13/1996 Pneumococcal Vaccine: 50+ (1 of 1 - PCV) 11/13/2001 Shingrix Vaccine (1 of 2) 11/13/2001 Diabetes Screening 04/02/2022 04/02/2019 Covid-19 Vaccine (1 - season) 2023 Advance Directive Discussion 04/29/2024 Influenza Vaccine (Season Ended) 2024 RSV Vaccine (1 - 1-dose 75+ series) 11/13/2026 Hepatitis C Screening Completed 04/02/2019 Procedures Procedure Name Priority Date/Time Associated Diagnosis Comments HEP REMOTE PANEL BL Routine 04/02/2019 1 2:40 PM EST Leukopenia, unspecified type COMPREHENSIVE METABOLIC PANEL Routine 04/02/2019 12:40 PM EST Leukopenia, unspecified type from Last 3 Months or Most Recently Relevant to Health Maintenance Results * HEP REMOTE PANEL BL (04/02/2019 12:40 PM EST) Pathologist [facility] Hep B Core Ab, Total Negative Negative 04/03/2019 10:45 AM EST [facility] Hep C Antibody IA Negative Negative 04/03/2019 10:46 AM EST [facility] HBsAg Negative Negative 04/03/2019 10:45 AM EST [facility] Hep B Surface Ab, Qual Negative Negative 04/03/2019 10:45 AM [facility] Comment:NEGATIVE Blood specimen (specimen) BLOOD SPECIMEN / Unknown 04/02/2019 12:40 PM EST 04/02/2019 12:42 PM EST us Francis Hebert DO LABORATORY Final Res ult [facility] [address] [place] [id number] [facility] [address] [place] [address] * (ABNORMAL) COMP METABOLIC PANEL (04/02/2019 12:40 PM EST) [facility] Protein, Total 7.4 6.3 - 8.0 g/dL 04/02/2019 1:12 PM EST [facility] Albumin 4.4 3.9 - 4.9 g/dL 04/02/2019 1:12 PM EST [facility] Calcium 9.6 8.5 - 10.2 mg/dL 04/02/2019 1:12 PM EST [facility] Bilirubin, Total 0.6 0.2 - 1.3 mg/dL 04/02/2019 1:12 PM EST [facility] Alkaline Phosphatase 102 38 - 113 U/L 04/02/2019 1:12 PM EST [facility] AST 31 14 - 40 U/L 04/02/2019 1:12 PM [facility] Glucose 257(H) 74 - 99 mg/dL 04/02/2019 1:12 PM [facility] Comment: The Citizen [place] Diabetes Association (ADA) provides guidance for cutoff values for [...] Standards of Medical Care in Diabetes 2016, Citizen [place] Diabetes Association. Diabetes Care. 2016.39(Suppl 1). BUN 19 9 - 24 mg/dL 04/02/2019 1:12 PM [facility] Creatinine 0.94 0.73 - 1.22 mg/dL 04/02/2019 1:12 PM [facility] Sodium 135(L) 136 - 144 mmol/L 04/02/2019 1:12 PM [facility] Potassium 4.8 3.7 - 5.1 mmol/L 04/02/2019 1:12 PM [facility] Chloride 98 97 - 105 mmol/L 04/02/2019 1:12 PM [facility] CO2 24 22 - 30 mmol/L 04/02/2019 1:12 PM [facility] Anion Gap 13 9 - 18 mmol/L 04/02/2019 1:12 PM [facility] ALT 53 10 - 54 U/L 04/02/2019 1:12 PM [facility] eGFR- >60 04/02/2019 1:12 PM [facility] eGFR-All Other Races >60 . 04/02/2019 1:12 PM [facility] Comment: eGFR (Estimated GFR) Units of measure: mL/min/1.73 meters squared eGFR is [...] eGFR may not accurately reflect actual GFR. Blood specimen (specimen) BLOOD SPECIMEN / Unknown 04/02/2019 12:40 PM EST 04/02/2019 12:42 PM EST us Francis Hebert DO LABORATORY Final Res ult [facility] [address] [place] [address] [facility] [address] [place] [address] from Last 3 Months or Most Recently Relevant to Health Maintenance Insurance MEDICARE [facility] Care Teams Library Media Specialist Relationship Specialty Start Date End Date Theron Lora DO [address] [place] [address] PCP - General Internal Medicine 03/18/19
--- OUTSIDE RECORDS SUMMARY | 2024-09-25 07:31 | XMS_ITS | Encounter Summary ---
Author Organization [facility] Address [address] [facility] [place] [address] Care Team Providers Care Tax Credit Leasing Consultant Name Role Phone Theron Lora DO Primary Care Provider [phone] Encounter Details Date Type Department Care Team (Late st Contact Info) Description 2022 Abstract [facility] [address] [place] [address] Ihsan Bradshaw, DEMOLITION WORKER [address] [place], [place] [id number] Social History Tobacco Use Types Packs/Day Years Used Date Smoking Tobacco: Former Cigarettes Smokeless Tobacco: Never Alcohol Use Standard Drinks/Week Comments Not Currently 0 (1 standard drink = 0.6 oz pur e alcohol) Sex and Gender Information Value Date Recorded Sex Assigned at Not on file Legal Sex Male 8:28 PM EDT Gender Identity Not on file Sexual Orientation Not on file documented as of this encounter Plan of Treatment Not on file documented as of this encounter Visit Diagnoses Not on filedocumented in this encounter Care Teams Tax Credit Leasing Consultant Relationship Specialty Start Date End Date Theron Lora DO PCP - General Internal Medicine 10/16/22 documented as of this encounter
--- OUTSIDE RECORDS SUMMARY | 2024-09-25 07:32 | XMS_ITS | CCD ---
Author Organization [facility] Care Team Providers Care Tooling Mechanic Name Role Phone THERON MENDOZA Unavailable Unavailable TINO GUNDERSON Unavailable Unavailable [place] SANCHEZ AM Unavailable Unavailable RACHELL, [place] AM Unavailable Unavailable [place] Unavailable Unavailable UNKNOWN, PROVIDER Unavailable Unavailable UNKNOWN, [...] Attending Unavailable ARGUETA, Tom Cohen Attending Unavailable Giedraitis , Andrius Luo Attending Unavailable Giedraitis , Andrius Valerio Attending Unavailable Giedraitis , Andrius Vmurphy Attending Unavailable Giedraitis , Andrius Vytlisa Attending Unavailable Giedraitis , Andrius Vytlisa Attending Unavailable Giedraitis , Andrius Vytlisa Attending Unavailable Giedraitis , Andrius Luo Attending Unavailable Allergies Allergy Classification Reported Allergen(s) Allergy Type Date of Onset Reaction(s) Facility (1 source) 15218,00; Translations: [32360,00] Propensity to adverse reactions (disorder) 9 [facility] Repository (12 sources) metFORMIN; Translations: [metFORMIN] Drug Allergy diarrhea, Unknown [facility] Repository (3 sources) patient allergy list reviewed by nurse or physicia Propensity to adverse reactions 8 Comment:Done [employer] Other (1 source) No Known Medication Allergies; Translations: [No Known Medication Allergies] Propensity to adverse reactions (disorder) [facility] Repository Medications Current Medications Medication Drug [...] procedure, # 2 cap(s), Refills(s) 0, Pharmacy: [facility]/pharmacy #[id number], 177, cm, 11/20/21 12:47:00 [...] disease (20 sources) Atherosclerotic heart disease of [place] coronary artery with unstable angina pectoris; Translations: [Atherosclerotic heart disease of [place] coronary artery without angina pectoris] Onset: 08-25-2013 [...] Onset: 09-18-2013 Chronic Other aftercare (6 sources) 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 Normal [facility] Cholesterol in LDL Calc [Mas s/Vol]on 11-05-2023 Cholesterol in LDL [Mass/Vol] 42.0 mg/dL [facility] Comment on above: <100 mg/dl [id number] mg/dl NEAR OR ABOVE [id number] mg/dl BORDERLINE [id number] mg/dl HIGH>190 mg/dl VERY HIGH Cholesterol in VLDL Calc [Ma ss/Vol]on 11-05-2023 Cholesterol in VLDL [Mass/Vol] 35.6 mg/dL [facility] Estimated glomerular filtrat ion rate (GFR) non- Americanon 11-05-2023 GFR/1.73 sq M.predicted among non-blacks MDRD (S/P/Bld) [Vol rate/Area] mL/min/{1.73_m2} >=60 [facility] Globulin Calc (S) [Mass/Vol] on 11-05-2023 Globulin (S) [Mass/Vol] 3.3 g/dL [facility] Glucose mean value [Mass/vol ume] in Blood Estimated from glycated hemoglobinon 11-05-2023 Average glucose Estimated from glycated hemoglobin (Bld) [Mass/Vol] 143 mg/dL [facility] Laboratory - Chemistry and C hemistry - challengeon 11-05-2023 Albumin [Mass/Vol] 4.0 g/dL 3.4-5.0 [facility] ALP [Catalytic activity/Vol] 74 U/L 46-116 [facility] ALT [Catalytic activity/Vol] 48 U/L 16-63 [facility] AST [Catalytic activity/Vol] 34 U/L 15-37 [facility] Bilirubin [Mass/Vol] 0.9 mg/dL 0.2-1.0 [facility] Calcium [Mass/Vol] 8.6 mg/dL 8.5-10.1 [facility] Chloride [Moles/Vol] 103 mmol/L 98-107 [facility] Cholesterol [Mass/Vol] 119 mg/dL <=200 [facility] Cholesterol in HDL [Mass/Vol] 42 mg/dL 40-60 [facility] Comment on above: > or =60 mg/dl - LOW CARDIOVASCULAR RISK <40 mg/dl - HIGH CARDIOVASCULAR RISK CO2 [Moles/Vol] 28.3 mmol/L 21.0-32.0 [facility] Creatinine [Mass/Vol] 1.10 mg/dL 0.70-1.30 [facility] GFR/1.73 sq M.predicted MDRD (S/P/Bld) [Vol rate/Area] mL/min/{1.73_m2} >=60 [facility] Glucose [Mass/Vol] 139 mg/dL High 74-106 [facility] Potassium [Moles/Vol] 4.1 mmol/L 3.5-5.1 [facility] Protein [Mass/Vol] 7.3 g/dL 6.4-8.2 [facility] Sodium [Moles/Vol] 141 mmol/L 136-145 [facility] Triglyceride [Mass/Vol] 178 mg/dL High <=150 [facility] Urea nitrogen [Mass/Vol] 21.0 mg/dL High 7.0-18.0 [facility] Urea nitrogen/Creatin ine [Mass ratio] 19.1 mg/mg [facility] Laboratory - Hematology and Cell countson 11-05-2023 HbA1c (Bld) [Mass fraction] 6.6 % High 4.5-6.2 [facility] Comment on above: ADA RECOMMENDED LIMIT 4.0 - 6.0ADA THERA PEUTIC TARGET < 7.0ACTION SUGGESTED> 7.0 Microalbumin [Mass/volume] i n Urineon 11-05-2023 Albumin DL <= 20 mg/L (U) [Mass/Vol] 3.4 mg/dL <=30.0 [facility] Serum or plasma albumin/glob ulin mass ratioon 11-05-2023 Albumin/Globulin [Mass ratio] 1.2 {ratio} [facility] Serum or plasma anion gap de terminationon 11-05-2023 Anion gap [Moles/Vol] 13.8 mmol/L [facility] Serum or plasma total choles terol/high density lipoprotein (HDL) cholesterol mass aquiles 11-05-2023 Cholesterol.tota l/Cholesterol in HDL [Mass ratio] 2.8 {ratio} [facility] Comment on above: 3.3 - 4.4 LOW RISK4.4 - 7.1 AVERAGE RISK 7.1 - 11.0 MODERATE RISK>11.0 HIGH RISK Screenson 10-02-2023 Screens [id number] Normal [facility] Screens [id number] Normal [facility] Ambulatory Visit Summaryon 0 10-01-2023 Ambulatory Visit Summary LISA LUGO :1950 Visit Date:10/01/2023 Ambulatory Visit Instructions Your Diagnosis BPH with urinary obstruction History of gross hematuria Glucosuria Your Care Team Attending Physician - DOMINGA PRESLEY PA-C Primary Care Physician - MATT BARBER, THERON This Is Your Medications List Contact [...] NUÑEZ, Tom Cohen Where: [facility] Patient Educationon 10-01-19 24 Patient Education Urology [...] Follow these instructions at home: ? Take chuy-ikv-sdrezek and prescription medicines only as told by [...] the medicine (more content not included)... Normal [facility] Urology Office/Clinic Noteon 10-01-2023 Urology Office/Clinic [...] Contact Information SAKINA RANDALL, DOMINGA Multani, URL [address] [place] [address] Additional Instructions: 1 yr PSA Patient Education [...] virus vaccine (more content not included)... Normal [facility] Comment on above: Result Comment: Electronically Signed By : DOMINGA PRESLEY PA-C\.br\Date and Time Signed: 10/01/23 13:08 EDT\.br\Electronically Co-Signed By: Trish Marcus\.br\Date and Time Co-Signed: 10/01/23 13:03 EDT Lab Reportson 09-18-2023 Lab Reports [id number] [facility] RAD - Ultrasound Reporton RAD - Ultrasound Report [id number]#1.00TIFF [facility] No Panel Informationon 09-16 Free Prostate Specific Antigen 0.78 ng/mL N/A [facility] Comment on above: Augustina ECLIA methodology. Prostate Specific Antigen Total 1.9 ng/mL 0.0-4.0 [facility] Comment on above: [place]ina ECLIA methodology.According to the [place] [employer], Serum PSAshould decrease and remain [...] PSA/Total PSA [Mass fraction] 41.1 % . [facility] Comment on above: The table below lists [...] for any other population of men.Performed at: [facility] [id number] Director: Guanakito Cota PhD, Phone: [phone] Reminderson 08-22-2023 Reminders - From: Sade Kilgore To: EU - Recalls Lizabeth; Sent: 05/02/2022 10:13:25 EST Show up: 10/27/2022 10:13:00 EDT Subject: renal US and fu Due Date/Time: 11/19/2022 10:13:00 EDT Reminder/Recall Patient is due in November 2022 for 1 year fu with renal US From: Tonja Valadez MA (CHIP - Recalls Lizabeth) To: EU - Recalls Lizabeth; Sent: 11/13/2022 13:34:49 EDT Show up: 08/12/2023 13:34:00 EDT Subject: RE: renal US and fu Due Date/Time: 09/13/2023 13:34:00 EDT Pt has 1yr f/u w/PSA 09/20/23. Will schedule MINESH prior to that appt. LM on informing pt that [facility] will be reaching out to get MINESH scheduled. Appt 09/20/23 to review results. Order & demo's faxed to the [facility] CS. MINESH scheduled 09/17/23 @ [facility] Normal [facility] GLYCOHEMOGLOBIN A1Con 2021 ADA RECOMMENDATION SEE BELOW Normal [facility] Comment on above: Result Comment: ADA RECOMMENDED LIMIT 4. 0 - 6.0 ADA THERAPEUTIC TARGET < 7.0 ACTION SUGGESTED > 7.0 Performed By: #### A 1C #### [facility] [address] [address] [address] Yara Chavez Glucose [Mass/Vol] 166 mg/dL Normal [facility] Comment on above: Performed By: #### A1C #### [facility] [address] [address] [address] Yara Chavez HbA1c (Bld) [Mass fraction] 7.4 % Critically high 4.5-6.2 [facility] Comment on above: Performed By: #### A1C #### [facility] [address] ABD/PELV W CONon [...] PARAS SOMMERS Date: 2021-11-26 02:01 Normal [facility] CBC AUTO DIFFon 11-24-2021 BASO # 0.0 103/ul Normal 0.0-0.1 [facility] Comment on above: Performed By: #### CBC #### [facility] [address] [address] [address] Yara Chavez Basophils/100 WBC (Bld) 0.7 % Normal 0.2-2.0 [facility] Comment on above: Performed By: #### CBC #### [facility] [address] [address] [address] Yara Chavez EO # 0.0 103/ul Normal 0.0-0.7 [facility] Comment on above: Performed By: #### CBC #### [facility] [address] [address] [address] Yara Chavez Eosinophils/100 WBC (Bld) 1.0 % Normal 0.9-7.0 [facility] Comment on above: Performed By: #### CBC #### [facility] [address] [address] [address] Yara Chavez Erythrocyte distribution width (RBC) [Ratio] 14.7 % Normal 11.0-15.0 [facility] Comment on above: Performed By: #### CBC #### [facility] [address] [place] [address] Dr. Yara Chavez Hematocrit (Bld) [Volume fraction] 38.7 % Critically low 42.0-54.0 [facility] Comment on above: Performed By: #### CBC #### [facility] [address] [place] [address] Dr. Yara Chavez Hemoglobin (Bld) [Mass/Vol] 12.3 g/dL Critically low 14.0-18.0 [facility] Comment on above: Performed By: #### CBC #### [facility] [address] [place] [address] Dr. Yara Chavez IG # 0.01 10e3/ul Normal 0.00-0.03 [facility] Comment on above: Performed By: #### CBC #### [facility] [address] [place] [address] Dr. Yara Chavez IG % 0.3 % Normal 0.0-0.5 [facility] Comment on above: Performed By: #### CBC #### [facility] [address] [place] [address] Dr. Yara Chavez LYMPH # 1.1 103/ul Critically low 1.2-3.8 [facility] Comment on above: Performed By: #### CBC #### [facility] [address] [place] [address] Dr. Yara Chavez Lymphocytes/100 WBC (Bld) 36.1 % Normal 20.5-60.0 [facility] Comment on above: Performed By: #### CBC #### [facility] [address] [place] [address] Dr. Yara Chavez MANUAL DIFF REQ NO Normal [facility] Comment on above: Performed By: #### CBC #### [facility] [address] [place] [address] Dr. Yara Chavez MCH (RBC) [Entitic mass] 28.0 pg Normal 25.9-34.0 [facility] Comment on above: Performed By: #### CBC #### [facility] [address] [place] [address] Dr. Yraa Chavez MCHC (RBC) [Mass/Vol] 31.8 g/dL Normal 29.9-35.2 [facility] Comment on above: Performed By: #### CBC #### [facility] [address] [place] [address] Dr. Yara Chavez MCV (RBC) [Entitic vol] 88.2 fL Normal 80.0-94.0 [facility] Comment on above: Performed By: #### CBC #### [facility] [address] [place] [address] Dr. Yara Chavez MONO # 0.3 103/ul Normal 0.3-0.8 [facility] Comment on above: Performed By: #### CBC #### [facility] [address] [place] [address] Dr. Yara Chavez Monocytes/100 WBC (Bld) 9.5 % Normal 1.7-12.0 [facility] Comment on above: Performed By: #### CBC #### [facility] [address] [place] [address] Dr. Yara Chavez NEUT # 1.5 103/ul Normal 1.4-6.5 [facility] Comment on above: Performed By: #### CBC #### [facility] [address] [place] [address] Dr. Yara Chavez Neutrophils/100 WBC (Bld) 52.4 % Normal 43.0-75.0 [facility] Comment on above: Performed By: #### CBC #### [facility] [address] [place] [address] Dr. Yara Chavez Platelet mean volume (Bld) [Entitic vol] 10.1 fL Normal 9.5-13.5 [facility] Comment on above: Performed By: #### CBC #### [facility] [address] [place] [address] Dr. Yara Chavez PLT 195 103/ul Normal 150-450 [facility] Comment on above: Performed By: #### CBC #### [facility] [address] [place] [address] Dr. Yara Chavez RBC 4.39 106/ul Critically low 4.70-6.10 [facility] Comment on above: Performed By: #### CBC #### [facility] [address] [address] [address] Yara Chavez WBC 2.9 103/ul Critically low 4.0-11.0 [facility] Comment on above: Performed By: #### CBC #### [facility] [address] [address] [address] Yara Chavez LIPID PROFILEon 11-24-2021 CHOL-HDL RATIO NORM SEE BELOW Normal [facility] Comment on above: Result Comment: 3.3 - 4.4 LOW RISK 4.4 - 7.1 AVERAGE RISK 7.1 - 11.0 MODERATE RISK >11.0 HIGH RISK Performed By: #### A LT, BMP, LIPID #### [facility] [address] [address] [address] Yara Chavez Cholesterol [Mass/Vol] 124 mg/dL Normal <=200 [facility] Comment on above: Performed By: #### ALT, BMP, LIPID #### [facility] [address] [address] [address] Yara Chavez Cholesterol in HDL [Mass/Vol] 41 mg/dL Normal 40-60 [facility] Comment on above: Performed By: #### ALT, BMP, LIPID #### [facility] [address] [address] [address] Yara Chavez Cholesterol in LDL [Mass/Vol] 56.8 mg/dL Normal [facility] Comment on above: Performed By: #### ALT, BMP, LIPID #### [facility] [address] [address] [address] Yara Chavez Cholesterol.tota l/Cholesterol in HDL [Mass ratio] 3.0 {ratio} Normal [facility] Comment on above: Performed By: #### ALT, BMP, LIPID #### [facility] [address] [address] [address] Yara Chavez HDL NORMAL > or = 60 mg/dl - LO W CARDIOVASCULAR RISK <40 mg/dl - HIGH CARDIOVASCULAR RISK Normal [facility] Comment on above: Performed By: #### ALT, BMP, LIPID #### [facility] [address] [place] [address] Dr. Yara Chavez LDL CALC NORMAL SEE BELOW Normal [facility] Comment on above: Result Comment: <100 mg/dl OPTIMAL 100 - 129 mg/dl NEAR OR ABOVE OPTIMAL 130 - 159 mg/dl BORDERLINE HIGH 160 - 189 mg/dl HIGH >190 mg/dl VERY HIGH Performed By: #### A LT, BMP, LIPID #### [facility] [address] [address] [address] Yara Chavez Triglyceride [Mass/Vol] 131 mg/dL Normal <=150 [facility] Comment on above: Performed By: #### ALT, BMP, LIPID #### [facility] [address] [address] [address] Yara Chavez VLDL CALC 26.2 mg/dL Normal [facility] Comment on above: Performed By: #### ALT, BMP, LIPID #### [facility] [address] [place] [address] Dr. Yara Chavez MICROALBUMIN, RAND URon 07- mALB 1.4 mg/L Normal <=30.0 [facility] Comment on above: Performed By: #### MALBR #### [facility] [address] [address] [address] Yara Chavez PROF CHEM 8 (BAS METB)on Anion gap [Moles/Vol] 10.1 mmol/L Normal [facility] Comment on above: Performed By: #### ALT, BMP, LIPID #### [facility] [address] [address] [address] Yara Chavez Calcium [Mass/Vol] 9.0 mg/dL Normal 8.5-10.1 [facility] Comment on above: Performed By: #### ALT, BMP, LIPID #### [facility] [address] [place] [address] Dr. Yara Chavez Chloride [Moles/Vol] 105 mmol/L Normal 98-107 [facility] Comment on above: Performed By: #### ALT, BMP, LIPID #### [facility] [address] [place] [address] Dr. Yara Chavez CO2 [Moles/Vol] 31.3 mmol/L Normal 21.0-32.0 [facility] Comment on above: Performed By: #### ALT, BMP, LIPID #### [facility] [address] [address] [address] Yara Chavez Creatinine [Mass/Vol] 1.24 mg/dL Normal 0.70-1.30 [facility] Comment on above: Performed By: #### ALT, BMP, LIPID #### [facility] [address] [address] [address] Yara Chavez EGFR-AF CITIZEN [place] >60 Normal >=60 [facility] Comment on above: Performed By: #### ALT, BMP, LIPID #### [facility] [address] [address] [address] Yara Chavez EGFR-NON AF CITIZEN [place] 58 mL/min/1.73m2 Critically low >=60 [facility] Comment on above: Performed By: #### ALT, BMP, LIPID #### [facility] [address] [address] [address] Yara Chavez Glucose [Mass/Vol] 102 mg/dL Normal 74-106 [facility] Comment on above: Performed By: #### ALT, BMP, LIPID #### [facility] [address] [address] [address] Yara Chavez Potassium [Moles/Vol] 4.4 mmol/L Normal 3.5-5.1 [facility] Comment on above: Performed By: #### ALT, BMP, LIPID #### [facility] [address] [address] [address] Yara Chavez Sodium [Moles/Vol] 142 mmol/L Normal 136-145 [facility] Comment on above: Performed By: #### ALT, BMP, LIPID #### [facility] [address] [address] [address] Yara Chavez Urea nitrogen [Mass/Vol] 22.0 mg/dL Critically high 7.0-18.0 [facility] Comment on above: Performed By: #### ALT, BMP, LIPID #### [facility] [address] [address] [address] Yara Chavez Urea nitrogen/Creatin ine [Mass ratio] 17.7 mg/mg Normal [facility] Comment on above: Performed By: #### ALT, BMP, LIPID #### [facility] [address] [address] [address] Yara Chavez SGPTon 11-24-2021 ALT [Catalytic activity/Vol] 48 U/L Normal 16-63 [facility] Comment on above: Performed By: #### ALT, BMP, LIPID #### [facility] [address] [place] [address] Dr. Yara Chavez GLYCOHEMOGLOBIN A1Con 2021 ADA RECOMMENDATION SEE BELOW Normal [facility] Comment on above: Result Comment: ADA RECOMMENDED LIMIT 4. 0 - 6.0 ADA THERAPEUTIC TARGET < 7.0 ACTION SUGGESTED > 7.0 Performed By: #### A 1C #### [facility] [address] [place] [address] Dr. Yara Chavez Glucose [Mass/Vol] 169 mg/dL Normal [facility] Comment on above: Performed By: #### A1C #### [facility] [address] [place] [address] Dr. Yara Chavez HbA1c (Bld) [Mass fraction] 7.5 % Critically high 4.5-6.2 [facility] Comment on above: Performed By: #### A1C #### [facility] [address] [place] [address] Dr. Yara Chavez PROF CHEM 8 (BAS METB)on Anion gap [Moles/Vol] 12.0 mmol/L Normal [facility] Comment on above: Performed By: #### BMP #### [facility] [address] [address] [address] Yara Chavez Calcium [Mass/Vol] 8.7 mg/dL Normal 8.5-10.1 [facility] Comment on above: Performed By: #### BMP #### [facility] [address] [place] [address] Dr. Yara Chavez Chloride [Moles/Vol] 103 mmol/L Normal 98-107 [facility] Comment on above: Performed By: #### BMP #### [facility] [address] [address] [address] Yara Chavez CO2 [Moles/Vol] 29.1 mmol/L Normal 21.0-32.0 [facility] Comment on above: Performed By: #### BMP #### [facility] [address] [address] [address] Yara Chavez Creatinine [Mass/Vol] 1.17 mg/dL Normal 0.70-1.30 [facility] Comment on above: Performed By: #### BMP #### [facility] [address] [address] [address] Yara Chavez EGFR-AF CITIZ[place] >60 Normal >=60 [facility] Comment on above: Performed By: #### BMP #### [facility] [address] [place] [address] Dr. Yara Chavez EGFR-NON AF CITIZEN [place] >60 Normal >=60 [facility] Comment on above: Performed By: #### BMP #### [facility] [address] [place] [address] Dr. Yara Chavez Glucose [Mass/Vol] 144 mg/dL Critically high 74-106 [facility] Comment on above: Performed By: #### BMP #### [facility] [address] [place] [address] Dr. Yara Chavez Potassium [Moles/Vol] 4.1 mmol/L Normal 3.5-5.1 [facility] Comment on above: Performed By: #### BMP #### [facility] [address] [place] [address] Dr. Yara Chavez Sodium [Moles/Vol] 140 mmol/L Normal 136-145 [facility] Comment on above: Performed By: #### BMP #### [facility] [address] [place] [address] Dr. Yara Chavez Urea nitrogen [Mass/Vol] 18.0 mg/dL Normal 7.0-18.0 [facility] Comment on above: Performed By: #### BMP #### [facility] [address] [place] [address] Dr. Yara Chavez Urea nitrogen/Creatin ine [Mass ratio] 15.4 mg/mg Normal [facility] Comment on above: Performed By: #### BMP #### [facility] [address] [address] [address] Yara Chavez CNOVSPon 04-02-2019 CNOVSP Visit (SP) Office (H EMASA) BRITTNEYLISA ([id number]) 1950 M Date Time Provider Department 04/02/19 11:15 AM THAIS HEBERT During your visit today, we recorded the following information about you: Temperature Pulse Respiration Blood pressure 98.1 degrees 72/minute 16/minute 131/69 Weight Height 80.5 kg 1.778 m Thais Hebert DO 04/03/2019 1:15 PM Signed PATIENT NAME: Lisa Lugo REFERRING PHYSICIAN: Theron Mendoza MD ([facility]) [address] [place] [address] PRIMARY CARE PHYSICIAN: Theron Mendoza MD CHIEF [...] questions satisfactorily.. Francois Hebert D.O. Medical Oncologist [place], [place] Referring Provider: THERON MENDOZA [[id number]] Allergies As of Date: 04/02/2019 (No Known Allergies) Date Reviewed: 04/02/2019 Reviewed by: Dorene Germain - Fully Assessed Reason for Visit: abdnormal lab [Other] Cmt: new patient consultation Primary Visit Diagnosis:Leukopenia, unspecified type [D72.819] Other Visit Diagnosis:Abnormal finding of blood chemistry, unspecified [R79.9] Order(s):PROTEIN ELECTROPHORESIS W/INTERP [SQSEPG] Order #: [id number] FUTURE MONOCLONAL PROTEIN, SERUM (BLOOD) [SQSERMPA] Order #: [id number] FUTURE IMMUNOGLOBULINS SHANIA [SQSERIMM] Order #: [id number] FUTURE LD LACTATE DEHYDRO [SQLD6] Order #: [id number] FUTURE COMP METABOLIC PANEL [SQCMP] Order #: [id number] FUTURE CBC + DIFF (FOR REMOTE [facility] USE) [SQRCBCDF] Order #: [id number] FUTURE IRON + TIBC [SQIRON] Order #: [id number] FUTURE FERRITIN BLD [SQFERR] Order #: [id number] FUTURE VITAMIN B12 BLOOD [SQB12] Order #: [id number] FUTURE FOLATE SERUM [SQSERFOL] Order #: [id number] FUTURE METHYLMALONIC ACID [SQMMA] Order #: [id number] FUTURE HEP REMOTE PANEL BL [SQHREMOP] Order #: [id number] FUTURE SED RATE WESTERGREN [SQWSR] Order #: [id number] FUTURE Disposition: Return labs today. f/u 6 [...] by THAIS HEBERT DO on 04/03/19 Normal [facility] Comp Metabolic Panelon 04-02 Albumin [Mass/Vol] 4.4 g/dL Normal 3.9-4.9 [facility] ALP [Catalytic activity/Vol] 102 U/L Normal 38-113 [facility] ALT [Catalytic activity/Vol] 53 U/L Normal 10-54 [facility] Anion gap [Moles/Vol] 13 mmol/L Normal 9-18 [facility] AST [Catalytic activity/Vol] 31 U/L Normal 14-40 [facility] Bilirubin [Mass/Vol] 0.6 mg/dL Normal 0.2-1.3 [facility] Calcium [Mass/Vol] 9.6 mg/dL Normal 8.5-10.2 [facility] Chloride [Moles/Vol] 98 mmol/L Normal 97-105 [facility] CO2 [Moles/Vol] 24 mmol/L Normal 22-30 [facility] Creatinine [Mass/Vol] 0.94 mg/dL Normal 0.73-1.22 [facility] eGFR- Amer. >60 Normal [facility] GFR/1.73 sq M predicted among non-blacks MDRD (S/P/Bld) [Vol rate/Area] mL/min/{1.73_m2} Normal [facility] Comment on above: Result Comment: eGFR (Estimated [...] GFR. Glucose [Mass/Vol] 257 mg/dL High 74-99 [facility] Comment on above: Result Comment: The [place] Diabetes As sociation (ADA) provides guidance for [...] Standards of Medical Care in Diabetes 2016, [place] [employer] Association. Diabetes Care. 2016.39(Suppl 1). Potassium [Moles/Vol] 4.8 mmol/L Normal 3.7-5.1 [facility] Protein [Mass/Vol] 7.4 g/dL Normal 6.3-8.0 [facility] Sodium [Moles/Vol] 135 mmol/L Low 136-144 [facility] Urea nitrogen [Mass/Vol] 19 mg/dL Normal 9-24 [facility] Ferritinon 04-02-2019 Ferritin [Mass/Vol] 279.0 ng/mL Normal 30.3-565.7 [facility] Comment on above: Performed By: #### WSR, B12, SERFOL, IRO N, FERR, SERIMM, HREMOP, SERMPA, SEPG, MMA #### [place] [address] Folate, Serumon 04-02-2019 Folate [Mass/Vol] ng/mL Normal >4.7 [facility] Comment on above: Result Comment: A result of > 20 ng/mL i s not necessarily indicative of a pathologic or treatable condition: it reflects a limitation of the test methodology. Assay reference range: 4.8 to 24.2 ng/mL. Suitable for detection of folate deficiency. Reference: Folate III (Folate III) [package insert V 2.0 Ukrainian]. [employer], [place], [place]: February 2015. Performed By: #### W SR, B12, SERFOL, IRON, FERR, SERIMM, HREMOP, SERMPA, SEPG, MMA #### [place] [address] Hepatitis Remote Panelon HBsAg Negative Normal Negative [facility] Comment on above: Performed By: #### WSR, B12, SERFOL, IRO N, FERR, SERIMM, HREMOP, SERMPA, SEPG, MMA #### [place] [address] Hep B Core Ab,Total Negative Normal Negative [facility] Comment on above: Performed By: #### WSR, B12, SERFOL, IRO N, FERR, SERIMM, HREMOP, SERMPA, SEPG, MMA #### [place] [address] Hepatitis C Ab IA Negative Normal Negative [facility] Comment on above: Performed By: #### WSR, B12, SERFOL, IRO N, FERR, SERIMM, HREMOP, SERMPA, SEPG, MMA #### [place] [phone] HepB Surface Ab,Qual Negative Normal Negative [facility] Comment on above: Result Comment: NEGATIVE Performed By: #### W SR, B12, SERFOL, IRON, FERR, SERIMM, HREMOP, SERMPA, SEPG, MMA #### [place] [phone] Immunoglobulins GAMon 2018 IgA [Mass/Vol] 323 mg/dL Normal 78-391 [facility] Comment on above: Performed By: #### WSR, B12, SERFOL, IRO N, FERR, SERIMM, HREMOP, SERMPA, SEPG, MMA #### [place] [phone] IgG [Mass/Vol] 981 mg/dL Normal 717-1411 [facility] Comment on above: Performed By: #### WSR, B12, SERFOL, IRO N, FERR, SERIMM, HREMOP, SERMPA, SEPG, MMA #### [place] [phone] IgM [Mass/Vol] 133 mg/dL Normal 53-334 [facility] Comment on above: Performed By: #### WSR, B12, SERFOL, IRO N, FERR, SERIMM, HREMOP, SERMPA, SEPG, MMA #### [place] [phone] Iron and TIBCon 04-02-2019 Iron [Mass/Vol] 80 ug/dL Normal 41-186 [facility] Comment on above: Performed By: #### WSR, B12, SERFOL, IRO N, FERR, SERIMM, HREMOP, SERMPA, SEPG, MMA #### [place] [address] [place] [address] TIBC 247 ug/dL Normal 232-386 [facility] Comment on above: Performed By: #### WSR, B12, SERFOL, IRO N, FERR, SERIMM, HREMOP, SERMPA, SEPG, MMA #### [place] [address] [place] [address] Transferrin Saturatn 32 % Normal 15-57 [facility] Comment on above: Performed By: #### WSR, B12, SERFOL, IRO N, FERR, SERIMM, HREMOP, SERMPA, SEPG, MMA #### [place] [address] [place] [address] LDon 04-02-2019 LD 131 U/L Low 135-225 [facility] Comment on above: Performed By: #### WSR, B12, SERFOL, IRO N, FERR, SERIMM, HREMOP, SERMPA, SEPG, MMA #### [place] [address] Methylmalonic Acidon 019 Methylmalonic Acid 232 nmol/L Normal 79-376 [facility] Comment on above: Result Comment: This test was developed and its performance characteristics determined by [facility] [place] ([facility]). It has not been cleared or approved by the FDA. [facility] is regulated under CLIA as qualified to perform high complexity testing. This test is used for clinical purposes. It should not be regarded as investigational or for research. Performed By: #### W SR, B12, SERFOL, IRON, FERR, SERIMM, HREMOP, SERMPA, SEPG, MMA ####[place] [phone] Monclnl Protein, Seron 04-02 K/L Ratio, Serum 1.88 High 0.26-1.65 [facility] Comment on above: Performed By: #### WSR, B12, SERFOL, IRO N, FERR, SERIMM, HREMOP, SERMPA, SEPG, MMA ####[place] [phone] [place] [phone] House, Free, Serum 47.1 mg/L High 3.30-19.40 [facility] Comment on above: Result Comment: Test performed by an imm unoturbidimetric assay on Optilite instrument from [facility]. Immunoglobulin free light chain assay results should be interpreted in conjunction with other tests and in correlation with clinical picture. Performed By: #### W SR, B12, SERFOL, IRON, FERR, SERIMM, HREMOP, SERMPA, SEPG, MMA ####[address] [phone] Lambda, Free, Serum 25.0 mg/L Normal 5.7-26.3 [facility] Comment on above: Result Comment: Test performed by an imm unoturbidimetric assay on Optilite instrument from [facility]. Immunoglobulin free light chain assay results should be interpreted in conjunction with other tests and in correlation with clinical picture. Performed By: #### W SR, B12, SERFOL, IRON, FERR, SERIMM, HREMOP, SERMPA, SEPG, MMA ####[place] [address] [address] [phone] MPA Serum IgA 336 mg/dL Normal 78-391 [facility] Comment on above: Performed By: #### WSR, B12, SERFOL, IRO N, FERR, SERIMM, HREMOP, SERMPA, SEPG, MMA ####[place] [phone] [place] [phone] MPA Serum IgG 950 mg/dL Normal 717-1411 [facility] Comment on above: Performed By: #### WSR, B12, SERFOL, IRO N, FERR, SERIMM, HREMOP, SERMPA, SEPG, MMA ####[facility] [address], [place] [phone] MPA Serum IgM 136 mg/dL Normal 53-334 [facility] Comment on above: Performed By: #### WSR, B12, SERFOL, IRO N, FERR, SERIMM, HREMOP, SERMPA, SEPG, MMA ####[place] [id number] [place], [place] [phone] Protein [Mass/Vol] No M protein is identified. Normal No M protein is identified . [facility] Comment on above: Performed By: #### WSR, B12, SERFOL, IRO N, FERR, SERIMM, HREMOP, SERMPA, SEPG, MMA ####[address] [phone] Staff Review Reviewed by Chadd Ackerman MD ([id number]) Normal [facility] Comment on above: Performed By: #### WSR, B12, SERFOL, IRO N, FERR, SERIMM, HREMOP, SERMPA, SEPG, MMA ####[address] [phone] PROGRESSon 04-02-2019 PROGRESS HNO ID: [id number] Author: Thais Hebert Service: ? Author Type: Physician Type: Progress Notes Filed: 04/03/2019 1:15 PM Note Text: PATIENT NAME: Lisa Lugo REFERRING PHYSICIAN: Theron Mendoza MD ([facility]) [address] [address] PRIMARY CARE PHYSICIAN: Theron Mendoza MD CHIEF [...] CBC + DIFF (FOR REMOTE [facility] USE) - IRON + TIBC - FERRITIN [...] Leukopenia - T2DM (type 2 diabetes mellitus) ([facility]) PAST SURGICAL HISTORY Procedure Laterality Date - [...] questions satisfactorily.. Francois Hebert D.O. Medical Oncologist [facility] [place], [place] Normal [facility] Protein Electrophor.on 04-02 Albumin [Mass/Vol] 3.79 g/dL Normal 3.37-4.23 [facility] Comment on above: Performed By: #### WSR, B12, SERFOL, IRO N, FERR, SERIMM, HREMOP, SERMPA, SEPG, MMA ####[place] [address] [address] [place] [phone] Alpha 1 Globulin 0.31 gm/dL Normal 0.18-0.31 [facility] Comment on above: Performed By: #### WSR, B12, SERFOL, IRO N, FERR, SERIMM, HREMOP, SERMPA, SEPG, MMA ####[place] [address] [address] [place] [phone] Alpha 2 Globulin 0.96 gm/dL Normal 0.52-0.97 [facility] Comment on above: Performed By: #### WSR, B12, SERFOL, IRO N, FERR, SERIMM, HREMOP, SERMPA, SEPG, MMA ####[address] [place] [phone] Beta Globulin 1.17 gm/dL Normal 0.84-1.36 [facility] Comment on above: Performed By: #### WSR, B12, SERFOL, IRO N, FERR, SERIMM, HREMOP, SERMPA, SEPG, MMA ####[place] [address] [address]CM[address]helle [place] [phone] Gamma Globulin 0.97 gm/dL Normal 0.70-1.44 [facility] Comment on above: Performed By: #### WSR, B12, SERFOL, IRO N, FERR, SERIMM, HREMOP, SERMPA, SEPG, MMA ####[place] [address] [address] [place] [phone] Interpretation SEE COMMENT Normal [facility] Comment on above: Result Comment: No definitive M protein is identified on protein electrophoresis. Performed By: #### W SR, B12, SERFOL, IRON, FERR, SERIMM, HREMOP, SERMPA, SEPG, MMA ####[address]le [place] [phone] M Guy Concentratn 0.00 gm/dL Normal 0.00 [facility] Comment on above: Performed By: #### WSR, B12, SERFOL, IRO N, FERR, SERIMM, HREMOP, SERMPA, SEPG, MMA ####[place] [address] [address] Ave[address]el[place], [place] [phone] Protein [Mass/Vol] 7.2 g/dL Normal 6.0-8.4 [facility] Comment on above: Performed By: #### WSR, B12, SERFOL, IRO N, FERR, SERIMM, HREMOP, SERMPA, SEPG, MMA ####[place] [address] [address], [place] [phone] Protein [Mass/Vol] N/A Normal [facility] Comment on above: Performed By: #### WSR, B12, SERFOL, IRO N, FERR, SERIMM, HREMOP, SERMPA, SEPG, MMA ####[place] [address] [address] AveCDel[address], [place] [phone] SPE Staff Review Reviewed by Chadd Ackerman MD ([id number]) [facility] Comment on above: Performed By: #### WSR, B12, SERFOL, IRO N, FERR, SERIMM, HREMOP, SERMPA, SEPG, MMA ####[place] [address] [address] [place], [place] [phone] Remote CBCDIF (for [facility] use o nly)on 04-02-2019 Abs Baso <0.03 Normal 0.00-0.10 [facility] Abs Coffee 0.48 k/uL Normal 0.00-0.86 [facility] Abs Neut 4.30 k/uL Normal 1.45-7.50 [facility] Basophils/100 WBC (Bld) 0.2 % Normal [facility] Eosinophils (Bld) [#/Vol] 0.04 10*3/uL Normal 0.00-0.45 [facility] Eosinophils/100 WBC (Bld) 0.7 % Normal [facility] Erythrocyte distribution width (RBC) [Ratio] 13.9 % Normal 11.5-15.0 [facility] Hematocrit (Bld) [Volume fraction] 39.6 % Normal 39.0-51.0 [facility] Hemoglobin (Bld) [Mass/Vol] 12.6 g/dL Low 13.0-17.0 [facility] Lymphocytes (Bld) [#/Vol] 0.84 10*3/uL Low 1.00-4.00 [facility] Lymphocytes/100 WBC (Bld) 14.8 % Normal [facility] MCH (RBC) [Entitic mass] 27.4 pG Normal 26.0-34.0 [facility] MCHC (RBC) [Mass/Vol] 31.8 g/dL Normal 30.5-36.0 [facility] MCV (RBC) [Entitic vol] 86.1 fL Normal 80.0-100.0 [facility] Monocytes/100 WBC (Bld) 8.5 % Normal [facility] Neutrophils/100 WBC (Bld) 75.8 % Normal [facility] Platelet mean volume (Bld) [Entitic vol] 9.7 fL Normal 9.0-12.7 [facility] Platelets (Bld) [#/Vol] 243 10*3/uL Normal 150-400 [facility] RBC (Bld) [#/Vol] 4.60 10*6/uL Normal 4.20-6.00 [facility] WBC (Bld) [#/Vol] 5.67 10*3/uL Normal 3.70-11.00 [facility] Sed Rate Westergrenon 2018 Sed Rate Westergren 41 mm/hr High 0-15 [facility] Comment on above: Performed By: #### WSR, B12, SERFOL, IRO N, FERR, SERIMM, HREMOP, SERMPA, SEPG, MMA #### [facility] [address] [place], [place] [address] Vitamin B12on 04-02-2019 Cobalamin (Vitamin B12) [Mass/Vol] 595 pg/mL Normal 232-1245 [facility] Comment on above: Performed By: #### WSR, B12, SERFOL, IRO N, FERR, SERIMM, HREMOP, SERMPA, SEPG, MMA #### [facility] [address] [place], [place] [address] Cardiovascular Lab Reporton 04-26-2017 Cardiovascular Lab Report [facility] Patient Name: Lisa Lugo [facility] MR #: [id number] Physician: Jenny Parsons M.D.Medicine Service Date: 04/25/2017Division of Birthdate: 2Cardiology Room #: 3CD [id number] CardiovascularServicSt[facility] [facility].[place], [place] [address]Kmhcr Fax Cardiovascular Laboratory ReportINDICATION: Mr. Lisa Lugo is a 66-year-old man, known to havecoronary artery disease status post multiple stenting procedures in [facility]. Recently, he presented with transient ST-segment elevation in thesetting of ongoing chest pain. He underwent cardiac catheterization anddrug-eluting stenting of the distal right coronary artery de rachel stenosisas well as drug-eluting stenting of the proximal right coronary arteryin-stent restenosis. At that time, he was found to have nrxe-lkalqhn-rmula restenosis in the mid LAD. He is [...] angiography was performedfollowed by upsizing to a 6-Moldovan x 11 cm sheath. Heparin wasadministered intravenously and therapeutic ACT confirmed during theprocedure. A 6-Moldovan XB 3.5 guiding catheter was advanced and [...] the [place] wire.Angiography was performed. [place] [employer] [place] 2.5 x 15 mm noncompliantballoon was then [...] 04/25/2017/09:47 A/Jenny Coppola M.D.Date Trans: 04/26/2017 02:28 A/mmoDN_[id number]: Theron Mendoza D.O. [address] [place] [phone] Normal [facility] POC GLUCOSE LABon 04-26-2017 Glucose mass conc 99 mg/dL Normal 70-100 [facility] Comment on above: Performed By: #### [id number] ####[facility] [facility].[address] CBC COMPLETE BLOOD COUNTon 1 06-26-2016 Erythrocyte distribution width Auto Ratio (RBC) 14.3 % Normal 11.5-16.9 [facility] Comment on above: Order Comment: Yes: Add to Previous draw if able Performed By: #### 5 0608 ####[facility] Erythrocytes (RBC) 4.16 mill/mm3 Low 4.30-5.90 [facility] Comment on above: Order Comment: Yes: Add to Previous draw if able Performed By: #### 5 0608 ####[facility] Hematocrit (HCT) 34.8 % Low 39.0-55.0 [facility] Comment on above: Order Comment: Yes: Add to Previous draw if able Performed By: #### 5 0608 ####[facility] Hemoglobin mass conc (Bld) 11.8 g/dL Low 13.9-16.3 [facility] Comment on above: Order Comment: Yes: Add to Previous draw if able Performed By: #### 5 0608 ####[facility] [facility].[address] MCH 28.2 pg Normal 24.0-32.0 [facility] Comment on above: Order Comment: Yes: Add to Previous draw if able Performed By: #### 5 0608 ####[facility] [place] [address] MCHC mass conc (RBC) 33.8 g/dL Normal 32.0-36.0 [facility] Comment on above: Order Comment: Yes: Add to Previous draw if able Performed By: #### 5 0608 ####[address] MCV 83.6 fL Normal 80.0-100.0 [facility] Comment on above: Order Comment: Yes: Add to Previous draw if able Performed By: #### 5 0608 ####[address] PLAT CNT 198 Thou/mm3 Normal 100-400 [facility] Comment on above: Order Comment: Yes: Add to Previous draw if able Performed By: #### 5 0608 ####[address] WBC (Leukocytes) 3.9 Thou/mm3 Low 4.0-10.0 [facility] Comment on above: Order Comment: Yes: Add to Previous draw if able Performed By: #### 5 0608 ####[address] POC GLUCOSE LABon 04-25-2017 Glucose mass conc 232 mg/dL High 70-100 [facility] Comment on above: Performed By: #### [id number] ####[facility] [place] [address], [facility] Glucose mass conc 281 mg/dL High 70-100 [facility] Comment on above: Performed By: #### [address] ####[facility] [place] [address], [facility] Discharge Summaryon 04-20-20 Discharge Summary MR#: [id number] Admitted: 04/15/2017 Discharged: [...] history, requiring stentingin the past, presented to [facility] initially with complaints ofrecurrent chest pain at rest. Initial EKG showed minor ST-segment elevationin the inferior leads, which resolved after administration of IV heparinand nitroglycerin. [facility] and intervention. Heunderwent left heart catheterization with successful balloon dilatation andstenting of 2 lesions. The patient recovered well postprocedure with nofurther recurrence of chest pain. Right femoral access site healed well.DISCHARGE CONDITION: Stable.DISCHARGE DISPOSITION: Home.DISCHARGE MEDICATIONS: Aspirin 81 mg daily, atenolol 25 mg daily, Kukpvxal930 mg daily, Clopidogrel 75 mg daily, Lantus [...] 04/19/2017/06:17 P/Arely Campos, MDDate Trans: 04/20/2017 07:36 A/Kehinde_[id number]: Theron Mendoza D.O. [address] [place] [phone] Tino Gunderson M.D. [address] [place], [place] [id number] Normal [facility] BASIC METABOLIC PANELon 12- Calcium 9.0 mg/dL Normal 8.6-10.3 [facility] Comment on above: Order Comment: No: Do not add to previou s draw Performed By: #### 1 69, [address] ####[facility] [facility] [place] [address], [facility] Chloride 104 mmol/L Normal 98-107 [facility] Comment on above: Order Comment: No: Do not add to previou s draw Performed By: #### 1 69, [address] ####[facility] [facility] [place] [address], [facility] CO2 24 mmol/L Normal 21-31 [facility] Comment on above: Order Comment: No: Do not add to previou s draw Performed By: #### 1 69, 350[address] ####[facility] [facility] [place] [place] [address], [facility] Creatinine 0.94 mg/dL Normal 0.70-1.30 [facility] Comment on above: Order Comment: No: Do not add to previou s draw Performed By: #### 1 69, 75[address] ####[facility] [place] [address], [facility] eGFR (black) mL/min/{1.73_m2} Normal >60 [facility] Comment on above: Order Comment: No: Do not add to previou s draw Performed By: #### 1 69, 92006 ####[facility] [place] [address], [facility] eGFR (non-black) mL/min/{1.73_m2} Normal >60 Th e [facility] Comment on above: Order Comment: No: Do not add to previou s draw Performed By: #### 1 69, 614[address] ####[facility] [place] [address], [facility] Glucose mass conc 182 mg/dL High 70-100 [facility] Comment on above: Order Comment: No: Do not add to previou s draw Performed By: #### 1 69, 95158 ####[facility] [place] [address], [place] Potassium molar conc 3.9 mmol/L Normal 3.5-5.1 [facility] Comment on above: Order Comment: No: Do not add to previou s draw Performed By: #### 1 69, 48829 ####[facility] [place] [address], [place] Sodium 138 mmol/L Normal 136-145 [facility] Comment on above: Order Comment: No: Do not add to previou s draw Performed By: #### 1 69, 707[address] ####[facility] [place] [address], [place] Urea nitrogen 18 mg/dL Normal 7-25 [facility] Comment on above: Order Comment: No: Do not add to previou s draw Performed By: #### 1 0070, [address] ####[facility] CBC COMPLETE BLOOD COUNTon 1 06-17-2016 Erythrocyte distribution width Auto Ratio (RBC) 14.7 % Normal 11.5-16.9 [facility] Comment on above: Order Comment: No: Do not add to previou s draw Performed By: #### 5 0608 ####[facility] [facility].[address] Erythrocytes (RBC) 4.37 mill/mm3 Normal 4.30-5.90 [facility] Comment on above: Order Comment: No: Do not add to previou s draw Performed By: #### 5 0608 ####[facility] [facility].[address] Hematocrit (HCT) 36.5 % Low 39.0-55.0 [facility] Comment on above: Order Comment: No: Do not add to previou s draw Performed By: #### 5 0608 ####[place] [address] [facility].[address] Hemoglobin mass conc (Bld) 12.3 g/dL Low 13.9-16.3 [facility] Comment on above: Order Comment: No: Do not add to previou s draw Performed By: #### 5 0608 ####[facility] MCH 28.0 pg Normal 24.0-32.0 [facility] Comment on above: Order Comment: No: Do not add to previou s draw Performed By: #### 5 0608 ####[facility]3000 [facility].[address] MCHC mass conc (RBC) 33.5 g/dL Normal 32.0-36.0 [facility] Comment on above: Order Comment: No: Do not add to previou s draw Performed By: #### 5 0608 ####[facility] [facility].[address] MCV 83.5 fL Normal 80.0-100.0 [facility] Comment on above: Order Comment: No: Do not add to previou s draw Performed By: #### 5 0608 ####[facility] [facility].[address] PLAT CNT 167 Thou/mm3 Normal 100-400 [facility] Comment on above: Order Comment: No: Do not add to previou s draw Performed By: #### 5 0608 ####[facility] [facility].[address] WBC (Leukocytes) 4.7 Thou/mm3 Normal 4.0-10.0 [facility] Comment on above: Order Comment: No: Do not add to previou s draw Performed By: #### 5 0608 ####[place] [address] [facility] [facility].[address] Cardiovascular Lab Reporton 04-16-2017 Cardiovascular Lab Report [facility] Patient Name: Lisa Lugo [facility] MR #: [id number] Physician: Jenny Parsons M.D.Medicine Service Date: 04/15/2017Division of Birthdate: 2Cardiology Room #: 3AB [id number] Cardiovascular[place] [phone] Fax Cardiovascular Laboratory ReportINDICATION: Lisa Lugo is a 66-year-old man, known to have coronaryartery disease, status post multiple stenting procedures in the past, [facility] pain at rest. Heinitially had minor ST elevations in the inferior leads that resolved afteradministration of intravenous heparin and nitroglycerin. Because ofrecurrent chest pain, he was transferred emergently to our finishing lab technician fordiagnostic angiography and intervention.PROCEDURE:1. Bilateral selective [...] EMS services. He was placed on the finishing lab technician table.Both groin areas were prepped and draped in usual fashion. Usingmicropuncture technique, access in the right common femoral artery wasobtained and the inner cannula was advanced. Limited femoral angiographywas performed followed by upsizing to a 6-Moldovan x 11 cm sheath. Bilateralselective coronary angiography was then performed using 6-Moldovan JL4 andJR4 diagnostic catheters.Heparin was administered intravenously and therapeutic ACT confirmed duringthe procedure. A 6-Moldovan JR4 guiding catheter was advanced and used toengage the right coronary ostium. A Prowater wire was advanced into thedistal RCA. Balloon dilatation in the distal RCA was performed usingEmerge 2.0 x 12 mm balloon and inflated at 12 atmospheres. Angiographyrevealed suboptimal results. This was treated using a PROMUS Premier 2.5 x16 mm drug-eluting stent, deployed at 11 atmospheres and post dilated usingNC Quantum [place] 2.5 x 8 mm noncompliant balloon inflated [...] in-stent restenosis was performed using NC [employer] [place] 3.0 x8 mm noncompliant balloon inflated at 14 atmospheres followed by additionaldilatation using NC [employer] [place] 3.0 x 12 mm noncompliant balloon inflatedat [...] 14atmospheres and post dilated using NC [employer] [place] 3.25 x 20 mmnoncompliant balloon inflated at 20 atmospheres throughout the length ofthe stent. Final angiography after administration of intracoronarynitroglycerin showed excellent result with reduction of the stenosis to 0%.No evidence of dissection or perforation. The guiding catheter wasremoved. The procedure was concluded. The right femoral arteriotomy wasmanaged with a 6-Moldovan Perclose device with good hemostasis. The patientwas [...] 04/15/2017/06:14 P/Jenny Coppola M.D.Date Trans: 04/16/2017 07:04 A/[id number]: Theron Mendoza D.O. [address] [place] [address] A [facility] [address] Tino Gunderson M.D. [address] [facility] [id number] Normal [facility] MAGNESIUM BLOODon 04-16-2017 Magnesium 1.9 mg/dL Normal 1.9-2.7 [facility] Comment on above: Order Comment: No: Do not add to previou s draw Performed By: #### 1 [id number], [id number] ####[facility] [facility] [place] [address], [facility] GLUCOSE LABon 04-16-2017 Glucose mass conc 173 mg/dL High 70-100 [facility] Comment on above: Performed By: #### [id number] ####[facility] [facility] [place] [address], [facility] Glucose mass conc 228 mg/dL High 70-100 [facility] Comment on above: Performed By: #### [id number] ####[facility] [facility] [place] [place] [address], [facility] GLUCOSE LABon 04-15-2017 Glucose mass conc 214 mg/dL High 70-100 [facility] Comment on above: Performed By: #### [id number] ####[facility] [facility] [place] [place] [address], [place] Vital Signs Date Time Vital Sign Value Performing Clinician Facility 12-18-2023 13:53-0400 Blood Pressure Location Chadd BARBOUR [facility] 12-18-2023 13:53-0400 Diastolic blood pressure 74 mm[Hg] Chadd NILL [facility] 12-18-2023 13:53-0400 Heart rate 70 /min Chadd NILL [facility] 12-18-2023 13:53-0400 Respiratory rate 16 /min Chadd NILL [facility] 12-18-2023 13:53-0400 Systolic blood pressure 126 mm[Hg] Chadd NILL [facility] 11-05-2023 13:43-0400 Body height 177.8 cm [facility] 11-05-2023 13:43-0400 Body mass index (BMI) [Ratio] 25.7 kg/m2 [facility] 11-05-2023 13:43-0400 Body weight 81.24 kg [facility] 11-05-2023 13:43-0400 Diastolic blood pressure 71 mm[Hg] [facility] 11-05-2023 13:43-0400 Heart rate 71 /min [facility] 11-05-2023 13:43-0400 Respiratory rate 12 /min [facility] 11-05-2023 13:43-0400 Systolic blood pressure 121 mm[Hg] [facility] 10-01-2023 12:35-0400 Blood Pressure Location DOMINGA PRESLEY [facility] 10-01-2023 12:35-0400 Diastolic blood pressure 78 mm[Hg] DOMINGA PRESLEY [facility] 10-01-2023 12:35-0400 Heart rate 72 /min DOMINGA PRESLEY [facility] 10-01-2023 12:35-0400 Respiratory rate 16 /min DOMINGA PRESLEY [facility] 10-01-2023 12:35-0400 Systolic blood pressure 137 mm[Hg] DOMINGA PRESLEY [facility] 04-02-2023 09:30-0500 Body height 177.8 cm Theron Ball Other [employer] Other 04-02-2023 09:30-0500 Body mass index (BMI) [Ratio] 25.97 kg/m2 Theron Ball Other [employer] Other 04-02-2023 09:30-0500 Body weight 82.1 kg Theron Ball Other [employer] Other 04-02-2023 09:30-0500 Diastolic blood pressure 85 mm[Hg] Theron Ball Other [employer] Other 04-02-2023 09:30-0500 Respiratory rate 12 /min Theron Ball Other [employer] Other 04-02-2023 09:30-0500 Systolic blood pressure 135 mm[Hg] Theron Ball Other [employer] Other 11-01-2022 10:00-0400 Body height 177.8 cm Theron Ball Other [employer] Other 11-01-2022 10:00-0400 Body mass index (BMI) [Ratio] 25.77 kg/m2 Theron Ball Other [employer] Other 11-01-2022 10:00-0400 Body weight 81.47 kg Theron Ball Other [employer] Other 11-01-2022 10:00-0400 Diastolic blood pressure 71 mm[Hg] Theron Ball Other [employer] Other 11-01-2022 10:00-0400 Respiratory rate 12 /min Theron Ball Other [employer] Other 11-01-2022 10:00-0400 Systolic blood pressure 124 mm[Hg] Theron Ball Other [employer] Other 10-03-2022 13:45-0400 Body height 177.8 cm Theron Ball Other [employer] Other 10-03-2022 13:45-0400 Body mass index (BMI) [Ratio] 26.23 kg/m2 Theron Ball Other [employer] Other 10-03-2022 13:45-0400 Body weight 82.92 kg Theron Ball Other [employer] Other 10-03-2022 13:45-0400 Diastolic blood pressure 76 mm[Hg] Theron Ball Other [employer] Other 10-03-2022 13:45-0400 Respiratory rate 12 /min Theron Ball Other [employer] Other 10-03-2022 13:45-0400 Systolic blood pressure 160 mm[Hg] Theron Ball Other [employer] Other 11-20-2021 12:31-0400 Blood Pressure Location Tom ARGUETA [facility] 11-20-2021 12:31-0400 Diastolic blood pressure 80 mm[Hg] Tom [facility]A [facility] 11-20-2021 12:31-0400 Heart rate 74 /min Tom LIZABETH [facility] 11-20-2021 12:31-0400 Respiratory rate 16 /min Tom LIZABETH [facility] 11-20-2021 12:31-0400 Systolic blood pressure 133 mm[Hg] Tom LIZABETH [facility] En[facility]ters Encounter Date Encounter Type Care Provider Facility Start: 04-27-2024 End: 04-27-2024 ambulatory Natali Weir MD Facility: [facility] Start: 04-13-2024 End: 04-13-2024 ambulatory Natali Weir MD Facility: [facility] Start: 03-23-2024 End: 03-23-2024 ambulatory Natali Weir MD Facility: [facility] Start: 01-08-2024 ambulatory Chadd BARBOUR [facility] Start: 01-06-2024 End: 01-06-2024 ambulatory Natali Weir MD Facility: [facility] Start: 01-01-2024 End: 01-01-2024 ambulatory Chadd BARBOUR Facility:CD:[id number] Start: 12-18-2023 End: 12-18-2023 ambulatory Chadd BARBOUR Facility:[facility] Start: 12-18-2023 End: 12-18-2023 Patient encounter procedure Chadd BARBOUR [facility] [place] Start: 12-16-2023 End: 12-16-2023 ambulatory Natali Weir MD Facility:[facility] Start: 12-02-2023 End: 12-02-2023 ambulatory Natali Weir MD Facility: [facility] Start: 11-18-2023 End: 11-18-2023 ambulatory Natali Weir MD Facility: [facility] Start: 11-05-2023 End: 11-05-2023 ambulatory [facility] Work Phone: Start: 11-05-2023 End: 11-05-2023 Patient encounter procedure [facility] Physician [facility] Work Phone: Start: 11-05-2023 Non-patient / Non-visit [facility] Physician [facility] Work Phone: Start: 10-01-2023 End: 10-01-2023 ambulatory DOMINGA PRESLEY Facility:[facility] Start: 10-01-2023 End: 10-01-2023 Patient encounter procedure DOMINGA PRESLEY [facility] Start: 09-17-2023 Non-patient / Non-visit [facility] Physician [facility] Work Phone: Start: 04-03-2023 End: 04-03-2023 ambulatory Theron Mendoza Other [employer] Other Start: 04-03-2023 Telephone encounter Theron FERGUSON [facility] Start: 04-02-2023 End: 04-02-2023 ambulatory Theron Mendoza Other [employer] Other Start: 04-02-2023 Office outpatient vi sit 25 minutes Theron Mendoza [facility] Start: 04-01-2023 End: 04-01-2023 ambulatory Theron Mendoza Other [employer] Other Start: 04-01-2023 Telephone encounter Theron FERGUSON [facility] Start: 01-07-2023 End: 01-07-2023 ambulatory Theron Mendoza Other [employer] Other Start: 01-07-2023 Telephone encounter Theron Mendoza [facility] Start: 11-01-2022 End: 11-01-2022 ambulatory Theron Mendoza Other [employer] Other Start: 11-01-2022 Patient encounter procedure Theron Mendoza [facility] Start: 10-03-2022 End: 10-03-2022 ambulatory Theron Mendoza Other [employer] Other Start: 10-03-2022 Office outpatient vi sit 15 minutes Theron Mendoza [facility] Start: 10-03-2022 Telephone encounter Theron Mendoza [facility] Start: 04-30-[address] THERON MENDOZA Facili ty:[facility] Start: 03-29-2022 End: 03-30-[address] THERON MENDOZA Facility:[facility] Start: 11-25-2021 End: 11-26-[address] THERON MENDOZA Facility:[facility] Start: 11-24-2021 End: 11-25-[address] THERON MENDOZA Facility:[facility] Start: 11-22-2021 Adult health examination Theron Mendoza Other [employer] Other Start: 11-20-2021 End: 11-20-2021 Patient encounter procedure Tom ARGUETA [facility] Start: 09-14-2021 End: 09-15-[address] THERON MENDOZA Facility:[facility] Start: 09-10-2017 End: 09-11-2017 Ambulatory DEFAULT PHYSICIAN Facility:[facility] Start: 04-25-2017 End: 04-26-2017 Ambulatory PROVIDER UNKNOWN Facility:[facility] Start: 04-15-2017 End: 04-16-2017 Evaluation and management of inpatient THERON MATT Facility:[facility] Procedures Date Procedure Procedure Detail [...] prostatectomy Tomgiuliana ARGUETA Start: 09-14-2011 Cystoscopy Tom JEFF NARCISO Start: 05-02-2010 Cystoscopy Tom STUART Start: 04-18-2010 Cystoscopy Tom JEFF SANDOVALShahnaz Start: 09-07-2008 Laser ablation of prostate Tomgiuliana ARGUETA Start: 08-31-2008 Cystoscopy Tom AGUILAR JAIMEShahnaz Start: 08-25-2008 Urodynamic studies Mayr ARGUETA Start: 08-03-2008 Transrectal biopsy o f prostate using ultrasound guidance Tom ARGUETA Arthroscopy of knee Tom ARGUETA Cardiac catheterization Andrew BARBOUR Depression screening Rasheed Mendoza Other Operation on heart Tom MARTINEZ Placement of stent i n cardiac conduit Tom ARGUETA Placement of stent i n coronary artery Chadd BARBOUR Plan of Treatment Date Care Activity Detail Author Start: 10-02-2024 ambulatory Ambulatory Facility:[facility] XR Lumbar spine Views [facility] XR Pelvis 1 or 2 Views [facility] Immunizations Immunization Date Immunization Notes Care Provider Fa keniaty 04-03-2022 influenza virus vaccine, split virus (incl. purified surface antigen) Theron Mendoza Other [facility] [employer] Other 04-03-2022 influenza virus vaccine, unspecified formulation [facility] 04-03-2022 Prevnar 20 Theron Mendoza Other [facility] 03-28-2021 influenza virus vaccine, split virus (incl. purified surface antigen) Theron Mendoza Other [facility] [employer] Other 03-28-2021 influenza virus vaccine, unspecified formulation DOMINGA PRESLEY [facility] 04-03-2018 diphtheria, tetanus toxoids and acellular pertussis vaccine, unspecified formulation Theron Mendoza Other [facility] pneumococcal Conjuga te, unspecified formulation; Translations: [Need for prophylactic vaccination against Streptococcus pneumoniae (pneumococcus)] Theron Mendoza Other [employer] Other Payers Date Payer Category Payer Private Health Insurance 2016 Unknown 1959 Medicare [id number] 1959 Private Health Insurance [id number] 1959 Self-pay [id number] 1950 Unknown [id number] 2.16.84 [id number] 1951 Unknown [id number] 2.16.84 0.1.802551.3.579.2.593 1951 Unknown [id number] 2.16.84 0.1.777077.3.579.2.593 1951 Unknown [id number] 2.16.84 0.1.070121.3.579.2.593 1951 Unknown [id number] 2.16.84 0.1.972895.3.579.2.593 1951 Unknown [id number] 2.16.8 40.1.836939.3.579.2.727 1951 Unknown [id number] 2.16.8 40.1.187734.3.579.2.727 1951 Unknown [id number] 2.16.8 40.1.806365.3.579.2.727 1951 Unknown [id number] 2.16.8 40.1.474551.3.579.2.727 1951 Unknown [id number] 2.16.8 40.1.438637.3.579.2.727 1951 Unknown [id number] 2.16. 840.1.016750.3.579.2.196 1951 Unknown [id number] 2.16. 840.1.514248.3.579.2.196 1951 Unknown [id number] 2.16. 840.1.278003.3.579.2.196 1951 Unknown [id number] 2.16 840.1.127552.3.579.2.196 1951 Unknown [id number] 2.16. 840.1.387846.3.579.2.196 1950 Unknown [id number] 2.16 840.1.719439.3.579.2.196 1950 Unknown [id number] 2.16. 840.1.197560.3.579.2.196 Medicare [id number] Social History Date Type Detail Facility Start: 04-10-2021 End: 12-18-2023 Tobacco smoking status Ex-smoker (finding) [facility] Sex Assigned At Male [facility] Tobacco smoking status Never [facility] Start: 11-05-2023 Tobacco smoking stat us NCIS Never smoked tobacco (finding) [facility] Start: 1950 Sex Assigned At Male F [facility] Medical Equipment Procedure Code Equipment Code Equipment Origin al Text Equipment Identifier Dates BD Pen Needle Sh ort U/F 31G X 8 MM Start: 01-07-2023 Functional Status Date Assessment Result Facility 12-18-2023 Functional Status N/A [facility] [place] 10-01-2023 Functional Status N/A [facility] 11-20-2021 Functional Status N/A [facility] Clinical Notes 11-20-2021 to 12-18-2023 Note [...] Daily pioglitazone 1 (more content not included)... [facility] Comment on above: Result Comment: Elec [...] urethra. Follow these instructions at home: Take xhay-sxm-nzmepta and prescription medicines only as told by [...] provider. Document Revised: 11/01/2021 Document Reviewed: 11/01/2021 [employer] Patient Education 2022 [employer]. Follow Up Care 09/17/2022 11:39:15 With:DOMINGA PRESLEY PA-C, URL Address: [address] [place] [address] When: Unknown [facility] 04-02-2023 Evaluation note Encounter Date Diagnosis [...] risk for cerebrovascular and cardiovascular disease. 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 [...] dyspnea, CP or lightheadedness _update office tomorrow [employer] Other 12-04-2023 Evaluation note* Encounter Date Diagnosis Assessment Notes Treatment Notes Treatment Clinical Notes Mar, Primary hypertension (ICD-10 - I10) Mar, Type 2 diabetes mellitus with hyperglycemia (ICD-10 - E11.65) Mar, Mixed hyperlipidemia (ICD-10 - E78.2) Mar, ASHD (arteriosclerotic heart disease) (ICD-10 - I25.10) Mar, High risk medication use (ICD-10 - Z79.899) [employer] Other 09-11-2023 Evaluation note* Encounter Date Diagnosis Assessment Notes Treatment Notes Treatment Clinical Notes Dec, Type 2 diabetes mellitus with hyperglycemia (ICD-10 - E11.65) [employer] Other 07-06-2023 Evaluation note* Encounter Date Diagnosis [...] (ICD-10 - Z12.5) Completed w/ , normal [employer] Other 06-07-2023 Evaluation note* Encounter Date Diagnosis [...] to achieve/maintain a normal BMI. Avoid NSAIDs [employer] Other 07-25-2022 Hospital Discharge instructions Patient Education [...] Follow these instructions at home: Medicines Take tinb-xqd-xusjfat and prescription medicines only as told by [...] or the blood stops without treatment. Take mpfh-aad-vhndxzf and prescription medicines only as told by your health care provider. Drink enough fluid to keep your urine clear or pale yellow. This information is not intended to replace advice given to you by your health care provider. Make sure you discuss any questions you have with your health care provider. Document Released: 04/15/2006 Document Revised: 09/09/2019 Document Reviewed: 05/18/2017 [employer] Patient Education 2019 [employer] Follow Up Care 09/21/2021 10:23:43 With:LIZABETH NUÑEZ, Tom Cohen, URL Address: [facility] [address] , [place] [address]- [phone] When: Unknown [facility] evaluation + Plan note Future Appointments Appointment Date:11/28/2021 08:45:00 AM Scheduled Provider: Location:[facility] Appointment Type:Urology CALL PAT FT Appointment Date:12/12/2021 10:30:00 AM Scheduled Provider: Location:[facility] Appointment Type:Urology FT Appointment Date:04/13/2022 10:45:00 AM Scheduled Provider:Tom ARGUETA MD Location:[facility] Appointment Type:URO Office Visit [facility] evaluation + Plan note Future Appointments Appointment Date:10/02/2024 10:15:00 AM Scheduled Provider:Tom ARGUETA MD Location:[facility] Appointment Type:URO Office Visit Diagnostic Tests Pending * PSA Total 10/01/23 [facility] evaluation + Plan note Future Appointments Appointment Date:10/02/2024 10:15:00 AM Scheduled Provider:Tom ARGUETA MD Location:[facility] Appointment Type:URO Office Visit [facility] [place] Other Evaluation note* Diagnosis Onset Date Resolution Status Anemia acute ASHD (arteriosclerotic heart disease) acute GERD (gastroesophageal reflux disease) acute Hypercholesterolemia acute Hypertension acute Type 2 diabetes mellitus with hyperglycemia acute Medicare annual wellness visit, subsequent noneactive Screening for colon cancer n [facility] Work Phone: History general Narrative - Reported* Type Description Date Medical History ASHD Medical History HTN Medical History Hyperlipidemia Medical History T2DM Medical History GERD Surgical History ANGIOPLASTY Surgical History [facility] PCI/stent RCA and LAD 2007 Surgical History [facility] PCI/stent RCA 2016 Surgical History C PCI/stent OM and LCx 2016 Surgical History C PCI/stent RCA x 2 2017 Surgical History C PCI/stent LAD 2017 Surgical History TURP, TRUS/bx 2009 Surgical History Arthroscopy right knee 2005, 20 14 Surgical History Arthroscopy left knee 2004 Hospitalization History see surgical history [employer] Other Hospital course Narrative No data available for this section [facility] Hospital Discharge instructions No data available for this section [facility] [place] note No data available for this section [facility] reason for referral (narrative)* Reason Referral for interna l derangement right knee Diagnosis 1 Internal derangement of right knee (M23.91) Referral Organization [facility] C bhargav Referring Provider First Name Theron [...] Notes MRI right knee to be included [employer] Other Summary Purpose Family History No Family [...] and content) DATE CREATED AUTHOR 10/16/2017 [facility] DATE CREATED AUTHOR AUTHOR'S ORGANIZ ATION 04/04/2019 [facility] DATE CREATED AUTHOR AUTHOR'S ORGANIZ ATION 04/30/2022 [facility] DATE CREATED AUTHOR AUTHOR'S ORGANIZ ATION 01/08/2024 [facility] DATE CREATED AUTHOR AUTHOR'S ORGANIZ ATION 05/12/2024 [facility] Care Team (unrecognized sect ion and [...] Status: Inactive Member Role Status Dates Theron Matt , DO Primary Care Provide r, Attending Provider Active Start: November 05, 2023 End: November 05, 2023 REASON FOR VISIT (unrecogniz ed section and content) [facility] InformationNo InformationBlood Work?Check UpUpdate Goals (unrecognized section [...] BE BASED ON THE PRIMARY CLINICAL RECORDS. [email or web address] provides no warranty or guarantee of the accuracy or completeness of information in this document.
[2024-09-25 10:05] LABS: Prostate Specific Antigen Dx 2.25 ng/mL (<=4.00)
== END 2024-09-25 07:29 | disposition home or self-care (01) ==
LOC: LAB 07:29
PROVIDERS: PCP Internal Medicine; Visit Provider Physician Assistant
DX: N40.1 Benign prostatic hyperplasia with lower urinary tract symptoms (principal)
CPT/HCPCS: 36415; 84153

== ENCOUNTER 2024-11-03 07:18 | Outpatient (OUT) | payer MEDICARE, OTHER, SELFPAY ==
--- OUTSIDE RECORDS SUMMARY | 2024-10-02 10:00 | XMS_ITS ---
Author Name Auto Generated Organization [facility] Care Team Providers Care Pancake Professional Name Role Phone Carmella NUÑEZ, Natali Luo Attending Unavailable Carmella NUÑEZ, Andbishnu Luo Attending Unavailable Carmella NUÑEZ, Andbishnu Luo Attending Unavailable Carmella NUÑEZ, Andbishnu Luo Attending Unavailable Carmella NUÑEZ, Andbishnu Luo Attending Unavailable Carmella NUÑEZ, Andbishnu Luo Attending Unavailable Carmella NUÑEZ, Natali Luo Attending Unavailable Tom ARGUETA Attending Unavailable NILL, Chadd Cohen Attending Unavailable NILL, Chadd Cohen Attending Unavailable NILL, Chadd Cohen Attending Unavailable PROBLEMS No Problem Records Found PROCEDURES No Procedure Records Found RESULTS PATIENT EDUCATION Observed: 10/02/2024 11:15 AM Status: F Source: [facility] Patient Education Urology Benign Prostatic Hyperplasia Benign [...] or symptoms? Symptoms of this condition include: ??? Getting up often during the night to urinate. ??? Needing to urinate frequently during the day. ??? Difficulty starting urine flow. ??? Decrease in size and strength of your urine stream. ??? Leaking (dribbling) after urinating. ??? Inability to pass urine. This needs immediate treatment. ??? Inability to completely empty your bladder. ??? Pain when you pass urine. This is more common if there is also an infection. ??? Urinary tract infection (UTI). How is this diagnosed? This condition is diagnosed based on your medical history, a physical exam, and your symptoms. Tests will also be done, such as: ??? A post-void bladder scan. This measures any amount of urine that may remain in your bladder after you finish urinating. ??? A digital rectal exam. In a rectal exam, your health care provider checks your prostate by putting a lubricated, gloved finger into your rectum to feel the back of your prostate gland. This exam detects the size of your gland and any abnormal lumps or growths. ??? An exam of your urine (urinalysis). ??? A prostate specific antigen (PSA) screening. This is a blood test used to screen for prostate cancer. ??? An ultrasound. This test uses sound waves [...] severity of your condition. Treatment may include: ??? Observation and yearly exams. This may be the only treatment needed if your condition and symptoms are mild. ??? Medicines to relieve your symptoms, including: ? Medicines to shrink the prostate. ? Medicines to relax the muscle of the prostate. ??? Surgery in severe cases. Surgery may include: [...] the urethra. Follow these instructions at home: ??? Take zmpx-xff-elzzgqo and prescription medicines only as told by your health care provider. ??? Monitor your symptoms for any changes. Contact your health care provider with any changes. ??? Avoid drinking large amounts of liquid before going to bed or out in public. ??? Avoid or reduce how much caffeine or alcohol you drink. ??? Give yourself time when you urinate. ??? Keep all follow-up visits. This is important. Contact a health care provider if: ??? You have unexplained back pain. ??? Your symptoms do not get better with treatment. ??? You develop side effects from the medicine you are taking. ??? Your urine becomes very dark or has a bad smell. ??? Your lower abdomen becomes distended and you have trouble passing urine. Get help right away if: ??? You have a fever or chills. ??? You suddenly cannot urinate. ??? You feel light-headed or very dizzy, or you faint. ??? There are large amounts of blood or clots in your urine. ??? Your urinary problems become hard to manage. ??? You develop moderate to severe low back or flank pain. The flank is the side of your body between the ribs and the hip. These symptoms may be an emergency. Get help right away. Call 911. ??? Do not wait to see if the symptoms will go away. ??? Do not drive yourself to the hospital. Summary ??? Benign prostatic hyperplasia (BPH) is an enlarged prostate that is caused by the normal aging process. It is not caused by cancer. ??? An enlarged prostate can press on the urethra. This can make it hard to pass urine. ??? This condition is more likely to develop in men older than 50 years. ??? Get help right away if you suddenly cannot urinate. This information is not intended to replace advice given to you by your health care provider. Make sure you discuss any questions you have with your health care provider. Document Revised: 11/01/2021 Document Reviewed: 11/01/2021 [employer] Patient Education ? 2023 [employer]. AMBULATORY VISIT SUMMARY Observed: 10/02 10:00 AM Status: F Source: [facility] Ambulatory Visit Summary DUKELISA CORONA Vicki :1950 Visit Date:10/02/2024 Ambulatory Visit Instructions Your Diagnosis BPH with urinary obstruction History of gross hematuria Your Care Team Attending Physician - LIZABETH NUÑEZ, Tom Cohen Primary Care Physician - JUANA LORA DO This Is Your Medications List Contact prescribing physician if questions or concerns aspirin (aspirin 81 mg oral tablet) atenolol (atenolol 25 mg Tab) atorvastatin (atorvastatin 80 mg Tab) baclofen (baclofen 10 mg oral granule) clopidogrel (Plavix 75 mg Tab) insulin glargine (Lantus Solostar Pen) pantoprazole (Pantoprazole [address] Tab) pioglitazone (pioglitazone 15 mg Tab) Procedures Performed Colonoscopy (01/01/2024), Cystoscopy (04/08/2018), Colonoscopy (10/07/2013), TURP - Transurethral resection of prostate (10/11/2011), Cystoscopy (09/14/2011), Cystoscopy (05/02/2010), Cystoscopy (04/18/2010), Laser ablation of prostate (09/07/2008), Cystoscopy (08/31/2008), Urodynamics (08/25/2008), Transrectal biopsy of prostate using ultrasound (US) guidance (08/03/2008), Arthroscopy of knee, Cardiac catheterization, Patient has a coronary artery stent (Peri2), Placement of stent in coronary artery. Discharge Vitals Temperature (Temporal Artery) 37 ???C Heart Rate (Peripheral) 62 Respiratory Rate 16 Blood Pressure 136/86 Height 177 cm Height 70 in Weight 80.5 kg Weight 177.472 lb BMI 25.7 What to do next You Need to Schedule the Following Appointments Follow Up with LIZABETH NUÑEZ, SANDRA Masters When: Where: [address] [place] [address]- Medications What How Much When Instructions Unchanged [...] prescribing physician if questions or concerns Unchanged baclofen (baclofen 10 mg oral granule) Contact prescribing physician if questions or concerns [...] if questions or concerns Allergies No Known Medication Allergies metFORMIN (Diarrhea) [...] using Cologuard test Seborrheic keratosis Solar keratosis Spinal stenosis Testicle pain Type 2 diabetes mellitus Urinary [...] you for choosing us for your care. Education Materials Benign Prostatic Hyperplasia Benign prostatic [...] or symptoms? Symptoms of this condition include: ??? Getting up often during the night to urinate. ??? Needing to urinate frequently during the day. ??? Difficulty starting urine flow. ??? Decrease in size and strength of your urine stream. ??? Leaking (dribbling) after urinating. ??? Inability to pass urine. This needs immediate treatment. ??? Inability to completely empty your bladder. ??? Pain when you pass urine. This is more common if there is also an infection. ??? Urinary tract infection (UTI). How is this diagnosed? This condition is diagnosed based on your medical history, a physical exam, and your symptoms. Tests will also be done, such as: ??? A post-void bladder scan. This measures any amount of urine that may remain in your bladder after you finish urinating. ??? A digital rectal exam. In a rectal exam, your health care provider checks your prostate by putting a lubricated, gloved finger into your rectum to feel the back of your prostate gland. This exam detects the size of your gland and any abnormal lumps or growths. ??? An exam of your urine (urinalysis). ??? A prostate specific antigen (PSA) screening. This is a blood test used to screen for prostate cancer. ??? An ultrasound. This test uses sound waves [...] severity of your condition. Treatment may include: ??? Observation and yearly exams. This may be the only treatment needed if your condition and symptoms are mild. ??? Medicines to relieve your symptoms, including: ? Medicines to shrink the prostate. ? Medicines to relax the muscle of the prostate. ??? Surgery in severe cases. Surgery may include: [...] the urethra. Follow these instructions at home: ??? Take cawt-jex-dnmltqs and prescription medicines only as told by your health care provider. ??? Monitor your symptoms for any changes. Contact your health care provider with any changes. ??? Avoid drinking large amounts of liquid before going to bed or out in public. ??? Avoid or reduce how much caffeine or alcohol you drink. ??? Give yourself time when you urinate. ??? Keep all follow-up visits. This is important. Contact a health care provider if: ??? You have unexplained back pain. ??? Your symptoms do not get better with treatment. ??? You develop side effects from the medicine you are taking. ??? Your urine becomes very dark or has a bad smell. ??? Your lower abdomen becomes distended and you have trouble passing urine. Get help right away if: ??? You have a fever or chills. ??? You suddenly cannot urinate. ??? You feel light-headed or very dizzy, or you faint. ??? There are large amounts of blood or clots in your urine. ??? Your urinary problems become hard to manage. ??? You develop moderate to severe low back or flank pain. The flank is the side of your body between the ribs and the hip. These symptoms may be an emergency. Get help right away. Call 911. ??? Do not wait to see if the symptoms will go away. ??? Do not drive yourself to the hospital. Summary ??? Benign prostatic hyperplasia (BPH) is an enlarged prostate that is caused by the normal aging process. It is not caused by cancer. ??? An enlarged prostate can press on the urethra. This can make it hard to pass urine. ??? This condition is more likely to develop in men older than 50 years. ??? Get help right away if you suddenly cannot urinate. This information is not intended to replace advice given to you by your health care provider. Make sure you discuss any questions you have with your health care provider. Document Revised: 11/01/2021 Document Reviewed: 11/01/2021 [employer] Patient Education ??? 2023 [employer]. UROLOGY OFFICE/CLINIC NOTE Observed: 09/2024 10:00 AM Status: F Source: [facility] Urology Office/Clinic Note Chief Complaint 1 year with PSA HPI Staff 73 yr old male here for 1 yr f/u w/ PSA Dx: BPH, Gross hematuria No urology meds PSA 09/17/23 -1.9 & 41.1% 09/25/24 - 2.25 IPSS score of 8 today. Frequency and intermittency less than half the time. Nocturia x2. Denies all other urinary symptoms at this time.. History of Present Illness Tests reviewed: reviewed UA and PSA. I have reviewed the previous health record information and history for this patient from Dr. Argueta I have reviewed and verified the staff HPI to be accurate for this encounter. There have been no associated fever, chills, flank pain, or blood in the urine. Denies any urinary infections since last encounter. Review of Systems PHQ Score Initial Depression Screen Score: 0 SCORE ROS - Provider Constitutional: denies weight loss, denies hot flashes. Eyes: denies eye problems. Gastrointestinal: denies nausea, denies vomiting. Cardiovascular: denies chest pain or angina. Integumentary: no dryness Musculoskeletal: denies musculoskeletal symptoms. ENMT: denies otolaryngeal symptoms. Respiratory: no shortness of breath. Heme/Lymph: denies easy bleeding tendency, denies easy bruising tendency. Psychiatric: no confusion, no anxiety. Genitourinary: See HPI. Physical Exam Vitals & Measurements T: 37 ???C(Temporal Artery) HR: 62(Peripheral) RR: 16 BP: 136/86 HT: 70 in HT: 177 cm WT: 177.472 lb WT: 80.5 kg BMI: 25.7 General Appearance: alert, no distress, well nourished, well developed male. Assessment/Plan ENRIQUE 1 Encouraged pt on the importance of dm control. 1. BPH with urinary obstruction (N40.1: Benign prostatic hyperplasia with lower urinary tract symptoms) PSA 03/20/21 - 2.64 09/12/22 - 2.00 & 37% 09/17/23 - 1.9 & 41% 09/25/24 - 2.25 PSA continues to fluctuate over time. UA today negative for blood or infection. IPSS 8 (5) Not taking any BPH meds. Strong stream. Emptying well. Denies UTIs. -F/up in 1 year w/ PSA 2. History of gross hematuria (Z87.898: Personal history of other specified conditions) Hematuria workup 11/2021 neg for malignancy. MINESH 09/17/23 - Unremarkable kidneys & bladder. Slightly heterogeneous prostate. Denies recurrence of gross hematuria. Follow-up With When Contact Information LIZABETH NUÑEZ, Tom Cohen, [address] [place] [address]- Additional Instructions: 1 year w/ PSA Patient Education Benign Prostatic Hyperplasia I, Jennifer Orozco, personally scribed for Dr. Argueta on 10/02/2024 11:16:08. . Documentation recorded by the scribe, Jennifer Orozco, accurately reflects the services(s) I performed and decisions made by me. Authenticated by Dr. Argueta on 10/02/2024 11:17:28. Problem List/Past Medical History Ongoing Anemia Anticoagulated [...] using Cologuard test Seborrheic keratosis Solar keratosis Spinal stenosis Testicle pain Type 2 diabetes mellitus Urinary retention Historical Benign hypertension BPH - benign prostatic hyperplasia Diabetes mellitus type 2 Gastroesophageal reflux disease Hyperlipidemia Procedure/Surgical History Colonoscopy (01/01/2024), Cystoscopy (04/08/2018), Colonoscopy (10/07/2013), TURP - Transurethral [...] Tab, 80 mg= 1 tab(s), Oral, Daily baclofen 10 mg oral granule Lantus Solostar Pen, 50 unit(s), SubCutaneous, Daily Pantoprazole [address] Tab, 40 mg= 1 tab(s), Oral, Daily pioglitazone 15 mg Tab, Oral, Daily Plavix 75 mg Tab, 75 mg= 1 tab(s), Oral, Daily Allergies No Known Medication Allergies metFORMIN (Diarrhea) Social History Alcohol - Denies Alcohol Use, 12/15/2018 Never., 09/27/2024 Substance Abuse - Denies Substance Abuse, 12/15/2018 Never., 09/27/2024 Tobacco Former smoker, quit more than 30 days ago Tobacco Use:. Never Smokeless Tobacco Use:. Cigarettes, Yes, 10/02/2024 Family History Heart disease: Father. Hyperlipidemia: Father. Hypertension: Father. Immunizations Vaccine Date Status influenza virus vaccine, inactivated 03/28/2021 Recorded Lab Results Ambulatory Point of Care Results Bilirubin Urine Dipstick: Negative (10/02/24 10:17:00) Blood Urine Dipstick: Negative (10/02/24 10:17:00) Glucose Urine Dipstick: 1+ 250 mg/dl (10/02/24 10:17:00) Ketones Urine Dipstick: Trace - 5 mg/dl (10/02/24 10:17:00) Leukocytes Urine Dipstick: Negative (10/02/24 10:17:00) Nitrite Urine Dipstick: Negative (10/02/24 10:17:00) Protein Urine Dipstick: 1+ (30 mg/dl) (10/02/24 10:17:00) Specific [place] Urine Dipstick: 1.020 (10/02/24 10:17:00) Urine Appearance Urine Dipstick: Clear (10/02/24 10:17:00) Urine Color Urine Dipstick: Yellow (10/02/24 10:17:00) Urobilinogen Urine Dipstick: Normal 0.2-1 EU/dl (10/02/24 10:17:00) pH Urine Dipstick: 6 (10/02/24 10:17:00) Result Comment: Electronical ly Signed By: Tom ARGUETA MD\Date and Time Signed: 10/02/24 11:17 EDT\.br\Electronically Co-Signed By: Jennifer Orozco\Date and Time Co-Signed: 10/02/24 11:16 EDT GENERAL SURGERY OFFICE/CLINI C NOTE Observed: 12/18/2023 4:28 PM Status: F Source: [facility] General Surgery Office/Clini c Note Chief Complaint consultation for positive Cologuard HPI Staff 73 year old male presents on consultation from Dr. Lora for positive Cologuard. Denies abdominal or rectal [...] Oral, Daily pioglitazone 15 mg Tab, Oral, Daily Plavix 75 mg Tab, 75 mg= 1 tab(s), Oral, Daily Allergies No Known Allergies No Known Medication Allergies metFORMIN (Diarrhea) Social History Alcohol - Denies Alcohol Use, 12/15/2018 Substance Abuse - Denies Substance Abuse, 12/15/2018 Tobacco Former smoker, quit more than 30 days ago Tobacco Use:. Never Smokeless Tobacco Use:. Cigarettes, 1 per day. Started age 18.0 Years. Stopped age 38 Years., 12/18/2023 Family History Heart disease: Father. Hyperlipidemia: Father. Hypertension: Father. Immunizations Vaccine Date Status influenza virus vaccine, inactivated 03/28/2021 Recorded Result Comment: Electronical ly Signed By: Chadd BARBOUR MD\.br\Date and Time Signed: 12/18/23 16:28 EDT AMBULATORY VISIT SUMMARY Observed: 12/17 2:25 PM Status: F Source: [facility] Ambulatory Visit Summary LISA LUGO :1950 Visit Date:12/18/2023 Ambulatory Visit Instructions Your Care Team Attending Physician - Chadd BARBOUR MD Primary Care Physician - JUANA LORA DO This Is Your Medications List Contact [...] NUÑEZ, Tom Cohen Where: [facility] [address] [address]- Medications What How Much When Instructions Unchanged [...] you for choosing us for your care. ALLERGIES DATE TYPE / CODE NAME / CODE REACTION SEVERITY SOURCE [id number](SNOME D CT) No Known Allergies [facility] [id number](SNOME D CT) metFORMIN [id number] [facility] [id number](SNOME D CT) No Known Medication Allergies [facility] ENCOUNTERS ADMIT/DISCHARGE ACCOUNT NUMBER ADMITTING ENCOUNTER CLASS LOCATION SOURCE 10/02/2024/ 5 [id number] [facility]ulatory [place] [facility]: CD:[id number] [facility] 04/27/2024/ 4 [id number] Ambulatory PM [facility] [place]PM [facility] 04/13/2024/ 4 [id number] Ambulatory PM [facility]PM [facility] 03/23/2024/ 4 [id number] Ambulatory PM [facility] 01/08/2024 [id number] Ambulatory GS [facility]GS [facility] 01/06/2024/ 4 [id number] Ambulatory PM [facility]PM [facility] 01/01/2024/ 4 [id number] Ambulatory CD:[id number] Building:CD:2 [id number] [facility] 12/18/2023/ 4 [id number] Ambulatory GS [facility] [facility]: Procedure [facility] 12/16/2023/ 4 [id number] [facility] 4 [id number] [facility]/18[facility]/ 4 [id number] Ambulatory PM [facility]PM [facility] PAYERS ENCOUNTER GUARANTOR PAYER SUBSCRIBER SOURCE 10/02/2024 LISA SORIANO: [facility]: ~~(4 1 (HP) Primary Insurance:MEDICAREPolic y Number: [id number] Date:4930-31-47[address], [place] [address]KN: LISA BAPTISTE [facility] 10/02/2024 Secondary Insurance[facility] Number: [id number] Date:2685-31-98[address] [address], [place] [address]BJ: LISA BAPTISTE [facility] 04/27/2024 Lisa SanchezB: [place] [address] Primary Insurance[facility] Number: Effective Date:8684-22-61Bpiv Name:MEDP [address] [address], [place] [address]YL: Lisa SanchezB: [id number] [place] [address] [facility] 04/27/2024 Secondary Insurance:[facility] Number: Effective Date:9225-52-18Ubdd Name:COMP [address] [address] [address]OD: Lisa Soriano: [id number] [place] [address] [facility] 04/13/2024 Lisa Soriano: [place] [address] Primary Insurance:[facility] HospitalPoly Number: Effective Date:0269-50-69Hlea Name:[place] [address]PC: Lisa SanchezB: [id number] [place] [phone] [facility] 04/13/2024 Secondary Insurance:[facility] HospitalPolicy Number: Effective Date:4364-50-77Lkjx Name:COMP [address] [address], [place] [address]HP: Lisa Soriano: [id number] [place] [phone] [facility] 03/23/2024 Lisa SanchezB: [place] [phone] Primary Insurance:[facility] Number: Effective Date:1277-93-61Dadn Name:[facility] Naomi [address], [place] [address]GO: Lisa Soriano: [id number] [place] [phone] [facility] 03/23/2024 Secondary Insurance:[facility] HospitalPolicy Number: Effective Date:2290-21-37Htub Name:COMP [address] [address], [place] [address]ZY: Lisa Soirano: [id number] [place] [id number] [facility] 01/08/2024 LISA [facility]ORIANO: [facility] ~~(4 1 (HP) Primary Insurance:MEDICAREPolic y Number: [id number] Date:1666-29-23[address] [address]XR[place], [place] [address]ZK: LISA BAPTISTE [facility] 01/08/2024 Secondary Insurance:[facility] Number: [id number] Date:4129-21-68[address] [place] [address]LD: LISA BAPTISTE [facility] 01/06/2024 Lisa Soriano: [place] [id number] Primary Insurance:[facility] HospitalPolicy Number: Effective Date:3088-39-52Dzzu Name:MEDP [address] [address] [address]RD: Lisa Soriano: [id number] [address] 01/06/2024 Secondary Insurance:[facility] HospitalPolicy Number: Effective Date:9321-64-24Behx Name:COMP [address] [address], [place] [address]QT: Lisa Soriano: [id number] [address] 01/01/2024 LISA SORIANO: [facility]: ~~(4 1 (HP) Primary Insurance:MEDICAREPolic y Number: [id number] Date:9663-22-91[address] [address]Q[place]XRORL [place] [address]QJ: LISA BAPTISTE [facility] 01/01/2024 Secondary Insurance:[facility]ITALPolicy Number: [id number] Date:3815-40-26LI [address] [place] [address]SA: [facility]/18/[facility]23 LISA Vicki DAPHNEB: CALLAHANVIJAYA CELESTETe: ~~(4 1 (HP) Primary Insurance:MEDICAREPolic y Number: [id number] Date:1083-24-95[address] [address]YZPJNCE, [place] [address]SC: LISA Vicki DUKEEKATERINA [facility] 12/18/2023 Secondary Insurance:[facility] CAREPolicy Number: [id number] Date:1264-82-36[address] [place] [address]GX: LISA Vicki DUKEEKATERINA [facility] 12/16/2023 Lisa SanchezB: [place] [address] Primary Insurance:[facility] Hospitaly Number: Effective Date:2414-14-92Ecck Name:MED [address] [address], [place] [address]FH: Lisa Soriano: [id number] [place] [address] [facility] 12/16/2023 Secondary Insurance:[facility] HospitalPoly Number: Effective Date:0827-80-38Jxiz Name:COMP [address] [address], [place] [address]JM: Lisa Soriano: [id number] [place] [address] [facility] 12/02/2023 Lisa Soriano: [place] [address] Primary Insurance:[facility] Number: Effective Date:6496-57-49Igsq Name:MEDP [address] [address] [address]LU: Lisa Soriano: [id number] [place] [address] [facility] 12/02/2023 Secondary Insurance:[facility] HospitalPolicy Number: Effective Date:6552-84-13Yafp Name:NITISH [address] [address], [place] [address]LO: Lisa Soriano: [id number] [place] [address] [facility] 11/18/2023 Lisa Soriano: [place] [address] Primary Insurance:[facility] HospitalPolicy Number: Effective Date:8979-98-63Fack Name:MED [address] [address], [place] [address]PK: Lisa Soriano: [id number] [place] [address] [facility] 11/18/2023 Secondary Insurance:[facility] HealthcarePolicy Number: Effective Date:1621-09-42Hfzl Name:NITISH [address] [address], [place] [address]NW: Lisa Soriano: [id number] [place] [address] [facility]
--- OUTSIDE RECORDS SUMMARY | 2024-11-03 07:24 | XMS_ITS | Encounter Summary ---
Author Organization [facility] Address [address] [place] [address] Care Team Providers Care Esthetician And Manager Medical Spa Name Role Phone Theron Lora DO Primary Care Provider [phone] Source Comments In the event this information is protected by the Federal Confidentiality of Alcohol and Drug AbusePatient Records regulations: The Federal rules restrict any use of the information to criminally investigate or prosecute any alcohol or drug abuse patient.[facility] Encounter Details Date Type Department Care Team (Latest Contact Info) Description 03/24/2019 H&P External-NonCCF Provider, External, PA-C Do not enter address information under generic External Provider. Social History Tobacco Use Types Packs/Day Years Used Date Smoking Tobacco: Never Assessed Sex and Gender Information Value Date Recorded Sex Assigned at Not on file Legal Sex Male 2:19 PM EST Gender Identity Not on file Sexual Orientation Not on file documented as of this encounter Plan of Treatment Not on file documented as of this encounter Visit Diagnoses Not on filedocumented in this encounter Care Teams Esthetician And Manager Medical Spa Relationship Specialty Start Date End Date Theron Loar DO [address] [place] [address] PCP - General Internal Medicine 03/18/19 documented as of this encounter
--- OUTSIDE RECORDS SUMMARY | 2024-11-03 07:24 | XMS_ITS | Encounter Summary ---
Author Organization [facility] Address [address] [facility] [address] Care Team Providers Care Dispatcher Service Name Role Phone Theron Lora DO Primary Care Provider [phone] Encounter Details Date Type Department Care Team (Late st Contact Info) Description 2022 Abstract [facility] [address] [place] [address] Ihsan Bradshaw, UPPER LINING CEMENTER [address] [place], [place] [id number] Social History Tobacco Use Types Packs/Day Years [...] on filedocumented in this encounter Care Teams Dispatcher Service Relationship Specialty Start Date End Date Theron Lora DO PCP - General Internal Medicine 10/16/22 documented as of this encounter
--- OUTSIDE RECORDS SUMMARY | 2024-11-03 07:24 | XMS_ITS | Clinical Summary ---
Author Organization [facility] Address [address] [place] [address] Care Team Providers Care Golf Course Assistant Name Role Phone Theron Lora Primary Care Provider [phone] Allergies No known active allergies Medications pioglitazone [...] of Treatment Not on [place] [address] [facility] Care Teams Golf Course Assistant Relationship Specialty Start Date End Date Theron Lora DO PCP - General Internal Medicine 10/16/22
--- OUTSIDE RECORDS SUMMARY | 2024-11-03 07:24 | XMS_ITS | Clinical Summary ---
Author Organization [facility] Address [address] [place], [place] [id number] Care Team Providers Care Medical Videographer Name Role Phone Theron Lora DO Primary Care Provider [phone] Allergies No known active allergies Medications traMADol [...] N ot on file 04/05/2020 Data from: [email or web address] Last address used for calculation Not [...] 2023 Advance Directive Discussion 04/29/2024 Influenza Vaccine (#1) 2024 RSV Vaccine (1 - 1-dose 75+ [...] PANEL BL (04/02/2019 12:40 PM EST) Pathologist [facility] Hep B Core Ab, Total Negative Negative 04/03/2019 10:45 AM EST [facility] Hep C Antibody IA Negative Negative 04/03/2019 10:46 AM EST [facility] HBsAg Negative Negative 04/03/2019 10:45 AM EST [facility] Hep B Surface Ab, Qual Negative Negative 04/03/2019 10:45 AM [facility] Comment:NEGATIVE Blood specimen (specimen) BLOOD SPECIMEN / Unknown 04/02/2019 12:40 PM EST 04/02/2019 12:42 PM EST us Francis Hebert DO LABORATORY Final Res ult [facility] [address] [place] [id number] [facility] [address] [place] [address] * (ABNORMAL) COMP METABOLIC PANEL (04/02/2019 12:40 PM EST) [facility] Protein, Total 7.4 6.3 - 8.0 g/dL 04/02/2019 1:[address] [facility] Albumin 4.4 3.9 - 4.9 g/dL 04/02/2019 1:[address] [facility] Calcium 9.6 8.5 - 10.2 mg/dL 04/02/2019 1:12 PM EST [facility] Bilirubin, Total 0.6 0.2 - 1.3 mg/dL 04/02/2019 1:12 PM EST [facility] Alkaline Phosphatase 102 38 - 113 U/L 04/02/2019 1:12 PM EST [facility] AST 31 14 - 40 U/L 04/02/2019 1:12 PM [facility] Glucose 257(H) 74 - 99 mg/dL 04/02/2019 1:12 PM [facility] Comment: The [place] Diabetes Association (ADA) provides guidance for cutoff [...] Standards of Medical Care in Diabetes 2016, [place] [employer]. Diabetes Care. 2016.39(Suppl 1). BUN 19 9 - 24 mg/dL 04/02/2019 1:12 PM [facility] Creatinine 0.94 0.73 - 1.22 mg/dL 04/02/2019 1:12 PM [facility] Sodium 135(L) 136 - 144 mmol/L 04/02/2019 1:12 PM [facility] Potassium 4.8 3.7 - 5.1 mmol/L 04/02/2019 1:12 PM [facility] Chloride 98 97 - 105 mmol/L 04/02/2019 1:12 PM [facility] CO2 24 22 - 30 mmol/L 04/02/2019 1:12 PM [facility] Anion Gap 13 9 - 18 mmol/L 04/02/2019 1:12 PM [facility] ALT 53 10 - 54 U/L 04/02/2019 1:12 PM [facility] eGFR- >60 04/02/2019 1:12 PM [facility] eGFR-All Other Races >60 . 04/02/2019 1:12 PM [facility] Comment: eGFR (Estimated GFR) Units of measure: [...] Francis Hebert DO LABORATORY Final Res ult [facility] [place] [address] [place] [address] [facility] [address] [place] [address] from Last 3 Months or Most Recently Relevant to Health Maintenance [place] [address] [facility] Care Teams Medical Videographer Relationship Specialty Start Date End Date Theron Lora DO [address] [place] [address] PCP - General Internal Medicine 03/18/19
[2024-11-03 07:41] LABS: Hematocrit 38.3 % (42.0-54.0); Hemoglobin 12.3 g/dL (14.0-18.0); Immature Granulocytes Abs Auto 0.00 10^3/uL (0.00-0.03); Immature Granulocytes Pct Auto 0.0 % (0.0-0.5); Lymphocytes Absolute Auto 0.8 10^3/uL (1.2-3.8); Mean Corpuscular HGB Conc 32.1 g/dL (29.9-35.2); Mean Corpuscular Hemoglobin 28.9 pg (25.9-34.0); Mean Corpuscular Volume 89.9 fL (80.0-94.0); Platelet Count 181 10^3/uL (150-450); Red Blood Count 4.26 10^6/uL (4.70-6.10); White Blood Count 2.5 10^3/uL (4.0-11.0)
[2024-11-03 08:03] LABS: Microalbum Creatinine Ratio Ur 16.6 mg/g (0.0-29.9)
[2024-11-03 08:11] LABS: Alanine Aminotransferase 44 U/L (16-63); Albumin Globulin Ratio 1.1; Albumin Level 3.7 g/dL (3.4-5.0); Alkaline Phosphatase 77 U/L (46-116); Anion Gap 13.8; Aspartate Amino Transferase 30 U/L (15-37); Blood Urea Nitrogen 21.0 mg/dL (7.0-18.0); Calcium 9.1 mg/dL (8.5-10.1); Carbon Dioxide 28.4 mmol/L (21.0-32.0); Chloride 107 mmol/L (98-107); Cholesterol 105 mg/dL (<=200); Estimated GFR (African America >60 (>=60 mL/min/1.73m^2); Estimated GFR (Non-African Ame >60 (>=60 mL/min/1.73m^2); Globulin 3.3 g/dL; Glucose 116 mg/dL (74-106); HDL Cholesterol 43 mg/dL (40-60); Potassium 4.2 mmol/L (3.5-5.1); Sodium 145 mmol/L (136-145); Total Protein 7.0 g/dL (6.4-8.2); Triglycerides 127 mg/dL (<=150); VLDL CHOLESTEROL 25.4 mg/dL
== END 2024-11-03 07:19 | disposition home or self-care (01) ==
LOC: LAB 07:22
PROVIDERS: PCP Internal Medicine; Visit Provider Internal Medicine
DX: E78.00 Pure hypercholesterolemia, unspecified (principal); E11.65 Type 2 diabetes mellitus with hyperglycemia; Z79.4 Long term (current) use of insulin; I10 Essential (primary) hypertension; I25.10 Atherosclerotic heart disease of native coronary artery without angina pectoris
CPT/HCPCS: 36415; 80053; 80061; 82043; 82570; 83036; 85025; G0103

== ENCOUNTER 2024-11-25 13:57 | Outpatient (OUT) | payer MEDICARE, OTHER, SELFPAY ==
--- NOTE | 2024-11-25 14:31 | PM.CN ---
Consult Note: HPI Data of Consult Patient: known to practice within the last 3 years Consult date: 11/25/24 Requesting Physician: Lisa Barcenas NP Primary Care Provider: Theron Lora, Consult Narrative Reason for consult: low back pain and BLE pain/weakness Narrative: 73yom who presents for assessment. imaging reviewed, which is significant for moderate to severe spondylosis and stenosis at l4-5 and l5-s1. continues in provider directed home exercises, without lasting benefit. uses tylenol as needed as well as baclofen 10mg BID PRN. denies adverse med side effects. previous bilateral l4-5 TFESI and L5-S1 TFESI providing >50% improvement greater than 3 months. underwent bilateral L4-5 L5-S1 facet RFA 04/27/24 with benefit. cc:: CC: Lisa Barcenas NP Review of Systems ROS Status of ROS 10 or more systems reviewed and unremarkable except as noted in history and below Musculoskeletal Reports: back pain and extremity pain PFSH PFSH Medical History (Updated 03/18/24 @ 09:27 by Lisa Barcenas NP) Lymphocytopenia ?D72.810 - Lymphocytopenia (ICD-10) Lumbar spondylolysis ?M43.06 - Spondylolysis, lumbar region (ICD-10) History of nephrolithiasis ?Z87.442 - Personal history of urinary calculi (ICD-10) Epidermal cyst of neck ?L72.0 - Epidermal cyst (ICD-10) Chronic prostatitis ?N41.1 - Chronic prostatitis (ICD-10) BPH with urinary obstruction ?N40.1 - Benign prostatic hyperplasia with lower urinary tract symptoms (ICD-10) ?N13.8 - Other obstructive and reflux uropathy (ICD-10) Anemia ?D64.9 - Anemia, unspecified (ICD-10) Coronary artery disease ?I25.10 - Atherosclerotic heart disease of [place] coronary artery without angina pectoris (ICD-10) Osteoarthritis ?M19.90 - Unspecified osteoarthritis, unspecified site (ICD-10) Acid reflux ?K21.9 - Gastro-esophageal reflux disease without esophagitis (ICD-10) Diabetes ?E11.9 - Type 2 diabetes mellitus without complications (ICD-10) High cholesterol ?E78.00 - Pure hypercholesterolemia, unspecified (ICD-10) HTN (hypertension) ?I10 - Essential (primary) hypertension (ICD-10) Myocardial infarct ?I21.9 - Acute myocardial infarction, unspecified (ICD-10) Surgical History History of arthroscopy of knee ?Z98.890 - Other specified postprocedural states (ICD-10) History of cardiac catheterization ?Z98.890 - Other specified postprocedural states (ICD-10) History of prostate biopsy ?Z98.890 - Other specified postprocedural states (ICD-10) History of transurethral resection of prostate ?Z98.890 - Other specified postprocedural states (ICD-10) ?Z90.79 - Acquired absence of other genital organ(s) (ICD-10) History of colonoscopy ?Z98.890 - Other specified postprocedural states (ICD-10) History of cystoscopy ?Z98.890 - Other specified postprocedural states (ICD-10) History of heart artery stent ?Z95.5 - Presence of coronary angioplasty implant and graft (ICD-10) Family History Other Family history of hypertension Heart disease Social History Within the past year, how often did you have a drink containing alcohol: monthly or less Smoking status: Former smoker Non-prescribed substance use: denies use 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 Highest level of school completed/degree received: some college, no degree Meds Home Medications and Allergies Home Medications ?Medication ?Instructions ?Recorded ?Confirmed ?Type aspirin 81 mg capsule 81 mg PO DAILY 11/18/23 04/13/24 History atenolol 25 mg tablet 25 mg PO Q24H 11/18/23 04/13/24 History atorvastatin 80 mg tablet 80 mg PO DAILY 11/18/23 04/13/24 History clopidogrel 75 mg tablet 75 mg PO DAILY 11/18/23 04/13/24 History insulin glargine 100 unit/mL (3 50 unit subcut DAILY 11/18/23 04/13/24 History mL) subcutaneous pen (Lantus Solostar U-100 Insulin) pantoprazole 40 mg tablet,delayed 40 mg PO DAILY 07/22/24 12/16/24 History release pioglitazone 15 mg tablet 15 mg PO DAILY 11/18/23 04/13/24 History baclofen 10 mg tablet 10 mg PO TID 03/18/24 04/13/24 History Allergies Allergy/AdvReac Type Severity Reaction Status Date / Time metformin AdvReac Diarrhea Verified 04/13/24 08:40 Exam Constitutional Documenting provider has reviewed patient's vital signs: yes Common normals: no apparent distress, oriented x3, healthy appearing, alert and well nourished General appearance: cooperative HENMT Common normals: normocephalic, hearing grossly normal bilaterally and moist oral mucous membranes Head and scalp: normocephalic Eye Common normals: PERRL Pupil: PERRL Neck & C-Spine Common normals: full ROM General: normal visual inspection Chest Common normals: inspection of chest normal Respiratory Common normals: normal respiratory effort, no retractions and no use of accessory muscles Back & Pelvis Lumbar spine/lower back: straight leg raise positive right and straight leg raise positive left; ROM not limited, no pain with ROM and no lumbar spinal tenderness Other: decreased sensation to bilateral L5/S1 strength 4/5 increased pain/weakness to BLE with standing and walking improves with sitting and forward flexion Neuro Common normals: oriented x3 Sensorium/orientation: alert Psych Common normals: mental status grossly normal, thought process normal, cooperative, affect normal, speech normal and activity/motor behavior normal Speech: normal speech Thought process: normal thought process Results Additional Findings Additional findings: If on a controlled substance or opioids, I have checked an [place]AR[place] report on this patient and there are no aberrancies noted in the prescribing history.??If on a controlled substance or opioid a drug screen was completed and reviewed within the last year, and if there has not been a drug screen completed we ordered one today to monitor higher risk, state monitored pain medication use. As part of providing excellent, safe, comprehensive care, the following was completed at our patient's visit: 1. A medication reconciliation and review to ensure accurate knowledge of current/active medications, including asking our patients to inform us about any [id number] medications or herbal remedies/nutritional supplements/alternative remedies. 2. A review to specifically ensure our patients have had annual screening for screening for depression, screening for tobacco use, and screening for unhealthy alcohol use. For concerning screenings had a discussion with the patient, provided patient education, and recommended follow-up with primary care provider when appropriate. If patient noted with a risk of falling, they received education on strength, gait, and balance training to prevent future risk of falling. Assessment and Plan Assessment and Plan (1) Lumbar spondylosis: Assessment and Plan: significant improvement on facet mediated pain (2) Lumbar stenosis with neurogenic claudication: (3) Myalgia: Plan repeat bilateral L5-S1 TFESI under fluoroscopy, prior injection provided at least 50% improvement in pain and functional ability greater than 3 months continue baclofen 10mg BID PRN pain/spasms continue HEP as tolerated f/u 2 weeks after injection
--- OUTSIDE RECORDS SUMMARY | 2024-11-25 14:32 | XMS_ITS | CCD ---
Author Organization [facility] Care Team Providers Care Railroad Inspector Name Role Phone THERON MENDOZA Unavailable Unavailable TINO GUNDERSON Unavailable Unavailable MO SANCHEZ AM Unavailable Unavailable MO SANCHEZ AM Unavailable Unavailable ID Unavailable Unavailable UNKNOWN, PROVIDER Unavailable Unavailable UNKNOWN, PROVIDER Unavailable Unavailable UNKNOWN, PROVIDER Unavailable Unavailable MATT, THERON Unavailable Unavailable MATT, THERON Unavailable Unavailable PHYSICIAN, DEFAULT Unavailable Unavailable PHYSICIAN, DEFAULT Unavailable Unavailable THERON MENDOZA Unavailable Unavailable THERON MENDOZA Primary Care Physician [phone] MATT, DR CRUMP Primary Care Unavailable LIZABETH, DR OWUSU Admitting Unavailable ARGUETA, DR OWUSU Attending Unavailable ARGUETA, DR OWUSU Consulting Unavailable PARAS SOMMERS Consulting Unavailable BALL, DR CRUMP Attending Unavailable [...] Care Unavailable BALL, DR CRUMP Admitting Unavailable Theron Mendoza Unavailable Carmella NUÑEZ, Natali Luo Attending Unavailable Giedraitis , Andrius Valerio Attending Unavailable Gieditis , Andrius Vytlisa Attending Unavailable Giedraitis , Andrius Vytlisa Attending Unavailable Giedraitis , Andrius Valerio Attending Unavailable Carmella NUÑEZ, Andrius Valerio Attending Unavailable Gijojo NUÑEZ, Andbishnu Luo Attending Unavailable Tom ARGUETA Attending Unavailable NILChadd Frost Attending Unavailable NILLChadd Attending Unavailable NILChadd Frost Attending Unavailable Tom ARGUETA Attending Unavailable Tom ARGUETA Attending Unavailable Ball Theron BARBER Primary Care Provider Dominga Presley PA-C Attending Provider Theron Mendoza DO Attending Provider Allergies Allergy Classification Reported Allergen(s) Allergy Type Date of Onset Reaction(s) Facility (1 source) 85135,00; Translations: [64684,00] Propensity to adverse reactions (disorder) 9 [facility] Repository (13 sources) metFORMIN; Translations: [metformin] Drug Allergy Diarrhea (finding) [facility] (3 sources) patient allergy list reviewed by nurse or physicia Propensity to adverse reactions Comment:Done Thirsty Other (1 source) No Known Medication Allergies; Translations: [No Known Medication Allergies] Propensity to adverse reactions (disorder) [facility] Repository NEGATED: Highlighted row has been ruled out! (1 source) Drug allergy [facility] Medications Current Medications Medication Drug Class(es) Dates Sig (Normalized) Sig (Original) aspirin 81 mg chewable tablet (14 sources) Platelet Aggregation Inhibitor, Nonsteroidal Anti-inflammatory Drug Start: 11-05-2023 take 1 tablet by mouth once daily Aspirin 81 mg tablet,chewable Active 1 TAB PO Daily November 05, 2023 12:00am FreeTextSi tablet Orally Once a day; Note: Source Status: Continue; Provider: Matt Crump ( ) Complies with drug therapy Start: 12-15-2018 take 1 tablet by mouth once da colette aspirin 81 mg oral tablet 81 mg = 1 tab(s), Oral, Daily Start Date: 12/15/18 Status: Ordered Repeat number: 1 take 1 tablet by luis felipe th every twenty-four hours Aspirin 81 MG 1 tablet Orally Once a day Active Aspirin Active atenolol 25 mg oral tablet (17 sources) beta-Adrenergic Cesar Start: 09-16-2023 End: 07-28-2024 Atenolol 25 mg tablet Active 0 .ROUTE .COMPLEX 90 July 28, 2024 8:23pm TAKE 1 TABLET DAILY Complies with drug therapy Start: 12-15-2018 End: 09-16-2023 take 1 tablet by mouth once daily Atenolol 25 mg tablet Discontinued 25 MG PO Daily September 16, 2023 12:00am September 16, 2023 12:45pm atorvastatin 80 mg oral tablet (15 sources) HMG-CoA Reductase Inhibitor Start: 06-06-2024 Atorvastatin 80 mg tablet Active 0 .ROUTE .COMPLEX June 06, 2024 8:57am TAKE 1 TABLET DAILY IN THE EVENING Complies with drug therapy Start: 12-16-2018 End: 06-06-2024 take 1 tablet by mouth once daily in the evening Atorvastatin 80 mg tablet Discontinued 80 MG PO Every evening November 05, 2023 12:00am June 06, 2024 8:57am baclofen 10 mg oral tablet (1 source) gamma-Aminobutyric Acid-ergic Agonist Start: 04-06-2024 take 1 tablet by mouth once daily Baclofen 10 mg tablet Active 10 MG PO Daily April 06, 2024 1:00am Complies with drug therapy baclofen 10 MG Oral Granules (1 source) Start: 10-01-2024 baclofen 10 mg oral granule Refills(s) 0 Start Date: 10/01/24 Status: Ordered Repeat number: 1 celecoxib 200 mg oral capsule (10 sources) Nonsteroidal Anti-inflammatory Drug Start: 11-05-2023 take 1 capsule by mouth once daily Celecoxib (Celebrex) 200 mg capsule Active 200 MG PO Daily November 05, 2023 12:00am Complies with drug therapy CeleBREX Not-Jamar ing CeleBREX Active clopidogrel 75 mg oral tablet (14 sources) P2Y12 Platelet Inhibitor Start: 11-05-2024 take 1 tablet by mouth once daily Clopidogrel 75 mg tablet Active 75 MG PO Daily November 05, 2024 10:46am Complies with drug therapy Start: 11-06-2023 End: 11-05-2024 Clopidogrel 75 mg tablet Discontinued 0 .ROUTE .COMPLEX November 06, 2023 6:17pm November 05, 2024 10:47am TAKE 1 TABLET DAILY Start: 12-16-2018 End: 11-06-2023 take 1 tablet by mouth once daily Clopidogrel 75 mg tablet Discontinued 75 MG PO Daily November 05, 2023 12:00am November 06, 2023 6:17pm glimepiride 1 mg oral tablet (1 source) Sulfonylurea Start: 03-21-2020 take 2 tablets by mouth once daily glimepiride 1 mg Tab 2 mg = 2 tab(s), Oral, Daily, Refills(s) 0 Start Date: 03/21/20 Status: Ordered 3 ml insulin glargine 100 unt/ml pen injector (9 sources) Insulin Analog Start: 11-05-2023 End: 05-02-2024 Insulin Glargine (Lantus Solostar U-100 Insulin) 100 unit/mL (3 mL) insulin pen Active 0 .ROUTE .COMPLEX May 02, 2024 3:53pm INJECT 50 UNITS UNDER THE SKIN DAILY Complies with drug therapy Lantus SoloStar 100 UNIT/ML INJECT 50 UNITS UNDER THE SKIN DAILY Active Lantus Solostar Pen (4 sources) Start: 12-15-2018 inject 50 [IU] by subcutaneous injection once daily Lantus Solostar Pen 50 unit(s), SubCutaneous, Daily Start Date: 12/15/18 Status: Ordered Repeat number: 1 Start: 12-15-2018 inject 50 [IU] by spain bcutaneous injection once daily Lantus Solostar Pen 50 unit(s), SubCutaneous, Daily Start Date: 12/15/18 Status: Ordered Magnesium (1 source) Start: 04-06-2024 take 2 tablets by mouth once daily Magnesium 200 mg tablet Active 400 MG PO Daily April 06, 2024 1:00am Complies with drug therapy pantoprazole 40 mg delayed release oral tablet (17 sources) Proton Pump Inhibitor Start: 07-03-2023 End: 07-21-2024 Pantoprazole 40 mg tablet,delayed release (DR/EC) Active 0 .ROUTE .COMPLEX July 21, 2024 12:03pm TAKE 1 TABLET DAILY ON AN EMPTY STOMACH FOLLOWED IN 30 MINUTES BY BREAKFAST Complies with drug therapy Start: 07-03-2023 Pantoprazole A ctive 0 .ROUTE .COMPLEX July 03, 2023 10:55pm TAKE 1 TABLET DAILY ON AN EMPTY STOMACH FOLLOWED IN 30 MINUTES BY BREAKFAST Start: 12-16-2018 End: 07-03-2023 take 1 tablet by mouth once daily Pantoprazole 40 mg tablet,delayed release (DR/EC) Discontinued 40 MG PO Daily July 03, 2023 1:00am July 03, 2023 10:55pm pioglitazone 15 mg oral tablet (13 sources) Peroxisome Proliferator Receptor alpha Agonist, Peroxisome Proliferator Receptor gamma Agonist, Thiazolidinedione Start: 02-26-2024 Pioglitazone 15 mg tablet Active 0 .ROUTE .COMPLEX 90 February 26, 2024 8:43am TAKE 1 TABLET DAILY Complies with drug therapy Start: 04-10-2021 End: 02-26-2024 take 1 tablet by mouth once daily Pioglitazone 15 mg tablet Discontinued 15 MG PO Daily November 05, 2023 12:00am February 26, 2024 8:43am Start: 04-10-2021 take 1 mg by mouth [...] # 2 cap(s), Refills(s) 0, Pharmacy: [facility]/pharmacy #[id number], 177, cm, 11/20/21 12:47:00 EDT, [...] except food] Episodic Calculus of urinary tract (7 sources) History of calculus of kidney; Translations: [...] disease (20 sources) Atherosclerotic heart disease of [place] coronary artery with unstable angina pectoris; Translations: [Atherosclerotic heart disease of [place] coronary artery without angina pectoris] Onset: 08-25-2013 03-20-2019 Chronic Comment on above: LHC: PCI/stent RCA, LAD - 2006, PCI/stent RCA - 2016,PCI/stent OM Lcx - 2015,PCI/stent RCA x 2 - 2017PCI/stent LAD - 2017 Deficiency and other anemia (10 sources) Anemia; Translations: [Anemia, unspecified] 03-21-2020 Episodic Deficiency and other anemia (6 sources) Iron deficiency anemia; Translations: [Iron deficiency anemia, unspecified] Episodic Deficiency and other anemia (2 sources) Anemia, unspecified; Translations: [Anemia, unspecified] Episodic Diabetes mellitus with complications (20 sources) Type 2 diabetes mellitus with hyperglycemia; Translations: [Type 2 diabetes mellitus with diabetic chronic kidney disease] Onset: 06-26-2016 Chronic Diabetes mellitus without complication (15 sources) Type 2 diabetes mellitus without complications; Translations: [Type 2 diabetes mellitus] Onset: 08-25-2013 12-15-2018 Chronic Diabetes mellitus without complication (6 sources) Glycosuria; Translations: [Glycosuria] Onset: 10-01-2023 04-06-2019 Episodic Diseases of white blood cells (11 sources) Lymphocytopenia; Translations: [Lymphocytopenia] Onset: 11-30-2021 03-21-2020 Chronic Disorders of lipid metabolism (20 sources) Hyperlipidemia, unspecified; Translations: [Hyperlipidemia] Onset: 08-25-2013 12-15-2018 Chronic Esophageal disorders (17 sources) Gastro-esophageal reflux disease without esophagitis; Translations: [Gastroesophageal reflux disease] Onset: 08-25-2013 Resolved: 12-06-2023 03-20-2019 Chronic Essential hypertension (20 sources) Essential (primary) hypertension; Translations: [Benign hypertension] Onset: 08-25-2013 12-15-2018 Chronic Genitourinary symptoms and ill-defined conditions (20 sources) Blood in urine; Translations: [Gross hematuria] Onset: 11-20-2021 Episodic Hyperplasia of prostate (20 sources) Benign prostatic hypertrophy with outflow obstruction; Translations: [Benign prostatic hyperplasia with lower urinary tract symptoms] Onset: 08-25-2013 Chronic Immunizations and screening for infectious disease (3 sources) Vaccination given; Translations: [Encounter for immunization] Episodic Inflammatory conditions of male genital organs (4 sources) Chronic prostatitis 03-20-2019 Chronic Joint disorders and dislocations; trauma-related (9 sources) Derangement of right knee; Translations: [Unspecified internal derangement of right knee] Chronic Osteoarthritis (3 sources) Osteoarthritis; Translations: [Polyosteoarthritis, unspecified] Onset: 09-18-2013 Chronic Other aftercare (6 sources) FDC (current) use of insulin; Translations: [FDC (current) use of antithrombotics/antip latelets] Onset: 04-15-2017 Episodic Other aftercare (8 sources) Long-term current use of insulin; Translations: [intermediate card tender (current) use of insulin] Episodic Other aftercare (1 source) Other terminal makeup operator (current) drug therapy Episodic Other gastrointestinal disorders (1 source) Abnormal feces; Translations: [Other fecal abnormalities] Onset: 12-18-2023 Episodic Other gastrointestinal disorders (1 source) Stool DNA-based colorectal cancer screening positive; Translations: [Other fecal abnormalities] 11-25-2023 Episodic Other injuries and conditions due to external causes (3 sources) History of fall; Translations: [History of falling] Episodic Other liver diseases (6 sources) Abnormal liver function; Translations: [Abnormal liver function study] Chronic Other lower respiratory disease (1 source) Shortness of breath Episodic Other male genital disorders (4 sources) Pain in testicle 03-20-2019 Episodic Other male genital disorders (4 sources) Testicular mass 03-20-2019 Episodic Other nervous system disorders (2 sources) Chronic pain; Translations: [Other chronic pain] Chronic Other nervous system disorders (1 source) Other chronic pain Chronic Other non-traumatic joint disorders (1 source) Pain in right knee Episodic Other nutritional; endocrine; and metabolic disorders (3 sources) Obesity; Translations: [Obesity, unspecified] Onset: 08-25-2013 Chronic Other nutritional; endocrine; and metabolic disorders (2 sources) Overweight 12-18-2023 Episodic Other nutritional; endocrine; and metabolic disorders (2 sources) Overweight in adulthood with body mass index of 25 or more but less than 30 12-18-2023 Episodic Other nutritional; endocrine; and metabolic disorders (1 source) Weight decreased; Translations: [Abnormal weight loss] 04-06-2024 Episodic Other screening for suspected conditions (not mental disorders or infectious disease) (7 sources) Encounter for screening for malignant neoplasm of prostate; Translations: [Patient encounter status] Episodic Comment on above: PSA: 1.9 - 08/2023, 2 .25 - 08/2024 Other skin disorders (4 sources) Actinic keratosis 12-16-2018 Episodic Other skin disorders (4 sources) Epidermoid cyst of skin 03-22-2020 Episodic Other skin disorders (4 sources) Epidermoid cyst of skin of neck 12-16-2018 Episodic Other skin disorders (4 sources) Senile hyperkeratosis 01-30-2019 Episodic Other skin disorders (6 sources) Sebaceous cyst; Translations: [Sebaceous cyst] Onset: 11-21-2018 Episodic Residual codes; unclassified (2 sources) H/O: Disorder; Translations: [Personal history of other specified conditions] Onset: 10-01-2023 Episodic Spondylosis; intervertebral disc disorders; other back problems (3 sources) Lumbar spondylosis; Translations: [Spondylosis without myelopathy or radiculopathy, lumbar region] Onset: 11-18-2023 12-06-2023 Chronic Spondylosis; intervertebral disc disorders; other back problems (11 sources) Sciatica; Translations: [Lumbago with sciatica, left side] Onset: 09-18-2013 11-05-2023 Episodic Substance-related disorders (3 sources) Tobacco user; Translations: [Nicotine dependence, cigarettes, in remission] Chronic Unclassified (1 source) Stenosis of coronary artery stent, initial encounter; Translations: [STENOSIS OF CORONARY ARTERY STENT, INITIAL ENCOUNTER] Onset: 04-15-2017 Unclassified (2 sources) Unknown / UNK(Unknown) Onset: 04-15-2017 Unclassified (4 sources) Drug therapy finding 04-06-2019 Unclassified (4 sources) Finding of sensation of bladder 03-20-2019 [...] Test Name Value Interpretation Reference Range Facility Basophils Auto (Bld) [#/Vol] Ordered By: Theron Mendoza on 11-03-2024 Basophils (Bld) [#/Vol] 0.0 10 3/uL 0.0-0.1 [facility] Basophils/100 WBC Auto (Bld) Ordered By: Theron Mendoza on 11-03-2024 Basophils/100 WBC (Bld) 0.8 % 0.2-2.0 [facility] Cholesterol in LDL Calc [Mas s/Vol]Ordered By: Theron Mendoza on 11-03-2024 Cholesterol in LDL [Mass/Vol] 36.6 mg/dL [facility] Comment on above: <100 mg/dl [id number] 0-129 mg/dl NEAR OR ABOVE [id number] mg/dl BORDERLINE [id number] mg/dl HIGH>190 mg/dl VERY HIGH Cholesterol in VLDL Calc [Ma ss/Vol]Ordered By: Theron Mendoza on 11-03-2024 Cholesterol in VLDL [Mass/Vol] 25.4 mg/dL [facility] Eosinophils/100 WBC Auto (Bl d)Ordered By: Theron Mendoza on 11-03-2024 Eosinophils/100 WBC (Bld) 1.6 % 0.9-7.0 [facility] Erythrocyte distribution wid th Auto (RBC) [Ratio]Ordered By: Theron Mendoza on 11-03-2024 Erythrocyte distribution width (RBC) [Ratio] 14.3 % 11.0-15.0 [facility] Estimated glomerular filtrat ion rate (GFR) non- AmericanOrdered By: Theron Mendoza on 11-03-2024 GFR/1.73 sq M.predicted among non-blacks MDRD (S/P/Bld) [Vol rate/Area] mL/min/{1.73_m2} >=60 mL/min/1.7 3m 2 [facility] Globulin Calc (S) [Mass/Vol] Ordered By: Theron Mendoza on 11-03-2024 Globulin (S) [Mass/Vol] 3.3 g/dL [facility] Glucose mean value [Mass/vol ume] in Blood Estimated from glycated hemoglobinOrdered By: Theron Mendoza on 11-03-2024 Average glucose Estimated from glycated hemoglobin (Bld) [Mass/Vol] 146 mg/dL [facility] Hematocrit Auto (Bld) [Volum e fraction]Ordered By: Theron Mendoza on 11-03-2024 Hematocrit (Bld) [Volume fraction] 38.3 % Low 42.0-54.0 [facility] Hemoglobin A1c percentageOrd ered By: Theron Mendoza on 11-03-2024 HbA1c (Bld) [Mass fraction] 6.7 % High 4.5-6.2 [facility] Comment on above: ADA RECOMMENDED LIMI T 4.0 - 6.0ADA THERAPEUTIC TARGET < 7.0ACTION SUGGESTED> 7.0 Hemoglobin [Mass/volume] in BloodOrdered By: Theron Mendoza on 11-03-2024 Hemoglobin (Bld) [Mass/Vol] 12.3 g/dL Low 14.0-18.0 [facility] Laboratory - Chemistry and C hemistry - challengeOrdered By: Theron Mendoza on 11-03-2024 Albumin [Mass/Vol] 3.7 g/dL 3.4-5.0 [facility] ALP [Catalytic activity/Vol] 77 U/L 46-116 [facility] ALT [Catalytic activity/Vol] 44 U/L 16-63 [facility] AST [Catalytic activity/Vol] 30 U/L 15-37 [facility] Bilirubin [Mass/Vol] 0.8 mg/dL 0.2-1.0 [facility] Calcium [Mass/Vol] 9.1 mg/dL 8.5-10.1 [facility] Chloride [Moles/Vol] 107 mmol/L 98-107 [facility] Cholesterol [Mass/Vol] 105 mg/dL <=200 [facility] Cholesterol in HDL [Mass/Vol] 43 mg/dL 40-60 [facility] Comment on above: > or =60 mg/dl - LOW CARDIOVASCULAR RISK<40 mg/dl - HIGH CARDIOVASCULAR RISK CO2 [Moles/Vol] 28.4 mmol/L 21.0-32.0 [facility] Creatinine [Mass/Vol] 0.86 mg/dL 0.70-1.30 [facility] GFR/1.73 sq M.predicted MDRD (S/P/Bld) [Vol rate/Area] mL/min/{1.73_m2} >=60 mL/min/1.7 3m 2 [facility] Glucose [Mass/Vol] 116 mg/dL High 74-106 [facility] Potassium [Moles/Vol] 4.2 mmol/L 3.5-5.1 [facility] Protein [Mass/Vol] 7.0 g/dL 6.4-8.2 [facility] Sodium [Moles/Vol] 145 mmol/L 136-145 [facility] Triglyceride [Mass/Vol] 127 mg/dL <=150 [facility] Urea nitrogen [Mass/Vol] 21.0 mg/dL High 7.0-18.0 [facility] Urea nitrogen/Creatinine [Mass ratio] 24.4 mg/mg [facility] Laboratory - Hematology and Cell countsOrdered By: Theron Mendoza on 11-03-2024 Immature granulocytes/100 WBC (Bld) 0.0 % 0.0-0.5 [facility] Leukocytes [#/volume] correc rissa for nucleated erythrocytes in Blood by Automated counOrdered By: Theron Mendoza on 11-03-2024 WBC corrected for nucl RBC Auto (Bld) [#/Vol] 2.5 10 3/uL Low 4.0-11.0 [facility] Lymphocytes Auto (Bld) [#/Vo l]Ordered By: Theron Mendoza on 11-03-2024 Lymphocytes (Bld) [#/Vol] 0.8 10 3/uL Low 1.2-3.8 [facility] Lymphocytes/100 WBC Auto (Bl d)Ordered By: Theron Mendoza on 11-03-2024 Lymphocytes/100 WBC (Bld) 33.1 % 20.5-60.0 [facility] MCH Auto (RBC) [Entitic mass ]Ordered By: Theron Mendoza on 11-03-2024 MCH (RBC) [Entitic mass] 28.9 pg 25.9-34.0 [facility] MCHC Auto (RBC) [Mass/Vol]Or dered By: Theron Mendoza on 11-03-2024 MCHC (RBC) [Mass/Vol] 32.1 g/dL 29.9-35.2 [facility] MCV Auto (RBC) [Entitic vol] Ordered By: Theron Mendoza on 11-03-2024 MCV (RBC) [Entitic vol] 89.9 fL 80.0-94.0 [facility] Microalbumin [Mass/volume] i n UrineOrdered By: Theron Mendoza on 11-03-2024 Albumin DL <= 20 mg/L (U) [Mass/Vol] 3.0 mg/dL <=30.0 [facility] Monocytes Auto (Bld) [#/Vol] Ordered By: Theron Mendoza on 11-03-2024 Monocytes (Bld) [#/Vol] 0.3 10 3/uL 0.3-0.8 [facility] Monocytes/100 WBC Auto (Bld) Ordered By: Theron Mendoza on 11-03-2024 Monocytes/100 WBC (Bld) 10.2 % 1.7-12.0 [facility] Neutrophils Auto (Bld) [#/Vo l]Ordered By: Theron Mendoza on 11-03-2024 Neutrophils (Bld) [#/Vol] 1.4 10 3/uL 1.4-6.5 [facility] Neutrophils/100 WBC Auto (Bl d)Ordered By: Theron Mendoza on 11-03-2024 Neutrophils/100 WBC (Bld) 54.3 % 43.0-75.0 [facility] No Panel InformationOrdered By: Theron Mendoza on 11-03-2024 Urine Random Creatinine 180.27 mg/dL 20.00-300. 00 [facility] Eosinophils # (Auto) 0.0 10 3/uL 0.0-0.7 [facility] Immature Granulocyte # (Auto) 0.00 10 3/uL 0.00-0.03 [facility] Platelet mean volume Auto (B ld) [Entitic vol]Ordered By: Theron Mendoza on 11-03-2024 Platelet mean volume (Bld) [Entitic vol] 10.6 fL 9.5-13.5 [facility] Platelets Auto (Bld) [#/Vol] Ordered By: Theron Mendoza on 11-03-2024 Platelets (Bld) [#/Vol] 181 10 3/uL 150-450 [facility] RBC Auto (Bld) [#/Vol]Ordere d By: Theron Mendoza on 11-03-2024 RBC (Bld) [#/Vol] 4.26 10 6/uL Low 4.70-6.10 [facility] Serum or plasma albumin/glob ulin mass ratioOrdered By: Theron Mendoza on 11-03-2024 Albumin/Globulin [Mass ratio] 1.1 {ratio} [facility] Serum or plasma anion gap de terminationOrdered By: Theron Mendoza on 11-03-2024 Anion gap [Moles/Vol] 13.8 mmol/L [facility] Serum or plasma total choles terol/high density lipoprotein (HDL) cholesterol mass ratOrdered By: Theron Mendoza on 11-03-2024 Cholesterol.total/Cho lesterol in HDL [Mass ratio] 2.4 {ratio} [facility] Comment on above: 3.3 - 4.4 LOW RISK4. 4 - 7.1 AVERAGE RISK7.1 - 11.0 MODERATE RISK>11.0 HIGH RISK Urine microalbumin/creatinin e mass ratioOrdered By: Theron Mendoza on 11-03-2024 Albumin/Creatinine DL <= 20 mg/L (U) [Mass ratio] 16.6 mg/g 0.0-29.9 [facility] Comment on above: NO MICROALBUMINURIA 0-29 MG/GCLINICAL MICROALBUMINURIA 30-300 MG/GMACROALBUMINURIA >300 MG/G Ambulatory Visit Summaryon 0 10-02-2024 Ambulatory Visit Summary Ambulatory Visit Summary KIMBERLEEDEMETRIUSLISA :1950 Visit Date:10/02/2024 Ambulatory Visit Instructions Your Diagnosis BPH with urinary obstruction History of gross hematuria Your Care Team Attending Physician - LIZABETH NUÑEZ, Tom Coehn Primary Care Physician - THERON MENDOZA DO [...] with LIZABETH NUÑEZ, SANDRA Masters When: Where: [address] [place], [place] [id number]- Medications What How Much When Instructions Unchanged [...] enlarges toward the urethra and compresses it, the (more content not included)... Normal [facility] Urology Office/Clinic Noteon 10-02-2024 Urology Office/Clinic Note Urology Office/Clinic Note Chief Complaint 1 year [...] Contact Information LIZABETH NUÑEZ, Tom Cohen, URL [address] [place] [address]- Additional Instructions: 1 year w/ PSA Patient Education Benign Prostatic Hyperplasia IJennifer, personally scribed for Dr. Argueta on 10/02/2024 [...] Tobacco Use:. Cigarettes, Yes, 10/02/2024 Family History (more content not included)... Normal [facility] Comment on above: Result Comment: Elec tronically Signed By: Tom ARGUETA MD\.br\Date and Time Signed: 10/02/24 11:17 EDT\.br\Electronically Co-Signed By: Jennifer Orozco.br\Date and Time Co-Signed: 10/02/24 11:16 EDT No Panel Informationon 09-25 Prostate Specific Antigen Total 2.25 ng/mL <=4.00 [facility] Ambulatory Visit Summaryon 0 12-18-2023 Ambulatory Visit Summary Ambulatory Visit Summary LISA LUGO :1950 Visit Date:12/18/2023 Ambulatory Visit Instructions Your Care Team Attending Physician - ANGLE NUÑEZ, Chadd Cohen Primary Care Physician - MATT BARBER, THERON [...] NUÑEZ, Tom Cohen Where: [facility] [place] [address]- Medications What How Much When Instructions Unchanged [...] for choosing us for your care. Normal [facility] Cholesterol in LDL Calc [Mas s/Vol]on 11-05-2023 Cholesterol in LDL [Mass/Vol] 42.0 mg/dL [facility] Comment on above: <100 mg/dl [id number] 0-129 mg/dl NEAR OR ABOVE [id number] mg/dl BORDERLINE [id number] mg/dl HIGH>190 mg/dl VERY HIGH Cholesterol in VLDL Calc [Ma ss/Vol]on 11-05-2023 Cholesterol in VLDL [Mass/Vol] 35.6 mg/dL [facility] Estimated glomerular filtrat ion rate (GFR) non- Americanon 11-05-2023 GFR/1.73 sq M.predicted among non-blacks MDRD (S/P/Bld) [Vol rate/Area] mL/min/{1.73_m2} >=60 [facility] Globulin Calc (S) [Mass/Vol] on 11-05-2023 Globulin (S) [Mass/Vol] 3.3 g/dL [facility] Glucose mean value [Mass/vol ume] in Blood Estimated from glycated hemoglobinon 11-05-2023 Average glucose Estimated from glycated hemoglobin (Bld) [Mass/Vol] 143 mg/dL [facility] Laboratory - Chemistry and C hemistry - challengeon 11-05-2023 Albumin [Mass/Vol] 4.0 g/dL 3.4-5.0 [facility] ALP [Catalytic activity/Vol] 74 U/L 46-116 [facility] ALT [Catalytic activity/Vol] 48 U/L 16-63 [facility] AST [Catalytic activity/Vol] 34 U/L 15-37 [facility] Bilirubin [Mass/Vol] 0.9 mg/dL 0.2-1.0 [facility] Calcium [Mass/Vol] 8.6 mg/dL 8.5-10.1 [facility] Chloride [Moles/Vol] 103 mmol/L 98-107 [facility] Cholesterol [Mass/Vol] 119 mg/dL <=200 [facility] Cholesterol in HDL [Mass/Vol] 42 mg/dL 40-60 [facility] Comment on above: > or =60 mg/dl - LOW CARDIOVASCULAR RISK<40 mg/dl - HIGH CARDIOVASCULAR RISK CO2 [Moles/Vol] 28.3 mmol/L 21.0-32.0 [facility] Creatinine [Mass/Vol] 1.10 mg/dL 0.70-1.30 [facility] GFR/1.73 sq M.predicted MDRD (S/P/Bld) [Vol rate/Area] mL/min/{1.73_m2} >=60 [facility] Glucose [Mass/Vol] 139 mg/dL High 74-106 [facility] Potassium [Moles/Vol] 4.1 mmol/L 3.5-5.1 [facility] Protein [Mass/Vol] 7.3 g/dL 6.4-8.2 [facility] Sodium [Moles/Vol] 141 mmol/L 136-145 [facility] Triglyceride [Mass/Vol] 178 mg/dL High <=150 [facility] Urea nitrogen [Mass/Vol] 21.0 mg/dL High 7.0-18.0 [facility] Urea nitrogen/Creatinine [Mass ratio] 19.1 mg/mg [facility] Laboratory - Hematology and Cell countson 11-05-2023 HbA1c (Bld) [Mass fraction] 6.6 % High 4.5-6.2 [facility] Comment on above: ADA RECOMMENDED LIMI T 4.0 - 6.0ADA THERAPEUTIC TARGET < 7.0ACTION SUGGESTED> 7.0 Microalbumin [Mass/volume] i n Urineon 11-05-2023 Albumin DL <= 20 mg/L (U) [Mass/Vol] 3.4 mg/dL <=30.0 [facility] Serum or plasma albumin/glob ulin mass ratioon 11-05-2023 Albumin/Globulin [Mass ratio] 1.2 {ratio} [facility] Serum or plasma anion gap de terminationon 11-05-2023 Anion gap [Moles/Vol] 13.8 mmol/L [facility] Serum or plasma total choles terol/high density lipoprotein (HDL) cholesterol mass aquiles 11-05-2023 Cholesterol.total/Cho lesterol in HDL [Mass ratio] 2.8 {ratio} [facility] Comment on above: 3.3 - 4.4 LOW RISK4. 4 - 7.1 AVERAGE RISK7.1 - 11.0 MODERATE RISK>11.0 HIGH RISK No Panel Informationon 09-16 Free Prostate Specific Antigen 0.78 ng/mL N/A [facility] Comment on above: [facility] [employer] methodol [facility]gy. Prostate Specific Antigen Total 1.9 ng/mL 0.0-4.0 [facility] Comment on above: [facility] [employer] methodol ogy.According to the [place] [employer], Serum PSAshould decrease and remain [...] PSA/Total PSA [Mass fraction] 41.1 % . [facility] Comment on above: The table below list s the probability of prostate cancer formen with [...] for any other population of men.Performed at: [facility] ([facility])[address] [id number] Director: Guanakito Cota PhD, Phone: [phone] GLYCOHEMOGLOBIN A1Con 2021 ADA RECOMMENDATION SEE BELOW Normal [facility] Comment on above: Result Comment: ADA RECOMMENDED LIMIT 4.0 - 6.0 ADA THERAPEUTIC TARGET < 7.0 ACTION SUGGESTED > 7.0 Performed By: #### A 1C #### [facility] [address] [place] [address] Dr. Yara Chavez Glucose [Mass/Vol] 166 mg/dL Normal [facility] Comment on above: Performed By: #### A 1C #### [facility] [address] [address] [address] Yara Chavez HbA1c (Bld) [Mass fraction] 7.4 % Critically high 4.5-6.2 [facility] Comment on above: Performed By: #### A 1C #### [facility] [address] [place] [address] ABD/PELV W CONon [...] PARAS SOMMERS Date: 2021-11-26 02:01 Normal [facility] CBC AUTO DIFFon 11-24-2021 BASO # 0.0 103/ul Normal 0.0-0.1 [facility] Comment on above: Performed By: #### C BC #### [facility] [address] [address] [address] Yara Chavez Basophils/100 WBC (Bld) 0.7 % Normal 0.2-2.0 [facility] Comment on above: Performed By: #### C BC #### [facility] [address] [place] [address] Dr. Yara Chavez EO # 0.0 103/ul Normal 0.0-0.7 [facility] Comment on above: Performed By: #### C BC #### [facility] [address] [place] [address] Dr. Yara Chavez Eosinophils/100 WBC (Bld) 1.0 % Normal 0.9-7.0 [facility] Comment on above: Performed By: #### C BC #### [facility] [address] [place] [address] Dr. Yara Chavez Erythrocyte distribution width (RBC) [Ratio] 14.7 % Normal 11.0-15.0 [facility] Comment on above: Performed By: #### C BC #### [facility] [address] [place] [address] Dr. Yara Chavez Hematocrit (Bld) [Volume fraction] 38.7 % Critically low 42.0-54.0 [facility] Comment on above: Performed By: #### C BC #### [facility] [address] [place] [address] Dr. Yara Chavez Hemoglobin (Bld) [Mass/Vol] 12.3 g/dL Critically low 14.0-18.0 [facility] Comment on above: Performed By: #### C BC #### [facility] [address] [place] [address] Dr. Yara Chavez IG # 0.01 10e3/ul Normal 0.00-0.03 [facility] Comment on above: Performed By: #### C BC #### [facility] [address] [place] [address] Dr. Yara Chavez IG % 0.3 % Normal 0.0-0.5 [facility] Comment on above: Performed By: #### C BC #### [facility] [address] [place] [address] Dr. Yara Chavze LYMPH # 1.1 103/ul Critically low 1.2-3.8 [facility] Comment on above: Performed By: #### C BC #### [facility] [address] [place] [address] Dr. Yara Chavez Lymphocytes/100 WBC (Bld) 36.1 % Normal 20.5-60.0 [facility] Comment on above: Performed By: #### C BC #### [facility] [address] [place] [address] Dr. Yara Chavez MANUAL DIFF REQ NO Normal [facility] Comment on above: Performed By: #### C BC #### [facility] [address] [place] [address] Dr. Yara Chavez MCH (RBC) [Entitic mass] 28.0 pg Normal 25.9-34.0 [facility] Comment on above: Performed By: #### C BC #### [facility] [address] [place] [address] Dr. Yara Chavez MCHC (RBC) [Mass/Vol] 31.8 g/dL Normal 29.9-35.2 [facility] Comment on above: Performed By: #### C BC #### [facility] [address] [place] [address] Dr. Yara Chavez MCV (RBC) [Entitic vol] 88.2 fL Normal 80.0-94.0 [facility] Comment on above: Performed By: #### C BC #### [facility] [address] [place] [address] Dr. Yara Chavez MONO # 0.3 103/ul Normal 0.3-0.8 [facility] Comment on above: Performed By: #### C BC #### [facility] [address] [place] [address] Dr. Yara Chavez Monocytes/100 WBC (Bld) 9.5 % Normal 1.7-12.0 [facility] Comment on above: Performed By: #### C BC #### [facility] [address] [place] [address] Dr. Yara Chavez NEUT # 1.5 103/ul Normal 1.4-6.5 [facility] Comment on above: Performed By: #### C BC #### [facility] [address] [place] [address] Dr. Yara Chavez Neutrophils/100 WBC (Bld) 52.4 % Normal 43.0-75.0 [facility] Comment on above: Performed By: #### C BC #### [facility] [address] [place] [address] Dr. Yara Chavez Platelet mean volume (Bld) [Entitic vol] 10.1 fL Normal 9.5-13.5 [facility] Comment on above: Performed By: #### C BC #### [facility] [address] [place] [address] Dr. Yara Chavez PLT 195 103/ul Normal 150-450 [facility] Comment on above: Performed By: #### C BC #### [facility] [address] [place] [address] Dr. Yara Chavez RBC 4.39 106/ul Critically low 4.70-6.10 [facility] Comment on above: Performed By: #### C BC #### [facility] [address] [place] [address] Dr. Yara Chavez WBC 2.9 103/ul Critically low 4.0-11.0 [facility] Comment on above: Performed By: #### C BC #### [facility] [address] [place] [address] Dr. Yara Chavez LIPID PROFILEon 11-24-2021 CHOL-HDL RATIO NORM SEE BELOW Normal [facility] Comment on above: Result Comment: 3.3 - 4.4 LOW RISK 4.4 - 7.1 AVERAGE RISK 7.1 - 11.0 MODERATE RISK >11.0 HIGH RISK Performed By: #### A LT, BMP, LIPID #### [facility] [address] [place] [address] Dr. Yara Chavez Cholesterol [Mass/Vol] 124 mg/dL Normal <=200 [facility] Comment on above: Performed By: #### A LT, BMP, LIPID #### [facility] [address] [address] [address] Yara Chavez Cholesterol in HDL [Mass/Vol] 41 mg/dL Normal 40-60 [facility] Comment on above: Performed By: #### A LT, BMP, LIPID #### [facility] [address] [address] [address] Yara Chavez Cholesterol in LDL [Mass/Vol] 56.8 mg/dL Normal [facility] Comment on above: Performed By: #### A LT, BMP, LIPID #### [facility] [address] [address] [address] Yara Chavez Cholesterol.total/Cho lesterol in HDL [Mass ratio] 3.0 {ratio} Normal [facility] Comment on above: Performed By: #### A LT, BMP, LIPID #### [facility] [address] [place] [address] Dr. Yara Chavez HDL NORMAL > or = 60 mg/dl - LO W CARDIOVASCULAR RISK <40 mg/dl - HIGH CARDIOVASCULAR RISK Normal [facility] Comment on above: Performed By: #### A LT, BMP, LIPID #### [facility] [address] [address] [address] Yara Chavez LDL CALC NORMAL SEE BELOW Normal [facility] Comment on above: Result Comment: <100 mg/dl OPTIMAL 100 - 129 mg/dl NEAR OR ABOVE OPTIMAL 130 - 159 mg/dl BORDERLINE HIGH 160 - 189 mg/dl HIGH >190 mg/dl VERY HIGH Performed By: #### A LT, BMP, LIPID #### [facility] [address] [address] [address] Yara Chavez Triglyceride [Mass/Vol] 131 mg/dL Normal <=150 [facility] Comment on above: Performed By: #### A LT, BMP, LIPID #### [facility] [address] [address] [address] Yara Chavez VLDL CALC 26.2 mg/dL Normal [facility] Comment on above: Performed By: #### A LT, BMP, LIPID #### [facility] [address] [address] [address] Yara Chavez MICROALBUMIN, RAND URon 07- mALB 1.4 mg/L Normal <=30.0 [facility] Comment on above: Performed By: #### M ALBR #### [facility] [address] [place] [address] Dr. Yara Chavez PROF CHEM 8 (BAS METB)on Anion gap [Moles/Vol] 10.1 mmol/L Normal [facility] Comment on above: Performed By: #### A LT, BMP, LIPID #### [facility] [address] [place] [address] Dr. Yara Chavez Calcium [Mass/Vol] 9.0 mg/dL Normal 8.5-10.1 [facility] Comment on above: Performed By: #### A LT, BMP, LIPID #### [facility] [address] [place] [address] Dr. Yara Chavez Chloride [Moles/Vol] 105 mmol/L Normal 98-107 [facility] Comment on above: Performed By: #### A LT, BMP, LIPID #### [facility] [address] [place] [address] Dr. Yara Chavez CO2 [Moles/Vol] 31.3 mmol/L Normal 21.0-32.0 [facility] Comment on above: Performed By: #### A LT, BMP, LIPID #### [facility] [address] [place] [address] Dr. Yara Chavez Creatinine [Mass/Vol] 1.24 mg/dL Normal 0.70-1.30 [facility] Comment on above: Performed By: #### A LT, BMP, LIPID #### [facility] [address] [place] [address] Dr. Yara Chavez EGFR-AF GIBRALTARIAN >60 Normal >=60 [facility] Comment on above: Performed By: #### A LT, BMP, LIPID #### [facility] [address] [place] [address] Dr. Yara Chavez EGFR-NON AF GIBRALTARIAN 58 mL/min/1.73m2 Critically low >=60 [facility] Comment on above: Performed By: #### A LT, BMP, LIPID #### [facility] [address] [address] [address] Yara Chavez Glucose [Mass/Vol] 102 mg/dL Normal 74-106 [facility] Comment on above: Performed By: #### A LT, BMP, LIPID #### [facility] [address] [place] [address] Dr. Yara Chavez Potassium [Moles/Vol] 4.4 mmol/L Normal 3.5-5.1 [facility] Comment on above: Performed By: #### A LT, BMP, LIPID #### [facility] [address] [place] [address] Dr. Yara Chavez Sodium [Moles/Vol] 142 mmol/L Normal 136-145 [facility] Comment on above: Performed By: #### A LT, BMP, LIPID #### [facility] [address] [place] [address] Dr. Yara Chavez Urea nitrogen [Mass/Vol] 22.0 mg/dL Critically high 7.0-18.0 [facility] Comment on above: Performed By: #### A LT, BMP, LIPID #### [facility] [address] [place] [address] Dr. Yara Chavez Urea nitrogen/Creatinine [Mass ratio] 17.7 mg/mg Normal [facility] Comment on above: Performed By: #### A LT, BMP, LIPID #### [facility] [address] [place] [address] Dr. Yara Chavez [facility] 11-24-2021 ALT [Catalytic activity/Vol] 48 U/L Normal 16-63 [facility] Comment on above: Performed By: #### A LT, BMP, LIPID #### [facility] [address] [place] [address] Dr. Yara Chavez GLYCOHEMOGLOBIN A1Con 2021 ADA RECOMMENDATION SEE BELOW Normal [facility] Comment on above: Result Comment: ADA RECOMMENDED LIMIT 4.0 - 6.0 ADA THERAPEUTIC TARGET < 7.0 ACTION SUGGESTED > 7.0 Performed By: #### A 1C #### [facility] [address] [place] [address] Dr. Yara Chavez Glucose [Mass/Vol] 169 mg/dL Normal [facility] Comment on above: Performed By: #### A 1C #### [facility] [address] [place] [address] Dr. Yara Chavez HbA1c (Bld) [Mass fraction] 7.5 % Critically high 4.5-6.2 [facility] Comment on above: Performed By: #### A 1C #### [facility] [address] [place] [address] Dr. Yara Chavez PROF CHEM 8 (BAS METB)on Anion gap [Moles/Vol] 12.0 mmol/L Normal [facility] Comment on above: Performed By: #### B MP #### [facility] [address] [place] [address] Dr. Yara Chavez Calcium [Mass/Vol] 8.7 mg/dL Normal 8.5-10.1 [facility] Comment on above: Performed By: #### B MP #### [facility] [address] [place] [address] Dr. Yara Chavez Chloride [Moles/Vol] 103 mmol/L Normal 98-107 [facility] Comment on above: Performed By: #### B MP #### [facility] [address] [place] [address] Dr. Yara Chavez CO2 [Moles/Vol] 29.1 mmol/L Normal 21.0-32.0 [facility] Comment on above: Performed By: #### B MP #### [facility] [address] [place] [address] Dr. Yara Chavez Creatinine [Mass/Vol] 1.17 mg/dL Normal 0.70-1.30 [facility] Comment on above: Performed By: #### B MP #### [facility] [address] [place] [address] Dr. Yara Chavez EGFR-AF GIBRALTARIAN >60 Normal >=60 [facility] Comment on above: Performed By: #### B MP #### [facility] [address] [place] [address] Dr. Yara Chavez EGFR-NON AF GIBRALTARIAN >60 Normal >=60 [facility] Comment on above: Performed By: #### B MP #### [facility] [address] [address] [address] Yara Chavez Glucose [Mass/Vol] 144 mg/dL Critically high 74-106 [facility] Comment on above: Performed By: #### B MP #### [facility] [address] [address] [address] Yara Chavez Potassium [Moles/Vol] 4.1 mmol/L Normal 3.5-5.1 [facility] Comment on above: Performed By: #### B MP #### [facility] [address] [address] [address] Yara Chavez Sodium [Moles/Vol] 140 mmol/L Normal 136-145 [facility] Comment on above: Performed By: #### B MP #### [facility] [address] [address] [address] Yara Chavez Urea nitrogen [Mass/Vol] 18.0 mg/dL Normal 7.0-18.0 [facility] Comment on above: Performed By: #### B MP #### [facility] [address] [address] [address] Yara Chavez Urea nitrogen/Creatinine [Mass ratio] 15.4 mg/mg Normal [facility] Comment on above: Performed By: #### B MP #### [facility] [address] [address] [address] Yara ECHEVERRIAOVSPon 04-02-2019 OVS Visit (SP) Office (H EMASA) LISA LUGO ([id number]) 1950 Date Time Provider Department 04/02/19 11:15 THAIS WELLINGTON During your visit today, we recorded the following information about you: Temperature Pulse Respiration Blood pressure 98.1 degrees 72/minute 16/minute 131/69 Weight Height 80.5 kg 1.778 m Thais Hebert DO 04/03/2019 1:15 PM Signed PATIENT NAME: Lisa Lugo REFERRING PHYSICIAN: Theron Mendoza MD ([facility]) [address] [address] PRIMARY CARE PHYSICIAN: Theron Mendoza MD CHIEF [...] CBC + DIFF (FOR REMOTE [facility] USE) - IRON + TIBC - FERRITIN BLD - VITAMIN B12 BLOOD - FOLATE SERUM - METHYLMALONIC ACID - HEP REMOTE PANEL BL - SED RATE [facility] Return labs today. f/u 6 mos. . HISTORY OF PRESENT ILLNESS: This is a [...] questions satisfactorily.. Francois Hebert D.O. Medical Oncologist [place], [place] Referring Provider: THERON MENDOZA [[id number]] Allergies As of Date: 04/02/2019 (No Known Allergies) Date Reviewed: 04/02/2019 Reviewed by: Dorene Germain - Fully Assessed Reason for Visit: abdnormal lab [Other] Cmt: new patient consultation Primary Visit Diagnosis:Leukopenia, unspecified type [D72.819] Other Visit Diagnosis:Abnormal finding of blood chemistry, unspecified [R79.9] Order(s):PROTEIN ELECTROPHORESIS W/INTERP [SQSEPG] Order #: [id number] FUTURE MONOCLONAL PROTEIN, SERUM (BLOOD) [SQSERMPA] Order #: [id number] FUTURE IMMUNOGLOBULINS SHANIA [SQSERIMM] Order #: [id number] FUTURE LD LACTATE DEHYDRO [SQLD6] Order #: [id number] FUTURE COMP METABOLIC PANEL [SQCMP] Order #: [id number] FUTURE CBC + DIFF (FOR REMOTE C USE) [SQRCBCDF] Order #: [id number] FUTURE IRON + TIBC [SQIRON] Order #: [id number] FUTURE FERRITIN BLD [SQFERR] Order #: [id number] FUTURE VITAMIN B12 BLOOD [SQB12] Order #: [id number] FUTURE FOLATE SERUM [SQSERFOL] Order #: [id number] FUTURE METHYLMALONIC ACID [SQMMA] Order #: [id number] FUTURE HEP REMOTE PANEL BL [SQHREMOP] Order #: [id number] FUTURE SED RATE WESTERGREN [SQWSR] Order #: [id number] FUTURE Disposition: Return labs today. f/u 6 [...] by THAIS HEBERT DO on 04/03/19 Normal [facility] Comp Metabolic Panelon 04-02 Albumin [Mass/Vol] 4.4 g/dL Normal 3.9-4.9 [facility] ALP [Catalytic activity/Vol] 102 U/L Normal 38-113 [facility] ALT [Catalytic activity/Vol] 53 U/L Normal 10-54 [facility] Anion gap [Moles/Vol] 13 mmol/L Normal 9-18 [facility] AST [Catalytic activity/Vol] 31 U/L Normal 14-40 [facility] Bilirubin [Mass/Vol] 0.6 mg/dL Normal 0.2-1.3 [facility] Calcium [Mass/Vol] 9.6 mg/dL Normal 8.5-10.2 [facility] Chloride [Moles/Vol] 98 mmol/L Normal 97-105 [facility] CO2 [Moles/Vol] 24 mmol/L Normal 22-30 [facility] Creatinine [Mass/Vol] 0.94 mg/dL Normal 0.73-1.22 [facility] eGFR- Amer. >60 Normal [facility] GFR/1.73 sq M predicted among non-blacks MDRD (S/P/Bld) [Vol rate/Area] mL/min/{1.73_m2} Normal [facility] Comment on above: Result Comment: eGFR (Estimated GFR) Units of measure: [...] GFR. Glucose [Mass/Vol] 257 mg/dL High 74-99 [facility] Comment on above: Result Comment: The [place] Diabetes Association (ADA) provides guidance for cutoff [...] Standards of Medical Care in Diabetes 2016, [place] Diabetes Association. Diabetes Care. 2016.39(Suppl 1). Potassium [Moles/Vol] 4.8 mmol/L Normal 3.7-5.1 [facility] Protein [Mass/Vol] 7.4 g/dL Normal 6.3-8.0 [facility] Sodium [Moles/Vol] 135 mmol/L Low 136-144 [facility] Urea nitrogen [Mass/Vol] 19 mg/dL Normal 9-24 [facility] Ferritinon 04-02-2019 Ferritin [Mass/Vol] 279.0 ng/mL Normal 30.3-565.7 [facility] Comment on above: Performed By: #### W SR, B12, SERFOL, IRON, FERR, SERIMM, HREMOP, SERMPA, SEPG, MMA #### [facility] [address] [place], [place] [address] Folate, Serumon 04-02-2019 Folate [Mass/Vol] ng/mL Normal >4.7 [facility] Comment on above: Result Comment: A re sult of > 20 ng/mL is not necessarily indicative of a pathologic or treatable condition: it reflects a limitation of the test methodology. Assay reference range: 4.8 to 24.2 ng/mL. Suitable for detection of folate deficiency. Reference: Folate III (Folate III) [package insert V 2.0 [place]ian]. [facility], [place], [place]: February 2015. Performed By: #### W SR, B12, SERFOL, IRON, FERR, SERIMM, HREMOP, SERMPA, SEPG, MMA #### [place] [phone] Hepatitis Remote Panelon HBsAg Negative Normal Negative [facility] Comment on above: Performed By: #### W SR, B12, SERFOL, IRON, FERR, SERIMM, HREMOP, SERMPA, SEPG, MMA #### [place] [phone] Hep B Core Ab,Total Negative Normal Negative [facility] Comment on above: Performed By: #### W SR, B12, SERFOL, IRON, FERR, SERIMM, HREMOP, SERMPA, SEPG, MMA #### [place] [phone] Hepatitis C Ab IA Negative Normal Negative [facility] Comment on above: Performed By: #### W SR, B12, SERFOL, IRON, FERR, SERIMM, HREMOP, SERMPA, SEPG, MMA #### [place] [phone] HepB Surface Ab,Qual Negative Normal Negative [facility] Comment on above: Result Comment: NEGA TIVE Performed By: #### W SR, B12, SERFOL, IRON, FERR, SERIMM, HREMOP, SERMPA, SEPG, MMA #### [place] [phone] Immunoglobulins GAMon 2018 IgA [Mass/Vol] 323 mg/dL Normal 78-391 [facility] Comment on above: Performed By: #### W SR, B12, SERFOL, IRON, FERR, SERIMM, HREMOP, SERMPA, SEPG, MMA #### [address] [place] [address] IgG [Mass/Vol] 981 mg/dL Normal 717-1411 [facility] Comment on above: Performed By: #### W SR, B12, SERFOL, IRON, FERR, SERIMM, HREMOP, SERMPA, SEPG, MMA #### [address] [address] [place] [phone] IgM [Mass/Vol] 133 mg/dL Normal 53-334 [facility] Comment on above: Performed By: #### W SR, B12, SERFOL, IRON, FERR, SERIMM, HREMOP, SERMPA, SEPG, MMA #### [place] [phone] Iron and TIBCon 04-02-2019 Iron [Mass/Vol] 80 ug/dL Normal 41-186 [facility] Comment on above: Performed By: #### W SR, B12, SERFOL, IRON, FERR, SERIMM, HREMOP, SERMPA, SEPG, MMA #### [place] [phone] TIBC 247 ug/dL Normal 232-386 [facility] Comment on above: Performed By: #### W SR, B12, SERFOL, IRON, FERR, SERIMM, HREMOP, SERMPA, SEPG, MMA #### [place] [address] [place] [phone] Transferrin Saturatn 32 % Normal 15-57 [facility] Comment on above: Performed By: #### W SR, B12, SERFOL, IRON, FERR, SERIMM, HREMOP, SERMPA, SEPG, MMA #### [place] [id number] LDon 04-02-2019 LD 131 U/L Low 135-225 [facility] Comment on above: Performed By: #### W SR, B12, SERFOL, IRON, FERR, SERIMM, HREMOP, SERMPA, SEPG, MMA #### [facility] [address] [address] Methylmalonic Acidon 019 Methylmalonic Acid 232 nmol/L Normal 79-376 [facility] Comment on above: Result Comment: This test was developed and its performance characteristics determined by [facility]'s [facility] Pathology and Laboratory Medicine [place] ([facility]). It has not been cleared or approved by the FDA. [facility] is regulated under CLIA as qualified to perform high complexity testing. This test is used for clinical purposes. It should not be regarded as investigational or for research. Performed By: #### W SR, B12, SERFOL, IRON, FERR, SERIMM, HREMOP, SERMPA, SEPG, MMA ####[facility] [place], [place] [phone] Monclnl Protein, Seron 04-02 K/L Ratio, Serum 1.88 High 0.26-1.65 [facility] Comment on above: Performed By: #### W SR, B12, SERFOL, IRON, FERR, SERIMM, HREMOP, SERMPA, SEPG, MMA ####[facility] [place], [place] [phone] Finklea, Free, Serum 47.1 mg/L High 3.30-19.40 [facility] Comment on above: Result Comment: Test performed by an immunoturbidimetric assay on Netaplan instrument from [facility]. Immunoglobulin free light chain assay results should be interpreted in conjunction with other tests and in correlation with clinical picture. Performed By: #### W SR, B12, SERFOL, IRON, FERR, SERIMM, HREMOP, SERMPA, SEPG, MMA ####[place] [address] [address] [phone] Lambda, Free, Serum 25.0 mg/L Normal 5.7-26.3 [facility] Comment on above: Result Comment: Test performed by an immunoturbidimetric assay on curated.bylite instrument from [facility]. Immunoglobulin free light chain assay results should be interpreted in conjunction with other tests and in correlation with clinical picture. Performed By: #### W SR, B12, SERFOL, IRON, FERR, SERIMM, HREMOP, SERMPA, SEPG, MMA ####[place] [address] [address] [phone] [facility] Serum IgA 336 mg/dL Normal 78-391 [facility] Comment on above: Performed By: #### W SR, B12, SERFOL, IRON, FERR, SERIMM, HREMOP, SERMPA, SEPG, MMA ####[place] [address] [address] [phone] [facility] Serum IgG 950 mg/dL Normal 717-1411 [facility] Comment on above: Performed By: #### W SR, B12, SERFOL, IRON, FERR, SERIMM, HREMOP, SERMPA, SEPG, MMA ####[place] [address] [address] [phone] MPA Serum IgM 136 mg/dL Normal 53-334 [facility] Comment on above: Performed By: #### W SR, B12, SERFOL, IRON, FERR, SERIMM, HREMOP, SERMPA, SEPG, MMA ####[place] [address] [address] [phone] Protein [Mass/Vol] No M protein is identified. Normal No M protein is identified . [facility] Comment on above: Performed By: #### W SR, B12, SERFOL, IRON, FERR, SERIMM, HREMOP, SERMPA, SEPG, MMA ####[place] [address] [place], [place] [phone] Staff Review Reviewed by Chadd Ackerman MD ([id number]) Normal [facility] Comment on above: Performed By: #### W SR, B12, SERFOL, IRON, FERR, SERIMM, HREMOP, SERMPA, SEPG, MMA ####[facility] [address] [place], [place] [phone] PROGRESSon 04-02-2019 PROGRESS HNO ID: [id number] Author: Thais Agrawal Rjdomoniqueame Service: ? Author Type: Physician Type: Progress Notes Filed: 04/03/2019 1:15 PM Note Text: PATIENT NAME: Lisa Lugo REFERRING PHYSICIAN: Theron Mendoza MD ([facility]) [address] [address] PRIMARY CARE PHYSICIAN: Theron Mendoza MD CHIEF [...] CBC + DIFF (FOR REMOTE [facility] USE) - IRON + TIBC - FERRITIN BLD - VITAMIN B12 BLOOD - FOLATE SERUM - METHYLMALONIC ACID - HEP REMOTE PANEL BL - SED RATE WESTERGREN Return labs today. f/u 6 mos. . HISTORY OF PRESENT ILLNESS: This is a [...] questions satisfactorily.. Francois Hebert D.O. Medical Oncologist [place], [place] Normal [facility] Protein Electrophor.on 04-02 Albumin [Mass/Vol] 3.79 g/dL Normal 3.37-4.23 [facility] Comment on above: Performed By: #### W SR, B12, SERFOL, IRON, FERR, SERIMM, HREMOP, SERMPA, SEPG, MMA ####[facility] [place], [place] [phone] Alpha 1 Globulin 0.31 gm/dL Normal 0.18-0.31 [facility] Comment on above: Performed By: #### W SR, B12, SERFOL, IRON, FERR, SERIMM, HREMOP, SERMPA, SEPG, MMA ####[facility], [place] [phone] Alpha 2 Globulin 0.96 gm/dL Normal 0.52-0.97 [facility] Comment on above: Performed By: #### W SR, B12, SERFOL, IRON, FERR, SERIMM, HREMOP, SERMPA, SEPG, MMA ####[facility] [address] [place] [phone] Beta Globulin 1.17 gm/dL Normal 0.84-1.36 [facility] Comment on above: Performed By: #### W SR, B12, SERFOL, IRON, FERR, SERIMM, HREMOP, SERMPA, SEPG, MMA ####[place] [address]re[address] [place] [phone] Gamma Globulin 0.97 gm/dL Normal 0.70-1.44 [facility] Comment on above: Performed By: #### W SR, B12, SERFOL, IRON, FERR, SERIMM, HREMOP, SERMPA, SEPG, MMA ####[place] [address] [address] [phone] Interpretation SEE COMMENT Normal [facility] Comment on above: Result Comment: No d efinitive M protein is identified on protein electrophoresis. Performed By: #### W SR, B12, SERFOL, IRON, FERR, SERIMM, HREMOP, SERMPA, SEPG, MMA ####[place] [address] [address] [phone] M Guy Concentratn 0.00 gm/dL Normal 0.00 [facility] Comment on above: Performed By: #### W SR, B12, SERFOL, IRON, FERR, SERIMM, HREMOP, SERMPA, SEPG, MMA ####[place] [address] [address] [place] [phone] Protein [Mass/Vol] 7.2 g/dL Normal 6.0-8.4 [facility] Comment on above: Performed By: #### W SR, B12, SERFOL, IRON, FERR, SERIMM, HREMOP, SERMPA, SEPG, MMA ####[place] [address] [place] [phone] Protein [Mass/Vol] N/A Normal [facility] Comment on above: Performed By: #### W SR, B12, SERFOL, IRON, FERR, SERIMM, HREMOP, SERMPA, SEPG, MMA ####[facility] [address] [place], [place] [phone] SPE Staff Review Reviewed by Chadd Ackerman MD ([id number]) Normal [facility] Comment on above: Performed By: #### W SR, B12, SERFOL, IRON, FERR, SERIMM, HREMOP, SERMPA, SEPG, MMA ####[facility] [address] [place], [place] [phone] Remote CBCDIF (for [facility] use o nly)on 04-02-2019 Abs Baso <0.03 Normal 0.00-0.10 [facility] Abs [place] 0.48 k/uL Normal 0.00-0.86 [facility] Abs Neut 4.30 k/uL Normal 1.45-7.50 [facility] Basophils/100 WBC (Bld) 0.2 % Normal [facility] Eosinophils (Bld) [#/Vol] 0.04 10*3/uL Normal 0.00-0.45 [facility] Eosinophils/100 WBC (Bld) 0.7 % Normal [facility] Erythrocyte distribution width (RBC) [Ratio] 13.9 % Normal 11.5-15.0 [facility] Hematocrit (Bld) [Volume fraction] 39.6 % Normal 39.0-51.0 [facility] Hemoglobin (Bld) [Mass/Vol] 12.6 g/dL Low 13.0-17.0 [facility] Lymphocytes (Bld) [#/Vol] 0.84 10*3/uL Low 1.00-4.00 [facility] Lymphocytes/100 WBC (Bld) 14.8 % Normal [facility] MCH (RBC) [Entitic mass] 27.4 pG Normal 26.0-34.0 [facility] MCHC (RBC) [Mass/Vol] 31.8 g/dL Normal 30.5-36.0 [facility] MCV (RBC) [Entitic vol] 86.1 fL Normal 80.0-100.0 [facility] Monocytes/100 WBC (Bld) 8.5 % Normal [facility] Neutrophils/100 WBC (Bld) 75.8 % Normal [facility] Platelet mean volume (Bld) [Entitic vol] 9.7 fL Normal 9.0-12.7 [facility] Platelets (Bld) [#/Vol] 243 10*3/uL Normal 150-400 [facility] RBC (Bld) [#/Vol] 4.60 10*6/uL Normal 4.20-6.00 [facility] WBC (Bld) [#/Vol] 5.67 10*3/uL Normal 3.70-11.00 [facility] Sed Rate Westergrenon 2018 Sed Rate Westergren 41 mm/hr High 0-15 [facility] Comment on above: Performed By: #### W SR, B12, SERFOL, IRON, FERR, SERIMM, HREMOP, SERMPA, SEPG, MMA #### [facility] [address] [phone] Vitamin B12on 04-02-2019 Cobalamin (Vitamin B12) [Mass/Vol] 595 pg/mL Normal 232-1245 [facility] Comment on above: Performed By: #### W SR, B12, SERFOL, IRON, FERR, SERIMM, HREMOP, SERMPA, SEPG, MMA #### [facility] [address] [place] [address] Cardiovascular Lab Reporton 04-26-2017 Cardiovascular Lab Report [facility] Patient Name: Lisa Lugo [facility] MR #: [id number] Physician: Jenny Parsons M.D.Medicine Service Date: 04/25/2017Division of Birthdate: 2Cardiology Room #: 3CD [id number] CardiovascularServicesUn[address] [address]Iwbyc Fax Cardiovascular Laboratory ReportINDICATION: Mr. Lisa Lugo is a 66-year-old man, known to havecoronary artery disease status post multiple stenting procedures in [facility]. Recently, he presented with transient ST-segment elevation in thesetting of ongoing chest pain. He underwent cardiac catheterization anddrug-eluting stenting of the distal right coronary artery de rachel stenosisas well as drug-eluting stenting of the proximal right coronary arteryin-stent restenosis. At that time, he was found to have osck-lwzxsnk-eugun restenosis in the mid LAD. He is [...] angiography was performedfollowed by upsizing to a 6-Mexican x 11 cm sheath. Heparin wasadministered intravenously and therapeutic ACT confirmed during theprocedure. A 6-Mexican XB 3.5 guiding catheter was advanced and [...] the Prowater wire.Angiography was performed. NC Quantum Chamberino 2.5 x 15 mm noncompliantballoon was then [...] 04/25/2017/09:47 A/Jenny Foster M.D.Date Trans: 04/26/2017 02:28 A/Kehinde_JN:[id number]: Theron Mendoza D.O. [address] [place] [phone] Normal [facility] POC GLUCOSE LABon 04-26-2017 Glucose mass conc 99 mg/dL Normal 70-100 [facility] Comment on above: Performed By: #### 5 0608 ####[facility] CBC COMPLETE BLOOD COUNTon 06-26-2016 Erythrocyte distribution width Auto Ratio (RBC) 14.3 % Normal 11.5-16.9 [facility] Comment on above: Order Comment: Yes: Add to Previous draw if able Performed By: #### 5 0608 ####[facility] Erythrocytes (RBC) 4.16 mill/mm3 Low 4.30-5.90 [facility] Comment on above: Order Comment: Yes: Add to Previous draw if able Performed By: #### 5 0608 ####[address] Hematocrit (HCT) 34.8 % Low 39.0-55.0 [facility] Comment on above: Order Comment: Yes: Add to Previous draw if able Performed By: #### 5 0608 ####[facility] [facility] Hemoglobin mass conc (Bld) 11.8 g/dL Low 13.9-16.3 [facility] Comment on above: Order Comment: Yes: Add to Previous draw if able Performed By: #### 5 0608 ####[facility] [facility] MCH 28.2 pg Normal 24.0-32.0 [facility] Comment on above: Order Comment: Yes: Add to Previous draw if able Performed By: #### 5 0608 ####[facility]3000 [facility].[address] MCHC mass conc (RBC) 33.8 g/dL Normal 32.0-36.0 [facility] Comment on above: Order Comment: Yes: Add to Previous draw if able Performed By: #### 5 0608 ####[address] [place] [address], [facility] MCV 83.6 fL Normal 80.0-100.0 [facility] Comment on above: Order Comment: Yes: Add to Previous draw if able Performed By: #### 5 0608 ####[facility] [facility] [place] [place] [address], [facility] PLAT CNT 198 Thou/mm3 Normal 100-400 [facility] Comment on above: Order Comment: Yes: Add to Previous draw if able Performed By: #### 5 0608 ####[facility]3000 [facility] [address], [facility] WBC (Leukocytes) 3.9 Thou/mm3 Low 4.0-10.0 [facility] Comment on above: Order Comment: Yes: Add to Previous draw if able Performed By: #### 5 0608 ####[facility]3000 [facility].[address] POC GLUCOSE LABon 04-25-2017 Glucose mass conc 232 mg/dL High 70-100 [facility] Comment on above: Performed By: #### 8 5499 ####[facility]3000 [facility].[address] Glucose mass conc 281 mg/dL High 70-100 [facility] Comment on above: Performed By: #### 8 5499 ####[place] [address] [facility].[address] Discharge Summaryon 04-20-20 17 Discharge Summary MR#: [id number] [facility] Pt. Name: Lisa Lugo Admitted: [...] history, requiring stentingin the past, presented to [facility] initially with complaints ofrecurrent chest pain at rest. Initial EKG showed minor ST-segment elevationin the inferior leads, which resolved after administration of IV heparinand nitroglycerin. [facility] and intervention. Heunderwent left heart catheterization with successful balloon dilatation andstenting of 2 lesions. The patient recovered well postprocedure with nofurther recurrence of chest pain. Right femoral access site healed well.DISCHARGE CONDITION: Stable.DISCHARGE DISPOSITION: Home.DISCHARGE MEDICATIONS: Aspirin 81 mg daily, atenolol 25 mg daily, Kslzrdsr073 mg daily, Clopidogrel 75 mg daily, Lantus 45 units in the evening,Lipitor 40 mg daily, pantoprazole 40 mg daily.Electronically Signed by:Mo Sanchez M.D. 05/14/2017 12:05 P Mo Sanchez M.D. I personally saw this patient on the day of the encounter, performed thekey portion(s) of the service and participated in the management andconfirm the resident's documentation. Please note there may be anadditional personal documentation from me. Date Dict: 04/19/2017/06:17 Malick/Rosemary Pinzon Trans: 04/20/2017 07:36 A/Kehinde_[id number]: Theron Mendoza D.O. [address] [place] [phone] Tino Gunderson M.D. [address] [address] Normal [facility] BASIC METABOLIC PANELon 12-1 Calcium 9.0 mg/dL Normal 8.6-10.3 [facility] Comment on above: Order Comment: No: D o not add to previous draw Performed By: #### 1 69, 380[address] ####[facility] [place] [address], [facility] Chloride 104 mmol/L Normal 98-107 [facility] Comment on above: Order Comment: No: D o not add to previous draw Performed By: #### 1 69, 51259 ####[place] [address] [id number], [place] CO2 24 mmol/L Normal 21-31 [facility] Comment on above: Order Comment: No: D o not add to previous draw Performed By: #### 1 69, 02812 ####[facility] [place] [address], [place] Creatinine 0.94 mg/dL Normal 0.70-1.30 [facility] Comment on above: Order Comment: No: D o not add to previous draw Performed By: #### 1 69, 03572 ####[facility] [place] [address], [facility] eGFR (black) mL/min/{1.73_m2} Normal >60 [facility] Comment on above: Order Comment: No: D o not add to previous draw Performed By: #### 1 69, 24074 ####[facility] [place] [address], [place] eGFR (non-black) mL/min/{1.73_m2} Normal >60 Th e [facility] Comment on above: Order Comment: No: D o not add to previous draw Performed By: #### 1 69, 70783 ####[facility] [place] [address], [facility] Glucose mass conc 182 mg/dL High 70-100 [facility] Comment on above: Order Comment: No: D o not add to previous draw Performed By: #### 1 69, 09064 ####[facility] [place] [address], [facility] Potassium molar conc 3.9 mmol/L Normal 3.5-5.1 [facility] Comment on above: Order Comment: No: D o not add to previous draw Performed By: #### 1 69, 35343 ####[facility] [facility] [place] [place] [address], [facility] Sodium 138 mmol/L Normal 136-145 [facility] Comment on above: Order Comment: No: D o not add to previous draw Performed By: #### 1 69, 236[address] ####[facility] [facility].[address] Urea nitrogen 18 mg/dL Normal 7-25 [facility] Comment on above: Order Comment: No: D o not add to previous draw Performed By: #### 1 69, [address] ####[place] [address] [facility].[address] CBC COMPLETE BLOOD COUNTon 1 06-17-2016 Erythrocyte distribution width Auto Ratio (RBC) 14.7 % Normal 11.5-16.9 [facility] Comment on above: Order Comment: No: D o not add to previous draw Performed By: #### 5 0608 ####[facility] [place] [address], [facility] Erythrocytes (RBC) 4.37 mill/mm3 Normal 4.30-5.90 [facility] Comment on above: Order Comment: No: D o not add to previous draw Performed By: #### 5 0608 ####[facility] [place] [address], [place] Hematocrit (HCT) 36.5 % Low 39.0-55.0 [facility] Comment on above: Order Comment: No: D o not add to previous draw Performed By: #### 5 0608 ####[facility] [facility].[address] Hemoglobin mass conc (Bld) 12.3 g/dL Low 13.9-16.3 [facility] Comment on above: Order Comment: No: D o not add to previous draw Performed By: #### 5 0608 ####[facility] MCH 28.0 pg Normal 24.0-32.0 [facility] Comment on above: Order Comment: No: D o not add to previous draw Performed By: #### 5 0608 ####[place] [address] [facility].[address] MCHC mass conc (RBC) 33.5 g/dL Normal 32.0-36.0 [facility] Comment on above: Order Comment: No: D o not add to previous draw Performed By: #### 5 0608 ####[place] [address] [facility].[address] MCV 83.5 fL Normal 80.0-100.0 [facility] Comment on above: Order Comment: No: D o not add to previous draw Performed By: #### 5 0608 ####[facility] [place] [address], [facility] PLAT CNT 167 Thou/mm3 Normal 100-400 [facility] Comment on above: Order Comment: No: D o not add to previous draw Performed By: #### 5 0608 ####[place] [address], [facility] WBC (Leukocytes) 4.7 Thou/mm3 Normal 4.0-10.0 [facility] Comment on above: Order Comment: No: D o not add to previous draw Performed By: #### 5 0608 ####[facility] [place] [address] Cardiovascular Lab Reporton 04-16-2017 Cardiovascular Lab Report [facility] Patient Name: Lisa Lugo [facility] MR #: [id number] Physician: Jenny Parsons M.D.Medicine Service Date: 04/15/2017Division of Birthdate: 2Cardiology Room #: 3AB [id number] CardiovascularServicesUniver [facility] HospitalObgasizJaybpg[address] [place], [place] [address]Qvnry Fax Cardiovascular Laboratory ReportINDICATION: Lisa Lugo is a 66-year-old man, known to have coronaryartery disease, status post multiple stenting procedures in the past, whop[facility] with recurrent chest pain at rest. Heinitially had minor ST elevations in the inferior leads that resolved afteradministration of intravenous heparin and nitroglycerin. Because ofrecurrent chest pain, he was transferred emergently to our hospital laboratory technician fordiagnostic angiography and intervention.PROCEDURE:1. Bilateral [...] EMS services. He was placed on the hospital laboratory technician table.Both groin areas were prepped and draped in usual fashion. Usingmicropuncture technique, access in the right common femoral artery wasobtained and the inner cannula was advanced. Limited femoral angiographywas performed followed by upsizing to a 6-Mexican x 11 cm sheath. Bilateralselective coronary angiography was then performed using 6-Mexican JL4 andJR4 diagnostic catheters.Heparin was administered intravenously and therapeutic ACT confirmed duringthe procedure. A 6-Mexican JR4 guiding catheter was advanced and used toengage the right coronary ostium. A Prowater wire was advanced into thedistal RCA. Balloon dilatation in the distal RCA was performed usingEmerge 2.0 x 12 mm balloon and inflated at 12 atmospheres. Angiographyrevealed suboptimal results. This was treated using a PROMUS Premier 2.5 x16 mm drug-eluting stent, deployed at 11 atmospheres and post dilated usingNC Quantum Chamberino 2.5 x 8 mm noncompliant balloon inflated [...] in-stent restenosis was performed using NC Quantum Chamberino 3.0 x8 mm noncompliant balloon inflated at 14 atmospheres followed by additionaldilatation using NC Quantum Chamberino 3.0 x 12 mm noncompliant balloon inflatedat [...] 14atmospheres and post dilated using NC Quantum Chamberino 3.25 x 20 mmnoncompliant balloon inflated at 20 atmospheres throughout the length ofthe stent. Final angiography after administration of intracoronarynitroglycerin showed excellent result with reduction of the stenosis to 0%.No evidence of dissection or perforation. The guiding catheter wasremoved. The procedure was concluded. The right femoral arteriotomy wasmanaged with a 6-Mexican Perclose device with good hemostasis. The patientwas [...] P Jenny Foster M.D.Date Dict: 04/15/2017/06:14 P/Jenny Foster M.D.Date Trans: 04/16/2017 07:04 A/Kehinde_JN:[id number]: Theron Mendoza D.O. [address] [place] [phone] Tino Gunderson M.D. [facility]5 [facility] [address] Normal [facility] MAGNESIUM BLOODon 04-16-2017 Magnesium 1.9 mg/dL Normal 1.9-2.7 [facility] Comment on above: Order Comment: No: D o not add to previous draw Performed By: #### 1 5120, 77981 ####[facility] [place] [address], [facility] POC GLUCOSE LABon 04-16-2017 Glucose mass conc 173 mg/dL High 70-100 [facility] Comment on above: Performed By: #### 8 5499 ####[facility] [place] [address], [facility] Glucose mass conc 228 mg/dL High 70-100 [facility] Comment on above: Performed By: #### [id number] ####[facility] [place] [address], [facility] POC GLUCOSE LABon 04-15-2017 Glucose mass conc 214 mg/dL High 70-100 [facility] Comment on above: Performed By: #### [id number] ####[facility] [place] [address], [facility] Vital Signs Date Time Vital Sign Value Performing Clinician Facility 11-05-2024 10:20-0400 Body height 177.8 cm Theron Ball DO Work Phone: [facility] 11-05-2024 10:20-0400 Body mass index (BMI) [Ratio] 25.3 kg/m2 Theron Ball DO Work Phone: [facility] 11-05-2024 10:20-0400 Body weight 80.05 kg Theron Ball DO Work Phone: [facility] 11-05-2024 10:20-0400 Diastolic blood pressure 73 mm[Hg] Theron Ball DO Work Phone: [facility] 11-05-2024 10:20-0400 Heart rate 66 /min Theron Ball DO Work Phone: [facility] 11-05-2024 10:20-0400 Respiratory rate 12 /min Theron Ball DO Work Phone: [facility] 11-05-2024 10:20-0400 Systolic blood pressure 135 mm[Hg] Theron Ball DO Work Phone: [facility] 12-18-2023 13:53-0400 Blood Pressure Location Chadd NILL [facility] 12-18-2023 13:53-0400 Diastolic blood pressure 74 mm[Hg] Chadd NILL [facility] 12-18-2023 13:53-0400 Heart rate 70 /min Chadd NILL [facility] 12-18-2023 13:53-0400 Respiratory rate 16 /min Chadd NILL [facility] 12-18-2023 13:53-0400 Systolic blood pressure 126 mm[Hg] Chadd NILL [facility] 11-05-2023 13:43-0400 Body height 177.8 cm [facility] 11-05-2023 13:43-0400 Body mass index (BMI) [Ratio] 25.7 kg/m2 [facility] 11-05-2023 13:43-0400 Body weight 81.24 kg [facility] 11-05-2023 13:43-0400 Diastolic blood pressure 71 mm[Hg] [facility] 11-05-2023 13:43-0400 Heart rate 71 /min [facility] 11-05-2023 13:43-0400 Respiratory rate 12 /min [facility] 11-05-2023 13:43-0400 Systolic blood pressure 121 mm[Hg] [facility] 10-01-2023 12:35-0400 Blood Pressure Location DOMINGA PRESLEY [facility] 10-01-2023 12:35-0400 Diastolic blood pressure 78 mm[Hg] DOMINGA PRESLEY [facility] 10-01-2023 12:35-0400 Heart rate 72 /min DOMINGA PRESLEY [facility] 10-01-2023 12:35-0400 Respiratory rate 16 /min DOMINGA PRESLEY [facility] 10-01-2023 12:35-0400 Systolic blood pressure 137 mm[Hg] DOMINGA PRESLEY [facility] 04-02-2023 09:30-0500 Body height 177.8 cm Theron Ball Other [facility] [employer] Other 04-02-2023 09:30-0500 Body mass index (BMI) [Ratio] 25.97 kg/m2 Theron Ball Other [facility] Other 04-02-2023 09:30-0500 Body weight 82.1 kg Theron Ball Other [facility] [employer] Other 04-02-2023 09:30-0500 Diastolic blood pressure 85 mm[Hg] Theron Ball Other [facility] Other 04-02-2023 09:30-0500 Respiratory rate 12 /min Theron Ball Other [facility] [employer] Other 04-02-2023 09:30-0500 Systolic blood pressure 135 mm[Hg] Theron Ball Other [facility] Other 11-01-2022 10:00-0400 Body height 177.8 cm Theron Ball Other [facility] Other 11-01-2022 10:00-0400 Body mass index (BMI) [Ratio] 25.77 kg/m2 Theron Ball Other [facility] Other 11-01-2022 10:00-0400 Body weight 81.47 kg Theron Ball Other [facility] Other 11-01-2022 10:00-0400 Diastolic blood pressure 71 mm[Hg] Theron Ball Other [facility] Other 11-01-2022 10:00-0400 Respiratory rate 12 /min Theron Ball Other [facility] Other 11-01-2022 10:00-0400 Systolic blood pressure 124 mm[Hg] Theron Ball Other [facility] Other 10-03-2022 13:45-0400 Body height 177.8 cm Theron Ball Other [facility] Other 10-03-2022 13:45-0400 Body mass index (BMI) [Ratio] 26.23 kg/m2 Theron Ball Other [facility] Other 10-03-2022 13:45-0400 Body weight 82.92 kg Theron Ball Other [facility] Other 10-03-2022 13:45-0400 Diastolic blood pressure 76 mm[Hg] Theron Ball Other [facility] Other 10-03-2022 13:45-0400 Respiratory rate 12 /min Theron Ball Other [facility] Other 10-03-2022 13:45-0400 Systolic blood pressure 160 mm[Hg] Theron Ball Other [facility] Other 11-20-2021 12:31-0400 Blood Pressure Location Tom LIZABETH [facility] 11-20-2021 12:31-0400 Diastolic blood pressure 80 mm[Hg] Tom ARGUETA [facility] 11-20-2021 12:31-0400 Heart rate 74 /min Tom ARGUETA [facility] 11-20-2021 12:31-0400 Respiratory rate 16 /min Tom ARGUETA [facility] 11-20-2021 12:31-0400 Systolic blood pressure 133 mm[Hg] Tom ARGUETA [facility] Encounters Encounter Date Encounter Type Care Provider Facility Start: 10-01-2025 ambulatory Tom Vicki ARGUETA Facili ty:[facility] [place] Start: 09-24-2025 ambulatory Tom Vicki ARGUETA Facili ty:[facility] [place] Start: 11-05-2024 End: 11-05-2024 ambulatory Theron Mendoza DO Work Phone: [facility] Work Phone: Start: 11-05-2024 End: 11-05-2024 Patient encounter procedure Theron Mendoza DO -[facility] Work Phone: Start: 11-03-2024 Non-patient / Non-visit Theron frost DO -[facility] Work Phone: Start: 10-02-2024 End: 10-02-2024 ambulatory Tom ARGUETA Facility:[facility] Start: 10-02-2024 End: 10-02-2024 Patient encounter procedure Tom ARGUETA [facility] Start: 09-25-2024 Non-patient / Non-visit Dominga enriquez PA-C -[facility] Work Phone: Start: 04-27-2024 End: 04-27-2024 ambulatory Natali Weir MD Facility:[facility] [place] Start: 04-13-2024 End: 04-13-2024 ambulatory Natali Weir MD Facility: [place] Start: 03-23-2024 End: 03-23-2024 ambulatory Natali Weir MD Facility:[facility] Start: 01-08-2024 ambulatory Chadd BARBOUR Facility : [place] Start: 01-06-2024 End: 01-06-2024 ambulatory Natali Weir MD Facility: Start: 01-01-2024 End: 01-01-2024 ambulatory Chadd BARBOUR Facility:CD:[id number] Start: 12-18-2023 End: 12-18-2023 ambulatory Chadd BARBOUR Facility: [facility] Start: 12-18-2023 End: 12-18-2023 Patient encounter procedure Chadd BARBOUR [facility] Start: 12-16-2023 End: 12-16-2023 ambulatory Natali Weir MD Facility: [place] Start: 12-02-2023 End: 12-02-2023 ambulatory Natali Weir MD Facility: [facility] Start: 11-18-2023 End: 11-18-2023 ambulatory Natali Weir MD Facility: [place] Start: 11-05-2023 End: 11-05-2023 ambulatory [facility] Work Phone: Start: 11-05-2023 End: 11-05-2023 Patient encounter procedure [facility] Phys[facility] Work Phone: Start: 11-05-2023 Non-patient / Non-visit [facility] Physician [facility] Work Phone: Start: 10-01-2023 End: 10-01-2023 Patient encounter procedure DOMINGA PRESLEY [facility] Start: 09-17-2023 Non-patient / Non-visit [facility] Work Phone: Start: 04-03-2023 End: 04-03-2023 ambulatory Theron Mendoza Other [facility] Other Start: 04-03-2023 Telephone encounter Theron Mendoza [facility] Start: 04-02-2023 End: 04-02-2023 ambulatory Theron Mendoza Other [facility] Other Start: 04-02-2023 Office outpatient vi sit 25 minutes Theron Ball [facility] Start: 04-01-2023 End: 04-01-2023 ambulatory Theron Mendoza Other [facility] Other Start: 04-01-2023 Telephone encounter Theron Mendoza [facility] Start: 01-07-2023 End: 01-07-2023 ambulatory Theron Mendoza Other [facility] Other Start: 01-07-2023 Telephone encounter Theron Mendoza [facility] Start: 11-01-2022 End: 11-01-2022 ambulatory Theron Mendoza Other [facility] Other Start: 11-01-2022 Patient encounter procedure Theron Matt [facility] Start: 10-03-2022 End: 10-03-2022 ambulatory Theron Mendoza Other [facility] Other Start: 10-03-2022 Office outpatient vi sit 15 minutes Theron Ball [facility] Start: 10-03-2022 Telephone encounter Theron Mendoza [facility] Start: 04-30-[address] THERON MENDOZA Facili ty:[facility] Start: 03-29-2022 End: 03-30-[address] THERON MENDOZA Facility:[facility] Start: 11-25-2021 End: 11-26-[address] THERON MENDOZA Facility:[facility] Start: 11-24-2021 End: 11-25-[address] THERON MENDOZA Facility:[facility] Start: 11-22-2021 Adult health examination Theron Mendoza Other [facility] [employer] Other Start: 11-20-2021 End: 11-20-2021 Patient encounter procedure Tom ARGUETA [facility] Start: 09-14-2021 End: 09-15-[address] THERON MENDOZA Facility:[facility] Start: 09-10-2017 End: 09-11-2017 Ambulatory DEFAULT PHYSICIAN Facility:[facility] Start: 04-25-2017 End: 04-26-2017 Ambulatory PROVIDER UNKNOWN Facility:[facility] Start: 04-15-2017 End: 04-16-2017 Evaluation and management of inpatient THERON MENDOZA Facility:[facility] Procedures Date Procedure Procedure Detail Performing Clinician Start: 01-01-2024 Colonoscopy Tom STUART Start: 04-08-2018 Cystoscopy Tom STUART Start: 04-15-2017 DILATION OF 2 COR AR T WITH 2 DRUG-ELUT, PERC APPROACH JENNY Leonor TANEL Start: 10-14-2015 General examination of patient Theron [...] Activity Detail Author XR Lumbar spine Views [facility] XR Pelvis 1 or 2 Views [facility] Immunizations Immunization Date Immunization Notes Care Provider Kaden rueda 04-06-2024 influenza, high dose seasonal, preservative-free Theron Mendoza DO Work Phone: [facility] 04-03-2022 influenza virus vaccine, split virus (incl. purified surface antigen) Theron Mendoza Other [facility] [employer] Other 04-03-2022 influenza virus vaccine, unspecified formulation [facility] 04-03-2022 Prevnar 20 Theron Mendoza Other [facility] 03-28-2021 influenza virus vaccine, split virus (incl. purified surface antigen) Theron Mendoza Other [facility] Other 03-28-2021 influenza virus vaccine, unspecified formulation DOMINGA PRESLEY [facility] 04-03-2018 diphtheria, tetanus toxoids and acellular pertussis vaccine, unspecified formulation Theron Mendoza Other [facility] pneumococcal Conjuga te, unspecified formulation; Translations: [Need for prophylactic vaccination against Streptococcus pneumoniae (pneumococcus)] Theron Mendoza Other [facility] Other Payers Date Payer Category Payer Medicare [id number] 2021 Private Health Insurance 2016 Unknown 1959 Medicare [id number] 1959 Private Health Insurance [id number] 1959 Self-pay [id number] 1950 Unknown [id number] 2.16.84 0.1.892357.3.579.2.593 1951 Unknown [id number] 2.16.84 0.1.060667.3.579.2.593 1951 Unknown [id number] 2.16.84 0.1.239314.3.579.2.593 1951 Unknown [id number] 2.16.84 0.1.761479.3.579.2.593 1951 Unknown [id number] 2.16.84 0.1.098314.3.579.2.593 1951 Unknown [id number] 2.16. 840.1.302819.3.579.2.196 1951 Unknown [id number] 2.16. 840.1.849611.3.579.2.196 1951 Unknown [id number] 2.16. 840.1.650246.3.579.2.196 1951 Unknown [id number] 2.16. 840.1.057799.3.579.2.196 1951 Unknown [id number] 2.16. 840.1.530193.3.579.2.196 1951 Unknown [id number] 2.16. 840.1.011375.3.579.2.196 1951 Unknown [id number] 2.16. 840.1.169148.3.579.2.196 1950 Unknown [id number] 2.16.8 40.1.453737.3.579.2.727 1951 Unknown [id number] 2.16.8 40.1.848641.3.579.2.727 1951 Unknown [id number] 2.16.8 40.1.586840.3.579.2.727 1951 Unknown [id number] 2.16.8 40.1.032516.3.579.2.727 1951 Unknown [id number] 2.16.8 40.1.358847.3.579.2.727 1950 Unknown [id number] 2.16.8 40.1.832969.3.579.2.727 Medicare [id number] Social History Date Type Detail Facility Start: 04-10-2021 End: 10-02-2024 Tobacco smoking status Ex-smoker (finding) [facility] Sex Assigned At Male [facility] Tobacco smoking status Never [facility] Start: 11-05-2023 End: 11-05-2024 Tobacco smoking status NHIS Never smoked tobacco (finding) [facility] Start: 1950 Sex Assigned At Male [facility] Sexual Orientation [facility] Start: 10-30-2018 Sex Male (finding) [facility] Medical Equipment Procedure Code Equipment Code Equipment Origin al Text Equipment Identifier Dates BD Pen Needle Sh ort U/F 31G X 8 MM Start: 01-07-2023 Blood Sugar Diagnostic (Onetouch Ultra Test) strip Start: 12-13-2023 Lancets (Onetouc h Delica Plus Lancet) 30 gauge misc Start: 12-13-2023 Pen Needle, Diab etic (Bd Carmen 2nd Gen Pen Needle) 32 gauge x 5/32 needle Start: 03-03-2024 Lancets (Onetouc h Delica Plus Lancet) 30 gauge misc Start: 12-13-2023 End: 12-13-2023 Pen Needle, Diab etic (Bd Carmen 2nd Gen Pen Needle) 32 gauge x 5/32 needle Start: 03-03-2024 End: 03-03-2024 Functional Status Date Assessment Result Facility 12-18-2023 Functional Status N/A [facility] [place] 10-01-2023 Functional Status N/A [facility] 11-20-2021 Functional Status N/A [facility] Clinical Notes 11-20-2021 to 10-02-2024 Note Date & Type Note Facility 10-02-2024 Hospital Discharge instructions Patient Education 10/02/2024 11:15:12 Benign Prostatic Hyperplasia Benign Prostatic Hyperplasia Benign [...] urethra. Follow these instructions at home: Take wypj-ijp-nvrssqg and prescription medicines only as told by [...] provider. Document Revised: 11/01/2021 Document Reviewed: 11/01/2021 [employer] Patient Education 2023 [email or web address]. Follow Up Care 10/01/2023 13:04:47 With:LIZABETH NUÑEZ, Tom Cohen, URL Address: [address] [place], [place] [id number]- When: Unknown [facility] 10-02-2024 Note Patient Education Urology Benign Prostatic Hyperplasia Benign [...] Follow these instructions at home: ??? Take ucmz-jio-gcrivsh and prescription medicines only as told by [...] pain. ??? Your symptoms do not get (more content not included)... [facility] 12-18-2023 Note General Surgery Offi ce/Clinic Note [...] Daily pioglitazone 1 (more content not included)... [facility] Comment on above: Result Comment: Elec [...] urethra. Follow these instructions at home: Take yftr-ipj-ogcpzkm and prescription medicines only as told by [...] provider. Document Revised: 11/01/2021 Document Reviewed: 11/01/2021 [employer] Patient Education 2022 [email or web address]. Follow Up Care 09/17/2022 11:39:15 With:DOMINGA PRESLEY PA-C, URL Address: [address] [place] [id number] When: Unknown [facility] 04-02-2023 Evaluation note Encounter Date Diagnosis Assessment [...] for cerebrovascular and cardiovascular disease. Mar, intermediate card tender (current) use of insulin (ICD-10 - [...] dyspnea, CP or lightheadedness _update office tomorrow [facility] Other 12-04-2023 Evaluation note* Encounter Date Diagnosis Assessment Notes Treatment Notes Treatment Clinical Notes Mar, Primary hypertension (ICD-10 - I10) Mar, Type 2 diabetes mellitus with hyperglycemia (ICD-10 - E11.65) Mar, Mixed hyperlipidemia (ICD-10 - E78.2) Mar, ASHD (arteriosclerotic heart disease) (ICD-10 - I25.10) Mar, High risk medication use (ICD-10 - Z79.899) [facility] Other 09-11-2023 Evaluation note* Encounter Date Diagnosis Assessment Notes Treatment Notes Treatment Clinical Notes Dec, Type 2 diabetes mellitus with hyperglycemia (ICD-10 - E11.65) [facility] Other 07-06-2023 Evaluation note* Encounter Date Diagnosis [...] for cerebrovascular and cardiovascular disease. Oct, intermediate card tender (current) use of insulin (ICD-10 - Z79.4) Oct, Primary hypertension (ICD-10 - I10) This patient is instructed to consume a healthy, low-fat, low-salt diet. They are also encouraged to continue exercise to achieve/maintain a normal BMI. Oct, Screening PSA (prostate specific antigen) (ICD-10 - Z12.5) Completed w/ , normal [facility] Other 06-07-2023 Evaluation note* Encounter Date Diagnosis Assessment Notes Treatment Notes Treatment Clinical Notes Sep, Internal derangement of right knee (ICD-10 - M23.91) Gentle ROM exercises, ice/heat and Tylenol as needed. Avoid NSAIDs due to CAD and CKD. Eric Rios saft to use qid. MRI and referral to Orthopedics for acute swelling and pain of right knee. Sep, Primary hypertension (ICD-10 - I10) This patient is instructed to consume a healthy, low-fat, low-salt diet. They are also encouraged to continue exercise to achieve/maintain a normal BMI. Avoid NSAIDs [facility] Other 07-25-2022 Hospital Discharge instructions Patient Education [...] Follow these instructions at home: Medicines Take zyjz-pka-yffzuuh and prescription medicines only as told by [...] or the blood stops without treatment. Take rmuz-ndd-shfynqd and prescription medicines only as told by your health care provider. Drink enough fluid to keep your urine clear or pale yellow. This information is not intended to replace advice given to you by your health care provider. Make sure you discuss any questions you have with your health care provider. Document Released: 04/15/2006 Document Revised: 09/09/2019 Document Reviewed: 05/18/2017 Elsevier Patient Education 2020 [employer] Follow Up Care 09/21/2021 10:23:43 With:LIZABETH NUÑEZ, Tom Cohen, URL Address: [facility] [address] , [place] [phone] When: Unknown [facility] evaluation + Plan note Future Appointments Appointment Date:11/28/2021 08:45:00 AM Scheduled Provider: Location:[facility] Appointment Type:Urology CALL PAT FT Appointment Date:12/12/2021 10:30:00 AM Scheduled Provider: Location:[facility] Appointment Type:Urology FT Appointment Date:04/13/2022 10:45:00 AM Scheduled Provider:Tom ARGUETA MD Location:[facility] Appointment Type:URO Office Visit [facility] evaluation + Plan note Future Appointments Appointment Date:10/02/2024 10:15:00 AM Scheduled Provider:Tom ARGUETA MD Location:[facility] Appointment Type:URO Office Visit Diagnostic Tests Pending * PSA Total 10/01/23 [facility] evalxrknok + Plan note Future Appointments Appointment Date:10/02/2024 10:15:00 AM Scheduled Provider:Tom ARGUETA MD Location:[facility] Appointment Type:URO Office Visit [facility] evaluation + Plan note Future Appointments Appointment Date:09/24/2025 10:00:00 AM Scheduled Provider: Location:[facility] Appointment Type:URO Nurse Visit Appointment Date:10/01/2025 09:45:00 AM Scheduled Provider:Tom ARGUETA MD Location:[facility] Appointment Type:URO Office Visit Future Scheduled Tests Laboratory* PSA Total 08/27/25 [facility] evaluation noteNo [employer] Other evaluation note* Diagnosis Onset Date Resolution Status Anemia acute ASHD (arteriosclerotic heart disease) acute GERD (gastroesophageal reflux disease) acute Hypercholesterolemia acute Hypertension acute Type 2 diabetes mellitus with hyperglycemia acute Medicare annual wellness visit, subsequent noneactive Screening for colon cancer n oneactive [facility] Work Phone: evaluation note* Diagnosis Onset Date Resolution Status Admit Date Anemia acute November 05 9:55am ASHD (arteriosclerotic heart disease) acute November 05, 2024 9:55am Central stenosis of spinal canal acu te November 05, 2024 9:55am GERD (gastroesophageal reflu x disease) acute November 05, 2024 9:55am Hypercholesterolemia acute November 05, 2024 9:55am Hypertension acute November 05, 2 025 9:55am Screening PSA (prostate spec ific antigen) acute November 05, 2024 9:55am Type 2 diabetes mellitus wit h hyperglycemia acute November 05, 2024 9:55am Medicare annual wellness vis it, subsequent noneactive November 05, 2024 9:55am [facility] Work Phone: History general Narrative - [...] knee 2003 Hospitalization History see surgical history [facility] Other Hospital course Narrative No data available for this section [facility] Hospital Discharge instructions No data available for this section [facility] [place] note No data available for this section [facility] reason for referral (narrative)* Reason Referral for interna l derangement right knee Diagnosis 1 Internal derangement of right knee (M23.91) Referral Organization [facility] Margy durant Referring Provider First [...] Notes MRI right knee to be included [facility] Other Reason for referral (narrative)No reason for referral [facility] Work [facility]: Summary Purpose Family History Relationship Condition Age [...] wellness visit, subsequent Screening for colon cancer Chief Complaint Admit Date Wellness November 05, 2024 9:55 am Reason for Visit Admit Date Anemia November 05, 2024 9:55 am ASHD (arteriosclerotic heart disease) Ju ly 2024 9:55am Central stenosis of spinal canal November 052024 9:55am GERD (gastroesophageal reflux disease) J zaire 2024 9:55am Hypercholesterolemia November 05, 2024 9:5 5am Hypertension November 05, 2024 9:55 am Screening PSA (prostate specific antigen ) November 05, 2024 9:55am Type 2 diabetes mellitus with hyperglyce kleber November 05, 2024 9:55am Medicare annual wellness visit, subseque nt November 05, 2024 9:55am Additional Source Comments (unrecognized sect ion and content) No Status Records FoundNo Status Records FoundNo Status Records FoundNo Status Records FoundNo Status Records Found INFORMATION SOURCE (unrecogn ized section and content) DATE CREATED AUTHOR 10/16/2017 [facility] DATE CREATED AUTHOR AUTHOR'S ORGANIZ ATION 04/04/2019 [facility] DATE CREATED AUTHOR AUTHOR'S ORGANIZ ATION 04/30/2022 [facility] DATE CREATED AUTHOR AUTHOR'S ORGANIZ ATION 05/12/2024 [facility] DATE CREATED AUTHOR AUTHOR'S ORGANIZ ATION 10/04/2024 [facility] Care Team (unrecognized sect ion and [...] November 05, 2023 End: November 05, 2023 Team Status: Active Member Role Status Dates Theron Mendoza , DO Primary Care Provider Active Start: September 25, 2024 Dominga Presley PA-C Attending Provider Active Start: September 25, 2024 Team Status: Active Member Role Status Dates Theron Mendoza , DO Primary Care Provider Active Start: November 03, 2024 Theron Mendoza , DO Attending Provider Active Sta rt: November 03, 2024 Team Status: Inactive Member Role Status Dates Theron Mendoza , DO Primary Care Provider Active Start: November 05, 2024 End: November 05, 2024 Theron Mendoza , DO Attending Provider Active Sta rt: November 05, 2024 End: November 05, 2024 REASON FOR VISIT (unrecogniz ed section and content) Wants in [facility] InformationNo InformationBlood Work?Check UpUpdate Goals (unrecognized [...] BE BASED ON THE PRIMARY CLINICAL RECORDS. [employer] provides no warranty or guarantee of the accuracy or completeness of information in this document.
== END 2024-11-25 13:58 | disposition home or self-care (01) ==
LOC: PM 13:57
PROVIDERS: PCP Internal Medicine; Visit Provider Nurse Practitioner
DX: M47.816 Spondylosis without myelopathy or radiculopathy, lumbar region (principal); M48.062 Spinal stenosis, lumbar region with neurogenic claudication; M79.18 Myalgia, other site
CPT/HCPCS: G0463

== ENCOUNTER 2024-12-07 11:10 | Day surgery (SDC) | payer MEDICARE, OTHER, SELFPAY ==
--- OUTSIDE RECORDS SUMMARY | 2024-12-07 11:12 | XMS_ITS | Encounter Summary ---
Author Organization [facility] Address [address] [facility] [place] [address] Care Team Providers Care Yolk Spray Drier Name Role Phone Theron Lora DO Primary Care Provider [phone] Encounter Details Date Type Department Care Team (Late st Contact Info) Description 2022 Abstract [facility] [address] [place] [address] Ihsan Bradshaw, HARBOUR MASTER [address] [place] [address] Social History Tobacco Use Types Packs/Day Years [...] on filedocumented in this encounter Care Teams Yolk Spray Drier Relationship Specialty Start Date End Date Theron Lora DO PCP - General Internal Medicine 10/16/22 documented as of this encounter
--- OUTSIDE RECORDS SUMMARY | 2024-12-07 11:12 | XMS_ITS | Clinical Summary ---
Author Organization [facility] Address [address] [place], [place] [id number] Care Team Providers Care Jelly Filter Tender Name Role Phone Theron Lora DO Primary Care Provider [phone] Allergies No known active allergies Medications traMADol [...] N ot on file 04/05/2020 Data from: https://www.neighborhoodatlas.[facility]/. Last address used for calculation Not on [...] of 2) 11/13/2001 Diabetes Screening 04/02/2022 04/02/2019 Advance Directive Discussion 04/29/2024 Influenza Vaccine (#1) [...] REMOTE PANEL BL (04/02/2019 12:40 PM EST) Hep B Core Ab, Total Negative Negative 04/03/2019 10:45 AM EST [facility] Hep C Antibody [place] Negative Negative 04/03/2019 10:46 AM EST [facility] HBsAg Negative Negative 04/03/2019 10:45 AM EST [facility] Hep B Surface Ab, Qual Negative Negative 04/03/2019 10:45 AM [facility] Comment:NEGATIVE Blood specimen (specimen) BLOOD SPECIMEN / Unknown 04/02/2019 12:40 PM EST 04/02/2019 12:42 PM EST us Francis Hebert DO LABORATORY Final Res ult [facility] [address] [place] [address] [facility] [address] [place] [address] * (ABNORMAL) COMP METABOLIC PANEL (04/02/2019 12:40 PM EST) Pathologist [facility] Protein, Total 7.4 6.3 - 8.0 g/dL 04/02/2019 1:12 PM EST [facility] Albumin 4.4 3.9 - 4.9 g/dL 04/02/2019 1:12 PM EST [facility] Calcium 9.6 8.5 - 10.2 mg/dL 04/02/2019 1:12 PM EST [facility] Bilirubin, Total 0.6 0.2 - 1.3 mg/dL 04/02/2019 1:12 PM [facility] Alkaline Phosphatase 102 38 - 113 U/L 04/02/2019 1:12 PM EST [facility] AST 31 14 - 40 U/L 04/02/2019 1:12 PM [facility] Glucose 257(H) 74 - 99 mg/dL 04/02/2019 1:12 PM [facility] Comment: The [place] Diabetes Association (ADA) provides guidance for cutoff [...] Standards of Medical Care in Diabetes 2016, [employer] Diabetes Association. Diabetes Care. 2016.39(Suppl 1). BUN 19 9 - 24 mg/dL 04/02/2019 1:12 PM [facility] Creatinine 0.94 0.73 - 1.22 mg/dL 04/02/2019 1:12 PM [facility] Sodium 135(L) 136 - 144 mmol/L 04/02/2019 1:12 PM [facility] Potassium 4.8 3.7 - 5.1 mmol/L 04/02/2019 1:12 PM [facility] Chloride 98 97 - 105 mmol/L 04/02/2019 1:12 PM [facility] CO2 24 22 - 30 mmol/L 04/02/2019 1:12 PM [facility] Anion Gap 13 9 - 18 mmol/L 04/02/2019 1:12 PM [facility] ALT 53 10 - 54 U/L 04/02/2019 1:12 PM [facility] eGFR- >60 04/02/2019 1:12 PM [facility] eGFR-All Other Races >60 . 04/02/2019 1:12 PM [facility] Comment: eGFR (Estimated GFR) Units of measure: [...] 12:40 PM EST 04/02/2019 12:42 PM EST Francis Hebert DO LABORATORY Final Res ult [facility] [address] [place] [address] [facility] [address], [place] from Last 3 Months or Most Recently Relevant to Health Maintenance Insurance MEDICARE MEDICARE ILROAD Care Teams Jelly Filter Tender Relationship Specialty Start Date End Date Theron Lora DO [address] [place] [address] PCP - General Internal Medicine 03/18/19
--- OUTSIDE RECORDS SUMMARY | 2024-12-07 11:12 | XMS_ITS | Clinical Summary ---
Author Organization [facility] Address [address] [place] [address] Care Team Providers Care Compensation And Benefits Manager Name Role Phone Theron Lora Primary Care Provider [phone] Allergies No known active allergies Medications pioglitazone [...] of Treatment Not on [place] [address] [facility] Care Teams Compensation And Benefits Manager Relationship Specialty Start Date End Date Theron Lora DO PCP - General Internal Medicine 10/16/22
[2024-12-07 11:28] VITALS: BP 151/68; PULSE 62; TEMP 36.4; O2SAT 97
[2024-12-07 11:47] VITALS: BP 147/65; PULSE 69; O2SAT 96
[2024-12-07 11:48] VITALS: BP 144/71; PULSE 65; O2SAT 97
[2024-12-07] MEDS: BUPIVACAINE HCL 0.25% PF 25 MG/10 ML VIAL INJ (11:52)
[2024-12-07] MEDS: 0.9 % SODIUM CHLORIDE 10 ML SYRINGE - SALINE FLUSH INJ (11:52)
--- NOTE | 2024-12-07 11:52 | W.PM.PROCNOT ---
Date of procedure: 12/07/24 Pre-op diagnosis: Pain due to lumbar stenosis with neurogenic claudication Post-op diagnosis: same as pre-op Procedure: Procedure: Bilateral L5-S1 transforaminal epidural steroid injection Medications: Bupivacaine 0.25% 2cc, lidocaine 2% 1cc, depomedrol 80mg The patient was seen and examined in the preoperative holding area.? Informed consent was obtained and placed on the chart.? Patient was brought to the medical procedure unit and placed in the prone position where a timeout was completed verifying the correct patient, procedure site, position, and planned special equipment using sterile aseptic technique.? Under direct fluoroscopic visualization a 25-gauge Quincke tipped spinal needle was advanced at level left L5-S1 to the designated neural foramen where contrast dye was injected to show adequate spread.? There was no evidence of vascular or adverse uptake.? Epidural spread was appreciated.? The above-mentioned injectate was then placed in a 1.5 mL aliquot preceded by negative aspiration.? The needle was removed. The same procedure, at the same level, was completed on the opposite side. ? Patient was taken to the postprocedural recovery area and monitored for an appropriate length of time before found suitable for discharge in the accompaniment of a responsible adult. Anesthesia: Local Surgeon: Natali Weir Pathology: none sent Condition: stable Disposition: no change
[2024-12-07] MEDS: METHYLPREDNISOLONE ACETATE 80 MG/ML VIAL INJ (11:53)
[2024-12-07] MEDS: LIDOCAINE HCL 2% 400 MG/20 ML MDV 3 ML INJ (11:53)
[2024-12-07] MEDS: IOHEXOL 240 MG/ML - 10 ML VIAL 24 MG INJ (11:53)
== END 2024-12-07 11:56 | disposition home or self-care (01) ==
LOC: SURGOUT 11:10
PROVIDERS: PCP Internal Medicine; Visit Provider Anesthesiology
DX: M48.062 Spinal stenosis, lumbar region with neurogenic claudication (principal); M54.50 Low back pain, unspecified; E11.8 Type 2 diabetes mellitus with unspecified complications; Z79.85 Long-term (current) use of injectable non-insulin antidiabetic drugs
CPT/HCPCS: 36415; 64483; 82948; J0665; J1010; Q9966

== ENCOUNTER 2024-12-16 13:45 | Outpatient (OUT) | payer MEDICARE, OTHER, SELFPAY ==
--- OUTSIDE RECORDS SUMMARY | 2024-12-16 13:48 | XMS_ITS | Encounter Summary ---
Author Organization [facility] Address [address] [place] [address] Care Team Providers Care Sticker On Name Role Phone Theron Lora DO Primary Care Provider [phone] Source Comments In the event this information is protected by the Federal Confidentiality of Alcohol and Drug AbusePatient Records regulations: The Federal rules restrict any use of the information to criminally investigate or prosecute any alcohol or drug abuse patient.[facility] Encounter Details Date Type Department Care Team [...] on filedocumented in this encounter Care Teams Sticker On Relationship Specialty Start Date End Date Theron Lora DO [address] [place] [address] PCP - General Internal Medicine 03/18/19 documented as of this encounter
--- OUTSIDE RECORDS SUMMARY | 2024-12-16 13:48 | XMS_ITS | Encounter Summary ---
Author Organization [facility] Address [address] [facility] [place] [address] Care Team Providers Care Cloth Spreader Screen Printing Name Role Phone Theron Lora DO Primary Care Provider [phone] Encounter Details Date Type Department Care Team (Late st Contact Info) Description 2022 Abstract [facility] [address] [place] [address] Ihsan Bradshaw, MANAGER PRIMARY [address] [place] [address] Social History Tobacco Use Types [...] on filedocumented in this encounter Care Teams Cloth Spreader Screen Printing Relationship Specialty Start Date End Date Theron Lora DO PCP - General Internal Medicine 10/16/22 documented as of this encounter
--- OUTSIDE RECORDS SUMMARY | 2024-12-16 13:48 | XMS_ITS | Clinical Summary ---
Author Organization [facility] Address [address] [place], [place] [id number] Care Team Providers Care Hydrate Thickener Operator Name Role Phone Theron Lora DO Primary Care Provider [phone] Allergies No known active allergies Medications traMADol [...] N ot on file 04/05/2020 Data from: https://www.neighborhoodatlas.[facility]/. Last address used for calculation Not on [...] Total Negative Negative 04/03/2019 10:45 AM EST [facility] Hep C Antibody IA Negative Negative 04/03/2019 10:46 AM EST [facility] HBsAg Negative Negative 04/03/2019 10:45 AM EST [facility] Hep B Surface Ab, Qual Negative Negative 04/03/2019 10:45 AM [facility] Comment:NEGATIVE Blood specimen (specimen) BLOOD SPECIMEN / Unknown 04/02/2019 12:40 PM EST 04/02/2019 12:42 PM EST us Francis Hebert DO LABORATORY Final Res ult [facility] [address] [place] [address] [facility] [address] [place] [address] * (ABNORMAL) COMP METABOLIC PANEL (04/02/2019 12:40 PM EST) Pathologist [facility] Protein, Total 7.4 6.3 - 8.0 g/dL 04/02/2019 1:12 PM EST [facility] Albumin 4.4 3.9 - 4.9 g/dL 04/02/2019 1:12 PM EST [facility] Calcium 9.6 8.5 - 10.2 mg/dL 04/02/2019 1:12 PM EST [facility] Bilirubin, Total 0.6 0.2 - 1.3 mg/dL 04/02/2019 1:12 PM [facility] Alkaline Phosphatase 102 38 - 113 U/L 04/02/2019 1:12 PM EST [facility] AST 31 14 - 40 U/L 04/02/2019 1:12 PM [facility] Glucose 257(H) 74 - 99 mg/dL 04/02/2019 1:12 PM [facility] Comment: The [place] Diabetes Association (ADA) provides guidance for cutoff [...] Standards of Medical Care in Diabetes 2016, [place] Diabetes Association. Diabetes Care. 2016.39(Suppl 1). BUN 19 9 - 24 mg/dL 04/02/2019 1:12 PM [facility] Creatinine 0.94 0.73 - 1.22 mg/dL 04/02/2019 1:12 PM [facility] Sodium 135(L) 136 - 144 mmol/L 04/02/2019 1:12 PM [facility] Potassium 4.8 3.7 - 5.1 mmol/L 04/02/2019 1:12 PM [facility] Chloride 98 97 - 105 mmol/L 04/02/2019 1:12 PM [facility] CO2 24 22 - 30 mmol/L 04/02/2019 1:12 PM [facility] Anion Gap 13 9 - 18 mmol/L 04/02/2019 1:12 PM [facility] ALT 53 10 - 54 U/L 04/02/2019 1:12 PM [facility] eGFR- >60 04/02/2019 1:12 PM [facility] eGFR-All Other Races >60 . 04/02/2019 1:12 PM [facility] Comment: eGFR (Estimated GFR) Units of [...] Francis Hebert DO LABORATORY Final Res ult [facility] [address] [place] [address] [facility] [address], [place] from Last 3 Months or Most Recently Relevant to Health Maintenance Insurance MEDICARE MEDICARE ILROAD Care Teams Hydrate Thickener Operator Relationship Specialty Start Date End Date Theron Lora DO [address] [place] [address] PCP - General Internal Medicine 03/18/19
--- OUTSIDE RECORDS SUMMARY | 2024-12-16 13:48 | XMS_ITS | Clinical Summary ---
Author Organization [facility] Address [address] [place] [address] Care Team Providers Care Automobile Relocation Engineer Name Role Phone Theron Lora Primary Care Provider [phone] Allergies No known active allergies Medications pioglitazone [...] of Treatment Not on [place] [address] [facility] Care Teams Automobile Relocation Engineer Relationship Specialty Start Date End Date Theron Lora DO PCP - General Internal Medicine 10/16/22
--- OUTSIDE RECORDS SUMMARY | 2024-12-16 14:05 | XMS_ITS | CCD ---
Author Organization [facility] Care Team Providers Care Worm Sorter Name Role Phone THERON MENDOZA Unavailable Unavailable TINO GUNDERSON Unavailable Unavailable [place] SANCHEZ AM Unavailable Unavailable [place] SANCHEZ AM Unavailable Unavailable [place] Unavailable Unavailable UNKNOWN, PROVIDER Unavailable Unavailable UNKNOWN, PROVIDER Unavailable Unavailable UNKNOWN, PROVIDER Unavailable Unavailable MATT, TEHRON Unavailable Unavailable MATT, THERON Unavailable Unavailable PHYSICIAN, DEFAULT Unavailable Unavailable PHYSICIAN, DEFAULT Unavailable Unavailable THERON MENDOZA Unavailable Unavailable THERON MENDOZA Primary Care Physician MATT, DR CRUMP Primary [...] Date of Onset Reaction(s) Facility (1 source) 99044,00; Translations: [78366,00] Propensity to adverse reactions (disorder) 9 [facility] Repository (13 sources) metFORMIN; Translations: [metformin] Drug Allergy Diarrhea (finding) [facility] (3 sources) patient allergy list reviewed by nurse or physicia Propensity to adverse reactions Comment:Done PhoneTell Other (1 source) No Known Medication Allergies; Translations: [No Known Medication Allergies] Propensity to adverse reactions (disorder) [facility] Repository NEGATED: Highlighted row has been ruled out! 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/antip latelets] Onset: 04-15-2017 Episodic Other aftercare (8 sources) Long-term current use of insulin; Translations: [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] Episodic Other aftercare (1 source) 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 Episodic Other gastrointestinal disorders [...] Basophils (Bld) [#/Vol] 0.0 10 3/uL 0.0-0.1 [facility] Basophils/100 WBC Auto (Bld) Ordered By: Theron Mendoza on 11-03-2024 Basophils/100 WBC (Bld) 0.8 % 0.2-2.0 [facility] Cholesterol in LDL Calc [Mas s/Vol]Ordered By: Theron Mendoza on 11-03-2024 Cholesterol in LDL [Mass/Vol] 36.6 mg/dL [facility] Comment on above: <100 mg/dl [id number] 0-129 mg/dl NEAR OR ABOVE [id number] mg/dl BORDERLINE [id number] mg/dl HIGH>190 mg/dl VERY HIGH Cholesterol in VLDL Calc [Ma ss/Vol]Ordered By: Theron Mendoza on 11-03-2024 Cholesterol in VLDL [Mass/Vol] 25.4 mg/dL [facility] Eosinophils/100 WBC Auto (Bl d)Ordered By: Theron Mendoza on 11-03-2024 Eosinophils/100 WBC (Bld) 1.6 % 0.9-7.0 [facility] Erythrocyte distribution wid th Auto (RBC) [Ratio]Ordered By: Theron Mendoza on 11-03-2024 Erythrocyte distribution width (RBC) [Ratio] 14.3 % 11.0-15.0 [facility] Estimated glomerular filtrat ion rate (GFR) non- AmericanOrdered By: Theron Mendoza on 11-03-2024 GFR/1.73 sq M.predicted among non-blacks MDRD (S/P/Bld) [Vol rate/Area] mL/min/{1.73_m2} >=60 mL/min/1.7 3m 2 [facility] Globulin Calc (S) [Mass/Vol] Ordered By: Theron Mendoza on 11-03-2024 Globulin (S) [Mass/Vol] 3.3 g/dL [facility] Glucose mean value [Mass/vol ume] in Blood Estimated from glycated hemoglobinOrdered By: Theron Mendoza on 11-03-2024 Average glucose Estimated from glycated hemoglobin (Bld) [Mass/Vol] 146 mg/dL [facility] Hematocrit Auto (Bld) [Volum e fraction]Ordered By: hTeron Mendoza on 11-03-2024 Hematocrit (Bld) [Volume fraction] 38.3 % Low 42.0-54.0 [facility] Hemoglobin A1c percentageOrd ered By: Theron Mendoza on 11-03-2024 HbA1c (Bld) [Mass fraction] 6.7 % High 4.5-6.2 [facility] Comment on above: ADA RECOMMENDED LIMI T 4.0 - 6.0ADA THERAPEUTIC TARGET < 7.0ACTION SUGGESTED> 7.0 Hemoglobin [Mass/volume] in BloodOrdered By: Theron Mendoza on 11-03-2024 Hemoglobin (Bld) [Mass/Vol] 12.3 g/dL Low 14.0-18.0 [facility] Laboratory - Chemistry and C hemistry - challengeOrdered By: Theron Mendoza on 11-03-2024 Albumin [Mass/Vol] 3.7 g/dL 3.4-5.0 [facility] ALP [Catalytic activity/Vol] 77 U/L 46-116 [facility] ALT [Catalytic activity/Vol] 44 U/L 16-63 [facility] AST [Catalytic activity/Vol] 30 U/L 15-37 [facility] Bilirubin [Mass/Vol] 0.8 mg/dL 0.2-1.0 [facility] Calcium [Mass/Vol] 9.1 mg/dL 8.5-10.1 [facility] Chloride [Moles/Vol] 107 mmol/L 98-107 [facility] Cholesterol [Mass/Vol] 105 mg/dL <=200 [facility] Cholesterol in HDL [Mass/Vol] 43 mg/dL 40-60 [facility] Comment on above: > or =60 mg/dl - LOW CARDIOVASCULAR RISK<40 mg/dl - HIGH CARDIOVASCULAR RISK CO2 [Moles/Vol] 28.4 mmol/L 21.0-32.0 [facility] Creatinine [Mass/Vol] 0.86 mg/dL 0.70-1.30 [facility] GFR/1.73 sq M.predicted MDRD (S/P/Bld) [Vol rate/Area] mL/min/{1.73_m2} >=60 mL/min/1.7 3m 2 [facility] Glucose [Mass/Vol] 116 mg/dL High 74-106 [facility] Potassium [Moles/Vol] 4.2 mmol/L 3.5-5.1 [facility] Protein [Mass/Vol] 7.0 g/dL 6.4-8.2 [facility] Sodium [Moles/Vol] 145 mmol/L 136-145 [facility] Triglyceride [Mass/Vol] 127 mg/dL <=150 [facility] Urea nitrogen [Mass/Vol] 21.0 mg/dL High 7.0-18.0 [facility] Urea nitrogen/Creatinine [Mass ratio] 24.4 mg/mg [facility] Laboratory - Hematology and Cell countsOrdered By: Theron Mendoza on 11-03-2024 Immature granulocytes/100 WBC (Bld) 0.0 % 0.0-0.5 [facility] Leukocytes [#/volume] correc rissa for nucleated erythrocytes in Blood by Automated counOrdered By: Theron Mendoza on 11-03-2024 WBC corrected for nucl RBC Auto (Bld) [#/Vol] 2.5 10 3/uL Low 4.0-11.0 [facility] Lymphocytes Auto (Bld) [#/Vo l]Ordered By: Theron Mendoza on 11-03-2024 Lymphocytes (Bld) [#/Vol] 0.8 10 3/uL Low 1.2-3.8 [facility] Lymphocytes/100 WBC Auto (Bl d)Ordered By: Theron Mendoza on 11-03-2024 Lymphocytes/100 WBC (Bld) 33.1 % 20.5-60.0 [facility] MCH Auto (RBC) [Entitic mass ]Ordered By: Theron Mendoza on 11-03-2024 MCH (RBC) [Entitic mass] 28.9 pg 25.9-34.0 [facility] MCHC Auto (RBC) [Mass/Vol]Or dered By: Theron Mendoza on 11-03-2024 MCHC (RBC) [Mass/Vol] 32.1 g/dL 29.9-35.2 [facility] MCV Auto (RBC) [Entitic vol] Ordered By: Theron Mendoza on 11-03-2024 MCV (RBC) [Entitic vol] 89.9 fL 80.0-94.0 [facility] Microalbumin [Mass/volume] i n UrineOrdered By: Theron Mendoza on 11-03-2024 Albumin DL <= 20 mg/L (U) [Mass/Vol] 3.0 mg/dL <=30.0 [facility] Monocytes Auto (Bld) [#/Vol] Ordered By: Theron Mendoza on 11-03-2024 Monocytes (Bld) [#/Vol] 0.3 10 3/uL 0.3-0.8 [facility] Monocytes/100 WBC Auto (Bld) Ordered By: Theron Mendoza on 11-03-2024 Monocytes/100 WBC (Bld) 10.2 % 1.7-12.0 [facility] Neutrophils Auto (Bld) [#/Vo l]Ordered By: Theron Mendoza on 11-03-2024 Neutrophils (Bld) [#/Vol] 1.4 10 3/uL 1.4-6.5 [facility] Neutrophils/100 WBC Auto (Bl d)Ordered By: Theron Mendoza on 11-03-2024 Neutrophils/100 WBC (Bld) 54.3 % 43.0-75.0 [facility] No Panel InformationOrdered By: Theorn Mendoza on 11-03-2024 Urine Random Creatinine 180.27 mg/dL 20.00-300. 00 [facility] Eosinophils # (Auto) 0.0 10 3/uL 0.0-0.7 [facility] Immature Granulocyte # (Auto) 0.00 10 3/uL 0.00-0.03 [facility] Platelet mean volume Auto (B ld) [Entitic vol]Ordered By: Theron Mendoza on 11-03-2024 Platelet mean volume (Bld) [Entitic vol] 10.6 fL 9.5-13.5 [facility] Platelets Auto (Bld) [#/Vol] Ordered By: Theron Mendoza on 11-03-2024 Platelets (Bld) [#/Vol] 181 10 3/uL 150-450 [facility] RBC Auto (Bld) [#/Vol]Ordere d By: Theron Mendoza on 11-03-2024 RBC (Bld) [#/Vol] 4.26 10 6/uL Low 4.70-6.10 [facility] Serum or plasma albumin/glob ulin mass ratioOrdered By: Theron Mendoza on 11-03-2024 Albumin/Globulin [Mass ratio] 1.1 {ratio} [facility] Serum or plasma anion gap de terminationOrdered By: Theron Mendoza on 11-03-2024 Anion gap [Moles/Vol] 13.8 mmol/L [facility] Serum or plasma total choles terol/high density lipoprotein (HDL) cholesterol mass ratOrdered By: Theron Mendoza on 11-03-2024 Cholesterol.total/Cho lesterol in HDL [Mass ratio] 2.4 {ratio} [facility] Comment on above: 3.3 - 4.4 LOW RISK4. 4 - 7.1 AVERAGE RISK7.1 - 11.0 MODERATE RISK>11.0 HIGH RISK Urine microalbumin/creatinin e mass ratioOrdered By: Theron Mendoza on 11-03-2024 Albumin/Creatinine DL <= 20 mg/L (U) [Mass ratio] 16.6 mg/g 0.0-29.9 [facility] Comment on above: NO MICROALBUMINURIA 0-29 MG/GCLINICAL [...] with LIZABETH NUÑEZ, SANDRA Masters When: Where: [address] [place], [place] [id number]- Medications What How Much When Instructions Unchanged [...] it, the (more content not included)... Normal [facility] Urology Office/Clinic Noteon 10-02-2024 Urology Office/Clinic [...] Information LIZABETH NUÑEZ, Tom Cohen, [address] [place] [address]- Additional Instructions: 1 year w/ PSA Patient [...] Family History (more content not included)... Normal [facility] Comment on above: Result Comment: Elec tronically Signed By: Tom ARGUETA MD\.br\Date and Time Signed: 10/02/24 11:17 EDT\.br\Electronically Co-Signed By: Jennifer Orozco.br\Date and Time Co-Signed: 10/02/24 11:16 EDT No Panel Informationon 09-25 Prostate Specific Antigen Total 2.25 ng/mL <=4.00 [facility] Ambulatory Visit Summaryon 0 12-18-2023 Ambulatory Visit [...] NUÑEZ, Tom Cohen Where: [facility] [place] [address]- Medications What How Much When Instructions Unchanged [...] for choosing us for your care. Normal [facility] Cholesterol in LDL Calc [Mas s/Vol]on 11-05-2023 Cholesterol in LDL [Mass/Vol] 42.0 mg/dL [facility] Comment on above: <100 mg/dl [id number] 0-129 mg/dl NEAR OR ABOVE [id number] mg/dl BORDERLINE [id number] mg/dl HIGH>190 mg/dl VERY HIGH Cholesterol in VLDL Calc [Ma ss/Vol]on 11-05-2023 Cholesterol in VLDL [Mass/Vol] 35.6 mg/dL [facility] Estimated glomerular filtrat ion rate (GFR) non- Americanon 11-05-2023 GFR/1.73 sq M.predicted among non-blacks MDRD (S/P/Bld) [Vol rate/Area] mL/min/{1.73_m2} >=60 [facility] Globulin Calc (S) [Mass/Vol] on 11-05-2023 Globulin (S) [Mass/Vol] 3.3 g/dL [facility] Glucose mean value [Mass/vol ume] in Blood Estimated from glycated hemoglobinon 11-05-2023 Average glucose Estimated from glycated hemoglobin (Bld) [Mass/Vol] 143 mg/dL [facility] Laboratory - Chemistry and C hemistry - challengeon 11-05-2023 Albumin [Mass/Vol] 4.0 g/dL 3.4-5.0 [facility] ALP [Catalytic activity/Vol] 74 U/L 46-116 [facility] ALT [Catalytic activity/Vol] 48 U/L 16-63 [facility] AST [Catalytic activity/Vol] 34 U/L 15-37 [facility] Bilirubin [Mass/Vol] 0.9 mg/dL 0.2-1.0 [facility] Calcium [Mass/Vol] 8.6 mg/dL 8.5-10.1 [facility] Chloride [Moles/Vol] 103 mmol/L 98-107 [facility] Cholesterol [Mass/Vol] 119 mg/dL <=200 [facility] Cholesterol in HDL [Mass/Vol] 42 mg/dL 40-60 [facility] Comment on above: > or =60 mg/dl - LOW CARDIOVASCULAR RISK<40 mg/dl - HIGH CARDIOVASCULAR RISK CO2 [Moles/Vol] 28.3 mmol/L 21.0-32.0 [facility] Creatinine [Mass/Vol] 1.10 mg/dL 0.70-1.30 [facility] GFR/1.73 sq M.predicted MDRD (S/P/Bld) [Vol rate/Area] mL/min/{1.73_m2} >=60 [facility] Glucose [Mass/Vol] 139 mg/dL High 74-106 [facility] Potassium [Moles/Vol] 4.1 mmol/L 3.5-5.1 [facility] Protein [Mass/Vol] 7.3 g/dL 6.4-8.2 [facility] Sodium [Moles/Vol] 141 mmol/L 136-145 [facility] Triglyceride [Mass/Vol] 178 mg/dL High <=150 [facility] Urea nitrogen [Mass/Vol] 21.0 mg/dL High 7.0-18.0 [facility] Urea nitrogen/Creatinine [Mass ratio] 19.1 mg/mg [facility] Laboratory - Hematology and Cell countson 11-05-2023 HbA1c (Bld) [Mass fraction] 6.6 % High 4.5-6.2 [facility] Comment on above: ADA RECOMMENDED LIMI T 4.0 - 6.0ADA THERAPEUTIC TARGET < 7.0ACTION SUGGESTED> 7.0 Microalbumin [Mass/volume] i n Urineon 11-05-2023 Albumin DL <= 20 mg/L (U) [Mass/Vol] 3.4 mg/dL <=30.0 [facility] Serum or plasma albumin/glob ulin mass ratioon 11-05-2023 Albumin/Globulin [Mass ratio] 1.2 {ratio} [facility] Serum or plasma anion gap de terminationon 11-05-2023 Anion gap [Moles/Vol] 13.8 mmol/L [facility] Serum or plasma total choles terol/high density lipoprotein (HDL) cholesterol mass aquiles 11-05-2023 Cholesterol.total/Cho lesterol in HDL [Mass ratio] 2.8 {ratio} [facility] Comment on above: 3.3 - 4.4 LOW RISK4. 4 - 7.1 AVERAGE RISK7.1 - 11.0 MODERATE RISK>11.0 HIGH RISK No Panel Informationon 09-16 Free Prostate Specific Antigen 0.78 ng/mL N/A [facility] Comment on above: Augustina ECLIA methodol ogy. Prostate Specific Antigen Total 1.9 ng/mL 0.0-4.0 [facility] Comment on above: [place] ECLIA methodol ogy.According to the [place] [employer], Serum PSAshould decrease and remain [...] PSA/Total PSA [Mass fraction] 41.1 % . [facility] Comment on above: The table below list s the probability of prostate cancer formen with non-suspicious AYO results and total PSA between4 and 10 ng/mL, by patient age (Lunane et al, JULISSA 1998,279:1542). % Free PSA 50-64 yr 65-75 yr 0.00-10.00% 56% 55% 10.01-15.00% 24% 35% 15.01-20.00% 17% 23% 20.01-25.00% 10% 20% >25.00% 5% 9%Please note: Luanne et al did not make specific recommendations regarding the use of percent free PSA for any other population of men.Performed at: [facility] [id number] Director: Guanakito Cota PhD, Phone: [phone] GLYCOHEMOGLOBIN A1Con 2021 ADA RECOMMENDATION SEE BELOW Normal [facility] Comment on above: Result Comment: ADA RECOMMENDED LIMIT 4.0 - 6.0 ADA THERAPEUTIC TARGET < 7.0 ACTION SUGGESTED > 7.0 Performed By: #### A 1C #### [facility] [address] [place] [address] Dr. Yara Chavez Glucose [Mass/Vol] 166 mg/dL Normal [facility] Comment on above: Performed By: #### A 1C #### [facility] [address] [address] [address] Yara Chavez HbA1c (Bld) [Mass fraction] 7.4 % Critically high 4.5-6.2 [facility] Comment on above: Performed By: #### A 1C #### [facility] [address] [place] [address] ABD/PELV W CONon [...] PARAS SOMMERS Date: 2021-11-26 02:01 Normal [facility] CBC AUTO DIFFon 11-24-2021 BASO # 0.0 103/ul Normal 0.0-0.1 [facility] Comment on above: Performed By: #### C BC #### [facility] [address] [address] [address] Yara Chavez Basophils/100 WBC (Bld) 0.7 % Normal 0.2-2.0 [facility] Comment on above: Performed By: #### C BC #### [facility] [address] [place] [address] Dr. Yara Chavez EO # 0.0 103/ul Normal 0.0-0.7 [facility] Comment on above: Performed By: #### C BC #### [facility] [address] [place] [address] Dr. Yara Chavez Eosinophils/100 WBC (Bld) 1.0 % Normal 0.9-7.0 [facility] Comment on above: Performed By: #### C BC #### [facility] [address] [place] [address] Dr. Yara Chavez Erythrocyte distribution width (RBC) [Ratio] 14.7 % Normal 11.0-15.0 [facility] Comment on above: Performed By: #### C BC #### [facility] [address] [place] [address] Dr. Yara Chavez Hematocrit (Bld) [Volume fraction] 38.7 % Critically low 42.0-54.0 [facility] Comment on above: Performed By: #### C BC #### [facility] [address] [place] [address] Dr. Yara Chavez Hemoglobin (Bld) [Mass/Vol] 12.3 g/dL Critically low 14.0-18.0 [facility] Comment on above: Performed By: #### C BC #### [facility] [address] [place] [address] Dr. Yara Chavez IG # 0.01 10e3/ul Normal 0.00-0.03 [facility] Comment on above: Performed By: #### C BC #### [facility] [address] [place] [address] Dr. Yara Chavez IG % 0.3 % Normal 0.0-0.5 [facility] Comment on above: Performed By: #### C BC #### [facility] [address] [place] [address] Dr. Yara Chavez LYMPH # 1.1 103/ul Critically low 1.2-3.8 [facility] Comment on above: Performed By: #### C BC #### [facility] [address] [place] [address] Dr. Yara Chavez Lymphocytes/100 WBC (Bld) 36.1 % Normal 20.5-60.0 [facility] Comment on above: Performed By: #### C BC #### [facility] [address] [place] [address] Dr. Yara Chavez MANUAL DIFF REQ NO Normal [facility] Comment on above: Performed By: #### C BC #### [facility] [address] [place] [address] Dr. Yara Chavez MCH (RBC) [Entitic mass] 28.0 pg Normal 25.9-34.0 [facility] Comment on above: Performed By: #### C BC #### [facility] [address] [place] [address] Dr. Yara Chavez MCHC (RBC) [Mass/Vol] 31.8 g/dL Normal 29.9-35.2 [facility] Comment on above: Performed By: #### C BC #### [facility] [address] [place] [address] Dr. Yara Chavez MCV (RBC) [Entitic vol] 88.2 fL Normal 80.0-94.0 [facility] Comment on above: Performed By: #### C BC #### [facility] [address] [place] [address] Dr. Yara Chavez MONO # 0.3 103/ul Normal 0.3-0.8 [facility] Comment on above: Performed By: #### C BC #### [facility] [address] [place] [address] Dr. Yara Chavez Monocytes/100 WBC (Bld) 9.5 % Normal 1.7-12.0 [facility] Comment on above: Performed By: #### C BC #### [facility] [address] [place] [address] Dr. Yara Chavez NEUT # 1.5 103/ul Normal 1.4-6.5 [facility] Comment on above: Performed By: #### C BC #### [facility] [address] [place] [address] Dr. Yara Chavez Neutrophils/100 WBC (Bld) 52.4 % Normal 43.0-75.0 [facility] Comment on above: Performed By: #### C BC #### [facility] [address] [place] [address] Dr. Yara Chavez Platelet mean volume (Bld) [Entitic vol] 10.1 fL Normal 9.5-13.5 [facility] Comment on above: Performed By: #### C BC #### [facility] [address] [place] [address] Dr. Yara Chavez PLT 195 103/ul Normal 150-450 [facility] Comment on above: Performed By: #### C BC #### [facility] [address] [place] [address] Dr. Yara Chavez RBC 4.39 106/ul Critically low 4.70-6.10 [facility] Comment on above: Performed By: #### C BC #### [facility] [address] [place] [address] Dr. Yara Chavez WBC 2.9 103/ul Critically low 4.0-11.0 [facility] Comment on above: Performed By: #### C BC #### [facility] [address] [place] [address] Dr. Yara Chavez LIPID PROFILEon 11-24-2021 CHOL-HDL RATIO NORM SEE BELOW Normal [facility] Comment on above: Result Comment: 3.3 - 4.4 LOW RISK 4.4 - 7.1 AVERAGE RISK 7.1 - 11.0 MODERATE RISK >11.0 HIGH RISK Performed By: #### A LT, BMP, LIPID #### [facility] [address] [place] [address] Dr. Yara Chavez Cholesterol [Mass/Vol] 124 mg/dL Normal <=200 [facility] Comment on above: Performed By: #### A LT, BMP, LIPID #### [facility] [address] [address] [address] Yara Chavez Cholesterol in HDL [Mass/Vol] 41 mg/dL Normal 40-60 [facility] Comment on above: Performed By: #### A LT, BMP, LIPID #### [facility] [address] [address] [address] Yara Chavez Cholesterol in LDL [Mass/Vol] 56.8 mg/dL Normal [facility] Comment on above: Performed By: #### A LT, BMP, LIPID #### [facility] [address] [address] [address] Yara Chavez Cholesterol.total/Cho lesterol in HDL [Mass ratio] 3.0 {ratio} Normal [facility] Comment on above: Performed By: #### A LT, BMP, LIPID #### [facility] [address] [place] [address] Dr. Yara Chavez HDL NORMAL > or = 60 mg/dl - LO W CARDIOVASCULAR RISK <40 mg/dl - HIGH CARDIOVASCULAR RISK Normal [facility] Comment on above: Performed By: #### A LT, BMP, LIPID #### [facility] [address] [address] [address] Yara Chavez LDL CALC NORMAL SEE BELOW Normal [facility] Comment on above: Result Comment: <100 mg/dl OPTIMAL 100 - 129 mg/dl NEAR OR ABOVE OPTIMAL 130 - 159 mg/dl BORDERLINE HIGH 160 - 189 mg/dl HIGH >190 mg/dl VERY HIGH Performed By: #### A LT, BMP, LIPID #### [facility] [address] [address] [address] Yara Chavez Triglyceride [Mass/Vol] 131 mg/dL Normal <=150 [facility] Comment on above: Performed By: #### A LT, BMP, LIPID #### [facility] [address] [address] [address] Yara Chavez VLDL CALC 26.2 mg/dL Normal [facility] Comment on above: Performed By: #### A LT, BMP, LIPID #### [facility] [address] [address] [address] Yara Chavez MICROALBUMIN, RAND URon 07- mALB 1.4 mg/L Normal <=30.0 [facility] Comment on above: Performed By: #### M ALBR #### [facility] [address] [place] [address] Dr. Yara Chavez PROF CHEM 8 (BAS METB)on Anion gap [Moles/Vol] 10.1 mmol/L Normal [facility] Comment on above: Performed By: #### A LT, BMP, LIPID #### [facility] [address] [place] [address] Dr. Yara Chavez Calcium [Mass/Vol] 9.0 mg/dL Normal 8.5-10.1 [facility] Comment on above: Performed By: #### A LT, BMP, LIPID #### [facility] [address] [place] [address] Dr. Yara Chavez Chloride [Moles/Vol] 105 mmol/L Normal 98-107 [facility] Comment on above: Performed By: #### A LT, BMP, LIPID #### [facility] [address] [place] [address] Dr. Yara Chavez CO2 [Moles/Vol] 31.3 mmol/L Normal 21.0-32.0 [facility] Comment on above: Performed By: #### A LT, BMP, LIPID #### [facility] [address] [place] [address] Dr. Yara Chavez Creatinine [Mass/Vol] 1.24 mg/dL Normal 0.70-1.30 [facility] Comment on above: Performed By: #### A LT, BMP, LIPID #### [facility] [address] [place] [address] Dr. Yara Chavez EGFR-AF IRISH >60 Normal >=60 [facility] Comment on above: Performed By: #### A LT, BMP, LIPID #### [facility] [address] [place] [address] Dr. Yara Chavez EGFR-NON AF IRISH 58 mL/min/1.73m2 Critically low >=60 [facility] Comment on above: Performed By: #### A LT, BMP, LIPID #### [facility] [address] [address] [address] Yara Chavez Glucose [Mass/Vol] 102 mg/dL Normal 74-106 [facility] Comment on above: Performed By: #### A LT, BMP, LIPID #### [facility] [address] [place] [address] Dr. Yara Chavez Potassium [Moles/Vol] 4.4 mmol/L Normal 3.5-5.1 [facility] Comment on above: Performed By: #### A LT, BMP, LIPID #### [facility] [address] [place] [address] Dr. Yara Chavez Sodium [Moles/Vol] 142 mmol/L Normal 136-145 [facility] Comment on above: Performed By: #### A LT, BMP, LIPID #### [facility] [address] [place] [address] Dr. Yara Chavez Urea nitrogen [Mass/Vol] 22.0 mg/dL Critically high 7.0-18.0 [facility] Comment on above: Performed By: #### A LT, BMP, LIPID #### [facility] [address] [place] [address] Dr. Yara Chavez Urea nitrogen/Creatinine [Mass ratio] 17.7 mg/mg Normal [facility] Comment on above: Performed By: #### A LT, BMP, LIPID #### [facility] [address] [place] [address] Dr. Yara Chavez [facility] 11-24-2021 ALT [Catalytic activity/Vol] 48 U/L Normal 16-63 [facility] Comment on above: Performed By: #### A LT, BMP, LIPID #### [facility] [address] [place] [address] Dr. Yara Chavez GLYCOHEMOGLOBIN A1Con 2021 ADA RECOMMENDATION SEE BELOW Normal [facility] Comment on above: Result Comment: ADA RECOMMENDED LIMIT 4.0 - 6.0 ADA THERAPEUTIC TARGET < 7.0 ACTION SUGGESTED > 7.0 Performed By: #### A 1C #### [facility] [address] [place] [address] Dr. Yara Chavez Glucose [Mass/Vol] 169 mg/dL Normal [facility] Comment on above: Performed By: #### A 1C #### [facility] [address] [place] [address] Dr. Yara Chavez HbA1c (Bld) [Mass fraction] 7.5 % Critically high 4.5-6.2 [facility] Comment on above: Performed By: #### A 1C #### [facility] [address] [place] [address] Dr. Yara Chavez PROF CHEM 8 (BAS METB)on Anion gap [Moles/Vol] 12.0 mmol/L Normal [facility] Comment on above: Performed By: #### B MP #### [facility] [address] [place] [address] Dr. Yara Chavez Calcium [Mass/Vol] 8.7 mg/dL Normal 8.5-10.1 [facility] Comment on above: Performed By: #### B MP #### [facility] [address] [place] [address] Dr. Yara Chavez Chloride [Moles/Vol] 103 mmol/L Normal 98-107 [facility] Comment on above: Performed By: #### B MP #### [facility] [address] [place] [address] Dr. Yara Chavez CO2 [Moles/Vol] 29.1 mmol/L Normal 21.0-32.0 [facility] Comment on above: Performed By: #### B MP #### [facility] [address] [place] [address] Dr. Yara Chavez Creatinine [Mass/Vol] 1.17 mg/dL Normal 0.70-1.30 [facility] Comment on above: Performed By: #### B MP #### [facility] [address] [place] [address] Dr. Yara Chavez EGFR-AF IRISH >60 Normal >=60 [facility] Comment on above: Performed By: #### B MP #### [facility] [address] [place] [address] Dr. Yara Chavez EGFR-NON AF IRISH >60 Normal >=60 [facility] Comment on above: Performed By: #### B MP #### [facility] [address] [address] [address] Yara Chavez Glucose [Mass/Vol] 144 mg/dL Critically high 74-106 [facility] Comment on above: Performed By: #### B MP #### [facility] [address] [address] [address] Yara Chavez Potassium [Moles/Vol] 4.1 mmol/L Normal 3.5-5.1 [facility] Comment on above: Performed By: #### B MP #### [facility] [address] [address] [address] Yara Chavez Sodium [Moles/Vol] 140 mmol/L Normal 136-145 [facility] Comment on above: Performed By: #### B MP #### [facility] [address] [address] [address] Yara Chavez Urea nitrogen [Mass/Vol] 18.0 mg/dL Normal 7.0-18.0 [facility] Comment on above: Performed By: #### B MP #### [facility] [address] [address] [address] Yara Chavez Urea nitrogen/Creatinine [Mass ratio] 15.4 mg/mg Normal [facility] Comment on above: Performed By: #### B MP #### [facility] [address] [address] [address] Yara ECHEVERRIAOVSPon 04-02-2019 OVS Visit (SP) Office (H EMASA) LISA LUGO ([id number]) 1950 Date Time Provider Department 04/02/19 11:15 THAIS WELLINGTON During your visit today, we recorded the following information about you: Temperature Pulse Respiration Blood pressure 98.1 degrees 72/minute 16/minute 131/69 Weight Height 80.5 kg 1.778 m Thais Hebert DO 04/03/2019 1:15 PM Signed PATIENT NAME: Lisa Lugo REFERRING PHYSICIAN: Theron Mendoza MD ([facility]) [address] [address] PRIMARY CARE PHYSICIAN: Theron Mendoza MD CHIEF [...] PANEL - CBC + DIFF (FOR REMOTE [facility] USE) - IRON + TIBC - FERRITIN BLD - VITAMIN B12 BLOOD - FOLATE SERUM - METHYLMALONIC ACID - HEP REMOTE PANEL BL - SED RATE [facility] Return labs today. f/u 6 mos. [...] questions satisfactorily.. Francois Hebert D.O. Medical Oncologist [place], [place] Referring Provider: THERON MENDOZA [[id number]] Allergies As of Date: 04/02/2019 (No Known Allergies) Date Reviewed: 04/02/2019 Reviewed by: Dorene Germain - Fully Assessed Reason for Visit: abdnormal lab [Other] Cmt: new patient consultation Primary Visit Diagnosis:Leukopenia, unspecified type [D72.819] Other Visit Diagnosis:Abnormal finding of blood chemistry, unspecified [R79.9] Order(s):PROTEIN ELECTROPHORESIS W/INTERP [SQSEPG] Order #: [id number] FUTURE MONOCLONAL PROTEIN, SERUM (BLOOD) [SQSERMPA] Order #: [id number] FUTURE IMMUNOGLOBULINS SHANIA [SQSERIMM] Order #: [id number] FUTURE LD LACTATE DEHYDRO [SQLD6] Order #: [id number] FUTURE COMP METABOLIC PANEL [SQCMP] Order #: [id number] FUTURE CBC + DIFF (FOR REMOTE C USE) [SQRCBCDF] Order #: [id number] FUTURE IRON + TIBC [SQIRON] Order #: [id number] FUTURE FERRITIN BLD [SQFERR] Order #: [id number] FUTURE VITAMIN B12 BLOOD [SQB12] Order #: [id number] FUTURE FOLATE SERUM [SQSERFOL] Order #: [id number] FUTURE METHYLMALONIC ACID [SQMMA] Order #: [id number] FUTURE HEP REMOTE PANEL BL [SQHREMOP] Order #: [id number] FUTURE SED RATE WESTERGREN [SQWSR] Order #: [id number] FUTURE Disposition: Return labs today. f/u 6 [...] by THAIS HEBERT DO on 04/03/19 Normal [facility] Comp Metabolic Panelon 04-02 Albumin [Mass/Vol] 4.4 g/dL Normal 3.9-4.9 [facility] ALP [Catalytic activity/Vol] 102 U/L Normal 38-113 [facility] ALT [Catalytic activity/Vol] 53 U/L Normal 10-54 [facility] Anion gap [Moles/Vol] 13 mmol/L Normal 9-18 [facility] AST [Catalytic activity/Vol] 31 U/L Normal 14-40 [facility] Bilirubin [Mass/Vol] 0.6 mg/dL Normal 0.2-1.3 [facility] Calcium [Mass/Vol] 9.6 mg/dL Normal 8.5-10.2 [facility] Chloride [Moles/Vol] 98 mmol/L Normal 97-105 [facility] CO2 [Moles/Vol] 24 mmol/L Normal 22-30 [facility] Creatinine [Mass/Vol] 0.94 mg/dL Normal 0.73-1.22 [facility] eGFR- Amer. >60 Normal [facility] GFR/1.73 sq M predicted among non-blacks MDRD (S/P/Bld) [Vol rate/Area] mL/min/{1.73_m2} Normal [facility] Comment on above: [...] GFR. Glucose [Mass/Vol] 257 mg/dL High 74-99 [facility] Comment on above: Result Comment: The [place] Diabetes Association (ADA) provides guidance for cutoff [...] Standards of Medical Care in Diabetes 2016, [place] [employer]. Diabetes Care. 2016.39(Suppl 1). Potassium [Moles/Vol] 4.8 mmol/L Normal 3.7-5.1 [facility] Protein [Mass/Vol] 7.4 g/dL Normal 6.3-8.0 [facility] Sodium [Moles/Vol] 135 mmol/L Low 136-144 [facility] Urea nitrogen [Mass/Vol] 19 mg/dL Normal 9-24 [facility] Ferritinon 04-02-2019 Ferritin [Mass/Vol] 279.0 ng/mL Normal 30.3-565.7 [facility] Comment on above: Performed By: #### W SR, B12, SERFOL, IRON, FERR, SERIMM, HREMOP, SERMPA, SEPG, MMA #### [facility] [address] [place], [place] [address] Folate, Serumon 04-02-2019 Folate [Mass/Vol] ng/mL Normal >4.7 [facility] Comment on above: Result Comment: A re sult of > 20 ng/mL is not necessarily indicative of a pathologic or treatable condition: it reflects a limitation of the test methodology. Assay reference range: 4.8 to 24.2 ng/mL. Suitable for detection of folate deficiency. Reference: Folate III (Folate III) [package insert V 2.0 Slovenian]. [facility], [place], [place]: February 2015. Performed By: #### W SR, B12, SERFOL, IRON, FERR, SERIMM, HREMOP, SERMPA, SEPG, MMA #### [address] [phone] Hepatitis Remote Panelon HBsAg Negative Normal Negative [facility] Comment on above: Performed By: #### W SR, B12, SERFOL, IRON, FERR, SERIMM, HREMOP, SERMPA, SEPG, MMA #### [address] [phone] Hep B Core Ab,Total Negative Normal Negative [facility] Comment on above: Performed By: #### W SR, B12, SERFOL, IRON, FERR, SERIMM, HREMOP, SERMPA, SEPG, MMA #### [address] [phone] Hepatitis C Ab IA Negative Normal Negative [facility] Comment on above: Performed By: #### W SR, B12, SERFOL, IRON, FERR, SERIMM, HREMOP, SERMPA, SEPG, MMA #### [address] [phone] HepB Surface Ab,Qual Negative Normal Negative [facility] Comment on above: Result Comment: NEGA TIVE Performed By: #### W SR, B12, SERFOL, IRON, FERR, SERIMM, HREMOP, SERMPA, SEPG, MMA #### [address] [phone] Immunoglobulins GAMon 2018 IgA [Mass/Vol] 323 mg/dL Normal 78-391 [facility] Comment on above: Performed By: #### W SR, B12, SERFOL, IRON, FERR, SERIMM, HREMOP, SERMPA, SEPG, MMA #### [id number] [address] IgG [Mass/Vol] 981 mg/dL Normal 717-1411 [facility] Comment on above: Performed By: #### W SR, B12, SERFOL, IRON, FERR, SERIMM, HREMOP, SERMPA, SEPG, MMA #### [address] [phone] IgM [Mass/Vol] 133 mg/dL Normal 53-334 [facility] Comment on above: Performed By: #### W SR, B12, SERFOL, IRON, FERR, SERIMM, HREMOP, SERMPA, SEPG, MMA #### [address] [phone] Iron and TIBCon 04-02-2019 Iron [Mass/Vol] 80 ug/dL Normal 41-186 [facility] Comment on above: Performed By: #### W SR, B12, SERFOL, IRON, FERR, SERIMM, HREMOP, SERMPA, SEPG, MMA #### [address] [phone] TIBC 247 ug/dL Normal 232-386 [facility] Comment on above: Performed By: #### W SR, B12, SERFOL, IRON, FERR, SERIMM, HREMOP, SERMPA, SEPG, MMA #### [address] [phone] Transferrin Saturatn 32 % Normal 15-57 [facility] Comment on above: Performed By: #### W SR, B12, SERFOL, IRON, FERR, SERIMM, HREMOP, SERMPA, SEPG, MMA #### [address] [phone] LDon 04-02-2019 LD 131 U/L Low 135-225 [facility] Comment on above: Performed By: #### W SR, B12, SERFOL, IRON, FERR, SERIMM, HREMOP, SERMPA, SEPG, MMA #### [facility] [address] [address] Methylmalonic Acidon 019 Methylmalonic Acid 232 nmol/L Normal 79-376 [facility] Comment on above: Result Comment: This test was developed and its performance characteristics determined by [facility]'s [facility] [place] ([facility]). It has not been cleared or approved by the FDA. [facility] is regulated under CLIA as qualified to perform high complexity testing. This test is used for clinical purposes. It should not be regarded as investigational or for research. Performed By: #### W SR, B12, SERFOL, IRON, FERR, SERIMM, HREMOP, SERMPA, SEPG, MMA ####[facility] [place], [place] [phone] Monclnl Protein, Seron 04-02 K/L Ratio, Serum 1.88 High 0.26-1.65 [facility] Comment on above: Performed By: #### W SR, B12, SERFOL, IRON, FERR, SERIMM, HREMOP, SERMPA, SEPG, MMA ####[facility] [place], [place] [phone] [place], Free, Serum 47.1 mg/L High 3.30-19.40 [facility] Comment on above: Result Comment: Test performed by an immunoturbidimetric assay on [employer] instrument from [facility]. Immunoglobulin free light chain assay results should be interpreted in conjunction with other tests and in correlation with clinical picture. Performed By: #### W SR, B12, SERFOL, IRON, FERR, SERIMM, HREMOP, SERMPA, SEPG, MMA ####[address] [address] [phone] Lambda, Free, Serum 25.0 mg/L Normal 5.7-26.3 [facility] Comment on above: Result Comment: Test performed by an immunoturbidimetric assay on Cyphomalite instrument from [facility]. Immunoglobulin free light chain assay results should be interpreted in conjunction with other tests and in correlation with clinical picture. Performed By: #### W SR, B12, SERFOL, IRON, FERR, SERIMM, HREMOP, SERMPA, SEPG, MMA ####[address] [address] [address] [phone] [facility] [[email or web address]] Serum IgA 336 mg/dL Normal 78-391 [facility] Comment on above: Performed By: #### W SR, B12, SERFOL, IRON, FERR, SERIMM, HREMOP, SERMPA, SEPG, MMA ####[address] [address] [phone] [facility] [[email or web address]] Serum IgG 950 mg/dL Normal 717-1411 [facility] Comment on above: Performed By: #### W SR, B12, SERFOL, IRON, FERR, SERIMM, HREMOP, SERMPA, SEPG, MMA ####[address] [address] [phone] MPA Serum IgM 136 mg/dL Normal 53-334 [facility] Comment on above: Performed By: #### W SR, B12, SERFOL, IRON, FERR, SERIMM, HREMOP, SERMPA, SEPG, MMA ####[address] [address] [phone] Protein [Mass/Vol] No M protein is identified. Normal No M protein is identified . [facility] Comment on above: Performed By: #### W SR, B12, SERFOL, IRON, FERR, SERIMM, HREMOP, SERMPA, SEPG, MMA ####[address] [place], [place] [phone] Staff Review Reviewed by Chadd Ackerman MD ([id number]) Normal [facility] Comment on above: Performed By: #### W SR, B12, SERFOL, IRON, FERR, SERIMM, HREMOP, SERMPA, SEPG, MMA ####[facility] [address] [place], [place] [phone] PROGRESSon 04-02-2019 PROGRESS HNO ID: [id number] Author: Thais Agrawal Rjdomoniqueame Service: ? Author Type: Physician Type: Progress Notes Filed: 04/03/2019 1:15 PM Note Text: PATIENT NAME: Lisa Lugo REFERRING PHYSICIAN: Theron Mendoza MD ([facility]) [address] [address] PRIMARY CARE PHYSICIAN: Theron Mendoza MD CHIEF [...] PANEL - CBC + DIFF (FOR REMOTE [facility] USE) - IRON + TIBC - [...] questions satisfactorily.. Francois Hebert D.O. Medical Oncologist [place], [place] Normal [facility] Protein Electrophor.on 04-02 Albumin [Mass/Vol] 3.79 g/dL Normal 3.37-4.23 [facility] Comment on above: Performed By: #### W SR, B12, SERFOL, IRON, FERR, SERIMM, HREMOP, SERMPA, SEPG, MMA ####[facility] [place], [place] [phone] Alpha 1 Globulin 0.31 gm/dL Normal 0.18-0.31 [facility] Comment on above: Performed By: #### W SR, B12, SERFOL, IRON, FERR, SERIMM, HREMOP, SERMPA, SEPG, MMA ####[facility] [place], [place] [phone] Alpha 2 Globulin 0.96 gm/dL Normal 0.52-0.97 [facility] Comment on above: Performed By: #### W SR, B12, SERFOL, IRON, FERR, SERIMM, HREMOP, SERMPA, SEPG, MMA ####[facility] [address] [place] [phone] Beta Globulin 1.17 gm/dL Normal 0.84-1.36 [facility] Comment on above: Performed By: #### W SR, B12, SERFOL, IRON, FERR, SERIMM, HREMOP, SERMPA, SEPG, MMA ####[place] [phone] [phone] Gamma Globulin 0.97 gm/dL Normal 0.70-1.44 [facility] Comment on above: Performed By: #### W SR, B12, SERFOL, IRON, FERR, SERIMM, HREMOP, SERMPA, SEPG, MMA ####[place] [address] [address] [phone] Interpretation SEE COMMENT Normal [facility] Comment on above: Result Comment: No d efinitive M protein is identified on protein electrophoresis. Performed By: #### W SR, B12, SERFOL, IRON, FERR, SERIMM, HREMOP, SERMPA, SEPG, MMA ####[place] [address] [phone] M Guy Concentratn 0.00 gm/dL Normal 0.00 [facility] Comment on above: Performed By: #### W SR, B12, SERFOL, IRON, FERR, SERIMM, HREMOP, SERMPA, SEPG, MMA ####[place] [address] [phone] Protein [Mass/Vol] 7.2 g/dL Normal 6.0-8.4 [facility] Comment on above: Performed By: #### W SR, B12, SERFOL, IRON, FERR, SERIMM, HREMOP, SERMPA, SEPG, MMA ####[place] [phone] [phone] Protein [Mass/Vol] N/A Normal [facility] Comment on above: Performed By: #### W SR, B12, SERFOL, IRON, FERR, SERIMM, HREMOP, SERMPA, SEPG, MMA ####[facility] [address] [place], [place] [phone] SPE Staff Review Reviewed by Chadd Ackerman MD ([id number]) Normal [facility] Comment on above: Performed By: #### W SR, B12, SERFOL, IRON, FERR, SERIMM, HREMOP, SERMPA, SEPG, MMA ####[facility] [address] [place], [place] [phone] Remote CBCDIF (for [facility] use o nly)on 04-02-2019 Abs Baso <0.03 Normal 0.00-0.10 [facility] Abs [place]azoo 0.48 k/uL Normal 0.00-0.86 [facility] Abs Neut 4.30 k/uL Normal 1.45-7.50 [facility] Basophils/100 WBC (Bld) 0.2 % Normal [facility] Eosinophils (Bld) [#/Vol] 0.04 10*3/uL Normal 0.00-0.45 [facility] Eosinophils/100 WBC (Bld) 0.7 % Normal [facility] Erythrocyte distribution width (RBC) [Ratio] 13.9 % Normal 11.5-15.0 [facility] Hematocrit (Bld) [Volume fraction] 39.6 % Normal 39.0-51.0 [facility] Hemoglobin (Bld) [Mass/Vol] 12.6 g/dL Low 13.0-17.0 [facility] Lymphocytes (Bld) [#/Vol] 0.84 10*3/uL Low 1.00-4.00 [facility] Lymphocytes/100 WBC (Bld) 14.8 % Normal [facility] MCH (RBC) [Entitic mass] 27.4 pG Normal 26.0-34.0 [facility] MCHC (RBC) [Mass/Vol] 31.8 g/dL Normal 30.5-36.0 [facility] MCV (RBC) [Entitic vol] 86.1 fL Normal 80.0-100.0 [facility] Monocytes/100 WBC (Bld) 8.5 % Normal [facility] Neutrophils/100 WBC (Bld) 75.8 % Normal [facility] Platelet mean volume (Bld) [Entitic vol] 9.7 fL Normal 9.0-12.7 [facility] Platelets (Bld) [#/Vol] 243 10*3/uL Normal 150-400 [facility] RBC (Bld) [#/Vol] 4.60 10*6/uL Normal 4.20-6.00 [facility] WBC (Bld) [#/Vol] 5.67 10*3/uL Normal 3.70-11.00 [facility] Sed Rate Westergrenon 2018 Sed Rate Westergren 41 mm/hr High 0-15 [facility] Comment on above: Performed By: #### W SR, B12, SERFOL, IRON, FERR, SERIMM, HREMOP, SERMPA, SEPG, MMA #### [facility] [employer] [address] [phone] Vitamin B12on 04-02-2019 Cobalamin (Vitamin B12) [Mass/Vol] 595 pg/mL Normal 232-1245 [facility] Comment on above: Performed By: #### W SR, B12, SERFOL, IRON, FERR, SERIMM, HREMOP, SERMPA, SEPG, MMA #### [facility] [employer] [address] [place] [address] Cardiovascular Lab Reporton 04-26-2017 Cardiovascular Lab Report [facility] Patient Name: Lisa Lugo [facility] MR #: [id number] Physician: Jenny Parsons M.D.Medicine Service Date: 04/25/2017Division of Birthdate: 2Cardiology Room #: 3CD [id number] CardiovascularServicesUn[address] [address]Vsmol Fax Cardiovascular Laboratory ReportINDICATION: Mr. Lisa Lugo [...] that time, he was found to have tvre-irfeskj-opusp restenosis in the mid LAD. He is [...] angiography was performedfollowed by upsizing to a 6-Emirati x 11 cm sheath. Heparin wasadministered intravenously and therapeutic ACT confirmed during theprocedure. A 6-Emirati XB 3.5 guiding catheter was advanced and [...] the Prowater wire.Angiography was performed. [employer] [place] 2.5 x 15 mm noncompliantballoon was then [...] 04/25/2017/09:47 A/Jenny Foster M.D.Date Trans: 04/26/2017 02:28 A/Kehinde_JN:[id number]: Theron Mendoza D.O. [address] [place] [phone] Normal [facility] POC GLUCOSE LABon 04-26-2017 Glucose mass conc 99 mg/dL Normal 70-100 [facility] Comment on above: Performed By: #### 5 0608 ####[facility] CBC COMPLETE BLOOD COUNTon 06-26-2016 Erythrocyte distribution width Auto Ratio (RBC) 14.3 % Normal 11.5-16.9 [facility] Comment on above: Order Comment: Yes: Add to Previous draw if able Performed By: #### 5 0608 ####[facility] Erythrocytes (RBC) 4.16 mill/mm3 Low 4.30-5.90 [facility] Comment on above: Order Comment: Yes: Add to Previous draw if able Performed By: #### 5 0608 ####[address] Hematocrit (HCT) 34.8 % Low 39.0-55.0 [facility] Comment on above: Order Comment: Yes: Add to Previous draw if able Performed By: #### 5 0608 ####[facility] [facility] Hemoglobin mass conc (Bld) 11.8 g/dL Low 13.9-16.3 [facility] Comment on above: Order Comment: Yes: Add to Previous draw if able Performed By: #### 5 0608 ####[facility] [facility] MCH 28.2 pg Normal 24.0-32.0 [facility] Comment on above: Order Comment: Yes: Add to Previous draw if able Performed By: #### 5 0608 ####[facility] [facility] MCHC mass conc (RBC) 33.8 g/dL Normal 32.0-36.0 [facility] Comment on above: Order Comment: Yes: Add to Previous draw if able Performed By: #### 5 0608 ####[address] [place] [address], [facility] MCV 83.6 fL Normal 80.0-100.0 [facility] Comment on above: Order Comment: Yes: Add to Previous draw if able Performed By: #### 5 0608 ####[facility] [facility] [place] [address], [facility] PLAT CNT 198 Thou/mm3 Normal 100-400 [facility] Comment on above: Order Comment: Yes: Add to Previous draw if able Performed By: #### 5 0608 ####[facility] [facility] [place] [address], [facility] WBC (Leukocytes) 3.9 Thou/mm3 Low 4.0-10.0 [facility] Comment on above: Order Comment: Yes: Add to Previous draw if able Performed By: #### 5 0608 ####[facility] [facility].[address] POC GLUCOSE LABon 04-25-2017 Glucose mass conc 232 mg/dL High 70-100 [facility] Comment on above: Performed By: #### 8 [id number] ####[facility].[address] Glucose mass conc 281 mg/dL High 70-100 [facility] Comment on above: Performed By: #### 8 5499 ####[place] [address] [facility].[address] Discharge Summaryon 04-20-20 17 Discharge Summary MR#: [id number] [facility] Pt. Name: Lisa Lugo Admitted: [...] history, requiring stentingin the past, presented to [facility] initially with complaints ofrecurrent chest pain [...] 81 mg daily, atenolol 25 mg daily, Jadgkrkl025 mg daily, Clopidogrel 75 mg daily, Lantus [...] Dict: 04/19/2017/06:17 Malick/Rosemary Pinzon Trans: 04/20/2017 07:36 A/Kehinde_JN:[id number]: Theron Mendoza D.O. [address] [place] [phone] Tino Gunderson M.D. [address] [address] Normal [facility] BASIC METABOLIC PANELon 12-1 Calcium 9.0 mg/dL Normal 8.6-10.3 [facility] Comment on above: Order Comment: No: D o not add to previous draw Performed By: #### 1 69, 70147 ####[facility] [place] [address], [facility] Chloride 104 mmol/L Normal 98-107 [facility] Comment on above: Order Comment: No: D o not add to previous draw Performed By: #### 1 69, 53238 ####[place] [address] [id number], [place] CO2 24 mmol/L Normal 21-31 [facility] Comment on above: Order Comment: No: D o not add to previous draw Performed By: #### 1 69, 47730 ####[facility] [place] [address], [place] Creatinine 0.94 mg/dL Normal 0.70-1.30 [facility] Comment on above: Order Comment: No: D o not add to previous draw Performed By: #### 1 69, 54841 ####[facility] [place] [address], [facility] eGFR (black) mL/min/{1.73_m2} Normal >60 [facility] Comment on above: Order Comment: No: D o not add to previous draw Performed By: #### 1 69, 28466 ####[facility] [place] [address], [place] eGFR (non-black) mL/min/{1.73_m2} Normal >60 [facility] Comment on above: Order Comment: No: D o not add to previous draw Performed By: #### 1 69, 32453 ####[facility] [place] [address], [facility] Glucose mass conc 182 mg/dL High 70-100 [facility] Comment on above: Order Comment: No: D o not add to previous draw Performed By: #### 1 69, 80896 ####[facility] [place] [address], [facility] Potassium molar conc 3.9 mmol/L Normal 3.5-5.1 [facility] Comment on above: Order Comment: No: D o not add to previous draw Performed By: #### 1 69, 52181 ####[facility] [place] [address], [facility] Sodium 138 mmol/L Normal 136-145 [facility] Comment on above: Order Comment: No: D o not add to previous draw Performed By: #### 1 69, 39990 ####[facility].[address] Urea nitrogen 18 mg/dL Normal 7-25 [facility] Comment on above: Order Comment: No: D o not add to previous draw Performed By: #### 1 69, 27804 ####[place] [address] [facility].[address] CBC COMPLETE BLOOD COUNTon 1 06-17-2016 Erythrocyte distribution width Auto Ratio (RBC) 14.7 % Normal 11.5-16.9 [facility] Comment on above: Order Comment: No: D o not add to previous draw Performed By: #### 5 0608 ####[facility] [place] [address], [facility] Erythrocytes (RBC) 4.37 mill/mm3 Normal 4.30-5.90 [facility] Comment on above: Order Comment: No: D o not add to previous draw Performed By: #### 5 0608 ####[facility] [place] [address], [place] Hematocrit (HCT) 36.5 % Low 39.0-55.0 [facility] Comment on above: Order Comment: No: D o not add to previous draw Performed By: #### 5 0608 ####[facility].[address] Hemoglobin mass conc (Bld) 12.3 g/dL Low 13.9-16.3 [facility] Comment on above: Order Comment: No: D o not add to previous draw Performed By: #### 5 0608 ####[facility] [address] MCH 28.0 pg Normal 24.0-32.0 [facility] Comment on above: Order Comment: No: D o not add to previous draw Performed By: #### 5 0608 ####[place] [address] [facility].[address] MCHC mass conc (RBC) 33.5 g/dL Normal 32.0-36.0 [facility] Comment on above: Order Comment: No: D o not add to previous draw Performed By: #### 5 0608 ####[place] [address] [facility].[address] MCV 83.5 fL Normal 80.0-100.0 [facility] Comment on above: Order Comment: No: D o not add to previous draw Performed By: #### 5 0608 ####[facility] [place] [address], [facility] PLAT CNT 167 Thou/mm3 Normal 100-400 [facility] Comment on above: Order Comment: No: D o not add to previous draw Performed By: #### 5 0608 ####[place] [address], [facility] WBC (Leukocytes) 4.7 Thou/mm3 Normal 4.0-10.0 [facility] Comment on above: Order Comment: No: D o not add to previous draw Performed By: #### 5 0608 ####[facility] Cardiovascular Lab Reporton 04-16-2017 Cardiovascular Lab Report [facility] Patient Name: Lisa Lugo [facility] MR #: [id number] Physician: Jenny Parsons M.D.Medicine Service Date: 04/15/2017Division of Birthdate: 2Cardiology Room #: 3AB [id number] CardiovascularServicesUniver [facility] [place], [place] [address]Llrfn Fax Cardiovascular Laboratory ReportINDICATION: Lisa Lugo is a 66-year-old man, known to have coronaryartery disease, status post multiple stenting procedures in the past, [facility] with recurrent chest pain at rest. Heinitially had minor ST elevations in the inferior leads that resolved afteradministration of intravenous heparin and nitroglycerin. Because ofrecurrent chest pain, he was transferred emergently to our record label intern fordiagnostic angiography and intervention.PROCEDURE:1. Bilateral selective coronary [...] EMS services. He was placed on the record label intern table.Both groin areas were prepped and draped in usual fashion. Usingmicropuncture technique, access in the right common femoral artery wasobtained and the inner cannula was advanced. Limited femoral angiographywas performed followed by upsizing to a 6-Emirati x 11 cm sheath. Bilateralselective coronary angiography was then performed using 6-Emirati JL4 andJR4 diagnostic catheters.Heparin was administered intravenously and therapeutic ACT confirmed duringthe procedure. A 6-Emirati JR4 guiding catheter was advanced and used toengage the right coronary ostium. A Prowater wire was advanced into thedistal RCA. Balloon dilatation in the distal RCA was performed usingEmerge 2.0 x 12 mm balloon and inflated at 12 atmospheres. Angiographyrevealed suboptimal results. This was treated using a PROMUS Premier 2.5 x16 mm drug-eluting stent, deployed at 11 atmospheres and post dilated usingNC Quantum [place] 2.5 x 8 mm noncompliant balloon inflated [...] in-stent restenosis was performed using NC [employer] [place] 3.0 x8 mm noncompliant balloon inflated at 14 atmospheres followed by additionaldilatation using NC [employer] [place] 3.0 x 12 mm noncompliant balloon inflatedat [...] 14atmospheres and post dilated using NC [employer] [place] 3.25 x 20 mmnoncompliant balloon inflated at 20 atmospheres throughout the length ofthe stent. Final angiography after administration of intracoronarynitroglycerin showed excellent result with reduction of the stenosis to 0%.No evidence of dissection or perforation. The guiding catheter wasremoved. The procedure was concluded. The right femoral arteriotomy wasmanaged with a 6-Emirati Perclose device with good hemostasis. The patientwas [...] restenosis at a later date.Electronically Signed by:Jenny Fostre M.D. 04/21/2017 01:07 P Jenny Foster M.D.Date Dict: 04/15/2017/06:14 P/Jenny Foster M.D.Date Trans: 04/16/2017 07:04 A/Kehinde_JN:[id number]: Theron Mendoza D.O. [address] [place] [phone] Tino Gunderson M.D. [facility] [address] Normal [facility] MAGNESIUM BLOODon 04-16-2017 Magnesium 1.9 mg/dL Normal 1.9-2.7 [facility] Comment on above: Order Comment: No: D o not add to previous draw Performed By: #### 1 0670, 999[address] ####[facility] [place] [address], [facility] POC GLUCOSE LABon 04-16-2017 Glucose mass conc 173 mg/dL High 70-100 [facility] Comment on above: Performed By: #### 8 5499 ####[facility] [place] [address], [facility] Glucose mass conc 228 mg/dL High 70-100 [facility] Comment on above: Performed By: #### 8 5499 ####[facility] [place] [address], [facility] POC GLUCOSE LABon 04-15-2017 Glucose mass conc 214 mg/dL High 70-100 [facility] Comment on above: Performed By: #### 8 5499 ####[facility] [place] [address], [facility] Vital Signs Date Time Vital Sign Value Performing Clinician Facility 11-05-2024 10:20-0400 Body height 177.8 cm Theron Ball DO Work Phone: [facility] 11-05-2024 10:20-0400 Body mass index (BMI) [Ratio] 25.3 kg/m2 Theron Ball DO Work Phone: [facility] 11-05-2024 10:20-0400 Body weight 80.05 kg Theron Ball DO Work Phone: [facility] 11-05-2024 10:20-0400 Diastolic blood pressure 73 mm[Hg] Theron Ball DO Work Phone: [facility] 11-05-2024 10:20-0400 Heart rate 66 /min Theron Ball DO Work Phone: [facility] 11-05-2024 10:20-0400 Respiratory rate 12 /min Theron Ball DO Work Phone: [facility] 11-05-2024 10:20-0400 Systolic blood pressure 135 mm[Hg] Theron Ball DO Work Phone: [facility] 12-18-2023 13:53-0400 Blood Pressure Location Chadd NILL [facility] 12-18-2023 13:53-0400 Diastolic blood pressure 74 mm[Hg] Chadd NILL [facility] 12-18-2023 13:53-0400 Heart rate 70 /min Chadd NILL [facility] 12-18-2023 13:53-0400 Respiratory rate 16 /min Chadd NILL [facility] 12-18-2023 13:53-0400 Systolic blood pressure 126 mm[Hg] Chadd NILL [facility] 11-05-2023 13:43-0400 Body height 177.8 cm [facility] 11-05-2023 13:43-0400 Body mass index (BMI) [Ratio] 25.7 kg/m2 [facility] 11-05-2023 13:43-0400 Body weight 81.24 kg [facility] 11-05-2023 13:43-0400 Diastolic blood pressure 71 mm[Hg] [facility] 11-05-2023 13:43-0400 Heart rate 71 /min [facility] 11-05-2023 13:43-0400 Respiratory rate 12 /min [facility] 11-05-2023 13:43-0400 Systolic blood pressure 121 mm[Hg] [facility] 10-01-2023 12:35-0400 Blood Pressure Location DOMINGA PRESLEY [facility] 10-01-2023 12:35-0400 Diastolic blood pressure 78 mm[Hg] DOMINGA PRESLEY [facility] 10-01-2023 12:35-0400 Heart rate 72 /min DOMINGA PRESLEY [facility] 10-01-2023 12:35-0400 Respiratory rate 16 /min DOMINGA PRESLEY [facility] 10-01-2023 12:35-0400 Systolic blood pressure 137 mm[Hg] DOMINGA PRESLEY [facility] 04-02-2023 09:30-0500 Body height 177.8 cm Theron Ball Other [facility] [employer] Other 04-02-2023 09:30-0500 Body mass index (BMI) [Ratio] 25.97 kg/m2 Theron Ball Other [employer] Other 04-02-2023 09:30-0500 Body weight 82.1 kg Theron Ball Other [facility] [employer] Other 04-02-2023 09:30-0500 Diastolic blood pressure 85 mm[Hg] Theron Ball Other [employer] Other 04-02-2023 09:30-0500 Respiratory rate 12 /min Theron Ball Other [employer] Other 04-02-2023 09:30-0500 Systolic blood pressure 135 mm[Hg] Theron Ball Other [employer] Other 11-01-2022 10:00-0400 Body height 177.8 cm Theron Ball Other [employer] Other 11-01-2022 10:00-0400 Body mass index (BMI) [Ratio] 25.77 kg/m2 Theron Ball Other [employer] Other 11-01-2022 10:00-0400 Body weight 81.47 kg Theron Ball Other [employer] Other 11-01-2022 10:00-0400 Diastolic blood pressure 71 mm[Hg] Theron Ball Other [employer] Other 11-01-2022 10:00-0400 Respiratory rate 12 /min Theron Ball Other [employer] Other 11-01-2022 10:00-0400 Systolic blood pressure 124 mm[Hg] Theron Ball Other [employer] Other 10-03-2022 13:45-0400 Body height 177.8 cm Theron Ball Other [employer] Other 10-03-2022 13:45-0400 Body mass index (BMI) [Ratio] 26.23 kg/m2 Theron Ball Other [employer] Other 10-03-2022 13:45-0400 Body weight 82.92 kg Theron Ball Other [employer] Other 10-03-2022 13:45-0400 Diastolic blood pressure 76 mm[Hg] Theron Ball Other [employer] Other 10-03-2022 13:45-0400 Respiratory rate 12 /min Theron Ball Other [employer] Other 10-03-2022 13:45-0400 Systolic blood pressure 160 mm[Hg] Theron Ball Other [employer] Other 11-20-2021 12:31-0400 Blood Pressure Location Tom LIZABETH [facility] 11-20-2021 12:31-0400 Diastolic blood pressure 80 mm[Hg] [facility] 11-20-2021 12:31-0400 Heart rate 74 /min Tom [facility]GUETA [facility] 11-20-2021 12:31-0400 Respiratory rate 16 /min Tom [facility]A [facility] 11-20-2021 12:31-0400 Systolic blood pressure 133 mm[Hg] Tom [facility] En[facility] Encounter Date Encounter Type Care Provider Facility Start: 10-01-2025 ambulatory Tom Vicki ARGUETA Facili ty:[facility] [place] Start: 09-24-2025 ambulatory Tom Vicki ARGUETA Facili ty:[facility] [place] Start: 11-05-2024 End: 11-05-2024 ambulatory Theron Mendoza DO Work Phone: [facility] Work Phone: Start: 11-05-2024 End: 11-05-2024 Patient encounter procedure Theron Mendoza DO -[facility] Work Phone: Start: 11-03-2024 Non-patient / Non-visit Theron frost DO -[facility] Work Phone: Start: 10-02-2024 End: 10-02-2024 ambulatory Tom ARGUETA Facility:[facility] [place] Start: 10-02-2024 End: 10-02-2024 Patient encounter procedure [facility] Start: 09-25-2024 Non-patient / Non-visit Dominga enriquez PA-C -[facility] Work Phone: Start: 04-27-2024 End: 04-27-2024 ambulatory Natali Weir MD Facility:[facility] [place] Start: 04-13-2024 End: 04-13-2024 ambulatory Natali Weir MD Facility: [place] Start: 03-23-2024 End: 03-23-2024 ambulatory Natali Weir MD Facility:[facility] [place] Start: 01-08-2024 ambulatory Chadd BARBOUR Facility : [facility] Start: 01-06-2024 End: 01-06-2024 ambulatory Natali Weir MD Facility: Start: 01-01-2024 End: 01-01-2024 ambulatory Chadd BARBOUR Facility:CD:[id number] Start: 12-18-2023 End: 12-18-2023 ambulatory Chadd BARBOUR Facility: [place] Start: 12-18-2023 End: 12-18-2023 Patient encounter procedure Chadd BARBOUR [facility] [place] Start: 12-16-2023 End: 12-16-2023 ambulatory Natali Weir MD Facility: [place] Start: 12-02-2023 End: 12-02-2023 ambulatory Natali Weir MD Facility: [facility] Start: 11-18-2023 End: 11-18-2023 ambulatory Natali Weir MD Facility: [facility] Start: 11-05-2023 End: 11-05-2023 ambulatory [facility] Work Phone: Start: 11-05-2023 End: 11-05-2023 Patient encounter procedure [facility] Physician [facility] Work Phone: Start: 11-05-2023 Non-patient / Non-visit [facility] Physician [facility] Work Phone: Start: 10-01-2023 End: 10-01-2023 Patient encounter procedure DOMINGA PRESLEY [facility] Start: 09-17-2023 Non-patient / Non-visit [facility] Work Phone: Start: 04-03-2023 End: 04-03-2023 ambulatory Theron Mendoza Other [employer] Other Start: 04-03-2023 Telephone encounter Theron Mendoza [facility] Start: 04-02-2023 End: 04-02-2023 ambulatory Theron Mendoza Other [employer] Other Start: 04-02-2023 Office outpatient vi sit 25 minutes Theron Ball [facility] Start: 04-01-2023 End: 04-01-2023 ambulatory Theron Mendoza Other [employer] Other Start: 04-01-2023 Telephone encounter Theron Mendoza [facility] Start: 01-07-2023 End: 01-07-2023 ambulatory Theron Mendoza Other [employer] Other Start: 01-07-2023 Telephone encounter Theron Mendoza [facility] Start: 11-01-2022 End: 11-01-2022 ambulatory Theron Mendoza Other [employer] Other Start: 11-01-2022 Patient encounter procedure Theron Matt [facility] Start: 10-03-2022 End: 10-03-2022 ambulatory Theron Mendoza Other [employer] Other Start: 10-03-2022 Office outpatient vi sit [...] 11-22-2021 Adult health examination Theron Mendoza Other [facility] [employer] Other Start: 11-20-2021 End: 11-20-2021 Patient encounter procedure Tom ARUGETA [facility] Start: 09-14-2021 End: 09-15-[address] THERON MENDOZA Facility:[facility] Start: 09-10-2017 End: 09-11-2017 Ambulatory DEFAULT PHYSICIAN Facility:[facility] Start: 04-25-2017 End: 04-26-2017 Ambulatory PROVIDER UNKNOWN Facility:[facility] Start: 04-15-2017 End: 04-16-2017 Evaluation and management of inpatient THERON MENDOZA Facility:[facility] Procedures Date Procedure Procedure [...] Activity Detail Author XR Lumbar spine Views [facility] XR Pelvis 1 or 2 Views [facility] Immunizations Immunization Date Immunization Notes Care Provider Kaden rueda 04-06-2024 influenza, high dose seasonal, preservative-free Theron Mendoza DO Work Phone: [facility] 04-03-2022 influenza virus vaccine, split virus (incl. purified surface antigen) Theron Mendoza Other [facility] [employer] Other 04-03-2022 influenza virus vaccine, unspecified formulation [facility] 04-03-2022 Prevnar 20 Theron Mendoza Other [facility] 03-28-2021 influenza virus vaccine, split virus (incl. purified surface antigen) Theron Mendoza Other [employer] Other 03-28-2021 influenza virus vaccine, unspecified formulation DOMINGA PRESLEY [facility] 04-03-2018 diphtheria, tetanus toxoids and acellular pertussis vaccine, unspecified formulation Theron Mendoza Other [facility] pneumococcal Conjuga te, unspecified formulation; Translations: [Need for prophylactic vaccination against Streptococcus pneumoniae (pneumococcus)] Theron Mendoza Other [employer] Other Payers Date Payer Category Payer Medicare [id number] 2021 Private Health Insurance 2016 Unknown 1959 Medicare [id number] 1959 Private Health Insurance [id number] 1959 Self-pay [id number] 1951 Unknown [id number] 2.16.84 0.1.673147.3.579.2.593 1951 Unknown [id number] 2.16.84 0.1.856748.3.579.2.593 1951 Unknown [id number] 2.16.84 0.1.873963.3.579.2.593 1951 Unknown [id number] 2.16.84 0.1.713459.3.579.2.593 1951 Unknown [id number] 2.16.84 0.1.837590.3.579.2.593 1951 Unknown [id number] 2.16. 840.1.490958.3.579.2.196 1951 Unknown [id number] 2.16. 840.1.078029.3.579.2.196 1951 Unknown [id number] 2.16. 840.1.921354.3.579.2.196 1951 Unknown [id number] 2.16. 840.1.634133.3.579.2.196 1951 Unknown [id number] 2.16. 840.1.960341.3.579.2.196 1951 Unknown [id number] 2.16. 840.1.306309.3.579.2.196 1951 Unknown [id number] 2.16. 840.1.011312.3.579.2.196 1951 Unknown [id number] 2.16.8 40.1.899032.3.579.2.727 1951 Unknown [id number] 2.16.8 40.1.636706.3.579.2.727 1951 Unknown [id number] 2.16.8 40.1.331524.3.579.2.727 1951 Unknown [id number] 2.16.8 40.1.019862.3.579.2.727 1951 Unknown [id number] 2.16.8 40.1.325946.3.579.2.727 1951 Unknown [id number] 2.16.8 40.1.838983.3.579.2.727 Medicare [id number] Social History Date Type Detail Facility Start: 04-10-2021 End: 10-02-2024 Tobacco smoking status Ex-smoker (finding) [facility] Sex Assigned At Male [facility] Tobacco smoking status Never [facility] Start: 11-05-2023 End: 11-05-2024 Tobacco smoking status NHIS Never smoked tobacco (finding) [facility] Start: 1950 Sex Assigned At Male F [facility] Sexual Orientation [facility] Start: 10-30-2018 Sex Male (finding) [facility] Procedure Code Equipment Code Equipment [...] Assessment Result Facility 12-18-2023 Functional Status N/A [facility] [place] 10-01-2023 Functional Status N/A [facility] 11-20-2021 Functional Status N/A [facility] Clinical Notes 11-20-2021 to 10-02-2024 Note Date [...] urethra. Follow these instructions at home: Take esyh-yji-szahfbx and prescription medicines only as told by [...] provider. Document Revised: 11/01/2021 Document Reviewed: 11/01/2021 I-MD Patient Education 2023 [employer]. Follow Up Care 10/01/2023 13:04:47 With:LIZABETH NUÑEZ, Tom Cohen, URL Address: [address] [place], [place] [id number]- When: Unknown [facility] 10-02-2024 Note Patient Education Urology Benign Prostatic [...] Follow these instructions at home: ??? Take irph-rbk-bbiojut and prescription medicines only as told by [...] do not get (more content not included)... [facility] 12-18-2023 Note General Surgery Offi ce/Clinic [...] Daily pioglitazone 1 (more content not included)... [facility] Comment on above: Result Comment: Elec [...] urethra. Follow these instructions at home: Take qqfh-wlw-slbepwb and prescription medicines only as told by [...] provider. Document Revised: 11/01/2021 Document Reviewed: 11/01/2021 I-MD Patient Education 2022 [employer]. Follow Up Care 09/17/2022 11:39:15 With:DOMINGA PRESLEY PA-C, URL Address: [address] [place] [id number] When: Unknown [facility] 04-02-2023 Evaluation note Encounter Date Diagnosis Assessment [...] risk for cerebrovascular and cardiovascular disease. Mar, snf (current) use of insulin (ICD-10 - [...] dyspnea, CP or lightheadedness _update office tomorrow [employer] Other 12-04-2023 Evaluation note* Encounter Date Diagnosis Assessment Notes Treatment Notes Treatment Clinical Notes Mar, Primary hypertension (ICD-10 - I10) Mar, Type 2 diabetes mellitus with hyperglycemia (ICD-10 - E11.65) Mar, Mixed hyperlipidemia (ICD-10 - E78.2) Mar, ASHD (arteriosclerotic heart disease) (ICD-10 - I25.10) Mar, High risk medication use (ICD-10 - Z79.899) [employer] Other 09-11-2023 Evaluation note* Encounter Date Diagnosis Assessment Notes Treatment Notes Treatment Clinical Notes Dec, Type 2 diabetes mellitus with hyperglycemia (ICD-10 - E11.65) [employer] Other 07-06-2023 Evaluation note* Encounter Date Diagnosis [...] (ICD-10 - Z12.5) Completed w/ , normal [employer] Other 06-07-2023 Evaluation note* Encounter Date Diagnosis [...] to achieve/maintain a normal BMI. Avoid NSAIDs PhoneTell Other 07-25-2022 Hospital Discharge instructions Patient Education [...] Follow these instructions at home: Medicines Take aaqm-ehv-ipokiwy and prescription medicines only as told by [...] or the blood stops without treatment. Take qkyh-ipo-xcssdch and prescription medicines only as told by [...] Document Reviewed: 05/18/2017 Elsevier Patient Education 2020 [employer] Follow Up Care 09/21/2021 10:23:43 With:LIZABETH NUÑEZ, Tom Cohen, URL Address: [facility] [address] , [place] [address] [phone] When: Unknown [facility] Ann evaluation + Plan note Future Appointments Appointment Date:11/28/2021 08:45:00 AM Scheduled Provider: Location:[facility] Appointment Type:Urology CALL PAT FT Appointment Date:12/12/2021 10:30:00 AM Scheduled Provider: Location:[facility] Surgical Services Appointment Type:Urology FT Appointment Date:04/13/2022 10:45:00 AM Scheduled Provider:Tom ARGUETA MD Location:[facility] Appointment Type:URO Office Visit [facility] evaluation + Plan note Future Appointments Appointment Date:10/02/2024 10:15:00 AM Scheduled Provider:Tom ARGUETA MD Location:[facility] Appointment Type:URO Office Visit Diagnostic Tests Pending * PSA Total 10/01/[address] [facility] [address] [facility] evalgiiapp + Plan note Future Appointments Appointment Date:10/02/2024 10:15:00 AM Scheduled Provider:Tom ARGUETA MD Location:[facility] Appointment Type:URO Office Visit [facility] evaluation + Plan note Future Appointments Appointment Date:09/24/2025 10:00:00 AM Scheduled Provider: Location:[facility] Appointment Type:URO Nurse Visit Appointment Date:10/01/2025 09:45:00 AM Scheduled Provider:Tom ARGUETA MD Location:[facility] Appointment Type:URO Office Visit Future Scheduled Tests Laboratory* PSA Total 08/27/[address] [facility] [address] [facility] evaluation noteNo [employer] Other evaluation note* Diagnosis Onset Date Resolution Status Anemia acute ASHD (arteriosclerotic heart disease) acute GERD (gastroesophageal reflux disease) acute Hypercholesterolemia acute Hypertension acute Type 2 diabetes mellitus with hyperglycemia acute Medicare annual wellness visit, subsequent noneactive Screening for colon cancer n oneactive [facility] Work Phone: evaluation note* Diagnosis Onset Date [...] it, subsequent noneactive November 05, 2024 9:55am [facility] Work Phone: History general Narrative - Reported* [...] knee 2003 Hospitalization History see surgical history PhoneTell Other Hospital course Narrative No data available for this section [facility] Hospital Discharge instructions No data available for this section [facility] [place] note No data available for this section [facility] reason for referral (narrative)* Reason Referral for interna l derangement right knee Diagnosis 1 Internal derangement of right knee (M23.91) Referral Organization [facility] Margy durant Referring Provider First Name [...] Notes MRI right knee to be included PhoneTell Other Reason for referral (narrative)No reason for referral information availableUniversity [facility] Work Phone: Summary Purpose Family History Relationship [...] section and content) DATE CREATED AUTHOR 10/16/2017 [facility] DATE CREATED AUTHOR AUTHOR'S ORGANIZ ATION 04/04/2019 [facility] DATE CREATED AUTHOR AUTHOR'S ORGANIZ ATION 04/30/2022 [facility] DATE CREATED AUTHOR AUTHOR'S ORGANIZ ATION 05/12/2024 [facility] DATE CREATED AUTHOR AUTHOR'S ORGANIZ ATION 10/04/2024 [facility] Care Team (unrecognized sect ion and [...] (unrecogniz ed section and content) Wants in [facility] InformationNo InformationBlood Work?Check UpUpdate Goals (unrecognized [...] BE BASED ON THE PRIMARY CLINICAL RECORDS. [employer] provides no warranty or guarantee of the accuracy or completeness of information in this document.
--- NOTE | 2024-12-16 14:26 | PM.CN ---
Consult Note: HPI Data of Consult Patient: known to practice within the last 3 years Consult date: 12/16/24 Requesting Physician: Lisa Barcenas NP Primary Care Provider: Theron Lora, Consult Narrative Reason for consult: low back pain and BLE pain/weakness Narrative: 73yom who presents for assessment. imaging reviewed, which is significant for moderate to severe spondylosis and stenosis at l4-5 and l5-s1. continues in provider directed home exercises, without lasting benefit. uses tylenol as needed as well as baclofen 10mg BID PRN. denies adverse med side effects. recently underwent bilateral L4-5 L5-S1 facet RFA and bilateral L5-S1 TFESI with significant ongoing relief, >80% improvement in pain and cuntional ability. JOSE G 16%, pain 0/10 increasing to 1/10. notes chronic numbness to bilateral feet. cc:: CC: Lisa Barcenas NP Review of Systems ROS Status of ROS 10 or more systems reviewed and unremarkable except as noted in history and below Musculoskeletal Reports: back pain and extremity pain PFSH PFSH Medical History (Updated 03/18/24 @ 09:27 by Lisa Barcenas NP) Lymphocytopenia ?D72.810 - Lymphocytopenia (ICD-10) Lumbar spondylolysis ?M43.06 - Spondylolysis, lumbar region (ICD-10) History of nephrolithiasis ?Z87.442 - Personal history of urinary calculi (ICD-10) Epidermal cyst of neck ?L72.0 - Epidermal cyst (ICD-10) Chronic prostatitis ?N41.1 - Chronic prostatitis (ICD-10) BPH with urinary obstruction ?N40.1 - Benign prostatic hyperplasia with lower urinary tract symptoms (ICD-10) ?N13.8 - Other obstructive and reflux uropathy (ICD-10) Anemia ?D64.9 - Anemia, unspecified (ICD-10) Coronary artery disease ?I25.10 - Atherosclerotic heart disease of [place] coronary artery without angina pectoris (ICD-10) Osteoarthritis ?M19.90 - Unspecified osteoarthritis, unspecified site (ICD-10) Acid reflux ?K21.9 - Gastro-esophageal reflux disease without esophagitis (ICD-10) Diabetes ?E11.9 - Type 2 diabetes mellitus without complications (ICD-10) High cholesterol ?E78.00 - Pure hypercholesterolemia, unspecified (ICD-10) HTN (hypertension) ?I10 - Essential (primary) hypertension (ICD-10) Myocardial infarct ?I21.9 - Acute myocardial infarction, unspecified (ICD-10) Surgical History History of arthroscopy of knee ?Z98.890 - Other specified postprocedural states (ICD-10) History of cardiac catheterization ?Z98.890 - Other specified postprocedural states (ICD-10) History of prostate biopsy ?Z98.890 - Other specified postprocedural states (ICD-10) History of transurethral resection of prostate ?Z98.890 - Other specified postprocedural states (ICD-10) ?Z90.79 - Acquired absence of other genital organ(s) (ICD-10) History of colonoscopy ?Z98.890 - Other specified postprocedural states (ICD-10) History of cystoscopy ?Z98.890 - Other specified postprocedural states (ICD-10) History of heart artery stent ?Z95.5 - Presence of coronary angioplasty implant and graft (ICD-10) Family History Other Family history of hypertension Heart disease Social History Within the past year, how often did you have a drink containing alcohol: monthly or less Smoking status: Former smoker Non-prescribed substance use: denies use 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 Highest level of school completed/degree received: some college, no degree Meds Home Medications and Allergies Home Medications ?Medication ?Instructions ?Recorded ?Confirmed ?Type aspirin 81 mg capsule 81 mg PO DAILY 11/18/23 12/07/24 History atenolol 25 mg tablet 25 mg PO Q24H 11/18/23 12/07/24 History atorvastatin 80 mg tablet 80 mg PO DAILY 11/18/23 12/07/24 History clopidogrel 75 mg tablet 75 mg PO DAILY 11/18/23 12/07/24 History insulin glargine 100 unit/mL (3 50 unit subcut DAILY 11/18/23 12/07/24 History mL) subcutaneous pen (Lantus Solostar U-100 Insulin) pantoprazole 40 mg tablet,delayed 40 mg PO DAILY 11/18/23 12/07/24 History release pioglitazone 15 mg tablet 15 mg PO DAILY 11/18/23 12/07/24 History baclofen 10 mg tablet 10 mg PO TID 03/18/24 12/07/24 History Allergies Allergy/AdvReac Type Severity Reaction Status Date / Time metformin AdvReac Diarrhea Verified 12/07/24 11:29 Exam Constitutional Documenting provider has reviewed patient's vital signs: yes Common normals: no apparent distress, oriented x3, healthy appearing, alert and well nourished General appearance: cooperative HENMT Common normals: normocephalic, hearing grossly normal bilaterally and moist oral mucous membranes Head and scalp: normocephalic Eye Common normals: PERRL Pupil: PERRL Neck & C-Spine Common normals: full ROM General: normal visual inspection Chest Common normals: inspection of chest normal Respiratory Common normals: normal respiratory effort, no retractions and no use of accessory muscles Back & Pelvis Lumbar spine/lower back: ROM not limited, no pain with ROM, no lumbar spinal tenderness, straight leg raise negative right and straight leg raise negative left Other: sensation intact BLE strength 5/5 in BLE Neuro Common normals: oriented x3 Sensorium/orientation: alert Psych Common normals: mental status grossly normal, thought process normal, cooperative, affect normal, speech normal and activity/motor behavior normal Speech: normal speech Thought process: normal thought process Results Additional Findings Additional findings: If on a controlled substance or opioids, I have checked an [place]AR[place] report on this patient and there are no aberrancies noted in the prescribing history.??If on a controlled substance or opioid a drug screen was completed and reviewed within the last year, and if there has not been a drug screen completed we ordered one today to monitor higher risk, state monitored pain medication use. As part of providing excellent, safe, comprehensive care, the following was completed at our patient's visit: 1. A medication reconciliation and review to ensure accurate knowledge of current/active medications, including asking our patients to inform us about any xdum-bxe-cipthhp medications or herbal remedies/nutritional supplements/alternative remedies. 2. A review to specifically ensure our patients have had annual screening for screening for depression, screening for tobacco use, and screening for unhealthy alcohol use. For concerning screenings had a discussion with the patient, provided patient education, and recommended follow-up with primary care provider when appropriate. If patient noted with a risk of falling, they received education on strength, gait, and balance training to prevent future risk of falling. Assessment and Plan Assessment and Plan (1) Lumbar spondylosis: Assessment and Plan: significant improvement on facet mediated pain (2) Lumbar stenosis with neurogenic claudication: (3) Myalgia: Plan refill/continue baclofen 10mg BID PRN pain/spasms continue HEP as tolerated f/u 3 months, sooner if needed although pt will be in [place] from 01/03-03/09/25
== END 2024-12-16 13:46 | disposition home or self-care (01) ==
LOC: PM 13:46
PROVIDERS: PCP Internal Medicine; Visit Provider Nurse Practitioner
DX: M47.816 Spondylosis without myelopathy or radiculopathy, lumbar region (principal); M48.062 Spinal stenosis, lumbar region with neurogenic claudication; M79.18 Myalgia, other site
CPT/HCPCS: G0463

== ENCOUNTER 2025-03-11 13:45 | Outpatient (OUT) | payer MEDICARE, OTHER, SELFPAY ==
--- OUTSIDE RECORDS SUMMARY | 2025-03-11 13:48 | XMS_ITS | Clinical Summary ---
Author Organization [facility] Address [address] [place] [address] Care Team Providers Care Electronic Induction Hardener Name Role Phone Theron Lora DO Primary Care Provider [phone] Allergies No known active allergies Medications MedicationSigDispense QuantityRefillsLast FilledStart DateEnd DateStatus pioglitazone (Actos) 15 MG tablet 10/30/2022ctive pantoprazole (ProtoNix) 40 MG EC tablet Take 40 mg by mouth in the morning.Active Lantus SoloStar 100 UNIT/ML pen Active atorvastatin (Lipitor) 80 MG tablet Take 1 tablet every day by oral route for 90 days.Active atenolol (Tenormin) 25 MG tablet Take 25 mg by mouth in the morning.Active Family History Medical HistoryRelationNameCommentsDiabetesFatherHeart diseaseFatherHypertension FatherRelationNameStatusCommentsFatherDeceasedMotherDeceased Social History Tobacco UseTypesPacks/DayYears UsedDateSmoking Tobacco: FormerCigarettes Smokeless Tobacco: Never Tobacco Cessation:Counseling Given: Not Answered Alcohol UseStandard Drinks/WeekCommentsNot Currently0 (1 standard drink = 0.6 oz pure alcohol)Sex and Gender InformationValueDate RecordedSex Assigned at Not on fileLegal SaqWmch6707/11/2022 8:28 PM EDTGender IdentityNot on fileSexual OrientationNot on file Last Filed Vital Signs Vital SignReadingTime TakenCommentsBlood Pressure--Pulse--Temperature-- Respiratory Rate--Oxygen Saturation--Inhaled Oxygen Concentration--Yhgags71.6 kg (180 lb)2022 12:04 PM QQJNyzuka574.8 cm (5' 10 )2022 12:04 PM EDT Body Mass Index25.8311/14/2022 12:04 PM EDT Plan of Treatment [place] [id number] Care Teams Team MemberRelationshipSpecialtyStart DateEnd Date Theron Lora DO PCP - GeneralInternal Medicine10/16/22
--- OUTSIDE RECORDS SUMMARY | 2025-03-11 13:48 | XMS_ITS | Clinical Summary ---
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 Name Role Phone Theron Lora DO Primary Care Provider [phone] Allergies No known active allergies Medications MedicationSigDispense QuantityRefillsLast FilledStart DateEnd DateStatus traMADol (ULTRAM) 50 mg tablet Take 50 mg by mouth twice daily.Active aspirin, enteric coated (ASPIRIN, ENTERIC COATED) 81 mg EC tablet Take 81 mg by mouth once daily.Active clopidogrel (PLAVIX) 75 mg tablet Take 75 mg by mouth once daily.Active atorvastatin (LIPITOR) 80 mg tablet Take 80 mg by mouth once daily.Active insulin glargine,hum.rec.anlog (LANTUS SOLOSTAR U-100 INSULIN SUBCUTANEOUS) Inject subcutaneously as directed.Active atenolol (TENORMIN) 25 mg tablet Take 25 mg by mouth once daily.Active pantoprazole DR (PROTONIX) 40 mg tablet Take 40 mg by mouth once daily.Active fluticasone (FLONASE ALLERGY RELIEF) 50 mcg/actuation nasal spray Use 2 Sprays in each nostril once daily.Active Social History Tobacco UseTypesPacks/DayYears UsedDateSmoking Tobacco: FormerSmokeless Tobacco: NeverAlcohol UseStandard Drinks/WeekCommentsYes0 (1 standard drink = 0.6 oz pure alcohol)AUDIT-CAnswerDate RecordedQ1: How often do you have a drink containing alcohol?Monthly or less04/02/2019Average Number of DrinksNot on file04/02/2019 Frequency of Binge DrinkingNot on file04/02/2019Area Deprivation IndexAnswerDate RecordedNational Score (1-100), lower number is lower riskNot on file04/05/2020 State Score (1-10), lower number is lower riskNot on file04/05/2020Data from: https://www.neighborhoodatlas.medicine.[facility].edu/. Last address used for calculationNot on file04/05/2020Sex and Gender InformationValueDate RecordedSex Assigned at BirthNot on fileLegal AbtHzls57/20/2019 2:19 PM ESTGender Identity Not on fileSexual OrientationNot on file Last Filed Vital Signs Vital SignReadingTime TakenCommentsBlood Hnqddzvm528/6904/02/2019 11:16 AM EST Cyxxb124004/02/2019 11:16 AM VFBBcxmgehteyk95.7 ??C (98.1 ??F)04/02/2019 11:16 AM ESTRespiratory Zkvn847806/03/2018 11:16 AM ESTOxygen Oylrwtgcwg55%04/02/2019 11:16 AM ESTInhaled Oxygen Concentration--Wobscf19.5 kg (177 lb 6.4 oz)04/02/2019 11:16 AM PARBdehej623.8 cm (5' 10 )04/02/2019 11:16 AM ESTverifiedBody Mass Index25.45106/03/2018 11:16 AM EST Plan of Treatment Health MaintenanceDue DateLast DoneCommentsAbdominal Aortic Aneurysm Screening 2Anxiety Vbuxgphar97/18/1970Depression Lhbsccauq07/18/1970DTaP,Tdap,Td Vaccine (1 - Tdap)11/13/1970Lipid Xsttdmrao31/18/1987CT Offnfwkndwhl55/18/1997 Cologuard (FIT-DNA)11/13/19964327Fqldwvurfdw25/18/1997Colorectal Cancer Screening 11/13/1996Fecal Occult Blood11/13/19963622Jxhaerltgatyd02/18/1997Pneumococcal Vaccine: 50+ (1 of 1 - PCV)11/13/2001Shingrix Vaccine (1 of 2)11/13/2001Diabetes Rdmzgkmnx16Advance Directive Urpvqytiks35/01/2025ovid-19 Vaccine (1 - season)2024Influenza Vaccine (#1)2024RSV Vaccine (1 - 1-dose 75+ series)11/13/2026Hepatitis C ScreeningCompleted 04/02/2019 Procedures Procedure NamePriorityDate/TimeAssociated DiagnosisCommentsHEP REMOTE PANEL BL Mjrkzrn9804/02/2019 12:40 PM EST Leukopenia, unspecified type COMPREHENSIVE METABOLIC QXLXRSvcbzdx69/05/2019 12:40 PM EST Leukopenia, unspecified type from Last 3 Months or Most Recently Relevant to Health Maintenance Results * HEP REMOTE PANEL BL (04/02/2019 12:40 PM EST)ComponentValueRef RangeTest MethodAnalysis TimePerformed AtPathologist SignatureHep B Core Ab, Total PdhtnjktXaybthij52/06/2019 10:45 AM [facility] Antibody OMIbjfqoaqXhwwwpzl13/06/2019 10:46 AM [facility] EnjrtltryoryFTtTqZidgilivOhgezcad21/06/2019 10:45 AM [facility]Hep B Surface Ab, TcwxPdxogbxeDjcpzsyb01/06/2019 10:45 AM EST [facility] LaboratoriesComment:NEGATIVESpecimen (Source)Anatomical Location / LateralityCollection Method / VolumeCollection TimeReceived Time Blood specimen (specimen)BLOOD SPECIMEN / Nknfwoi0604/02/2019 12:40 PM EST 04/02/2019 12:42 PM EST Narrative Authorizing ProviderResult TypeResult StatusFrancis Hebert DOLABORATORY Final ResultPerforming OrganizationAddressCity/State/ZIP CodePhone Number [facility] [address] [place] [address] [facility] [address] [place] [address] * (ABNORMAL) COMP METABOLIC PANEL (04/02/2019 12:40 PM EST)ComponentValueRef RangeTest MethodAnalysis TimePerformed AtPathologist SignatureProtein, Total 7.46.3 - 8.0 g/dL04/02/2019 1:12 PM [facility] CareAlbumin4.43.9 - 4.9 g/dL04/02/2019 1:12 PM [facility] Cancer CareCalcium9.68.5 - 10.2 mg/dL04/02/2019 1:12 PM [facility] Cancer CareBilirubin, Total0.60.2 - 1.3 mg/dL04/02/2019 1:12 PM [facility] Cancer CareAlkaline Qxpscofugwm77761 - 113 U/L 04/02/2019 1:12 PM [facility] PzmdDGL3378 - 40 U/L 04/02/2019 1:12 PM [facility] HehjUbljllk643(H)74 - 99 mg/dL04/02/2019 1:12 PM [facility] Comment: The [place] Diabetes Association (ADA) provides guidance for cutoff [...] Standards of Medical Care in Diabetes 2016, [place] [employer] Association. Diabetes Care. 2016.39(Suppl 1). BLU066 - 24 mg/dL04/02/2019 1:12 PM [facility] Creatinine0.940.73 - 1.22 mg/dL04/02/2019 1:12 PM [facility] FaglOtojbi337(L)136 - 144 mmol/L106/03/2018 1:12 PM [facility] Cancer CarePotassium4.83.7 - 5.1 mmol/L106/03/2018 1:12 PM [facility] CblxAqruhzvj4382 - 105 mmol/L106/03/2018 1:12 PM [facility] QsgyDO81823 - 30 mmol/L106/03/2018 1:12 PM [facility] Cancer CareAnion Vkm732 - 18 mmol/L106/03/2018 1:12 PM [facility] JczqGDQ8973 - 54 U/L106/03/2018 1:12 PM [facility] Cancer CareeGFR->60 04/02/2019 1:12 PM [facility] Cancer CareeGFR-All Other Races>60.04/02/2019 1:12 PM ESTMary [facility] Cancer CareComment: eGFR (Estimated GFR) Units of measure: mL/min/1.73 [...] eGFR may not accurately reflect actual GFR. Specimen (Source)Anatomical Location / LateralityCollection Method / Volume Collection TimeReceived TimeBlood specimen (specimen)BLOOD SPECIMEN / Unknown 04/02/2019 12:40 PM EST04/02/2019 12:42 PM EST Narrative Authorizing ProviderResult TypeResult StatusFrancis Hebert DOLABORATORY Final ResultPerforming OrganizationAddressCity/State/ZIP CodePhone Number [facility] [address] [address] [facility] [address] [place] [address] from Last 3 Months or Most Recently Relevant to Health Maintenance Insurance Care Teams Team MemberRelationshipSpecialtyStart DateEnd Date Theron Lora DO [address] [place] [address] PCP - GeneralInternal Ivjgimkn01/20/19
--- OUTSIDE RECORDS SUMMARY | 2025-03-11 13:50 | XMS_ITS | CCD ---
Author Organization [facility] Care Team Providers Care Seamer Operator Name Role Phone THERON MENDOZA Unavailable Unavailable TINO GUNDERSON Unavailable Unavailable MO SANCHEZ AM Unavailable Unavailable MO SANCHEZ AM Unavailable Unavailable [place] Unavailable Unavailable UNKNOWN, PROVIDER Unavailable Unavailable UNKNOWN, PROVIDER Unavailable Unavailable UNKNOWN, PROVIDER Unavailable Unavailable MATT, THERON Unavailable Unavailable MATT, THERON Unavailable Unavailable PHYSICIAN, DEFAULT Unavailable Unavailable PHYSICIAN, DEFAULT Unavailable Unavailable MATT, THERON Unavailable Unavailable THERON MENDOZA Primary Care Physician [...] Matt, Theron Unavailable Tom ARGUETA Attending Unavailable NILL, Chadd Cohen Attending Unavailable NILL, Chadd Cohen Attending Unavailable NILL, Chadd Cohen Attending Unavailable ARGUETA, Tmo Cohen Attending Unavailable ARGUETA, Tom Cohen Attending Unavailable Ball Theron BARBER Primary Care Provider Dominga Presley PA-C Attending Provider Theron Mendoza DO Attending Provider Carmella NUÑEZ, Natali Luo Attending Unavailable Carmella NUÑEZ, Natali Luo Attending Unavailable Carmella NUÑEZ, Natali Luo Attending Unavailable Carmella NUÑEZ, Natali Luo Attending Unavailable Carmella NUÑEZ, Natali Luo Attending Unavailable Allergies Allergy ClassificationReported Allergen(s)Allergy TypeDate of OnsetReaction(s) Facility (1 source)02251,00; Translations: [16694,00]Propensity to adverse reactions (disorder)63-84-3168[facility]ository (13 sources)metFORMIN; Translations: [metformin]Drug AllergyDiarrhea (finding) [facility] [place] (3 sources)patient allergy list reviewed by nurse or physiciaPropensity to adverse adoiutmza34-85-7257Udliokp:[employer] Other (1 source)No Known Medication Allergies; Translations: [No Known Medication Allergies]Propensity to adverse reactions (disorder)[facility] RepositoryNEGATED: Highlighted row has been ruled out! (1 source)[facility] allergyCommunity [facility] Medications Current Medications MedicationDrug Class(es)DatesSig (Normalized)Sig (Original)aspirin 81 mg chewable tablet (14 sources)Platelet Aggregation Inhibitor, Nonsteroidal Anti-inflammatory Drug Start: 25-13-8098bwlv 1 tablet by mouth once dailyAspirin 81 mg tablet,chewable Active 1 TAB PO Daily November 05, 2023 12:00am FreeTextSi tablet Orally Once a day; Note: Source Status: Continue; Provider: Matt Crump ( ) Complies with drug therapyStart: 72-20-7643ryqf 1 tablet by mouth once daily aspirin 81 mg oral tablet 81 mg = 1 tab(s), Oral, Daily Start Date: 12/15/18 Status: Ordered Repeat number: 1take 1 tablet by mouth every twenty-four hours Aspirin 81 MG 1 tablet Orally Once a day ActiveAspirin Activeatenolol 25 mg oral tablet (17 sources)beta-Adrenergic BlockerStart: 09-16-2023 End: 47-98-7966Mxqvhugi 25 mg tablet Active 0 .ROUTE .COMPLEX 90 July 28, 2024 8:23pm TAKE 1 TABLET DAILY Complies with drug therapyStart: 12-15-2018 End: 00-15-9502dtub 1 tablet by mouth once dailyAtenolol 25 mg tablet Discontinued 25 MG PO Daily September 16, 2023 12:00am September 16, 2023 12:45pm atorvastatin 80 mg oral tablet (15 sources)HMG-CoA Reductase InhibitorStart: 23-67-7249Xyzaotcujlfw 80 mg tablet Active 0 .ROUTE .COMPLEX June 06, 2024 8:57am TAKE 1 TABLET DAILY IN THE EVENING Complies with drug therapyStart: 12-16-2018 End: 07-61-7848gtop 1 tablet by mouth once daily in the eveningAtorvastatin 80 mg tablet Discontinued 80 MG PO Every evening November 05, 2023 12:00am June 06, 2024 8:57ambaclofen 10 mg oral tablet (1 source)gamma-Aminobutyric Acid-ergic AgonistStart: 83-92-6888lkna 1 tablet by mouth once dailyBaclofen 10 mg tablet Active 10 MG PO Daily April 06, 2024 1:00am Complies with drug therapybaclofen 10 MG Oral Granules (1 source)Start: 95-67-6196xzxkcapl 10 mg oral granule Refills(s) 0 Start Date: 10/01/24 Status: Ordered Repeat number: 1celecoxib 200 mg oral capsule (10 sources)Nonsteroidal Anti-inflammatory DrugStart: 35-43-7218ujjn 1 capsule by mouth once dailyCelecoxib (Celebrex) 200 mg capsule Active 200 MG PO Daily November 05, 2023 12:00am Complies with drug therapyCeleBREX Not-TakingCeleBREX Activeclopidogrel 75 mg oral tablet (14 sources)P2Y12 Platelet InhibitorStart: 78-59-8047gqff 1 tablet by mouth once dailyClopidogrel 75 mg tablet Active 75 MG PO Daily November 05, 2024 10:46am Complies with drug therapyStart: 11-06-2023 End: 99-14-8003Ffhqyklroeo 75 mg tablet Discontinued 0 .ROUTE .COMPLEX November 06, 2023 6:17pm November 05, 2024 10:47am TAKE 1 TABLET DAILYStart: 12-16-2018 End: 62-27-9244gpru 1 tablet by mouth once dailyClopidogrel 75 mg tablet Discontinued 75 MG PO Daily November 05, 2023 12:00am November 06, 2023 6:17pm glimepiride 1 mg oral tablet (1 source)SulfonylureaStart: 38-28-4094nscf 2 tablets by mouth once daily glimepiride 1 mg Tab 2 mg = 2 tab(s), Oral, Daily, Refills(s) 0 Start Date: 03/21/20 Status: Ordered3 ml insulin glargine 100 unt/ml pen injector (9 sources)Insulin AnalogStart: 11-05-2023 End: 01-44-5291Kyslrul Glargine (Lantus Solostar U-100 Insulin) 100 unit/mL (3 mL) insulin pen Active 0 .ROUTE .COMPLEX May 02, 2024 3:53pm INJECT 50 UNITS UNDER THE SKIN DAILY Complies with drug therapyLantus SoloStar 100 UNIT/ML INJECT 50 UNITS UNDER THE SKIN DAILY ActiveLantus Solostar Pen (4 sources)Start: 44-36-6365maldkr 50 [IU] by subcutaneous injection once daily Lantus Solostar Pen 50 unit(s), SubCutaneous, Daily Start Date: 12/15/18 Status: Ordered Repeat number: 1Start: 41-38-7065cdpkce 50 [IU] by subcutaneous injection once dailyLantus Solostar Pen 50 unit(s), SubCutaneous, Daily Start Date: 12/15/18 Status: OrderedMagnesium (1 source)Start: 23-42-5147oahc 2 tablets by mouth once dailyMagnesium 200 mg tablet Active 400 MG PO Daily April 06, 2024 1:00am Complies with drug therapypantoprazole 40 mg delayed release oral tablet (17 sources)Proton Pump InhibitorStart: 07-03-2023 End: 12-65-1296Ucfiwxgbzqrb 40 mg tablet,delayed release (DR/EC) Active 0 .ROUTE .COMPLEX July 21, 2024 12:03pm TAKE 1 TABLET DAILY ON AN EMPTY STOMACH FOLLOWED IN 30 MINUTES BY BREAKFAST Complies with drug therapyStart: 07-03-2023 Pantoprazole Active 0 .ROUTE .COMPLEX July 03, 2023 10:55pm TAKE 1 TABLET DAILY ON AN EMPTY STOMACH FOLLOWED IN 30 MINUTES BY BREAKFASTStart: 12-16-2018 End: 85-77-9672bvxb 1 tablet by mouth once dailyPantoprazole 40 mg tablet,delayed release (DR/EC) Discontinued 40 MG PO Daily July 03, 2023 1:00am July 03, 2023 10:55pmpioglitazone 15 mg oral tablet (13 sources)Peroxisome Proliferator Receptor alpha Agonist, Peroxisome Proliferator Receptor gamma Agonist, ThiazolidinedioneStart: 02-26-2024 Pioglitazone 15 mg tablet Active 0 .ROUTE .COMPLEX 90 February 26, 2024 8:43am TAKE 1 TABLET DAILYComplies with drug therapyStart: 04-10-2021 End: 79-66-5903ihbr 1 tablet by mouth once dailyPioglitazone 15 mg tablet Discontinued 15 MG PO Daily November 05, 2023 12:00am February 26, 2024 8:43am Start: 54-03-9851ftbe 1 mg by mouth twice dailypioglitazone 15 mg Tab mg tab(s), Oral, BID, Refills(s) 0 Start Date: 04/10/21 Status: Ordered Completed/Discontinued Medications MedicationDrug Class(es)DatesSig (Normalized)Sig (Original)cephalexin 500 mg oral capsule (1 source)Cephalosporin AntibacterialStart: 94-65-7768ffjv 1 capsule by mouth once dailyKeflex 500 mg Cap 500 mg = 1 cap(s), Oral, Daily, Take 1 tab day before procedure and 1 after procedure, # 2 cap(s), Refills(s) 0, Pharmacy: [facility]/pharmacy #[id number], 177, cm, 11/20/21 12:47:00 EDT, Height/Length Dosing, 90.3, kg, 11/20/21 12:47:00 EDT, Weight Dosing Start Date: 11/20/21 Status: Ordered Metformin & Diet Manage Prod (8 sources)Metformin & Diet Manage Prod Not-TakingMetformin & Diet Manage Prod ActiveSuprep Bowel Prep . (8 sources)Start: 36-42-7163Oxqcrg Bowel Prep . as directed Orally 1 for 1 August, Not-TakingStart: 04-48-5936Zpeaqu Bowel Prep . as directed Orally 1 for August, Active Problems Active Problems Problem ClassificationProblemDateDocumented DateEpisodic/ChronicAllergic reactions (3 sources)Allergic contact dermatitis due to plants, except food; Translations: [Allergic contact dermatitis due to plants, except food]EpisodicCalculus of urinary tract (7 sources)History of calculus of kidney; Translations: [H/O: urinary stone] 70-97-5495RvyzsuinRxsvnhy dysrhythmias (3 sources)Palpitations; Translations: [Palpitations]EpisodicChronic kidney disease (1 source)Chronic kidney disease; Translations: [CHRONIC KIDNEY DISEASE STAGE 3A]Onset: 67-65-5566Fhirqdz obstructive pulmonary disease and bronchiectasis (3 sources)Simple chronic bronchitis; Translations: [Simple chronic bronchitis] ChronicCoronary atherosclerosis and other heart disease (20 sources)Atherosclerotic heart disease of [place] coronary artery with unstable angina pectoris; Translations: [Atherosclerotic heart disease of [place] coronary artery without angina pectoris]Onset: 548246-66-7382Auoghvl Comment on above:LHC: PCI/stent RCA, LAD - 2006, PCI/stent RCA - 2015,PCI/stent OM Lcx - 2015,PCI/stent RCA x 2 - 2016PCI/stent LAD - 2016Deficiency and other anemia (10 sources)Anemia; Translations: [Anemia, unspecified]41-90-1865Zsljvfun Deficiency and other anemia (6 sources)Iron deficiency anemia; Translations: [Iron deficiency anemia, unspecified]EpisodicDeficiency and other anemia (2 sources)Anemia, unspecified; Translations: [Anemia, unspecified]Episodic Diabetes mellitus with complications (20 sources)Type 2 diabetes mellitus with hyperglycemia; Translations: [Type 2 diabetes mellitus with diabetic chronic kidney disease]Onset: 67-51-9134Nllnruk Diabetes mellitus without complication (15 sources)Type 2 diabetes mellitus without complications; Translations: [Type 2 diabetes mellitus]Onset: 005373-18-7046VvwbvvmPktbkrip mellitus without complication (6 sources)Glycosuria; Translations: [Glycosuria]Onset: EpisodicDiseases of white blood cells (11 sources)Lymphocytopenia; Translations: [Lymphocytopenia]Onset: 11-30-2021 89-21-9597GydsasrBhtjsdplf of lipid metabolism (20 sources)Hyperlipidemia, unspecified; Translations: [Hyperlipidemia]Onset: 559236-39-5028TrsnsrxWwaxouhkbr disorders (17 sources)Gastro-esophageal reflux disease without esophagitis; Translations: [Gastroesophageal reflux disease]Onset: 08-25-2013 Resolved: 035961-60-1640GfwtmooOtmcsyybq hypertension (20 sources)Essential (primary) hypertension; Translations: [Benign hypertension]Onset: 371138-33-6804ImikcjgZpxpvyhetrjds symptoms and ill- defined conditions (20 sources)Blood in urine; Translations: [Gross hematuria]Onset: 11-20-2021 EpisodicHyperplasia of prostate (20 sources)Benign prostatic hypertrophy with outflow obstruction; Translations: [Benign prostatic hyperplasia with lower urinary tract symptoms]Onset: 21-84-1260EtqzhtwYnpkzameulwen and screening for infectious disease (3 sources)Vaccination given; Translations: [Encounter for immunization]Episodic Inflammatory conditions of male genital organs (4 sources)Chronic utrbzmngkok95-83-0739NggwylpYjwhj disorders and dislocations; trauma-related (9 sources)Derangement of right knee; Translations: [Unspecified internal derangement of right knee]ChronicOsteoarthritis (3 sources)Osteoarthritis; Translations: [Polyosteoarthritis, unspecified]Onset: 76-69-0994RtqzldzIufyq aftercare (6 sources)exterminator helper (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) use of insulin; Translations: [exterminator helper (current) use of antithrombotics/antiplatelets]Onset: 64-26-6960QcrbzgfmYcvvo aftercare (8 sources)Long-term current use of insulin; Translations: [exterminator helper (current) use of insulin]EpisodicOther aftercare (1 source)Other long line teamster (current) drug therapyEpisodicOther gastrointestinal disorders (1 source)Abnormal feces; Translations: [Other fecal abnormalities]Onset: 19-47-6510SlcezutpFqlot gastrointestinal disorders (1 source)Stool DNA-based colorectal cancer screening positive; Translations: [Other fecal abnormalities]95-06-9739YoyzqdebJcjsj injuries and conditions due to external causes (3 sources)History of fall; Translations: [History of falling]EpisodicOther liver diseases (6 sources)Abnormal liver function; Translations: [Abnormal liver function study]ChronicOther lower respiratory disease (1 source)Shortness of breathEpisodicOther male genital disorders (4 sources)Pain in hwcjpgab23-77-3227RpphtiwhXrbcs male genital disorders (4 sources)Testicular ctfi24-11-2611VfrtjzvwAlxrt nervous system disorders (2 sources)Chronic pain; Translations: [Other chronic pain]ChronicOther nervous system disorders (1 source)Other chronic painChronicOther non-traumatic joint disorders (1 source)Pain in right kneeEpisodicOther nutritional; endocrine; and metabolic disorders (3 sources)Obesity; Translations: [Obesity, unspecified]Onset: 74-19-5895Zycqlac Other nutritional; endocrine; and metabolic disorders (2 sources)Uutkariwcb07-78-4912TqhofwsuIjtry nutritional; endocrine; and metabolic disorders (2 sources)Overweight in adulthood with body mass index of 25 or more but less than 7906-55-5425RemirlvxYqhqu nutritional; endocrine; and metabolic disorders (1 source)Weight decreased; Translations: [Abnormal weight loss]04-06-2024 EpisodicOther screening for suspected conditions (not mental disorders or infectious disease) (7 sources)Encounter for screening for malignant neoplasm of prostate; Translations: [Patient encounter status]EpisodicComment on above:PSA: 1.9 - 08/2023, 2.25 - 08/2024Other skin disorders (4 sources)Actinic uenyrrzck36-52-3734XenwwfmxJquim skin disorders (4 sources)Epidermoid cyst of rsjx12-69-8726GnryavlrXkpbc skin disorders (4 sources)Epidermoid cyst of skin of nvsy78-39-1992QhoemrwfTwovc skin disorders (4 sources)Senile kohwmhcymujnop31-78-1500KqhuwsobAywfu skin disorders (6 sources)Sebaceous cyst; Translations: [Sebaceous cyst]Onset: 11-21-2018 EpisodicResidual codes; unclassified (2 sources)H/O: Disorder; Translations: [Personal history of other specified conditions]Onset: 50-58-8401RhxbjpocJymxutrtzjd; intervertebral disc disorders; other back problems (3 sources)Lumbar spondylosis; Translations: [Spondylosis without myelopathy or radiculopathy, lumbar region]Onset: 353371-75-9952VfzdxuzXfpacgypike; intervertebral disc disorders; other back problems (11 sources)Sciatica; Translations: [Lumbago with sciatica, left side]Onset: 962770-18-9628YrbtkddcXhliugktz-gjoggzk disorders (3 sources)Tobacco user; Translations: [Nicotine dependence, cigarettes, in remission]ChronicUnclassified (1 source)Stenosis of coronary artery stent, initial encounter; Translations: [STENOSIS OF CORONARY ARTERY STENT, INITIAL ENCOUNTER]Onset: 04-15-2017 Unclassified (2 sources)Unknown / UNK(Unknown)Onset: 71-81-3968Encwezchrzxu (4 sources)Drug therapy mumnxlt57-69-9266Verxoyrpcfoc (4 sources)Finding of sensation of slbkkuf10-57-8749 Past or Other Problems Problem ClassificationProblemDateDocumented DateEpisodic/ChronicAbdominal pain (3 sources)Right upper quadrant pain; Translations: [Right upper quadrant pain] Onset: 71-63-7299AucjjntaHpbkz posthemorrhagic anemia (3 sources)Acute posthemorrhagic anemia; Translations: [Acute posthemorrhagic anemia]Onset: 52-40-4586OohwgndrStuvrvwfe infection; unspecified site (6 sources)Bacterial infectious disease; Translations: [Other bacterial infections of unspecified site]Onset: 72-40-5901GldgevocLxgeczrm atherosclerosis and other heart disease (1 source)Presence of coronary angioplasty implant and graft; Translations: [PRESENCE OF CORONARY ANGIOPLASTYIMPLANT AND GRAFT]Onset: 20-33-6854Qpfvbkwu Inflammatory conditions of male genital organs (3 sources)Acute prostatitis; Translations: [Acute prostatitis]Onset: 04-02-2018 EpisodicJoint disorders and dislocations; trauma-related (3 sources)Current tear of medial cartilage AND/OR meniscus of knee; Translations: [Other tear of cartilage ormeniscus of knee, current]Onset: 32-33-1359MdjgvtyiXvtpddf and fatigue (6 sources)Malaise; Translations: [Other malaise]Onset: 76-28-9832RmtbaznvWmvsij and vomiting (3 sources)Nausea; Translations: [Nausea]Onset: 60-00-0904CndfxrgxJhjxwdpabil chest pain (4 sources)Chest pain, unspecified; Translations: [CHEST PAIN, UNSPECIFIED] Onset: 56-10-6101WczccioeFrqwl non-traumatic joint disorders (3 sources)Arthralgia of the pelvic region and thigh; Translations: [Pain in joint, pelvic region and thigh]Onset: 54-57-4763XlfuoeseOroqs non-traumatic joint disorders (3 sources)Arthralgia of the lower leg; Translations: [Pain in joint, lower leg] Onset: 44-78-3118PpsfmkvpEybmiigiu or history of mental health and substance abuse (4 sources)Personal history of nicotine dependence; Translations: [History of tobacco use]Onset: 45-35-9867UevnvpvuCfophfoekten (3 sources)Long-term current use of drug therapy; Translations: [Long-term (current) use of other medications]Onset: 09-25-2016 Results Test NameValueInterpretationReference RangeFacilityBasophils Auto (Bld) [#/Vol] Ordered By: Theron Mendoza on 08-89-2165Pimkrqpii (Bld) [#/Vol]0.0 10 3/uL0.0-0.[address] [facility] HospitalBasophils/100 WBC Auto (Bld)Ordered By: Theron Mendoza on 99-51-8373Rcgwtasir/100 WBC (Bld)0.8 %0.2-2.0[facility] HospitalCholesterol in LDL Calc [Mass/Vol]Ordered By: Theron Mendoza on 52-20-0805Rsirzjbbnkq in LDL [Mass/Vol]36.6 mg/dLMercy Health St. Elizabeth Boardman HospitalComment on above:<100 mg/dl NVOQTPZ862-142 mg/dl NEAR OR ABOVE CVSEEOU967- 159 mg/dl BORDERLINE QHQK876-569 mg/dl HIGH>190 mg/dl VERY HIGHCholesterol in VLDL Calc [Mass/Vol]Ordered By: Theron Mendoza on 62-70-6700Xlybtbahsba in VLDL [Mass/Vol]25.4 mg/dLMercy Health St. Elizabeth Boardman HospitalEosinophils/100 WBC Auto (Bld)Ordered By: Theron Mendoza on 02-38-3583Bcxbysxliii/100 WBC (Bld)1.6 % 0.9-7.0[facility] HospitalErythrocyte distribution width Auto (RBC) [Ratio]Ordered By: Theron Mendoza on 63-78-7929Pqnxvqvcaba distribution width (RBC) [Ratio]14.3 %11.0-15.0[facility] HospitalEstimated glomerular filtration rate (GFR) non- AmericanOrdered By: Theron Mendoza on 34-87-2688SBX/1.73 sq M.predicted among non-blacks MDRD (S/P/Bld) [Vol rate/Area]mL/min/{1.73_m2}>=60 mL/min/1.73m 2FMcKitrick Hospital Globulin Calc (S) [Mass/Vol]Ordered By: Theron Mendoza on 04-63-3998Cktgwigb (S) [Mass/Vol]3.3 g/dLMercy Health St. Elizabeth Boardman HospitalGlucose mean value [Mass/volume] in Blood Estimated from glycated hemoglobinOrdered By: Theron Mendoza on 16-07-9628Duhauly glucose Estimated from glycated hemoglobin (Bld) [Mass/Vol]146 mg/dLMercy Health St. Elizabeth Boardman HospitalHematocrit Auto (Bld) [Volume fraction]Ordered By: Theron Mendoza on 67-18-1820Kfniyqjikk (Bld) [Volume fraction]38.3 %Low42.0-54.0[facility] HospitalHemoglobin A1c percentageOrdered By: Theron Mendoza on 65-42-1841GnM1s (Bld) [Mass fraction]6.7 %High4.5-6.2FMcKitrick HospitalComment on above:ADA RECOMMENDED LIMIT 4.0 - 6.0ADA THERAPEUTIC TARGET < 7.0ACTION SUGGESTED> 7.0Hemoglobin [Mass/volume] in BloodOrdered By: Theron Mendoza on 43-14-3008Eetitgmybl (Bld) [Mass/Vol]12.3 g/dLLow14.0-18.0[facility] HospitalLaboratory - Chemistry and Chemistry - challengeOrdered By: Theron Mendoza on 11-03-2024 Albumin [Mass/Vol]3.7 g/dL3.4-5.0[facility] HospitalALP [Catalytic activity/Vol]77 U/V34-687ZvphvpstrMercy Health St. Elizabeth Board[facility] HospitalALT [Catalytic activity/Vol]44 U/C87-22LcveadzkuMercy Health St. Elizabeth Board[facility] HospitalAST [Catalytic activity/Vol]30 U/L24-60UswsylaafMercy Health St. Elizabeth Board[facility] HospitalBilirubin [Mass/Vol]0.8 mg/dL0.2-1.0[facility] HospitalCalcium [Mass/Vol]9.1 mg/dL 8.5-10.1FMcKitrick HospitalChloride [Moles/Vol]107 mmol/L98-[address] [facility] HospitalCholesterol [Mass/Vol]105 mg/dL<=200[facility] HospitalCholesterol in HDL [Mass/Vol]43 mg/oG19-47VhmeemcqlMercy Health St. Elizabeth Boardman HospitalComment on above:> or =60 mg/dl - LOW CARDIOVASCULAR RISK<40 mg/dl - HIGH CARDIOVASCULAR RISKCO2 [Moles/Vol]28.4 mmol/L21.0-32.[address] [facility] HospitalCreatinine [Mass/Vol]0.86 mg/dL0.70-1.[address] [facility] HospitalGFR/1.73 sq M.predicted MDRD (S/P/Bld) [Vol rate/Area]mL/min/{1.73_m2}>=60 mL/min/1.73m 2FMcKitrick Hospital Glucose [Mass/Vol]116 mg/aJMaxe12-549PlaxkpsqqMercy Health St. Elizabeth [facility] HospitalPotassium [Moles/Vol]4.2 mmol/L3.5-5.1FMcKitrick HospitalProtein [Mass/Vol] 7.0 g/dL6.4-8.2FMetroHealth Main Campus Medical Centerodium [Moles/Vol]145 mmol/L 136-145[facility] HospitalTriglyceride [Mass/Vol]127 mg/dL<=[address] [facility] HospitalUrea nitrogen [Mass/Vol]21.0 mg/dLHigh7.0-18.[address] [facility] HospitalUrea nitrogen/Creatinine [Mass ratio]24.4 mg/mg [facility] HospitalLaboratory - Hematology and Cell countsOrdered By: Theron Mendoza on 58-49-7475Edcjncsv granulocytes/100 WBC (Bld)0.0 %0.0-0.[address] [facility] HospitalLeukocytes [#/volume] corrected for nucleated erythrocytes in Blood by Automated counOrdered By: Theron Mendoza on 11-03-2024 WBC corrected for nucl RBC Auto (Bld) [#/Vol]2.5 10 3/uLLow4.0-11.0[facility] HospitalLymphocytes Auto (Bld) [#/Vol]Ordered By: Theron Mednoza on 87-83-0730Fxmeagskcqw (Bld) [#/Vol]0.8 10 3/uLLow1.2-3.8[facility] HospitalLymphocytes/100 WBC Auto (Bld)Ordered By: Theron Mendoza on 42-87-3374Lrbebsbgjzp/100 WBC (Bld)33.1 %20.5-60.0[facility] HamiltonH Auto (RBC) [Entitic mass]Ordered By: Theron Mendoza on 00-38-5737GII (RBC) [Entitic mass]28.9 pg25.9-34.0[facility] HospitalMCHC Auto (RBC) [Mass/Vol]Ordered By: Theron Mendoza on 07-81-1344XRKD (RBC) [Mass/Vol]32.1 g/dL29.9-35.2FMcKitrick HospitalMCV Auto (RBC) [Entitic vol] Ordered By: Theron Mendoza on 88-56-2711EHW (RBC) [Entitic vol]89.9 fL80.0-94.[address] [facility] HospitalMicroalbumin [Mass/volume] in UrineOrdered By: Theron Mendoza on 01-67-2014Yryxafk DL <= 20 mg/L (U) [Mass/Vol]3.0 mg/dL<=30.[address] [facility] HospitalMonocytes Auto (Bld) [#/Vol]Ordered By: Theron Mendoza on 98-93-1435Asebupkir (Bld) [#/Vol]0.3 10 3/uL0.3-0.8[facility] HospitalMonocytes/100 WBC Auto (Bld)Ordered By: Theron Mendoza on 03-13-8928Gpqgcqkwc/100 WBC (Bld)10.2 %1.7-12.0[facility] Neutrophils Auto (Bld) [#/Vol]Ordered By: Theron Mendoza on 62-47-8496Peyxclwmkwz (Bld) [#/Vol]1.4 10 3/uL1.4-6.5FMcKitrick HospitalNeutrophils/100 WBC Auto (Bld)Ordered By: Theron Mendoza on 43-82-9045Lidweygangm/100 WBC (Bld) 54.3 %43.0-75.0[facility] HospitalNo Panel InformationOrdered By: Theron Mendoza on 18-84-7751Ozfcb Random Hinmvcevoe513.27 mg/dL20.00-300.[address] [facility] HospitalEosinophils # (Auto)0.0 10 3/uL0.0-0.7FMcKitrick HospitalImmature Granulocyte # (Auto)0.00 10 3/uL0.00-0.[address] [facility] HospitalPlatelet mean volume Auto (Bld) [Entitic vol] Ordered By: Theron Mendoza on 74-67-4696Woajgdpi mean volume (Bld) [Entitic vol] 10.6 fL9.5-13.5FMcKitrick HospitalPlatelets Auto (Bld) [#/Vol] Ordered By: Theron Mendoza on 75-17-2145Iofpbcyoe (Bld) [#/Vol]181 10 3/mX208-[address] [facility] HospitalRBC Auto (Bld) [#/Vol]Ordered By: Theron Mendoza on 73-02-0075HMM (Bld) [#/Vol]4.26 10 6/uLLow4.70-6.10[facility] Washington Townshiperum or plasma albumin/globulin mass ratioOrdered By: Theron Mendoza on 05-07-8326Qtkzkgf/Globulin [Mass ratio]1.1 {ratio}[facility] Washington Townshiperum or plasma anion gap determinationOrdered By: Theron Mendoza on 46-52-9999Fbhud gap [Moles/Vol]13.8 mmol/LFMcKitrick Hospital Serum or plasma total cholesterol/high density lipoprotein (HDL) cholesterol mass ratOrdered By: Theron Mendoza on 99-31-8002Wgsercursgl.total/Cholesterol in HDL [Mass ratio]2.4 {ratio}[facility] HospitalComment on above:3.3 - 4.4 LOW RISK4.4 - 7.1 AVERAGE RISK7.1 - 11.0 MODERATE RISK>11.0 HIGH RISKUrine microalbumin/creatinine mass ratioOrdered By: Theron Mendoza on 11-03-2024 Albumin/Creatinine DL <= 20 mg/L (U) [Mass ratio]16.6 mg/g0.0-29.9[facility] HospitalComment on above:NO MICROALBUMINURIA 0-29 MG/GCLINICAL MICROALBUMINURIA 30-300 MG/GMACROALBUMINURIA >300 MG/GAmbulatory Visit Summaryon [id number] Visit SummaryAmbulatory Visit Summary LISA LUGO :1950 Visit Date:10/02/2024 Ambulatory Visit Instructions Your Diagnosis BPH with urinary obstruction History of gross hematuria Your Care Team Attending Physician - Tom ARGUETA MD Primary Care Physician - THERON MENDOZA DO [...] Following Appointments Follow Up with LIZABETH NUÑEZ, Tom Cohen, URL When: Where: [address] [place] [address]- Medications What How Much When Instructions Unchanged [...] Tablets By Mouth Every day Contact prescribing physicianif questions or concerns Unchanged insulin glargine (Lantus Solostar Pen) 50 Units Subcutaneous Every day Contact prescribing physician if questions or concerns Unchanged pantoprazole (Pantoprazole [address] Tab) 1 Tablets By Mouth Every day Contact prescribingphysician if questions or concerns Unchanged pioglitazone (pioglitazone 15 mg Tab) By Mouth Every day Contact prescribing physician ifquestions or concerns Allergies No Known Medication Allergies [...] gland that is caused by the normal agingprocess. The prostate may get bigger as a man gets older. The condition is not caused by cancer. The prostate is a walnut-sized gland that is involved in the production of semen. It is located in front of the rectum and below the bladder. The bladder stores urine. The urethra carries stored urine ou t of the body. An enlarged prostate can press on the urethra. This can make it harder to pass urine. The buildup of urine in the bladder can cause infection. Back pressure and infection may progress to bladder damage and kidney (renal) failure. What are the causes? This condition is part of the normal aging process. However, not all men develop problems from thiscondition. If the prostate enlarges away from the urethra, urine flow will not be blocked. If it enlarges toward the urethra and compresses it, the (more content not included)...NormalPremier Health Miami Valley Hospital NorthUrology Office/Clinic Noteon [id number] Office/Clinic NoteUrology Office/Clinic Note Chief Complaint 1 year with [...] Information LIZABETH NUÑEZ, Tom Cohen, URL [address] [place] [address]- Additional Instructions: 1 year w/ PSA Patient Education Benign Prostatic Hyperplasia I, Jennifer Orozco, personally scribed for Dr. Argueta on 10/02/2024 11:16:08. Electronically signedby scribe Jennifer Orozco on 10/02/2024 11:16:08. Documentation recorded by the scribe, Jennifer Orozco, [...] Yes, 10/02/2024 Family History (more content not included)...[facility] Comment on above:Result Comment: Electronically Signed By: Tom ARGUETA MD\.br\Date and Time Signed: 10/02/24 11:17 EDT\.br\Electronically Co-Signed By: Jennifer Orozco\.br\Date and Time Co-Signed: 10/02/2510:16 EDTNo Panel Informationon 92-01-0216Gtvifssx Specific Antigen Total2.25 ng/mL<=4.00[facility] HospitalAmbulatory Visit Summaryon 15-27-0742Gkpmlezmez Visit SummaryAmbulatory Visit Summary LISA LUGO :1950 Visit Date:12/18/2023 [...] Cystoscopy (08/31/2008), Urodynamics (08/25/2008), Transrectal biopsy of pro state using ultrasound (US) guidance (08/03/2008), Arthroscopy of [...] NUÑEZ, Tom Cohen Where: [facility] [address] [place] [address]- Medications What How Much When Instructions Unchanged [...] Tablets By Mouth Every day Contact prescribing physicianif questions or concerns Unchanged insulin glargine (Lantus Solostar Pen) 50 Units Subcutaneous Every day Contact prescribing physician if questions or concerns Unchanged pantoprazole (Pantoprazole [address] Tab) 1 Tablets By Mouth Every day Contact prescribingphysician if questions or concerns Unchanged pioglitazone (pioglitazone 15 mg Tab) By Mouth Every day Contact prescribing physician ifquestions or concerns Allergies No Known Allergies No [...] you for choosing us for your care. NormalPremier Health Miami Valley Hospital NorthCholesterol in LDL Calc [Mass/Vol]on 10-08-1812Utrmetafuat in LDL [Mass/Vol]42.0 mg/dLMercy Health St. Elizabeth Boardman HospitalComment on above:<100 mg/dl LNBLLBS784-203 mg/dl NEAR OR ABOVE PZCTICR061-860 mg/dl BORDERLINE YUIQ323-097 mg/dl HIGH>190 mg/dl VERY HIGH Cholesterol in VLDL Calc [Mass/Vol]on 51-25-1315Mdwqbptfdaj in VLDL [Mass/Vol] 35.6 mg/dLMercy Health St. Elizabeth Boardman HospitalEstimated glomerular filtration rate (GFR) non- Americanon 80-92-6192YGO/1.73 sq M.predicted among non-blacks MDRD (S/P/Bld) [Vol rate/Area]mL/min/{1.73_m2}>=60[facility] HospitalGlobulin Calc (S) [Mass/Vol]on 11-73-6635Jsbtqnjt (S) [Mass/Vol]3.3 g/dL [facility] HospitalGlucose mean value [Mass/volume] in Blood Estimated from glycated hemoglobinon 01-26-8718Uiaqlbm glucose Estimated from glycated hemoglobin (Bld) [Mass/Vol]143 mg/dLMercy Health St. Elizabeth [facility] Hospital Laboratory - Chemistry and Chemistry - challengeon 72-99-9671Hpgarhh [Mass/Vol] 4.0 g/dL3.4-5.0[facility] HospitalALP [Catalytic activity/Vol]74 U/B32-741LccewnaezMercy Health St. Elizabeth Boardman HospitalALT [Catalytic activity/Vol]48 U/L 16-63[facility] HospitalAST [Catalytic activity/Vol]34 U/L15-[address] [facility] HospitalBilirubin [Mass/Vol]0.9 mg/dL0.2-1.0[facility] HospitalCalcium [Mass/Vol]8.6 mg/dL8.5-10.1FMcKitrick HospitalChloride [Moles/Vol]103 mmol/F19-582YfjdlfcaqMercy Health St. Elizabeth Board[facility] HospitalCholesterol [Mass/Vol]119 mg/dL<=200[facility] Cholesterol in HDL [Mass/Vol]42 mg/gW92-42IfhijemswMercy Health St. [facility] Hospital Comment on above:> or =60 mg/dl - LOW CARDIOVASCULAR RISK<40 mg/dl - HIGH CARDIOVASCULAR RISKCO2 [Moles/Vol]28.3 mmol/L21.0-32.0[facility] HospitalCreatinine [Mass/Vol]1.10 mg/dL0.70-1.30[facility] GFR/1.73 sq M.predicted MDRD (S/P/Bld) [Vol rate/Area]mL/min/{1.73_m2}>=[address] [facility] HospitalGlucose [Mass/Vol]139 mg/vRObmh16-644CrprbllliMercy Health St. Elizabeth Boardman HospitalPotassium [Moles/Vol]4.1 mmol/L3.5-5.1FMcKitrick HospitalProtein [Mass/Vol]7.3 g/dL6.4-8.2FMcKitrick Hospital Sodium [Moles/Vol]141 mmol/W656-487KpqlmgukiMercy Health St. Elizabeth Boardman HospitalTriglyceride [Mass/Vol]178 mg/dLHigh<=150[facility] HospitalUrea nitrogen [Mass/Vol]21.0 mg/dLHigh7.0-18.0[facility] HospitalUrea nitrogen/Creatinine [Mass ratio]19.1 mg/mgMercy Health St. [facility] Hospital Laboratory - Hematology and Cell countson 30-86-0375KoX8e (Bld) [Mass fraction] 6.6 %High4.5-6.2FMcKitrick HospitalComment on above:ADA RECOMMENDED LIMIT 4.0 - 6.0ADA THERAPEUTIC TARGET < 7.0ACTION SUGGESTED> 7.0 Microalbumin [Mass/volume] in Urineon 18-23-3611Zshsgdl DL <= 20 mg/L (U) [Mass/Vol]3.4 mg/dL<=30.0[facility] [place] Townshiperum or plasma albumin/globulin mass ratioon 70-35-8080Nosvtlx/Globulin [Mass ratio]1.2 {ratio} [facility] [place] Townshiperum or plasma anion gap determinationon 81-61-1168Wskxr gap [Moles/Vol]13.8 mmol/LFMetroHealth Main Campus Medical Centererum or plasma total cholesterol/high density lipoprotein (HDL) cholesterol mass rat on 43-78-1254Quoahjgnyef.total/Cholesterol in HDL [Mass ratio]2.8 {ratio} [facility] HospitalComment on above:3.3 - 4.4 LOW RISK4.4 - 7.1 AVERAGE RISK7.1 - 11.0 MODERATE RISK>11.0 HIGH RISKNo Panel Informationon 31-78-1034Nbod Prostate Specific Antigen0.78 ng/mLN/AFMcKitrick HospitalComment on above:Augustina ECLIA methodology.Prostate Specific Antigen Total 1.9 ng/mL0.0-4.0[facility] HospitalComment on above:Augustina ECLIA methodology.According to the [employer], Serum PSAshould decrease and remain at undetectable levels afterradical prostatectomy. The AUA defines biochemicalrecurrence as an initial PSA value 0.2 ng/mL or greaterfollowed by a subsequent confirmatory PSA value 0.2 ng/mLor greater. Values obtained with different assay methods orkits cannot be used interchangeably. Results cannot beinterpreted as absolute evidence of the presence or absenceof malignant disease.Serum or plasma free prostate specific antigen (PSA)/total PSA ratioon 27-07-3218Jila PSA/Total PSA [Mass fraction]41.1 %.[facility] HospitalComment on above:The table below lists the probability of prostate cancer formen with non-suspicious AYO results andtotal PSA between4 and 10 ng/mL, by patient age (Luanne et al, JULISSA 1998,279:1542). % Free PSA 50-64 yr 65-75 yr 0.00-10.00% 56% 55% 10.01-15.00% 24% 35% 15.01- 20.00% 17% 23% 20.01-25.00% 10% 20% >25.00% 5% 9%Please note: Catalona et al did not make specific recommendations regarding the use of percent free PSA for any other population of men.Performed at: [facility] [id number] Director: Guanakito Cota PhD, Phone: [phone] GLYCOHEMOGLOBIN A1Con 51-68-0292XVZ RECOMMENDATIONSEE BELOWHenry County HospitalComment on above:Result Comment: ADA RECOMMENDED LIMIT 4.0 - 6.0 ADA THERAPEUTIC TARGET < 7.0 ACTION SUGGESTED > 7.0Performed By: #### A1C #### [facility] [address] [place] [address] Dr. Yara ChavezGlucose [Mass/Vol]166 mg/dLHenry County HospitalComment on above:Performed By: #### A1C #### [facility] [address] [place] [address] Dr. Yara ChavezHbA1c (Bld) [Mass fraction]7.4 %Critically high4.5-6.2The [facility] CampusComment on above:Performed By: #### A1C #### [facility] [address] [place] [address] Dr. Yara ChavezCT ABD/PELV W CONon 87-94-6428NF ABD/PELV W CONEXAM: CT ABD/PELV W CON STUDY DATE: 11/25/2021 [...] Electronically authenticated by: PARAS SOMMERS Date: 2021-11-26 02:01NormalThOhioHealth Grove City Methodist HospitalCB AUTO DIFFon 55-77-3107JWVM #0.0 103/ulNormal0.0-0.1[facility] HospitalComment on above:Performed By: #### CBC #### [facility] [address] [place] [address] Dr. Yara ChavezBasophils/100 WBC (Bld)0.7 %Normal0.2-2.0[facility] Comment on above:Performed By: #### CBC #### [facility] [address] [address] [address] Yara Shepard #0.0 103/ulNormal0.0-0.7The [facility] CampusComment on above: Performed By: #### CBC #### [facility] [address] [address] [address] Yara Jamaosinophils/100 WBC (Bld)1.0 %Normal0.9-7.0[facility] Comment on above:Performed By: #### CBC #### [facility] [address] [place] [address] Dr. Yara Jamarythrocyte distribution width (RBC) [Ratio]14.7 %Dguxme78.0-15.0 [facility] HospitalComment on above:Performed By: #### CBC #### [facility] [address] [place] [address] Dr. Yara ChavezHematocrit (Bld) [Volume fraction]38.7 %Critically low42.0-54.0 The [facility] CampusComment on above:Performed By: #### CBC #### [facility] [address] [place] [address] Dr. Yara ChavezHemoglobin (Bld) [Mass/Vol]12.3 g/dLCritically low14.0-18.0The [facility] CampusComment on above:Performed By: #### CBC #### [facility] [address] [place] [address] Dr. Yara Sanchez #0.01 10e3/ulNormal0.00-0.03The [facility] CampusComment on above:Performed By: #### CBC #### [facility] [address] [place] [address] Dr. Yara Sanchez %0.3 %Normal0.0-0.5ThOhioHealth Grove City Methodist HospitalComment on above: Performed By: #### CBC #### [facility] [address] [place] [address] Dr. Yara EdmodnsonH #1.1 103/ulCritically low1.2-3.8The [facility] Comment on above:Performed By: #### CBC #### [facility] [address] [place] [address] Dr. Yara Mccraymphocytes/100 WBC (Bld)36.1 %Bvxtan04.5-60.0The [facility] CampusComment on above:Performed By: #### CBC #### [facility] [address] [place] [address] Dr. Yara Griggs DIFF REQNONormalThe [facility] CampusComment on above: Performed By: #### CBC #### [facility] [address] [place] [address] Dr. Yara Tinajero (RBC) [Entitic mass]28.0 bbFziufn27.9-34.0The [facility] HospitalComment on above:Performed By: #### CBC #### [facility] [address] [place] [address] Dr. Yara Tinajero (RBC) [Mass/Vol]31.8 g/kLEafyob00.9-35.2The [facility] CampusComment on above:Performed By: #### CBC #### [facility] [address] [place] [address] Dr. Yara Tinajero (RBC) [Entitic vol]88.2 cJOvsuoq05.0-94.0The [facility] CampusComment on above:Performed By: #### CBC #### [facility] [address] [place] [address] Dr. Yara Kincaid #0.3 103/ulNormal0.3-0.8The [facility] CampusComment on above:Performed By: #### CBC #### [facility] [address] [place] [address] Dr. Yara Mcmahonocytes/100 WBC (Bld)9.5 %Normal1.7-12.0The [facility] Comment on above:Performed By: #### CBC #### [facility] [address] [place] [address] Dr. Yara Keene #1.5 103/ulNormal1.4-6.5The [facility] CampusComment on above:Performed By: #### CBC #### [facility] [address] [place] [address] Dr. Yara Andreautrophils/100 WBC (Bld)52.4 %Mtsgdp94.0-75.0The [facility] CampusComment on above:Performed By: #### CBC #### [facility] [address] [place] [address] Dr. Yara Dawkins mean volume (Bld) [Entitic vol]10.1 fLNormal9.5-13.5The [facility] CampusComment on above:Performed By: #### CBC #### [facility] [address] [address] [address] Yara ChavezPLT195 103/xeQwgofy426-768Vcu [facility] CampusComment on above: Performed By: #### CBC #### [facility] [address] [place] [address] Dr. Yara ChavezRBC4.39 106/ulCritically low4.70-6.10The [facility] CampusComment on above:Performed By: #### CBC #### [facility] [address] [place] [address] Dr. Yara ChavezWBC2.9 103/ulCritically low4.0-11.0The [facility] CampusComment on above:Performed By: #### CBC #### [facility] [address] [place] [address] Dr. Yara ZuluagaID PROFILEon 69-18-2705CAYC-HDL RATIO NORMSLicking Memorial HospitalComment on above:Result Comment: 3.3 - 4.4 LOW RISK 4.4 - 7.1 AVERAGE RISK 7.1 - 11.0 MODERATE RISK >11.0 HIGH RISKPerformed By: #### ALT, BMP, LIPID #### [facility] [address] [place] [address] Dr. Yara Villafuerteesterol [Mass/Vol]124 mg/dLNormal<=200The [facility] Comment on above:Performed By: #### ALT, BMP, LIPID #### [facility] [address] [place] [address] Dr. Yara Villafuerteesterol in HDL [Mass/Vol]41 mg/sGRggxpb84-64Aun [facility] CampusComment on above:Performed By: #### ALT, BMP, LIPID #### [facility] [address] [place] [address] Dr. Yara Villafuerteesterol in LDL [Mass/Vol]56.8 mg/dLNoCleveland Clinic Hillcrest HospitalComment on above:Performed By: #### ALT, BMP, LIPID #### [facility] [address] [place] [address] Dr. Yara ChavezCholesterol.total/Cholesterol in HDL [Mass ratio]3.0 {ratio} NormalThe [facility] CampusComment on above:Performed By: #### ALT, BMP, LIPID #### [facility] [address] [address] [address] Yara Multani NORMAL> or = 60 mg/dl - LOW CARDIOVASCULAR RISK <40 mg/dl - HIGH CARDIOVASCULAR RISKHenry County HospitalComment on above:Performed By: #### ALT, BMP, LIPID #### [facility] [address] [place] [address] Dr. Yara Norris CALC NORMALSEE BELOWHenry County HospitalComment on above:Result Comment: <100 mg/dl OPTIMAL 100 - 129 mg/dl NEAR OR ABOVE OPTIMAL 130 - 159 mg/dl BORDERLINE HIGH 160 - 189 mg/dl HIGH >190 mg/dl VERY HIGH Performed By: #### ALT, BMP, LIPID #### [facility] [address] [place] [address] Dr. Yara ChavezTriglyceride [Mass/Vol]131 mg/dLNormal<=150The [facility] Comment on above:Performed By: #### ALT, BMP, LIPID #### [facility] [address] [place] [address] Dr. Yara CaldwellLDL CALC26.2 mg/dLNoCleveland Clinic Hillcrest HospitalComment on above: Performed By: #### ALT, BMP, LIPID #### [facility] [address] [address] [address] Yara AlbaALBUMIN, RAND URon 79-32-4280bELE0.4 mg/LNormal<=30.0The [facility] CampusComment on above:Performed By: #### MALBR #### [facility] [address] [place] [address] Dr. Yara ChavezPROF CHEM 8 (BAS METB)on 23-30-3564Hhdfl gap [Moles/Vol]10.1 mmol/LNormalAultman HospitalComment on above:Performed By: #### ALT, BMP, LIPID #### [facility] [address] [place] [address] Dr. Yara ChavezCalcium [Mass/Vol]9.0 mg/dLNormal8.5-10.1[facility] Comment on above:Performed By: #### ALT, BMP, LIPID #### [facility] [address] [place] [address] Dr. Yara ChavezChloride [Moles/Vol]105 mmol/XJweopu17-273Wmr [facility] Comment on above:Performed By: #### ALT, BMP, LIPID #### [facility] [address] [place] [address] Dr. Yara ChavezCO2 [Moles/Vol]31.3 mmol/OPacblg95.0-32.0[facility] Comment on above:Performed By: #### ALT, BMP, LIPID #### [facility] [address] [place] [address] Dr. Yara ChavezCreatinine [Mass/Vol]1.24 mg/dLNormal0.70-1.30The [facility] CampusComment on above:Performed By: #### ALT, BMP, LIPID #### [facility] [address] [place] [address] Dr. Yara JamaGFR-AF UZBEK>60Normal>=60The [facility] CampusComment on above:Performed By: #### ALT, BMP, LIPID #### [facility] [address] [place] [address] Dr. Yara JamaGFR-NON AF MKRNNHNW29 mL/min/1.79j1Qvdthwyumc low>=60The [facility] CampusComment on above:Performed By: #### ALT, BMP, LIPID #### [facility] [address] [place] [address] Dr. Yara ChavezGlucose [Mass/Vol]102 mg/jMGzbgya05-037Sya [facility] Comment on above:Performed By: #### ALT, BMP, LIPID #### [facility] [address] [address] [address] Yara ChavezPotassium [Moles/Vol]4.4 mmol/LNormal3.5-5.1The [facility] Comment on above:Performed By: #### ALT, BMP, LIPID #### [facility] [address] [address] [address] Yara ChavezSodium [Moles/Vol]142 mmol/DUydipd838-330Wun [facility] Comment on above:Performed By: #### ALT, BMP, LIPID #### [facility] [address] [address] [address] Yara ChavezUrea nitrogen [Mass/Vol]22.0 mg/dLCritically high7.0-18.0The [facility] CampusComment on above:Performed By: #### ALT, BMP, LIPID #### [facility] [address] [address] [address] Yara Patrick nitrogen/Creatinine [Mass ratio]17.7 mg/mgNoCleveland Clinic Hillcrest HospitalComment on above:Performed By: #### ALT, BMP, LIPID #### [facility] [address] [address] [address] Yara Zapata 12-29-3324SUG [Catalytic activity/Vol]48 U/UBnalsp57-03RbeAultman HospitalComment on above:Performed By: #### ALT, BMP, LIPID #### [facility] [address] [address] [address] Yara ChavezGLYCOHEMOGLOBIN A1Con 16-28-6259BPS RECOMMENDATIONSEE BELOWNormal The [facility] CampusComment on above:Result Comment: ADA RECOMMENDED LIMIT 4.0 - 6.0 ADA THERAPEUTIC TARGET < 7.0 ACTION SUGGESTED > 7.0Performed By: #### A1C #### [facility] [address] [place] [address] Dr. Yara ChavezGlucose [Mass/Vol]169 mg/dLNoCleveland Clinic Hillcrest HospitalComment on above:Performed By: #### A1C #### [facility] [address] [address] [address] Yara ChavezHbA1c (Bld) [Mass fraction]7.5 %Critically high4.5-6.2The [facility] CampusComment on above:Performed By: #### A1C #### [facility] [address] [address] [address] Yara ChavezPROF CHEM 8 (BAS METB)on 59-46-3654Kavpe gap [Moles/Vol]12.0 mmol/LNormalThe [facility] CampusComment on above:Performed By: #### BMP #### [facility] [address] [address] [address] Yara ChavezCalcium [Mass/Vol]8.7 mg/dLNormal8.5-10.1The [facility] Comment on above:Performed By: #### BMP #### [facility] [address] [address] [address] Yara ChavezChloride [Moles/Vol]103 mmol/BXhirgi64-604Gpo [facility] Comment on above:Performed By: #### BMP #### [facility] [address] [address] [address] Yara ChavezCO2 [Moles/Vol]29.1 mmol/DBqggyj05.0-32.0The [facility] Comment on above:Performed By: #### BMP #### [facility] [address] [address] [address] Yara ChavezCreatinine [Mass/Vol]1.17 mg/dLNormal0.70-1.30The [facility] CampusComment on above:Performed By: #### BMP #### [facility] [address] [address] [address] Livingston ChangEGFR-AF UZBEK>60Normal>=60The [facility] CampusComment on above:Performed By: #### BMP #### [facility] [address] [address] [address] Livingston ChangEGFR-NON AF UZBEK>60Normal>=60The [facility] CampusComment on above:Performed By: #### BMP #### [facility] [address] [address] [address] Yara ChavezGlucose [Mass/Vol]144 mg/dLCritically mivf09-456Exk [facility] CampusComment on above:Performed By: #### BMP #### [facility] [address] [address] [address] Yara ChavezPotassium [Moles/Vol]4.1 mmol/LNormal3.5-5.1The [facility] Comment on above:Performed By: #### BMP #### [facility] [address] [address] [address] Yara ChavezSodium [Moles/Vol]140 mmol/MVsbmox421-966Pqc [facility] Comment on above:Performed By: #### BMP #### [facility] [address] [address] [address] Yara ChavezUrea nitrogen [Mass/Vol]18.0 mg/dLNormal7.0-18.0The [facility] CampusComment on above:Performed By: #### BMP #### [facility] [address] [address] [address] Yara Patrick nitrogen/Creatinine [Mass ratio]15.4 mg/mgNormalThe Trinity Health System East CampusComment on above:Performed By: #### BMP #### [facility] [address] [place] [address] Dr. Yara ChavezCNOVSGuillaume 65-86-1997LQDQLBEcdyg (SP) Office (HEMASA) LISA LUGO ([id number]) 1950 M Date Time Provider Department 04/02/19 11:15 AM THAIS HEBERT During your visit today, we recorded the following information about you: Temperature Pulse Respiration Blood pressure 98.1 degrees 72/minute 16/minute 131/69 Weight Height 80.5 kg 1.778 m Thais Agrawal DO Anup 04/03/2019 1:15 PM Signed PATIENT NAME: Lisa Lugo REFERRING PHYSICIAN: Theron Mendoza MD ([facility]) [address] [id number] PRIMARY CARE PHYSICIAN: Theron Mendoza MD CHIEF [...] PANEL - CBC + DIFF (FOR REMOTE [facility] USE) - IRON + TIBC - FERRITIN BLD - VITAMIN B12 BLOOD - FOLATE SERUM - METHYLMALONIC ACID - HEP REMOTE PANEL BL - SED RATE [facility] Return labs today. f/u [...] questions satisfactorily.. Francois Hebert D.O. Medical Oncologist [place], [place] Referring Provider: THERON MENDOZA [[id number]] Allergies As of Date: 04/02/2019 (No Known Allergies) Date Reviewed: 04/02/2019 Reviewed by: Dorene Germain - Fully Assessed Reason for Visit: abdnormal lab [Other] Cmt: new patient consultation Primary Visit Diagnosis:Leukopenia, unspecified type [D72.819] Other Visit Diagnosis:Abnormal finding of blood chemistry, unspecified [R79.9] Order(s):PROTEIN ELECTROPHORESIS W/INTERP [SQSEPG] Order #: [id number] FUTURE MONOCLONAL PROTEIN, SERUM (BLOOD) [SQSERMPA] Order #: [id number] FUTURE IMMUNOGLOBULINS SHANIA [SQSERIMM] Order #: [id number] FUTURE LD LACTATE DEHYDRO [SQLD6] Order #: [id number] FUTURE COMP METABOLIC PANEL [SQCMP] Order #: [id number] FUTURE CBC + DIFF (FOR REMOTE [facility] USE) [SQRCBCDF] Order #: [id number] FUTURE IRON + TIBC [SQIRON] Order #: [id number] FUTURE FERRITIN BLD [SQFERR] Order #: [id number] FUTURE VITAMIN B12 BLOOD [SQB12] Order #: [id number] FUTURE FOLATE SERUM [SQSERFOL] Order #: [id number] FUTURE METHYLMALONIC ACID [SQMMA] Order #: [id number] FUTURE HEP REMOTE PANEL BL [SQHREMOP] Order #: [id number] FUTURE SED RATE WESTERGREN [SQWSR] Order #: [id number] FUTURE Disposition: Return labs today. f/u 6 [...] Encounter Status:Closed by THAIS HEBERT DO on 04/03/19NormalCTrinity Health System [facility] Campus Metabolic Panelon 31-63-6685Qwdidlk [Mass/Vol]4.4 g/dL Normal3.9-4.9CMercy Health Clermont HospitalALP [Catalytic activity/Vol]102 U/LNormal 38-113[facility] ClevelandALT [Catalytic activity/Vol]53 U/YPnqjph26-04 [facility] CenterAnion gap [Moles/Vol]13 mmol/LNormal9-18[facility] Cleclermont county hospitalAST [Catalytic activity/Vol]31 U/JPhvnol76-90PdusfkkvkCommunity Regional Medical CenterBilirubin [Mass/Vol]0.6 mg/dLNormal0.2-1.3CMercy Health Clermont Hospital Calcium [Mass/Vol]9.6 mg/dLNormal8.5-10.2CMercy Health Clermont HospitalChloride [Moles/Vol]98 mmol/SBhswrj16-642HezshukolCommunity Regional Medical CenterCO2 [Moles/Vol]24 mmol/HSbdxtv94-89YuihuueicCommunity Regional Medical CenterCreatinine [Mass/Vol]0.94 mg/dLNormal 0.73-1.22[facility] Medical CentereGFR- Amer.>60NormalCMercy Health Clermont HospitalGFR/1.73 sq M predicted among non-blacks MDRD (S/P/Bld) [Vol rate/Area] mL/min/{1.73_m2}NormalSuburban Community Hospital & [facility] on above:Result Comment: eGFR (Estimated GFR) Units of measure: [...] the eGFR may not accurately reflect actual GFR.Glucose [Mass/Vol]257 mg/dLHigh 74-99[facility] on above:Result Comment: The [place] Diabetes Association (ADA) provides guidance for cutoff [...] Standards of Medical Care in Diabetes 2016, [place] Diabetes Association. Diabetes Care. 2016.39(Suppl 1).Potassium [Moles/Vol]4.8 mmol/L Normal3.7-5.1CMercy Health Clermont HospitalProtein [Mass/Vol]7.4 g/dLNormal6.3-8.0 [facility] CenterSodium [Moles/Vol]135 mmol/UMjj158-594EpeqyusjoCommunity Regional Medical CenterUrea nitrogen [Mass/Vol]19 mg/dLNormal9-24[facility] Ferritinon 01-56-0182Upcnvkem [Mass/Vol]279.0 ng/aCLwdaql37.3-565.7CTrinity Health System [facility] on above:Performed By: #### WSR, B12, SERFOL, IRON, FERR, SERIMM, HREMOP, SERMPA, SEPG, MMA #### [facility] [address] [address] Xlnygj, Serumon 88-72-0879Vtwmdu [Mass/Vol]ng/mLNormal>4.7CTrinity Health System Twin City Medical Center on above:Result Comment: A result of > 20 ng/mL is not necessarily indicative of a pathologic or treatable condition: it reflects a limitation of the test methodology. Assay reference range: 4.8 to 24.2 ng/mL. Suitable for detection of folate deficiency. Reference: Folate III (Folate III) [package insert V 2.0 Spanish]. [facility], [place], [place]: February 2015.Performed By: #### WSR, B12, SERFOL, IRON, FERR, SERIMM, HREMOP, SERMPA, SEPG, MMA #### [address] [address] Kbwzvemgf Remote Panelon 50-47-1101NHmGgUgpkcdyeJfkagdWajixxgh [facility] CenterComforest health medical center on above:Performed By: #### WSR, B12, SERFOL, IRON, FERR, SERIMM, HREMOP, SERMPA, SEPG, MMA #### [address] [address] Fws B Core Ab,TotalNegativeNormalNegativeCommunity Regional Medical Center Comment on above:Performed By: #### WSR, B12, SERFOL, IRON, FERR, SERIMM, HREMOP, SERMPA, SEPG, MMA #### [address] [address] Rzavwcjlv C Ab IANegativeNormalNegativeCommunity Regional Medical Center Comment on above:Performed By: #### WSR, B12, SERFOL, IRON, FERR, SERIMM, HREMOP, SERMPA, SEPG, MMA #### [address] [address] PvsE Surface Ab,QualNegativeNormalNegativeCommunity Regional Medical Center Comment on above:Result Comment: NEGATIVEPerformed By: #### WSR, B12, SERFOL, IRON, FERR, SERIMM, HREMOP, SERMPA, SEPG, MMA #### [address] [address] Wspabquwchgoucn GAMon 63-03-4338PxV [Mass/Vol]323 mg/nMJjuoix14-927 [facility] CenterComment on above:Performed By: #### WSR, B12, SERFOL, IRON, FERR, SERIMM, HREMOP, SERMPA, SEPG, MMA #### [address] [address] GuN [Mass/Vol]981 mg/zZEbllby002-0550Afktwhglh Clinic Cleveland Comment on above:Performed By: #### WSR, B12, SERFOL, IRON, FERR, SERIMM, HREMOP, SERMPA, SEPG, MMA #### [address] [address] ZaS [Mass/Vol]133 mg/wWDjmrxm59-229YrztwnwnxSuburban Community Hospital & [facility] on above:Performed By: #### WSR, B12, SERFOL, IRON, FERR, SERIMM, HREMOP, SERMPA, SEPG, MMA #### [address] [address] Dzet and TIBCon 03-09-8982Nrzj [Mass/Vol]80 ug/aUKehoxu22-010 [facility] on above:Performed By: #### WSR, B12, SERFOL, IRON, FERR, SERIMM, HREMOP, SERMPA, SEPG, MMA #### [address] [address] AZTJ288 ug/wARtowqa756-216YgsqgvwfgSuburban Community Hospital & [facility] on above:Performed By: #### WSR, B12, SERFOL, IRON, FERR, SERIMM, HREMOP, SERMPA, SEPG, MMA #### [address] [address] Swbpbgtekzz Yqbyaond31 %Whfglz39-01BbzzovkooSuburban Community Hospital & [facility] on above:Performed By: #### WSR, B12, SERFOL, IRON, FERR, SERIMM, HREMOP, SERMPA, SEPG, MMA #### [address] [address] [address] [place], [place] [address] WPhu 24-74-8883CD027 U/SKxg128-132McqywckfwSuburban Community Hospital & [facility] on above:Performed By: #### WSR, B12, SERFOL, IRON, FERR, SERIMM, HREMOP, SERMPA, SEPG, MMA #### [facility] [address] [place], [place] [address] Ftyuenctjgthl Acidon 94-99-7415Snvmhkstlatej Geus746 nmol/LNormal 79-376[facility] on above:Result Comment: This test was developed and its performance characteristics determined by [facility] [place] ([facility]). It has not been cleared or approved by the FDA. [facility] is regulated under CLIA as qualified to perform high complexity testing. This test is used for clinical purposes. It should not be regarded as investigational or for research.Performed By: #### WSR, B12, SERFOL, IRON, FERR, SERIMM, HREMOP, SERMPA, SEPG, MMA ####[address] [phone] Protein, Seron 04-02-2019K/L Ratio, Serum1.67Zaxr6.26-1.65[facility] on above:Performed By: #### WSR, B12, SERFOL, IRON, FERR, SERIMM, HREMOP, SERMPA, SEPG, MMA ####[address], [place] [phone], Free, Serum47.1 mg/LHigh3.30-19.40[facility] on above:Result Comment: Test performed by an immunoturbidimetric assay on Cloudvulite instrument from [facility]. Immunoglobulin free light chain assay results should be interpreted in conjunction with other tests and in correlation with clinical picture.Performed By: #### WSR, B12, SERFOL, IRON, FERR, SERIMM, HREMOP, SERMPA, SEPG, MMA ####[address] [address] [address] AveCAll[place], [place] [phone], Free, Serum25.0 mg/LNormal5.7-26.3CTrinity Health System Twin City [facility] Center on above:Result Comment: Test performed by an immunoturbidimetric assay on Cloudvulite instrument from [facility]. Immunoglobulin free light chain assay results should be interpreted in conjunction with other tests and in correlation with clinical picture.Performed By: #### WSR, B12, SERFOL, IRON, FERR, SERIMM, HREMOP, SERMPA, SEPG, MMA ####[address] [address] [address] AveCLindsey [address] [phone] Serum ZgH083 mg/eMBvsshv26-517NckbjrxdjCommunity Regional Medical Center Comment on above:Performed By: #### WSR, B12, SERFOL, IRON, FERR, SERIMM, HREMOP, SERMPA, SEPG, MMA ####[address] [address] [address] AveCAll[place], [place] [phone] Serum OfW093 mg/qGOxzkcv405-0876 [facility] on above:Performed By: #### WSR, B12, SERFOL, IRON, FERR, SERIMM, HREMOP, SERMPA, SEPG, MMA ####[address], [place] [phone] Serum FaE769 mg/uZZpaqsf86-648PmkbjfwbjSuburban Community Hospital & [facility] on above:Performed By: #### WSR, B12, SERFOL, IRON, FERR, SERIMM, HREMOP, SERMPA, SEPG, MMA ####[address] [address] [address] AveCLindsey [address] [phone] [Mass/Vol]No M protein is identified.NormalNo M protein is identified.[facility] on above:Performed By: #### WSR, B12, SERFOL, IRON, FERR, SERIMM, HREMOP, SERMPA, SEPG, MMA ####[facility] [address] [place], [place] [phone] ReviewReviewed by Chadd Ackerman MD ([phone])NormalCommunity Regional Medical CenterComment on above: Performed By: #### WSR, B12, SERFOL, IRON, FERR, SERIMM, HREMOP, SERMPA, SEPG, MMA ####[facility] [address] [place], [place] [phone] 08-04-5365UPKEOASXSEX ID: [id number] Author: Thais Hebert Service: ? Author Type: Physician Type: Progress Notes Filed: 04/03/2019 1:15 PM Note Text: PATIENT NAME: Lisa Lugo REFERRING PHYSICIAN: Theron Mendoza MD ([facility]) [address] [place] [address] PRIMARY CARE PHYSICIAN: Theron Mendoza MD CHIEF [...] PANEL - CBC + DIFF (FOR REMOTE [facility] USE) - IRON + TIBC [...] Medical Oncologist [facility] DaytonProtein Electrophor.on 04-02-2019 Albumin [Mass/Vol]3.79 g/dLNormal3.37-4.23[facility] Medical CenterComment on above:Performed By: #### WSR, B12, SERFOL, IRON, FERR, SERIMM, HREMOP, SERMPA, SEPG, MMA ####[facility] [address] [place], [place] [phone] 1 Globulin0.31 gm/dLNormal0.18-0.31[facility] Medical CenterComforest health medical center on above:Performed By: #### WSR, B12, SERFOL, IRON, FERR, SERIMM, HREMOP, SERMPA, SEPG, MMA ####[facility] [address]ney[address] [place], [place] [phone] 2 Globulin0.96 gm/dLNormal0.52-0.97 [facility] CenterComforest health medical center on above:Performed By: #### WSR, B12, SERFOL, IRON, FERR, SERIMM, HREMOP, SERMPA, SEPG, MMA ####[address], [place] [phone] Globulin1.17 gm/dLNormal0.84-1.36[facility] on above:Performed By: #### WSR, B12, SERFOL, IRON, FERR, SERIMM, HREMOP, SERMPA, SEPG, MMA ####[address], [place] [phone] Globulin0.97 gm/dLNormal0.70-1.44[facility] on above:Performed By: #### WSR, B12, SERFOL, IRON, FERR, SERIMM, HREMOP, SERMPA, SEPG, MMA ####[address] [phone] COMMENTNormalCTrinity Health System Twin City Medical Center on above:Result Comment: No definitive M protein is identified on protein electrophoresis.Performed By: #### WSR, B12, SERFOL, IRON, FERR, SERIMM, HREMOP, SERMPA, SEPG, MMA ####[address] [phone] Guy Concentratn0.00 gm/dLNormal 0.00[facility] on above:Performed By: #### WSR, B12, SERFOL, IRON, FERR, SERIMM, HREMOP, SERMPA, SEPG, MMA ####[address] [phone] [Mass/Vol] 7.2 g/dLNormal6.0-8.4CTrinity Health System [facility] Center on above:Performed By: #### WSR, B12, SERFOL, IRON, FERR, SERIMM, HREMOP, SERMPA, SEPG, MMA ####[facility] AveCAllent[place], [place] [phone] [Mass/Vol]N/ANormalCTrinity Health System Twin City Medical Center on above:Performed By: #### WSR, B12, SERFOL, IRON, FERR, SERIMM, HREMOP, SERMPA, SEPG, MMA ####[facility] AveCAllentown, [place] [phone] Staff ReviewReviewed by Chadd Ackerman MD ([id number]) NormalSuburban Community Hospital & [facility] on above:Performed By: #### WSR, B12, SERFOL, IRON, FERR, SERIMM, HREMOP, SERMPA, SEPG, MMA ####[facility] AveCAll[place], [place] [phone] CBCDIF (for [facility] use only)on 18-15-6458Oot Baso<0.54Qauyjl0.00-0.10[facility] Abs Mono0.48 k/uLNormal0.00-0.86[facility] Regional Medical CenterAbs Neut4.30 k/uL Normal1.45-7.50[facility] CenterBasophils/100 WBC (Bld)0.2 %Normal [facility] CenterEosinophils (Bld) [#/Vol]0.04 10*3/uLNormal0.00-0.45 [facility] CenterEosinophils/100 WBC (Bld)0.7 %NormalCommunity Regional Medical CenterErythrocyte distribution width (RBC) [Ratio]13.9 %Idcjbd15.5-15.0 [facility] Medical CenterHematocrit (Bld) [Volume fraction]39.6 %Normal 39.0-51.0[facility] Medical CenterHemoglobin (Bld) [Mass/Vol]12.6 g/dLLow 13.0-17.0[facility] CenterLymphocytes (Bld) [#/Vol]0.84 10*3/uLLow 1.00-4.00[facility] CenterLymphocytes/100 WBC (Bld)14.8 %Normal [facility] HospitalH (RBC) [Entitic mass]27.4 eBScruph24.0-34.0 [facility] HospitalHC (RBC) [Mass/Vol]31.8 g/lUWjjmmp84.5-36.0[facility] HospitalV (RBC) [Entitic vol]86.1 iIXeafym15.0-100.0[facility] CenterMonocytes/100 WBC (Bld)8.5 %NormalCommunity Regional Medical Center Neutrophils/100 WBC (Bld)75.8 %NormalCommunity Regional Medical CenterPlatelet mean volume (Bld) [Entitic vol]9.7 fLNormal9.0-12.7CMercy Health Cl[facility] Hospital Platelets (Bld) [#/Vol]243 10*3/sOTczrqj578-048QeqkmrntfCommunity Regional Medical CenterRBC (Bld) [#/Vol]4.60 10*6/uLNormal4.20-6.00[facility] CenterWBC (Bld) [#/Vol]5.67 10*3/uLNormal3.70-11.00[facility] Medical CenterSed Rate Westergren on 92-61-8467Pez Rate Dxshicuxdt43 mm/hrHigh0-15[facility] Comment on above:Performed By: #### WSR, B12, SERFOL, IRON, FERR, SERIMM, HREMOP, SERMPA, SEPG, MMA #### [facility] [address] [place] [address] Rcdqton B12on 70-69-3544Yivxcdhwo (Vitamin B12) [Mass/Vol]595 pg/mL Ngtrfh946-0462KljugfaksMercy Health Clermont HospitalComment on above:Performed By: #### WSR, B12, SERFOL, IRON, FERR, SERIMM, HREMOP, SERMPA, SEPG, MMA #### [facility] [address] [place], [place] [address] [phone] Lab Reporton 70-52-0508Mokrmihxgllygy Lab Report [facility] Patient Name: Lisa Lugo [facility] MR #: [id number] Physician: Jorje Parsons M.D.Medicine Service Date: 04/25/2017Division of Birthdate: 2Cardiology Room #: 3CD [id number] CardiovascularHCA [facility] [place], [place] [address]Eqogt Fax Cardiovascular Laboratory ReportINDICATION: Mr. Lisa Lugo is a 66-year-old man, known to havecoronary artery disease status post multiple stenting procedures in [facility]. Recently, he presented with transient ST-segment elevation in thesetting of ongoing chest pain. He underwent cardiac catheterization anddrug-eluting stenting of the distal right coronary artery de rachel stenosisas well as drug- eluting stenting of the proximal right coronary arteryin-stent restenosis. At that time, he was found to have exyg-wllrphz-rgfgu restenosis in the mid LAD. He is brought today for stagedpercutaneous intervention to the LAD.PROCEDURES:1. S uccessful rotational atherectomy and balloon angioplasty of 80% [...] angiography was performedfollowed by upsizing to a 6-Swiss x 11 cm sheath. Heparin wasadministered intravenously and therapeutic ACT confirmed during theprocedure. A 6-Swiss XB 3.5 guiding catheter was advanced and used toengage left main coronary ostium. Initial setup angiography was performed.An exchange length Prowater wire was advanced into the distal LAD. AFinecross catheter was used to exchange that wire to a Rota Floppy wire. A1.25 mm rotational atherectomy roland was advanced andplatforming wasperformed outside of the guiding catheter at 160,000 revolutions perminute. The rotational atherectomy bur was advanced into the mid LAD andmultiple passes were performed in the mid LAD in-stent restenosis. Therotational atherectomy roland was then retracted. The Finecross catheter wasthen used to exchange the Rota Floppy wire to the Prowater wire.Angiography was performed. NC Quantum Johnson 2.5 x 15 mm noncompliantballoon was then advanced into the mid LAD and used to perform inflationsat 20 atmospheres throughout the length of the lesion. The balloon wasretracted, angiography wasperformed. Intracoronary nitroglycerin 50 mcgwas administered. The wire was removed. Final angiography was performedshowing reduction of the stenosis to 5%, no evidence of dissection orperforation and VILMA-3 flow in the LAD and diagonal branch. The guidingcatheter was removed. The procedure was conc luded. The patient was loadedwith 300 mg of Plavix as he was maintained previously on aspirin andPlavix. He was transferred to the Cardiovascular Recovery Area. Theaccess sheath will be removed and manual compression will be applied forhemostasis when the ACT is subtherapeutic. He will be admitted f [facility] centeright observation.TOTAL FLUORO TIME: 11.05 minutes. Total air kerma 871 mGy. Totalcontrast volume 80 mL.HEMODYNAMICS: AO 105/60, mean 78.CORONARY ANGIOGRAPHY:The left anterior descending arteryis a large vessel that tapers distally.It has [...] disease.3. Follow up in Cardiology Clinic.Electronically Signed by:Jorje Foster M.D. 05/04/2017 03:22 A Jorje Foster M.D.Date Dict: 04/25/2017/09:47 Nisha/Jorje Foster M.D.Date Trans: 04/26/2017 02:28 A/OctaviaN_JN:[id number]: Theron Mendoza D.O. [address] [place] [phone] County Hospital POC GLUCOSE LABon 21-34-3333Azzflri mass conc99 mg/jJWriewo93-065Sox Berger HospitalComment on above:Performed By: #### [id number] ####[facility] [place] [address], USACBC COMPLETE BLOOD COUNTon 33-23-5507Lsvcmwiogbn distribution width Auto Ratio (RBC)14.3 % Vrvrqo14.5-16.9The Berger HospitalComment on above:Order Comment: Yes: Add to Previous draw if ablePerformed By: #### [id number] ####[facility] [place] [address], [facility] Erythrocytes (RBC)4.16 mill/tv4Zzs7.30-5.90The Berger HospitalComment on above:Order Comment: Yes: Add to Previous draw if ablePerformed By: #### [id number] ####[facility] [place] [address], [facility] CENTERHematocrit (HCT)34.8 %Low39.0-55.0The Berger HospitalComment on above:Order Comment: Yes: Add to Previous draw if ablePerformed By: #### [id number] ####[facility] [place] [address], [facility] CENTERHemoglobin mass conc (Bld)11.8 g/dLLow 13.9-16.3The Berger HospitalComment on above:Order Comment: Yes: Add to Previous draw if ablePerformed By: #### [id number] ####[facility] [place] [address], KRZIOD92.2 pgNormal 24.0-32.0The Berger HospitalComment on above:Order Comment: Yes: Add to Previous draw if ablePerformed By: #### [id number] ####[facility] [place] [address], [facility] CENTERMCHC mass conc (RBC)33.8 g/iZAyumbx81.0-36.0The Berger HospitalComment on above:Order Comment: Yes: Add to Previous draw if ablePerformed By: #### 404[address] ####[facility] [place] [address], [facility] MCV83.6 pKFusrie12.0-100.0The Berger HospitalComment on above:Order Comment: Yes: Add to Previous draw if ablePerformed By: #### [id number] ####[facility] [place] [address].[place] [address], [facility] PLAT AYZ588 Thou/og9Ijjlrw478-362Nzg Berger HospitalComment on above:Order Comment: Yes: Add to Previous draw if ablePerformed By: #### 40110 ####[facility] [place] [address].[place] [address], [facility] CENTERWBC (Leukocytes)3.9 Thou/pp7Rai5.0-10.0The Berger HospitalComment on above:Order Comment: Yes: Add to Previous draw if able Performed By: #### 723[address] ####[facility] [place] [address].[place] [address], [facility]ALTH CENTERPOC GLUCOSE LABon 84-53-2083Huvxgvj mass jmdp894 mg/dL Oavu39-610Zom Berger HospitalComment on above:Performed By: #### [id number] ####[facility] [place] [address].[place] [address], [facility] CENTERGlucose mass vylm770 mg/dERvmy98-399Vaw Berger HospitalComment on above:Performed By: #### [id number] ####[facility] [place] [address], USADischarge Summaryon 04-20-2017 Discharge SummaryMR#: [id number] niTr[facility] Pt. Name: Lisa Lugo Admitted: [...] 60% stenosis in the ostium of the right- sidedPDA, patent previously placed mid and distal circumflex stents and 60%stenosis in the mid circumflex.HOSPITAL COURSE: A 66-year-old male with CAD history, requiring stentingin the past, [facility] to [facility] initially with complaints ofrecurrent chest pain at rest. Initial EKG showed minor ST- segment elevationin the inferior leads, which resolved after administration of IV heparinand nitroglycerin. The [facility] for diagnostic angiography and intervention. Heunderwent left heart catheterization with successful balloon dilatation andstenting of 2 lesions. The patient recovered well postprocedure with nofurther recurrence of chest pain. Right femoral access site healed well.DISCHARGE CONDITION: Stable.DISCHARGE DISPOSITION: Home.DISCHARGE MEDICATIONS: Aspirin 81 mg daily, atenolol 25 mg daily, Lkcqjqwc457 mg daily, Clopidogrel 75 mg daily, Lantus [...] 04/19/2017/06:17 P/Arely Campos, MDDate Trans: 04/20/2017 07:36 A/mmoDN_JN:[id number]: Theron Mendoza D.O. [address] [facility] [address] Tino Gunderson M.D. [address] [id number] County HospitalBASIC METABOLIC PANELon 41-50-5704Oqpomlm7.0 mg/dLNormal8.6-10.3[facility] Comment on above:Order Comment: No: Do not add to previous drawPerformed By: #### [id number], [id number] ####[facility] [place] [address], OEEWxedmzmu025 mmol/LEisjah15-815Yeq [facility] HospitalComment on above:Order Comment: No: Do not add to previous draw Performed By: #### 55801, 21014 ####[facility] [place] [address], GMMUL618 mmol/LWbruvk50-33Ywx [facility] HospitalComment on above:Order Comment: No: Do not add to previous drawPerformed By: #### [id number], 44714 ####[facility] [place] [address], USACreatinine0.94 mg/dLNormal0.70-1.30The [facility] HospitalComment on above:Order Comment: No: Do not add to previous drawPerformed By: #### [id number], [id number] ####[facility] [place] [address], USAeGFR (black) mL/min/{1.73_m2}Normal>60The [facility] HospitalComment on above:Order Comment: No: Do not add to previous drawPerformed By: #### [id number], 80182 ####[facility] [place] [address], USAeGFR (non-black)mL/min/{1.73_m2}Normal>60The [facility] HospitalComment on above:Order Comment: No: Do not add to previous draw Performed By: #### 27344, 64881 ####[facility] [place] [address], [facility] CENTERGlucose mass nkaw823 mg/dYUvdy15-241Whv Berger HospitalComment on above:Order Comment: No: Do not add to previous drawPerformed By: #### 98000, 85712 ####[facility] [place] [place] [address], [facility] CENTERPotassium molar conc3.9 mmol/LNormal3.5-5.1The [facility] HospitalComment on above:Order Comment: No: Do not add to previous drawPerformed By: #### [id number], 65115 ####[facility] [facility] [place] [address], [facility] Hvrjit855 mmol/KVkktry410-886Pxv Berger HospitalComment on above:Order Comment: No: Do not add to previous drawPerformed By: #### 72538, 17760 ####[facility] [facility] [place] [address], USAUrea emfliwbj91 mg/dLNormal7-25[facility] Comment on above:Order Comment: No: Do not add to previous drawPerformed By: #### 21659, 05835 ####[facility] [place] [address], USACBC COMPLETE BLOOD COUNTon 03-73-3570Qquafpftzpo distribution width Auto Ratio (RBC)14.7 %Dlojmz13.5-16.9The [facility] HospitalComment on above:Order Comment: No: Do not add to previous draw Performed By: #### 53771 ####[facility] [place] [address], [facility]ALTH CENTERErythrocytes (RBC)4.37 mill/zp6Qjkneb0.30-5.90The [facility] HospitalComment on above:Order Comment: No: Do not add to previous drawPerformed By: #### 57124 ####[facility] [place] [address], [facility] CENTERHematocrit (HCT)36.5 %Low39.0-55.0 The Berger HospitalComment on above:Order Comment: No: Do not add to previous drawPerformed By: #### 25143 ####[facility] [place] [address], [facility] CENTERHemoglobin mass conc (Bld) 12.3 g/dLLow13.9-16.3The Berger HospitalComment on above: Order Comment: No: Do not add to previous drawPerformed By: #### 93844 ####[facility] [place] [address], [facility] MCH28.0 dpLicemf08.0-32.0The Berger HospitalComment on above:Order Comment: No: Do not add to previous drawPerformed By: #### 68232 ####[facility] [place] [address], [facility] MCHC mass conc (RBC)33.5 g/zPSvfmao07.0-36.0The Berger HospitalComment on above:Order Comment: No: Do not add to previous drawPerformed By: #### [id number] ####[facility] [place] [address], YRETCC49.5 wHRbwrkt63.0-100.0[facility] Comment on above:Order Comment: No: Do not add to previous drawPerformed By: #### [id number] ####[facility] [place] [address], USAPLAT RHZ028 Thou/br6Mlkjba888-177Fty Berger HospitalComment on above:Order Comment: No: Do not add to previous drawPerformed By: #### 34945 ####[facility] [place] [address], [facility] CENTERWBC (Leukocytes)4.7 Thou/gf8Ftbhuv9.0-10.0The Berger HospitalComment on above:Order Comment: No: Do not add to previous draw Performed By: #### 06812 ####[place] [address] [place] [address], USACardiovascular Lab Reporton [id number] Lab ReportUnGeorgetown Behavioral Hospital Patient Name: Lisa Lugo [facility] MR #: [id number] Physician: Jorje Parsons M.D.Medicine Service Date: 04/15/2017Division of Birthdate: 2Cardiology Room #: 3AB 620353Guqvd CardiovascularServicesUn[address] [address]Noypu Fax Cardiovascular Laboratory ReportINDICATION: Lisa Lugo is a 66-year-old man, known to have coronaryartery disease, status post multiple stenting procedures in the past, [facility] pain at rest. Heinitially had minor ST elevations in the inferior leads that resolved afteradministration of intravenous heparin and nitroglycerin. Because ofrecurrent chest pain, he was transferred emergently to our cath lab radiological technologist fordiagnostic angiography and intervention.PROCEDURE:1. Bilateral selective coronary [...] EMS services. He was placed on the cath lab radiological technologist table.Both groinareas were prepped and draped in usual fashion. Usingmicropuncture technique, access in the right co mmon femoral artery wasobtained and the inner cannula was advanced. Limited femoral angiographywas performed followed by upsizing to a 6-Swiss x 11 cm sheath. Bilateralselective coronary angiographywas then performed using 6-Swiss JL4 andJR4 diagnostic catheters.Heparin was administered intravenously and therapeutic ACT confirmed duringthe procedure. A 6-Swiss JR4 guiding catheter was advanced and used toengage the right coronary ostium. A Prowater wire was advanced into thedistal RCA. Balloon dilatation in the distal RCA was performed usingEmerge 2.0 x 12 mm balloon and inflated at 12 atmospheres. Angiographyrevealed suboptimal results. This was treated using a PROMUS Premier 2.5 x16 mm drug-eluting stent, deployed at 11 atmospheres and post dilated usingNC Quantum Johnson 2.5 x 8 mm noncompliant balloon inflated at 20 atmospheresthroughout the length of the stent. Angiography after administration ofintracoronary nitroglycerin showed excellent result with reduction of thestenosis to0%. No evidence of dissection or perforation. The guidingwire was removed. Angiography of the rightcoronary artery was performedin multiple views. This showed evidence of a 70% proximal stenosis. Thewire was advanced into the distal RCA and balloon angioplasty in theproximal RCA in-stent restenosis was performed using NC Quantum Johnson 3.0 x8 mm noncompliant balloon inflated at 14 atmospheres followed by additionaldilatation using NC Quantum Johnson 3.0 x 12 mm noncompliant balloon inflatedat 20 atmospheres. Angiography after balloon dilatation showed evidence ofa filling defect just distal to the site of balloon dilatation. This wasthought to be possibly a thrombus related to the balloon dilatation;therefore, a suction thrombectomy Priority ONE catheter was advanced andused to perform multiple passes of suction thrombectomy. Angiographyrevealed near resolution of the filling defect. It wasdecided to proceedwith stenting. A PROMUS Premier 3.0 x 28 mm drug-eluting stent wasadvanced and deployed across the area of the proximal to mid stenosis at 14atmospheres and post dilated using NC Quantum Johnson 3.25 x 20 mmnoncompliant balloon inflated at 20 atmospheres throughout the length ofthe stent. Final angiography after administration of intracoronarynitroglycerin showed excellent result with reduction of the stenosis to 0%.No evidence of dissection or perforation. The guiding catheter wa sremoved. The procedure was concluded. The right femoral arteriotomy wasmanaged with a 6-Swiss Perclose device with good hemostasis. The patientwas [...] Left main is free of disease.Left anterior descending:This is a large vessel, it has a previouslyplaced stent in the mid segment, that stent has 70% in-stent restenosisjust at the bifurcation of a second diagonal branch, which itself appearedto be free of disease.Circumflex vessel: This is large and nondominant vessel. It has apreviously placed stent in the mid segment, that stent is patent. Thestent location is right after the first obtuse marginalbranch. Beyondthat stent, there is an area of diffuse 60% stenosis and beyond that area,there is a previously placed stent, that stent is widely patent. It jailsa second large obtuse marginal branch.The ostium of that obtuse marginalbranch appears to have 50% to 60% stenosis.Right coronary artery:This arises from the right coronary cusp. It is alarge and dominant vessel. It has a previously plac ed stent in theproximal segment. There is 70% stenosis in the proximal edge of the stentrepresenting in-stent restenosis. This was reduced to 0% by balloonangioplasty and drug-eluting stenting as above. The mid segment of the RCAhas a previously placed stent, that stent is widely patent. Distally,there is a 99% hazy stenosis, which was reduced to 0% by balloonangioplasty and drug- eluting stentingas above. More distally, the RCAbifurcates into PDA and PLV branches. The PLV branch has mild diffusedisease. The PDA branch has 50% stenosis at the ostium, but no obstructivelesions.LIMITED RIGHT FEMORAL ANGIOGRAPHY:This showed access to be in the right common femoral artery with noobstructive lesions noted in the femoral artery or its proximal branches.SUMMARY OF THE FINDINGS:1. Severe 2-vesselcoronary artery disease.2. 70% in-stent restenosis in the [...] life.2. Statin therapy for life (the patient's currentstatin therapy will be intensified from atorvastatin 40 mg daily to 80 mg daily).3. Maximum controlof risk factors.4. Plavix therapy for minimum of 1 year after drug-eluting stenting, preferably long-term given his aggressive disease.5. The patient will come back for a staged intervention of the mid LAD in-stent restenosis at a later date.Electronically Signed by:Jorje Foster M.D. 04/21/2017 01:07 P Jorje Foster M.D.Date Dict: 04/15/2017/06:14 P/Jorje Foster M.D.Date Trans: 04/16/2017 07:04 A/samariaoDN_JN:[id number]: Theron Mendoza D.O. [address] [place] [address] A [facility] [address] Tino Gunderson M.D. [address] [facility] [address]UhcrwfOgzUniversity Hospitals TriPoint Medical CenterMAGNESIUM BLOODon 50-98-6503Bzgiqmxrm5.9 mg/dLNormal1.9-2.7[facility] Comment on above:Order Comment: No: Do not add to previous drawPerformed By: #### 94001, 54056 ####[facility] [place] [address], [facility] CENTERPOC GLUCOSE LABon 44-82-6544Jyojraw mass bcef865 mg/dL Kpmn30-285Eue [facility] HospitalComment on above:Performed By: #### 82780 ####[facility] [place] [address], USAGlucose mass awzb312 mg/oRDobg97-177Xvt [facility] HospitalComment on above:Performed By: #### 52472 ####[facility] [place] [address], [facility] CENTERPOC GLUCOSE LABon 04-15-2017 Glucose mass auhz374 mg/cJGtyk05-511Ezq [facility] Comment on above:Performed By: #### 94021 ####[facility] [place] [address], [facility] Vital Signs Date TimeVital SignValuePerforming KvktcghqhDchhfrlu72-31-7920 10:20-0400Body yrrpks025.8 cmBenjamin Matt DO Work Phone: [facility]07-10-2025 10:20-0400 Body mass index (BMI) [Ratio]25.3 kg/f3Asxiufcf Ball DO Work Phone: [facility]07-10-2025 10:20-0400 Body .05 kgBenjamin Ball DO Work Phone: [facility]07-10-2025 10:20-0400 Diastolic blood kkbqwleo05 mm[Hg]Theron Ball DO Work Phone: [facility]07-10-2025 10:20-0400 Heart rate66 /minBenjamin Ball DO Work Phone: [facility]07-10-2025 10:20-0400 Respiratory rate12 /minBenjamin Ball DO Work Phone: [facility]07-10-2025 10:20-0400 Systolic blood rvvpyzdl192 mm[Hg]Theron Ball DO Work Phone: [facility]08-21-2024 13:53-0400 Blood Pressure LocationMichael NILL [phone]-HmmxdOhio [facility]08-21-2024 13:53-0400Diastolic blood mm[Hg]Chadd NILL [phone]-BncbeOhio Valley Hospital08-21-2024 13:53-0400Heart rate70 /minMichael NILL [phone]-MlotnOhio [facility] Hospital08-21-2024 13:53-0400Respiratory rate16 /minMichael NILL [phone]-ZybcbOhio Valley Hospital08-21-2024 13:53-0400Systolic blood hlwlduqi126 mm[Hg]Chadd NILL 101-4862Uvoqsh-XsdfxOhio Valley Hospital07-09-2024 13:43-0400Body bwdmib153.[address] [facility]07-09-2024 13:43-0400Body mass index (BMI) [Ratio]25.7 kg/r0EncbbmjmmMercy Health St. [facility]07-09-2024 13:43-0400Body .[address] [facility] 11-05-2023 13:43-0400Diastolic blood dkrkuvqi85 mm[Hg][facility]07-09-2024 13:43-0400Heart rate71 /minMer[facility] 11-05-2023 13:43-0400Respiratory rate12 /[facility] 11-05-2023 13:43-0400Systolic blood fvsikkrg999 mm[Hg][facility]06-04-2024 12:35-0400Blood Pressure LocationJENNIFER SAKINA [facility]06-04-2024 12:35-0400Diastolic blood pqbopbsi90 mm[Hg]DOMINGA SAKINA [facility]06-04-2024 12:35-0400Heart rate72 /minJENNIFER SAKINA [facility]06-04-2024 12:35-0400Respiratory rate16 /minJENNIFER SAKINA [facility]06-04-2024 12:35-0400Systolic blood lofukroj858 mm[Hg]DOMINGA SAKINA [facility]12-05-2023 09:30-0500Body jsqqik450.8 cmBenjaWeMontage Ball Other [employer] Other 12-05-2023 09:30-0500Body mass index (BMI) [Ratio] 25.97 kg/r4Bsezrcay Ball Other [facility] [employer] Other 12-05-2023 09:30-0500Body zvplej71.1 kgBenjamin Ball Other [employer] Other 12-05-2023 09:30-0500Diastolic blood ifpdoemu77 mm[Hg] Theron Ball Other [employer] Other 12-05-2023 09:30-0500Respiratory rate12 /minBenjamin Ball Other [employer] Other 12-05-2023 09:30-0500Systolic blood quhxomrl168 mm[Hg] Theron Ball Other [employer] Other 07-06-2023 10:00-0400Body fdilcr985.8 cmBenjamin Ball Other [employer] Other 07-06-2023 10:00-0400Body mass index (BMI) [Ratio] 25.77 kg/h5Yggfmhoq Ball Other [employer] Other 07-06-2023 10:00-0400Body lhmmij49.47 kgBenjamin Ball Other [employer] Other 07-06-2023 10:00-0400Diastolic blood egfbmhlk46 mm[Hg] Theron Ball Other [employer] Other 07-06-2023 10:00-0400Respiratory rate12 /minBenjamin Ball Other [employer] Other 07-06-2023 10:00-0400Systolic blood wnnfmeal435 mm[Hg] Theron Ball Other [employer] Other 06-07-2023 13:45-0400Body lasrlt336.8 cmBenjamin Ball Other [employer] Other 06-07-2023 13:45-0400Body mass index (BMI) [Ratio] 26.23 kg/s0Vbekqonz Ball Other [employer] Other 06-07-2023 13:45-0400Body pigxzc30.92 kgBenjamin Ball Other [facility] [employer] Other 06-07-2023 13:45-0400Diastolic blood wrfgiakf06 mm[Hg] Theron Ball Other [facility] [employer] Other 06-07-2023 13:45-0400Respiratory rate12 /minBenjamin Ball Other [facility] [employer] Other 06-07-2023 13:45-0400Systolic blood gspjgefo893 mm[Hg] Theron Ball Other [facility] [employer] Other 07-25-2022 12:31-0400Blood Pressure LocationPatrick PacerPro [facility] 07-25-2022 12:31-0400Diastolic blood mzrizqdp44 mm[Hg] Tom ARGUETA [facility] 07-25-2022 12:31-0400Heart rate74 /minPatrick PacerPro [facility] 07-25-2022 12:31-0400Respiratory rate16 /minPatrick PacerPro [facility] 07-25-2022 12:31-0400Systolic blood bwrfyfea264 mm[Hg] Tom ARGUETA [facility] Encounters Encounter DateEncounter TypeCare ProviderFacilityStart: 52-99-1291uvbgvyhmkr Tom ARGUETAFacility:EU BellevueStart: 12-96-0281gdzjtnoxseVpeqpzz R WATERS Facility:EU [place]vueStart: 12-07-2024 End: 89-52-9645gynlrtbnguKfezotv Valerio Weir MDFacility:PM [facility] Start: 11-05-2024 End: 44-00-7114qzimlvkjhiZrbudghl Ball DO Work Phone: [facility] Work Phone: Start: 11-05-2024 End: 58-42-7587Hldfkai encounter procedureBenjaunlu Mendoza DO-[facility] Work Phone: Start: 72-29-9400Utg-patient / Non-visitBeadalu Mendoza DO-[facility] Work Phone: Start: 10-02-2024 End: 93-64-5358azyqyyhkeyEnyiajd R WATERSFacility:EU ueStart: 10-02-2024 End: 25-61-2973Vbsawgo encounter procedureTom ARGUETA [facility] start: 28-88-0982Qmi-patient / Non-visitDominga Presley PA-C-[facility] Work Phone: Start: 04-27-2024 End: 12-69-7413vydiaelvfmBijqikm Vytautas Giedrakrzysztof MDFacility:[facility] [place] Start: 04-13-2024 End: 44-44-0179tygcrbfczqYqnpvqu Vytautas Giedraitis MDFacility:[facility] Start: 03-23-2024 End: 29-41-1535ycqbncwsdfUxehttq Vytautas Giedraitis MDFacility:[facility] Start: 06-39-6781ojphzjndkvKsiikfk R NILLFacility: BellevueStart: 01-06-2024 End: 44-16-4469lbgjytckfiFkauyss Vytautas Giedraitis MDFacility:[facility] [place] Start: 01-01-2024 End: 14-55-7994hmdvumuedcTgehjni R NILLFacility:CD:[id number]: 12-18-2023 End: 94-30-5641rluwysgqdsGwqvhgp R NILLFacility: tart: 12-18-2023 End: 46-00-7919Pxlmflo encounter procedureMichael R NILL [phone]-Lkxgs General Surgery Ann Start: 11-05-2023 End: 45-93-0899wvgzlbjkauPtrraanctDunlap Memorial Hospital Work Phone: Start: 11-05-2023 End: 26-47-3949Quyoucd encounter procedureVidant P[facility] Physician GroupBar[facility] Work Phone: Start: 95-76-9381Snf-patient / Non-visitVidant Pungo Hospital Physician GroupSwed[facility] Work Phone: Start: 10-01-2023 End: 73-39-2989Zgswkqb encounter procedureJENNIFER E SAKINA [facility] start: 79-26-3765Yah-patient / Non-visitVidant Pungo Hospital Physician GroupSwed[facility] Work Phone: Start: 04-03-2023 End: 36-62-7605xejcqmyszrJhzxilnh Ball Other [employer] Other Start: 55-84-0830Tnhkmjozp encounterBenjamin BallFPG [facility] Medical ClinicStart: 04-02-2023 End: 24-94-7957hrwnplgnxdMfxewkon Ball Other [employer] Other Start: 18-05-7293Ivchqg outpatient visit 25 minutes Theron BallFPG Ball Medical ClinicStart: 04-01-2023 End: 12-99-4519ftccwvbepcOkwklzpe Ball Other [employer] Other Start: 00-72-6805Gniipbbii encounterBenjamin BallFPG Ball Medical ClinicStart: 01-07-2023 End: 48-33-1592vqiczxberaVgijltgt Ball Other [employer] Other Start: 45-46-9594Sbvwmmuui encounterBenjamin BallFPG [facility] Medical ClinicStart: 11-01-2022 End: 24-06-6125upvlmirefwIngnmgve Ball Other [employer] Other Start: 35-42-7891Eyuwyrl encounter procedureBenjamin BallFPG [facility] Medical ClinicStart: 10-03-2022 End: 94-07-2994hgexponvqmJmapmdfv Ball Other [employer] Other Start: 65-07-6287Zkrjkg outpatient visit 15 minutes Theron BallFPG [facility] Medical ClinicStart: 84-44-0689Firdttjxv encounterBenjamin BallFPG [facility] Medical ClinicStart: 93-62-4921aztthtudcmKN THERON BALL Facility:I3Puave: 03-29-2022 End: 32-80-5740jfsxmbrjlbLG THERON BALLFacility:K6Zagon: 11-25-2021 End: 05-98-8048naxehvgugnCM THERON BALLFacility:Y3Lxavp: 11-24-2021 End: 30-66-8874peimcgqtcwEW THERON BALLFacility:P4Fdwik: 79-56-5142Qzvpv health examinationTheron Mendoza Other [employer] Other Start: 11-20-2021 End: 28-12-8838Uvsgzhz encounter procedurePaklaus ARGUETA [facility] start: 09-14-2021 End: 80-45-6747otjosxsxgyJY THERON BALLFacility:N7Fvbwm: 09-10-2017 End: 15-34-6299FgywsbylcyJTQNIJS PHYSICIANFacility:UTMCStart: 04-25-2017 End: 17-00-8145OnaxapkepoZCDWNDCF UNKNOWNFacility:UTMCStart: 04-15-2017 End: 04-72-7645Fevcrgnjlz and management of inpatientTHERON MENDOZAFacility:[facility] Procedures DateProcedureProcedure DetailPerforming ClinicianStart: 90-77-6300Gkibtcfxwma Tomgiuliana ARGUETA Start: 92-08-0918RppqgcazypPbjrgnb LIZABETH Start: 84-28-2994ZUDXQCRW OF 2 COR ART WITH 2 DRUG- ELUT, PERC APPROACHGEORGE V MOUKARBELStart: 02-06-4861Yhlpfpg examination of patientTheron Mendoza Other Start: 03-53-9380Hffmaoqke for malignant neoplasm of colonTheron Mendoza Other Start: 44-68-0300Fblhyjbmz for malignant neoplasm of prostateTheron Mendoza Other Start: 71-01-2753Jlr-surgery evaluationBekenny Mendoza Other Start: 72-08-7285Cduybuqxdlnd cardiovascular examinationBekenny Mendoza Other Start: 52-22-7590GdfsrhxugrnEdngoct NILL Start: 14-10-4038Nvcgrokwtdm normal (finding)Tom ARGUETA Start: 38-51-1596Qutbwiqdfvlxn prostatectomyTom ARGUETA Start: 16-86-0544TxrwcpelrsJiutjwm ARGUETA Start: 34-03-6913XfgqskbkwgLwqiuqb ARGUETA Start: 36-15-8997OqpwjzpsjcNqanrrx WATERS Start: 37-70-8929Mzkin ablation of prostateRigoSmeetzak PacerPro Start: 56-11-9141QuxzbtezygWiqmqtu ARGUETA Start: 44-94-6135Uauphdpyql studiesWaSmeetzak PacerPro Start: 29-23-8993Eotpuaptiru biopsy of prostate using ultrasound guidanceWaClever Goats Media arthroscopy of kneePaClever Goats Media Cardiac catheterizationMichael NILL Depression screeningBenjamin Ball Other Operation on heartRevivn Placement of stent in cardiac conduitPaClever Goats Media Placement of stent in coronary arteryMichael NILL Plan of Treatment DateCare ActivityDetailAuthorXR Lumbar spine [facility]XR Pelvis 1 or 2 [facility] Immunizations Immunization DateImmunizationNotesCare WeicqewoQvdbmfit70-63-3270hyutkunse, high dose seasonal, preservative-freeBenjamin Ball DO Work Phone: [facility]12-06-2022influenza virus vaccine, split virus (incl. purified surface antigen)Theron Mendoza Other [employer] Other 104893-74-8607kwaclsolg virus vaccine, unspecified formulationMercy Health St. [facility]12-06-2022Prevnar 20Bedandrefede Mendoza Other [facility]11-30-2021influenza virus vaccine, split virus (incl. purified surface antigen)Theron Mendoza Other [employer] Other [id number] virus vaccine, unspecified formulationJESOFIJOHN PRESLEY [facility]12-06-2018diphtheria, tetanus toxoids and acellular pertussis vaccine, unspecified formulationTevinlu Mendoza Other [facility] Hospitalpneumococcal Conjugate, unspecified formulation; Translations: [Need for prophylactic vaccination against Streptococcus pneumoniae (pneumococcus)]Theron Mendoza Other [employer] Other Payers DatePayer CategoryPayerPolicy ID2022Medicare [id number] Health Insurance [id number] 2017Unknown1960Medicare [id number] Health [id number]-zix [id number] [id number] [id number] [id number] 2.16.840.1.710739.3.57[id number] 2.16.840.1.313494.3.57[id number] 2.16.840.1.738841.3.57[id number] 2.16.840.1.040396.3.57[id number] 2..840.1.211581.3.57[id number] 2..840.1.701841.3.57[id number] 2..840.1.825609.3.57[id number] 2.16.840.1.424442.3.57[id number] 2..840.1.972056.3.57[id number] 2..840.1.054524.3.57[id number] 2.840.1.430066.3.57[id number] 2.16.840.1.57[id number] Social History DateTypeDetailFacilityStart: 04-10-2021 End: 11-10-5356Gqaygds smoking statusEx-smoker (finding)[facility] sex Assigned At [facility] the [facility] Tobacco smoking statusNeverExecutive [facility]rology of [facility] Hospitaltart: 11-05-2023 End: 64-02-8404Mfvfaxz smoking status NHISNever smoked tobacco (finding) [facility]: 24-34-6134Tkq Assigned At [facility] Centerexual OrientationExec[facility] start: 31-47-0603IyjGfib (finding)[facility] Medical Equipment Procedure CodeEquipment CodeEquipment Original TextEquipment IdentifierDatesBD Pen Needle Short U/F 31G X 8 MMStart: 28-66-0384Ovfnx Sugar Diagnostic (Onetouch Ultra Test) stripStart: 39-96-0203Qdgbyxs (Onetouch Delica Plus Lancet) 30 gauge miscStart: 83-13-7963Gwr Needle, Diabetic (Bd Carmen 2nd Gen Pen Needle) 32 gauge x 5/32 needleStart: 08-52-6809Ggokona (Onetouch Delica Plus Lancet) 30 gauge miscStart: 12-13-2023 End: 10-44-5711Ibr Needle, Diabetic (Bd Carmen 2nd Gen Pen Needle) 32 gauge x 5/32 needleStart: 03-03-2024 End: 03-03-2024 Functional Status OsnhPuvxluweegMyvvjnAadoejnk68-05-6390Cqgbghjgem StatusN/AFB[facility] Qpptattw64-77-4219Yrflvhttag StatusN/AExec[facility]07-25-2022Functional StatusN/A[facility] Clinical Notes 11-20-2021 to 10-02-2024 Note Date & WhpkOmveEinwrlss57-48-1912 Hospital Discharge instructions Patient Education 10/02/2024 11:15:12 Benign Prostatic Hyperplasia Benign Prostatic Hyperplasia Benign prostatic hyperplasia (BPH) is an enlarged prostate gland that is caused by the normal agingprocess. The prostate may get bigger as a man gets older. The condition is not caused by cancer. The prostate is a walnut-sized gland that is involved in the production of semen. It is located in front of the rectum and below the bladder. The bladder stores urine. The urethra carries stored urine ou t of the body. An enlarged prostate can press on the urethra. This can make it harder to pass urine. The buildup of urine in the bladder can cause infection. Back pressure and infection may progress to bladder damage and kidney (renal) failure. What are the causes? This condition is part of the normal aging process. However, not all men develop problems from thiscondition. If the prostate enlarges away from the [...] urethra. Follow these instructions at home: Take zngl-rzk-szaxoma and prescription medicines only as told by [...] provider. Document Revised: 11/01/2021 Document Reviewed: 11/01/2021 [employer] Patient Education 2023 [employer]. Follow Up Care 10/01/2023 13:04:47 With:LIZABETH NUÑEZ, Tom Cohen, URL Address: [address] [place] [phone] When: Unknown [facility] 06-06-2025 NotePatient Education Urology Benign Prostatic Hyperplasia Benign prostatic hyperplasia (BPH) is an enlarged prostate gland that is caused by the normal agingprocess. The prostate may get bigger as a man gets older. The condition is not caused by cancer. The prostate is a walnut-sized gland that is involved in the production of semen. It is located in front of the rectum and below the bladder. The bladder stores urine. The urethra carries stored urine ou t of the body. An enlarged prostate can press on the urethra. This can make it harder to pass urine. The buildup of urine in the bladder can cause infection. Back pressure and infection may progress to bladder damage and kidney (renal) failure. What are the causes? This condition is part of the normal aging process. However, not all men develop problems from thiscondition. If the prostate enlarges away from the [...] this procedure, a tool is inserted through theopening at the tip of the penis (urethra). [...] procedure uses radio frequencies to destroy and removea small amount of prostate tissue. ? Interstitial laser coagulation (ILC). This procedure uses a laser to destroy and remove a small amount of prostate tissue. ? Transurethral electrovaporization (TUVP). This procedure uses electrodes to destroy and remove a small amount of prostate tissue. ? Prostatic urethral lift. This procedure inserts an implant to push the lobes of the prostate awayfrom the urethra. Follow these instructions at home: ??? Take kciu-vbf-ejtbgdm and prescription medicines only as told by [...] symptoms do not get (more content not included)...[facility]08-21-2024 NoteGeneral Surgery Office/Clinic Note Chief Complaint consultation for positive Cologuard [facility] Staff 73 year old male presents on consultation from Dr. Mendoza for positive Cologuard. Denies abdominal orrectal pain. No rectal bleeding or change in [...] swallowing difficulties, no hearing loss, no ear infection(s),no nose bleeds. Cardiovascular: normal blood pressure, no [...] Cystoscopy (08/31/2008), Urodynamics (08/25/2008), Transrectal biopsy of pro state using ultrasound (US) guidance (08/03/2008), Arthroscopy of [...] Oral, Daily pioglitazone 1 (more content not included)...[facility] NorthComment on above:Result Comment: Electronically Signed By: Chadd BARBOUR MD\Date and Time Signed: 12/18/23 16:28 [id number] Hospital Discharge instructions Patient Education 10/01/2023 11:40:57 Benign Prostatic Hyperplasia Benign Prostatic Hyperplasia Benign prostatic hyperplasia (BPH) is an enlarged prostate gland that is caused by the normal agingprocess. The prostate may get bigger as a man gets older. The condition is not caused by cancer. The prostate is a walnut-sized gland that is involved in the production of semen. It is located in front of the rectum and below the bladder. The bladder stores urine. The urethra carries stored urine ou t of the body. An enlarged prostate can press on the urethra. This can make it harder to pass urine. The buildup of urine in the bladder can cause infection. Back pressure and infection may progress to bladder damage and kidney (renal) failure. What are the causes? This condition is part of the normal aging process. However, not all men develop problems from thiscondition. If the prostate enlarges away from the [...] urethra. Follow these instructions at home: Take reiw-qbf-vkionfu and prescription medicines only as told by [...] provider. Document Revised: 11/01/2021 Document Reviewed: 11/01/2021 [employer] Patient Education 2022 [employer]. Follow Up Care 09/17/2022 11:39:15 With:DOMINGA PRESLEY PA-C, URL Address: [address] [place] [address] When: Unknown [facility] 12-05-2023 Evaluation note* Encounter Date Diagnosis Assessment Notes Treatment Notes Treatment Clinical Notes Mar, ASHD (arteriosclerotic heart dis ease) (ICD-10 - I25.10) This patient is stable without activity related CP, dyspnea or lightheadedness. They are instructedto continue exercise and AHA diet plan. Continue secondary prevention measures. Mar,Type 2 diabetes mellitus with hyperglycemia (ICD-10 - E11.65)This patient is following a comprehensive diabetic treatment [...] Microalbumin, Dilated eye exam and Foot exam Mar,rimary hypertension (ICD-10 - I10)This patient is instructed to consume a healthy, low-fat, low-salt diet. They are also encouraged to continue exercise to achieve/maintain a normal BMI. Mar,Mixed hyperlipidemia (ICD-10 - E78.2)Instructed on diet and exercise with continued statin therapy.Discussed the beneficial effects of lowering cholesterol in reducing the risk for cerebrovascular and cardiovascular disease. Mar,Long term (current) use of insulin (ICD-10 - Z79.4) Mar,nemia, unspecified type (ICD-10 - D64.9)No s/s GIB. He remains on antiplatelet therapy. He denies change in appetite or bowel habits He denies heartburn, dysphagia, melena or hematochezia Mar,Other chronic pain (ICD-10 - G89.29) Mar,ain in right knee (ICD-10 - M25.561)Persisted since September. - examination unremarkable - no swelling, erythema or warmth: unlikely inflammatory - likely arthritic but not a TKA candidate per Orthopedics Quad exercises, ice/heat and Tylenol. Avoid squatting and kneeling. Mar,Shortness of breath (ICD-10 - R06.02)Feels shaky and dyspneic this morning. Week long cold like symptoms. Denies CP, palpitations, diaphoresis or lightheadedness He worked in yard yesterday w/o problems. Psat 98% VSS afebrile Monitor for now Home and rest, push fluids ER for increased dyspnea, CP or lightheadedness _update office tomorrow [employer] Other 12-04-2023 Evaluation note* Encounter Date Diagnosis Assessment Notes Treatment Notes Treatment Clinical Notes Mar, Primary hypertension (ICD-10 - I 10) Mar,Type 2 diabetes mellitus with hyperglycemia (ICD-10 - E11.65) Mar,Mixed hyperlipidemia (ICD-10 - E78.2) Mar,SHD (arteriosclerotic heart disease) (ICD-10 - I25.10) Mar,High risk medication use (ICD-10 - Z79.899) [employer] Other 09-11-2023 Evaluation note* Encounter Date Diagnosis Assessment Notes Treatment Notes Treatment Clinical Notes Dec, Type 2 diabetes mellitus with hy perglycemia (ICD-10 - E11.65) [employer] Other 07-06-2023 Evaluation note* Encounter Date Diagnosis [...] reviewed and amended by provider signed below. Oct,SHD (arteriosclerotic heart disease) (ICD-10 - I25.10)This patient is stable without activity related CP, dyspnea or lightheadedness. They are instructedto continue exercise and AHA diet plan. Oct,Type 2 diabetes mellitus with hyperglycemia (ICD-10 - E11.65)This patient is following a comprehensive diabetic treatment [...] Microalbumin, Dilated eye exam and Foot exam Oct,Mixed hyperlipidemia (ICD-10 - E78.2)Instructed on diet and exercise with continued statin therapy.Discussed the beneficial effects of lowering cholesterol in reducing the risk for cerebrovascular and cardiovascular disease. Oct,Long term (current) use of insulin (ICD-10 - Z79.4) Oct,rimary hypertension (ICD-10 - I10)This patient is instructed to consume a healthy, low-fat, low-salt diet. They are also encouraged to continue exercise to achieve/maintain a normal BMI. Oct,Screening PSA (prostate specific antigen) (ICD-10 - Z12.5)Completed w/ , normal [employer] Other 06-07-2023 Evaluation note* Encounter Date Diagnosis Assessment Notes Treatment Notes Treatment Clinical Notes Sep, Internal derangement of right kn ee (ICD-10 - M23.91) Gentle ROM exercises, ice/heat and Tylenol as needed. Avoid NSAIDs due to CAD and CKD. Voltaren Gel saft to use qid. MRI and referral to Orthopedics for acute swelling and pain of right knee. Sep,rimary hypertension (ICD-10 - I10)This patient is instructed to consume a healthy, low-fat, low-salt diet. They are also encouraged to continue exercise to achieve/maintain a normal BMI. Avoid NSAIDs [employer] Other 07-25-2022 Hospital Discharge instructions Patient Education [...] Follow these instructions at home: Medicines Take ukjo-mqm-qgcnavg and prescription medicines only as told by [...] or the blood stops without treatment. Take moqv-jrw-edwagjo and prescription medicines only as told by your health care provider. Drink enough fluid to keep your urine clear or pale yellow. This information is not intended to replace advice given to you by your health care provider. Make sure you discuss any questions you have with your health care provider. Document Released: 04/15/2006 Document Revised: 09/09/2019 Document Reviewed: 05/18/2017 [employer] Patient Education 2020 [employer] Follow Up Care 09/21/2021 10:23:43 With:Tom ARGUETA MD, URL Address: [facility] [address], [place] [phone] When: Unknown [facility] evaluation + Plan note Future Appointments Appointment Date:11/28/2021 08:45:00 AM Scheduled Provider: Location:[facility] Appointment Type:Urology CALL PAT FT Appointment Date:12/12/2021 10:30:00 AM Scheduled Provider: Location:[facility] Appointment Type:Urology FT Appointment Date:04/13/2022 10:45:00 AM Scheduled Provider:Tom ARGUETA MD Location:[facility] Appointment Type:URO Office Visit [facility] evaluation + Plan note Future Appointments Appointment Date:10/02/2024 10:15:00 AM Scheduled Provider:Tom ARGUETA MD Location[facility] Appointment Type:URO Office Visit Diagnostic Tests Pending * PSA Total 10/01/23 [facility] evaluation + Plan note Future Appointments Appointment Date:10/02/2024 10:15:00 AM Scheduled Provider:Tom ARGUETA MD Location:[facility] Appointment Type:URO Office Visit [facility] Evaluation + Plan note Future Appointments Appointment Date:09/24/2025 10:00:00 AM Scheduled Provider: Location:[facility] Appointment Type:URO Nurse Visit Appointment Date:10/01/2025 09:45:00 AM Scheduled Provider:Tom ARGUETA MD Location:[facility] Appointment Type:URO Office Visit Future Scheduled Tests Laboratory* PSA Total 08/27/25 [facility] evaluation noteNo [employer] Other Evaluation note* Diagnosis Onset Date Resolution Status Anemia acuteASHD (arteriosclerotic heart disease)acuteGERD (gastroesophageal reflux disease)acuteHypercholesterolemiaacuteHypertensionacuteType 2 diabetes mellitus with hyperglycemiaacuteMedicare annual wellness visit, subsequentnoneactive Screening for colon cancernoneactive [facility] Work Phone: Evaluation note* Diagnosis Onset Date Resolution Status Admit Date Anemia acuteJuly 2024 9:55amASHD (arteriosclerotic heart disease)acuteJuly 2024 9:55amCentral stenosis of spinal canalacuteJuly 2024 9:55amGERD (gastroesophageal reflux disease)acuteJuly 2024 9:55amHypercholesterolemia acuteJuly 2024 9:55amHypertensionacuteJuly 2024 9:55amScreening PSA (prostate specific antigen)acuteJuly 2024 9:55amType 2 diabetes mellitus with hyperglycemiaacuteJuly 2024 9:55amMedicare annual wellness visit, subsequentnoneactiveJuly 2024 9:55am [facility] Work Phone: History general Narrative - Reported* Type Description Date Medical History ASHD Medical HistoryHTNMedical HistoryHyperlipidemiaMedical KjvmrhlG4NMUljynve HistoryGERDSurgical HistoryANGIOPLASTYSurgical HistoryLHC PCI/stent RCA and LAD 2007Surgical HistoryLHC PCI/stent [id number] HistoryLHC PCI/stent OM and [id number] HistoryLHC PCI/stent RCA x 06199Byzqzxeg HistoryLHC PCI/stent [id number] HistoryTURP, TRUS/ld6671Izayscwp HistoryArthroscopy right knee 2004, 2013Surgical HistoryArthroscopy left [id number] Historysee surgical history [facility] [employer] Other Hospital course Narrative No data available for this section [facility] Hospital Discharge instructions No data available for this section [facility] General Surgery [place] [facility] note No data available for this section [facility] reason for referral (narrative)* Reason Referral for interna l derangement right knee Diagnosis 1 Internal derangement of right knee (M23.91) Referral Organization [facility] Referring Provider First Name Theron Referring Provider Last Name Matt Referring Provider Specialty Internal Me dicine Referred Organization Unknown Facility Referred Provider Jorje Mccabe Jr Referred Provider Specialty Orthopedic S urgery Referral Priority Routine General Notes Patient being referr ed for persistent swelling and pain of the right knee. He has undergone arthroscopy x 2 in the past. He has pain w/ any weight bearing activity. He is unable to fully extend or flex his knee. Medial joint line tenderness. Clinical NotesMRI right knee to be included [facility] [employer] Other Reason for referral (narrative)No reason for referral information availableVeterans Health Administration Work Phone: Summary Purpose Family History No Family History Records Found Relationship Condition Age at Onset Recorded Date/T [place] father Unknown motherDeceasedUnknown Advance Directives No Advanced Directives Records Found [...] section and content) DATE CREATED AUTHOR 10/16/2017 [facility] DATE CREATED AUTHOR AUTHOR'S ORGANIZ ATION 04/04/2019 [facility] DATE CREATED AUTHOR AUTHOR'S ORGANIZ ATION 04/30/2022 [facility] DATE CREATED AUTHOR AUTHOR'S ORGANIZ ATION 10/04/2024 [facility] DATE CREATED AUTHOR AUTHOR'S ORGANIZ ATION 12/16/2024 [facility] Care Team (unrecognized sect ion and content) Team Status: Active Member Role Status Dates Theron Mendoza DO Primary Care Provider Active Team Status: Active Member Role Status Dates Theron Mendoza DO Primary Care Provider Active Start: September 17, 2023 Adri Nunes ProviderActiveStart: September 17, 2023 Team Status: Active Member [...] Care Provider Active Start: September 25, 2024 RIGO Hines-Erin ProviderActiveStart: September 25, 2024 Team Status: Active Member Role Status Dates Theron Mendoza DO Primary Care Provider Active Start: November 03, 2024 Kiley Pelayo ProviderActiveStart: November 03, 2024 Team Status: Inactive Member Role Status Dates Theron Mendoza DO Primary Care Provider Active Start: November 05, 2024 End: November 05Kiley Dejesus ProviderActiveStart: November 05, 2024 End: November 05, 2024 [...] BE BASED ON THE PRIMARY CLINICAL RECORDS. [facility] [employer] [facility]. provides no warranty or guarantee of the accuracy or completeness of information in this document.
--- NOTE | 2025-03-11 14:16 | PM.CN ---
Consult Note: HPI Data of Consult Patient: known to practice within the last 3 years Consult date: 03/11/25 Requesting Physician: Lisa Barcenas NP Primary Care Provider: Theron Lora, Consult Narrative Reason for consult: low back and BLE pain Narrative: 74yom who presents for assessment. imaging reviewed, which is significant for moderate to severe spondylosis and stenosis at l4-5 and l5-s1. continues in provider directed home exercises, without lasting benefit. uses tylenol as needed as well as baclofen 10mg BID PRN. denies adverse med side effects. Pain well controlled since last visit. cc:: CC: Lisa Barcenas NP Review of Systems ROS Musculoskeletal Reports: back pain and extremity pain [facility] Medical History (Updated 03/18/24 @ 09:27 by Lisa Barcenas NP) Lymphocytopenia ?D72.810 - Lymphocytopenia (ICD-10) Lumbar spondylolysis ?M43.06 - Spondylolysis, lumbar region (ICD-10) History of nephrolithiasis ?Z87.442 - Personal history of urinary calculi (ICD-10) Epidermal cyst of neck ?L72.0 - Epidermal cyst (ICD-10) Chronic prostatitis ?N41.1 - Chronic prostatitis (ICD-10) BPH with urinary obstruction ?N40.1 - Benign prostatic hyperplasia with lower urinary tract symptoms (ICD-10) ?N13.8 - Other obstructive and reflux uropathy (ICD-10) Anemia ?D64.9 - Anemia, unspecified (ICD-10) Coronary artery disease ?I25.10 - Atherosclerotic heart disease of [place] coronary artery without angina pectoris (ICD-10) Osteoarthritis ?M19.90 - Unspecified osteoarthritis, unspecified site (ICD-10) Acid reflux ?K21.9 - Gastro-esophageal reflux disease without esophagitis (ICD-10) Diabetes ?E11.9 - Type 2 diabetes mellitus without complications (ICD-10) High cholesterol ?E78.00 - Pure hypercholesterolemia, unspecified (ICD-10) HTN (hypertension) ?I10 - Essential (primary) hypertension (ICD-10) Myocardial infarct ?I21.9 - Acute myocardial infarction, unspecified (ICD-10) Surgical History History of arthroscopy of knee ?Z98.890 - Other specified postprocedural states (ICD-10) History of cardiac catheterization ?Z98.890 - Other specified postprocedural states (ICD-10) History of prostate biopsy ?Z98.890 - Other specified postprocedural states (ICD-10) History of transurethral resection of prostate ?Z98.890 - Other specified postprocedural states (ICD-10) ?Z90.79 - Acquired absence of other genital organ(s) (ICD-10) History of colonoscopy ?Z98.890 - Other specified postprocedural states (ICD-10) History of cystoscopy ?Z98.890 - Other specified postprocedural states (ICD-10) History of heart artery stent ?Z95.5 - Presence of coronary angioplasty implant and graft (ICD-10) Family History Other Family history of hypertension Heart disease Social History Within the past year, how often did you have a drink containing alcohol: monthly or less Smoking status: Former smoker Non-prescribed substance use: denies use 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 Highest level of school completed/degree received: some college, no degree Meds Home Medications and Allergies Home Medications ?Medication ?Instructions ?Recorded ?Confirmed ?Type aspirin 81 mg capsule 81 mg PO DAILY 11/18/23 12/07/24 History atenolol 25 mg tablet 25 mg PO Q24H 11/18/23 12/07/24 History atorvastatin 80 mg tablet 80 mg PO DAILY 11/18/23 12/07/24 History clopidogrel 75 mg tablet 75 mg PO DAILY 11/18/23 12/07/24 History insulin glargine 100 unit/mL (3 50 unit subcut DAILY 11/18/23 12/07/24 History mL) subcutaneous pen (Lantus Solostar U-100 Insulin) pantoprazole 40 mg tablet,delayed 40 mg PO DAILY 11/18/23 12/07/24 History release pioglitazone 15 mg tablet 15 mg PO DAILY 11/18/23 12/07/24 History baclofen 10 mg tablet 10 mg PO TID 03/18/24 12/07/24 History baclofen 10 mg tablet 10 mg PO BID PRN muscle spasm #180 12/16/24 Rx tabs Allergies Allergy/AdvReac Type Severity Reaction Status Date / Time metformin AdvReac Diarrhea Verified 12/07/24 11:29 Exam Constitutional Documenting provider has reviewed patient's vital signs: yes Common normals: no apparent distress, oriented x3 and alert General appearance: cooperative HENMT Common normals: normocephalic, hearing grossly normal bilaterally and moist oral mucous membranes Head and scalp: normocephalic Eye Common normals: PERRL Pupil: PERRL Neck & C-Spine Common normals: full ROM General: normal visual inspection Chest Common normals: inspection of chest normal Respiratory Common normals: normal respiratory effort, no retractions and no use of accessory muscles Back & Pelvis Lumbar spine/lower back: ROM limited, pain with ROM and straight leg raise negative bilaterally Other: strength 5/5 in BLE sensation intact BLE intermittent pain to bilateral L5/S1 pattern with activity Neuro Common normals: oriented x3 Sensorium/orientation: alert Psych Common normals: mental status grossly normal, thought process normal, cooperative, affect normal, speech normal and activity/motor behavior normal Speech: normal speech Thought process: normal thought process Results Additional Findings Additional findings: If on a controlled substance or opioids, I have checked an [place] report on this patient and there are no aberrancies noted in the prescribing history.??If on a controlled substance or opioid a drug screen was completed and reviewed within the last year, and if there has not been a drug screen completed we ordered one today to monitor higher risk, state monitored pain medication use. As part of providing excellent, safe, comprehensive care, the following was completed at our patient's visit: 1. A medication reconciliation and review to ensure accurate knowledge of current/active medications, including asking our patients to inform us about any [id number] medications or herbal remedies/nutritional supplements/alternative remedies. 2. A review to specifically ensure our patients have had annual screening for screening for depression, screening for tobacco use, and screening for unhealthy alcohol use. For concerning screenings had a discussion with the patient, provided patient education, and recommended follow-up with primary care provider when appropriate. If patient noted with a risk of falling, they received education on strength, gait, and balance training to prevent future risk of falling. Portions of this note may have been carried over from the previous visit and updated as appropriate. Please note this office utilizes paper charting in addition to the electronic medical record. A list of current medications, vitals, and PMH is available there as the clinical staff outside of myself do not have access to [facility] charting during the clinic day operations. As part of providing quality comprehensive care the current medications, vitals, and PMH were reviewed in the paper chart. Assessment and Plan Assessment and Plan (1) Lumbar stenosis with neurogenic claudication: (2) Lumbar spondylosis: (3) Myalgia: Plan The patient has had over 3 months of moderate to severe low back and BLE pain with functional impairment and inadequate response to conservative care including NSAIDS (unless there are contraindication such as concurrent blood thinners), multiple oral or topical pain medications, and home exercise program/physical therapy.? Patient has completed >6 weeks of guided home exercise program and/or formal physical therapy program without relief of their symptoms.? I have reviewed the imaging of the lumbar spine and no red flags were identified.? The Oswestry Disability Index was completed, and the patient scored a 20%.? can repeat bilateral L5-S1 TFESI under fluoroscopy as needed. pt will be going to [place] end of march through august 2025 continue baclofen 10mg bid prn pain/spasms continue HEP as tolerated f/u 6 months, sooner if needed
== END 2025-03-11 13:46 | disposition home or self-care (01) ==
LOC: PM 13:46
PROVIDERS: PCP Internal Medicine; Visit Provider Nurse Practitioner
DX: M48.062 Spinal stenosis, lumbar region with neurogenic claudication (principal); M47.816 Spondylosis without myelopathy or radiculopathy, lumbar region; M79.10 Myalgia, unspecified site
CPT/HCPCS: G0463